=== PATIENT | female | born 1945 | race Caucasian/White ===

== ENCOUNTER 2016-08-23 11:50 | Emergency (ER) | payer MEDICARE, MEDICAID ==
[2016-08-23] MEDS ORDERED: Acetaminophen TAB* 325 MG PO ONE (12:11)
--- NOTE | 2016-08-23 13:48 | UC ---
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 Hx From Patient Unobtainable Due To: Other - moderate MR ?: No Onset/Duration: Gradual Onset, Lasting Days, Still Present Skin Exposure Onset/Duration: Days Ago Timing: Constant Onset Severity: Mild Current Severity: Mild Location: Discrete Character: Swelling, Redness Aggravating: Nothing Alleviating: Nothing Associated Signs & Symptoms: Negative: Red Streaks, Joint Swelling <Mae Richter - Last Filed: 08/23/16 19:19> <Lluvia Saunders - Last Filed: 08/24/16 06:55> - History of Current Complaint Chief Complaint: UCLowerExtremity Time Seen by Provider: 08/23/16 13:19 Stated Complaint: SWOLLEN LEG WOUND ON BACK OF LEG - Allergy/Home Medications Allergies/Adverse Reactions: Allergies Allergy/AdvReac Type Severity Reaction Status Date / Time No Known Allergies Allergy Verified 08/23/16 12:14 Review of Systems Constitutional: Negative Skin: Bruising - posterior right leg with scabbed abrasion and erythema around abrasion Eyes: Negative ENT: Negative Respiratory: Negative Cardiovascular: Negative Gastrointestinal: Negative Genitourinary: Negative Motor: Negative Neurovascular: Negative Musculoskeletal: Negative Neurological: Negative Psychological: Negative All Other Systems Reviewed And Are Negative: Yes <Mae Richter - Last Filed: 08/23/16 19:19> PMH/Surg Hx/FS Hx/Imm Hx Previously Healthy: Yes Endocrine History: Hypothyroidism Cardiovascular History: Hypertension GI/ History: Gastroesophageal Reflux Psychological History: Bipolar Disorder, Other Other Psychological History: moderate MR - Surgical History Surgical History: Yes Surgery Procedure, Year, and Place: [address] [place] [facility] [place]IL[place] HERNIA [place]PA[place] 02/19/2015 - Family History Known Family History: Negative: Cardiac Disease, Hypertension, Diabetes - Social History Occupation: Disabled Lives: Prison Alcohol Use: None Substance Use Type: None Smoking Status (MU): Former Smoker When Did the Patient Quit Smoking/Using Tobacco: 2003 <Mae Richter - Last Filed: 08/23/16 19:19> Physical Exam Triage Information Reviewed: Yes Appearance: Well-Appearing, No Pain Distress, Well-Nourished Vital Signs: Initial Vital Signs Temp 97.4 F 08/23/16 12:08 Pulse 66 08/23/16 12:08 Resp 18 08/23/16 12:08 BP 125/73 08/23/16 12:08 Pulse Ox 96 08/23/16 12:08 Vital Signs Reviewed: Yes Eye Exam: Normal Eyes: Positive: Conjunctiva Clear ENT Exam: Normal ENT: Positive: Normal ENT inspection, Hearing grossly normal. Negative: Nasal congestion, Nasal drainage, Trismus, Muffled/hoarse voice Dental Exam: Normal Neck exam: Normal Neck: Positive: Supple, Nontender Respiratory Exam: Normal Respiratory: Positive: Chest non-tender, No respiratory distress, No accessory muscle use Cardiovascular Exam: Normal Cardiovascular: Positive: RRR, No Murmur, Pulses Normal, Brisk Capillary Refill Musculoskeletal Exam: Normal Musculoskeletal: Positive: Strength Intact, ROM Intact, No Edema Neurological Exam: Normal Neurological: Positive: Alert, Muscle Tone Normal Psychological Exam: Normal Skin Exam: Other Skin: Positive: Other - sbabbed abrasion back of right leg with erythema <Mae Richter - Last Filed: 08/23/16 19:19> Vital Signs: Initial Vital Signs Temp 97.4 F 08/23/16 12:08 Pulse 66 08/23/16 12:08 Resp 18 08/23/16 12:08 BP 125/73 08/23/16 12:08 Pulse Ox 96 08/23/16 12:08 <Lluvia Saunders - Last Filed: 08/24/16 06:55> Course/Dx - Course Course Of Treatment: Mepilex dressing applied (2 additional given to patient) change q 3 days , 7 days of keflex,warm compress, follow with pcp - Differential Diagnoses - Skin Complaint Differential Diagnoses: Cellulitis, Impetigo - Diagnoses Provider Diagnoses: Abrasion with cellulitis posterior right lower leg <Mae Richter - Last Filed: 08/23/16 19:19> Discharge <Mae Richter - Last Filed: 08/23/16 19:19> <Lluvia Saunders - Last Filed: 08/24/16 06:55> - Discharge Plan Condition: Stable Disposition: HOME Prescriptions: Cephalexin CAP* [Keflex CAP*] 500 mg PO TID #21 cap Patient Education Materials: Cellulitis (ED), Leg Edema (ED) Referrals: Elif Luevano MD [Primary Care Provider] - 1 Week Additional Instructions: Change Mepilex dressing every three days times two then leave open to air Attestation Statement User Type: Provider Provider Attestation: I was available for consult. This patient was seen by the LIVIA. The patient was not presented to, seen by, or examined by me. -Federico <Lluvia Saunders - Last Filed: 08/24/16 06:55>
[2016-08-23 14:04] VITALS: BP 140/79
== END 2016-08-23 14:04 | disposition home or self-care (01) ==
LOC: UCEAST 11:50
DX: S80.811A Abrasion, right lower leg, initial encounter (principal); L03.115 Cellulitis of right lower limb; X58.XXXA Exposure to other specified factors, initial encounter; F79 Unspecified intellectual disabilities; I10 Essential (primary) hypertension; E03.9 Hypothyroidism, unspecified
CPT/HCPCS: 99212; A9270-GY; G0463

== ENCOUNTER 2017-01-09 09:23 | Day surgery (SDC) | payer MEDICARE, MEDICAID ==
[~2017-01-09 09:23] MED LIST: Acetaminophen TAB* 325 MG PO PRN; Buffered Lidocaine 0.9% SYRIN* 5 ML/SYR SYRINGE INTRADERM ONE
[2017-01-09] MEDS ORDERED: Midazolam* 1 MG/ML 2 ML VIAL (2 MG) ONE (10:10)
[2017-01-09 11:33] VITALS: BP 120/81
[2017-01-09] MEDS ORDERED: Flurbiprofen 0.03% OPTH.SOL* 2.5 ML BTL ONE (11:34)
[2017-01-09] MEDS ORDERED: Tropicamide 1% OPTH.SOL* BTL ONE (11:34)
[2017-01-09] MEDS ORDERED: Lidocaine 1% MPF* 2 ML VIAL ONE (11:34)
[2017-01-09] MEDS ORDERED: Tetracaine 0.5% OPTH.SOL 4 ML* 1 DROP BTL ONE (11:34)
[2017-01-09] MEDS ORDERED: Cyclopentolate 1% OPTH.SOL* 2 ML BTL ONE (11:34)
[2017-01-09] MEDS ORDERED: Buffered Lidocaine 0.9% SYRIN* 5 ML/SYR SYRINGE ONE (11:34)
[2017-01-09] MEDS ORDERED: Phenylephrine 2.5% OPTH.SOL* 2 ML BTL ONE (11:34)
[2017-01-09] MEDS ORDERED: acetaZOLAMIDE TAB* 250 MG ONE (11:34)
[2017-01-09] MEDS ORDERED: Povidone Iodine 5% OPTH* 30 ML BTL ONE (11:34)
[2017-01-09] MEDS ORDERED: Neomycin/Polymy/Dex OPHTH.OIN* 3.5 GM ONE (11:34)
--- NOTE | 2017-01-10 00:55 | OP ---
DATE OF OPERATION: 01/09/17 - [facility] DATE OF : 41 SURGEON: Hudson Kim MD ANESTHESIOLOGIST: Lluvia Ann MD ANESTHESIA: Monitored anesthesia care. PRE-OP DIAGNOSIS: Cataract, right eye. POST-OP DIAGNOSIS: Cataract, right eye. OPERATIVE PROCEDURE: Cataract surgery of the right eye. IMPLANTS: SN60WF 20.0 diopter lens to the right eye. COMPLICATIONS: None. DESCRIPTION OF PROCEDURE: The patient was given phenylephrine 2.5% and cyclopentolate 1% eye drops to the operative eye in the preoperative area. The patient was brought to the operating room where a time-out was taken to identify the correct patient, site and side of the surgery. The patient's right eye was prepped and draped in the usual sterile fashion with 5% Betadine. A second time- out was taken to verify the correct patient, site and side of the surgery and correct lens selection. A lid speculum was placed to the right eye. A 1-mm paracentesis blade was used to make a clear corneal incision in the superotemporal position. Preservative-free 1% lidocaine was injected into the anterior chamber. DisCoVisc was then injected in the anterior chamber. A 2.75-mm keratome blade was used to make a triplanar incision at the inferotemporal position. A cystotome initiated a capsulorrhexis, which was completed with Utrata forceps in a continuous and curvilinear manner. Hydrodissection of the lens was performed with BSS on a cannula. The lens could be spun in the capsular bag. The phacoemulsification handpiece was used with a [id number] technique to remove the nucleus in its entirety. The I/A handpiece then removed the residual cortical lens material. DisCoVisc was injected to inflate the capsular bag. The planned SN60WF 20.0 diopter lens was injected into the capsular bag. The residual DisCoVisc was removed from the eye with the I/A handpiece. The corneal incisions were hydrated and no leaks occurred at physiologic pressure around 20 mmHg per palpation. The lid speculum was removed and drapes removed. Maxitrol ointment was placed to the surface of the operative eye. A clear shield was placed over the operative eye. The patient was taken to the postoperative area in stable condition. [id number]/[facility] #: [id number] MTDD
== END 2017-01-09 11:48 | disposition home or self-care (01) ==
LOC: OREAST 09:23
PROVIDERS: ATTEND Student in an Organized Health Care Education/Training Program
DX: H25.11 Age-related nuclear cataract, right eye (principal); H31.092 Other chorioretinal scars, left eye; H43.821 Vitreomacular adhesion, right eye; I10 Essential (primary) hypertension; E03.9 Hypothyroidism, unspecified; F31.9 Bipolar disorder, unspecified; H52.4 Presbyopia; J44.9 Chronic obstructive pulmonary disease, unspecified; D64.9 Anemia, unspecified; R31.29 Other microscopic hematuria; H54.7 Unspecified visual loss
CPT/HCPCS: A9270-GY; J2250; V2632

== ENCOUNTER 2017-04-22 16:55 | Emergency (ER) | payer MEDICARE, MEDICAID ==
--- NOTE | 2017-04-22 17:45 | RAD ---
HISTORY: Left knee pain status post fall COMPARISONS: None VIEWS: 4, Frontal, lateral, axial, and oblique views of the left knee FINDINGS: BONE DENSITY: There is diffuse osteopenia. BONES: There is no displaced fracture. JOINTS: There is no arthropathy. There is no suprapatellar joint effusion or lipohemarthrosis. ALIGNMENT: There is no dislocation. SOFT TISSUES: Unremarkable. OTHER FINDINGS: None. IMPRESSION: NO ACUTE OSSEOUS INJURY. IF SYMPTOMS PERSIST, RECOMMEND REPEAT IMAGING.
--- OUTSIDE RECORDS SUMMARY | 2017-04-22 18:28 | XMS REPORT ---
:1945 External Reference #:[id number] [facility] Address [address] [address] Phone [phone] Care Team Providers Name Role Phone Elif Luevano MD Primary Care Physician Unavailable Payers Type Date Identification Numbers Payment Provider Subscriber Medicare Primary Effective: Policy Number: Medicare Carlene Mondragon 1975 [id number] PayID: [id number] [address] [place] [address] [employer] [place] [employer] Policy Number: [id number] Medicaid Carlene Mondragon PayID: [id number] [address] [place] [address] Problems Date Description Provider Status Onset: 12/21/2009 Chronic obstructive lung disease Elif Luevano M.D. Active Onset: 11/29/2012 Mixed hyperlipidemia Elif Luevano M.D. Active Onset: 11/29/2012 Hypothyroidism Elif Luevano M.D. Active Onset: 02/02/2015 Essential hypertension Elif Luevano M.D. Active Onset: 02/02/2015 Bipolar disorder Elif Luevano M.D. Active Family History Date Family Member(s) Problem(s) Comments Father due to Blood clots () - cable maintainer does not know details Siblings 5 Siblings 1 brother , two other living, details unknown brothers and one sister who are still First Brother due to Unknown Causes () Social History Type Date Description Comments Marital Status Single Lives With skilled nursing [facility] - skilled nursing. Staffed 12/09. 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 Mary Gregg [phone]. 2. 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 Senior Care caregiver Mary reported that the state would need to be contacted for major decisions Allergies, Adverse Reactions, Alerts Date Description Reaction Status Severity Comments 10/14/2009 No Known Drug Allergy active Medications Medication Date Status Form Strength Qnty SIG Indications Ordering Provider Jobst Active 03/13 Active Misc 1pair For daily R60.0 Elif 20-30MMHG/Thigh use Cotton, High/Closed M.D. Toe/Medium Bacitracin 09/13 Active Ointment 500Unit/G 28.40 apply to Elif (External) M 0gm skin twice Cotton, daily as M.D. needed Omeprazole 03/[address] 20mg 60cap Take 1 Lydia s Capsule By MD Tiarra Mouth Every Morning And 1 Capsule By Mouth At Bedtime Vitamin D 11/15 Active Tablets 1000Unit 90tab one daily Elif (Cholecalcifero /2015 s Bassem l) M.D. Atorvastatin 09/07 Active Tablets 80mg 90tab take one Elif Calcium s tablet by Cotton, mouth every M.D. day Hearing Aid 02/27 Active Misc 4unit use as Elif Battery /2015 s directed Cotton, hearing aid M.D. services. Incruse Ellipta 02/02 Active Aerosol 62.5mcg/I 30uni one J44.9 Elif /2015 nh ts inhalation Cotton, every day M.D. Spacer 07/25 Active 1unit for use J44.9 Elif s with Cotton, inhalers M.D. Nebulizer 01/21 Active Kit QS for use 4 Elif Kit/Tubing/Mout times daily Cotton, hpiece as needed M.D. Tylenol 04/03 Active Tablets 325mg 120ta 1-2 by Elif /2013 bs mouth every Cotton, 4-6 hrs as M.D. needed for pain Felodipine ER 04/03 Active Tablets ER 10mg 90tab take one Elif 24HR s tablet by Cotton, mouth every M.D. day Daily-Jairo 01/12 Active Tablets 90tab take one Elif /2010 s tablet by Cotton, mouth every M.D. day Trazodone HCL 10/16 Active Tablets 50mg 30tab 1 tablet Elif /2010 s once daily Bassem, at bedtime M.DSuzette [place] 10/14 Active Capsules 300mg 60cap 1 by mouth Elif Carbonate s twice daily Mino Luevano Flovent HFA 10/01 Active Aerosol 220mcg/Ac 3unit inhale two Elif /2010 t s puffs by Cotton, mouth twice M.D. a day Abilify Active Tablets 5mg 30tab 1 tablet Elif /0000 s once a day Mino Luevano Fluticasone Active Suspension 50mcg/Act 3unit use two Elif Propionate s sprays into Cotton, each M.D. nostril once daily Oxygen Active 2 liters at Unknown /0000 hs Labetalol HCL Active Tablets 200mg 180ta take one Elif bs tablet by Cotton, mouth twice M.D. a day Levothyroxine Active Tablets 150mcg 90tab take one Elif Sodium s tablet by Cotton, mouth every M.D. day Multi Complete Active Capsules daily Unknown /0000 Cephalexin 04/06 Hx Tablets 500mg 9tabs take one L03.115 Elif /2018 tablet Bassem, - every 8 M.D. 04/13 hours for /2018 additional 3 days (total 10 days) Jobst Active 07/21 Hx Misc 2Pair For daily R60.0 Elif 15-20MMHG/Knee use Cotton, High/Closed - M.D. Toe/Medium 03/13 Sulfamethoxazol 06/11 Hx Tablets 800-160mg 18tab Take One Unknown e/Trimethoprim s Tablet By DS - Mouth Two 07/21 Times A Day Levofloxacin 01/20 Hx Tablets 500mg 10tab one by 786.05 Filiebrto s mouth daily MARTINA Kc - for 10 days 01/31 Albuterol 01/20 Hx Nebulizer (2.5mg/3M 75ml one ampule 786.05 Elif L) 0.083% 2-4 times a Cotton, - day as M.D. 11/18 needed for sob. Spiriva 01/10 Hx Capsules 18mcg 30cap Inhale The J44.9 Elif Handihaler s Contents Of Cotton, - One Capsule M.D. 02/02 By Mouth /2014 Every Day Doxycycline 11/28 Hx Tablets 100mg 20tab 1 tab by 786.2 Elif Hyclate s mouth twice Cotton, - a day for M.D. 11/28 Doxycycline 11/28 Hx Tablets 100mg 20tab 1 tab by 786.2 Elif Hyclate s mouth twice Cotton, - a day for M.D. 11/28 Levofloxacin 11/28 Hx Tablets 750mg 10tab 1 by mouth 786.2 Elif s every day Cotton, - for 10 days M.D. 12/03 Zostavax 02/15 Hx Solution 66904Yph/ 1unit 1 dose s/c Rec 0.65ML s Cotton, - M.D. 03/30 Lipitor 12/29 Hx Tablets 80mg 90tab take one s tablet by Cotton, - mouth every M.D. Jobst Active 10/24 Hx Misc 2unit for daily Elif 20-30MMHG/Knee s use Dx: r Cotton, High/Closed Toe - 60.0 M.D. 07/21 Jobst Relief 10/14 Hx Misc 1unit For daily Elif 20-30MMHG/Knee /2012 s use calf Cotton, High/Open Toe - 14" length M.D. 10/24 17" knee 02/21" Cephalexin 09/19 Hx Capsules 500mg 21cap 1 po tid 682.6 Shana s for 7 days Varn, N.P. - 09/26 Amoxicillin/Cla 09/07 Hx Tablets 875-125mg 14tab one tablet 682.6 Shana vulanat s by mouth Varn, N.P. Potassium - twice daily 09/14 for 7 days Lipitor 07/04 Hx Tablets 40mg 90tab Take One s Tablet By Cotton, - Mouth Every M.D. Tussin DM 04/03 Hx Syrup 100-10mg/ prn 5ML Cotton, - M.D. 07/02 Ferrous Sulfate 07/11 Hx Tablets 325(65Fe) 30tab Take 1 mg s Tablet By Cotton, - Mouth 3 M.D. 11/30 Times Weekly; Increase To Once Daily Over 2 To 3 Weeks Atorvastatin 06/29 Hx Tablets 40mg 90tab 1 by mouth s once daily Cotton, - M.D. 07/04 Iron Supplement 04/02 Hx Tablets 325(65Fe) 30tab 1 po 3 mg s times Cotton, - weekly, M.D. 11/30 increase to once daily over 2-3 weeks Bag [place] 01/04 Hx apply to feet but Cotton, - not between M.D. 01/04 toes bid. Silicone Toe 01/[address] [facility] Wrap Slee and remove Cotton, - at night. M.D. 01/04 Travel Deferred 05/06 Hx Patient was advised not Cotton, - to travel M.D. 05/1304/27/10 through 05/11/10 due to a serious medical illness. Atrovent HFA 05/04 Hx Aerosol 17mcg/Act 12.9u Inhale Two J44.9 nits Puffs By Cotton, - Mouth Every M.D. 02/20 4 Hours Needed Mucinex 04/27 Hx Tablets ER 600mg 30tab one po 496 12HR s every 12 Cotton, - hours M.D. 05/04 Ipratropium 04/14 Hx Solution 0.5-2.5(3 60uni 1 vial in Elif [place]/Albuter )mg/3ML ts nebulizer Cotton, ol Sulfate - twice daily M.D. 05/04 Nebulizer 04/14 Hx 1unit use three s times daily Cotton, - as needed M.D. 05/04 Budesonide 04/14 Hx Suspension 0.5mg/2ML 60uni 2ml in Elif Respules ts nebulizer Cotton, - twice daily M.D. 05/04 Multi-Vitamin/M 11/13 Hx Tablets 30tab 1 by mouth Elif iner s once daily Cotton, - M.D. 01/12 Lipitor 10/22 Hx Tablets 40mg 90tab 1 by mouth Elif /2010 s once daily Cotton, - M.D. 06/29 Albuterol 10/14 Hx 1unit 2 puffs 4 Elif Inhaler s times a day Cotton, - as needed M.D. 01/05 Felodipine ER 09/03 Hx Tablets ER 5mg 90tab Take Two 24HR s TABLETs By Cotton, - Mouth Every M.D. Lipitor Hx Tablets 20mg 100ta one tablet Elif /0000 bs daily Cotton, - M.D. 10/22 Levaquin Hx Tablets 500mg 10tab 1 po qd Unknown / s - 05/04 Guaifenesin-DM Hx Syrup 100-10mg/ 120cc 1-2 Elif /0000 5ML teaspoons [place], - every 4-6 M.D. 07/09 hours needed Prednisone Hx Tablets 20mg 10tab 1 tablet Unknown / s twice a day - 05/04 Vitamin D Hx Capsules 1000Unit 30cap po qd Unknown / s - 11/15 Gas-X Hx Chewtabs 80mg prn Unknown /0000 - 07/02 Amoxicillin/Pot 00 Hx Tablets 875-125mg 20tab 1 po bid Unknown assium / s Clavulanate - 10/05 Bacitracin Hx Ointment as needed Unknown /0000 - 09/13 Amoxicillin/Cla /00 Hx Tablets 875-125mg one tablet Unknown vulanate /0000 by mouth Potassium - twice daily 10/12 for 10 days /2015 Cephalexin Hx Tablets 500mg take 1 by Unknown /0000 mouth three - times a day 12/21 x 7 Medications Administered in Office Medication Date Status Form Strength Qnty SIG Indications Ordering Provider PPD 02/08/20 Administered Injection Elif 16 Mino Luevano PPD 12/12/19 Administered Injection Romie Walker M.D. PPD 08/30/19 Administered Injection Fabby Walker M.D. PPD 08/30/19 Administered Injection Fabby Walker M.D. Immunizations CPT Code Status Date Vaccine Lot # [id number] Given 01/27/2014 Pneumococcal Conjugate Vaccine 13 Valent For [id number] Intramuscular Use 91333 Given 01/10/2014 Flu Vaccine Split Virus Preservative Free For [id number] Indiv 3Yr Older 23825 Given 11/29/2012 Flu Vaccine Split Virus Preservative Free For [id number] Indiv 3Yr Older Q2038 Given 11/28/2011 Fluzone Vaccine [id number] 54927 Given 04/25/2011 Tdap - Tetanus/Diptheria/Acellular Pertussis [id number] Q2035 Given 11/23/2010 Afluria Vaccine [id number] 24099 Given 12/05/2009 Influenza Virus 3Yrs & Over 18693 Given 10/16/2009 Pneumonia Vaccine 01420 Given 02/27/2009 Influenza Virus Vaccine, Pandemic Formulation 95499 Given 10/13/2008 Influenza Virus 3Yrs & Over 09350 Given 12/12/2007 Influenza Virus 3Yrs & Over 12256 Given 12/12/2007 Influenza Virus 3Yrs & Over 86815 Given 11/29/2006 Influenza Virus 3Yrs & Over 62694 Given 08/29/2006 Tetanus And Diptheria (Td) For Adult Use Preservative Free Vital Signs Date Vital Result Comment 04/17/2017 Weight 156.50 lb Heart Rate 79 /min BP Systolic Sitting 130 mmHg BP Diastolic Sitting 82 mmHg Body Temperature 97.6 F O2 % BldC Oximetry 92 % 04/10/2017 Weight 152.50 lb Heart Rate 67 /min BP Systolic 124 mmHg BP Diastolic 76 mmHg Body Temperature 96.9 F O2 % BldC Oximetry 92 % 04/06/2017 Weight 154.50 lb Heart Rate 78 /min BP Systolic 124 mmHg BP Diastolic 72 mmHg Body Temperature 96.6 F O2 % BldC Oximetry 96 % 03/13/2017 Weight 154.75 lb Heart Rate 63 /min BP Systolic 120 mmHg BP Diastolic 70 mmHg Body Temperature 97.7 F O2 % BldC Oximetry 97 % 12/23/2016 Height 58 inches 4'10" Weight 144.00 lb Heart Rate 74 /min BP Systolic 130 mmHg BP Diastolic 80 mmHg Body Temperature 98.2 F O2 % BldC Oximetry 94 % BMI (Body Mass Index) 30.1 kg/m2 09/20/2016 Weight 140.25 lb Heart Rate 84 /min BP Systolic 140 mmHg BP Diastolic 68 mmHg Body Temperature 98.6 F O2 % BldC Oximetry 96 % 08/30/2016 Weight 137.00 lb Heart Rate 60 /min BP Systolic Sitting 100 mmHg BP Diastolic Sitting 70 mmHg Respiratory Rate 16 /min Body Temperature 97.6 F 07/21/2016 Weight 134.00 lb Heart Rate 55 /min BP Systolic Sitting 136 mmHg BP Diastolic Sitting 70 mmHg O2 % BldC Oximetry 98 % 06/14/2016 Weight 139.00 lb Heart Rate 81 /min BP Systolic Sitting 114 mmHg BP Diastolic Sitting 72 mmHg Body Temperature 97.8 F O2 % BldC Oximetry 94 % 06/06/2016 Heart Rate 82 /min BP Systolic Sitting 136 mmHg BP Diastolic Sitting 82 mmHg Respiratory Rate 16 /min 05/13/2016 Weight 137.00 lb Heart Rate 62 /min BP Systolic Sitting 134 mmHg BP Diastolic Sitting 88 mmHg Body Temperature 97.6 F O2 % BldC Oximetry 97 % 04/18/2016 Weight 133.00 lb Heart Rate 68 /min BP Systolic Sitting 124 mmHg BP Diastolic Sitting 86 mmHg Body Temperature 97.8 F O2 % BldC Oximetry 93 % 02/26/2016 Height 58 inches 4'10" Weight 139.00 lb Heart Rate 66 /min BP Systolic Sitting 136 mmHg BP Diastolic Sitting 77 mmHg Respiratory Rate 16 /min O2 % BldC Oximetry 97 % BMI (Body Mass Index) 29.0 kg/m2 02/11/2016 Height 58 inches 4'10" Weight 137.00 lb Heart Rate 65 /min BP Systolic 130 mmHg BP Diastolic 78 mmHg O2 % BldC Oximetry 95 % BMI (Body Mass Index) 28.6 kg/m2 02/08/2016 Height 58 inches 4'10" Weight 137.00 lb Heart Rate 70 /min BP Systolic Sitting 140 mmHg BP Diastolic Sitting 80 mmHg O2 % BldC Oximetry 98 % BMI (Body Mass Index) 28.6 kg/m2 11/19/2015 Height 58.25 inches 4'10.25" Weight 139.00 lb Heart Rate 61 /min BP Systolic 139 mmHg BP Diastolic 82 mmHg Body Temperature 97.9 F O2 % BldC Oximetry 97 % BMI (Body Mass Index) 28.8 kg/m2 11/02/2015 Weight 138.00 lb Heart Rate 68 /min BP Systolic Sitting 142 mmHg BP Diastolic Sitting 84 mmHg Body Temperature 98.3 F 10/13/2015 Weight 137.00 lb Heart Rate 66 /min BP Systolic Sitting 124 mmHg BP Diastolic Sitting 72 mmHg Respiratory Rate 15 /min Body Temperature 98.4 F O2 % BldC Oximetry 98 % 09/29/2015 Weight 135.00 lb Heart Rate 76 /min BP Systolic Sitting 122 mmHg BP Diastolic Sitting 70 mmHg Respiratory Rate 15 /min Body Temperature 97.6 F O2 % BldC Oximetry 98 % 07/27/2015 Weight 139.00 lb Heart Rate 60 /min BP Systolic Sitting 136 mmHg BP Diastolic Sitting 73 mmHg Body Temperature 97.7 F O2 % BldC Oximetry 97 % 04/09/2015 Height 58.25 inches 4'10.25" Weight 143.00 lb Heart Rate 72 /min BP Systolic Sitting 124 mmHg BP Diastolic Sitting 80 mmHg Respiratory Rate 14 /min O2 % BldC Oximetry 98 % BMI (Body Mass Index) 29.6 kg/m2 02/02/2015 Height 58.25 inches 4'10.25" Weight 141.50 lb Heart Rate 77 /min BP Systolic Sitting 130 mmHg 146/76 BP Diastolic Sitting 80 mmHg 146/76 Respiratory Rate 20 /min Body Temperature 98.0 F O2 % BldC Oximetry 94 % BMI (Body Mass Index) 29.3 kg/m2 10/20/2014 Weight 143.00 lb Heart Rate 67 /min BP Systolic Sitting 122 mmHg BP Diastolic Sitting 70 mmHg Body Temperature 97.5 F O2 % BldC Oximetry 97 % 07/25/2014 Weight 144.00 lb Heart Rate 69 /min BP Systolic Sitting 146 mmHg BP Diastolic Sitting 81 mmHg Body Temperature 97.8 F 07/09/2014 Height 58.75 inches 4'10.75" Weight 143.00 lb Heart Rate 50 /min BP Systolic 112 mmHg BP Diastolic 62 mmHg O2 % BldC Oximetry 93 % BMI (Body Mass Index) 29.1 kg/m2 01/27/2014 Weight 151.00 lb Heart Rate 72 /min BP Systolic 110 mmHg BP Diastolic 60 mmHg Body Temperature 98.2 F O2 % BldC Oximetry 97 % 01/20/2014 Height 58.75 inches 4'10.75" Weight 153.00 lb Heart Rate 96 /min BP Systolic Sitting 110 mmHg BP Diastolic Sitting 60 mmHg Body Temperature 101.5 F O2 % BldC Oximetry 90 % BMI (Body Mass Index) 31.2 kg/m2 01/10/2014 Height 58.75 inches 4'10.75" Weight 153.50 lb Heart Rate 72 /min BP Systolic Sitting 128 mmHg BP Diastolic Sitting 70 mmHg Body Temperature 97.3 F O2 % BldC Oximetry 97 % BMI (Body Mass Index) 31.3 kg/m2 11/28/2013 Weight 156.00 lb Heart Rate 90 /min BP Systolic Sitting 134 mmHg BP Diastolic Sitting 72 mmHg Body Temperature 100.6 F O2 % BldC Oximetry 98 % 07/02/2013 Weight 156.00 lb Heart Rate 60 /min BP Systolic Sitting 114 mmHg BP Diastolic Sitting 62 mmHg Body Temperature 98.5 F O2 % BldC Oximetry 95 % 04/01/2013 Weight 157.00 lb Heart Rate 60 /min BP Systolic 124 mmHg BP Diastolic 76 mmHg 11/29/2012 Height 58.5 inches 4'10.50" Weight 156.00 lb Heart Rate 64 /min BP Systolic Sitting 122 mmHg BP Diastolic Sitting 80 mmHg BMI (Body Mass Index) 32.0 kg/m2 10/05/2012 Weight 154.50 lb Heart Rate 60 /min BP Systolic Sitting 130 mmHg BP Diastolic Sitting 70 mmHg Body Temperature 98.1 F 09/19/2012 Weight 150.00 lb Heart Rate 64 /min BP Systolic Sitting 120 mmHg BP Diastolic Sitting 72 mmHg Body Temperature 98.6 F 09/07/2012 Weight 149.00 lb Heart Rate 66 /min BP Systolic Sitting 140 mmHg BP Diastolic Sitting 84 mmHg Body Temperature 98.6 F 06/04/2012 Weight 151.00 lb Heart Rate 56 /min BP Systolic Sitting 120 mmHg BP Diastolic Sitting 68 mmHg 04/03/2012 Height 58.5 inches 4'10.50" Weight 150.50 lb Heart Rate 56 /min BP Systolic Sitting 120 mmHg right: 120/60 recheck by me 118/74 BP Diastolic Sitting 70 mmHg right: 120/60 recheck by me 118/74 BMI (Body Mass Index) 30.9 kg/m2 11/28/2011 Height 58.5 inches 4'10.50" Weight 153.00 lb Heart Rate 56 /min BP Systolic Sitting 128 mmHg BP Diastolic Sitting 74 mmHg O2 % BldC Oximetry 97 % BMI (Body Mass Index) 31.4 kg/m2 04/25/2011 Height 58.5 inches 4'10.50" Weight 159.00 lb Heart Rate 70 /min BP Systolic Sitting 118 mmHg BP Diastolic Sitting 64 mmHg BMI (Body Mass Index) 32.7 kg/m2 11/23/2010 Height 58.5 inches 4'10.50" Weight 164.00 lb Heart Rate 70 /min BP Systolic Sitting 130 mmHg BP Diastolic Sitting 82 mmHg BMI (Body Mass Index) 33.7 kg/m2 07/09/2010 Height 58.5 inches 4'10.50" Weight 167.00 lb Heart Rate 64 /min BP Systolic Sitting 110 mmHg BP Diastolic Sitting 78 mmHg O2 % BldC Oximetry 95 % BMI (Body Mass Index) 34.3 kg/m2 05/04/2010 Weight 169.00 lb Heart Rate 58 /min BP Systolic 118 mmHg BP Diastolic 78 mmHg Body Temperature 98.3 F O2 % BldC Oximetry 97 % 04/27/2010 Weight 168.75 lb Heart Rate 68 /min BP Systolic 102 mmHg BP Diastolic 70 mmHg Body Temperature 98.5 F O2 % BldC Oximetry 92 % 04/19/2010 Heart Rate 85 /min BP Systolic 122 mmHg BP Diastolic 80 mmHg Respiratory Rate 20 /min Body Temperature 98.9 F O2 % BldC Oximetry 90 % 04/14/2010 Weight 171.00 lb Heart Rate 70 /min BP Systolic 124 mmHg BP Diastolic 86 mmHg Body Temperature 97.0 F O2 % BldC Oximetry 92 % 10/16/2009 Height 57 inches 4'9" Weight 171.75 lb Heart Rate 58 /min BP Systolic 115 mmHg BP Diastolic 70 mmHg BMI (Body Mass Index) 37.2 kg/m2 Results Test Date Test Result H/L Range Note Urinalysis Profile 03/24/2017 Urine Color Straw Urine Appearance Clear Urine Specific [place] 1.004 Low 1.010-1.030 Urine pH 7.0 5-9 Urine Urobilinogen Negative Negative Urine Ketones Negative Negative Urine Protein Negative Negative Urine Leukocytes 1+ Negative Urine Blood Negative Negative Urine Nitrite Negative Negative Urine Bilirubin Negative Negative Urine Glucose Negative Negative Urine White Blood Cell Trace(0-5/hpf) Absent Urine Red Blood Cell Absent Absent Urine Bacteria Absent Absent Urine Squamous Epithelial Cell Present Absent Urine Culture And 03/24/2017 Urine Culture SEE RESULT BELOW 1 Sensitivities Basic Metabolic Panel 03/24/2017 Sodium 142 mmol/L 133-145 Potassium 3.9 mmol/L 3.5-5.0 Chloride 109 mmol/L 101-111 Co2 Carbon Dioxide 29 mmol/L 22-32 Anion Gap 4 mmol/L 2-11 Glucose 80 mg/dL 70-100 Blood Urea Nitrogen 16 mg/dL 6-24 Creatinine 0.84 mg/dL 0.51-0.95 BUN/Creatinine Ratio 19.0 8-20 Calcium 9.9 mg/dL 8.6-10.3 Egfr Non- 66.5 >60 Egfr 85.5 >60 2 Lipid Profile (Trig/Chol/HDL) 03/24/2017 Triglycerides 60 mg/dL 3 Cholesterol 188 mg/dL 4 HDL Cholesterol 93.0 mg/dL 5 LDL Cholesterol 83 mg/dL 6 Comp Metabolic Panel 03/24/2017 Sodium 143 mmol/L 133-145 Potassium 3.9 mmol/L 3.5-5.0 Chloride 108 mmol/L 101-111 Co2 Carbon Dioxide 29 mmol/L 22-32 Anion Gap 6 mmol/L 2-11 Glucose 78 mg/dL 70-100 Blood Urea Nitrogen 16 mg/dL 6-24 Creatinine 0.85 mg/dL 0.51-0.95 BUN/Creatinine Ratio 18.8 8-20 Calcium 10.0 mg/dL 8.6-10.3 Total Protein 6.7 g/dL 6.4-8.9 Albumin 4.1 g/dL 3.2-5.2 Globulin 2.6 g/dL 2-4 Albumin/Globulin Ratio 1.6 1-3 Total Bilirubin 0.60 mg/dL 0.2-1.0 Alkaline Phosphatase 87 U/L 34-104 Alt 27 U/L 7-52 Ast 30 U/L 13-39 Egfr Non- 65.6 >60 Egfr 84.3 >60 7 Laboratory test finding 03/24/2017 TSH (Thyroid Stim 5.62 mcIU/mL High 0.34-5.60 8 Horm) [place] 0.51 mmol/L Low 0.6-1.2 9 Lupus Anticoagulant AB 09/14/2016 Lac Aptt Mix 1:1 43 sec 26 - 36 10 Lac DRVVT Mix Ratio 1.7 ratio 0.0 - 1.1 11 Lup Hexthrombin Time (Bovine) 19 sec 15 - 23 12 Platelet Neutralization 43 13 Platelet Neutraliz Buffer Cont 56 sec 14 Dil [place] Confirm 1.9 ratio 0.0 - 1.1 15 Special Coagulation Interp Performed 16 Prothrombin Time(Lac) 10.8 sec 17 Lac Inr 1.0 Lac Aptt 49 sec 26 - 36 Lac DRVVT Screen Ratio 2.0 ratio 0.0 - 1.1 Lupus Anticoagulant Interpreta See Comment 18 Lupus Anticoagulant Review By Brandee Martinez <SEE NOTE> 19 Factor 8 Profile 09/14/2016 Coagulation Factor VIII Activi 153 % 55 - 200 20 von Willebrand Factor Antigen 199 % 55 - 200 21 VonWillibrand Factor Activity 172 % 55 - 200 22 von Willebrand Panel Interp See Comment 23 PTT Mixing Studies 09/14/2016 PTT/Normal Control 35.7 seconds 26.0-36.3 PTT/After 1 HR Incubation 39.6 seconds High 26.0-36.3 PT/PTT Mixing Study Interp (SEE NOTE) 24 Laboratory test finding 09/14/2016 Partial Thrombo Time 48.2 seconds High 26.0-36.3 PTT Inr/Protime 09/14/2016 Inr 0.90 0.89-1.11 CBC Auto Diff 06/28/2016 White Blood Count 7.9 10^3/uL 3.5-10.8 Red Blood Count 4.14 10^6/uL 4.0-5.4 Hemoglobin 12.8 g/dL 12.0-16.0 Hematocrit 39 % 35-47 Mean Corpuscular Volume 93 fL 80-97 Mean Corpuscular Hemoglobin 31 pg 27-31 Mean Corpuscular HGB Conc 33 g/dL 31-36 Red Cell Distribution Width 14 % 10.5-15 Platelet Count 381 10^3/uL 150-450 Mean Platelet Volume 8 um3 7.4-10.4 Abs Neutrophils 5.7 10^3/uL 1.5-7.7 Abs Lymphocytes 1.6 10^3/uL 1.0-4.8 Abs Monocytes 0.4 10^3/uL 0-0.8 Abs Eosinophils 0.1 10^3/uL 0-0.6 Abs Basophils 0.1 10^3/uL 0-0.2 Abs Nucleated RBC 0.01 10^3/uL Granulocyte % 71.9 % 38-83 Lymphocyte % 20.0 % Low 25-47 Monocyte % 5.5 % 1-9 Eosinophil % 1.2 % 0-6 Basophil % 1.4 % 0-2 Nucleated Red Blood Cells % 0.1 Iron & Iron Binding Capacity 06/28/2016 Iron 67 g/dL 50-212 Unsaturated Iron Binding 450 g/dL Total Iron Binding Capacity 517 g/dL High 250-450 % Iron Saturation 13 % Low 15-55 Laboratory test finding 06/28/2016 Ferritin 14.8 ng/mL 11-307 Inr/Protime 06/28/2016 Inr 0.89 0.89-1.11 Laboratory test finding 06/28/2016 Partial Thrombo Time 51.4 seconds High 26.0-36.3 PTT [place] 0.50 mmol/L Low 0.6-1.2 Laboratory test finding 06/09/2016 [place] 0.55 mmol/L Low 0.6-1.2 TSH (Thyroid Stim Horm) 1.34 mcIU/mL 0.34-5.60 B-Type Natriuretic Peptide BNP 23 pg/mL 25 Lactic Acid 1.0 mmol/L 0.5-2.0 26 CKMB 06/09/2016 CKMB ng/mL 4.1 ng/mL 0.6-6.3 Urinalysis Profile 06/09/2016 Urine Color Yellow Urine Appearance Cloudy Urine Specific [place] 1.003 Low 1.010-1.030 Urine pH 6.0 5-9 Urine Urobilinogen Negative Negative Urine Ketones Negative Negative Urine Protein Negative Negative Urine Leukocytes 3+ Negative Urine Blood Negative Negative Urine Nitrite Negative Negative Urine Bilirubin Negative Negative Urine Glucose Negative Negative Urine White Blood Cell 2+(11-20/hpf) Absent Urine Red Blood Cell 2+(6-10/hpf) Absent Urine Bacteria Absent Absent Urine Squamous Epithelial Cell Present Absent Urine Culture And 06/09/2016 Urine Culture SEE RESULT BELOW 27 Sensitivities CBC Auto Diff 06/09/2016 White Blood Count 9.9 10^3/uL 3.5-10.8 Red Blood Count 3.78 10^6/uL Low 4.0-5.4 Hemoglobin 11.8 g/dL Low 12.0-16.0 Hematocrit 35 % 35-47 Mean Corpuscular Volume 93 fL 80-97 Mean Corpuscular Hemoglobin 31 pg 27-31 Mean Corpuscular HGB Conc 33 g/dL 31-36 Red Cell Distribution Width 14 % 10.5-15 Platelet Count 269 10^3/uL 150-450 Mean Platelet Volume 7 um3 Low 7.4-10.4 Abs Neutrophils 8.8 10^3/uL High 1.5-7.7 Abs Lymphocytes 0.6 10^3/uL Low 1.0-4.8 Abs Monocytes 0.4 10^3/uL 0-0.8 Abs Eosinophils 0.1 10^3/uL 0-0.6 Abs Basophils 0.1 10^3/uL 0-0.2 Abs Nucleated RBC 0 10^3/uL Granulocyte % 88.7 % High 38-83 Lymphocyte % 5.8 % Low 25-47 Monocyte % 3.7 % 1-9 Eosinophil % 1.2 % 0-6 Basophil % 0.6 % 0-2 Nucleated Red Blood Cells % 0 Inr/Protime 06/09/2016 Inr 0.91 0.89-1.11 Laboratory test finding 06/09/2016 Partial Thrombo Time 45.7 seconds High 26.0-36.3 PTT Laboratory test finding 06/09/2016 Magnesium 1.9 mg/dL 1.9-2.7 Lipase 19 U/L 11.0-82.0 Creatine Kinase(CK) 100 U/L 10-223 C Reactive Protein 11.49 mg/L High < 5.00 28 Troponin-I (TnI) 0.00 ng/mL <0.04 29 Comp Metabolic Panel 06/09/2016 Sodium 136 mmol/L 133-145 Potassium 3.4 mmol/L Low 3.5-5.0 Chloride 106 mmol/L 101-111 Co2 Carbon Dioxide 26 mmol/L 22-32 Anion Gap 4 mmol/L 2-11 Glucose 107 mg/dL High 70-100 Blood Urea Nitrogen 16 mg/dL 6-24 Creatinine 0.79 mg/dL 0.51-0.95 BUN/Creatinine Ratio 20.3 High 8-20 Calcium 9.5 mg/dL 8.6-10.3 Total Protein 6.2 g/dL Low 6.4-8.9 Albumin 3.6 g/dL 3.2-5.2 Globulin 2.6 g/dL 2-4 Albumin/Globulin Ratio 1.4 1-3 Total Bilirubin 0.80 mg/dL 0.2-1.0 Alkaline Phosphatase 89 U/L 34-104 Alt 38 U/L 7-52 Ast 42 U/L High 13-39 Egfr Non- 71.5 >60 Egfr 92.0 >60 30 Comp Metabolic Panel 04/30/2016 Albumin 3.9 g/dL 3.2-5.2 Total Bilirubin 0.60 mg/dL 0.2-1.0 Sodium 138 mmol/L 133-145 Potassium 4.1 mmol/L 3.5-5.0 Chloride 105 mmol/L 101-111 Co2 Carbon Dioxide 26 mmol/L 22-32 Anion Gap 7 mmol/L 2-11 Glucose 84 mg/dL 70-100 Blood Urea Nitrogen 17 mg/dL 6-24 Creatinine 0.83 mg/dL 0.51-0.95 BUN/Creatinine Ratio 20.5 High 8-20 Calcium 9.7 mg/dL 8.6-10.3 Total Protein 6.8 g/dL 6.4-8.9 Globulin 2.9 g/dL 2-4 Albumin/Globulin Ratio 1.3 1-3 Alkaline Phosphatase 82 U/L 34-104 Alt 43 U/L 7-52 Ast 37 U/L 13-39 Egfr Non- 67.6 >60 Egfr 86.9 >60 31 Lipid Profile (Trig/Chol/HDL) 04/07/2016 Triglycerides 95 mg/dL 32 Cholesterol 161 mg/dL 33 HDL Cholesterol 64.3 mg/dL 34 LDL Cholesterol 78 mg/dL 35 Comp Metabolic Panel 04/07/2016 Sodium 139 mmol/L 133-145 Potassium 3.7 mmol/L 3.5-5.0 Chloride 105 mmol/L 101-111 Co2 Carbon Dioxide 28 mmol/L 22-32 Anion Gap 6 mmol/L 2-11 Glucose 92 mg/dL 70-100 Blood Urea Nitrogen 12 mg/dL 6-24 Creatinine 0.75 mg/dL 0.51-0.95 BUN/Creatinine Ratio 16.0 8-20 Calcium 9.6 mg/dL 8.6-10.3 Total Protein 6.7 g/dL 6.4-8.9 Albumin 3.8 g/dL 3.2-5.2 Globulin 2.9 g/dL 2-4 Albumin/Globulin Ratio 1.3 1-3 Total Bilirubin 0.60 mg/dL 0.2-1.0 Alkaline Phosphatase 130 U/L High 34-104 Alt 68 U/L High 7-52 Ast 35 U/L 13-39 Egfr Non- 76.0 >60 Egfr 97.7 >60 36 Laboratory test finding 01/23/2016 [place] 0.50 mmol/L Low 0.6-1.2 37 TSH (Thyroid Stim Horm) 2.24 mcIU/mL 0.34-5.60 38 Urinalysis Profile 01/23/2016 Urine Color Colorless Urine Appearance Clear Urine Specific [place] 1.003 Low 1.010-1.030 Urine pH 7.0 5-9 Urine Urobilinogen Negative Negative Urine Ketones Negative Negative Urine Protein Negative Negative Urine Leukocytes Negative Negative Urine Blood Negative Negative Urine Nitrite Negative Negative Urine Bilirubin Negative Negative Urine Glucose Negative Negative Laboratory test finding 11/18/2015 Blood Urea Nitrogen BUN 16 mg/dL 6-24 Creatinine 11/18/2015 Creatinine 0.80 mg/dL 0.51-0.95 Egfr Non- 70.5 >60 Egfr 90.7 >60 39 Laboratory test finding 07/08/2015 [place] 0.53 mmol/L Low 0.6-1.2 40 Comp Metabolic Panel 07/08/2015 Sodium 141 mmol/L 133-145 Potassium 4.1 mmol/L 3.5-5.0 Chloride 108 mmol/L 101-111 Co2 Carbon Dioxide 28 mmol/L 22-32 Anion Gap 5 mmol/L 2-11 Glucose 88 mg/dL 70-100 Blood Urea Nitrogen 15 mg/dL 6-24 Creatinine 0.78 mg/dL 0.51-0.95 BUN/Creatinine Ratio 19.2 8-20 Calcium 9.9 mg/dL 8.6-10.3 Total Protein 6.5 g/dL 6.4-8.9 Albumin 4.0 g/dL 3.2-5.2 Globulin 2.5 g/dL 2-4 Albumin/Globulin Ratio 1.6 1-3 Total Bilirubin 0.70 mg/dL 0.2-1.0 Alkaline Phosphatase 76 U/L 34-104 Alt 32 U/L 7-52 Ast 28 U/L 13-39 Egfr Non- 72.8 >60 Egfr 93.6 >60 41 Lipid Profile (Trig/Chol/HDL) 07/08/2015 Triglycerides 87 mg/dL 42 Cholesterol 174 mg/dL 43 HDL Cholesterol 71.5 mg/dL 44 LDL Cholesterol 85 mg/dL 45 CBC No Diff 07/08/2015 White Blood Count 7.8 10^3/uL 3.5-10.8 Red Blood Count 4.21 10^6/uL 4.0-5.4 Hemoglobin 13.3 g/dL 12.0-16.0 Hematocrit 40 % 35-47 Mean Corpuscular Volume 94 fL 80-97 Mean Corpuscular Hemoglobin 32 pg High 27-31 Mean Corpuscular HGB Conc 34 g/dL 31-36 Red Cell Distribution Width 14 % 10.5-15 Platelet Count 299 10^3/uL 150-450 Mean Platelet Volume 8 um3 7.4-10.4 Laboratory test finding 07/08/2015 Alpha 1 Antitrypsin A1a 125 mg/dL 100 - 190 46 Urinalysis Profile 07/08/2015 Urine Color Straw Urine Appearance Clear Urine Specific [place] 1.003 Low 1.010-1.030 Urine pH 7.0 5-9 Urine Urobilinogen Negative Negative Urine Ketones Negative Negative Urine Protein Negative Negative Urine Leukocytes Negative Negative Urine Blood 2+ Negative Urine Nitrite Negative Negative Urine Bilirubin Negative Negative Urine Glucose Negative Negative Urine White Blood Cell Absent Absent Urine Red Blood Cell 2+(6-10/hpf) Absent Urine Bacteria Absent Absent Urine Squamous Epithelial Cell Present Absent CBC No Diff 04/09/2015 White Blood Count 10.2 10^3/uL 3.5-10.8 Red Blood Count 3.90 10^6/uL Low 4.0-5.4 Hemoglobin 12.3 g/dL 12.0-16.0 Hematocrit 36 % 35-47 Mean Corpuscular Volume 93 fL 80-97 Mean Corpuscular Hemoglobin 32 pg High 27-31 Mean Corpuscular HGB Conc 34 g/dL 31-36 Red Cell Distribution Width 14 % 10.5-15 Platelet Count 379 10^3/uL 150-450 Mean Platelet Volume 8 um3 7.4-10.4 Urinalysis Profile 10/20/2014 Urine Color Straw Urine Appearance Clear Urine Specific [place] 1.004 Low 1.010-1.030 Urine pH 7.0 5-9 Urine Urobilinogen Negative Negative Urine Ketones Negative Negative Urine Protein Negative Negative Urine Leukocytes Negative Negative Urine Blood Negative Negative Urine Nitrite Negative Negative Urine Bilirubin Negative Negative Urine Glucose Negative Negative Ua Routine 07/09/2014 Ua Specific [place] 1.000 Ua PH 6.0 Ua Color yellow Ua Appera clear Ua WBC neg Ua Protein neg Ua Glucose neg Ua Ketones neg Ua Bilirubin neg Ua Urobilinogen normal Ua Nitrite neg Ua Occult Blood neg Urine Culture And Sensitivities 06/24/2014 Urine Culture (SEE NOTE) 47 Lipid Profile (Trig/Chol/HDL) 06/24/2014 Triglycerides 91 mg/dL 48 Cholesterol 171 mg/dL 49 HDL Cholesterol 62.6 mg/dL 50 LDL Cholesterol 90 mg/dL 51 Comp Metabolic Panel 06/24/2014 Sodium 140 mmol/L 133-145 Potassium 4.1 mmol/L 3.5-5.0 Chloride 108 mmol/L 101-111 Co2 Carbon Dioxide 28 mmol/L 22-32 Anion Gap 4 mmol/L 2-11 Glucose 90 mg/dL 70-100 Blood Urea Nitrogen 14 mg/dL 6-24 Creatinine 0.86 mg/dL 0.51-0.95 BUN/Creatinine Ratio 16.3 8-20 Calcium 10.0 mg/dL 8.6-10.3 Total Protein 7.1 g/dL 6.4-8.9 Albumin 4.4 g/dL 3.2-5.2 Globulin 2.7 g/dL 2-4 Albumin/Globulin Ratio 1.6 1-3 Total Bilirubin 0.60 mg/dL 0.2-1.0 Alkaline Phosphatase 90 U/L 34-104 Alt 23 U/L 7-52 Ast 32 U/L 13-39 Egfr Non- 65.2 >60 Egfr 83.9 >60 52 Laboratory test finding 06/24/2014 [place] 0.47 mmol/L Low 0.6-1.2 TSH (Thyroid Stimulating Horm) 2.63 IU/mL 0.34-5.60 CBC Auto Diff 06/24/2014 White Blood Count 9.7 10^3/uL 4.8-10.8 Red Blood Count 4.44 10^6/uL 4.0-5.4 Hemoglobin 14.2 g/dL 12.0-16.0 Hematocrit 41 % 35-47 Mean Corpuscular Volume 93 fL 80-97 Mean Corpuscular Hemoglobin 32 pg High 27-31 Mean Corpuscular HGB Conc 35 g/dL 31-36 Red Cell Distribution Width 14 % 10.5-15 Platelet Count 307 10^3/uL 150-450 Mean Platelet Volume 8 um3 7.4-10.4 Abs Neutrophils 7.9 10^3/uL High 1.5-7.7 Abs Lymphocytes 1.0 10^3/uL 1.0-4.8 Abs Monocytes 0.4 10^3/uL 0-0.8 Abs Eosinophils 0.2 10^3/uL 0-0.6 Abs Basophils 0.1 10^3/uL 0-0.2 Abs Nucleated RBC 0.01 10^3/uL Granulocyte % 82.2 % 38-83 Lymphocyte % 10.5 % Low 25-47 Monocyte % 4.0 % 1-9 Eosinophil % 2.6 % 0-6 Basophil % 0.7 % 0-2 Nucleated Red Blood Cells % 0.1 Urinalysis Profile 06/24/2014 Urine Color Straw Urine Appearance Clear Urine Specific [place] 1.003 Low 1.010-1.030 Urine pH 7.0 5-9 Urine Urobilinogen Negative Negative Urine Ketones Negative Negative Urine Protein Negative Negative Urine Leukocytes Trace Negative Urine Blood Negative Negative Urine Nitrite Negative Negative Urine Bilirubin Negative Negative Urine Glucose Negative Negative Urine White Blood Cell Trace(0-5/hpf) Absent Urine Red Blood Cell 2+(6-10/hpf) Absent Urine Bacteria Absent Absent Urine Squamous Epithelial Cell Present Absent Comp Metabolic Panel 01/27/2014 Sodium 140 mmol/L 133-145 Potassium 4.2 mmol/L 3.5-5.0 Chloride 107 mmol/L 101-111 Co2 Carbon Dioxide 30 mmol/L 22-32 Anion Gap 3 mmol/L 2-11 Glucose 86 mg/dL 70-100 Blood Urea Nitrogen 11 mg/dL 6-24 Creatinine 0.81 mg/dL 0.51-0.95 BUN/Creatinine Ratio 13.6 8-20 Calcium 9.6 mg/dL 8.6-10.3 Total Protein 7.0 g/dL 6.4-8.9 Albumin 3.9 g/dL 3.2-5.2 Globulin 3.1 g/dL 2-4 Albumin/Globulin Ratio 1.3 1-3 Total Bilirubin 0.40 mg/dL 0.2-1.0 Alkaline Phosphatase 130 U/L High 34-104 Alt 39 U/L 7-52 Ast 25 U/L 13-39 Egfr Non- 69.9 >60 Egfr 89.9 >60 53 Urine Culture And Sensitivities 01/20/2014 Urine Culture (SEE NOTE) 54 Urinalysis Profile 01/20/2014 Urine Color Straw Urine Appearance Clear Urine Specific [place] 1.005 Low 1.010-1.030 Urine pH 7.0 5-9 Urine Urobilinogen Negative Negative Urine Ketones Negative Negative Urine Protein Negative Negative Urine Leukocytes 2+ Negative Urine Blood 1+ Negative Urine Nitrite Negative Negative Urine Bilirubin Negative Negative Urine Glucose Negative Negative Urine White Blood Cell 1+(6-10/hpf) Absent Urine Red Blood Cell Trace Absent Urine Bacteria Absent Absent Urine Squamous Epithelial Cell Present Absent Comp Metabolic Panel 01/20/2014 Sodium 137 mmol/L 133-145 Potassium 3.9 mmol/L 3.5-5.0 55 Chloride 104 mmol/L 101-111 Co2 Carbon Dioxide 25 mmol/L 22-32 Anion Gap 8 mmol/L 2-11 Glucose 138 mg/dL High 70-100 Blood Urea Nitrogen 10 mg/dL 6-24 Creatinine 0.83 mg/dL 0.51-0.95 BUN/Creatinine Ratio 12.0 8-20 Calcium 9.5 mg/dL 8.6-10.3 Total Protein 6.7 g/dL 6.4-8.9 Albumin 4.0 g/dL 3.2-5.2 Globulin 2.7 g/dL 2-4 Albumin/Globulin Ratio 1.5 1-3 Total Bilirubin 1.10 mg/dL High 0.2-1.0 Alkaline Phosphatase 110 U/L High 34-104 Alt 76 U/L High 7-52 Ast 72 U/L High 13-39 Egfr Non- 68.0 >60 Egfr 87.4 >60 56 CBC Auto Diff 01/20/2014 White Blood Count 18.5 10^3/uL High 4.8-10.8 Red Blood Count 4.16 10^6/uL 4.0-5.4 Hemoglobin 12.7 g/dL 12.0-16.0 Hematocrit 38 % 35-47 Mean Corpuscular Volume 91 fL 80-97 Mean Corpuscular Hemoglobin 31 pg 27-31 Mean Corpuscular HGB Conc 34 g/dL 31-36 Red Cell Distribution Width 15 % 10.5-15 Platelet Count 342 10^3/uL 150-450 Mean Platelet Volume 8 um3 7.4-10.4 Abs Neutrophils 16.3 10^3/uL High 1.5-7.7 Abs Lymphocytes 1.1 10^3/uL 1.0-4.8 Abs Monocytes 0.7 10^3/uL 0-0.8 Abs Eosinophils 0.3 10^3/uL 0-0.6 Abs Basophils 0.1 10^3/uL 0-0.2 Abs Nucleated RBC 0.01 10^3/uL Granulocyte % 88.1 % High 38-83 Lymphocyte % 6.2 % Low 25-47 Monocyte % 3.7 % 1-9 Eosinophil % 1.5 % 0-6 Basophil % 0.5 % 0-2 Nucleated Red Blood Cells % 0 Laboratory test finding 01/20/2014 Blood Culture (SEE NOTE) 57 Urinalysis Profile 07/11/2013 Urine Color Yellow 58 Urine Appearance Clear 58 Urine Specific [place] 1.006 Low 1.010-1.030 58 Urine Esterase Negative Negative 58 Urine Nitrate Negative Negative 58 Urine Urobilinogen Negative E.U./dL Negative 58 Urine Protein Negative mg/dL Negative 58 Urine pH 7.0 5-9 58 Urine Blood Negative Negative 58 Urine Ketones Negative mg/dL Negative 58 Urine Bilirubin Negative Negative 58 Urine Glucose Negative mg/dL Negative 58 Lipid Profile (Trig/Chol/HDL) 07/10/2013 Triglycerides 87 mg/dL 59, 60 Cholesterol 154 mg/dL 59, 61 HDL Cholesterol 56.3 mg/dL 59, 62 LDL Cholesterol 80 mg/dL 59, 63 Comp Metabolic Panel 07/10/2013 Sodium 139 mmol/L 133-145 59 Potassium 3.8 mmol/L 3.7-5.6 59 Chloride 108 mmol/L 101-111 59 Co2 Carbon Dioxide 27 mmol/L 22-32 59 Anion Gap 4 mmol/L 2-11 59 Glucose 90 mg/dL 70-100 59 Blood Urea Nitrogen 14 mg/dL 6-24 59 Creatinine 0.81 mg/dL 0.51-0.95 59 BUN/Creatinine Ratio 17.3 8-20 59 Calcium 9.7 mg/dL 8.6-10.3 59 Total Protein 7.2 g/dL 6.4-8.9 59 Albumin 4.3 g/dL 3.2-5.2 59 Globulin 2.9 g/dL 2-4 59 Albumin/Globulin Ratio 1.5 1-3 59 Total Bilirubin 0.60 mg/dL 0.2-1.0 59 Alkaline Phosphatase 84 U/L 34-104 59 Alt 21 U/L 7-52 59 Ast 23 U/L 13-39 59 Egfr Non- 70.1 >60 59 Egfr 90.2 >60 59, 64 Laboratory test finding 07/10/2013 [place] 0.75 mmol/L 0.6-1.2 59 TSH (Thyroid Stimulating Horm) 0.76 IU/mL 0.34-5.60 59, 65 CBC Auto Diff 07/10/2013 White Blood Count 9.2 10^3/uL 4.8-10.8 59 Red Blood Count 4.20 10^6/uL 4.0-5.4 59 Hemoglobin 12.9 g/dL 12.0-16.0 59 Hematocrit 38 % 35-47 59 Mean Corpuscular Volume 91 fL 80-97 59 Mean Corpuscular Hemoglobin 31 pg 27-31 59 Mean Corpuscular HGB Conc 34 g/dL 31-36 59 Red Cell Distribution Width 13 % 10.5-15 59 Platelet Count 329 10^3/uL 150-450 59 Mean Platelet Volume 8 um3 7.4-10.4 59 Abs Neutrophils 7.4 10^3/uL 1.5-7.7 59 Abs Lymphocytes 1.1 10^3/uL 1.0-4.8 59 Abs Monocytes 0.4 10^3/uL 0-0.8 59 Abs Eosinophils 0.2 10^3/uL 0-0.6 59 Abs Basophils 0.1 10^3/uL 0-0.2 59 Abs Nucleated RBC 0 10^3/uL 59 Granulocyte % 80.6 % 38-83 59 Lymphocyte % 12.0 % Low 25-47 59 Monocyte % 4.6 % 1-9 59 Eosinophil % 2.2 % 0-6 59 Basophil % 0.6 % 0-2 59 Nucleated Red Blood Cells % 0 59 Hepatitis B [place] AB 07/10/2013 Hepatitis B Surface AB Nonreactive Nonreactive 59 Titer Hep B Surf AB Index 0.13 59, 66 Laboratory test finding 07/10/2013 Hepatitis C Antibody Nonreactive Nonreactive 59 Hepatitis B Core Total Ab Negative Negative 59, 67 Comp Metabolic Panel 12/28/2012 Sodium 141 mmol/L 133-145 Potassium 4.4 mmol/L 3.5-5.0 Chloride 108 mmol/L 101-111 Co2 Carbon Dioxide 27.0 mmol/L 22-32 Anion Gap 6.0 mmol/L 2-11 Glucose 97 mg/dL 70-100 Blood Urea Nitrogen 15 mg/dL 6-24 Creatinine 0.90 mg/dL 0.50-1.40 BUN/Creatinine Ratio 16.7 8-20 Calcium 9.9 mg/dL 8.1-9.9 Total Protein 6.7 g/dL 6.2-8.1 Albumin 4.2 g/dL 3.2-5.2 Globulin 2.5 g/dL 2-4 Albumin/Globulin Ratio 1.7 1-3 Total Bilirubin 0.7 mg/dL 0.4-1.5 Alkaline Phosphatase 86 U/L 30-110 Alt 21 U/L 14-54 Ast 26 U/L 12-42 Egfr Non- 62.1 >60 Egfr 79.8 >60 68 Laboratory test finding 12/28/2012 [place] 0.6 mmol/L 0.5-1.5 Urinalysis W/Microscopic 12/28/2012 Urine Color Yellow Urine Appearance Clear Urine Specific [place] 1.008 Low 1.010-1.030 Urine Esterase Trace Negative Urine Nitrate Negative Negative Urine Urobilinogen Negative E.U./dL Negative Urine Protein Negative mg/dL Negative Urine pH 7.0 5-9 Urine Blood Negative Negative Urine Ketones Negative mg/dL Negative Urine Bilirubin Negative Negative Urine Glucose Negative mg/dL Negative Urine WBC 1+ (<10 /hpf) None Seen Urine RBC 1+ (<3 /hpf) None Seen Urine Epithelial Cells 1+ Squamous /hpf None Seen Bacteria Urine None Seen None Seen Laboratory test finding 12/28/2012 TSH (Thyroid Stimulating 1.00 miu/mL 0.34-5.60 Horm) CBC Auto Diff 12/28/2012 White Blood Count 8.3 10^3/uL 4.8-10.8 Red Blood Count 4.50 10^6/uL 4.0-5.4 Hemoglobin 13.5 g/dL 12.0-16.0 Hematocrit 42 % 35-47 Mean Corpuscular Volume 93 fL 80-97 Mean Corpuscular Hemoglobin 30 pg 27-31 Mean Corpuscular HGB Conc 32 g/dL 31-36 Red Cell Distribution Width 14 % 10.5-15 Platelet Count 300 10^3/uL 150-450 Mean Platelet Volume 8 um3 7.4-10.4 Abs Neutrophils 6.3 10^3/uL 1.5-7.7 Abs Lymphocytes 1.2 10^3/uL 1.0-4.8 Abs Monocytes 0.4 10^3/uL 0-0.8 Abs Eosinophils 0.2 10^3/uL 0-0.6 Abs Basophils 0.1 10^3/uL 0-0.2 Abs Nucleated RBC 0.01 10^3/uL Granulocyte % 76.5 % 38-83 Lymphocyte % 14.4 % Low 25-47 Monocyte % 5.0 % 1-9 Eosinophil % 2.9 % 0-6 Basophil % 1.2 % 0-2 Nucleated Red Blood Cells % 0.1 Lipid Profile (Trig/Chol/HDL) 12/28/2012 Triglycerides 100 mg/dL 40-200 Cholesterol 193 mg/dL Less than 200 HDL Cholesterol 65 mg/dL High 40-60 69 Cholesterol/HDL Ratio 3.0 Average 1-4.44 LDL Cholesterol 108.0 High Less Than 100 70 Laboratory test finding 05/30/2012 Varicella-Zoster IgG Antibody Positive 71 Iron & Iron Binding 05/30/2012 Iron 75 g/dL 28-170 Capacity Unsaturated Iron Binding 407 g/dL Total Iron Binding Capacity 482 g/dL High 250-450 % Iron Saturation 16 % 15-55 CBC Auto Diff 05/30/2012 White Blood Count 8.3 10^3/uL 4.8-10.8 Red Blood Count 4.26 10^6/uL 4.0-5.4 Hemoglobin 13.2 g/dL 12.0-16.0 Hematocrit 40 % 35-47 Mean Corpuscular Volume 93 fL 80-97 Mean Corpuscular Hemoglobin 31 pg 27-31 Mean Corpuscular HGB Conc 34 g/dL 31-36 Red Cell Distribution Width 14 % 10.5-15 Platelet Count 297 10^3/uL 150-450 Mean Platelet Volume 8 um3 7.4-10.4 Abs Neutrophils 6.5 10^3/uL 1.5-7.7 Abs Lymphocytes 1.1 10^3/uL 1.0-4.8 Abs Monocytes 0.4 10^3/uL 0-0.8 Abs Eosinophils 0.3 10^3/uL 0-0.6 Abs Basophils 0 10^3/uL 0-0.2 Abs Nucleated RBC 0.01 10^3/uL Granulocyte % 77.9 % 38-83 Lymphocyte % 13.5 % Low 25-47 Monocyte % 4.5 % 1-9 Eosinophil % 3.5 % 0-6 Basophil % 0.6 % 0-2 Nucleated Red Blood Cells % 0.1 Laboratory test finding 05/30/2012 Ferritin 23 ng/mL 11-307 72 Basic Metabolic Panel 05/30/2012 Sodium 142 mmol/L 133-145 Potassium 4.5 mmol/L 3.5-5.0 Chloride 109 mmol/L 101-111 Co2 Carbon Dioxide 28.0 mmol/L 22-32 Anion Gap 5.0 mmol/L 2-11 Glucose 98 mg/dL 70-100 Blood Urea Nitrogen 15 mg/dL 6-24 Creatinine 0.70 mg/dL 0.50-1.40 BUN/Creatinine Ratio 21.4 High 8-20 Calcium 10.2 mg/dL High 8.1-9.9 Egfr Non- 83.2 >60 Egfr 107.0 >60 73 Laboratory test finding 05/30/2012 [place] 0.7 mmol/L 0.5-1.5 TSH (Thyroid Stimulating Horm) 0.54 miu/mL 0.34-5.60 74 Vitamin D, 25 Hydroxy 05/30/2012 25-Hydroxy Vitamin D2 <4.0 ng/mL 25-Hydroxy Vitamin D3 42 ng/mL 25-Hydroxy Vitamin D Total 42 ng/mL 75 CBC Auto Diff 11/21/2011 White Blood Count 6.1 10^3/uL 4.8-10.8 Red Blood Count 4.22 10^6/uL 4.0-5.4 Hemoglobin 13.6 g/dL 12.0-16.0 Hematocrit 39.6 % 35-47 Mean Corpuscular Volume 94 fL 80-97 Mean Corpuscular Hemoglobin 32 pg High 27-31 Mean Corpuscular HGB Conc 34 g/dL 31-36 Red Cell Distribution Width 13 % 10.5-15 Platelet Count 302 10^3/uL 150-450 Mean Platelet Volume 8 um3 7.4-10.4 Abs Neutrophils 4.3 10^3/uL 1.5-7.7 Abs Lymphocytes 1.1 10^3/uL 1.0-4.8 Abs Monocytes 0.3 10^3/uL 0-0.8 Abs Eosinophils 0.3 10^3/uL 0-0.6 Abs Basophils 0.1 10^3/uL 0-0.2 Abs Nucleated RBC 0 10^3/uL Granulocyte % 70.6 % 38-83 Lymphocyte % 18.4 % Low 25-47 Monocyte % 5.6 % 1-9 Eosinophil % 4.3 % 0-6 Basophil % 1.1 % 0-2 Nucleated Red Blood Cells % 0 Laboratory test finding 11/21/2011 TSH (Thyroid Stimulating 0.57 MIU/ML 0.34-5.60 Horm) Hemoglobin A1c 5.3 % Less than 6.0 76 [place] 0.6 mmol/L 0.5-1.5 Comp Metabolic Panel 11/21/2011 Sodium 142 mmol/L 133-145 Potassium 4.4 mmol/L 3.5-5.0 Chloride 108 mmol/L 101-111 Co2 Carbon Dioxide 29.0 mmol/L 22-32 Anion Gap 5.0 mmol/L 2-11 Glucose 98 mg/dL 70-100 Blood Urea Nitrogen 9 mg/dL 6-24 Creatinine 0.80 mg/dL 0.50-1.40 BUN/Creatinine Ratio 11.3 8-20 Calcium 9.9 mg/dL 8.1-9.9 Total Protein 6.5 GM/DL 6.2-8.1 Albumin 4.1 GM/DL 3.2-5.2 Globulin 2.4 GM/DL 2-4 Albumin/Globulin Ratio 1.7 1-3 Total Bilirubin 0.7 mg/dL 0.1-1.0 77 Alkaline Phosphatase 94 U/L 30-110 Alt 36 U/L 14-54 Ast 33 U/L 12-42 Egfr Non- 71.3 >60 Egfr 91.7 >60 78 Laboratory test finding 11/21/2011 Ferritin 30 NG/ML 11-307 Lipid Profile (Trig/Chol/HDL) 11/21/2011 Triglycerides 137 mg/dL 40-200 Cholesterol 190 mg/dL Less than 200 79 HDL Cholesterol 59 mg/dL 40-60 80 Cholesterol/HDL Ratio 3.2 AVERAGE 1-4.44 LDL Cholesterol 103.6 mg/dL High Less Than 100 CBC Auto Diff 07/27/2011 White Blood Count 7.0 CUMM 4.8-10.8 Red Cell Count 4.09 CUMM Low 4.2-5.4 Hemoglobin 13.4 g/dL 12.0-16.0 Hematocrit 38 % 35-47 Mean Corpuscular Volume 93 um3 79-97 Mean Corpuscular Hemoglob 33 pg High 27-31 Mean Corpuscular HGB [place] 35 g/dL 32-36 Redcell Distribution WDTH 14 % 10.5-15 Platelet Count 294 CUMM 150-450 Mean Platelet Volume 8.1 um3 7.4-10.4 Gran % 76.9 % 38-83 Lymph % 13.0 % Low 25-47 Mononuclear % 5.2 % 1-9 Eosinophil % 4.4 % 0-6 Basophil % 0.5 % 0-2 Abs Lymphs 0.9 Low 1.0-4.8 Abs Mononuclear 0.4 0-0.8 Absolute Neutrophil Count 5.4 1.5-7.7 Abs Eosinophils 0.3 0-0.6 Abs Basophils 0 0-0.2 81 Laboratory test finding 07/27/2011 Ferritin 28 NG/ML 11.0-307 Iron & Iron Binding Capacity 07/27/2011 Iron Total 97 g/dL 28-170 Total Iron Binding Capacity 421 g/dL 250-450 % Iron Saturation 23 % 15-55 Unsaturated Iron Binding 324 g/dL Laboratory test finding 04/25/2011 Ferritin 15 NG/ML 11.0-307 Iron & Iron Binding Capacity 04/25/2011 Iron Total 71 g/dL 28-170 Unsaturated Iron Binding 453 g/dL Total Iron Binding Capacity 524 g/dL High 250-450 % Iron Saturation 14 % Low 15-55 CBC Auto Diff 04/01/2011 White Blood Count 8.4 CUMM 4.8-10.8 Red Cell Count 4.06 CUMM Low 4.2-5.4 Hemoglobin 12.3 g/dL 12.0-16.0 Hematocrit 36 % 35-47 Mean Corpuscular Volume 88 um3 79-97 Mean Corpuscular Hemoglob 30 pg 27-31 Mean Corpuscular HGB [place] 34 g/dL 32-36 Redcell Distribution WDTH 14 % 10.5-15 Platelet Count 322 CUMM 150-450 Mean Platelet Volume 8.3 um3 7.4-10.4 Gran % 82.5 % 38-83 Lymph % 10.4 % Low 25-47 Mononuclear % 4.1 % 1-9 Eosinophil % 2.8 % 0-6 Basophil % 0.2 % 0-2 Abs Lymphs 0.9 Low 1.0-4.8 Abs Mononuclear 0.3 0-0.8 Absolute Neutrophil Count 6.9 1.5-7.7 Abs Eosinophils 0.2 0-0.6 Abs Basophils 0 0-0.2 82 Laboratory test 04/01/2011 Ferritin < 10 NG/ML Low 11.0-307 finding Surgical Pathology 03/22/2011 Surgical Pathology 83 <SEE NOTE> CBC Auto Diff 11/10/2010 White Blood Count 7.8 CUMM 4.8-10.8 Red Cell Count 4.19 CUMM Low 4.2-5.4 Hemoglobin 12.5 g/dL 12.0-16.0 Hematocrit 37 % 35-47 Mean Corpuscular Volume 89 um3 79-97 Mean Corpuscular Hemoglob 30 pg 27-31 Mean Corpuscular HGB [place] 34 g/dL 32-36 Redcell Distribution WDTH 15 % 10.5-15 Platelet Count 311 CUMM 150-450 Mean Platelet Volume 7.9 um3 7.4-10.4 Gran % 82.6 % 38-83 Lymph % 9.7 % Low 25-47 Mononuclear % 4.6 % 1-9 Eosinophil % 3.1 % 0-6 Basophil % 0 % 0-2 Abs Lymphs 0.8 Low 1.0-4.8 Abs Mononuclear 0.4 0-0.8 Absolute Neutrophil Count 6.4 1.5-7.7 Abs Eosinophils 0.2 0-0.6 Abs Basophils 0 0-0.2 84 Comp Metabolic Panel 11/10/2010 Sodium 143 mmol/L 135-145 Potassium 4.5 mmol/L 3.5-5.0 Chloride 108 mmol/L 101-111 Co2 (Carbon Dioxide) 31.0 mmol/L 22-32 Anion Gap 4.0 mmol/L 2-11 85 Glucose 113 mg/dL High 70-100 BUN 12 mg/dL 6-24 Creatinine 0.8 mg/dL 0.50-1.40 One Over Creatinine 1.25 BUN/Creatinine Ratio 15.0 8-20 Calcium 10.1 mg/dL High 8.1-9.9 Total Protein 7.0 GM/DL 6.2-8.1 Albumin 4.1 GM/DL 3.2-5.2 Globulin 2.9 GM/DL 2-4 Albumin/Globulin Ratio 1.4 1-3 Bilirubin Total 0.8 mg/dL 0.4-1.5 86 Alkaline Phosphatase 93 U/L 30-110 Alt (SGPT) 22 U/L 14-54 Ast (Sgot) 25 U/L 12-42 eGFR Non- 71.5 > 60 eGFR 92.0 > 60 87 Lipid Profile (Trig/Chol/HDL) 11/10/2010 Triglyceride 115 mg/dL 40-200 Cholesterol 179 mg/dL Less Than 200 88 High Density Lipoprotein 60 mg/dL 40-60 89 Cholesterol/HDL Ratio 2.98 AVERAGE 1-4.44 Low Density Lipoprotein 96 mg/dL Less Than 100 90 Laboratory test finding 11/10/2010 TSH 0.77 MIU/ML 0.34-5.60 [place] 0.8 mmol/L 0.5-1.5 Urinalysis W/Microscopic 11/10/2010 Ua Color YELLOW Yellow Appearance-Urine CLEAR Clear Specific [place] 1.004 Low 1.010-1.030 Esterase-Urine TRACE Negative Nitrite NEGATIVE Negative [id number] NEGATIVE Negative Protein-Urine NEGATIVE Negative PH-Urine 7.5 5-9 Blood-Urine NEGATIVE Negative Ketones-Urine NEGATIVE Negative Bilirubin-Ur NEGATIVE Negative Glucose-Urine NEGATIVE Negative WBC-Urine 0-2 0-5 RBC-Urine 0-2 0-2 Epith Cells-Ur MANY None Liver Function Panel 01/07/2010 Total Protein 6.5 GM/DL 6.2-8.1 Albumin 4.1 GM/DL 3.2-5.2 Globulin 2.4 GM/DL 2-4 Albumin/Globulin Ratio 1.7 1-3 Bilirubin Total 0.7 mg/dL 0.4-1.5 91 Bilirubin Direct 0.1 mg/dL 0.1-0.5 Indirect Bilirubin 0.6 mg/dL 0.3-1.0 92 Alkaline Phosphatase 90 U/L 30-110 Alt (SGPT) 22 U/L 14-54 Ast (Sgot) 25 U/L 12-42 Lipid Profile (Trig/Chol/HDL) 12/04/2009 Triglyceride 129 mg/dL 40-200 59 Cholesterol 184 mg/dL Less Than 200 59, 93 High Density Lipoprotein 59 mg/dL 40-60 59, 94 Cholesterol/HDL Ratio 3.12 AVERAGE 1-4.44 59 Low Density Lipoprotein 99 mg/dL Less Than 100 59, 95 Laboratory test finding 12/04/2009 Alt (SGPT) 20 U/L 14-54 59 Ast (Sgot) 54 U/L High 12-42 59 Comp Metabolic Panel 10/21/2009 Sodium 142 mmol/L 135-145 Potassium 4.7 mmol/L 3.5-5.0 Chloride 106 mmol/L 101-111 Co2 (Carbon Dioxide) 30.0 mmol/L 22-32 Anion Gap 6.0 mmol/L 2-11 96 Glucose 94 mg/dL 70-100 97 BUN 14 mg/dL 6-24 Creatinine 0.90 mg/dL 0.50-1.40 One Over Creatinine 1.10 BUN/Creatinine Ratio 15.6 8-20 Calcium 9.9 mg/dL 8.1-9.9 98 Total Protein 6.9 GM/DL 6.2-8.1 Albumin 4.0 GM/DL 3.2-5.2 Globulin 2.9 GM/DL 2-4 Albumin/Globulin Ratio 1.4 1-3 Bilirubin Total 0.7 mg/dL 0.4-1.5 99 Alkaline Phosphatase 85 U/L 30-110 Alt (SGPT) 28 U/L 14-54 Ast (Sgot) 27 U/L 12-42 eGFR Non- 66.6 > 60 eGFR 80.6 > 60 100 Lipid Profile (Trig/Chol/HDL) 10/21/2009 Triglyceride 109 mg/dL 40-200 Cholesterol 205 mg/dL High Less Than 200 101 High Density Lipoprotein 47 mg/dL 40-60 102 Cholesterol/HDL Ratio 4.36 AVERAGE 1-4.44 Low Density Lipoprotein 136 mg/dL High Less Than 100 103 Laboratory test finding 10/21/2009 TSH 1.09 MIU/ML 0.34-5.60 [place] 0.8 mmol/L 0.5-1.5 Urinalysis W/Microscopic 10/16/2009 Ua Color YELLOW Yellow Appearance-Urine CLEAR Clear Specific [place]-Ur 1.005 Low 1.010-1.030 Esterase-Urine 1+ Negative Nitrite NEGATIVE Negative [id number] NEGATIVE Negative Protein-Urine NEGATIVE Negative PH-Urine 6.5 5-9 Blood-Urine NEGATIVE Negative Ketones-Urine NEGATIVE Negative Bilirubin-Ur NEGATIVE Negative Glucose-Urine NEGATIVE Negative WBC-Urine 5-10 0-5 RBC-Urine 0-5 0-2 Epith Cells-Ur RARE None Bacteria-Urine TRACE None Amorphous Sed-U TRACE None Urine Culture & Sensitivi 10/16/2009 Urine Culture Sensitivi NG 104 1 SEE RESULT BELOW Name: CARLENE MONDRAGON Mo : [address]: Elif Luevano MD Acct: [id number] Unit: [id number] AGE: 71 Location: [facility] Re03/24/17 SEX: F Status: REG REF SPEC: [id number] JOAQUINA: 03/24/[address] [facility] [address]: Elif Luveano MD REQ: [id number] RECD: 03/24/17 STATUS: COMP _ SOURCE: URINE SPDESC: ORDERED: Urine Culture Procedure Result Reported Site Urine Culture Final 03/25/17- 1230 ML No Growth (<1,000 CFU/mL) * ML - MAIN LAB ([facility]) . END OF REPORT * ML=Testing performed at Main Lab DEPARTMENT OF PATHOLOGY, [address] [place] [address] Jimbo Pratt M.D. Director [facility] # [id number] 2 Because ethnic data is not always readily available, this report includes an eGFR for both -Americans and non- Americans. The National Kidney Disease Education Program (NKDEP) does not endorse the use of the MDRD equation for patients that are not between the ages of 18 and 70, are , have extremes of body size, muscle mass, or nutritional status, or are non- or non-. According to the National Kidney Foundation, irrespective of diagnosis, the stage of the disease is based on the level of kidney function: Stage Description GFR(mL/min/1.73 m(2)) 1 Kidney damage with normal or decreased GFR 90 2 Kidney damage with mild decrease in GFR 60-89 3 Moderate decrease in GFR 30-59 4 Severe decrease in GFR 15-29 5 Kidney failure <15 (or dialysis) 3 Desirable: <150 Borderline High: 150-199 High: 200-499 Very High: >500 4 Desirable: <200 Borderline High: 200-239 High: >239 5 Low: <40 Desirable: 40-60 High: >60 6 Desirable: <100 Near Optimal: 100-129 Borderline High: 130-159 High: 160-189 Very High: >189 7 Because ethnic data is not always readily available, this report includes an eGFR for both -Americans and non- Americans. The National Kidney Disease Education Program (NKDEP) does not endorse the use of the MDRD equation for patients that are not between the ages of 18 and 70, are , have extremes of body size, muscle mass, or nutritional status, or are non- or non-. According to the National Kidney Foundation, irrespective of diagnosis, the stage of the disease is based on the level of kidney function: Stage Description GFR(mL/min/1.73 m(2)) 1 Kidney damage with normal or decreased GFR 90 2 Kidney damage with mild decrease in GFR 60-89 3 Moderate decrease in GFR 30-59 4 Severe decrease in GFR 15-29 5 Kidney failure <15 (or dialysis) 8 FASTING 10 HOUR 9 FASTING 10 HOUR 10 ADDITIONAL INFORMATION This test has been modified from the city distribution clerk's instructions. Its performance characteristics were determined by [facility] in a manner consistent with CLIA requirements. This test has not been cleared or approved by the U.S. Food and Drug Administration. Test Performed by: [facility] - [address] [address] 11 Test Performed by: [facility] - [address] [address] 12 ADDITIONAL INFORMATION This test has been modified from the city distribution clerk's instructions. Its performance characteristics were determined by [facility] in a manner consistent with CLIA requirements. This test has not been cleared or approved by the U.S. Food and Drug Administration. Test Performed by: [facility] - [address] [address] 13 ADDITIONAL INFORMATION This test was developed and its performance characteristics determined by [facility] in a manner consistent with CLIA requirements. This test has not been cleared or approved by the U.S. Food and Drug Administration. 14 Test Performed by: [facility] - [address] [address] 15 Test Performed by: [facility] - [address] [address] 16 Test Performed by: [facility] - [address] [address] 17 REFERENCE VALUE 10.3 - 12.8 18 IMPRESSION: 1) Data are diagnostic of presence of a lupus anticoagulant (LAC), identified by both activated partial thromboplastin time (APTT) and dilute Austen viper venom time (DRVVT) methodologies in the overall data context. 2) See comments, suggest clinical correlation, and if indicated consider follow-up LAC profile testing to evaluate for persisting abnormalities at or beyond three months' interval, preferably in the absence of anticoagulation therapy effects (warfarin, heparin, direct-acting anticoagulants) if feasible, since anticoagulation therapy can interfere with LAC detection or exclusion including potential for causing false-positive LAC test results. 3) If additional antiphospholipid antibody evaluation is indicated, consider obtaining serologic testing for IgG and IgM anticardiolipin antibodies and/or antibodies to beta-2 glycoprotein I. COMMENTS: Mixing study of the prolonged activated partial thromboplastin time (APTT 49 sec; normal 26-36 sec) demonstrates inhibition (1:1 mix APTT 43 sec). The platelet neutralization procedure (PNP) significantly shortens the APTT (PNP-APTT 43 sec), relative to the prolonged baseline APTT, and the PNP buffer control APTT does not similarly shorten. Altogether, the APTT-PNP test results are diagnostic of lupus anticoagulant (LAC) by this methodology in the overall data context. Mixing study of the prolonged dilute Austen viper venom time (DRVVT screen ratio 2.0) demonstrates inhibition (DRVVT mix ratio 1.7), and additional phospholipid significantly shortens the DRVVT (confirmatory ratio 1.9), altogether diagnostic of LAC by this methodology in the overall data context. The normal prothrombin time (PT) and thrombin time (TT) provide no evidence of warfarin, heparin, or direct-acting anticoagulant therapy effects, and also suggest normally functioning extrinsic and common procoagulant pathways within assay sensitivities. 19 Arlin Kuo M.D. Test Performed by: [facility] - [address] [address] 20 ADDITIONAL INFORMATION This test has been modified from the city distribution clerk's instructions. Its performance characteristics were determined by [facility] in a manner consistent with CLIA requirements. This test has not been cleared or approved by the U.S. Food and Drug Administration. 21 ADDITIONAL INFORMATION This test has been modified from the city distribution clerk's instructions. Its performance characteristics were determined by [facility] in a manner consistent with CLIA requirements. This test has not been cleared or approved by the U.S. Food and Drug Administration. 22 ADDITIONAL INFORMATION This test has been modified from the city distribution clerk's instructions. Its performance characteristics were determined by [facility] in a manner consistent with CLIA requirements. This test has not been cleared or approved by the U.S. Food and Drug Administration. 23 No laboratory evidence of von Willebrand's disease based on normal results of factor VIII activity, von Willebrand factor activity, and von Willebrand factor antigen. Note: von Willebrand factor antigen and activity and/or factor VIII may be increased above baseline levels by acute or chronic inflammation, stress or adrenergic stimuli, or estrogen and oral contraceptive therapy, or liver disease. Recent administration of desmopressin or von Willebrand factor concentrate may mask the diagnosis of von Willebrand's disease. Suggest clinical correlation. Interpretation not reviewed by physician. Test Performed by: [address] [address] 24 PT is 11.0. 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 With incubation, PTT does not entirely correct (39.6), raising the possibility of a factor inhibitor. Reviewed by: Sapphire Mora MD 25 >100 to <200 pg/mL: likely compensated congestive heart failure (CHF) 200 to 400 pg/mL: likely moderate CHF >400 pg/mL: likely moderate to severe CHF 26 [facility] Severe Sepsis and Septic Shock Management Bundle Measure requires all lactic acids initially measuring >2.0 mmol/L be repeated. 27 SEE RESULT BELOW Name: CARLENE MONDRAGON : [address]: Vinay Chen MD Acct: [id number] Unit: [id number] AGE: 70 Location: ED Re06/09/16 SEX: F Status: DEP ER SPEC: [id number] JOAQUINA: 06/09/[address] [facility] [address]: Vinay Chen MD REQ: [id number] RECD: 06/09/16 STATUS: TANG METCALF DR: Elif Luevano MD _ SOURCE: URINE SPDESC: ORDERED: Urine Culture Procedure Result Reported Site Urine Culture Final 06/10/16- 1614 ML No growth of clinically significant organisms * ML - MAIN LAB ([facility]) . END OF REPORT * ML=Testing performed at Main Lab DEPARTMENT OF PATHOLOGY, [address] [place] [address] Jimbo Pratt M.D. Director [facility] # [id number] Acute inflammation: >10.00 29 99th percentile=0.04 ng/mL Troponin results at [facility] and [facility] are not interchangeable. 30 Because ethnic data is not always readily available, this report includes an eGFR for both -Americans and non- Americans. The National Kidney Disease Education Program (NKDEP) does not endorse the use of the MDRD equation for patients that are not between the ages of 18 and 70, are , have extremes of body size, muscle mass, or nutritional status, or are non- or non-. According to the National Kidney Foundation, irrespective of diagnosis, the stage of the disease is based on the level of kidney function: Stage Description GFR(mL/min/1.73 m(2)) 1 Kidney damage with normal or decreased GFR 90 2 Kidney damage with mild decrease in GFR 60-89 3 Moderate decrease in GFR 30-59 4 Severe decrease in GFR 15-29 5 Kidney failure <15 (or dialysis) 31 Because ethnic data is not always readily available, this report includes an eGFR for both -Americans and non- Americans. The National Kidney Disease Education Program (NKDEP) does not endorse the use of the MDRD equation for patients that are not between the ages of 18 and 70, are , have extremes of body size, muscle mass, or nutritional status, or are non- or non-. According to the National Kidney Foundation, irrespective of diagnosis, the stage of the disease is based on the level of kidney function: Stage Description GFR(mL/min/1.73 m(2)) 1 Kidney damage with normal or decreased GFR 90 2 Kidney damage with mild decrease in GFR 60-89 3 Moderate decrease in GFR 30-59 4 Severe decrease in GFR 15-29 5 Kidney failure <15 (or dialysis) 32 Desirable <150 Borderline high 150-199 High 200-499 Very High >500 33 Desirable <200 Borderline high 200-239 High >239 34 Low <40 Desirable: 40-60 High: >60 35 Desirable: <100 mg/dL Near Optimal: 100-129 mg/dL Borderline High: 130-159 mg/dL High: 160-189 mg/dL Very High: >189 mg/dL 36 Because ethnic data is not always readily available, this report includes an eGFR for both -Americans and non- Americans. The National Kidney Disease Education Program (NKDEP) does not endorse the use of the MDRD equation for patients that are not between the ages of 18 and 70, are , have extremes of body size, muscle mass, or nutritional status, or are non- or non-. According to the National Kidney Foundation, irrespective of diagnosis, the stage of the disease is based on the level of kidney function: Stage Description GFR(mL/min/1.73 m(2)) 1 Kidney damage with normal or decreased GFR 90 2 Kidney damage with mild decrease in GFR 60-89 3 Moderate decrease in GFR 30-59 4 Severe decrease in GFR 15-29 5 Kidney failure <15 (or dialysis) 37 DUE IN December DUE IN December Because ethnic data is not always readily available, this report includes an eGFR for both -Americans and non- Americans. The National Kidney Disease Education Program (NKDEP) does not endorse the use of the MDRD equation for patients that are not between the ages of 18 and 70, are , have extremes of body size, muscle mass, or nutritional status, or are non- or non-. According to the National Kidney Foundation, irrespective of diagnosis, the stage of the disease is based on the level of kidney function: Stage Description GFR(mL/min/1.73 m(2)) 1 Kidney damage with normal or decreased GFR 90 2 Kidney damage with mild decrease in GFR 60-89 3 Moderate decrease in GFR 30-59 4 Severe decrease in GFR 15-29 5 Kidney failure <15 (or dialysis) 40 FASTING 10 HOUR DUE IN June Because ethnic data is not always readily available, this report includes an eGFR for both -Americans and non- Americans. The National Kidney Disease Education Program (NKDEP) does not endorse the use of the MDRD equation for patients that are not between the ages of 18 and 70, are , have extremes of body size, muscle mass, or nutritional status, or are non- or non-. According to the National Kidney Foundation, irrespective of diagnosis, the stage of the disease is based on the level of kidney function: Stage Description GFR(mL/min/1.73 m(2)) 1 Kidney damage with normal or decreased GFR 90 2 Kidney damage with mild decrease in GFR 60-89 3 Moderate decrease in GFR 30-59 4 Severe decrease in GFR 15-29 5 Kidney failure <15 (or dialysis) 42 Desirable <150 Borderline high 150-199 High 200-499 Very High >500 43 Desirable <200 Borderline high 200-239 High >239 44 Low <40 Desirable: 40-60 High: >60 45 Desirable: <100 mg/dL Near Optimal: 100-129 mg/dL Borderline High: 130-159 mg/dL High: 160-189 mg/dL Very High: >189 mg/dL 46 Test Performed by: [address] [address] Draw Bench Operator: Vinay Bojorquez II, M.D., Ph.D. 47 RUN DATE: 06/26/14 [facility] LAB LIVE PAGE 1 RUN TIME: 164[address], [place] [address] Specimen Inquiry Name: GIANCARLOCARLENE L : [address]: Elif Luevano MD Acct: [id number] Unit: [id number] AGE: 68 Location: LAB Re06/24/14 SEX: F Status: REG REF SPEC: [id number] JOAQUINA: 06/24/14-[address]: Elif Luevano MD REQ: [id number] RECD: 06/24/14 STATUS: COMP _ SOURCE: URINE SPDESC: ORDERED: Urine Culture QUERIES: Provider Requisition # [id number] Procedure Result Verified Site Urine Culture Final 06/26/14- 1641 ML Organism 1 NORMAL TITO [place] Count 10-25,000 (Moderate) CFU/ML * ML - MAIN LAB ([facility]) . END OF REPORT * ML=Testing performed at Main Lab DEPARTMENT OF PATHOLOGY, [address] [place] [address] Jimbo Pratt M.D. Director [facility] # [id number] 48 Desirable <150 Borderline high 150-199 High 200-499 Very High >500 49 Desirable <200 Borderline high 200-239 High >239 50 Low <40 Desirable: 40-60 High: >60 51 Desirable: <100 mg/dL Near Optimal: 100-129 mg/dL Borderline High: 130-159 mg/dL High: 160-189 mg/dL Very High: >189 mg/dL 52 Because ethnic data is not always readily available, this report includes an eGFR for both -Americans and non- Americans. The National Kidney Disease Education Program (NKDEP) does not endorse the use of the MDRD equation for patients that are not between the ages of 18 and 70, are , have extremes of body size, muscle mass, or nutritional status, or are non- or non-. According to the National Kidney Foundation, irrespective of diagnosis, the stage of the disease is based on the level of kidney function: Stage Description GFR(mL/min/1.73 m(2)) 1 Kidney damage with normal or decreased GFR 90 2 Kidney damage with mild decrease in GFR 60-89 3 Moderate decrease in GFR 30-59 4 Severe decrease in GFR 15-29 5 Kidney failure <15 (or dialysis) 53 Because ethnic data is not always readily available, this report includes an eGFR for both -Americans and non- Americans. The National Kidney Disease Education Program (NKDEP) does not endorse the use of the MDRD equation for patients that are not between the ages of 18 and 70, are , have extremes of body size, muscle mass, or nutritional status, or are non- or non-. According to the National Kidney Foundation, irrespective of diagnosis, the stage of the disease is based on the level of kidney function: Stage Description GFR(mL/min/1.73 m(2)) 1 Kidney damage with normal or decreased GFR 90 2 Kidney damage with mild decrease in GFR 60-89 3 Moderate decrease in GFR 30-59 4 Severe decrease in GFR 15-29 5 Kidney failure <15 (or dialysis) 54 RUN DATE: 01/22/14 [facility] LAB LIVE PAGE 1 RUN TIME: [address] [place] [id number] Specimen Inquiry Name: CARLENE MONDRAGON : [address]: Filiberto Kc NP Acct: [id number] Unit: [id number] AGE: 68 Location: [facility] Re01/20/14 SEX: F Status: REG REF SPEC: [id number] JOAQUINA: 01/20/[address] [facility] [address]: Filiberto Kc NP REQ: [id number] RECD: 01/20/14 STATUS: TANG METCALF DR: Elif Tijerina MD _ SOURCE: URINE SPDESC: ORDERED: Urine Culture QUERIES: Medent Number [id number] Procedure Result Verified Site Urine Culture Final 01/22/14- 0913 ML Organism 1 NORMAL TITO [place] Count 25-50,000 (Moderate) CFU/ML END OF REPORT * ML=Testing performed at Main Lab DEPARTMENT OF PATHOLOGY, [address] [place] [address] Jimbo Pratt M.D. Director [facility] # [id number] 55 Potassium reference range changed effective 12/22/13 56 Because ethnic data is not always readily available, this report includes an eGFR for both -Americans and non- Americans. The National Kidney Disease Education Program (NKDEP) does not endorse the use of the MDRD equation for patients that are not between the ages of 18 and 70, are , have extremes of body size, muscle mass, or nutritional status, or are non- or non-. According to the National Kidney Foundation, irrespective of diagnosis, the stage of the disease is based on the level of kidney function: Stage Description GFR(mL/min/1.73 m(2)) 1 Kidney damage with normal or decreased GFR 90 2 Kidney damage with mild decrease in GFR 60-89 3 Moderate decrease in GFR 30-59 4 Severe decrease in GFR 15-29 5 Kidney failure <15 (or dialysis) 57 RUN DATE: 01/25/14 [facility] LAB LIVE PAGE 1 RUN TIME: [address] [place] [address] Specimen Inquiry Name: CARLENE MONDRAGON : [address]: Filiberto Kc STUDIO COORDINATOR Acct: [id number] Unit: [id number] AGE: 68 Location: [facility] Re01/20/14 SEX: F Status: REG REF SPEC: [id number] JOAQUINA: 01/20/14-[address] [facility] [address]: Filiberto Kc STUDIO COORDINATOR REQ: [id number] RECD: 01/20/14 STATUS: TANG METCALF DR: Elif Tijerina MD _ SOURCE: [facility]LO[facility]: ORDERED: Blood Cult QUERIES: Medent Number [id number] Procedure Result Verified Site Aerobic Culture Bottle Final 01/25/14- 1450 ML No Growth Day 5 Anaerobic Culture Bottle Final 01/25/14- 1450 ML No Growth Day 5 END OF REPORT * ML=Testing performed at Main Lab DEPARTMENT OF PATHOLOGY, [address] [place] [address] Jimbo Pratt M.D. Director [facility] # [id number] 58 WITH MICROSCOPIC 59 FASTING 60 Desirable <150 Borderline high 150-199 High 200-499 Very High >500 61 Desirable <200 Borderline high 200-239 High >239 62 Low <40 Desirable: 40-60 High: >60 63 Desirable <100 Near Optimal 100-129 Borderline high 130-159 High 160-189 Very High >189 64 Because ethnic data is not always readily available, this report includes an eGFR for both -Americans and non- Americans. The National Kidney Disease Education Program (NKDEP) does not endorse the use of the MDRD equation for patients that are not between the ages of 18 and 70, are , have extremes of body size, muscle mass, or nutritional status, or are non- or non-. According to the National Kidney Foundation, irrespective of diagnosis, the stage of the disease is based on the level of kidney function: Stage Description GFR(mL/min/1.73 m(2)) 1 Kidney damage with normal or decreased GFR 90 2 Kidney damage with mild decrease in GFR 60-89 3 Moderate decrease in GFR 30-59 4 Severe decrease in GFR 15-29 5 Kidney failure <15 (or dialysis) 65 FASTING 66 The World Health Organization (WHO) Hepatitis B Immunoglobulin 1st International Reference Preparation (1976): The accepted criteria for immunity to HBV is anti-HBs activity greater than or equal to 10 mIU/mL. An Index Value of 1.00 is equivalent to 10 mIU/mL. Samples with an Index Value of 1.00 or greater are considered reactive (protective) in accordance with the CDC guidelines. 67 Test Performed by: [place] [address] Draw Bench Operator: Austin Vega III, M.D. 68 Because ethnic data is not always readily available, this report includes an eGFR for both -Americans and non- Americans. The National Kidney Disease Education Program (NKDEP) does not endorse the use of the MDRD equation for patients that are not between the ages of 18 and 70, are , have extremes of body size, muscle mass, or nutritional status, or are non- or non-. According to the National Kidney Foundation, irrespective of diagnosis, the stage of the disease is based on the level of kidney function: Stage Description GFR(mL/min/1.73 m(2)) 1 Kidney damage with normal or decreased GFR 90 2 Kidney damage with mild decrease in GFR 60-89 3 Moderate decrease in GFR 30-59 4 Severe decrease in GFR 15-29 5 Kidney failure <15 (or dialysis) 69 HDL Interpretation: Undesirable: High Risk: Less than 40 mg/dL Desirable: Low Risk: Greater than 60 mg/dL 70 LDL Interpretation: Low Risk Optimal Level: LDL Less than 100 mg/dL Near or Above Optimal: LDL 100-129 mg/dL Borderline High Risk: LDL 130-159 mg/dL High Risk: LDL 160-189 mg/dL Very High Risk: LDL Greater than 189 mg/dL 71 -- REFERENCE VALUE -- Negative Test Performed by: [address] [address] Draw Bench Operator: Austin Vega III, M.D. 72 FASTING 73 Because ethnic data is not always readily available, this report includes an eGFR for both -Americans and non- Americans. The National Kidney Disease Education Program (NKDEP) does not endorse the use of the MDRD equation for patients that are not between the ages of 18 and 70, are , have extremes of body size, muscle mass, or nutritional status, or are non- or non-. According to the National Kidney Foundation, irrespective of diagnosis, the stage of the disease is based on the level of kidney function: Stage Description GFR(mL/min/1.73 m(2)) 1 Kidney damage with normal or decreased GFR 90 2 Kidney damage with mild decrease in GFR 60-89 3 Moderate decrease in GFR 30-59 4 Severe decrease in GFR 15-29 5 Kidney failure <15 (or dialysis) 74 FASTING 75 -- REFERENCE VALUE -- 25-HYDROXY D TOTAL (D2+D3) Optimum levels in the normal population are 25-80 Test Performed by: [address] [address] Draw Bench Operator: Austin Vega III, M.D. 76 Therapeutic target for the treatment of diabetes Mellitus patients is <7% HBA1C, and in selective patients <6.0%.Please refer to [place] [employer] Diabetic care guidelines for further information. 77 A metabolite of Naproxen, O-desmethylnaproxen, has been shown to interfere with the [place] method for measuring total bilirubin. Samples from patients who have taken Naproxen have shown spurious elevation in total bilirubin levels. 78 Because ethnic data is not always readily available, this report includes an eGFR for both -Americans and non- Americans. The National Kidney Disease Education Program (NKDEP) does not endorse the use of the MDRD equation for patients that are not between the ages of 18 and 70, are , have extremes of body size, muscle mass, or nutritional status, or are non- or non-. According to the National Kidney Foundation, irrespective of diagnosis, the stage of the disease is based on the level of kidney function: Stage Description GFR(mL/min/1.73 m(2)) 1 Kidney damage with normal or decreased GFR 90 2 Kidney damage with mild decrease in GFR 60-89 3 Moderate decrease in GFR 30-59 4 Severe decrease in GFR 15-29 5 Kidney failure <15 (or dialysis) 79 Desirable: Less than 200 MG/DL Borderline-High Risk: 200-239 MG/DL High-Risk: 240 MG/DL and over 80 HDL Interpretation: Undesirable: High Risk: Less than 40 MG/DL Desirable: Low Risk: Greater than 60 MG/DL 81 Lymphopenia % 82 Neutrophilia % Lymphopenia % 83 ---- RUN DATE: 03/24/11 [facility] NMI LIVE PAGE 1 RUN TIME: 1239 Specimen Inquiry RUN USER: INTERFACE -- Name: CARLENE MONDRAGON#: [id number] Status: REG REF Re03/22/11 Age/Sex: 65/F Unit#: [id number] [facility] -- Specimen: [id number] SOUT Spec Date: 03/22/[address]: Paulo sevilla MD Spec Type: SURGICAL P Received: 03/23/11-1502 Copies to: Elif larsen MD SPECIMEN 1) HEPATIC FLEXURE BIOPSY 2) PROXIMAL TRRANSVERSE BIOPSY HISTORY POST-OP DIAGNOSIS: Colonoscopy to cecum. Colon polyps. CLINICAL INFORMATION: Heme positive stool. No bowel issue. GROSS DESCRIPTION 1) The specimen is received in formalin labelled Carlene L. Acor, Hepatic Flexure Biopsy, and consists of two garcia soft tissue fragments measuring 0.8 x 0.2 x 0.2 cm. Submitted entirely, one cassette. 2) The specimen is received in formalin labelled Carlene L. Acor, Proximal Transverse Biopsy, and consists of a garcia soft tissue fragment measuring 0.3 x 0.2 x 0.2 cm. Submitted entirely, one cassette. DIAGNOSIS 1) Colon, hepatic flexure, biopsy: A. Tubular adenoma. B. No high grade dysplasia or malignancy. 2) Colon, proximal transverse, biopsy: A. Tubular adenoma. B. No high grade dysplasia or malignancy. Signed Electronically by: JIMBO PRATT MD 03/24/11 1237 -- -- DEPARTMENT OF PATHOLOGY, [address] [place] [address] [facility] Permit #[id number] Jimbo Pratt M.D. Director Jonna Song M.D. [employer]bestos Pipe Supervisor Dir wagner -- 84 Neutrophilia % Lymphopenia % 85 Anion gap measurement may be of limited value in the presence of any alkalosis, especially in a combined acid base disorder. . 86 A metabolite of Naproxen, O-desmethylnaproxen, has been shown to interfere with the Jendrassik-[place] method for measuring total bilirubin. Samples from patients who have taken Naproxen have shown spurious elevation in total bilirubin levels. 87 Because ethnic data is not always readily available, this report includes an eGFR for both -Americans and non- Americans. The National Kidney Disease Education Program (NKDEP) does not endorse the use of the MDRD equation for patients that are not between the ages of 18 and 70, are , have extremes of body size, muscle mass, or nutritional status, or are non- or non-. According to the National Kidney Foundation, irrespective of diagnosis, the stage of the disease is based on the level of kidney function: Stage Description GFR(mL/min/1.73 m(2)) 1 Kidney damage with normal or decreased GFR 90 2 Kidney damage with mild decrease in GFR 60-89 3 Moderate decrease in GFR 30-59 4 Severe decrease in GFR 15-29 5 Kidney failure <15 (or dialysis) 88 CHOLESTEROL INTERPRETATION: Desirable: Less than 200 MG/DL Borderline-High Risk: 200-239 MG/DL High-Risk: 240 MG/DL and over 89 HDL INTERPRETATION: Undesirable: High Risk: Less than 40 MG/DL Desirable: Low Risk: Greater than 60 MG/DL 90 LDL INTERPRETATION: Low Risk Optimal Level: LDL Less than 100 MG/DL Near or Above Optimal: LDL 100-129 MG/DL Borderline High Risk: LDL 130-159 MG/DL High Risk: LDL 160-189 MG/DL Very High Risk: LDL Greater than 189 MG/DL 91 A metabolite of Naproxen, O-desmethylnaproxen, has been shown to interfere with the Jendrassik-[place] method for measuring total bilirubin. Samples from patients who have taken Naproxen have shown spurious elevation in total bilirubin levels. 92 Please note updated reference range, effective 09/10/09 93 CHOLESTEROL INTERPRETATION: Desirable: Less than 200 MG/DL Borderline-High Risk: 200-239 MG/DL High-Risk: 240 MG/DL and over 94 HDL INTERPRETATION: Undesirable: High Risk: Less than 40 MG/DL Desirable: Low Risk: Greater than 60 MG/DL 95 LDL INTERPRETATION: Low Risk Optimal Level: LDL Less than 100 MG/DL Near or Above Optimal: LDL 100-129 MG/DL Borderline High Risk: LDL 130-159 MG/DL High Risk: LDL 160-189 MG/DL Very High Risk: LDL Greater than 189 MG/DL 96 Anion gap measurement may be of limited value in the presence of any alkalosis, especially in a combined acid base disorder. . 97 Note change in reference range as of 10/11/07. The change was based on recommendations from the [place] [employer]. 98 Please note change in reference range effective 07 . 99 A metabolite of Naproxen, O-desmethylnaproxen, has been shown to interfere with the Jendrassik-[place] method for measuring total bilirubin. Samples from patients who have taken Naproxen have shown spurious elevation in total bilirubin levels. 10 Because ethnic data is not always readily available, 0 this report includes an eGFR for both -Americans and non- Americans. The National Kidney Disease Education Program (NKDEP) does not endorse the use of the MDRD equation for patients that are not between the ages of 18 and 70, are , have extremes of body size, muscle mass, or nutritional status, or are non- or non-. According to the National Kidney Foundation, irrespective of diagnosis, the stage of the disease is based on the level of kidney function: Stage Description GFR(mL/min/1.73 m(2)) 1 Kidney damage with normal or decreased GFR 90 2 Kidney damage with mild decrease in GFR 60-89 3 Moderate decrease in GFR 30-59 4 Severe decrease in GFR 15-29 5 Kidney failure <15 (or dialysis) 10 CHOLESTEROL INTERPRETATION: 1 Desirable: Less than 200 MG/DL Borderline-High Risk: 200-239 MG/DL High-Risk: 240 MG/DL and over 10 HDL INTERPRETATION: 2 Undesirable: High Risk: Less than 40 MG/DL Desirable: Low Risk: Greater than 60 MG/DL 10 LDL INTERPRETATION: 3 Low Risk Optimal Level: LDL Less than 100 MG/DL Near or Above Optimal: LDL 100-129 MG/DL Borderline High Risk: LDL 130-159 MG/DL High Risk: LDL 160-189 MG/DL Very High Risk: LDL Greater than 189 MG/DL 10 FINAL: NO GROWTH DAY 2 (<1,000 CFU/mL) 4 Procedures Date CPT Code Description Status 12/23/2016 30380 EKG Tracing & Interpretation Completed 07/05/2016 Colonoscopy Completed 07/08/2015 Mammogram Completed 02/19/2015 31469 Repair Hernia Umbilical > 5 Yrs, Reducible Completed 02/02/2015 47204 EKG Tracing & Interpretation Completed 06/17/2014 38285 Diffusing Capacity Completed 06/17/2014 80903 Pulmonary Function><Bronchodil Completed 02/14/2014 Mammogram Completed 04/04/2013 Bone Mineral Density Test Completed 12/28/2012 Mammogram Completed 11/29/2012 68178 EKG Tracing & Interpretation Completed 12/20/2011 Mammogram Completed 03/22/2011 Colonoscopy Completed 12/16/2010 Mammogram Completed 07/09/2010 71807 Noninvasive Ear Or Pulse Oximetry For Oxygen Saturation Completed 05/04/2010 33960 Noninvasive Ear Or Pulse Oximetry For Oxygen Saturation Completed 04/27/2010 90208 Noninvasive Ear Or Pulse Oximetry For Oxygen Saturation Completed 04/19/2010 57032 Noninvasive Ear Or Pulse Oximetry For Oxygen Saturation Completed 04/14/2010 32626 Inhalation [place] For Acute Airway Obstruction Completed W/Nebulizer/Inhaler 11/17/2009 Bone Mineral Density Test Completed 11/17/2009 Mammogram Completed 10/16/2009 90966 EKG Tracing & Interpretation Completed 10/08/2007 63259 EKG Tracing & Interpretation Completed 10/08/2007 90865 EKG Tracing & Interpretation Completed 10/19/2001 Colonoscopy Completed Encounters Type Date Location Provider CPT E/M Dx Office Visit 04/10/2017 [facility] Internal Elif Luevano 81993 L03.115 11:40a Juany Morgan M.D. L60.2 Office Visit 04/06/2017 3:00p [facility] [place] [place] [address] L03.115 Juany Morgan Office Visit 12/23/2016 3:20p [facility] Internal Elif Luevano 19290 Z01.818 Juany Morgan M.D. I10 D68.9 H26.9 J44.9 Office Visit 09/20/2016 3:20p [facility] Internal Elif Luevano 18815 R60.0 Juany Morgan M.D. Office Visit 08/30/2016 11:00a [facility] Internal Elif Luevano 51984 L97.801 Juany Morgan M.D. R60.0 Office Visit 07/21/2016 8:40a [facility] Internal [facility] Elif Luevano 62127 D68.9 - Cathy Herzog R60.0 I10 H02.534 Office Visit 06/14/2016 2:00p [facility] Internal Medicine Elif Luevano 75393 D64.9 - Cathy Herzog D68.9 Office Visit 06/06/2016 8:30a [facility] [address] R91.8 Services Of [facility] J44.9 Office Visit 05/13/2016 2:20p [facility] Internal Medicine Elif Luevano 92501 R91.8 - Cathy Herzog R60.0 Office Visit 04/18/2016 9:00a [facility] Internal Medicine Elif Luevano 55290 R74.0 - Cathy Herzog Z12.11 R91.8 I10 Office Visit 02/26/2016 7:30a [facility] [address] J98.4 Services Of [facility] J44.9 Z87.891 Office Visit 02/11/2016 4:00p [facility] Internal Medicine Elif Luevano 16724 H61.21 - Cathy Herzog Office Visit 02/08/2016 3:20p [facility] Internal Medicine Elif Luevano 87908 Z00.00 - Cathy Herzog R91.1 Z12.11 E78.5 I10 F31.89 Z11.1 Office Visit 11/19/2015 10:00a [facility] Internal Elif Luevano 01851 S81.002D Medicine Mazin Morgan M.D. F31.61 Z79.899 R91.1 Office Visit 11/02/2015 2:40p [facility] Internal Jagjit Dunaway 77200 S81.002A Juany Schulte M.D. Office Visit 10/13/2015 3:20p [facility] Internal Elif Luevano 81432 R23.8 Medicine Mazin Morgan M.D. Office Visit 09/29/2015 10:40a [facility] Internal Elif Luevano 64844 H00.013 Medicine Mazin Morgan M.D. S81.801A R23.8 Office Visit 07/27/2015 10:20a [facility] Internal Medicine Elif Luevano M.D. 00215 I10 - Cathy R31.9 Z87.891 Office Visit 04/09/2015 4:00p [facility] Internal Medicine Elif Luevano 02017 R23.3 - Cathy Herzog Office Visit 10/20/2014 10:00a [facility] Internal Medicine Elif Luevano 97078 496 - Cathy Herzog 599.70 Office Visit 07/25/2014 9:00a [facility] Internal Medicine Elif Luevano M.D. 49673 496 - Cathy 401.1 Office Visit 07/09/2014 10:20a [facility] Internal Medicine Elif Luevano 47843 401.1 - Cathy Herzog 599.70 496 Office Visit 01/27/2014 10:00a [facility] Internal Medicine - [place], MARTINA 34455 780.60 [place] 794.8 V03.82 Office Visit 01/20/2014 1:30p [facility] Internal Medicine - [place], MARTINA 29077 786.05 [place] 780.60 Office Visit 01/10/2014 1:40p [facility] Internal Medicine Elif Luevano, 23469 V70.0 - [place] M.D. 272.2 401.1 296.7 V76.12 496 486 782.3 v04.81 715.04 Office Visit 11/28/2013 1:20p [facility] Internal Medicine Elif Luevano 05941 786.2 - [place] M.D. Office Visit 07/02/2013 11:20a [facility] Internal Medicine Elif Luevano 17522 401.1 - [place] M.D. 272.2 296.7 790.4 Office Visit 04/01/2013 10:00a [facility] Internal Medicine Elif Luevano 08324 401.1 - [place] M.D. 786.2 272.2 Office Visit 11/29/2012 10:20a [facility] Internal Medicine Elif Luevano 17480 V70.0 - [place] M.D. 401.1 272.2 296.7 V76.10 V04.81 Office Visit 10/05/2012 3:20p [facility] Internal Medicine Elif Luevano 04183 782.3 - [place] M.D. Office Visit 09/19/2012 10:40a [facility] Internal Medicine Shana Dela Cruz, N.P. 61954 682.6 - [place] Office Visit 09/07/2012 10:40a [facility] Internal Medicine Shana Dela Cruz, N.P. 27177 682.6 - [place] Office Visit 06/04/2012 9:20a [facility] Internal Medicine Elif Luevano 61847 401.1 - [place] M.D. 496 Office Visit 04/03/2012 10:00a [facility] Internal Medicine Elif Luevano 76671 401.1 - [place] M.D. 296.7 Office Visit 11/28/2011 10:20a [facility] Internal Medicine Elfi Luevano 09150 V70.0 - [place] M.D. 496 401.1 V76.10 280.8 244.9 272.2 V04.81 Office Visit 04/25/2011 11:40a [facility] Internal Medicine Elif Cotton, 24764 401.1 - [place] M.D. 496 280.8 V06.1 Office Visit 07/09/2010 9:00a DO Not Use [employer] Elif Cotton, 31884 496 M.D. 401.1 272.0 Office Visit 05/04/2010 2:30p DO Not Use Elif Cotton, 33901 496 [employer] [facility] M.D. Office Visit 04/27/2010 9:30a DO Not Use Shana Varn, N.P. 79300 496 [employer] [facility] Office Visit 04/19/2010 9:30a DO Not Use Elif Cotton, 81026 496 [employer] M.D. Office Visit 04/14/2010 11:30a DO Not Use Shana Varn, N.P. 10680 466.0 [employer] [facility] Office Visit 10/16/2009 10:15a DO Not Use Elif Cotton, 85230 V70.0 [employer] M.D. 401.1 244.9 296.7 272.0 496 796.9 V03.82 Office Visit 04/21/2009 9:30a DO Not Use RadJasmin saab, 15277 244.9 [employer] M.D. 401.1 296.7 Office Visit 10/13/2008 9:15a DO Not Use Jasmin Walker, 70253 V70.0 [employer] [facility] M.D. 493.90 272.0 401.1 244.9 V04.81 Office Visit 04/07/2008 9:15a DO Not Use RadJasmin saab, 23489 244.9 [employer] M.D. 272.0 496 401.1 Office Visit 10/08/2007 9:45a DO Not Use Jasmin Walker, 50592 V70.0 [employer] M.D. 244.9 272.0 401.1 296.7 Office Visit 07/02/2007 9:00a DO Not Use Jasmin Walker, 05362 244.9 [employer] M.D. 272.0 401.1 Office Visit 04/02/2007 9:00a DO Not Use RadomsShelby dumonta, 50275 272.0 [employer] M.D. 244.9 296.7 401.1 Office Visit 01/15/2007 9:45a DO Not Use RadomsShelby dumonta, 72870 296.7 [employer] M.D. 401.1 Office Visit 12/22/2006 12:45p DO Not Use RadJasmin saab, 12609 782.3 [employer] [facility] M.D. 401.1 Office Visit 11/29/2006 3:45p DO Not Use RadJasmin saab, 14139 599.0 [employer] M.D. 496 401.1 V04.81 Office Visit 11/27/2006 2:00p DO Not Use RadJasmin saab, 87599 781.0 [employer] M.D. 780.79 296.7 786.2 Office Visit 10/04/2006 9:30a DO Not Use RadomsJasmin dumont, 06920 244.9 [employer] M.D. 296.7 401.1 V70.0 Office Visit 05/29/2006 9:15a DO Not Use RadJasmin saab, 22663 493.90 [employer] M.D. 466.0 496 401.1 Office Visit 04/10/2006 9:45a DO Not Use RadJasmin saab, 14192 493.90 [employer] [facility] M.D. 466.0 401.1 Office Visit 03/29/2006 9:45a DO Not Use RadShelby saaba, 98042 466.0 [employer] [facility] M.D. 401.1 493.90 Office Visit 03/10/2006 1:00p DO Not Use RadJasmin saab, 18300 381.4 [employer] [facility] M.D. 465.9 Office Visit 09/27/2005 8:45a DO Not Use RadJasmin saab, 76739 401.1 [employer] [facility] M.D. 272.0 244.9 496 Plan of Care Future Appointment(s):05/05/2017 10:20 am - Elif Luevano M.D. at [facility] Internal Medicine - [place]74/22/2018 2:20 pm - Elif Luevano M.D. at [facility] Internal Medicine - [place]v39/17/2018 9:00 am - Lydia Mayen MD at [facility]04/17/2017 - Elif Luevano M.D.R60.0 Localized edemaNew Xrays:VL Lower Ext Veins RightComments:We are checking the veinsIf the veins are normal - they we need to check the arteriesKeep your leg elevatedReduce the felodipine from 10 mg to 5 mg daily. Felodipine can cause leg swellingFollow up:2 ztylwE86.115 Cellulitis of right lower limbComments: Stay off the antibiotic
--- OUTSIDE RECORDS SUMMARY | 2017-04-22 18:30 | XMS REPORT ---
:1945 External Reference #:[id number] Author Organization [facility] Address [address] [address] Phone [phone] Care Team Providers Name Role Phone Elif Luevano MD Primary Care Physician Unavailable Payers Type Date Identification Numbers Payment Provider Subscriber Medicare Primary Effective: Policy Number: Medicare Carlene Mondragon 1975 [id number] PayID: [id number] [address] [place] [address] [employer] [place] Policy Number: [id number] Medicaid Carlene Mondragon PayID: [id number] [address] [place] [address] Problems Date Description Provider Status Onset: 12/21/2009 Chronic obstructive lung disease Elif Luevano M.D. Active Onset: 11/29/2012 Mixed hyperlipidemia Elif Luevano M.D. Active Onset: 11/29/2012 Hypothyroidism Elif Luevano M.D. Active Onset: 02/02/2015 Essential hypertension Elif Luevano M.D. Active Onset: 02/02/2015 Bipolar disorder Elif Luevano M.D. 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 Mary Gregg [phone]. 2. 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 04/13 hours for /2018 additional 3 days (total 10 days) Jobst Active 03/13 Active Misc 1pair For [...] 90tab one daily Elif (Cholecalcifero /2015 s Cotton, l) M.D. Atorvastatin 09/07 Active Tablets 80mg 90tab take one Elif Calcium /2015 s tablet by Cotton, mouth every M.D. day Hearing Aid 02/27 Active Misc 4unit use as Elif Battery /2015 s directed Cotton, hearing aid M.D. services. Incruse Ellipta 02/02 Active Aerosol 62.5mcg/I 30uni one J44.9 Elif /2014 nh ts inhalation Cotton, every day M.D. Spacer 07/25 Active 1unit for use J44.9 Elif s with Cotton, inhalers M.D. Nebulizer 01/21 Active Kit QS for use 4 Elif Kit/Tubing/Mout /2013 times daily Cotton, hpiece as needed M.D. Tylenol 04/03 Active Tablets 325mg 120ta 1-2 by Elif /2013 bs mouth every Cotton, 4-6 hrs as M.D. needed for pain Felodipine ER 04/03 Active Tablets ER 10mg 90tab take one 24HR s tablet by Cotton, mouth every M.D. day Daily-Jairo 01/12 Active Tablets 90tab take one Elif /2010 s tablet by Cotton, mouth every M.D. day Trazodone HCL 10/16 Active Tablets 50mg 30tab 1 tablet Elif s once daily Bassem, at bedtime M.DSuzette Schriever 10/14 Active Capsules 300mg 60cap 1 by [...] Elif Propionate s sprays into Cotton, each M.DSuzette nostril once daily Oxygen Active 2 liters at Unknown /0000 hs Labetalol HCL Active Tablets 200mg 180ta take one Elif bs tablet by Cotton, mouth twice M.D. a day Levothyroxine Active Tablets 150mcg 90tab take one Elif Sodium s tablet by Cotton, mouth every M.D. day Multi Complete Active Capsules daily Unknown /0000 Jobst Active 07/21 Hx Misc 2Pair For daily R60.0 Elif 15-20MMHG/Knee use High Bassem/Closed - M.DSuzette Toe/Medium 03/13 Sulfamethoxazol 06/11 Hx Tablets 800-160mg 18tab Take One Unknown e/Trimethoprim s Tablet By DS - Mouth Two 07/21 Times A Day Levofloxacin 01/20 Hx Tablets 500mg 10tab one by 786.05 Filiberto s mouth daily MARTINA Kc - for [...] days M.D. 12/03 Zostavax 02/15 Hx Solution [id number] 1unit 1 dose s/c Rec 0.65ML s [...] to once daily over 2-3 weeks Bag [place] 01/04 Hx apply to feet but Cotton, - not between M.D. 01/04 toes bid. Silicone Toe 01/04 Hx use daily [facility] Wrap Slee and remove Cotton, - [...] Solution 0.5-2.5(3 60uni 1 vial in Elif [place]/Albuter )mg/3ML ts nebulizer Cotton, ol Sulfate - [...] 100-10mg/ 120cc 1-2 Elif /0000 5ML teaspoons [place], - every 4-6 M.D. 07/09 hours needed [...] CPT Code Status Date Vaccine Lot # [id number] Given 01/27/2014 Pneumococcal Conjugate Vaccine 13 Valent For [id number] Intramuscular Use 91607 Given 01/10/2014 Flu Vaccine Split Virus Preservative Free For [id number] Indiv 3Yr Older 72321 Given 11/29/2012 Flu Vaccine Split Virus Preservative Free For [id number] Indiv 3Yr Older Q2038 Given 11/28/2011 Fluzone Vaccine [id number] 00335 Given 04/25/2011 Tdap - Tetanus/Diptheria/Acellular Pertussis [id number] Q2035 Given 11/23/2010 Afluria Vaccine [id number] 01059 Given 12/05/2009 Influenza Virus 3Yrs & Over 13806 Given 10/16/2009 Pneumonia Vaccine 09752 Given 02/27/2009 Influenza Virus Vaccine, Pandemic Formulation 42819 Given 10/13/2008 Influenza Virus 3Yrs & Over 60374 Given 12/12/2007 Influenza Virus 3Yrs & Over 33158 Given 12/12/2007 Influenza Virus 3Yrs & Over 61542 Given 11/29/2006 Influenza Virus 3Yrs & Over 97291 Given 08/29/2006 Tetanus And Diptheria (Td) For Adult Use Preservative Free Vital Signs Date Vital Result Comment 04/10/2017 Weight 152.50 lb Heart Rate 67 [...] Color Straw Urine Appearance Clear Urine Specific Cameron 1.004 Low 1.010-1.030 Urine pH 7.0 5-9 [...] Stim 5.62 mcIU/mL High 0.34-5.60 8 Horm) Schriever 0.51 mmol/L Low 0.6-1.2 9 Inr/Protime 09/14/2016 Inr 0.90 0.89-1.11 Laboratory test finding 09/14/2016 Partial Thrombo Time 48.2 seconds High 26.0-36.3 PTT PTT Mixing Studies 09/14/2016 PTT/Normal Control 35.7 seconds 26.0-36.3 PTT/After 1 HR Incubation 39.6 seconds High 26.0-36.3 PT/PTT Mixing Study Interp (SEE NOTE) 10 Factor 8 Profile 09/14/2016 Coagulation Factor VIII Activi 153 % 55 - 200 11 von Willebrand Factor Antigen 199 % 55 - 200 12 VonWillibrand Factor Activity 172 % 55 - 200 13 von Willebrand Panel Interp See Comment 14 Lupus Anticoagulant AB 09/14/2016 Lac Aptt Mix 1:1 43 sec 26 - 36 15 Lac DRVVT Mix Ratio 1.7 ratio 0.0 - 1.1 16 Lup Hexthrombin Time (Bovine) 19 sec 15 - 23 17 Platelet Neutralization 43 18 Platelet Neutraliz Buffer Cont 56 sec 19 Dil Austen Viper Jose Confirm 1.9 ratio 0.0 - 1.1 20 Special Coagulation Interp Performed 21 Prothrombin Time(Lac) 10.8 sec 22 Lac Inr 1.0 Lac Aptt 49 sec 26 - 36 Lac DRVVT Screen Ratio 2.0 ratio 0.0 - 1.1 Lupus Anticoagulant Interpreta See Comment 23 Lupus Anticoagulant Review By Brandee Martinez <SEE NOTE> 24 CBC Auto Diff 06/28/2016 White Blood Count [...] Thrombo Time 51.4 seconds High 26.0-36.3 PTT Schriever 0.50 mmol/L Low 0.6-1.2 Urinalysis Profile 06/09/2016 Urine Color Yellow Urine Appearance Cloudy Urine Specific Cameron 1.003 Low 1.010-1.030 Urine pH 6.0 5-9 [...] And 06/09/2016 Urine Culture SEE RESULT BELOW 25 Sensitivities CBC Auto Diff 06/09/2016 White Blood [...] Blood Cells % 0 Laboratory test finding 06/09/2016 Schriever 0.55 mmol/L Low 0.6-1.2 TSH (Thyroid Stim Horm) 1.34 mcIU/mL 0.34-5.60 B-Type Natriuretic Peptide BNP 23 pg/mL 26 Lactic Acid 1.0 mmol/L 0.5-2.0 27 Inr/Protime 06/09/2016 Inr 0.91 0.89-1.11 Laboratory test finding 06/09/2016 Partial Thrombo Time 45.7 seconds High 26.0-36.3 PTT Comp Metabolic Panel 06/09/2016 Sodium 136 mmol/L [...] Egfr Non- 71.5 >60 Egfr 92.0 >60 28 Laboratory test finding 06/09/2016 Magnesium 1.9 mg/dL 1.9-2.7 Lipase 19 U/L 11.0-82.0 Creatine Kinase(CK) 100 U/L 10-223 C Reactive Protein 11.49 mg/L High < 5.00 29 Troponin-I (TnI) 0.00 ng/mL <0.04 30 CKMB 06/09/2016 CKMB ng/mL 4.1 ng/mL 0.6-6.3 Comp Metabolic Panel 04/30/2016 Albumin 3.9 g/dL [...] 97.7 >60 36 Laboratory test finding 01/23/2016 Schriever 0.50 mmol/L Low 0.6-1.2 37 TSH (Thyroid Stim Horm) 2.24 mcIU/mL 0.34-5.60 38 Urinalysis Profile 01/23/2016 Urine Color Colorless Urine Appearance Clear Urine Specific Cameron 1.003 Low 1.010-1.030 Urine pH 7.0 5-9 [...] Non- 70.5 >60 Egfr 90.7 >60 39 Comp Metabolic Panel 07/08/2015 Sodium 141 mmol/L [...] Egfr Non- 72.8 >60 Egfr 93.6 >60 40 Lipid Profile (Trig/Chol/HDL) 07/08/2015 Triglycerides 87 mg/dL 41 Cholesterol 174 mg/dL 42 HDL Cholesterol 71.5 mg/dL 43 LDL Cholesterol 85 mg/dL 44 CBC No Diff 07/08/2015 White Blood Count [...] Antitrypsin A1a 125 mg/dL 100 - 190 45 Urinalysis Profile 07/08/2015 Urine Color Straw Urine Appearance Clear Urine Specific Cameron 1.003 Low 1.010-1.030 Urine pH 7.0 5-9 Urine Urobilinogen Negative Negative Urine Ketones Negative Negative Urine Protein Negative Negative Urine Leukocytes Negative Negative Urine Blood 2+ Negative Urine Nitrite Negative Negative Urine Bilirubin Negative Negative Urine Glucose Negative Negative Urine White Blood Cell Absent Absent Urine Red Blood Cell 2+(6-10/hpf) Absent Urine Bacteria Absent Absent Urine Squamous Epithelial Cell Present Absent Laboratory test finding 07/08/2015 Schriever 0.53 mmol/L Low 0.6-1.2 46 CBC No Diff 04/09/2015 White Blood Count [...] Color Straw Urine Appearance Clear Urine Specific Cameron 1.004 Low 1.010-1.030 Urine pH 7.0 5-9 Urine Urobilinogen Negative Negative Urine Ketones Negative Negative Urine Protein Negative Negative Urine Leukocytes Negative Negative Urine Blood Negative Negative Urine Nitrite Negative Negative Urine Bilirubin Negative Negative Urine Glucose Negative Negative Ua Routine 07/09/2014 Ua Specific Cameron 1.000 Ua PH 6.0 Ua Color yellow [...] 83.9 >60 52 Laboratory test finding 06/24/2014 Schriever 0.47 mmol/L Low 0.6-1.2 TSH (Thyroid Stimulating [...] Color Straw Urine Appearance Clear Urine Specific Cameron 1.003 Low 1.010-1.030 Urine pH 7.0 5-9 [...] Non- 69.9 >60 Egfr 89.9 >60 53 Urinalysis Profile 01/20/2014 Urine Color Straw Urine Appearance Clear Urine Specific Cameron 1.005 Low 1.010-1.030 Urine pH 7.0 5-9 [...] 137 mmol/L 133-145 Potassium 3.9 mmol/L 3.5-5.0 54 Chloride 104 mmol/L 101-111 Co2 Carbon Dioxide [...] Egfr Non- 68.0 >60 Egfr 87.4 >60 55 Laboratory test finding 01/20/2014 Blood Culture (SEE NOTE) 56 CBC Auto Diff 01/20/2014 White Blood [...] 0-2 Nucleated Red Blood Cells % 0 Urine Culture And Sensitivities 01/20/2014 Urine Culture (SEE NOTE) 57 Urinalysis Profile 07/11/2013 Urine Color Yellow 58 Urine Appearance Clear 58 Urine Specific Cameron 1.006 Low 1.010-1.030 58 Urine Esterase Negative [...] >60 59, 64 Laboratory test finding 07/10/2013 Schriever 0.75 mmol/L 0.6-1.2 59 TSH (Thyroid Stimulating [...] Core Total Ab Negative Negative 59, 67 Laboratory test finding 12/28/2012 Schriever 0.6 mmol/L 0.5-1.5 Urinalysis W/Microscopic 12/28/2012 Urine Color Yellow Urine Appearance Clear Urine Specific Cameron 1.008 Low 1.010-1.030 Urine Esterase Trace Negative [...] Seen Bacteria Urine None Seen None Seen Comp Metabolic Panel 12/28/2012 Sodium 141 mmol/L [...] Non- 62.1 >60 Egfr 79.8 >60 68 Lipid Profile (Trig/Chol/HDL) 12/28/2012 Triglycerides 100 mg/dL 40-200 Cholesterol 193 mg/dL Less than 200 HDL Cholesterol 65 mg/dL High 40-60 69 Cholesterol/HDL Ratio 3.0 Average 1-4.44 LDL Cholesterol 108.0 High Less Than 100 70 Laboratory test finding 12/28/2012 TSH (Thyroid Stimulating [...] Cells % 0.1 Laboratory test finding 05/30/2012 Varicella-Zoster IgG Antibody [...] 107.0 >60 73 Laboratory test finding 05/30/2012 Schriever 0.7 mmol/L 0.5-1.5 TSH (Thyroid Stimulating Horm) 0.54 miu/mL 0.34-5.60 74 Vitamin D, 25 Hydroxy 05/30/2012 25-Hydroxy Vitamin D2 <4.0 ng/mL 25-Hydroxy Vitamin D3 42 ng/mL 25-Hydroxy Vitamin D Total 42 ng/mL 75 Lipid Profile (Trig/Chol/HDL) 11/21/2011 Triglycerides 137 mg/dL 40-200 Cholesterol 190 mg/dL Less than 200 76 HDL Cholesterol 59 mg/dL 40-60 77 Cholesterol/HDL Ratio 3.2 AVERAGE 1-4.44 LDL Cholesterol 103.6 mg/dL High Less Than 100 Comp Metabolic Panel 11/21/2011 Sodium 142 mmol/L [...] 1.7 1-3 Total Bilirubin 0.7 mg/dL 0.1-1.0 78 Alkaline Phosphatase 94 U/L 30-110 Alt 36 U/L 14-54 Ast 33 U/L 12-42 Egfr Non- 71.3 >60 Egfr 91.7 >60 79 Laboratory test finding 11/21/2011 TSH (Thyroid Stimulating 0.57 MIU/ML 0.34-5.60 Horm) Hemoglobin A1c 5.3 % Less than 6.0 80 Schriever 0.6 mmol/L 0.5-1.5 Laboratory test finding 11/21/2011 Ferritin 30 NG/ML 11-307 CBC Auto Diff 11/21/2011 White Blood Count [...] 0-2 Nucleated Red Blood Cells % 0 CBC Auto Diff 07/27/2011 White Blood Count [...] test finding 11/10/2010 TSH 0.77 MIU/ML 0.34-5.60 Schriever 0.8 mmol/L 0.5-1.5 Urinalysis W/Microscopic 11/10/2010 Ua Color YELLOW Yellow Appearance-Urine CLEAR Clear Specific Cameron-Ur 1.004 Low 1.010-1.030 Esterase-Urine TRACE Negative Nitrite NEGATIVE Negative Wkhweknxexky-Cs-EWW NEGATIVE Negative Protein-Urine NEGATIVE Negative PH-Urine 7.5 [...] test finding 10/21/2009 TSH 1.09 MIU/ML 0.34-5.60 Schriever 0.8 mmol/L 0.5-1.5 Urinalysis W/Microscopic 10/16/2009 Ua Color YELLOW Yellow Appearance-Urine CLEAR Clear Specific Cameron-Ur 1.005 Low 1.010-1.030 Esterase-Urine 1+ Negative Nitrite NEGATIVE Negative Rhiejplyrtdi-Eq-DHU NEGATIVE Negative Protein-Urine NEGATIVE Negative PH-Urine 6.5 5-9 Blood-Urine NEGATIVE Negative Ketones-Urine NEGATIVE Negative Bilirubin-Ur NEGATIVE Negative Glucose-Urine NEGATIVE Negative WBC-Urine 5-10 0-5 RBC-Urine 0-5 0-2 Epith Cells-Ur RARE None Bacteria-Urine TRACE None Amorphous Sed-U TRACE None Urine Culture & Sensitivi 10/16/2009 Urine Culture Sensitivi NG 104 1 SEE RESULT BELOW Name: KOKICRISTHIANCARLENE : [address]: Elif Luevano MD Acct: [id number] Unit: [id number] AGE: 71 Location: [facility] Re03/24/17 SEX: F Status: REG REF SPEC: [id number] JOAQUINA: 03/24/[address] [facility] [address]: Elif Luevano MD REQ: [id number] RECD: 03/24/17 STATUS: COMP _ SOURCE: URINE SPDESC: ORDERED: Urine Culture Procedure Result Reported Site Urine Culture Final 03/25/17- 1230 ML No Growth (<1,000 CFU/mL) * ML - [facility] ([facility]) . END OF REPORT * ML=Testing performed at [facility] DEPARTMENT OF PATHOLOGY, [address] [place] [address] Jimbo Pratt M.D. Director [facility] # [id number] 2 Because ethnic data is not always [...] 10 HOUR 9 FASTING 10 HOUR 10 PT is 11.0. 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 With incubation, PTT does not entirely correct (39.6), raising the possibility of a factor inhibitor. Reviewed by: Sapphire Mora MD 11 ADDITIONAL INFORMATION This test has been modified from the it administrative assistant's instructions. Its performance characteristics were determined by [facility] in a manner consistent with CLIA requirements. This test has not been cleared or approved by the U.S. Food and Drug Administration. 12 ADDITIONAL INFORMATION This test has been modified from the it administrative assistant's instructions. Its performance characteristics were determined by [facility] in a manner consistent with CLIA requirements. This test has not been cleared or approved by the U.S. Food and Drug Administration. 13 ADDITIONAL INFORMATION This test has been modified from the it administrative assistant's instructions. Its performance characteristics were determined by [facility] in a manner consistent with CLIA requirements. This test has not been cleared or approved by the U.S. Food and Drug Administration. 14 No laboratory evidence of von Willebrand's disease [...] not reviewed by physician. Test Performed by: [address] [address] 15 ADDITIONAL INFORMATION This test has been modified from the it administrative assistant's instructions. Its performance characteristics were determined by [facility] in a manner consistent with CLIA requirements. This test has not been cleared or approved by the U.S. Food and Drug Administration. Test Performed by: [address] [address] 16 Test Performed by: [address] [address] 17 ADDITIONAL INFORMATION This test has been modified from the it administrative assistant's instructions. Its performance characteristics were determined by [facility] in a manner consistent with CLIA requirements. This test has not been cleared or approved by the U.S. Food and Drug Administration. Test Performed by: [address] [address] 18 ADDITIONAL INFORMATION This test was developed and its performance characteristics determined by [facility] in a manner consistent with CLIA requirements. This test has not been cleared or approved by the U.S. Food and Drug Administration. 19 Test Performed by: [address] [address] 20 Test Performed by: [address] [address] 21 Test Performed by: [address] [address] 22 REFERENCE VALUE 10.3 - 12.8 23 IMPRESSION: 1) Data are diagnostic of presence [...] and common procoagulant pathways within assay sensitivities. 24 Arlin Kuo M.D. Test Performed by: [facility] - [address] [address] 25 SEE RESULT BELOW Name: CARLENE MONDRAGON : [address]: Vinay Chen MD Acct: [id number] Unit: [id number] AGE: 70 Location: ED Re06/09/16 SEX: F Status: DEP ER SPEC: [id number] JOAQUINA: 06/09/16-[address]: Vinay Chen MD REQ: [id number] RECD: 06/09/16 STATUS: TANG METCALF DR: Elif Luevano MD _ SOURCE: URINE SPDESC: ORDERED: Urine Culture Procedure Result Reported Site Urine Culture Final 06/10/16- 1614 ML No growth of clinically significant organisms * ML - [facility] ([facility]) . END OF REPORT * ML=Testing performed at Main Lab DEPARTMENT OF PATHOLOGY, [address] [place] [address] Jimbo Pratt M.D. Director [facility] # [id number] 26 >100 to <200 pg/mL: likely compensated congestive heart failure (CHF) 200 to 400 pg/mL: likely moderate CHF >400 pg/mL: likely moderate to severe CHF 27 [facility] Severe Sepsis and Septic Shock Management Bundle Measure requires all lactic acids initially measuring >2.0 mmol/L be repeated. 28 Because ethnic data is not always readily [...] 15-29 5 Kidney failure <15 (or dialysis) 29 Acute inflammation: >10.00 30 99th percentile=0.04 ng/mL Troponin results at [facility] and [facility] are not interchangeable. 31 Because ethnic data is not always [...] 5 Kidney failure <15 (or dialysis) 40 Because ethnic data is not always readily [...] 15-29 5 Kidney failure <15 (or dialysis) 41 Desirable <150 Borderline high 150-199 High 200-499 Very High >500 42 Desirable <200 Borderline high 200-239 High >239 43 Low <40 Desirable: 40-60 High: >60 44 Desirable: <100 mg/dL Near Optimal: 100-129 mg/dL Borderline High: 130-159 mg/dL High: 160-189 mg/dL Very High: >189 mg/dL 45 Test Performed by: [address] [address] [employer] Grade Teacher: Vinay Bojorquez II, M.D., Ph.D. 46 FASTING 10 HOUR DUE IN June RUN DATE: 06/26/14 [facility] LIVE PAGE 1 RUN TIME: [address] [place] [id number] Specimen Inquiry Name: CARLENE MONDRAGON : [address]: Elif Luevano MD Acct: [id number] Unit: [id number] AGE: 68 Location: LAB Re06/24/14 SEX: F Status: REG REF SPEC: [id number] JOAQUINA: 06/24/14-[address]: Elif Luevano MD REQ: [id number] RECD: 06/24/14 STATUS: COMP _ SOURCE: URINE SPDESC: ORDERED: Urine Culture QUERIES: Provider Requisition # [id number] Procedure Result Verified Site Urine Culture Final 06/26/14- 1641 ML Organism 1 NORMAL TITO [place] Count 10-25,000 (Moderate) CFU/ML * ML - [facility] LAB ([facility]) . END OF REPORT * ML=Testing performed at Main Lab DEPARTMENT OF PATHOLOGY, [address] [place] [address] Jimbo Pratt M.D. Director [facility] # [id number] 48 Desirable <150 Borderline high 150-199 High [...] 5 Kidney failure <15 (or dialysis) 54 Potassium reference range changed effective 12/22/13 55 Because ethnic data is not always readily [...] 15-29 5 Kidney failure <15 (or dialysis) 56 RUN DATE: 01/25/14 [facility] LIVE PAGE 1 RUN TIME: [address] [place] [address] Specimen Inquiry Name: CARLENE MONDRAGON : [address]: Filiberto Kc NP Acct: [id number] Unit: [id number] AGE: 68 [facility] Re01[facility]20[facility] SEX: F Status: REG REF SPEC: [id number] JOAQUINA: 01/20/[address] [facility] [address]: Filiberto Kc NP REQ: [id number] RECD: 01/20/14 STATUS: TANG METCALF DR: Elif Tijerina MD _ SOURCE: BLOOD,VENO SPDESC: ORDERED: Blood Cult QUERIES: Medent Number [id number] Procedure Result Verified Site Aerobic Culture Bottle Final 01/25/14- 1450 ML No Growth Day 5 Anaerobic Culture Bottle Final 01/25/14- 1450 ML No Growth Day 5 END OF REPORT * ML=Testing performed at Main Lab DEPARTMENT OF PATHOLOGY, [facility] [email or web address] [place], [place] [address] Jimbo Pratt M.D. Director [facility] # [id number] 57 RUN DATE: 01/22/14 [facility] LIVE PAGE 1 RUN TIME: 913 [facility] [employer] [place], [place] [address] Specimen Inquiry Name: CARLENE MONDRAGON : [address]: Filiberto Kc NP Acct: [id number] Unit: [id number] AGE: 68 Location[facility] Re01/20/14 SEX: F Status: REG REF SPEC: [id number] JOAQUINA: 01/20/14-[address]: Filiberto Kc NP REQ: [id number] RECD: 01/20/14 STATUS: TANG METCALF DR: Elif Dimaser MD _ SOURCE: URINE SPDESC: ORDERED: Urine Culture QUERIES: Medent Number [id number] Procedure Result Verified Site Urine Culture Final 01/22/14- 912 ML Organism 1 NORMAL TITO [place] Count 25-50,000 (Moderate) CFU/ML END OF REPORT * ML=Testing performed at Main Lab DEPARTMENT OF PATHOLOGY, [address] [place] [address] Jimbo Pratt M.D. Director [facility] # [id number] 58 WITH MICROSCOPIC 59 FASTING 60 Desirable [...] the CDC guidelines. 67 Test Performed by: [place] [address] [employer] Grade Teacher: Austin Vega III, M.D. 68 Because ethnic [...] REFERENCE VALUE -- Negative Test Performed by: [place] [address] Sixth Grade Teacher: Austin Vega III, M.D. 72 FASTING 73 [...] normal population are 25-80 Test Performed by: [place] [id number] Sixth Grade Teacher: Austin Vega III, M.D. 76 Desirable: Less than 200 MG/DL Borderline-High Risk: 200-239 MG/DL High-Risk: 240 MG/DL and over 77 HDL Interpretation: Undesirable: High Risk: Less than 40 MG/DL Desirable: Low Risk: Greater than 60 MG/DL 78 A metabolite of Naproxen, O-desmethylnaproxen, has been shown to interfere with the [place] method for measuring total bilirubin. Samples from patients who have taken Naproxen have shown spurious elevation in total bilirubin levels. 79 Because ethnic data is not always readily [...] 15-29 5 Kidney failure <15 (or dialysis) 80 Therapeutic target for the treatment of diabetes Mellitus patients is <7% HBA1C, and in selective patients <6.0%.Please refer to [place] [employer] Diabetic care guidelines for further information. 81 Lymphopenia % 82 Neutrophilia % Lymphopenia % 83 ---- RUN DATE: 03/24/11 [facility] NMI LIVE PAGE 1 RUN TIME: 1239 Specimen Inquiry RUN USER: INTERFACE -- Name: CARLENE MONDRAGON Mo Orta#: [id number] Status: REG REF Re03/22/11 Age/Sex: 65/F Unit#: [id number] Location: [facility] : [birth year] -- Specimen: [id number] [id number] Spec Date: 03/22/[address]: Paulo [...] 03/24/11 1237 -- -- DEPARTMENT OF PATHOLOGY, [address] [place] [address] [facility] Permit #[id number] Jimbo Pratt M.D. Director Jonna Song M.D. Shingles Roofer Dir wagner -- 84 Neutrophilia % Lymphopenia [...] has been shown to interfere with the [place]-Lafe method for measuring total bilirubin. Samples from [...] change was based on recommendations from the [place] [employer]. 98 Please note change in reference range effective 07 . 99 A metabolite of Naproxen, O-desmethylnaproxen, has been shown to interfere with the [place]endrass[place]-Lafe method for measuring total bilirubin. Samples from [...] Procedures Date CPT Code Description Status 12/23/2016 77448 EKG Tracing & Interpretation Completed 07/05/2016 Colonoscopy Completed 07/08/2015 Mammogram Completed 02/19/2015 66604 Repair Hernia Umbilical > 5 Yrs, Reducible Completed 02/02/2015 28930 EKG Tracing & Interpretation Completed 06/17/2014 72451 Diffusing Capacity Completed 06/17/2014 48389 Pulmonary Function><Bronchodil Completed 02/14/2014 Mammogram Completed 04/04/2013 Bone Mineral Density Test Completed 12/28/2012 Mammogram Completed 11/29/2012 69049 EKG Tracing & Interpretation Completed 12/20/2011 Mammogram Completed 03/22/2011 Colonoscopy Completed 12/16/2010 Mammogram Completed 07/09/2010 70867 Noninvasive Ear Or Pulse Oximetry For Oxygen Saturation Completed 05/04/2010 95457 Noninvasive Ear Or Pulse Oximetry For Oxygen Saturation Completed 04/27/2010 04807 Noninvasive Ear Or Pulse Oximetry For Oxygen Saturation Completed 04/19/2010 22003 Noninvasive Ear Or Pulse Oximetry For Oxygen Saturation Completed 04/14/2010 94784 Inhalation TX For Acute Airway Obstruction Completed W/Nebulizer/Inhaler 11/17/2009 Bone Mineral Density Test Completed 11/17/2009 Mammogram Completed 10/16/2009 54866 EKG Tracing & Interpretation Completed 10/08/2007 39103 EKG Tracing & Interpretation Completed 10/08/2007 93631 EKG Tracing & Interpretation Completed 10/19/2001 Colonoscopy Completed Encounters Type Date Location Provider CPT E/M Dx Office Visit 12/23/2016 [facility] [address] Internal Elif Luevano [address] Z01.818 3:20p Juany Morgan M.D. I10 D68.9 H26.9 J44.9 Office Visit 09/20/2016 3:20p [facility] [address] Internal Elif Luevano 07753 R60.0 Medicine Mazin Morgan M.D. Office Visit 08/30/2016 11:00a [facility] [address] Internal Elif Luevano 94005 L97.801 Juany Morgan M.D. R60.0 Office Visit 07/21/2016 8:40a [facility] [address] Internal Medicine Elif Luevano [address]39 D68.9 - Cathy Herzog R60.0 I10 H02.534 Office Visit 06/14/2016 2:00p [facility] [address] Internal Medicine Elif Luevano 39944 D64.9 - Cathy Herzog D68.9 Office Visit 06/06/2016 8:30a [facility] [address] R91.8 Services Of [facility] [address] J44.9 Office Visit 05/13/2016 2:20p [facility] [address] Internal Medicine Elif Luevano [address] R91.8 - Cathy Herzog R60.0 Office Visit 04/18/2016 9:00a [facility] [address] Internal Medicine Elif Luevano [address] R74.0 - Cathy Herzog Z12.11 R91.8 I10 Office Visit 02/26/2016 7:30a Pul[facility] [address] J98.4 Services Of [facility] [address] J44.9 Z87.891 Office Visit 02/11/2016 4:00p [facility] [address] Internal Medicine Elif Luevano [address] H61.21 - Cathy Herzog Office Visit 02/08/2016 3:20p [facility] [address] Internal Juany Luevano [address]891 Z00.00 - [place] Mino R91.1 Z12.11 E78.5 I10 F31.89 Z11.1 Office Visit 11/19/2015 10:00a [facility] [address] Internal Elif Luevano, [address] S81.002D Medicine - Cathy Herzog F31.61 Z79.899 R91.1 Office Visit 11/02/2015 2:40p [facility] [address] Internal Jagjit Dunaway, 74435 S81.002A Medicine - [place] Brandee.Bj Office Visit 10/13/2015 3:20p [facility] [address] Internal Elif Luevano 37453 R23.8 Medicine - Cathy Herzog Office Visit 09/29/2015 10:40a [facility] [address] Internal Elif Luevano 40127 H00.013 Medicine - Cathy Herzog S81.801A R23.8 Office Visit 07/27/2015 10:20a [facility] [address] Internal Medicine Elif Luevano M.D. 77058 I10 - Cathy R31.9 Z87.891 Office Visit 04/09/2015 4:00p [facility] [address] Internal Medicine Elif Luevano 80741 R23.3 - Cathy Herzog Office Visit 10/20/2014 10:00a [facility] [address] Internal Medicine Elif Luevano [address]10[address] 496 - Cathy Herzog 599.70 Office Visit 07/25/2014 9:00a [facility] [address] Internal Medicine Elif Luevano M.D. 57488 496 - Riesel 401.1 Office Visit 07/09/2014 10:20a [facility] [address] Internal Medicine Elif Luevano 89981 401.1 - Riesel Mino 599.70 496 Office Visit 01/27/2014 10:00a [facility] [address] Internal [place] [address] 780.60 [place]el 794.8 V03.82 Office Visit 01/20/2014 1:30p [facility] [address] [place] [address] 786.05 [place]el 780.60 Office Visit 01/10/2014 1:40p [facility] [address] Internal Medicine Elif Luevano 82476 V70.0 - Cathy Herzog 272.2 401.1 296.7 V76.12 496 486 782.3 v04.81 715.04 Office Visit 11/28/2013 1:20p [facility] [address] Internal Medicine Elif Bassem, 10198 786.2 - [place]ies[place] M.D. Office Visit 07/02/2013 11:20a [facility] [address] Internal Medicine Elif Bassem, 05859 401.1 - [place] M.D. 272.2 296.7 790.4 Office Visit 04/01/2013 10:00a [facility] [address] Internal Medicine Elif Bassem, 87269 401.1 - [place] M.D. 786.2 272.2 Office Visit 11/29/2012 10:20a [facility] [address] Internal Medicine Eilf Cotton, 31701 V70.0 - [place] M.D. 401.1 272.2 296.7 V76.10 V04.81 Office Visit 10/05/2012 3:20p [facility] [address] Internal Medicine Elif Cotton, 68699 782.3 - [place] M.D. Office Visit 09/19/2012 10:40a [facility] [address] Internal Medicine Shana Dela Cruz, N.P. 14683 682.6 - [place] Office Visit 09/07/2012 10:40a [facility] [address] Internal Medicine Shana Dela Cruz, N.P. 72663 682.6 - [place] Office Visit 06/04/2012 9:20a [facility] [address] Internal Medicine Elif Cotton, 87319 401.1 - [place] M.D. 496 Office Visit 04/03/2012 10:00a [facility] [address] Internal Medicine Elifserina Luevano 10492 401.1 - [place] M.D. 296.7 Office Visit 11/28/2011 10:20a [facility] [address] Internal Medicine Elifserina Luevano 10109 V70.0 - [place]ies[place] M.D. 496 401.1 V76.10 280.8 244.9 272.2 V04.81 Office Visit 04/25/2011 11:40a [facility] [address] Internal Medicine Elifradha Luevano 32405 401.1 - [place] M.D. 496 280.8 V06.1 Office Visit 07/09/2010 9:00a DO Not Use [facility] [address]-[place] Elif Luevano, 13111 496 M.D. 401.1 272.0 Office Visit 05/04/2010 2:30p DO Not Use Elif Cotton, 68461 496 On Car Supervisor-[place] M.D. Office Visit 04/27/2010 9:30a DO Not Use Shana Patrician, N.P. 96914 496 On Car Supervisor-[place] Office Visit 04/19/2010 9:30a DO Not Use Elif Cotton, 01157 496 On Car Supervisor-[place] M.D. Office Visit 04/14/2010 11:30a DO Not Use Shana Varn, N.P. 79244 466.0 On Car Supervisor-[place] Office Visit 10/16/2009 10:15a DO Not Use Elif Cotton, 50482 V70.0 On Car Supervisor-[place] M.D. 401.1 244.9 296.7 272.0 496 796.9 V03.82 Office Visit 04/21/2009 9:30a DO Not Use RadomsShelby dumonta, 09889 244.9 On Car Supervisor-[place] M.D. 401.1 296.7 Office Visit 10/13/2008 9:15a DO Not Use RadomsShelby dumonta, 18680 V70.0 On Car Supervisor-[place] M.D. 493.90 272.0 401.1 244.9 V04.81 Office Visit 04/07/2008 9:15a DO Not Use Radomsjulia Jasmin, 76587 244.9 On Car Supervisor-[place] M.D. 272.0 496 401.1 Office Visit 10/08/2007 9:45a DO Not Use RadomsShelby dumonta, 43188 V70.0 On Car Supervisor-[place] M.D. 244.9 272.0 401.1 296.7 Office Visit 07/02/2007 9:00a DO Not Use Radomsjulia Jasmin, 72138 244.9 On Car Supervisor-[place] M.D. 272.0 401.1 Office Visit 04/02/2007 9:00a DO Not Use RadomsShelby dumonta, 16839 272.0 On Car Supervisor-[place] M.D. 244.9 296.7 401.1 Office Visit 01/15/2007 9:45a DO Not Use RadShelby saaba, 10012 296.7 On Car Supervisor-[place] M.D. 401.1 Office Visit 12/22/2006 12:45p DO Not Use RadomskiShelbya, 76052 782.3 On Car Supervisor-[place] M.D. 401.1 Office Visit 11/29/2006 3:45p DO Not Use Radomski Jasmin, 03920 599.0 On Car Supervisor-[place] M.D. 496 401.1 V04.81 Office Visit 11/27/2006 2:00p DO Not Use Radomski Jasmin, 76116 781.0 On Car Supervisor-[place] M.D. 780.79 296.7 786.2 Office Visit 10/04/2006 9:30a DO Not Use Radomski Jasmin, 28661 244.9 On Car Supervisor-[place] M.D. 296.7 401.1 V70.0 Office Visit 05/29/2006 9:15a DO Not Use Radomski Jasmin, 29548 493.90 On Car Supervisor-[place] M.D. 466.0 496 401.1 Office Visit 04/10/2006 9:45a DO Not Use Radomski Jasmin, 17110 493.90 On Car Supervisor-[place] M.D. 466.0 401.1 Office Visit 03/29/2006 9:45a DO Not Use Radomski Jasmin, 53756 466.0 On Car Supervisor-[place] M.D. 401.1 493.90 Office Visit 03/10/2006 1:00p DO Not Use Radomski Jasmin, 67528 381.4 On Car Supervisor-[place] M.D. 465.9 Office Visit 09/27/2005 8:45a DO Not Use Radomsjulia Jasmin, 10216 401.1 On Car Supervisor-[place] M.D. 272.0 244.9 496 Plan of Care Future Appointment(s):04/17/2017 2:20 pm - Elif Luevano M.D. at [facility] [address] Internal Medicine [facility]07/11/2017 2:20 pm - Elif Luevano M.D. at [facility] [address] Internal Medicine [facility]06/06/2017 9:00 am - Lydia Mayen MD at [facility] [address]04/10/2017 - Elif Luevano M.D.L03.115 Cellulitis of right lower limbComments:Continue cephalexin for full10 daysMay return to work.Keep right leg elevated when sittingFollow up:1 weekL60.2 OnychogryphosisComments:See special services supervisor to trim the toe nailsReferral:Abilio Mir DPM, Surgery, Foot/Surgical Instrument Repair Specialist
--- OUTSIDE RECORDS SUMMARY | 2017-04-22 18:32 | XMS REPORT ---
:1945 External Reference #:[id number] Author Organization [facility] Address [address] [address] Phone [phone] Care Team Providers Name Role Phone Elif Luevano MD Primary Care Physician Unavailable Payers Type Date Identification Numbers Payment Provider Subscriber Medicare Primary Effective: Policy Number: Medicare Carlene Mondragon 1975 [id number] PayID: [id number] [address] [place] [address] [employer] Policy Number: [id number] Medicaid Carlene Mondragon PayID: [id number] [address] [place] [address] Problems Date Description Provider Status Onset: 12/21/2009 Chronic obstructive lung disease Elif Luevano M.D. Active Onset: 11/29/2012 Mixed hyperlipidemia Elif Luevano M.D. Active Onset: 11/29/2012 Hypothyroidism Elif Luevano M.D. Active Onset: 02/02/2015 Essential hypertension Elif Luevano M.D. Active Onset: 02/02/2015 Bipolar disorder Elif Luevano M.D. Active Family History Date Family Member(s) Problem(s) Comments Father due to Blood clots () - extension work director does not know details Siblings 5 Siblings 1 brother , two other living, details unknown brothers and one sister who are still First Brother due to Unknown Causes () Social History Type Date Description Comments Marital Status Single Lives With [facility] ([facility]) - half-way. Staffed 12/09. 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 Mary Gregg [phone]. 2. 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 Group Home caregiver Mary reported that the state would need to be contacted for major decisions Allergies, Adverse Reactions, Alerts Date Description Reaction Status Severity Comments 10/14/2009 No Known Drug Allergy active Medications Medication Date Status Form Strength Qnty SIG Indications Ordering Provider Cephalexin 04/06 Hx Tablets 500mg 21tab take one L03.115 Filiberto s tablet MARTINA Kc - every 8 04/13 hours for days Jobst Active 03/13 Active Misc 1pair For [...] Active Aerosol 62.5mcg/I 30uni one J44.9 Elif nh ts inhalation Cotton, every day M.D. [...] s once daily Bassem, at bedtime M.DSuzette [place] 10/14 Active Capsules 300mg 60cap 1 by mouth Elif Carbonate s twice daily Mino Luevano Flovent HFA 10/01 Active Aerosol 220mcg/Ac 3unit inhale two Elif t s puffs by Cotton, mouth twice M.D. a day Abilify Active Tablets 5mg 30tab 1 tablet Elif /0000 s once a day Mino Luevano Fluticasone Active Suspension 50mcg/Act 3unit use two Elif Propionate s sprays into Cotton, each M.D. nostril once daily Oxygen Active 2 liters at Unknown /0000 hs Labetalol HCL Active Tablets 200mg 180ta take one Elif /0000 bs tablet by Cotton, mouth twice M.D. a day Levothyroxine Active Tablets 150mcg 90tab take one Elif Sodium s tablet by Cotton, mouth every M.D. day Multi Complete Active Capsules daily Unknown /0000 Jobst Active 07/21 Hx Misc 2Pair For daily R60.0 Elif 15-20MMHG/Knee use Cotton, High/Closed - M.DSuzette Toe/Medium 03/13 Sulfamethoxazol 06/11 Hx Tablets 800-160mg 18tab Take One Unknown e/Trimethoprim s Tablet By DS - Mouth Two 07/21 Times A Day Levofloxacin 01/20 Hx Tablets 500mg 10tab one by 786.05 Filiberto s mouth daily MARTINA cK - for 10 days 01/31 Albuterol 01/20 [...] 750mg 10tab 1 by mouth 786.2 Elif /2014 s every day Cotton, - for 10 days M.D. 12/03 Zostavax 02/15 Hx Solution 81790Ega/ 1unit 1 dose s/c Rec 0.65ML s [...] - 14" length M.D. 10/24 17" knee /2" Cephalexin 09/19 Hx Capsules 500mg 21cap 1 po tid 682.6 Shana /2013 s for 7 days Varn, N.P. - 09/26 Amoxicillin/Cla 09/07 Hx Tablets 875-125mg 14tab one tablet 682.6 Shana vulanat s by mouth Varn, N.P. Potassium - twice daily 09/14 for 7 days Lipitor 07/04 Hx Tablets 40mg 90tab Take One s Tablet By Cotton, - Mouth Every M.D. Suzi DM 04/03 Hx Syrup 100-10mg/ prn 5ML Cotton, - M.D. 07/02 Ferrous Sulfate 07/11 Hx Tablets 325(65Fe) 30tab Take 1 mg s Tablet By Cotton, - Mouth 3 M.D. 11/30 Times Weekly; Increase To Once Daily Over 2 To 3 Weeks Atorvastatin 06/29 Hx Tablets 40mg 90tab 1 by mouth Elif s once daily Cotton, - M.D. 07/04 Iron Supplement 04/02 Hx Tablets 325(65Fe) 30tab 1 po 3 mg s times Cotton, - weekly, M.D. 11/30 increase to once daily over 2-3 weeks Bag [place] 01/04 Hx apply to feet but Cotton, - not between M.D. 01/04 toes bid. Silicone Toe 01/04 Hx use daily [facility] Wrap Sleeve and remove Cotton, - at night. M.D. 01/04 Travel Deferred 05/06 Hx Patient was advised not Cotton, - to travel M.D. 05/1304/27/10 through 05/11/10 due to a serious medical illness. Atrovent HFA 05/04 Hx Aerosol 17mcg/Act 12.9u Inhale Two J44.9 nits Puffs By Cotton, - Mouth Every M.D. 02/20 4 Hours as Needed Mucinex 04/27 Hx Tablets ER 600mg 30tab one po 496 12HR s every 12 Cotton, - hours M.D. 05/04 Ipratropium 04/14 Hx Solution 0.5-2.5(3 60uni 1 vial in Elif Bryant/Albuter )mg/3ML ts nebulizer Cotton, ol Sulfate - twice daily M.D. 05/04 Nebulizer 04/14 Hx 1unit use three Elif /2011 s times daily Cotton, - as needed [...] 100-10mg/ 120cc 1-2 Elif /0000 5ML teaspoons Portal, - every 4-6 M.D. 07/09 hours needed Prednisone Hx Tablets 20mg 10tab 1 tablet Unknown / s twice a day - 05/04 Vitamin D Hx Capsules 1000Unit 30cap po qd Unknown / s - 11/15 Gas-X Hx Chewtabs 80mg prn Unknown /0000 - 07/02 Amoxicillin/Pot Hx Tablets 875-125mg 20tab 1 po bid Unknown assium s Clavulanate - 10/05 Bacitracin Hx Ointment as needed Unknown /0000 - 09/13 Amoxicillin/Cla Hx Tablets 875-125mg one tablet Unknown vulanate /0000 by mouth Potassium - twice daily 10/12 for 10 days /2016 Cephalexin Hx Tablets 500mg take 1 by [...] CPT Code Status Date Vaccine Lot # [id number] Given 01/27/2014 Pneumococcal Conjugate Vaccine 13 Valent For [id number] Intramuscular Use 59134 Given 01/10/2014 Flu Vaccine Split Virus Preservative Free For [id number] Indiv 3Yr Older 30047 Given 11/29/2012 Flu Vaccine Split Virus Preservative Free For [id number] Indiv 3Yr Older Q2038 Given 11/28/2011 Fluzone Vaccine [id number] 26686 Given 04/25/2011 Tdap - Tetanus/Diptheria/Acellular Pertussis [id number] Q2035 Given 11/23/2010 Afluria Vaccine [id number] 42514 Given 12/05/2009 Influenza Virus 3Yrs & Over 95959 Given 10/16/2009 Pneumonia Vaccine 40390 Given 02/27/2009 Influenza Virus Vaccine, Pandemic Formulation 15036 Given 10/13/2008 Influenza Virus 3Yrs & Over 17837 Given 12/12/2007 Influenza Virus 3Yrs & Over 06810 Given 12/12/2007 Influenza Virus 3Yrs & Over 41534 Given 11/29/2006 Influenza Virus 3Yrs & Over 60584 Given 08/29/2006 Tetanus And Diptheria (Td) For Adult Use Preservative Free Vital Signs Date Vital Result Comment 04/06/2017 Weight 154.50 lb Heart Rate 78 [...] Color Straw Urine Appearance Clear Urine Specific [place] 1.004 Low 1.010-1.030 Urine pH 7.0 5-9 [...] Stim 5.62 mcIU/mL High 0.34-5.60 8 Horm) [place] 0.51 mmol/L Low 0.6-1.2 9 Inr/Protime 09/14/2016 [...] See Comment 23 Lupus Anticoagulant Review By Arlin Kuo M <SEE NOTE> 24 CBC Auto Diff 06/28/2016 [...] Thrombo Time 51.4 seconds High 26.0-36.3 PTT [place] 0.50 mmol/L Low 0.6-1.2 Urinalysis Profile 06/09/2016 Urine Color Yellow Urine Appearance Cloudy Urine Specific [place] 1.003 Low 1.010-1.030 Urine pH 6.0 5-9 [...] Cells % 0 Laboratory test finding 06/09/2016 [place] 0.55 mmol/L Low 0.6-1.2 TSH (Thyroid Stim [...] 97.7 >60 36 Laboratory test finding 01/23/2016 [place] 0.50 mmol/L Low 0.6-1.2 37 TSH (Thyroid Stim Horm) 2.24 mcIU/mL 0.34-5.60 38 Urinalysis Profile 01/23/2016 Urine Color Colorless Urine Appearance Clear Urine Specific [place] 1.003 Low 1.010-1.030 Urine pH 7.0 5-9 [...] Color Straw Urine Appearance Clear Urine Specific [place] 1.003 Low 1.010-1.030 Urine pH 7.0 5-9 [...] Cell Present Absent Laboratory test finding 07/08/2015 [place] 0.53 mmol/L Low 0.6-1.2 46 CBC No [...] Color Straw Urine Appearance Clear Urine Specific [place] 1.004 Low 1.010-1.030 Urine pH 7.0 5-9 Urine Urobilinogen Negative Negative Urine Ketones Negative Negative Urine Protein Negative Negative Urine Leukocytes Negative Negative Urine Blood Negative Negative Urine Nitrite Negative Negative Urine Bilirubin Negative Negative Urine Glucose Negative Negative Ua Routine 07/09/2014 Ua Specific [place] 1.000 Ua PH 6.0 Ua Color yellow [...] 83.9 >60 52 Laboratory test finding 06/24/2014 [place] 0.47 mmol/L Low 0.6-1.2 TSH (Thyroid Stimulating [...] Color Straw Urine Appearance Clear Urine Specific [place] 1.003 Low 1.010-1.030 Urine pH 7.0 5-9 [...] Color Straw Urine Appearance Clear Urine Specific [place] 1.005 Low 1.010-1.030 Urine pH 7.0 5-9 [...] 58 Urine Appearance Clear 58 Urine Specific [place] 1.006 Low 1.010-1.030 58 Urine Esterase Negative [...] >60 59, 64 Laboratory test finding 07/10/2013 [place] 0.75 mmol/L 0.6-1.2 59 TSH (Thyroid Stimulating [...] Negative 59, 67 Laboratory test finding 12/28/2012 [place] 0.6 mmol/L 0.5-1.5 Urinalysis W/Microscopic 12/28/2012 Urine Color Yellow Urine Appearance Clear Urine Specific [place] 1.008 Low 1.010-1.030 Urine Esterase Trace Negative [...] 107.0 >60 73 Laboratory test finding 05/30/2012 [place] 0.7 mmol/L 0.5-1.5 TSH (Thyroid Stimulating Horm) [...] A1c 5.3 % Less than 6.0 80 [place] 0.6 mmol/L 0.5-1.5 Laboratory test finding 11/21/2011 [...] test finding 11/10/2010 TSH 0.77 MIU/ML 0.34-5.60 [place] 0.8 mmol/L 0.5-1.5 Urinalysis W/Microscopic 11/10/2010 Ua Color YELLOW Yellow Appearance-Urine CLEAR Clear Specific [place]-Ur 1.004 Low 1.010-1.030 Esterase-Urine TRACE Negative Nitrite NEGATIVE Negative Vqupxccougkh-Mj-YKY NEGATIVE Negative Protein-Urine NEGATIVE Negative PH-Urine 7.5 [...] test finding 10/21/2009 TSH 1.09 MIU/ML 0.34-5.60 [place] 0.8 mmol/L 0.5-1.5 Urinalysis W/Microscopic 10/16/2009 Ua Color YELLOW Yellow Appearance-Urine CLEAR Clear Specific [place]-Ur 1.005 Low 1.010-1.030 Esterase-Urine 1+ Negative Nitrite NEGATIVE Negative Pmupvmazoyzx-Ht-IMN NEGATIVE Negative Protein-Urine NEGATIVE Negative PH-Urine 6.5 5-9 Blood-Urine NEGATIVE Negative Ketones-Urine NEGATIVE Negative Bilirubin-Ur NEGATIVE Negative Glucose-Urine NEGATIVE Negative WBC-Urine 5-10 0-5 RBC-Urine 0-5 0-2 Epith Cells-Ur RARE None Bacteria-Urine TRACE None Amorphous Sed-U TRACE None Urine Culture & Sensitivi 10/16/2009 Urine Culture Sensitivi NG 104 1 SEE RESULT BELOW Name: CARLENE MONDRAGON Mo : [address]: Elif Luevano MD Acct: [id number] Unit: [id number] AGE: 71 Location: [facility] Re03/24/17 SEX: F Status: REG REF SPEC: [id number] JOAQUINA: 03/24/1745 [facility] DR: Elif Luevano MD REQ: [id number] RECD: 03/24/17 STATUS: COMP _ SOURCE: URINE SPDESC: ORDERED: Urine Culture Procedure Result Reported Site Urine Culture Final 03/25/17- 1230 ML No Growth (<1,000 CFU/mL) * ML - MAIN LAB ([facility]) . END OF REPORT * ML=Testing performed at Main Lab DEPARTMENT OF PATHOLOGY, [address] [place] [address] Jimbo Pratt M.D. Director [facility] # [id number] 2 Because ethnic data is not always [...] This test has been modified from the loan inspector's instructions. Its performance characteristics were determined by [facility] in a manner consistent with CLIA requirements. This test has not been cleared or approved by the U.S. Food and Drug Administration. 12 ADDITIONAL INFORMATION This test has been modified from the loan inspector's instructions. Its performance characteristics were determined by [facility] in a manner consistent with CLIA requirements. This test has not been cleared or approved by the U.S. Food and Drug Administration. 13 ADDITIONAL INFORMATION This test has been modified from the loan inspector's instructions. Its performance characteristics were determined by [facility] in a manner consistent with CLIA [...] not reviewed by physician. Test Performed by: [address] [address] 15 ADDITIONAL INFORMATION This test has been modified from the loan inspector's instructions. Its performance characteristics were determined by [facility] in a manner consistent with CLIA requirements. This test has not been cleared or approved by the U.S. Food and Drug Administration. Test Performed by: [address] [address] 16 Test Performed by: [address] [address] 17 ADDITIONAL INFORMATION This test has been modified from the loan inspector's instructions. Its performance characteristics were determined by [facility] in a manner consistent with CLIA requirements. This test has not been cleared or approved by the U.S. Food and Drug Administration. Test Performed by: [address] [address] 18 ADDITIONAL INFORMATION This test was developed and its performance characteristics determined by [facility] in a manner consistent with CLIA requirements. This test has not been cleared or approved by the U.S. Food and Drug Administration. 19 Test Performed by: [address] [address] 20 Test Performed by: [address] [address] 21 Test Performed by: [address] [address] 22 REFERENCE VALUE 10.3 - 12.8 23 [...] 24 Arlin Kuo M.D. Test Performed by: [address] [address] 25 SEE RESULT BELOW Name: CARLENE MONDRAGON : [address]: Vinay Chen MD Acct: [id number] Unit: [id number] AGE: 70 Location: ED Re06/09/16 SEX: F Status: DEP ER SPEC: [id number] JOAQUINA: 06/09/[address]: Vinay Chen MD REQ: [id number] RECD: 06/09/16 STATUS: TANG METCALF DR: Elif Luevano MD _ SOURCE: URINE SPDESC: ORDERED: Urine Culture Procedure Result Reported Site Urine Culture Final 06/10/16- 1614 ML No growth of clinically significant organisms * ML - MAIN LAB ([facility]) . END OF REPORT * ML=Testing performed at Main Lab DEPARTMENT OF PATHOLOGY, [address] [place] [address] Jimbo Pratt M.D. Director [facility] # [id number] 26 >100 to <200 pg/mL: likely compensated congestive heart failure (CHF) 200 to 400 pg/mL: likely moderate CHF >400 pg/mL: likely moderate to severe CHF 27 [facility] Severe Sepsis and Septic Shock Management [...] 30 99th percentile=0.04 ng/mL Troponin results at [facility] and [facility] are not interchangeable. 31 Because ethnic [...] High: >189 mg/dL 45 Test Performed by: [facility] - [address] [address] Computer Analyst: Vinay Bojorquez II, M.D., Ph.D. 46 FASTING 10 HOUR DUE IN June RUN DATE: 06/26/14 [facility] LAB LIVE PAGE 1 RUN TIME: [address] [place] [address] Specimen Inquiry Name: CARLENE MONDRAGON : [address]: Elif Luevano MD Acct: [id number] Unit: [id number] AGE: 68 Location: LAB Re06/24/14 SEX: F Status: REG REF SPEC: [id number] JOAQUINA: 06/24/14-[address]: Elif Luevano MD REQ: [id number] RECD: 06/24/14 STATUS: COMP _ SOURCE: URINE SPDESC: ORDERED: Urine Culture QUERIES: Provider Requisition # [id number] Procedure Result Verified Site Urine Culture Final 06/26/14- 164 ML Organism 1 NORMAL TITO Lismore Count 10-25,000 (Moderate) CFU/ML * ML - [facility] ([facility]) . END OF REPORT * ML=Testing performed at [facility] Lab DEPARTMENT OF PATHOLOGY, [address] [place] [address] Jimbo Pratt M.D. Director [facility] # [id number] 48 Desirable <150 Borderline high 150-199 High [...] <15 (or dialysis) 56 RUN DATE: 01/25/14 [facility] LAB LIVE PAGE 1 RUN TIME: 7593 [address] [place], [place] [address] Specimen Inquiry Name: CARLENE MONDRAGON : [address]: Filiberto Kc NP Acct: [id number] Unit: [id number] AGE: 68 Location: [facility] Re01/20/14 SEX: F Status: REG REF SPEC: [id number] JOAQUINA: 01/20/[address]: Filiberto Kc NP REQ: [id number] RECD: 01/20/14 STATUS: TANG METCALF DR: Elif Tijerina MD _ SOURCE: BLOOD,VENO SPDESC: ORDERED: Blood Cult QUERIES: Medent Number [id number] Procedure Result Verified Site Aerobic Culture Bottle Final 01/25/14- 1450 ML No Growth Day 5 Anaerobic Culture Bottle Final 01/25/14- 1450 ML No Growth Day 5 END OF REPORT * ML=Testing performed at Main Lab DEPARTMENT OF PATHOLOGY, [facility] [employer] [place], [place] [address] Jimbo Pratt M.D. Director [facility] # [id number] 57 RUN DATE: 01/22/14 [facility] LAB LIVE PAGE 1 RUN TIME: 913 [facility] [employer] [place], [place] [address] Specimen Inquiry Name: GIANCARLOCARLENE Mo : [address]: Filiberto Kc NP Acct: [id number] Unit: [id number] AGE: 68 Location: [facility] Re01/20/14 SEX: F Status: REG REF SPEC: [id number] JOAQUINA: 01/20/14-14[address] [facility] [address]: Filiberto Kc CONCRETE CURER REQ: [id number] RECD: 01/20/14 STATUS: TANG METCALF DR: Elif Tijerina MD _ SOURCE: URINE SPDESC: ORDERED: Urine Culture QUERIES: Medent Number [id number] Procedure Result Verified Site Urine Culture Final 01/22/14- 912 ML Organism 1 NORMAL TITO [place]ism[place] Count 25-50,000 (Moderate) CFU/ML END OF REPORT * ML=Testing performed at Main Lab DEPARTMENT OF PATHOLOGY, [address] [place] [address] Jimbo Pratt M.D. Director [facility] # [id number] 58 WITH MICROSCOPIC 59 FASTING 60 Desirable [...] the CDC guidelines. 67 Test Performed by: [place] [address] Computer Analyst: Austin Vega III, M.D. 68 Because ethnic [...] REFERENCE VALUE -- Negative Test Performed by: [place] [address] Computer Analyst: Austin Vega III, M.D. 72 FASTING 73 [...] normal population are 25-80 Test Performed by: [place] [address] Computer Analyst: Austin Vega III, M.D. 76 Desirable: Less than 200 MG/DL Borderline-High Risk: 200-239 MG/DL High-Risk: 240 MG/DL and over 77 HDL Interpretation: Undesirable: High Risk: Less than 40 MG/DL Desirable: Low Risk: Greater than 60 MG/DL 78 A metabolite of Naproxen, O-desmethylnaproxen, has been shown to interfere with the [place] method for measuring total bilirubin. Samples from [...] and in selective patients <6.0%.Please refer to [place] [employer] Diabetic care guidelines for further information. 81 Lymphopenia % 82 Neutrophilia % Lymphopenia % 83 ---- RUN DATE: 03/24/11 [facility] NMI LIVE PAGE 1 RUN TIME: 1239 Specimen Inquiry RUN USER: INTERFACE -- Name: KOKICRISTHIANCARLENE#: [id number] Status: REG REF Re03/22/11 Age/Sex: 65/F Unit#: [id number] Location: [facility] : 41 -- Specimen: [id number] FAUSTINO Spec Date: 03/22/[address]: Paulo sevilla MD Spec Type: SURGICAL P Received: 03/23/11-8942 Copies to: Elif larsen MD SPECIMEN 1) [...] 03/24/11 1237 -- -- DEPARTMENT OF PATHOLOGY, [address] [place] [address] [facility] Permit #[id number] Jimbo Pratt M.D. Director Jonna Song M.D. Environmental Health Technologist Dir wagner -- 84 Neutrophilia % Lymphopenia % 85 Anion gap measurement may be of limited value in the presence of any alkalosis, especially in a combined acid base disorder. . 86 A metabolite of Naproxen, O-desmethylnaproxen, has been shown to interfere with the [place] method for measuring total bilirubin. Samples from [...] has been shown to interfere with the [place] method for measuring total bilirubin. Samples from [...] change was based on recommendations from the [place] [employer]. 98 Please note change in [...] Procedures Date CPT Code Description Status 12/23/2016 28290 EKG Tracing & Interpretation Completed 07/05/2016 Colonoscopy Completed 07/08/2015 Mammogram Completed 02/19/2015 30466 Repair Hernia Umbilical > 5 Yrs, Reducible Completed 02/02/2015 23928 EKG Tracing & Interpretation Completed 06/17/2014 25834 Diffusing Capacity Completed 06/17/2014 72365 Pulmonary Function><Bronchodil Completed 02/14/2014 Mammogram Completed 04/04/2013 Bone Mineral Density Test Completed 12/28/2012 Mammogram Completed 11/29/2012 92119 EKG Tracing & Interpretation Completed 12/20/2011 Mammogram Completed 03/22/2011 Colonoscopy Completed 12/16/2010 Mammogram Completed 07/09/2010 22406 Noninvasive Ear Or Pulse Oximetry For Oxygen Saturation Completed 05/04/2010 88406 Noninvasive Ear Or Pulse Oximetry For Oxygen Saturation Completed 04/27/2010 50121 Noninvasive Ear Or Pulse Oximetry For Oxygen Saturation Completed 04/19/2010 88643 Noninvasive Ear Or Pulse Oximetry For Oxygen Saturation Completed 04/14/2010 80230 Inhalation TX For Acute Airway Obstruction Completed W/Nebulizer/Inhaler 11/17/2009 Bone Mineral Density Test Completed 11/17/2009 Mammogram Completed 10/16/2009 84797 EKG Tracing & Interpretation Completed 10/08/2007 06370 EKG Tracing & Interpretation Completed 10/08/2007 72893 EKG Tracing & Interpretation Completed 10/19/2001 Colonoscopy Completed Encounters Type Date Location Provider CPT E/M Dx Office Visit 12/23/2016 [facility] Internal Elif Luevano 58624 Z01.818 3:20p Juany Morgan M.D. I10 D68.9 H26.9 J44.9 Office Visit 09/20/2016 3:20p [facility] Internal Elif Luevano 09691 R60.0 Medicine Mazin Morgan M.D. Office Visit 08/30/2016 11:00a [facility] Internal Elif Luevano 26462 L97.801 Medicine Mazin Morgan M.D. R60.0 Office Visit 07/21/2016 8:40a [facility] Internal Medicine Elif Luevano 63204 D68.9 - Cathy Herzog R60.0 I10 H02.534 Office Visit 06/14/2016 2:00p [facility] Internal Medicine Elif Luevano 06676 D64.9 - Cathy Herzog D68.9 Office Visit 06/06/2016 8:30a [facility] [address] R91.8 Services Of [facility] J44.9 Office Visit 05/13/2016 2:20p [facility] Internal Medicine Elif Luevano 73904 R91.8 - Cathy Herzog R60.0 Office Visit 04/18/2016 9:00a [facility] Internal Medicine Elif Luevano 63901 R74.0 - Cathy Herzog Z12.11 R91.8 I10 Office Visit 02/26/2016 7:30a [place] [address] J98.4 [facility] J44.9 Z87.891 Office Visit 02/11/2016 4:00p [facility] Internal Medicine Elif Luevano 79467 H61.21 - Cathy Herzog Office Visit 02/08/2016 3:20p [facility] Internal Medicine Elif Luevano 87599 Z00.00 - Cathy Herzog R91.1 Z12.11 E78.5 I10 F31.89 Z11.1 Office Visit 11/19/2015 10:00a [facility] Internal Elif Luevano, 13240 S81.002D Medicine Mazin Morgan M.D. F31.61 Z79.899 R91.1 Office Visit 11/02/2015 2:40p [facility] Internal Jagjit Dunaway, 58497 S81.002A Juany Retana Arrowradha Herzog Office Visit 10/13/2015 3:20p [facility] Internal Elif Luevano 93030 R23.8 Medicine - Cathy Herzog Office Visit 09/29/2015 10:40a [facility] Internal Elif Luevano 50041 H00.013 Medicine Mazin Morgan M.D. S81.801A R23.8 Office Visit 07/27/2015 10:20a [facility] Internal Medicine Elif Luevano M.D. 66289 I10 - Cathy R31.9 Z87.891 Office Visit 04/09/2015 4:00p [facility] Internal Medicine Elif Luevano 06602 R23.3 - Cathy Herzog Office Visit 10/20/2014 10:00a [facility] Internal Medicine Elif Luevano 15988 496 - Cathy Herzog 599.70 Office Visit 07/25/2014 9:00a [facility] Internal Medicine Elif Luevano M.D. 80164 496 - [place] 401.1 Office Visit 07/09/2014 10:20a [facility] Internal Medicine Elif Luevano 03736 401.1 - Cathy Herzog 599.70 496 Office Visit 01/27/2014 10:00a [facility] [place] [address] 780.60 [place] 794.8 V03.82 Office Visit 01/20/2014 1:30p [facility] [place] [address] 786.05 [place] 780.60 Office Visit 01/10/2014 1:40p [facility] Internal Medicine Elif Luevano 60250 V70.0 - Cathy Herzog 272.2 401.1 296.7 V76.12 496 486 782.3 v04.81 715.04 Office Visit 11/28/2013 1:20p [facility] Elif Luevano 27167 786.2 - [place] M.D. Office Visit 07/02/2013 11:20a [facility] Elif Luevano, 80702 401.1 - [place] M.D. 272.2 296.7 790.4 Office Visit 04/01/2013 10:00a [facility] Elif Luevano, 80224 401.1 - [place] M.D. 786.2 272.2 Office Visit 11/29/2012 10:20a [facility] Elif Bassem, 07592 V70.0 - [place] M.D. 401.1 272.2 296.7 V76.10 V04.81 Office Visit 10/05/2012 3:20p [facility] Elif Bassem, 86045 782.3 - [place] M.D. Office Visit 09/19/2012 10:40a [facility] Shana Dela Cruz, N.P. 12374 682.6 - [place] Office Visit 09/07/2012 10:40a [facility] Shana Dela Cruz, N.P. 69459 682.6 - [place] Office Visit 06/04/2012 9:20a [facility] Elif Bassem, 84893 401.1 - [place] M.D. 496 Office Visit 04/03/2012 10:00a [facility] Elif Bassem, 40269 401.1 - [place] M.D. 296.7 Office Visit 11/28/2011 10:20a [facility] Elif Bassem, 32247 V70.0 - [place] M.D. 496 401.1 V76.10 280.8 244.9 272.2 V04.81 Office Visit 04/25/2011 11:40a [facility] Elif aBssem, 25781 401.1 - [place] M.D. 496 280.8 V06.1 Office Visit 07/09/2010 9:00a DO Not Use [employer] Elif Bassem, 24121 496 M.D. 401.1 272.0 Office Visit 05/04/2010 2:30p DO Not Use Elif Cotton, 88381 496 [employer] M.D. Office Visit 04/27/2010 9:30a DO Not Use Shana Dela Cruz, N.P. 74946 496 [employer] Office Visit 04/19/2010 9:30a DO Not Use Elifradha Luevano, 63071 496 [employer] M.D. Office Visit 04/14/2010 11:30a DO Not Use Shana Dela Cruz, N.P. 52760 466.0 [employer] Office Visit 10/16/2009 10:15a DO Not Use Elif Cotton, 88712 V70.0 [employer] M.D. 401.1 244.9 296.7 272.0 496 796.9 V03.82 Office Visit 04/21/2009 9:30a DO Not Use RadShelby saaba, 13294 244.9 [employer] M.D. 401.1 296.7 Office Visit 10/13/2008 9:15a DO Not Use RadomsShelby dumonta, 79801 V70.0 [employer] M.D. 493.90 272.0 401.1 244.9 V04.81 Office Visit 04/07/2008 9:15a DO Not Use RadomsShelby dumonta, 52310 244.9 [employer] M.D. 272.0 496 401.1 Office Visit 10/08/2007 9:45a DO Not Use RadomsShelby dumonta, 29299 V70.0 [employer] M.D. 244.9 272.0 401.1 296.7 Office Visit 07/02/2007 9:00a DO Not Use RadShelby saaba, 12773 244.9 [employer] M.D. 272.0 401.1 Office Visit 04/02/2007 9:00a DO Not Use RadomsShelby dumonta, 85975 272.0 [employer] M.D. 244.9 296.7 401.1 Office Visit 01/15/2007 9:45a DO Not Use RadShelby saaba, 55531 296.7 [employer] M.D. 401.1 Office Visit 12/22/2006 12:45p DO Not Use RadJasmin saab, 46269 782.3 [employer] M.D. 401.1 Office Visit 11/29/2006 3:45p DO Not Use RadomskiShelbya, 92686 599.0 [employer] M.D. 496 401.1 V04.81 Office Visit 11/27/2006 2:00p DO Not Use Radomski Jasmin, 97292 781.0 [employer] M.D. 780.79 296.7 786.2 Office Visit 10/04/2006 9:30a DO Not Use RadomskiShelbya, 70552 244.9 [employer] M.D. 296.7 401.1 V70.0 Office Visit 05/29/2006 9:15a DO Not Use Radomski, Jasmin, 36729 493.90 [employer] M.D. 466.0 496 401.1 Office Visit 04/10/2006 9:45a DO Not Use RadomskiShelbya, 02564 493.90 [employer] M.D. 466.0 401.1 Office Visit 03/29/2006 9:45a DO Not Use RadomskiShelbya, 43788 466.0 [employer] M.D. 401.1 493.90 Office Visit 03/10/2006 1:00p DO Not Use Radomski Jasmin, 41429 381.4 [employer] M.D. 465.9 Office Visit 09/27/2005 8:45a DO Not Use RadomsShelby dumonta, 42424 401.1 [employer] M.D. 272.0 244.9 496 Plan of Care Future Appointment(s):04/10/2017 11:40 am - Elif Luevano M.D. at [facility]07/11/2017 2:20 pm - Elif Luevano M.D. at [facility]06/06/2017 9:00 am - Lydia Mayen MD at [facility]04/06/2017 - Filiberto Kc NPL03.115 Cellulitis of right lower limbNew Medication:Cephalexin 500 mgComments:I am prescribing an antibiotic today. Complete the entire course.Continue to elevate the leg when able.It is important to apply moisturizer several times daily to keep the skin soft and pliable. You can try the Tubigrip that we discussed which may be easier than using the stocking.If the redness continues to spread beyond the line I gris or if you are feeling worse you should go to the hospital.Follow up:F/U Monday BorisZ or CHRISTI Monday 04/10.
[2017-04-22] MEDS ORDERED: Acetaminophen TAB* 325 MG PO ONE (19:16)
[2017-04-22] MEDS ORDERED: Cephalexin CAP* 500 MG PO ONE (19:25)
[2017-04-22 19:38] VITALS: BP 160/88
--- NOTE | 2017-04-22 21:55 | ED ---
Amol Florentino Sixian, scribed for Vinay Chen MD on 04/22/17 at 1722 . Laceration/Wound HPI - HPI Summary HPI Summary: This patient is a 71 year old F presenting to ED with a chief complaint of left knee laceration and left elbow skin tear s/p fall since 1706 today. [facility] and lacerated her right knee and elbow. The patient rates the pain 0/10 in severity. Symptoms aggravated and alleviated by nothing. Patient reports dizziness and lightheadedness. - History of Current Complaint Stated Complaint: FALL Time Seen by Provider: 04/22/17 16:58 Hx Obtained From: Patient Onset/Duration: Gradual Onset, Lasting Hours, Still Present Aggravating: Nothing Alleviating: Nothing Current Severity: None Pain Intensity: 0 Pain Scale Used: 0-10 Numeric - Allergy/Home Medications Allergies/Adverse Reactions: Allergies Allergy/AdvReac Type Severity Reaction Status Date / Time No Known Allergies Allergy Verified 01/09/17 10:04 PMH/Surg Hx/FS Hx/Imm Hx Endocrine/Hematology History: Reports: Hx Thyroid Disease - HYPOTHYROIDISM, Hx Anemia - HISTORY OF, BLOOD CLOTTING DISORDER Cardiovascular History: Reports: Hx Hypertension, Other Cardiovascular Problems/ Disorders - WEARS TEDS, LOWER EXTREMITY EDEMA Respiratory History: Reports: Hx Chronic Obstructive Pulmonary Disease (COPD), Hx Sleep Apnea - USES OXYGEN 2 L/M WHILE SLEEPING, Other Respiratory Problems/ Disorders - COPD GI History: Reports: Hx Gastroesophageal Reflux Disease - TAKES RX Musculoskeletal History: Reports: Hx Arthritis - FINGERS AND HANDS Denies: Hx Osteoporosis Sensory History: Reports: Hx Cataracts - BILATERAL WITH MACULAR DEGENERATION, Hx Contacts or Glasses - GLASSES, Hx Hearing Aid - BILATERAL Opthamlomology History: Reports: Hx Cataracts - BILATERAL WITH MACULAR DEGENERATION, Hx Contacts or Glasses - GLASSES Neurological History: Reports: Other Neuro Impairments/Disorders - BIPOLAR DISORDER Psychiatric History: Reports: Hx Anxiety - CONTROL WITH MEDS, Hx Depression - Cancer History Hx Chemotherapy: No Hx Radiation Therapy: No - Surgical History Surgery Procedure, Year, and Place: HYSTERECTOMY- 1988- [facility] [place]. 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 Left knee laceration Head: normal Eyes: EOMI, MOJGAN ENT: normal Neck: supple, nontender Respiratory: CTA, breath sounds present Cardiovascular: RRR Abdomen: soft, nontender Bowel: present Musculoskeletal: normal, strength/ROM intact Neurological: normal, sensory/motor intact, A&O x3 Psychological: affect/mood appropriate Triage Information Reviewed: Yes Vital Signs On Initial Exam: Initial Vitals Temp Pulse Resp BP Pulse Ox 98.1 F 65 18 171/94 94 04/22/17 17:04 04/22/17 17:04 04/22/17 17:04 04/22/17 17:04 04/22/17 17:04 Vital Signs Reviewed: Yes Skin: Positive: Other - LEFT ELBOW SKIN TEAR 3CM. LEFT KNEE INJURY IS A COMBINATION OF A 4CM LACERATION AND 8CM SKIN TEAR. Diagnostics - Vital Signs Vital Signs Temp Pulse Resp BP Pulse Ox 04/22/17 17:04 98.1 F 65 18 171/94 94 - Laboratory Lab Statement: Any lab studies that have been ordered have been reviewed, and results considered in the medical decision making process. - Radiology Knee XR Radiology Interpretation Completed By: Radiologist - O ACUTE OSSEOUS INJURY. IF SYMPTOMS PERSIST, RECOMMEND REPEAT IMAGING. ED physician has reviewed this radiology report. Laceration Repair Course/Dx - Course Course Of Treatment: BP noted and advised to follow up with PCP. Medications reviewed. LEFT ELBOW SKIN TEAR REPAIR BY NURSING. LEFT KNEE LACERATION REPAIR DONE BY MID LEVEL. F/U PMD; RETURN IF WORSE. - Clinical Impression Provider Diagnoses: Hypertension, Contusion of left knee, Laceration of left leg, Skin tear of elbow without complication Discharge - Discharge Plan Condition: Stable Disposition: HOME Prescriptions: Cephalexin CAP* [Keflex CAP*] 500 mg PO TID #20 cap Patient Education Materials: Care For Your Stitches (ED), Laceration (ED), Knee Pain (ED), Skin Tear (ED) Referrals: Elif Luevano MD [Primary Care Provider] - Additional Instructions: FOLLOW UP WITH YOUR DOCTOR. SUTURES OUT IN 8-10 DAYS. RETURN TO THE EMERGENCY DEPARTMENT FOR ANY WORSENING OF YOUR CONDITION OR QUESTIONS OR CONCERNS. YOUR BLOOD PRESSURE WAS ELEVATED TODAY; FOLLOW UP WITH YOUR PRIMARY CARE DOCTOR WITHIN THE NEXT 1 WEEK. The documentation as recorded by the [facility] Sixian accurately reflects the service I personally performed and the decisions made by me, Vinay Chen MD.
--- NOTE | 2017-04-22 22:53 | PN ---
Progress Note - Progress Note Date of Service: 04/22/17 Note: Laceration repair: Laceration approximately 4 cm with another 8 cm skin tear with a total of 12 cm skin avulsion to the left leg just below the knee from falling this afternoon. Cleansed the wound well with normal saline using 60 cc. Patient tolerated well. 2 ml lidocaine used as anesthetic to the wound. Patient tolerated well. 7 sutures of 5-0 Prolene using simple interrupted to the lateral portion of the knee. Cerra form and Surgicel applied to the bleeding wound with effect. 4 x 4 Kerlix with surrounding Coban an Ever wrap applied. Patient tolerated well and is okay for discharge at this time. Disposition: Home Condition: Good
== END 2017-04-22 19:35 | disposition home or self-care (01) ==
LOC: ED 16:55
DX: S81.012A Laceration without foreign body, left knee, initial encounter (principal); S51.012A Laceration without foreign body of left elbow, initial encounter; W19.XXXA Unspecified fall, initial encounter; Y93.54 Activity, bowling; Y92.39 Other specified sports and athletic area as the place of occurrence of the external cause; Z87.891 Personal history of nicotine dependence
CPT/HCPCS: 12004; 99284; A9270-GY

== ENCOUNTER 2017-04-30 11:13 | Emergency (ER) | payer MEDICARE, MEDICAID ==
[2017-04-30 11:23] VITALS: BP 139/40
--- NOTE | 2017-04-30 11:43 | UC ---
Skin Complaint HPI - HPI Summary HPI Summary: This nice 71-year-old lady fell 8 days ago of bubbling she sustained a laceration to her left knee and a skin tear to her left elbow her left elbow was dressed with Telfa. Stitches required in her left knee has Prolene sutures in it and and distal to that for approximately 10 cm there is a skin flap from a skin tear that is not seated itself down on to the wound bed this patient has not been off of her like she's not been immobilized the sutures do not appear to be well approximated - History of Current Complaint Chief Complaint: UCSkin Time Seen by Provider: 04/30/17 11:25 Stated Complaint: REMOVE STITCHES Hx Obtained From: Patient Hx From Patient Unobtainable Due To: Dementia ?: No Onset/Duration: Sudden Onset, Lasting Days - 8, Still Present Timing: Constant Onset Severity: Moderate Current Severity: Moderate Location: Discrete - left knee left flores left elbow Aggravating Factor(s): Nothing Alleviating Factor(s): Nothing Associated Signs & Symptoms: Positive: Negative Related History: Trauma - Allergy/Home Medications Allergies/Adverse Reactions: Allergies Allergy/AdvReac Type Severity Reaction Status Date / Time No Known Allergies Allergy Verified 04/30/17 11:22 Review of Systems Constitutional: Negative Skin: Negative, Other - Skin tear on her left elbow and left flores that are not well approximated and have not seated onto the wound bed there is also no granulated tissue forming stitches in her left knee which did not get appear well approximated she's only 8 days out for sutures of her knee Eyes: Negative ENT: Negative Respiratory: Negative Cardiovascular: Negative Gastrointestinal: Negative Genitourinary: Negative Motor: Negative Neurovascular: Negative Musculoskeletal: Negative Neurological: Negative Psychological: Negative Is Patient Immunocompromised?: No All Other Systems Reviewed And Are Negative: Yes PMH/Surg Hx/FS Hx/Imm Hx Previously Healthy: No - MRDD Endocrine History: Dyslipidemia Cardiovascular History: Hypertension GI/ History: Gastroesophageal Reflux Psychological History: Bipolar Disorder - Surgical History Surgical History: Yes Surgery Procedure, Year, and Place: HYSTERECTOMY- 1988- [facility] [place]. 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 Negative: Trismus , Muffled voice - 44, Hoarse voice Dental Exam: Normal Neck exam: Normal Neck: Positive: Supple, Nontender, No Lymphadenopathy Respiratory Exam: Normal Respiratory: Positive: Chest non-tender, Lungs clear, Normal breath sounds, No respiratory distress, No accessory muscle use Cardiovascular Exam: Normal Cardiovascular: Positive: RRR, No Murmur, Pulses Normal, Brisk Capillary Refill Musculoskeletal Exam: Normal Musculoskeletal: Positive: Strength Intact, ROM Intact, No Edema Neurological Exam: Normal Neurological: Positive: Alert, Muscle Tone Normal Psychological Exam: Normal Skin Exam: Normal Skin: Positive: Other - Sutures intact on her left knee skin tear on left flores tissue was not approximated there is no tissue granulation and 1 bed skin tear on left elbow again tissue not well approximated and there is no granulating tissue. The wound bed on both of the skin tears is bright red with some areas of bleeding Course/Dx - Course Course Of Treatment: Vaseline gauze was applied to all the wounds the wounds were wrapped with Telfa and a Ever wrap patient advised to staff legs taken out of work advised for follow-up with [facility] phone message left at the wound center as well - Diagnoses Provider Diagnoses: Healing wounds left elbow left flores left knee sutures to come out and 4-5 days Discharge - Discharge Plan Condition: Stable Disposition: HOME Patient Education Materials: Laceration (ED), Skin Tear (ED) Referrals: [facility] [Outside] - As Soon As Possible Elif Luevano MD [Primary Care Provider] - If Needed Additional Instructions: Please call [facility] first thing Monday morning [facility] and establish a follow-up appointment with them. Her stitches need to come out in the next 4-6 days. wound care please change dressing 1 time daily use Vaseline gauze that we provided for you and then wrapped with a Telfa and an Ever. please ask the patient to stay off of her leg as much as possible.
== END 2017-04-30 11:50 | disposition home or self-care (01) ==
LOC: UCEAST 11:13
DX: S51.012D Laceration without foreign body of left elbow, subsequent encounter (principal); S81.812D Laceration without foreign body, left lower leg, subsequent encounter; S81.012D Laceration without foreign body, left knee, subsequent encounter; W19.XXXD Unspecified fall, subsequent encounter; E78.5 Hyperlipidemia, unspecified; I10 Essential (primary) hypertension; K21.9 Gastro-esophageal reflux disease without esophagitis; F31.9 Bipolar disorder, unspecified; Z87.891 Personal history of nicotine dependence
CPT/HCPCS: 99213; G0463

== ENCOUNTER 2017-09-28 12:07 | Emergency (ER) | payer MEDICARE, MEDICAID ==
--- OUTSIDE RECORDS SUMMARY | 2017-09-28 12:15 | XMS REPORT ---
:1945 External Reference #:[id number] Author Organization [facility] Address [address] [place] [address] [place] [address] Phone [phone] Care Team Providers Name Role Phone Elif Luevano MD Primary Care Physician Unavailable Payers Type Date Identification Numbers Payment Provider Subscriber Medicare Primary Effective: Policy Number: Medicare Carlene Mondragon 1975 [id number] PayID: [id number] [address] [place] [address] [place] Policy Number: [id number] Medicaid Carlene Mondragon PayID: [id number] [address] [place] [address] Problems Date Description Provider Status Onset: 12/21/2009 Chronic obstructive lung disease Elif Luevano M.D. Active Onset: 11/29/2012 Mixed hyperlipidemia Elif Luevano M.D. Active Onset: 11/29/2012 Hypothyroidism Elif Luevano M.D. Active Onset: 02/02/2015 Essential hypertension Elif Luevano M.D. Active Onset: 02/02/2015 Bipolar disorder Elif Luevano M.D. 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 Mary Gregg [phone]. 2. 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 Skilled Nursing caregiver Mary reported that the state would need to be contacted for major decisions Allergies, Adverse Reactions, Alerts Date Description Reaction Status Severity Comments 10/14/2009 No Known Drug Allergy active Medications Medication Date Status Form Strength Qnty SIG Indications Ordering Provider Felodipine ER 09/18 Active Tablets ER 10mg 30tab 1 by mouth I10 24HR s every day Mino Luevano Labetalol HCL 08/17 Active Tablets 200mg 60tab 1 PO bid I10 Elif s Mino Luevano Chlorthalidone 07/11 Active Tablets 25mg 30tab 1 by mouth I10 s every day Mino Luevano Bacitracin 09/13 Active Ointment 500Unit/G 28.40 apply to Elif (External) M 0gm skin twice Cotton, daily as M.D. needed Omeprazole 03/[address] 20mg 30cap Take 1 Cap Lydia s Capsule By MD Tiarra Mouth Every Morning And 1 Capsule By Mouth AT Bedtime Vitamin D 11/15 Active Tablets 1000Unit 90tab one daily Elif (Cholecalcifero s ferdinand Luevano M.D. Atorvastatin 09/07 Active Tablets 80mg 90tab take one Elif Calcium s tablet by Cotton, mouth every M.D. day Hearing Aid 02/27 Active Misc 4unit use as Elif Battery s directed Bassem hearing aid [facility] services. Incruse Ellipta 02/02 Active Aerosol 62.5mcg/I 30uni one J44.9 Elif nh ts inhalation Cotton, every day M.D. Spacer 07/25 Active 1unit for use J44.9 Elif s with Cotton, inhalers M.DSuzette Nebulizer 01/21 Active Kit QS for use 4 Elif Kit/Tubing/Mout times daily Bassem, hpiece as needed M.D. Tylenol 04/03 Active Tablets 325mg 120ta 1-2 by bs mouth every Bassem, 4-6 hrs as M.D. needed for pain Daily-Jairo 01/12 Active Tablets 90tab take one Elif /2010 s tablet by Cotton, mouth every M.D. day Trazodone HCL 10/16 Active Tablets 50mg 30tab 1 tablet Elif /2010 s once daily Bassem, at bedtime M.DSuzette [place] 10/14 Active Capsules 300mg 60cap 1 by mouth Elif Carbonate s twice daily Mino Luevano Flovent HFA 10/01 Active Aerosol 220mcg/Ac 3unit inhale two Elif t s puffs by Cotton, mouth twice M.D. a day Abilify Active Tablets 5mg 30tab 1 tablet Elif s once a day Mino Luevano Fluticasone Active Suspension 50mcg/Act 3unit use two Elif Propionate s sprays into Cotton, each M.D. nostril once daily Oxygen Active 2 liters at Unknown /0000 hs Levothyroxine Active Tablets 150mcg 90tab take one Elif Sodium s tablet by Cotton, mouth every M.D. day Multi Complete Active Capsules daily Unknown /0000 Felodipine ER 09/12 Hx Tablets ER 2.5mg 30tab 1 by mouth 24HR s every day Mazin Luevano.Bj 09/18 Labetalol HCL 08/17 Hx Tablets 300mg 1 PO bid I10 Bassem - M.DSuzette 08/17 Furosemide 04/19 Hx Tablets 20mg 45tab 1 by mouth R60.0 s 3 days a Bassem - week M.DSuzette 07/11 Felodipine ER 04/19 Hx Tablets ER 5mg 30tab 1 by mouth 24HR s every day Mazin Luevano M.Bj 09/18 Cephalexin 04/06 Hx Tablets 500mg 9tabs take one L03.115 tablet Cotton, - every 8 M.D. 04/13 hours for /2017 additional 3 days (total 10 days) Jobst Active 03/13 Hx Misc 1Pair For daily R60.0 Elif 20-30MMHG/Thigh use Cotton, High/Closed - M.D. Toe/Medium 06/05 Jobst Active 07/21 Hx Misc 2Pair For daily R60.0 Elif 15-20MMHG/Knee use Cotton, High/Closed - M.D. 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 12/03 Zostavax 02/15 Hx Solution 26631Flg/ 1unit 1 dose s/c Rec 0.65ML s Cotton, - M.D. 03/30 Lipitor 12/29 Hx Tablets 80mg 90tab take one s tablet by Cotton, - mouth every M.D. Jobst Active 10/24 Hx Misc 2unit for daily Elif 20-30MMHG/Knee s use Dx: r Cotton, High/Closed Toe - 60.0 M.D. 07/21 Jobst Relief 10/14 Hx Misc 1unit For daily Elif 20-30MMHG/Knee s use calf Cotton, High/Open Toe - 14" length M.D. 10/24 17" knee 02/21" Cephalexin 09/19 Hx Capsules 500mg 21cap 1 po tid 682.6 s for 7 days Varn, N.P. - 09/26 Amoxicillin/Cla 09/07 Hx Tablets 875-125mg 14tab one tablet 2.6 anat s by mouth Varn, N.P. Potassium - twice daily 09/14 for 7 days Lipitor 07/04 Hx Tablets 40mg 90tab Take One s Tablet By Cotton, - Mouth Every M.D. Tussin DM 04/03 Hx Syrup 100-10mg/ prn 5ML Cotton, - M.D. 07/02 Felodipine ER 04/03 Hx Tablets ER 10mg 90tab take one 24HR s tablet by Cotton, - mouth every M.D. Ferrous Sulfate 07/11 Hx Tablets 325(65Fe) 30tab [...] to once daily over 2-3 weeks Bag [place] 01/04 Hx apply to Elif /2011 feet but Cotton, - not between M.D. 01/04 toes bid. Silicone Toe 01/04 Hx use daily Elif Wrap Sleeve and remove Cotton, - at [...] Hx Solution 0.5-2.5(3 60uni 1 vial in [facility] [place]/Albuter )mg/3ML ts nebulizer [place], ol Sulfate - twice daily M.D. 05/04 Nebulizer 04/14 Hx 1unit use three s times daily Cotton, - as needed M.D. 05/04 Budesonide 04/14 Hx Suspension 0.5mg/2ML 60uni 2ml in [facility] Respules ts nebulizer [place], - twice daily M.D. 05/04 Multi-Vitamin/M 11/13 [...] Tablets 500mg 10tab 1 po qd Unknown /0000 s - 05/04 Guaifenesin-DM Hx Syrup 100-10mg/ 120cc 1-2 Elif /0000 5ML teaspoons Bassem, - every 4-6 M.D. 05/20 hours needed Prednisone Hx Tablets 20mg 10tab 1 tablet Unknown /0000 s twice a day - 05/04 Vitamin D Hx Capsules 1000Unit 30cap po qd Unknown /0000 s - 11/15 Gas-X Hx Chewtabs 80mg prn Unknown /0000 - 07/02 Amoxicillin/Pot Hx Tablets 875-125mg 20tab 1 po bid Unknown assium /0000 s Clavulanate - 10/05 Bacitracin Hx Ointment as needed Unknown /0000 - 09/13 Amoxicillin/Cla Hx Tablets 875-125mg one tablet Unknown vulanate /0000 by mouth Potassium - twice daily 10/12 for 10 days /2015 Labetalol HCL Hx Tablets 200mg 180ta take one I10 Elif /0000 bs tablet by Cotton, - mouth twice M.D. 08/17 a /2017 Cephalexin Hx Tablets 500mg take 1 by Unknown /0000 mouth three - times a day 12/21 x 7 /2016 Medications Administered in Office Medication Date Status Form Strength Qnty SIG Indications Ordering Provider PPD 02/08/20 Administered Injection Elif 16 Mino Luevano PPD 12/12/19 Administered Injection Romie Walker M.D. PPD 08/30/19 Administered Injection Fabby Walker M.D. PPD 08/30/19 Administered Injection Fabby Walker M.D. Immunizations CPT Code Status Date Vaccine Lot # [id number] Given 01/27/2014 Pneumococcal Conjugate Vaccine 13 Valent For [id number] Intramuscular Use 54628 Given 01/10/2014 Flu Vaccine Split Virus Preservative Free For [id number] Indiv 3Yr Older 18956 Given 11/29/2012 Flu Vaccine Split Virus Preservative Free For [id number] Indiv 3Yr Older Q2038 Given 11/28/2011 Fluzone Vaccine [id number] 15447 Given 04/25/2011 Tdap - Tetanus/Diptheria/Acellular Pertussis [id number] Q2035 Given 11/23/2010 Afluria Vaccine [id number] 38928 Given 12/05/2009 Influenza Virus 3Yrs & Over 25403 Given 10/16/2009 Pneumonia Vaccine 05964 Given 02/27/2009 Influenza Virus Vaccine, Pandemic Formulation 76663 Given 10/13/2008 Influenza Virus 3Yrs & Over 00201 Given 12/12/2007 Influenza Virus 3Yrs & Over 89440 Given 12/12/2007 Influenza Virus 3Yrs & Over 19534 Given 11/29/2006 Influenza Virus 3Yrs & Over 37205 Given 08/29/2006 Tetanus And Diptheria (Td) For Adult Use Preservative Free Vital Signs Date Vital Result Comment 09/18/2017 Height 59 inches 4'11" Weight 147.00 lb Heart Rate 66 /min BP Systolic Sitting 148 mmHg BP Diastolic Sitting 89 mmHg O2 % BldC Oximetry 95 % BMI (Body Mass Index) 29.7 kg/m2 08/17/2017 Height 59 inches 4'11" Weight 149.00 lb Heart Rate 65 /min BP Systolic Sitting 156 mmHg BP Diastolic Sitting 85 mmHg O2 % BldC Oximetry 95 % BMI (Body Mass Index) 30.1 kg/m2 07/11/2017 Height 59 inches 4'11" Weight 152.00 lb Heart Rate 68 /min BP Systolic 155 mmHg BP Diastolic 93 mmHg O2 % BldC Oximetry 96 % BMI (Body Mass Index) 30.7 kg/m2 06/06/2017 Height 59 inches 4'11" Weight 149.00 lb Heart Rate 68 /min BP Systolic Sitting 130 mmHg BP Diastolic Sitting 78 mmHg Respiratory Rate 14 /min O2 % BldC Oximetry 96 % BMI (Body Mass Index) 30.1 kg/m2 05/05/2017 Weight 153.00 lb Heart Rate 65 /min BP Systolic Sitting 120 mmHg BP Diastolic Sitting 60 mmHg Body Temperature 97.9 F O2 % BldC Oximetry 93 % 04/17/2017 Weight 156.50 lb Heart Rate 79 [...] Test Date Test Result H/L Range Note Basic Metabolic Panel 05/08/2017 Sodium 139 mmol/L 133-145 Potassium 4.0 mmol/L 3.5-5.0 Chloride 107 mmol/L 101-111 Co2 Carbon Dioxide 26 mmol/L 22-32 Anion Gap 6 mmol/L 2-11 Glucose 83 mg/dL 70-100 Blood Urea Nitrogen 17 mg/dL 6-24 Creatinine 0.79 mg/dL 0.51-0.95 BUN/Creatinine Ratio 21.5 High 8-20 Calcium 9.9 mg/dL 8.6-10.3 Egfr Non- 71.3 >60 Egfr 91.7 >60 1 Urinalysis Profile 03/24/2017 Urine Color Straw Urine Appearance Clear Urine Specific [place] 1.004 Low 1.010-1.030 Urine pH 7.0 5-9 [...] And 03/24/2017 Urine Culture SEE RESULT BELOW 2 Sensitivities Basic Metabolic Panel 03/24/2017 Sodium 142 mmol/L 133-145 Potassium 3.9 mmol/L 3.5-5.0 Chloride 109 mmol/L 101-111 Co2 Carbon Dioxide 29 mmol/L 22-32 Anion Gap 4 mmol/L 2-11 Glucose 80 mg/dL 70-100 Blood Urea Nitrogen 16 mg/dL 6-24 Creatinine 0.84 mg/dL 0.51-0.95 BUN/Creatinine Ratio 19.0 8-20 Calcium 9.9 mg/dL 8.6-10.3 Egfr Non- 66.5 >60 Egfr 85.5 >60 3 Lipid Profile (Trig/Chol/HDL) 03/24/2017 Triglycerides 60 mg/dL 4 Cholesterol 188 mg/dL 5 HDL Cholesterol 93.0 mg/dL 6 LDL Cholesterol 83 mg/dL 7 Laboratory test finding 03/24/2017 TSH (Thyroid Stim 5.62 mcIU/mL High 0.34-5.60 8 Horm) [place] 0.51 mmol/L Low 0.6-1.2 9 Comp Metabolic Panel 03/24/2017 Sodium 143 mmol/L [...] Egfr Non- 65.6 >60 Egfr 84.3 >60 10 Inr/Protime 09/14/2016 Inr 0.90 0.89-1.11 Laboratory test finding 09/14/2016 Partial Thrombo Time 48.2 seconds High 26.0-36.3 PTT PTT Mixing Studies 09/14/2016 PTT/Normal Control 35.7 seconds 26.0-36.3 PTT/After 1 HR Incubation 39.6 seconds High 26.0-36.3 PT/PTT Mixing Study Interp (SEE NOTE) 11 Factor 8 Profile 09/14/2016 Coagulation Factor VIII Activi 153 % 55 - 200 12 von Willebrand Factor Antigen 199 % 55 - 200 13 VonWillibrand Factor Activity 172 % 55 - 200 14 von Willebrand Panel Interp See Comment 15 Lupus Anticoagulant AB 09/14/2016 Lac Aptt Mix 1:1 43 sec 26 - 36 16 Lac DRVVT Mix Ratio 1.7 ratio 0.0 - 1.1 17 Lup Hexthrombin Time (Bovine) 19 sec 15 - 23 18 Platelet Neutralization 43 19 Platelet Neutraliz Buffer Cont 56 sec 20 Dil Austen Viper Jose Confirm 1.9 ratio 0.0 - 1.1 21 Special Coagulation Interp Performed 22 Prothrombin Time(Lac) 10.8 sec 23 Lac Inr 1.0 Lac Aptt 49 sec 26 - 36 Lac DRVVT Screen Ratio 2.0 ratio 0.0 - 1.1 Lupus Anticoagulant Interpreta See Comment 24 Lupus Anticoagulant Review By Brandee Martinez <SEE NOTE> 25 CBC Auto Diff 06/28/2016 White Blood Count [...] Thrombo Time 51.4 seconds High 26.0-36.3 PTT [place] 0.50 mmol/L Low 0.6-1.2 Laboratory test finding 06/09/2016 [place] 0.55 mmol/L Low 0.6-1.2 TSH (Thyroid Stim Horm) 1.34 mcIU/mL 0.34-5.60 B-Type Natriuretic Peptide BNP 23 pg/mL 26 Lactic Acid 1.0 mmol/L 0.5-2.0 27 CKMB 06/09/2016 CKMB ng/mL 4.1 ng/mL 0.6-6.3 Urinalysis Profile 06/09/2016 Urine Color Yellow Urine Appearance Cloudy Urine Specific [place] 1.003 Low 1.010-1.030 Urine pH 6.0 5-9 [...] And 06/09/2016 Urine Culture SEE RESULT BELOW 28 Sensitivities CBC Auto Diff 06/09/2016 White Blood [...] 29 Troponin-I (TnI) 0.00 ng/mL <0.04 30 Comp Metabolic Panel 06/09/2016 Sodium 136 mmol/L [...] Egfr Non- 71.5 >60 Egfr 92.0 >60 31 Comp Metabolic Panel 04/30/2016 Albumin 3.9 g/dL [...] Egfr Non- 67.6 >60 Egfr 86.9 >60 32 Lipid Profile (Trig/Chol/HDL) 04/07/2016 Triglycerides 95 mg/dL 33 Cholesterol 161 mg/dL 34 HDL Cholesterol 64.3 mg/dL 35 LDL Cholesterol 78 mg/dL 36 Comp Metabolic Panel 04/07/2016 Sodium 139 mmol/L [...] Egfr Non- 76.0 >60 Egfr 97.7 >60 37 Laboratory test finding 01/23/2016 [place] 0.50 mmol/L Low 0.6-1.2 38 TSH (Thyroid Stim Horm) 2.24 mcIU/mL 0.34-5.60 39 Urinalysis Profile 01/23/2016 Urine Color Colorless Urine Appearance Clear Urine Specific [place] 1.003 Low 1.010-1.030 Urine pH 7.0 5-9 Urine Urobilinogen Negative Negative Urine Ketones Negative Negative Urine Protein Negative Negative Urine Leukocytes Negative Negative Urine Blood Negative Negative Urine Nitrite Negative Negative Urine Bilirubin Negative Negative Urine Glucose Negative Negative Laboratory test finding 11/18/2015 Blood Urea Nitrogen BUN 16 mg/dL 6-24 Creatinine 11/18/2015 Creatinine 0.80 mg/dL 0.51-0.95 Egfr Non- 70.5 >60 Egfr 90.7 >60 40 Lipid Profile (Trig/Chol/HDL) 07/08/2015 Triglycerides 87 mg/dL 41 Cholesterol 174 mg/dL 42 HDL Cholesterol 71.5 mg/dL 43 LDL Cholesterol 85 mg/dL 44 Comp Metabolic Panel 07/08/2015 Sodium 141 mmol/L [...] Egfr Non- 72.8 >60 Egfr 93.6 >60 45 Laboratory test finding 07/08/2015 [place] 0.53 mmol/L Low 0.6-1.2 46 CBC No Diff 07/08/2015 White Blood Count [...] Antitrypsin A1a 125 mg/dL 100 - 190 47 Urinalysis Profile 07/08/2015 Urine Color Straw Urine Appearance Clear Urine Specific [place] 1.003 Low 1.010-1.030 Urine pH 7.0 5-9 [...] Color Straw Urine Appearance Clear Urine Specific [place] 1.004 Low 1.010-1.030 Urine pH 7.0 5-9 Urine Urobilinogen Negative Negative Urine Ketones Negative Negative Urine Protein Negative Negative Urine Leukocytes Negative Negative Urine Blood Negative Negative Urine Nitrite Negative Negative Urine Bilirubin Negative Negative Urine Glucose Negative Negative Ua Routine 07/09/2014 Ua Specific [place] 1.000 Ua PH 6.0 Ua Color yellow Ua Appera clear Ua WBC neg Ua Protein neg Ua Glucose neg Ua Ketones neg Ua Bilirubin neg Ua Urobilinogen normal Ua Nitrite neg Ua Occult Blood neg Urine Culture And Sensitivities 06/24/2014 Urine Culture (SEE NOTE) 48 Lipid Profile (Trig/Chol/HDL) 06/24/2014 Triglycerides 91 mg/dL 49 Cholesterol 171 mg/dL 50 HDL Cholesterol 62.6 mg/dL 51 LDL Cholesterol 90 mg/dL 52 Comp Metabolic Panel 06/24/2014 Sodium 140 mmol/L [...] Egfr Non- 65.2 >60 Egfr 83.9 >60 53 Laboratory test finding 06/24/2014 [place] 0.47 mmol/L Low 0.6-1.2 TSH (Thyroid Stimulating [...] Color Straw Urine Appearance Clear Urine Specific [place] 1.003 Low 1.010-1.030 Urine pH 7.0 5-9 [...] Egfr Non- 69.9 >60 Egfr 89.9 >60 54 Urine Culture And Sensitivities 01/20/2014 Urine Culture (SEE NOTE) 55 Urinalysis Profile 01/20/2014 Urine Color Straw Urine Appearance Clear Urine Specific [place] 1.005 Low 1.010-1.030 Urine pH 7.0 5-9 [...] 137 mmol/L 133-145 Potassium 3.9 mmol/L 3.5-5.0 56 Chloride 104 mmol/L 101-111 Co2 Carbon Dioxide [...] Egfr Non- 68.0 >60 Egfr 87.4 >60 57 Laboratory test finding 01/20/2014 Blood Culture (SEE NOTE) 58 CBC Auto Diff 01/20/2014 White Blood Count [...] 0-2 Nucleated Red Blood Cells % 0 Urinalysis Profile 07/11/2013 Urine Color Yellow 59 Urine Appearance Clear 59 Urine Specific [place] 1.006 Low 1.010-1.030 59 Urine Esterase Negative Negative 59 Urine Nitrate Negative Negative 59 Urine Urobilinogen Negative E.U./dL Negative 59 Urine Protein Negative mg/dL Negative 59 Urine pH 7.0 5-9 59 Urine Blood Negative Negative 59 Urine Ketones Negative mg/dL Negative 59 Urine Bilirubin Negative Negative 59 Urine Glucose Negative mg/dL Negative 59 Lipid Profile (Trig/Chol/HDL) 07/10/2013 Triglycerides 87 mg/dL 60, 61 Cholesterol 154 mg/dL 60, 62 HDL Cholesterol 56.3 mg/dL 60, 63 LDL Cholesterol 80 mg/dL 60, 64 Comp Metabolic Panel 07/10/2013 Sodium 139 mmol/L 133-145 60 Potassium 3.8 mmol/L 3.7-5.6 60 Chloride 108 mmol/L 101-111 60 Co2 Carbon Dioxide 27 mmol/L 22-32 60 Anion Gap 4 mmol/L 2-11 60 Glucose 90 mg/dL 70-100 60 Blood Urea Nitrogen 14 mg/dL 6-24 60 Creatinine 0.81 mg/dL 0.51-0.95 60 BUN/Creatinine Ratio 17.3 8-20 60 Calcium 9.7 mg/dL 8.6-10.3 60 Total Protein 7.2 g/dL 6.4-8.9 60 Albumin 4.3 g/dL 3.2-5.2 60 Globulin 2.9 g/dL 2-4 60 Albumin/Globulin Ratio 1.5 1-3 60 Total Bilirubin 0.60 mg/dL 0.2-1.0 60 Alkaline Phosphatase 84 U/L 34-104 60 Alt 21 U/L 7-52 60 Ast 23 U/L 13-39 60 Egfr Non- 70.1 >60 60 Egfr 90.2 >60 60, 65 Laboratory test finding 07/10/2013 [place] 0.75 mmol/L 0.6-1.2 60 TSH (Thyroid Stimulating Horm) 0.76 IU/mL 0.34-5.60 60, 66 CBC Auto Diff 07/10/2013 White Blood Count 9.2 10^3/uL 4.8-10.8 60 Red Blood Count 4.20 10^6/uL 4.0-5.4 60 Hemoglobin 12.9 g/dL 12.0-16.0 60 Hematocrit 38 % 35-47 60 Mean Corpuscular Volume 91 fL 80-97 60 Mean Corpuscular Hemoglobin 31 pg 27-31 60 Mean Corpuscular HGB Conc 34 g/dL 31-36 60 Red Cell Distribution Width 13 % 10.5-15 60 Platelet Count 329 10^3/uL 150-450 60 Mean Platelet Volume 8 um3 7.4-10.4 60 Abs Neutrophils 7.4 10^3/uL 1.5-7.7 60 Abs Lymphocytes 1.1 10^3/uL 1.0-4.8 60 Abs Monocytes 0.4 10^3/uL 0-0.8 60 Abs Eosinophils 0.2 10^3/uL 0-0.6 60 Abs Basophils 0.1 10^3/uL 0-0.2 60 Abs Nucleated RBC 0 10^3/uL 60 Granulocyte % 80.6 % 38-83 60 Lymphocyte % 12.0 % Low 25-47 60 Monocyte % 4.6 % 1-9 60 Eosinophil % 2.2 % 0-6 60 Basophil % 0.6 % 0-2 60 Nucleated Red Blood Cells % 0 60 Hepatitis B Forrest AB 07/10/2013 Hepatitis B Surface AB Nonreactive Nonreactive 60 Titer Hep B Surf AB Index 0.13 60, 67 Laboratory test finding 07/10/2013 Hepatitis C Antibody Nonreactive Nonreactive 60 Hepatitis B Core Total Ab Negative Negative 60, 68 CBC Auto Diff 12/28/2012 White Blood Count [...] Blood Cells % 0.1 Laboratory test finding 12/28/2012 TSH (Thyroid Stimulating 1.00 miu/mL 0.34-5.60 Horm) Urinalysis W/Microscopic 12/28/2012 Urine Color Yellow Urine Appearance Clear Urine Specific [place] 1.008 Low 1.010-1.030 Urine Esterase Trace Negative [...] Seen Bacteria Urine None Seen None Seen Lipid Profile (Trig/Chol/HDL) 12/28/2012 Triglycerides 100 mg/dL 40-200 Cholesterol 193 mg/dL Less than 200 HDL Cholesterol 65 mg/dL High 40-60 69 Cholesterol/HDL Ratio 3.0 Average 1-4.44 LDL Cholesterol 108.0 High Less Than 100 70 Laboratory test finding 12/28/2012 [place] 0.6 mmol/L 0.5-1.5 Comp Metabolic Panel 12/28/2012 Sodium 141 mmol/L [...] Egfr Non- 62.1 >60 Egfr 79.8 >60 71 Laboratory test finding 05/30/2012 Varicella-Zoster IgG Antibody Positive 72 Iron & Iron Binding 05/30/2012 Iron 75 [...] test finding 05/30/2012 Ferritin 23 ng/mL 11-307 73 Basic Metabolic Panel 05/30/2012 Sodium 142 mmol/L 133-145 Potassium 4.5 mmol/L 3.5-5.0 Chloride 109 mmol/L 101-111 Co2 Carbon Dioxide 28.0 mmol/L 22-32 Anion Gap 5.0 mmol/L 2-11 Glucose 98 mg/dL 70-100 Blood Urea Nitrogen 15 mg/dL 6-24 Creatinine 0.70 mg/dL 0.50-1.40 BUN/Creatinine Ratio 21.4 High 8-20 Calcium 10.2 mg/dL High 8.1-9.9 Egfr Non- 83.2 >60 Egfr 107.0 >60 74 Laboratory test finding 05/30/2012 [place] 0.7 mmol/L 0.5-1.5 TSH (Thyroid Stimulating Horm) 0.54 miu/mL 0.34-5.60 75 Vitamin D, 25 Hydroxy 05/30/2012 25-Hydroxy Vitamin D2 <4.0 ng/mL 25-Hydroxy Vitamin D3 42 ng/mL 25-Hydroxy Vitamin D Total 42 ng/mL 76 CBC Auto Diff 11/21/2011 White Blood Count [...] Hemoglobin A1c 5.3 % Less than 6.0 77 [place] 0.6 mmol/L 0.5-1.5 Comp Metabolic Panel 11/21/2011 [...] 91.7 >60 79 Laboratory test finding 11/21/2011 Ferritin 30 NG/ML 11-307 Lipid Profile (Trig/Chol/HDL) 11/21/2011 Triglycerides 137 mg/dL 40-200 Cholesterol 190 mg/dL Less than 200 80 HDL Cholesterol 59 mg/dL 40-60 81 Cholesterol/HDL Ratio 3.2 AVERAGE 1-4.44 LDL Cholesterol [...] Eosinophils 0.3 0-0.6 Abs Basophils 0 0-0.2 82 Laboratory test finding 07/27/2011 Ferritin 28 NG/ML [...] Eosinophils 0.2 0-0.6 Abs Basophils 0 0-0.2 83 Laboratory test 04/01/2011 Ferritin < 10 NG/ML Low 11.0-307 finding Surgical Pathology 03/22/2011 Surgical Pathology 84 <SEE NOTE> Comp Metabolic Panel 11/10/2010 Sodium 143 mmol/L [...] > 60 eGFR 92.0 > 60 87 CBC Auto Diff 11/10/2010 White Blood Count [...] Eosinophils 0.2 0-0.6 Abs Basophils 0 0-0.2 88 Lipid Profile (Trig/Chol/HDL) 11/10/2010 Triglyceride 115 mg/dL 40-200 Cholesterol 179 mg/dL Less Than 200 89 High Density Lipoprotein 60 mg/dL 40-60 90 Cholesterol/HDL Ratio 2.98 AVERAGE 1-4.44 Low Density Lipoprotein 96 mg/dL Less Than 100 91 Laboratory test finding 11/10/2010 TSH 0.77 MIU/ML 0.34-5.60 [place] 0.8 mmol/L 0.5-1.5 Urinalysis W/Microscopic 11/10/2010 Ua Color YELLOW Yellow Appearance-Urine CLEAR Clear Specific [place]-Ur 1.004 Low 1.010-1.030 Esterase-Urine TRACE Negative Nitrite NEGATIVE Negative [id number] NEGATIVE Negative Protein-Urine NEGATIVE Negative PH-Urine 7.5 5-9 Blood-Urine NEGATIVE Negative Ketones-Urine NEGATIVE Negative Bilirubin-Ur NEGATIVE Negative Glucose-Urine NEGATIVE Negative WBC-Urine 0-2 0-5 RBC-Urine 0-2 0-2 Epith Cells-Ur MANY None Liver Function Panel 01/07/2010 Total Protein 6.5 GM/DL 6.2-8.1 Albumin 4.1 GM/DL 3.2-5.2 Globulin 2.4 GM/DL 2-4 Albumin/Globulin Ratio 1.7 1-3 Bilirubin Total 0.7 mg/dL 0.4-1.5 92 Bilirubin Direct 0.1 mg/dL 0.1-0.5 Indirect Bilirubin 0.6 mg/dL 0.3-1.0 93 Alkaline Phosphatase 90 U/L 30-110 Alt (SGPT) 22 U/L 14-54 Ast (Sgot) 25 U/L 12-42 Lipid Profile (Trig/Chol/HDL) 12/04/2009 Triglyceride 129 mg/dL 40-200 60 Cholesterol 184 mg/dL Less Than 200 60, 94 High Density Lipoprotein 59 mg/dL 40-60 60, 95 Cholesterol/HDL Ratio 3.12 AVERAGE 1-4.44 60 Low Density Lipoprotein 99 mg/dL Less Than 100 60, 96 Laboratory test finding 12/04/2009 Alt (SGPT) 20 U/L 14-54 60 Ast (Sgot) 54 U/L High 12-42 60 Comp Metabolic Panel 10/21/2009 Sodium 142 mmol/L 135-145 Potassium 4.7 mmol/L 3.5-5.0 Chloride 106 mmol/L 101-111 Co2 (Carbon Dioxide) 30.0 mmol/L 22-32 Anion Gap 6.0 mmol/L 2-11 97 Glucose 94 mg/dL 70-100 98 BUN 14 mg/dL 6-24 Creatinine 0.90 mg/dL 0.50-1.40 One Over Creatinine 1.10 BUN/Creatinine Ratio 15.6 8-20 Calcium 9.9 mg/dL 8.1-9.9 99 Total Protein 6.9 GM/DL 6.2-8.1 Albumin 4.0 GM/DL 3.2-5.2 Globulin 2.9 GM/DL 2-4 Albumin/Globulin Ratio 1.4 1-3 Bilirubin Total 0.7 mg/dL 0.4-1.5 100 Alkaline Phosphatase 85 U/L 30-110 Alt (SGPT) 28 U/L 14-54 Ast (Sgot) 27 U/L 12-42 eGFR Non- 66.6 > 60 eGFR 80.6 > 60 101 Lipid Profile (Trig/Chol/HDL) 10/21/2009 Triglyceride 109 mg/dL 40-200 Cholesterol 205 mg/dL High Less Than 200 102 High Density Lipoprotein 47 mg/dL 40-60 103 Cholesterol/HDL Ratio 4.36 AVERAGE 1-4.44 Low Density Lipoprotein 136 mg/dL High Less Than 100 104 Laboratory test finding 10/21/2009 TSH 1.09 MIU/ML 0.34-5.60 [place] 0.8 mmol/L 0.5-1.5 Urinalysis W/Microscopic 10/16/2009 Ua Color YELLOW Yellow Appearance-Urine CLEAR Clear Specific [place]-Ur 1.005 Low 1.010-1.030 Esterase-Urine 1+ Negative Nitrite NEGATIVE Negative [id number] NEGATIVE Negative Protein-Urine NEGATIVE Negative PH-Urine 6.5 5-9 Blood-Urine NEGATIVE Negative Ketones-Urine NEGATIVE Negative Bilirubin-Ur NEGATIVE Negative Glucose-Urine NEGATIVE Negative WBC-Urine 5-10 0-5 RBC-Urine 0-5 0-2 Epith Cells-Ur RARE None Bacteria-Urine TRACE None Amorphous Sed-U TRACE None Urine Culture & Sensitivi 10/16/2009 Urine Culture Sensitivi NG 105 1 Because ethnic data is not always readily [...] 15-29 5 Kidney failure <15 (or dialysis) 2 SEE RESULT BELOW Name: CARLENE MONDRAGON Mo : [address]: Elif Luevano MD Acct: [id number] Unit: [id number] AGE: 71 Location: [facility] Re03/24/17 SEX: F Status: REG REF SPEC: [id number] JOAQUINA: 03/24/17 [facility] DR: Elif Luevano MD REQ: [id number] RECD: 03/24/17 STATUS: COMP _ SOURCE: URINE SPDESC: ORDERED: Urine Culture Procedure Result Reported Site Urine Culture Final 03/25/17- 1230 ML No Growth (<1,000 CFU/mL) * ML - MAIN LAB ([facility]) . END OF REPORT * ML=Testing performed at Main Lab DEPARTMENT OF PATHOLOGY, [address] [place] [address] Jimbo Pratt M.D. Director [facility] # [id number] 3 Because ethnic data is not always readily [...] 15-29 5 Kidney failure <15 (or dialysis) 4 Desirable: <150 Borderline High: 150-199 High: 200-499 Very High: >500 5 Desirable: <200 Borderline High: 200-239 High: >239 6 Low: <40 Desirable: 40-60 High: >60 7 Desirable: <100 Near Optimal: 100-129 Borderline High: 130-159 High: 160-189 Very High: >189 8 FASTING 10 HOUR 9 FASTING 10 HOUR 10 Because ethnic data is not always [...] 15-29 5 Kidney failure <15 (or dialysis) 11 PT is 11.0. 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 With incubation, PTT does not entirely correct (39.6), raising the possibility of a factor inhibitor. Reviewed by: Sapphire Mora MD 12 ADDITIONAL INFORMATION This test has been modified from the hydroelectric station chief's instructions. Its performance characteristics were determined by [facility] in a manner consistent with CLIA requirements. This test has not been cleared or approved by the U.S. Food and Drug Administration. 13 ADDITIONAL INFORMATION This test has been modified from the hydroelectric station chief's instructions. Its performance characteristics were determined by [facility] in a manner consistent with CLIA requirements. This test has not been cleared or approved by the U.S. Food and Drug Administration. 14 ADDITIONAL INFORMATION This test has been modified from the hydroelectric station chief's instructions. Its performance characteristics were determined by [facility] in a manner consistent with CLIA requirements. This test has not been cleared or approved by the U.S. Food and Drug Administration. 15 No laboratory evidence of von Willebrand's disease [...] not reviewed by physician. Test Performed by: [facility] [employer] - [address] [address] 16 ADDITIONAL INFORMATION This test has been modified from the hydroelectric station chief's instructions. Its performance characteristics were determined by [facility] in a manner consistent with CLIA requirements. This test has not been cleared or approved by the U.S. Food and Drug Administration. Test Performed by: [facility] [employer] - [address] [address] 17 Test Performed by: [facility] - [address] [address] 18 ADDITIONAL INFORMATION This test has been modified from the hydroelectric station chief's instructions. Its performance characteristics were determined by [facility] in a manner consistent with CLIA requirements. This test has not been cleared or approved by the U.S. Food and Drug Administration. Test Performed by: [facility] - [address] [address] 19 ADDITIONAL INFORMATION This test was developed and its performance characteristics determined by [facility] in a manner consistent with CLIA requirements. This test has not been cleared or approved by the U.S. Food and Drug Administration. 20 Test Performed by: [facility] - [address] [address] 21 Test Performed by: [facility] - [address] [address] 22 Test Performed by: [facility] - [address] [address] 23 REFERENCE VALUE 10.3 - 12.8 24 IMPRESSION: 1) Data are diagnostic of presence [...] and common procoagulant pathways within assay sensitivities. 25 Arlin Kuo M.D. Test Performed by: [address] [address] 26 >100 to <200 pg/mL: likely compensated congestive heart failure (CHF) 200 to 400 pg/mL: likely moderate CHF >400 pg/mL: likely moderate to severe CHF 27 [facility] Severe Sepsis and Septic Shock Management Bundle Measure requires all lactic acids initially measuring >2.0 mmol/L be repeated. 28 SEE RESULT BELOW Name: GIANCARLOCARLENE L : [address]: Vinay Chen MD Acct: [id number] Unit: [id number] AGE: 70 Location: ED Re06/09/16 SEX: F Status: DEP ER SPEC: [id number] JOAQUINA: 06/09/[address]: Vinay Chen MD REQ: [id number] RECD: 06/09/16 STATUS: TANG METCALF DR: Elif Luevano MD _ SOURCE: URINE SPDESC: ORDERED: Urine Culture Procedure Result Reported Site Urine Culture Final 06/10/16- 1614 ML No growth of clinically significant organisms * ML - MAIN LAB ([facility]) . END OF REPORT * ML=Testing performed at Main Lab DEPARTMENT OF PATHOLOGY, [address] [place] [address] Jimbo Pratt M.D. Director [facility] # [id number] 29 Acute inflammation: >10.00 30 99th percentile=0.04 ng/mL Troponin results at [facility] and [facility] are not interchangeable. 31 Because ethnic [...] 5 Kidney failure <15 (or dialysis) 32 Because ethnic data is not always readily [...] 15-29 5 Kidney failure <15 (or dialysis) 33 Desirable <150 Borderline high 150-199 High 200-499 Very High >500 34 Desirable <200 Borderline high 200-239 High >239 35 Low <40 Desirable: 40-60 High: >60 36 Desirable: <100 mg/dL Near Optimal: 100-129 mg/dL Borderline High: 130-159 mg/dL High: 160-189 mg/dL Very High: >189 mg/dL 37 Because ethnic data is not always readily [...] 15-29 5 Kidney failure <15 (or dialysis) 38 DUE IN December DUE IN December Because [...] 160-189 mg/dL Very High: >189 mg/dL 45 Because ethnic data is not always readily [...] 15-29 5 Kidney failure <15 (or dialysis) 46 FASTING 10 HOUR DUE IN June Test Performed by: [place] [address] Economic Specialist: Vinay Bojorquez II, M.D., Ph.D. 48 RUN DATE: 06/26/14 [facility] LAB LIVE PAGE 1 RUN TIME: [address] [place] [address] Specimen Inquiry Name: CARLENE MONDRAGON Mo : [address]: Elif Luevano MD Acct: [id number] Unit: [id number] AGE: 68 Location: LAB Re06/24/14 SEX: F Status: REG REF SPEC: [id number] JOAQUINA: 06/24/14-[address]: Elif Luevano MD REQ: [id number] RECD: 06/24/14 STATUS: COMP _ SOURCE: URINE SPDESC: ORDERED: Urine Culture QUERIES: Provider Requisition # [id number] Procedure Result Verified Site Urine Culture Final 06/26/14- 164 ML Organism 1 NORMAL TITO [place] Count 10-25,000 (Moderate) CFU/ML * ML - MAIN LAB ([facility]) . END OF REPORT * ML=Testing performed at Main Lab DEPARTMENT OF PATHOLOGY, [address] [place] [address] Jimbo Pratt M.D. Director [facility] # [id number] 49 Desirable <150 Borderline high 150-199 High 200-499 Very High >500 50 Desirable <200 Borderline high 200-239 High >239 51 Low <40 Desirable: 40-60 High: >60 52 Desirable: <100 mg/dL Near Optimal: 100-129 mg/dL Borderline High: 130-159 mg/dL High: 160-189 mg/dL Very High: >189 mg/dL 53 Because ethnic data is not always [...] 5 Kidney failure <15 (or dialysis) 54 Because ethnic data is not always readily [...] 15-29 5 Kidney failure <15 (or dialysis) 55 RUN DATE: 01/22/14 [facility] LAB LIVE PAGE 1 RUN TIME: [address] [place] [address] Specimen Inquiry Name: CARLENE MONDRAGON : [address]: Filiberto Kc NP Acct: [id number] Unit: [id number] AGE: 68 Location: [facility] Re01/20/14 SEX: F Status: REG REF SPEC: [id number] JOAQUINA: 01/20/[address]: Filiberto Kc NP REQ: [id number] RECD: 01/20/14 STATUS: TANG METCALF DR: Elif Tijerina MD _ SOURCE: URINE SPDESC: ORDERED: Urine Culture QUERIES: Med[employer] Number [id number] Procedure Result Verified Site Urine Culture Final 01/22/14- 912 ML Organism 1 NORMAL TITO [place] Count 25-50,000 (Moderate) CFU/ML END OF REPORT * ML=Testing performed at Main Lab DEPARTMENT OF PATHOLOGY, [facility] [place], [place] [address] Jimbo Pratt M.D. Director [facility] # [id number] 56 Potassium reference range changed effective 12/22/13 57 Because ethnic data is not always readily [...] 15-29 5 Kidney failure <15 (or dialysis) 58 RUN DATE: 01/25/14 [facility] LAB LIVE PAGE 1 RUN TIME: 513 [facility] [employer] [place], [place] [address] Specimen Inquiry Name: CARLENE MONDRAGON : [address]: Filiberto Kc BUILDING COORDINATOR Acct: [id number] Unit: [id number] AGE: 68 Location: [facility] Re01/20/14 SEX: F Status: REG REF SPEC: [id number] JOAQUINA: 01/20/[address]: Filiberto Kc NP REQ: [id number] RECD: 01/20/14 STATUS: TANG METCALF DR: Elif Tijerina MD _ SOURCE: BLOOD,VENO SPDESC: ORDERED: Blood Cult QUERIES: Med[employer] Number [id number] Procedure Result Verified Site Aerobic Culture Bottle Final 01/25/14- 1450 ML No Growth Day 5 Anaerobic Culture Bottle Final 01/25/14- 1450 ML No Growth Day 5 END OF REPORT * ML=Testing performed at Main Lab DEPARTMENT OF PATHOLOGY, [address] [place] [address] Jimbo Pratt M.D. Director [facility] # [id number] 59 WITH MICROSCOPIC 60 FASTING 61 Desirable <150 Borderline high 150-199 High 200-499 Very High >500 62 Desirable <200 Borderline high 200-239 High >239 63 Low <40 Desirable: 40-60 High: >60 64 Desirable <100 Near Optimal 100-129 Borderline high 130-159 High 160-189 Very High >189 65 Because ethnic data is not always readily [...] 15-29 5 Kidney failure <15 (or dialysis) 66 FASTING 67 The World Health Organization (WHO) Hepatitis B Immunoglobulin 1st International Reference Preparation (1976): The accepted criteria for immunity to HBV is anti-HBs activity greater than or equal to 10 mIU/mL. An Index Value of 1.00 is equivalent to 10 mIU/mL. Samples with an Index Value of 1.00 or greater are considered reactive (protective) in accordance with the CDC guidelines. 68 Test Performed by: [address] [address] Economic Specialist: Austin Vega III, M.D. 69 HDL Interpretation: Undesirable: High Risk: Less than 40 mg/dL Desirable: Low Risk: Greater than 60 mg/dL 70 LDL Interpretation: Low Risk Optimal Level: LDL Less than 100 mg/dL Near or Above Optimal: LDL 100-129 mg/dL Borderline High Risk: LDL 130-159 mg/dL High Risk: LDL 160-189 mg/dL Very High Risk: LDL Greater than 189 mg/dL 71 Because ethnic data is not always readily [...] 15-29 5 Kidney failure <15 (or dialysis) 72 -- REFERENCE VALUE -- Negative Test Performed by: [place] [address] Economic Specialist: Austin Vega III, M.D. 73 FASTING 74 Because ethnic data is not always readily [...] 15-29 5 Kidney failure <15 (or dialysis) 75 FASTING 76 -- REFERENCE VALUE -- 25-HYDROXY D TOTAL (D2+D3) Optimum levels in the normal population are 25-80 Test Performed by: [facility] [address] [address] Economic Specialist: Austin Vega III, M.D. 77 Therapeutic target for the treatment of diabetes Mellitus patients is <7% HBA1C, and in selective patients <6.0%.Please refer to [place] [employer] Diabetic care guidelines for further information. 78 A metabolite of Naproxen, O-desmethylnaproxen, has been shown to interfere with the [place]rass[place] method for measuring total bilirubin. Samples from [...] 5 Kidney failure <15 (or dialysis) 80 Desirable: Less than 200 MG/DL Borderline-High Risk: 200-239 MG/DL High-Risk: 240 MG/DL and over 81 HDL Interpretation: Undesirable: High Risk: Less than 40 MG/DL Desirable: Low Risk: Greater than 60 MG/DL 82 Lymphopenia % 83 Neutrophilia % Lymphopenia % 84 ---- RUN DATE: 03/24/11 [facility] NMI LIVE PAGE 1 RUN TIME: 1239 Specimen Inquiry RUN USER: INTERFACE -- Name: CARLENE MONDRAGON [facility]#: [id number] Status: REG REF Re03/22/11 Age/Sex: 65/F Unit#: [id number] [facility] [birth year] -- Specimen: [id number] SOUT Spec Date: 03/22/[address]: Paulo sevilla MD Spec Type: SURGICAL P Received: 03/23/11-2852 Copies to: Elif larsen MD SPECIMEN 1) HEPATIC FLEXURE BIOPSY 2) PROXIMAL TRRANSVERSE BIOPSY HISTORY POST-OP DIAGNOSIS: Colonoscopy to cecum. Colon polyps. CLINICAL INFORMATION: Heme positive stool. No bowel issue. GROSS DESCRIPTION 1) The specimen is received in formalin labelled Carlene Mondragon, Hepatic Flexure Biopsy, and consists of two garcia soft tissue fragments measuring 0.8 x 0.2 x 0.2 cm. Submitted entirely, one cassette. 2) The specimen is received in formalin labelled Carlene Mondragon, Proximal Transverse Biopsy, and consists of a [...] 03/24/11 1237 -- -- DEPARTMENT OF PATHOLOGY, [address] [place] [address] [facility] Permit #[id number] Jimbo Pratt M.D. Director Jonna Song M.D. Hatchery Helper Dir wagner -- 85 Anion gap measurement may be of limited value in the presence of any alkalosis, especially in a combined acid base disorder. . 86 A metabolite of Naproxen, O-desmethylnaproxen, has been shown to interfere with the [place] method for measuring total bilirubin. Samples from [...] 5 Kidney failure <15 (or dialysis) 88 Neutrophilia % Lymphopenia % 89 CHOLESTEROL INTERPRETATION: Desirable: Less than 200 MG/DL Borderline-High Risk: 200-239 MG/DL High-Risk: 240 MG/DL and over 90 HDL INTERPRETATION: Undesirable: High Risk: Less than 40 MG/DL Desirable: Low Risk: Greater than 60 MG/DL 91 LDL INTERPRETATION: Low Risk Optimal Level: LDL Less than 100 MG/DL Near or Above Optimal: LDL 100-129 MG/DL Borderline High Risk: LDL 130-159 MG/DL High Risk: LDL 160-189 MG/DL Very High Risk: LDL Greater than 189 MG/DL 92 A metabolite of Naproxen, O-desmethylnaproxen, has been shown to interfere with the Jendrassik-[place] method for measuring total bilirubin. Samples from patients who have taken Naproxen have shown spurious elevation in total bilirubin levels. 93 Please note updated reference range, effective 09/10/09 94 CHOLESTEROL INTERPRETATION: Desirable: Less than 200 MG/DL Borderline-High Risk: 200-239 MG/DL High-Risk: 240 MG/DL and over 95 HDL INTERPRETATION: Undesirable: High Risk: Less than 40 MG/DL Desirable: Low Risk: Greater than 60 MG/DL 96 LDL INTERPRETATION: Low Risk Optimal Level: LDL Less than 100 MG/DL Near or Above Optimal: LDL 100-129 MG/DL Borderline High Risk: LDL 130-159 MG/DL High Risk: LDL 160-189 MG/DL Very High Risk: LDL Greater than 189 MG/DL 97 Anion gap measurement may be of limited value in the presence of any alkalosis, especially in a combined acid base disorder. . 98 Note change in reference range as of 10/11/07. The change was based on recommendations from the [place] [employer]. 99 Please note change in reference range effective 07 . 100 A metabolite of Naproxen, O-desmethylnaproxen, has been shown to interfere with the Jendrassik-[place] method for measuring total bilirubin. Samples from patients who have taken Naproxen have shown spurious elevation in total bilirubin levels. 101 Because ethnic data is not always readily [...] 15-29 5 Kidney failure <15 (or dialysis) 102 CHOLESTEROL INTERPRETATION: Desirable: Less than 200 MG/DL Borderline-High Risk: 200-239 MG/DL High-Risk: 240 MG/DL and over 103 HDL INTERPRETATION: Undesirable: High Risk: Less than 40 MG/DL Desirable: Low Risk: Greater than 60 MG/DL 104 LDL INTERPRETATION: Low Risk Optimal Level: LDL Less than 100 MG/DL Near or Above Optimal: LDL 100-129 MG/DL Borderline High Risk: LDL 130-159 MG/DL High Risk: LDL 160-189 MG/DL Very High Risk: LDL Greater than 189 MG/DL 105 FINAL: NO GROWTH DAY 2 (<1,000 CFU/mL) Procedures Date CPT Code Description Status 05/31/2017 76358 Removal Devitalization Tissue Wound Less Than Equal 20 Completed Square CM 05/24/2017 57840 Removal Devitalization Tissue Wound Less Than Equal 20 Completed Square CM 05/17/2017 51176 Removal Devitalization Tissue Wound Less Than Equal 20 Completed Square CM 05/10/2017 85737 Removal Devitalization Tissue Wound Less Than Equal 20 Completed Square CM 05/08/2017 Mammogram Completed 05/03/2017 66019 Removal Devitalization Tissue Wound Less Than Equal 20 Completed Square CM 12/23/2016 39115 EKG Tracing & Interpretation Completed 07/05/2016 Colonoscopy Completed 07/08/2015 Mammogram Completed 02/19/2015 97254 Repair Hernia Umbilical > 5 Yrs, Reducible Completed 02/02/2015 80579 EKG Tracing & Interpretation Completed 06/17/2014 75868 Diffusing Capacity Completed 06/17/2014 88689 Pulmonary Function><Bronchodil Completed 02/14/2014 Mammogram Completed 04/04/2013 Bone Mineral Density Test Completed 12/28/2012 Mammogram Completed 11/29/2012 96322 EKG Tracing & Interpretation Completed 12/20/2011 Mammogram Completed 03/22/2011 Colonoscopy Completed 12/16/2010 Mammogram Completed 07/09/2010 83926 Noninvasive Ear Or Pulse Oximetry For Oxygen Saturation Completed 05/04/2010 06060 Noninvasive Ear Or Pulse Oximetry For Oxygen Saturation Completed 04/27/2010 79783 Noninvasive Ear Or Pulse Oximetry For Oxygen Saturation Completed 04/19/2010 36788 Noninvasive Ear Or Pulse Oximetry For Oxygen Saturation Completed 04/14/2010 96723 Inhalation TX For Acute Airway Obstruction Completed W/Nebulizer/Inhaler 11/17/2009 Bone Mineral Density Test Completed 11/17/2009 Mammogram Completed 10/16/2009 49428 EKG Tracing & Interpretation Completed 10/08/2007 21957 EKG Tracing & Interpretation Completed 10/08/2007 94441 EKG Tracing & Interpretation Completed 10/19/2001 Colonoscopy Completed Encounters Type Date Location Provider CPT E/M Dx Office Visit 09/18/2017 8:40a [facility] Internal Medicine Elif Luevano 25592 I10 Mazin Morgan M.D. Office Visit 08/17/2017 7:40a [facility] Medicine Elif Luevano 21029 I10 Mazin Morgan M.D. R60.0 Office Visit 07/11/2017 2:20p [facility] Medicine Elif Luevano 33757 R60.0 - Cathy Herzog Z68.30 Office Visit 06/07/2017 8:30a [facility] AT [facility], [address] S81.812A [facility] Office Visit 06/06/2017 9:00a [place] [address] J98.4 [facility] E66.09 J44.9 Office Visit 05/05/2017 10:20a [facility] Internal Elif Bassem, 36895 R60.0 Medicine - [place] M.[place]. Office Visit 05/03/2017 9:00a Wound Care Center AT [facility], [address] S81.812A [facility] Office Visit 04/17/2017 2:20p [facility] Internal Elif Bassem, 08626 R60.0 Medicine - [place] M.D. L03.115 Office Visit 04/10/2017 11:40a [facility] Internal Elif Bassem, 00129 L03.115 Medicine - [place] M.D. L60.2 Office Visit 04/06/2017 3:00p [facility] [place] [address] L03.115 Medicine - [place] Office Visit 12/23/2016 3:20p [facility] Internal Elif Luevano, 42625 Z01.818 Medicine - [place] M.D. I10 D68.9 H26.9 J44.9 Office Visit 09/20/2016 3:20p [facility] Internal Elif Luevano, 57857 R60.0 Medicine - [place] M.D. Office Visit 08/30/2016 11:00a [facility] Internal Elif Luevano, 91111 L97.801 Medicine - [place] M.D. R60.0 Office Visit 07/21/2016 8:40a [facility] Medicine Elif Luevano, 45512 D68.9 - [place] M.D. R60.0 I10 H02.534 Office Visit 06/14/2016 2:00p [facility] Medicine Elif Luevano, 11591 D64.9 - [place] M.D. D68.9 Office Visit 06/06/2016 8:30a [place] [address] R91.8 Services [facility] J44.9 Office Visit 05/13/2016 2:20p [facility] Medicine Elifradha Luevano, 00474 R91.8 - [place] M.D. R60.0 Office Visit 04/18/2016 9:00a [facility] Elif Luevano 14705 R74.0 - [place] M.DSuzette Z12.11 R91.8 I10 Office Visit 02/26/2016 7:30a Pul[place] [address] J98.4 Services [facility] J44.9 Z87.891 Office Visit 02/11/2016 4:00p [facility] Medicine Elif Luevano 18123 H61.21 - Cathy Herzog Office Visit 02/08/2016 3:20p [facility] Medicine Elif Luevano 43130 Z00.00 - Cathy Herzog R91.1 Z12.11 E78.5 I10 F31.89 Z11.1 Office Visit 11/19/2015 10:00a [facility] Internal Elif Luevano 05522 S81.002D Juany Morgan M.D. F31.61 Z79.899 R91.1 Office Visit 11/02/2015 2:40p [facility] Internal Jagjit BiancaSuzette Dunaway 33281 S81.002A Juany Schulte M.D. Office Visit 10/13/2015 3:20p [facility] Internal Elif Luevano 71015 R23.8 Medicine Mazin Morgan M.D. Office Visit 09/29/2015 10:40a [facility] Internal Elif Luevano 88110 H00.013 Juany Morgan M.D. S81.801A R23.8 Office Visit 07/27/2015 10:20a [facility] Medicine Elif Luevano M.D. 25650 I10 - Cathy R31.9 Z87.891 Office Visit 04/09/2015 4:00p [facility] Elif Luevano 26721 R23.3 - Cathy Herzog Office Visit 10/20/2014 10:00a [facility] Medicine Elif Luevano 68429 496 - Cathy Herzog 599.70 Office Visit 07/25/2014 9:00a [facility] Elif Luevano M.D. 93668 496 - Cathy 401.1 Office Visit 07/09/2014 10:20a [facility] Medicine Elif Luevano 27301 401.1 - Catyh Herzog 599.70 496 Office Visit 01/27/2014 10:00a [facility] [place] [address] 780.60 [place] 794.8 V03.82 Office Visit 01/20/2014 1:30p [facility] Medicine - Filiberto Kc, BUILDING COORDINATOR [address]57[address] 786.05 [place] 780.60 Office Visit 01/10/2014 1:40p [facility] Elifradha Luevano, 28186 V70.0 - [place] M.D. 272.2 401.1 296.7 V76.12 496 486 782.3 v04.81 715.04 Office Visit 11/28/2013 1:20p [facility] Medicine Elifradha Luevano 01753 786.2 - [place] M.D. Office Visit 07/02/2013 11:20a [facility] Elif Luevano 40173 401.1 - [place] M.D. 272.2 296.7 790.4 Office Visit 04/01/2013 10:00a [facility] Elif Luevano 71985 401.1 - [place] M.D. 786.2 272.2 Office Visit 11/29/2012 10:20a [facility] Elif Luevano 07896 V70.0 - [place] M.D. 401.1 272.2 296.7 V76.10 V04.81 Office Visit 10/05/2012 3:20p [facility] Medicine Elif Luevano 77983 782.3 - [place] M.D. Office Visit 09/19/2012 10:40a [facility] Medicine Shana Dela Cruz, N.P. 21459 682.6 - [place] Office Visit 09/07/2012 10:40a [facility] Medicine Shana Dela Cruz, N.P. 43657 682.6 - [place] Office Visit 06/04/2012 9:20a [facility] Elif Luevano 65031 401.1 - [place] M.D. 496 Office Visit 04/03/2012 10:00a [facility] Elif Luevano 50192 401.1 - [place] M.D. 296.7 Office Visit 11/28/2011 10:20a [facility] Elif Luevano 91709 V70.0 - [place] M.D. 496 401.1 V76.10 280.8 244.9 272.2 V04.81 Office Visit 04/25/2011 11:40a [facility] Elif Cotton, 35376 401.1 - [place] M.D. 496 280.8 V06.1 Office Visit 07/09/2010 9:00a DO Not Use [employer] Elif Cotton, 61599 496 M.D. 401.1 272.0 Office Visit 05/04/2010 2:30p DO Not Use Elif Cotton, 14065 496 [employer] M.D. Office Visit 04/27/2010 9:30a DO Not Use Shana Varn, N.P. 00307 496 [employer] Office Visit 04/19/2010 9:30a DO Not Use Elif Cotton, 60247 496 [employer] M.D. Office Visit 04/14/2010 11:30a DO Not Use Shana Varn, N.P. 28178 466.0 [employer] Office Visit 10/16/2009 10:15a DO Not Use Elif Cotton, 00093 V70.0 [employer] M.D. 401.1 244.9 296.7 272.0 496 796.9 V03.82 Office Visit 04/21/2009 9:30a DO Not Use RadShelby saaba, 85804 244.9 [employer] M.D. 401.1 296.7 Office Visit 10/13/2008 9:15a DO Not Use [employer] saaba, 50257 V70.0 [employer] [facility] M.D. 493.90 272.0 401.1 244.9 V04.81 Office Visit 04/07/2008 9:15a DO Not Use [facility]hel[facility] saaba, 63337 244.9 [employer] M.D. 272.0 496 401.1 Office Visit 10/08/2007 9:45a DO Not Use [facility] saaba, 50850 V70.0 [employer] M.D. 244.9 272.0 401.1 296.7 Office Visit 07/02/2007 9:00a DO Not Use [facility] saaba, 54017 244.9 [employer] M.D. 272.0 401.1 Office Visit 04/02/2007 9:00a DO Not Use RadomskiShelbya, 73001 272.0 [employer] M.D. 244.9 296.7 401.1 Office Visit 01/15/2007 9:45a DO Not Use [facility]oms[facility]helby dumonta, 04094 296.7 [employer] M.D. 401.1 Office Visit 12/22/2006 12:45p DO Not Use [facility]hel[facility] dumonta, 55157 782.3 [employer] M.D. 401.1 Office Visit 11/29/2006 3:45p DO Not Use Radomsjulia Jasmin, 88501 599.0 [employer] M.D. 496 401.1 V04.81 Office Visit 11/27/2006 2:00p DO Not Use [facility]hel[facility] dumonta, 88435 781.0 [employer] M.D. 780.79 296.7 786.2 Office Visit 10/04/2006 9:30a DO Not Use [facility]hel[facility] dumonta, 97651 244.9 [employer] M.D. 296.7 401.1 V70.0 Office Visit 05/29/2006 9:15a DO Not Use [facility]hel[facility] dumonta, 80854 493.90 [employer] M.D. 466.0 496 401.1 Office Visit 04/10/2006 9:45a DO Not Use [facility]hel[facility] dumonta, 74418 493.90 [employer] M.D. 466.0 401.1 Office Visit 03/29/2006 9:45a DO Not Use Radomsjul[facility] Jasmin, 81093 466.0 [employer] M.D. 401.1 493.90 Office Visit 03/10/2006 1:00p DO Not Use [facility] Jasmin, 33617 381.4 [employer] M.D. 465.9 Office Visit 09/27/2005 8:45a DO Not Use [facility]oms[facility]helby dumonta, 06821 401.1 [employer] M.D. 272.0 244.9 496 Plan of Care Future Appointment(s):10/19/2017 7:40 am - Elif Luevano M.D. at [facility] - [id number]/24/2019 9:20 am - Elif Luevano M.D. at [facility] - [id number]/17/2019 9:00 am - Lydia Mayen MD at [facility]09/18/2017 - Elif Luevano M.D.I10 Essential (primary) hypertensionNew Medication:Felodipine ER 10 mgComments: Increase felodipine back to 10 mg dailyStop the 2.5 and 5 mg tabsHopefully leg swelling will not increase Stay on chlorthalidone and labetalol Continue checking BP once a weekWalking is important!Follow up:1 month
[2017-09-28 12:18] VITALS: BP 137/83
--- NOTE | 2017-09-28 15:49 | ED ---
Skin Complaint - HPI Summary HPI Summary: Patient is a 72-year-old female presenting to the ED with aid after scraping her leg at work on a nearby chair. Due to very thin skin this created a laceration approximately 9 cm in length which is very superficial. She denies any other complaints or symptoms. 8 states this has happened several times as her skin is very thin. She denies any anticoagulant use. - History of Current Complaint Chief Complaint: EDExtremityLower Time Seen by Provider: 09/28/17 12:08 Stated Complaint: RIGHT LEG LAC Hx Obtained From: Patient Onset/Duration: Started Hours Ago Skin Exposure Onset/Duration: Hours Ago Timing: Constant Onset Severity: Mild Current Severity: Mild Pain Intensity: 0 Pain Scale Used: 0-10 Numeric Skin Location: Leg Aggravating Symptom(s): Nothing Alleviating Symptom(s): Nothing Associated Signs & Symptoms: Negative Related History: Trauma - Allergy/Home Medications Allergies/Adverse Reactions: Allergies Allergy/AdvReac Type Severity Reaction Status Date / Time No Known Allergies Allergy Verified 04/30/17 11:22 PMH/Surg Hx/FS Hx/Imm Hx Previously Healthy: Yes Endocrine/Hematology History: Reports: Hx Thyroid Disease - HYPOTHYROIDISM, Hx Anemia - HISTORY OF, BLOOD CLOTTING DISORDER Cardiovascular History: Reports: Hx Hypertension, Other Cardiovascular Problems/ Disorders - WEARS TEDS, LOWER EXTREMITY EDEMA Respiratory History: Reports: Hx Chronic Obstructive Pulmonary Disease (COPD), Hx Sleep Apnea - USES OXYGEN 2 L/M WHILE SLEEPING, Other Respiratory Problems/ Disorders - COPD GI History: Reports: Hx Gastroesophageal Reflux Disease - TAKES RX Musculoskeletal History: Reports: Hx Arthritis - FINGERS AND HANDS Denies: Hx Osteoporosis Sensory History: Reports: Hx Cataracts - BILATERAL WITH MACULAR DEGENERATION, Hx Contacts or Glasses - GLASSES, Hx Hearing Aid - BILATERAL Opthamlomology History: Reports: Hx Cataracts - BILATERAL WITH MACULAR DEGENERATION, Hx Contacts or Glasses - GLASSES Neurological History: Reports: Other Neuro Impairments/Disorders - BIPOLAR DISORDER Psychiatric History: Reports: Hx Anxiety - CONTROL WITH MEDS, Hx Depression - Cancer History Hx Chemotherapy: No Hx Radiation Therapy: No - Surgical History Surgery Procedure, Year, and Place: [place]ST[place]- [place] [facility] [place]MBILICAL [place]IA [place]PA[place]- [place]/19/[place] [facility] [place]x Anesthesia Reactions: No - Immunization History Hx Pertussis Vaccination: No Immunizations Up to Date: Unable to Obtain/Confirm Infectious Disease History: No Infectious Disease History: Denies: History Other Infectious Disease, Traveled Outside the [place] in Last 30 Days - Family History Known Family History: Negative: Cardiac Disease, Hypertension, Diabetes - Social History Occupation: Unemployed Lives: [place] Alcohol Use: None Hx Substance Use: No Substance Use Type: Reports: None Hx Tobacco Use: Yes Smoking Status (MU): Former Smoker Type: Cigarettes Amount Used/How Often: 1-2 PPD FOR MANY YEARS Length of Time of Smoking/Using Tobacco: "MANY YEARS" 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, 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 Have You Smoked in the Last Year: No Review of Systems Constitutional: Negative Negative: Fever, Chills, Fatigue, Skin Diaphoresis Negative: Palpitations, Chest Pain Negative: Shortness Of Breath, Cough Genitourinary: Negative Positive: no symptoms reported, see HPI Negative: Arthralgia, Myalgia Positive: Other - 9x5cm laceration to the R lower extremity Neurological: Negative All Other Systems Reviewed And Are Negative: Yes Physical Exam Triage Information Reviewed: Yes Vital Signs On Initial Exam: Initial Vitals Temp Pulse Resp BP Pulse Ox 97.4 F 76 17 137/83 96 09/28/17 12:16 09/28/17 12:16 09/28/17 12:16 09/28/17 12:16 09/28/17 12:16 Vital Signs Reviewed: Yes Appearance: Positive: Well-Appearing, Well-Nourished Skin: Positive: Warm, Skin Color Reflects Adequate Perfusion, Other - 9x5cm laceration to the R lower extremity Head/Face: Positive: Normal Head/Face Inspection Eyes: Positive: EOMI, MOJGAN Neck: Positive: Supple Respiratory/Lung Sounds: Positive: Clear to Auscultation, Breath Sounds Present Cardiovascular: Positive: RRR, Pulses are Symmetrical in both Upper and Lower Extremities Musculoskeletal: Positive: Normal, Strength/ROM Intact Neurological: Positive: Sensory/Motor Intact Psychiatric: Positive: Normal AVPU Assessment: Alert Diagnostics - Vital Signs Vital Signs Temp Pulse Resp BP Pulse Ox 09/28/17 12:16 97.4 F 76 17 137/83 96 - Laboratory Lab Statement: Any lab studies that have been ordered have been reviewed, and results considered in the medical decision making process. Course/Dx - Course Course Of Treatment: There is a large area of approximately 9 cm in length and 5 cm in width to the right lateral lower leg with a skin avulsion/tear. The area is superficial and does not require laceration repair. Also discussed with the patient there is higher risk for further tearing of the skin with sutures. Occlusive Vaseline gauze placed after skin flap was returned in position. Telfa dressing applied and gauze wrapped. Ever wrap bandage and follow-up with Dr. Freire. She remains ambulating well and denies any pain. - Diagnoses Provider Diagnoses: Avulsion, skin Discharge - Sign-Out/Discharge Documenting (check all that apply): Patient Departure - Discharge Plan Condition: Stable Disposition: HOME Forms: *Work Release Referrals: Elif Luevano MD [Primary Care Provider] - Juan Freire MD [Medical Doctor] - Additional Instructions: Please follow up in wound clinic in 1-2 days if possible Keep the area covered all day for 2 days with antibiotic or occlusive/vaseline gauze Do not soak or scrub the wound You may have water run over it after 2 days, but gently. You may return to work at this time. - Billing Disposition and Condition Condition: STABLE Disposition: Home
== END 2017-09-28 13:05 | disposition home or self-care (01) ==
LOC: ED 12:07
DX: S81.811A Laceration without foreign body, right lower leg, initial encounter (principal); W26.8XXA Contact with other sharp object(s), not elsewhere classified, initial encounter; Y92.9 Unspecified place or not applicable; D75.9 Disease of blood and blood-forming organs, unspecified; J44.9 Chronic obstructive pulmonary disease, unspecified; K21.9 Gastro-esophageal reflux disease without esophagitis; F41.9 Anxiety disorder, unspecified; Z99.81 Dependence on supplemental oxygen; Z79.899 Other long term (current) drug therapy; Z87.891 Personal history of nicotine dependence
CPT/HCPCS: 99282

== ENCOUNTER 2018-03-08 10:30 | Inpatient (IN) | payer MEDICARE, MEDICAID ==
--- NOTE | 2018-03-08 10:42 | ED ---
Neurological HPI - HPI Summary HPI Summary: This patient is a 72 year old F brought in by EMS to [facility] from her 12/09 care facility for a possible CVA. The patient went to bed at her normal time of 2030 last night and was at baseline. This morning the patient was found to be incontinent in bed at 0630, which is unlike her. At this time she was also unable to ambulate this is also unusual for her. The caregiver states she was also seen normal at an unknown time in the middle of the night but the exact time cannot be confirmed as the night staff is not present. EMS states she had a BG of 138 without a hx of DM, they also report an improvement in UE drift in route. The patient states that she is unsure what happened and denies slurred speech. She does report feeling much better than this morning. She denies CP and SOB. Her dominant hand is her left. The patients nurse came in to the care facility at 0900 and states she was concerned as she usually speaks fine and was unable to move even though she is independent at baseline. She was hard to rouse which is unlike her, she was drooling. They do report increased LE edema that has been intermittent in the recent past. The nurse reports weakness, tremors, confusion, and states these are unlike the patient. She denies recent illness. The patient does have a chronic cough due to COPD. The patient is not usually incontinent and no hx of seizure. She does wear O2 at night and did have it on. LEVEL 5 CAVEAT: Exam limited due to the patients confusion and slurred speech - History of Current Complaint Stated Complaint: POSSIBLE STROKE Hx Obtained From: Patient, Family/Set Illustrator - nurse, EMS Onset/Duration: Started hours ago, Still Present Timing: Constant Onset Severity: Moderate Current Severity: Mild Pain Intensity: 0 Pain Scale Used: 0-10 Numeric - Allergy/Home Medications Allergies/Adverse Reactions: Allergies Allergy/AdvReac Type Severity Reaction Status Date / Time No Known Allergies Allergy Verified 04/30/17 11:22 Home Medications: Home Medications Bacitracin OINTMENT* 1 applic TOPICAL BID PRN 03/08/18 [History Confirmed ] Chlorthalidone TAB* [Hygroton TAB*] 25 mg PO DAILY 03/08/18 [History Confirmed 03/08/18] Cholecalciferol (Vitamin D3) [Vitamin D3] 1,000 unit PO DAILY 03/08/18 [History Confirmed 03/08/18] Felodipine (NF) [Plendil (NF)] 10 mg PO DAILY 03/08/18 [History Confirmed ] Worth Carbonate TAB* 300 mg PO BID 03/08/18 [History Confirmed 03/08/18] Multivitamins/Minerals TAB* [Theragran/minerals TAB*] 1 tab PO DAILY 03/08/18 [ History Confirmed 03/08/18] PMH/Surg Hx/FS Hx/Imm Hx Endocrine/Hematology History: Reports: Hx Thyroid Disease - HYPOTHYROIDISM, Hx Anemia - HISTORY OF, BLOOD CLOTTING DISORDER Cardiovascular History: Reports: Hx Hypertension, Other Cardiovascular Problems/ Disorders - WEARS TEDS, LOWER EXTREMITY EDEMA Respiratory History: Reports: Hx Chronic Obstructive Pulmonary Disease (COPD), Hx Sleep Apnea - USES OXYGEN 2 L/M WHILE SLEEPING, Other Respiratory Problems/ Disorders - COPD GI History: Reports: Hx Gastroesophageal Reflux Disease - TAKES RX Musculoskeletal History: Reports: Hx Arthritis - FINGERS AND HANDS Denies: Hx Osteoporosis Sensory History: Reports: Hx Cataracts - BILATERAL WITH MACULAR DEGENERATION, Hx Contacts or Glasses - GLASSES Opthamlomology History: Reports: Hx Cataracts - BILATERAL WITH MACULAR DEGENERATION, Hx Contacts or Glasses - GLASSES Neurological History: Reports: Other Neuro Impairments/Disorders - BIPOLAR DISORDER Psychiatric History: Reports: Hx Anxiety - CONTROL WITH MEDS, Hx Depression - Cancer History Hx Chemotherapy: No Hx Radiation Therapy: No - Surgical History Surgery Procedure, Year, and Place: HYSTERECTOMY- 1988- [facility]. 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, 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 (-) Distressed Skin: Warm, Dry HENT: mucus membranes are dry Eyes: Conjunctiva normal Neck: Musculoskeletal ROM normal neck. (-) JVD, (-) Stridor, (-) Tracheal deviation Cardio: Rhythm regular, rate normal, Heart sounds normal; Intact distal pulses; The pedal pulses are 2+ and symmetric. Radial pulses are 2+ and symmetric. (-) Murmur Pulmonary/Chest wall: Effort normal. (-) Respiratory distress, (-) Wheezes, (-) Rales Abd: Soft. (-) Tenderness, (-) Distension, (-) Guarding, (-) Rebound Musculoskeletal: (-) Edema Lymph: (-) Cervical adenopathy Neuro: Alert, and answers questions, LLE drift , Cranial nerves II-XII are grossly intact. (-) Dysmetria, (-) Nystagmus, (-) Ataxia by finger to nose testing, (-) Sensory deficit. l Triage Information Reviewed: Yes Vital Signs On Initial Exam: Initial Vitals Temp Pulse Resp BP Pulse Ox 97.9 F 81 18 106/63 88 03/08/18 10:32 03/08/18 10:32 03/08/18 10:32 03/08/18 10:32 03/08/18 10:32 Vital Signs Reviewed: Yes Completion Of Physical Exam Limited Due To: Level 5 - [place] Coma Scale Best Eye Response: 4 - Spontaneous Best Motor Response: 6 - Obeys Commands Best Verbal Response: 5 - Oriented Coma Scale Total: 15 Diagnostics - Vital Signs Vital Signs Temp Pulse Resp BP Pulse Ox 03/08/18 10:32 97.9 F 81 18 106/63 88 - Laboratory Result Diagrams: 03/13/18 07:09 03/13/18 07:09 Lab Statement: Any lab studies that have been ordered have been reviewed, and results considered in the medical decision making process. - Radiology CXR Radiology Interpretation Completed By: ED Physician, Radiologist Summary of Radiographic Findings: WET READ: right side infiltrates. Pending official report. MULTIFOCAL CONSOLIDATION. RECOMMEND FOLLOW-UP UNTIL RESOLUTION TO EXCLUDE. UNDERLYING PULMONARY PARENCHYMAL PATHOLOGY. ED physician has reviewed this radiology report - CT CT Head CT Interpretation Completed By: Radiologist Summary of CT Findings: NO ACUTE INTRACRANIAL PATHOLOGY. ED physician has reviewed this radiology report. - EKG 1052 Cardiac Rate: Other Rate EKG Rhythm: Atrial Fibrillation - at 81 BPM Summary of EKG Findings: No STEMI NIH Scale - NIH Scale Level of Consciousness: Alert/Keenly Responsive Ask Patient the Month and His/Her Age: Both Correct Ask Pt to Open/Close Eyes and Automatic Profile Sander Operator/Release Non-Paretic Hand: Both Correctly Best Gaze (Only Horizontal Eye Movement): Normal Visual Field Testing: No Visual Loss Facial Paresis-Pt to Smile & Close Eyes or Grimace Symmetry: Normal/Symmetrical Motor Function - Right Arm: No Drift-Holds 10 Seconds Motor Function - Left Arm: No Drift-Holds 10 Seconds Motor Function - Right Leg: No Drift-Holds 10 Seconds Motor Function - Left Leg: Drifts LT 10 seconds Limb Ataxia-Must be out of Proportion to Weakness Present: Absent Sensory (Use Pinprick to Test Arms/Legs/Trunk/Face): Normal Best Language (Describe Picture, Name Items): Some Loss Dysarthria (Read Several Words): Normal Extinction and Inattention: No Abnormality Total Score: 2 Re-Evaluation - Re-Evaluation First Eval Re-Evaluation Time: 12:09 Change: Unchanged Comment: There is no change in status. Course/Dx - Course Assessment/Plan: This patient is a 72 year old F brought in by EMS to [facility] from her 12/09 care facility for a possible CVA. The patient went to bed at her normal time of 2030 last night and was at baseline. This morning the patient was found to be incontinent in bed at 0630, which is unlike her. At this time she was also unable to ambulate this is also unusual for her. The caregiver states she was also seen normal at an unknown time in the middle of the night but the exact time cannot be confirmed as the night staff is not present. EMS states she had a BG of 138 without a hx of DM, they also report an improvement in UE drift in route. The patient states that she is unsure what happened and denies slurred speech. She does report feeling much better than this morning. She denies CP and SOB. Her dominant hand is her left. The patients nurse came in to the care facility at 0900 and states she was concerned as she usually speaks fine and was unable to move even though she is independent at baseline. She was hard to rouse which is unlike her, she was drooling. They do report increased LE edema that has been intermittent in the recent past. The nurse reports weakness, tremors, confusion, and states these are unlike the patient. She denies recent illness. The patient does have a chronic cough due to COPD. The patient is not usually incontinent and no hx of seizure. She does wear O2 at night and did have it on. LEVEL 5 CAVEAT: Exam limited due to the patients confusion and slurred speech. Currently there are no findings to suggest acute stroke. TIA is in the differential. She certainly has right lower lobe PNA. She does not meet sepsis criteria. An EKG reveals afib w/o STEMI. CXR reveals, per radiologist, MULTIFOCAL CONSOLIDATION. RECOMMEND FOLLOW-UP UNTIL RESOLUTION TO EXCLUDE. UNDERLYING PULMONARY PARENCHYMAL PATHOLOGY. CT Head reveals, NO ACUTE INTRACRANIAL PATHOLOGY. Bloodwork obtained. In the ED course the patient was given Iv fluids and IV abx. We discussed patient care with Dr Jung and he has agreed to admit the patient. Patient will be admitted The patient is agreeable with this plan. - Differential Dx Differential Diagnoses Neuro: Positive: Transient Ischemic Attack - Diagnoses Provider Diagnoses: TIA (transient ischemic attack), Delirium, Hypokalemia, PNA (pneumonia) - Physician Notifications Discussed Care Of Patient With: Stewart Jung Time Discussed With Above Provider: 11:40 Instructed by Provider To: Admit As Inpatient - Critical Care Time Critical Care Time: 30-74 min - 35 minutes Discharge - Sign-Out/Discharge Documenting (check all that apply): Patient Departure - admitted - Discharge Plan Condition: Fair Disposition: ADMITTED TO [facility] - Billing Disposition and Condition Condition: FAIR Disposition: Admitted to [facility] - Attestation Statements Document Initiated by Scribe: Yes Documenting Scribe: Loki Dunn Provider For Whom Bruceibe is Documenting (Include Credential): Stef Peña MD Scribe Attestation: Loki Florentino , scribed for Stef Peña MD on 03/13/18 at 1208. Scribe Documentation Reviewed: Yes Provider Attestation: The documentation as recorded by the scribe, Loki Dunn accurately reflects the service I personally performed and the decisions made by me, Stef Peña MD Status of Adal Document: Viewed
[2018-03-08] MEDS ORDERED: NS 0.9% 1000 ML** 1,000 ML IV ONE (10:46)
[2018-03-08 11:26] LABS: Hematocrit 37 % (35-47); Hemoglobin 12.5 g/dl (12.0-16.0); Mean Corpuscular HGB Conc 34 g/dl (31-36); Mean Corpuscular Hemoglobin 30 pg (27-31); Mean Corpuscular Volume 90 fL (80-97); Mean Platelet Volume 7.5 fL (7.4-10.4); Platelet Count 351 10^3/ul (150-450); Red Blood Count 4.14 10^6/ul (4.00-5.40); Red Cell Distribution Width 15 % (10.5-15); White Blood Count 27.3 10^3/ul (3.5-10.8)
[2018-03-08 11:33] LABS: Albumin 3.8 g/dL (3.2-5.2); Albumin/Globulin Ratio 1.3 (1-3); Calcium 10.1 mg/dL (8.6-10.3); EGFR African American 65.6 (>60); EGFR Non-African American 54.2 (>60); HDL Cholesterol 87.5 mg/dL; Total Bilirubin 0.9 mg/dL (0.2-1.0); Total Protein 6.8 g/dL (6.4-8.9)
[2018-03-08 11:34] LABS: Troponin I 0.01 ng/mL (<0.04)
[2018-03-08 11:35] LABS: INR 0.91 (0.77-1.02)
[2018-03-08 11:36] LABS: Potassium 2.6 mmol/L (3.5-5.0)
[2018-03-08] MEDS ORDERED: cefTRIAXone(*) 1 GM in NS 0.9% 50 ML* 50 ML IVPB ONE (11:38)
[2018-03-08 12:00] LABS: Immature Granulocytes 7 % (0-9); Lymphocytes % 2 %; Monocytes % 3 %; Neutrophil % 88 %
[2018-03-08 12:01] LABS: ABS Neutrophils 25.8 10^3/ul (1.5-7.7)
[2018-03-08] MEDS ORDERED: Azithromycin IV(*) 500 MG in NS 0.9% 250 ML* 250 ML IVPB ONE (12:07)
[2018-03-08 12:24] LABS: Lithium 0.93 mmol/L (0.6-1.2)
[2018-03-08] MEDS: KCL 20 MEQ/100 ML IVPREMIX* 20 MEQ/100 ML BAG IV SCH ×2 (12:28→13:28)
[2018-03-08] MEDS ORDERED: Benzonatate CAP* 100 MG PO PRN (13:17)
[2018-03-08] MEDS ORDERED: Ondansetron INJ* 2 MG/ML VIAL IV PRN (13:17)
[2018-03-08] MEDS ORDERED: Acetaminophen TAB* 325 MG PO PRN (13:17)
[2018-03-08] MEDS ORDERED: Albuterol/Ipratropium NEB.SOL* Albuterol 2.5 MG/Ipratropium 0.5 MG 3 ML INH PRN (13:25)
[2018-03-08] MEDS ORDERED: Aspirin 81 mg CHEW TAB* 81 MG TAB.CHEW PO ONE (13:27)
[2018-03-08 13:28] LABS: Urine Appearance Clear; Urine Bacteria Absent (Absent); Urine Bilirubin Negative (Negative); Urine Blood 1+ (Negative); Urine Color Straw; Urine Glucose Negative (Negative); Urine Ketones Negative (Negative); Urine Nitrite Negative (Negative); Urine Protein Negative (Negative); Urine Red Blood Cell Trace(0-2/hpf) (Absent); Urine Specific Gravity 1.004 (1.010-1.030); Urine Squamous Epithelial Cell Present (Absent); Urine Urobilinogen Negative (Negative); Urine White Blood Cell Trace(0-5/hpf) (Absent)
[2018-03-08] MEDS ORDERED: Lactated Ringers 1000 ML Bag* 1,500 ML IV SCH (14:00)
[2018-03-08] MEDS: Heparin VIAL(*) 5000 UNITS/ML VIAL (FIVE THOUSAND) SUBCUT SCH ×2 (15:51→21:45)
[2018-03-08] MEDS: cefTRIAXone(*) 1 GM in NS 0.9% 50 ML* 50 ML IVPB SCH (15:52)
--- NOTE | 2018-03-08 18:48 | HP ---
CC: Dr. Elif Luevano * ADMISSION HISTORY AND PHYSICAL: DATE OF ADMISSION: 03/08/18 PRIMARY CARE PROVIDER: Elif Luevano MD MY ATTENDING WHILE IN THE HOSPITAL: Stewart Jung MD * (DICTATED BY CRISTEL MENDOZA) CHIEF COMPLAINT: Altered mental status, lethargy x5 hours. HISTORY OF PRESENT ILLNESS: Ms. Cavanaugh is a 72-year-old female with past medical history significant for COPD, hypertension, bipolar disorder, developmental delay who was in her normal state of health until this morning when she woke up and was very confused, lethargic, and weak. She was unable to walk more than a couple steps without becoming very short of breath. The patient also was noted to have a new onset facial droop, but no focal weakness, only diffuse weakness. The patient lives in a custodial in [place]. The patient has vital signs taken all of which were unremarkable with no fever, tachycardia, hypotension. The patient was sent to the emergency department where she improved slightly with the administration of fluids and antibiotics. The patient denies photophobia, neck pain. The patient has shortness of breath. The patient has a chronic morning cough but no increased cough or sputum. The patient has no exposure to patients with a flu. The patient had no other recent illnesses. The patient denies fevers, chills, nausea, or vomiting. The patient just feels very poorly. The patient has a very dry mouth and it is difficult for her to speak. The patient has no difficulty swallowing. The patient never coughs when eating. The patient denies chest pain, shortness of breath, palpitations, dizziness. The patient has chronic nystagmus, which is at baseline per her caregivers. The patient is more alert than this morning per her caregivers and able to answer all questions, though she is very hard of hearing. The patient's last known well was before she went to bed on 03/07/18. The patient has intermittent lower extremity swelling, which is at her baseline this morning. The patient has COPD for which she takes chronic inhalers and wears 2 L of oxygen at night. The patient has been noted to have taken her oxygen off at approximately 5 a.m., but she was not hypoxic when her vital signs were taken this morning. The patient in the emergency department had brain CT, which was negative and chest x- ray, which was concerning for right lobar pneumonia and due to the concern for pneumonia with toxic encephalopathy versus stroke, we were asked to evaluate the patient for admission to the hospital. PAST MEDICAL HISTORY: 1. Emphysema. 2. Bipolar disorder. 3. Hypertension. 4. Hyperlipidemia. 5. Lung nodules. 6. Hypothyroidism. 7. Iron deficiency anemia. 8. Nystagmus. 9. Osteoarthritis. 10. Colon polyps. 11. Elevated PTT. PAST SURGICAL HISTORY: Hysterectomy. MEDICATIONS: 1. Levothyroxine 125 mcg p.o. daily. 2. Incruse Ellipta 1 puff inhalation daily. 3. Felodipine 10 mg p.o. daily. 4. Vitamin D 1000 units p.o. daily. 5. Labetalol 200 mg p.o. b.i.d. 6. Flovent 200 mcg inhalation b.i.d. 7. Fluticasone 50 mcg both nares daily. 8. Abilify 5 mg p.o. daily. 9. [place] carbonate 300 mg p.o. b.i.d. 10. Multivitamin 1 tab p.o. daily. 11. Omeprazole 20 mg p.o. b.i.d. 12. Tylenol 650 mg p.o. q.6 hours as needed. 13. Chlorthalidone 25 mg daily. ALLERGIES: SEASONAL. FAMILY HISTORY: Unknown. SOCIAL HISTORY: The patient is having extensive smoking history, but quit almost 20 years. The patient does not drink alcohol or use illicit drugs. 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 The patient is not and has no children. The patient's surrogate decision maker is friend, Mary Gregg. REVIEW OF SYSTEMS: A 14-point review of systems was reviewed and was negative except as above in the HPI. PHYSICAL EXAMINATION GENERAL: The patient is a 72-year-old female who appears stated age and sitting comfortably in the bed, in no acute distress. VITAL SIGNS: Temperature 97.9, pulse rate 83, respiratory rate 19, oxygen saturation 91% on 3 L, and blood pressure 120/89. HEENT: Head: Normocephalic, atraumatic. Sclerae anicteric. No conjunctival injection. Oral mucosa very dry. No pharyngeal erythema, discharge, or exudate. NECK: Supple, nontender. No pain with full range of motion. No carotid bruits auscultated. No JVD. CARDIAC: Regular rate and rhythm. No clicks, murmurs, gallops, or rubs. Pulses 2+ in the bilateral dorsalis pedis, posterior tibialis, and radial areas. 2+ in the bilateral lower extremity pitting edema with chronic venous stasis changes. RESPIRATORY: Rhonchi heard in bilateral lower lobes and right middle lobe. Good air exchange bilaterally. No wheezes, rales, rhonchi. ABDOMEN: Soft, nontender, nondistended. Bowel sounds present, normoactive in all 4 quadrants. No hepatosplenomegaly. No abdominal bruits auscultated. No hepatojugular reflux. GENITOURINARY: No suprapubic or CVA tenderness. NEURO: Alert and oriented x3. Slight left-sided facial droop with asymmetric smile and eye droop with left eye being slightly wider than the right and displaced downwards. This is the patient's baseline per family. Slurred speech , improved throughout exam. Diffusely weak throughout, 4- strength in all muscle groups tested and no asymmetry. Normal sensation. Reflexes 1+ in bilateral biceps, patellar, and Achilles areas. Babinski is down going bilaterally. The patient unable to cooperate for cerebellar testing. Nystagmus present with both lateral gazes symmetrically. PSYCHIATRIC: Weepy but cooperative. SKIN: Bruising at the patient's baseline per staff. No other rashes. DIAGNOSTIC STUDIES/LAB DATA: White blood cell 27.3, hemoglobin 12.5, platelet count 351. INR 0.91, aPTT 45.0. PH 7.46, pCO2 39, pO2 98. Oxygen saturation 99.1%. HCO3 27.8. Sodium 139, potassium 2.6, chloride 103, carbon dioxide 29, anion gap 7, BUN 25, creatinine 1.0, glucose 135. Lactic acid 1.7. Calcium 10.1. Bilirubin 0.9, AST 86, ALT 83, alkaline phosphatase 97. Troponin I 0.01. Protein 6.8, albumin 3.8, globulin 3.0. Triglycerides 57, cholesterol 165, LDL cholesterol 66, HDL cholesterol 87.5. Urine unremarkable. [place] level 0.93. Studies: Brain CT read as no acute intracranial process. Electrocardiogram shows normal sinus rhythm, incomplete right bundle-branch block, no hypertrophy or enlargement, no other blocks, rate of 81, QTc of 415, compared to previous exam, no significant changes. Chest x-ray performed in the emergency department, not available in the medical record at this time showed right lower middle lobe infiltrate per discussion with radiologist. ASSESSMENT AND PLAN: Impression: Ms. Cavanaugh is a 72-year-old female with a past medical history significant for chronic obstructive pulmonary disease, bipolar disorder, developmental delay, hypertension, and hyperlipidemia who presents to the emergency department with altered mental status with sudden onset this morning with left-sided facial droop with new left side mouth droop. The patient has imaging and laboratory studies consistent with community-acquired pneumonia and is hypoxic and will be admitted to the hospital for close observation and workup for acute cerebrovascular accident as well as IV antibiotics. 1. Community-acquired pneumonia. The patient has lobar infiltrate, is hypoxic , has a white blood cell count. The patient is not tachycardic or hypotensive; however, the patient will be given a 30 mL/kg of bolus of normal saline combined with lactated Ringer's. The patient will receive ceftriaxone and azithromycin. The patient will have aggressive pulmonary toileting. The patient will be started on supplemental oxygen as needed. The patient does not appear to be in chronic obstructive pulmonary disease exacerbation and will not be given steroids. The patient will be continued on her home long-term inhalers and will have DuoNeb available as needed. The patient will have urinary legionella and Strep pneumo antigen. The patient has a flu test, which is pending at this time. The patient has no history of choking with food and no predisposing factors for aspiration at this point. 2. Sepsis. The patient meets SIRS criteria with white blood cell count and elevated respiratory rate; however, the patient is not tachycardic and does not have a fever. The patient has evidence of mild end-organ damage with elevated creatinine, AST, and ALT. The patient has a known pneumonia. The patient will be treated with broad-spectrum antibiotics and a bolus as above. 3. New facial droop, altered mental status. The patient's altered mental status is likely related to toxic encephalopathy from her pneumonia. The patient's facial droop may be related to her currently dry mouth causing asymmetric movement on her teeth. It could also be related to recrudescence of underlying previous injury as the patient does have known left-sided neurologic deficits, though no known history of cerebrovascular accident. The patient is outside of the tPA window. The patient will be evaluated for acute stroke with a brain MRI and an MRA of her head and neck to look for large vessel occlusion. If these are positive, neurology consultation will be obtained. The patient has been given aspirin, will not be started on clopidogrel at this time. Further workup pending results of MRI. The patient will have a bedside dysphagia screening and then will be able to resume a heart healthy diet. 4. Hypertension. Continue the patient's labetalol. Hold her felodipine and chlorthalidone as she is currently normotensive without receiving these medications this morning. 5. Bipolar disorder. Continue the patient's Abilify and lithium. 6. Hypothyroidism. Continue the patient's levothyroxine. 7. DVT prophylaxis. The patient will have heparin subcu. The patient is a high risk. 8. Code status. The patient would like to be a full code. The patient's surrogate decision maker is her friend, Mary Gregg as above. 9. Disposition. The patient is admitted inpatient. 10. FEN. The patient will have her fluid bolus and then no further fluids. We will monitor closely. The patient will have a heart healthy diet without caffeine when she passes her dysphagia screening. TIME SPENT: Approximately 75 minutes were spent on this admission of this patient, 30 of which were spent [id number] with the patient obtaining history and physical and discussing treatment plan. This plan has been discussed with my attending, Dr. Stewart Jung, he is in agreement. CRISTEL MENDOZA [id number]/[facility] #: [id number] [place]
[2018-03-08] MEDS: Mometasone 220 MCG MDI INH SCH (19:48)
[2018-03-08] MEDS ORDERED: Labetalol TAB* 200 MG PO SCH (21:00)
[2018-03-08] MEDS: Lithium Carbonate TAB* 300 MG PO SCH (21:42)
[2018-03-08] MEDS: guaiFENesin ER TAB 600 MG PO SCH (21:42)
[2018-03-08] MEDS: Atorvastatin* 40 MG TAB PO SCH (21:42)
[2018-03-08] MEDS: Pantoprazole TAB * 40 MG TAB PO SCH (21:43)
[2018-03-08] MEDS: Labetalol TAB* 200 MG PO SCH (21:50)
[2018-03-09] MEDS: Levothyroxine TAB* 150 MCG TAB PO SCH (05:34)
[2018-03-09] MEDS: Heparin VIAL(*) 5000 UNITS/ML VIAL (FIVE THOUSAND) SUBCUT SCH ×3 (05:34→20:02)
[2018-03-09 07:16] LABS: ABS Basophils 0 10^3/ul (0-0.2); ABS Eosinophils 0.1 10^3/ul (0-0.6); ABS Lymphocytes 0.8 10^3/ul (1.0-4.8); ABS Monocytes 0.7 10^3/ul (0-0.8); ABS Neutrophils 21.1 10^3/ul (1.5-7.7); ABS Nucleated RBC 0 10^3/ul; Eosinophil % 0.4 %; Hematocrit 34 % (35-47); Hemoglobin 11.4 g/dl (12.0-16.0); Lymphocyte % 3.6 %; Mean Corpuscular HGB Conc 34 g/dl (31-36); Mean Corpuscular Hemoglobin 31 pg (27-31); Mean Corpuscular Volume 91 fL (80-97); Mean Platelet Volume 7.8 fL (7.4-10.4); Nucleated Red Blood Cells % 0; Platelet Count 294 10^3/ul (150-450); Red Blood Count 3.72 10^6/ul (4.00-5.40); Red Cell Distribution Width 16 % (10.5-15); White Blood Count 22.7 10^3/ul (3.5-10.8)
[2018-03-09 07:23] LABS: Albumin 3.2 g/dL (3.2-5.2); BUN/Creatinine Ratio 20.5 (8-20); Calcium 10.2 mg/dL (8.6-10.3); EGFR African American 81.3 (>60); EGFR Non-African American 67.2 (>60); Globulin 3.1 g/dL (2-4); Magnesium 1.9 mg/dL (1.9-2.7); Total Bilirubin 0.9 mg/dL (0.2-1.0); Total Protein 6.3 g/dL (6.4-8.9)
[2018-03-09] MEDS: Mometasone 220 MCG MDI INH SCH ×4 (07:49→20:41)
[2018-03-09] MEDS: PTO: Umeclidinium 62.5 MDI(NF) MDI INH SCH (09:01)
[2018-03-09] MEDS: Lithium Carbonate TAB* 300 MG PO SCH ×2 (09:03→19:40)
[2018-03-09] MEDS: Pantoprazole TAB * 40 MG TAB PO SCH ×2 (09:04→19:40)
[2018-03-09] MEDS: Multivitamins/Minerals TAB PO SCH (09:06)
[2018-03-09] MEDS: Labetalol TAB* 200 MG PO SCH ×2 (09:07→19:49)
[2018-03-09] MEDS: guaiFENesin ER TAB 600 MG PO SCH ×2 (09:09→19:39)
[2018-03-09] MEDS ORDERED: NS 0.9% 1000 ML** 1,000 ML IV SCH (11:00)
[2018-03-09] MEDS: Azithromycin IV(*) 250 MG in NS 0.9% 250 ML* 250 ML IVPB SCH (11:14)
[2018-03-09] MEDS: cefTRIAXone(*) 1 GM in NS 0.9% 50 ML* 50 ML IVPB SCH (14:16)
[2018-03-09] MEDS: KCL 20 MEQ/100 ML IVPREMIX* 20 MEQ/100 ML BAG IV SCH ×2 (15:12→19:38)
--- NOTE | 2018-03-09 16:30 | PN ---
Subjective Date of Service: 03/09/18 Interval History: Ms. Cavanaugh remains drowsy today. She has an aide at the bedside who does not know her well, but feels as though she is significantly altered from her baseline. He reports that she typically works daily and is very active and talkative. She did attempt to speak to me, though her speech was incoherent. She does not seem to be in pain. Spoke with assisted manage, Patty, to give updates. Family History: Unchanged from Admission Social History: Unchanged from Admission Past Medical History: Unchanged from Admission Objective Active Medications: Acetaminophen (Tylenol Tab*) 650 mg PO Q6H PRN FEVER/PAIN Albuterol/Ipratropium (Duoneb (Albuterol 2.5 Mg/Ipratropium 0.5 Mg)) 1 neb INH Q6H PRN SOB/WHEEZING Atorvastatin Calcium (Lipitor*) 80 mg PO BEDTIME AMI Benzonatate (Tessalon Cap*) 100 mg PO BID PRN COUGH Guaifenesin (Mucinex*) 1,200 mg PO BID AMI Heparin Sodium (Porcine) (Heparin Vial(*)) 5,000 units SUBCUT Q8HR AMI Ceftriaxone Sodium 1 gm/ (Sodium Chloride) 50 mls @ 200 mls/hr IVPB Q24H AMI Azithromycin 250 mg/ Sodium (Chloride) 250 mls @ 250 mls/hr IVPB Q24H AMI Lactated Ringer's (Lactated Ringers 1000 Ml Bag*) 1,500 mls @ 1,000 mls/hr IV .BOLUS AMI Sodium Chloride (Ns 0.9% 1000 Ml*) 1,000 mls @ 150 mls/hr IV PER RATE AMI Potassium Chloride (Potassium Chloride 20 Meq/100 Ml Ivpremix*) 20 meq in 100 mls @ 50 mls/hr IV Q2H AMI Labetalol HCl (Trandate Tab*) 200 mg PO BID AMI Levothyroxine Sodium (Synthroid Tab*) 150 mcg PO QAM@0600 AMI [place] Carbonate ([place] Carbonate Tab*) 300 mg PO BID AMI Mometasone Furoate (Asmanex 220 Mcg Mdi *) 2 puff INH BID AMI Multivitamins/Minerals (Theragran/Minerals Tab*) 1 tab PO DAILY AMI Ondansetron HCl (Zofran Inj*) 4 mg IV Q6H PRN NAUSEA Pantoprazole Sodium (Protonix Tab (Nf)) 40 mg PO BID AMI Umeclidinium [place] (Incruse Ellipta Mdi (Nf)) 1 inh INH DAILY AMI Vital Signs - 8 hr 03/09/18 11:30 Temperature 98.5 F Pulse Rate 78 Respiratory 20 Rate Blood Pressure 124/57 (mmHg) O2 Sat by Pulse 93 Oximetry Oxygen Devices in Use Now: Nasal Cannula - 3L Appearance: Elderly female laying in bed in NAD Eyes: No Scleral Icterus Ears/Nose/Mouth/Throat: - - Mucous membranes extremely dry Neck: NL Appearance and Movements; NL JVP Respiratory: Symmetrical Chest Expansion and Respiratory Effort, Clear to Auscultation Cardiovascular: NL Sounds; No Murmurs; No JVD, RRR Abdominal: NL Sounds; No Tenderness; No Distention Extremities: No Edema Skin: No Rash or Ulcers Neurological: - - Oriented to self, drowsy Lines/Tubes/Other Access: Clean, Dry and Intact Peripheral IV Result Diagrams: 03/09/18 06:36 03/09/18 06:36 Assess/Plan/Problems-Billing Assessment: Ms. Cavanaugh is a 72 yo F with PMH of developmental delay, COPD, HTN, bipolar, and hypothyroidism; who presented to the ED with because of AMS and lethargy and was found to have sepsis secondary to community-acquired pneumonia. - Patient Problems (1) Community acquired pneumonia Code(s): J18.9 - PNEUMONIA, UNSPECIFIED ORGANISM Comment: - CxR reportedly shows multifocal consolidation - Negative strep and legionella urine antigens - Continue ceftriaxone, azithromycin, Mucinex (2) Septic encephalopathy Code(s): G93.41 - METABOLIC ENCEPHALOPATHY Comment: - Secondary to community acquired pneumonia - Continues to have facial droop, though mucous membranes are very dry and this is likely a large contributing factor - MRI/MRA unremarkable for any acute findings - Will give 2 additional liters of NS (3) Sepsis Comment: - Secondary to community acquired pneumonia - Met sepsis 2 criteria on admission with tachypnea, leukocytosis, confirmed source of infection, and end organ dysfunction; met qSOFA criteria with tachypnea and AMS - Plan as above (4) Hypertension Code(s): I10 - ESSENTIAL (PRIMARY) HYPERTENSION Comment: - Normotensive, SBP 110-120s - Hold chlorthalidone, felodipine - Continue labetalol (5) Bipolar depression Code(s): F31.30 - BIPOLAR DISORD, CRNT EPSD DEPRESS, MILD OR MOD SEVERT, UNSP Comment: - Continue lithium (therapeutic on current dosing) (6) Hypothyroidism Code(s): E03.9 - HYPOTHYROIDISM, UNSPECIFIED Comment: - Continue levothyroxine (7) Developmental delay, moderate Code(s): R62.50 - UNSP LACK OF EXPECTED NORMAL PHYSIOL DEV IN CHILDHOOD Comment: - Supportive care (8) DVT prophylaxis Comment: - Heparin SQ (9) Full code status Code(s): Z78.9 - OTHER SPECIFIED HEALTH STATUS Comment: Status and Disposition: Inpatient for acute infection requiring IV antibiotics. Anticipate d/c back to assisted when medically stable, likely 2-3 more days. Attending: Ken Adkins
[2018-03-09] MEDS ORDERED: Vancomycin(*) 1,000 MG in NS 0.9% 250 ML* 250 ML IVPB ONE (18:09)
[2018-03-09] MEDS: Atorvastatin* 40 MG TAB PO SCH (19:39)
[2018-03-09 20:40] LABS: Influenza A Molecular NEGATIVE (Negative); Influenza B Molecular NEGATIVE (Negative)
--- NOTE | 2018-03-10 03:39 | PN ---
Hospitalist Progress Note Date of Service: 03/10/18 Called by RN patient has >900ml on bladder scan - will place [facility].
[2018-03-10 06:46] LABS: ABS Basophils 0.1 10^3/ul (0-0.2); ABS Eosinophils 0.1 10^3/ul (0-0.6); ABS Lymphocytes 0.8 10^3/ul (1.0-4.8); ABS Monocytes 0.7 10^3/ul (0-0.8); ABS Neutrophils 15.3 10^3/ul (1.5-7.7); ABS Nucleated RBC 0 10^3/ul; Eosinophil % 0.7 %; Hematocrit 33 % (35-47); Hemoglobin 10.9 g/dl (12.0-16.0); Lymphocyte % 4.8 %; Mean Corpuscular HGB Conc 33 g/dl (31-36); Mean Corpuscular Hemoglobin 30 pg (27-31); Mean Corpuscular Volume 92 fL (80-97); Mean Platelet Volume 7.9 fL (7.4-10.4); Nucleated Red Blood Cells % 0; Platelet Count 289 10^3/ul (150-450); Red Blood Count 3.61 10^6/ul (4.00-5.40); Red Cell Distribution Width 16 % (10.5-15)
[2018-03-10 07:11] LABS: BUN/Creatinine Ratio 16.7 (8-20); Calcium 10.1 mg/dL (8.6-10.3); EGFR African American 80.2 (>60); EGFR Non-African American 66.3 (>60); Potassium 3.3 mmol/L (3.5-5.0)
[2018-03-10] MEDS: Heparin VIAL(*) 5000 UNITS/ML VIAL (FIVE THOUSAND) SUBCUT SCH ×3 (07:17→21:03)
[2018-03-10] MEDS: Levothyroxine TAB* 150 MCG TAB PO SCH (07:20)
[2018-03-10] MEDS: Labetalol TAB* 200 MG PO SCH (08:47)
[2018-03-10] MEDS: guaiFENesin ER TAB 600 MG PO SCH ×2 (08:47→19:36)
[2018-03-10] MEDS: Lithium Carbonate TAB* 300 MG PO SCH ×2 (08:47→21:02)
[2018-03-10] MEDS: Pantoprazole TAB * 40 MG TAB PO SCH ×2 (08:47→19:39)
[2018-03-10] MEDS: Multivitamins/Minerals TAB PO SCH (08:47)
[2018-03-10] MEDS: Mometasone 220 MCG MDI INH SCH ×2 (08:50→20:07)
[2018-03-10] MEDS: PTO: Umeclidinium 62.5 MDI(NF) MDI INH SCH (08:52)
[2018-03-10 09:49] LABS: Magnesium 2.1 mg/dL (1.9-2.7)
[2018-03-10] MEDS ORDERED: NS 0.9% w/ 20 Meq KCL 1000 ML* 1,000 ML IV SCH (10:00)
[2018-03-10 10:10] LABS: TSH (Thyroid Stimulating Horm) 0.68 mcIU/mL (0.34-5.60)
[2018-03-10] MEDS: KCL 20 MEQ/100 ML IVPREMIX* 20 MEQ/100 ML BAG IV SCH ×2 (10:19→12:38)
--- NOTE | 2018-03-10 13:28 | PN ---
Subjective Date of Service: 03/10/18 Interval History: Ms. Cavanaugh is feeling better today. She is much more alert and able to converse to some degree. She denies pain. C/o dry mouth and drinks water frequently. She denies SOB, CP, N/V. Received call from nurse this morning. Pt had sudden onset ventricular standstill, approx 10 seconds, while awake and laying in bed. She immediately vomited after the episode. Spontaneously converted back to NSR in the 70s. Family History: Unchanged from Admission Social History: Unchanged from Admission Past Medical History: Unchanged from Admission Objective Active Medications: Acetaminophen (Tylenol Tab*) 650 mg PO Q6H PRN FEVER/PAIN Albuterol/Ipratropium (Duoneb (Albuterol 2.5 Mg/Ipratropium 0.5 Mg)) 1 neb INH Q6H PRN SOB/WHEEZING Atorvastatin Calcium (Lipitor*) 80 mg PO BEDTIME AMI Benzonatate (Tessalon Cap*) 100 mg PO BID PRN COUGH Guaifenesin (Mucinex*) 1,200 mg PO BID AMI Heparin Sodium (Porcine) (Heparin Vial(*)) 5,000 units SUBCUT Q8HR AMI Ceftriaxone Sodium 1 gm/ (Sodium Chloride) 50 mls @ 200 mls/hr IVPB Q24H AMI Azithromycin 250 mg/ Sodium (Chloride) 250 mls @ 250 mls/hr IVPB Q24H AMI Potassium Chloride (Potassium Chloride 20 Meq/100 Ml Ivpremix*) 20 meq in 100 mls @ 50 mls/hr IV Q2H AMI Potassium Chloride/Sodium Chloride (Ns 0.9% W/ 20 Meq Kcl 1000 Ml*) 1,000 mls @ 125 mls/hr IV PER RATE AMI Levothyroxine Sodium (Synthroid Tab*) 150 mcg PO QAM@0600 AMI Lisinopril (Prinivil Tab*) 10 mg PO DAILY AMI [place] Carbonate ([place] Carbonate Tab*) 300 mg PO BID AMI Mometasone Furoate (Asmanex 220 Mcg Mdi *) 2 puff INH BID AMI Multivitamins/Minerals (Theragran/Minerals Tab*) 1 tab PO DAILY AMI Ondansetron HCl (Zofran Inj*) 4 mg IV Q6H PRN NAUSEA Pantoprazole Sodium (Protonix Tab (Nf)) 40 mg PO BID AMI Umeclidinium [place] (Incruse Ellipta Mdi (Nf)) 1 inh INH DAILY AMI Vital Signs - 8 hr 03/10/18 03/10/18 03/10/18 07:25 07:57 08:00 Temperature 98.2 F Pulse Rate 70 Respiratory 28 18 Rate Blood Pressure 117/56 (mmHg) O2 Sat by Pulse 96 3 Oximetry 03/10/18 03/10/18 09:22 11:34 Temperature 98.7 F Pulse Rate 71 70 Respiratory 20 Rate Blood Pressure 120/72 108/55 (mmHg) O2 Sat by Pulse 98 Oximetry Oxygen Devices in Use Now: Nasal Cannula - 3L Appearance: Elderly female laying in bed in NAD Eyes: No Scleral Icterus Ears/Nose/Mouth/Throat: - - Dry mucous membranes Neck: NL Appearance and Movements; NL JVP, Trachea Midline Respiratory: Symmetrical Chest Expansion and Respiratory Effort, - - Rhonchi throughout Cardiovascular: NL Sounds; No Murmurs; No JVD, RRR Abdominal: NL Sounds; No Tenderness; No Distention Extremities: No Edema Skin: No Rash or Ulcers Neurological: - - Oriented to self Lines/Tubes/Other Access: Clean, Dry and Intact Peripheral IV Nutrition: Taking PO's Result Diagrams: 03/10/18 06:10 03/10/18 06:10 Assess/Plan/Problems-Billing Assessment: Ms. Cavanaugh is a 72 yo F with PMH of developmental delay, COPD, HTN, bipolar, and hypothyroidism; who presented to the ED with because of AMS and lethargy and was found to have sepsis secondary to community-acquired pneumonia. - Patient Problems (1) Ventricular arrhythmia Code(s): I49.9 - CARDIAC ARRHYTHMIA, UNSPECIFIED Comment: - Tele shows 10 seconds of ventricular standstill with normal P waves, then a 2: 1 conduction and a few short pauses for approx 20 seconds, then spontaneous conversion to NSR in the 70s; 1 episode of emesis following this - Place transcutaneous pacer pads and keep external pacer at bedside at this time - Appreciate Cardiology consult; possible pacer placement - Stop labetalol (2) Community acquired pneumonia Code(s): J18.9 - PNEUMONIA, UNSPECIFIED ORGANISM Comment: - CxR reportedly shows multifocal consolidation - Negative strep and legionella urine antigens - Continue ceftriaxone, azithromycin, Mucinex (3) Septic encephalopathy Code(s): G93.41 - METABOLIC ENCEPHALOPATHY Comment: - Secondary to community acquired pneumonia - Greatly improved since yesterday, awake and alert - Continues to have minor facial droop and unclear speech secondary to dry mucous membranes - MRI/MRA unremarkable for any acute findings - Will give 1L NS today (4) Sepsis Comment: - Secondary to community acquired pneumonia - Met sepsis 2 criteria on admission with tachypnea, leukocytosis, confirmed source of infection, and end organ dysfunction; met qSOFA criteria with tachypnea and AMS - Plan as above (5) Hypertension Code(s): I10 - ESSENTIAL (PRIMARY) HYPERTENSION Comment: - Normotensive, SBP 100-120s - Hold chlorthalidone, felodipine - Stop labetalol d/t concern for bradycardia - Start lisinopril (6) Bipolar depression Code(s): F31.30 - BIPOLAR DISORD, CRNT EPSD DEPRESS, MILD OR MOD SEVERT, UNSP Comment: - Continue lithium (therapeutic on current dosing) (7) Hypothyroidism Code(s): E03.9 - HYPOTHYROIDISM, UNSPECIFIED Comment: - Continue levothyroxine (8) Developmental delay, moderate Code(s): R62.50 - UNSP LACK OF EXPECTED NORMAL PHYSIOL DEV IN CHILDHOOD Comment: - Supportive care (9) DVT prophylaxis Comment: - Heparin SQ (10) Full code status Code(s): Z78.9 - OTHER SPECIFIED HEALTH STATUS Comment: Status and Disposition: Inpatient for acute infection requiring IV antibiotics. Anticipate d/c back to nursing home when medically stable, likely 2-3 more days.
[2018-03-10] MEDS: Azithromycin IV(*) 250 MG in NS 0.9% 250 ML* 250 ML IVPB SCH (13:56)
[2018-03-10] MEDS: cefTRIAXone(*) 1 GM in NS 0.9% 50 ML* 50 ML IVPB SCH (15:09)
--- NOTE | 2018-03-10 16:00 | CONS ---
CC: Hospitalist Service; Dr. Luevano; Dr. Antoine CONSULTATION REPORT: DATE OF CONSULT: 03/10/18 HISTORY OF PRESENT ILLNESS: I was asked by hospitalist service to see this 72-year- old female patie nt who does have developmental delay, bipolar disorder, hypertension, COPD, and presented with sepsis and pneumonia. Cardiology consult was requested because in the monitor today this morning, the jerrod ent had multiple "ventricular standstill." There was P-waves, but then after that there was a pause. The longest one was about up to 10 seconds. The patient I was told was awake during those episodes . The patient with developmental delay and history was obtained from the H and P from the hospitalis t service and also on talking to the hospitalist service and reviewing records. It was noticed that on 03/08/18, the patient's potassium was 2.6 and today it is only 3.3 that could be contributing. The re is no documented history of coronary artery disease, no congestive heart failure, no myocardial in farction. She does have a history of emphysema, bipolar disorder, hypertension, hyperlipidemia, and hypothyroidism, on medical treatment. There is also history of colon polyps and iron deficiency anemi a. she presented with change in mental status, pneumonia, and bacteremia. There is no nausea, no vo miting, no hematochezia. She was placed on oxygen and hospitalized. She is receiving treatment for her pneumonia with antibiotics treatment and currently azithromycin and ceftriaxone. No fever and no chills at the present time. PAST MEDICAL HISTORY: Include history of developmental delay, emphysema, bipolar disorder, hypertens ion, hyperlipidemia, and hypothyroidism. PAST SURGICAL HISTORY: Includes hysterectomy. MEDICATIONS: As an outpatient include: 1. Levothyroxine 125 mcg daily. 2. Felodipine 10 mg daily. 3. Vitamin D 1000 units daily. 4. Labetalol 200 mg twice a day. 5. Flovent 200 mcg b.i.d. 6. [place] 300 mg b.i.d. 7. Multivitamins one daily. 8. Omeprazole 20 mg twice a day. 9. Tylenol 650 q.6 hours as needed. 10. Chlorthalidone 25 mg daily. Medications as an inpatient include: 1. Tylenol 650 mg q.6 hours. 2. DuoNeb treatment. 3. Lipitor 80 mg daily. 4. Ceftriaxone 1 g daily. 5. Azithromycin 250 mg daily. 6. Heparin 5000 units subcu q.8 hours. 7. Synthroid 150 mcg daily. 8. Lisinopril 10 mg daily. 9. [place] 300 mg twice a day. 10. Protonix 40 mg twice a day. ALLERGIES: SEASONAL allergies. FAMILY HISTORY: Unknown. SOCIAL HISTORY: Extensive smoking history and reports quit 20 years ago. No history of drug abuse o r illicit drug abuse. REVIEW OF SYSTEMS: Review of all other system as essentially negative. PHYSICAL EXAM: On exam, she does have definitely developmental delay. No doubt about that, but she is awake, she is alert. She does not seem to be in acute distress. Vitals appear to be stable. Blo od pressure 120/70. She is afebrile. Head and neck: Normocephalic, atraumatic. Head, Ears, Nose, a nd Throat: Essentially benign. Neck: Supple. JVP is not elevated. No carotid bruit. Chest: Dimin ished air entry at the bases with rhonchi at the bases. Heart: Normal S1, S2, sinus. No added sound s. No gallops. Abdomen: Benign. Positive bowel sounds. Extremities: No edema, no cyanosis, and no clubbing. Psych: Not able to evaluate. Skin: No significant skin abnormalities is appreciated. DIAGNOSTIC STUDIES/LAB DATA: Her labs showed the following: Sodium is 149 today, potassium 3.3, chl oride 116, BUN 14, creatinine 0.84. LFTs: AST 81, ALT 73, alkaline phosphatase 108, troponins are n egative at 0.01, BNP 248, triglycerides 57, cholesterol 165, LDL 66, HDL 87. Her white blood cell in itially 27.3, it is 17,000 today, hemoglobin 10.9, hematocrit is 33, platelets 289. Her EKG, the patient is in sinus rhythm, that was on 03/08/18, heart rate 81 beats per minute. LVH, nonspecific T-wave abnormality, midline artifact. IMPRESSION: The patient is a 72-year-old female with: 1. Developmental delay, from assisted facility brought in. 2. Sepsis and pneumonia, significant leukocytosis. 3. Significant hypokalemia, potassium is low after 2 days of admission. 4. Hypothyroidism. 5. Systemic arterial hypertension. 6. Hyperlipidemia. 7. On the monitor, there was an episode of ventricular "standstill." There is no recurrence. The p atient was reported to be awake. 8. Unknown current left ventricular systolic function. PLAN/RECOMMENDATIONS: I have discussed this with the hospitalist service. It is very important as w e are doing treatment with her sepsis and pneumonia. It is very important to keep her potassium 4 or more and magnesium 2 or more. Very important hydration, very important antibiotic treatment as we we re doing. I think it is important to monitor her for now. Contributing factor to this could be her sepsis, which appears to be significant, significant hypokalemia and dehydration. I agree with juliana vidalg an echo to evaluate her left ventricular systolic function. We will keep a very close eye on he r, its complex situation. She does have developmental delay. I understand hospitalist service is in touch with the decision maker for this patient. We will follow this very closely and will make furt her recommendations accordingly. I discussed this with the hospitalist service and discussed this w ith the aide with the patient from the developmental facility. We will follow this very closely and we will make further recommendations accordingly. TIME SPENT: More than half of at least 60 plus minutes was in the education, counseling mode, and en flores further discussion or recommendations. [id number]/[facility] #: [id number]
[2018-03-10 18:18] LABS: BUN/Creatinine Ratio 15.1 (8-20); Calcium 9.8 mg/dL (8.6-10.3); EGFR Non-African American 64.5 (>60)
[2018-03-10] MEDS ORDERED: D5W 1/4 NS 20 Meq KCL 1000 ML* 1,000 ML IV SCH (19:00)
[2018-03-10] MEDS ORDERED: NS 0.45% KCl 20 Meq 1000 ML* 1,000 ML IV SCH (19:00)
[2018-03-10] MEDS: Atorvastatin* 40 MG TAB PO SCH (19:36)
[2018-03-10 20:39] LABS: BUN/Creatinine Ratio 14.9 (8-20); Calcium 9.8 mg/dL (8.6-10.3); EGFR Non-African American 63.6 (>60); Potassium 3.7 mmol/L (3.5-5.0)
--- NOTE | 2018-03-10 21:52 | PN ---
Hospitalist Progress Note Date of Service: 03/10/18 HOSPITALIST ADDENDUM Laboratory Tests 03/10/18 20:17 Sodium 152 H Potassium 3.7 Chloride 122 H Carbon Dioxide 26 Anion Gap 4 BUN 13 Glucose 112 H Calcium 9.8 Sodium level still elevated - will change fluids to D5W at 125ml/h and continue to monitor.
[2018-03-10] MEDS ORDERED: D5W 1000 ML BAG* 1,000 ML IV SCH (22:00)
[2018-03-11 01:01] LABS: BUN/Creatinine Ratio 14.8 (8-20); Calcium 9.9 mg/dL (8.6-10.3); EGFR Non-African American 62.8 (>60); Potassium 3.6 mmol/L (3.5-5.0)
[2018-03-11] MEDS: Levothyroxine TAB* 150 MCG TAB PO SCH (05:09)
[2018-03-11] MEDS: Heparin VIAL(*) 5000 UNITS/ML VIAL (FIVE THOUSAND) SUBCUT SCH ×3 (05:10→20:28)
[2018-03-11 06:35] LABS: ABS Basophils 0.1 10^3/ul (0-0.2); ABS Eosinophils 0.3 10^3/ul (0-0.6); ABS Lymphocytes 1.1 10^3/ul (1.0-4.8); ABS Monocytes 0.7 10^3/ul (0-0.8); ABS Neutrophils 9.8 10^3/ul (1.5-7.7); ABS Nucleated RBC 0 10^3/ul; Eosinophil % 2.1 %; Hematocrit 36 % (35-47); Hemoglobin 11.7 g/dl (12.0-16.0); Lymphocyte % 9.2 %; Mean Corpuscular HGB Conc 33 g/dl (31-36); Mean Corpuscular Hemoglobin 30 pg (27-31); Mean Corpuscular Volume 93 fL (80-97); Nucleated Red Blood Cells % 0; Platelet Count 309 10^3/ul (150-450); Red Blood Count 3.86 10^6/ul (4.00-5.40); Red Cell Distribution Width 16 % (10.5-15)
[2018-03-11 06:54] LABS: EGFR Non-African American 64.5 (>60); Potassium 3.4 mmol/L (3.5-5.0)
[2018-03-11] MEDS: Mometasone 220 MCG MDI INH SCH ×2 (07:44→20:44)
[2018-03-11] MEDS ORDERED: D5W 20 MEQ KCL 1000 ML BAG* 1,000 ML IV SCH (08:00)
[2018-03-11] MEDS: KCL 20 MEQ/100 ML IVPREMIX* 20 MEQ/100 ML BAG IV SCH ×2 (08:17→11:04)
[2018-03-11] MEDS: Lithium Carbonate TAB* 300 MG PO SCH ×2 (08:17→19:30)
[2018-03-11] MEDS: Pantoprazole TAB * 40 MG TAB PO SCH ×2 (08:17→19:29)
[2018-03-11] MEDS: guaiFENesin ER TAB 600 MG PO SCH ×2 (08:17→19:29)
[2018-03-11] MEDS: Lisinopril TAB* 10 MG PO SCH (08:17)
[2018-03-11] MEDS: Multivitamins/Minerals TAB PO SCH (08:17)
[2018-03-11] MEDS: PTO: Umeclidinium 62.5 MDI(NF) MDI INH SCH (08:18)
[2018-03-11] MEDS: Azithromycin IV(*) 250 MG in NS 0.9% 250 ML* 250 ML IVPB SCH (13:36)
--- NOTE | 2018-03-11 14:30 | PN ---
Subjective Date of Service: 03/11/18 Interval History: Ms. Cavanaugh is frustrated this morning as she felt as though her aide was short with her and did not give her enough time to eat before taking her food. Otherwise, she offers no complaints. Denies CP, SOB, N/V, dizziness. Family History: Unchanged from Admission Social History: Unchanged from Admission Past Medical History: Unchanged from Admission Objective Active Medications: Acetaminophen (Tylenol Tab*) 650 mg PO Q6H PRN FEVER/PAIN Albuterol/Ipratropium (Duoneb (Albuterol 2.5 Mg/Ipratropium 0.5 Mg)) 1 neb INH Q6H PRN SOB/WHEEZING Atorvastatin Calcium (Lipitor*) 80 mg PO BEDTIME AMI Benzonatate (Tessalon Cap*) 100 mg PO BID PRN COUGH Guaifenesin (Mucinex*) 1,200 mg PO BID AMI Heparin Sodium (Porcine) (Heparin Vial(*)) 5,000 units SUBCUT Q8HR AMI Ceftriaxone Sodium 1 gm/ (Sodium Chloride) 50 mls @ 200 mls/hr IVPB Q24H AMI Azithromycin 250 mg/ Sodium (Chloride) 250 mls @ 250 mls/hr IVPB Q24H AMI Potassium Chloride/Dextrose (D5w 20 Meq Kcl 1000 Ml Bag*) 1,000 mls @ 100 mls/ hr IV PER RATE AMI Levothyroxine Sodium (Synthroid Tab*) 150 mcg PO QAM@0600 AMI Lisinopril (Prinivil Tab*) 10 mg PO DAILY AMI [place] Carbonate ([place] Carbonate Tab*) 300 mg PO BID AMI Mometasone Furoate (Asmanex 220 Mcg Mdi *) 2 puff INH BID AMI Multivitamins/Minerals (Theragran/Minerals Tab*) 1 tab PO DAILY AMI Ondansetron HCl (Zofran Inj*) 4 mg IV Q6H PRN NAUSEA Pantoprazole Sodium (Protonix Tab (Nf)) 40 mg PO BID AMI Umeclidinium [place] (Incruse Ellipta Mdi (Nf)) 1 inh INH DAILY AMI Vital Signs - 8 hr 03/11/18 03/11/18 03/11/18 07:33 08:00 11:31 Temperature 98.5 F 99.2 F Pulse Rate 69 88 Respiratory 24 18 28 Rate Blood Pressure 131/56 124/55 (mmHg) O2 Sat by Pulse 93 93 92 Oximetry Oxygen Devices in Use Now: Nasal Cannula - 3L Appearance: Elderly female sitting in bed in NAD Eyes: No Scleral Icterus Ears/Nose/Mouth/Throat: Mucous Membranes Moist Neck: NL Appearance and Movements; NL JVP, Trachea Midline Respiratory: Symmetrical Chest Expansion and Respiratory Effort, Clear to Auscultation - Diminished Cardiovascular: NL Sounds; No Murmurs; No JVD, RRR Abdominal: NL Sounds; No Tenderness; No Distention Extremities: No Edema Neurological: - - Oriented to self and place Lines/Tubes/Other Access: Clean, Dry and Intact Peripheral IV Nutrition: Taking PO's Result Diagrams: 03/11/18 05:59 03/11/18 05:59 Assess/Plan/Problems-Billing Assessment: Ms. Cavanaugh is a 72 yo F with PMH of developmental delay, COPD, HTN, bipolar, and hypothyroidism; who presented to the ED with because of AMS and lethargy and was found to have sepsis secondary to community-acquired pneumonia. - Patient Problems (1) Community acquired pneumonia Code(s): J18.9 - PNEUMONIA, UNSPECIFIED ORGANISM Comment: - CxR reportedly shows multifocal consolidation - Negative strep and legionella urine antigens - Slow recovery, still requiring 3L NC - Continue ceftriaxone, azithromycin, Mucinex (2) High degree atrioventricular block Code(s): I44.39 - OTHER ATRIOVENTRICULAR BLOCK Comment: - On 03/10 tele showed 10 seconds of ventricular standstill with normal P waves, then a 2:1 conduction and a few short pauses for approx 20 more seconds, then spontaneous conversion to NSR in the 70s; accompanied by 1 episode of emesis - No further abnormalities on tele - Keep transcutaneous pacer pads in place - Appreciate Cardiology consult; possible pacer placement, though this may just be r/t current illness - Stopped labetalol (3) Hypokalemia Code(s): E87.6 - HYPOKALEMIA Comment: - Was 2.6 on admission, now improved but remains slightly low - Continue to replete as needed (4) Hypernatremia Code(s): E87.0 - HYPEROSMOLALITY AND HYPERNATREMIA Comment: - Secondary to dehydration - Continue D5w w/ 20meq KCl (5) Acute urinary retention Code(s): R33.8 - OTHER RETENTION OF URINE Comment: - Multifactorial - On 03/10 PVR was >900; Gil placed and drained 1200mL - Trial void today (6) Septic encephalopathy Code(s): G93.41 - METABOLIC ENCEPHALOPATHY Comment: - Secondary to community acquired pneumonia - Continues to improve daily, awake and alert - Facial droop resolved - MRI/MRA unremarkable for any acute findings (7) Sepsis Comment: - Secondary to community acquired pneumonia - Met sepsis 2 criteria on admission with tachypnea, leukocytosis, confirmed source of infection, and end organ dysfunction; met qSOFA criteria with tachypnea and AMS - Plan as above (8) Hypertension Code(s): I10 - ESSENTIAL (PRIMARY) HYPERTENSION Comment: - Normotensive, SBP 110-130s - Hold chlorthalidone, felodipine - Stopped labetalol d/t AV block - Continue lisinopril (9) Bipolar depression Code(s): F31.30 - BIPOLAR DISORD, CRNT EPSD DEPRESS, MILD OR MOD SEVERT, UNSP Comment: - Continue lithium (10) Hypothyroidism Code(s): E03.9 - HYPOTHYROIDISM, UNSPECIFIED Comment: - Continue levothyroxine (11) Developmental delay, moderate Code(s): R62.50 - UNSP LACK OF EXPECTED NORMAL PHYSIOL DEV IN CHILDHOOD Comment: - Supportive care (12) DVT prophylaxis Comment: - Heparin SQ (13) Full code status Code(s): Z78.9 - OTHER SPECIFIED HEALTH STATUS Comment: Status and Disposition: Inpatient for acute infection requiring IV antibiotics. Anticipate d/c back to half-way when medically stable, likely 2-3 more days. Attending: Ken Adkins
[2018-03-11] MEDS: cefTRIAXone(*) 1 GM in NS 0.9% 50 ML* 50 ML IVPB SCH (14:49)
[2018-03-11 17:13] LABS: Potassium 4.1 mmol/L (3.5-5.0)
[2018-03-11] MEDS: D5W 20 MEQ KCL 1000 ML BAG* 1,000 ML IV SCH ×2 (18:58→23:11)
[2018-03-11] MEDS: Atorvastatin* 40 MG TAB PO SCH (19:29)
[2018-03-12] MEDS: Heparin VIAL(*) 5000 UNITS/ML VIAL (FIVE THOUSAND) SUBCUT SCH ×3 (05:13→22:24)
[2018-03-12] MEDS: Levothyroxine TAB* 150 MCG TAB PO SCH (05:13)
[2018-03-12 06:56] LABS: ABS Basophils 0.1 10^3/ul (0-0.2); ABS Eosinophils 0.5 10^3/ul (0-0.6); ABS Lymphocytes 1.2 10^3/ul (1.0-4.8); ABS Monocytes 0.6 10^3/ul (0-0.8); ABS Neutrophils 8.9 10^3/ul (1.5-7.7); ABS Nucleated RBC 0 10^3/ul; Eosinophil % 4.7 %; Hematocrit 36 % (35-47); Hemoglobin 11.6 g/dl (12.0-16.0); Mean Corpuscular HGB Conc 32 g/dl (31-36); Mean Corpuscular Hemoglobin 30 pg (27-31); Mean Corpuscular Volume 92 fL (80-97); Mean Platelet Volume 7.6 fL (7.4-10.4); Nucleated Red Blood Cells % 0; Platelet Count 348 10^3/ul (150-450); Red Blood Count 3.89 10^6/ul (4.00-5.40); Red Cell Distribution Width 16 % (10.5-15); White Blood Count 11.3 10^3/ul (3.5-10.8)
[2018-03-12 07:26] LABS: Calcium 9.8 mg/dL (8.6-10.3); EGFR Non-African American 62.8 (>60); Potassium 3.8 mmol/L (3.5-5.0)
[2018-03-12] MEDS: Mometasone 220 MCG MDI INH SCH ×2 (08:54→20:38)
[2018-03-12] MEDS: D5W 20 MEQ KCL 1000 ML BAG* 1,000 ML IV SCH (10:22)
[2018-03-12] MEDS: Pantoprazole TAB * 40 MG TAB PO SCH ×2 (10:24→22:24)
[2018-03-12] MEDS: Multivitamins/Minerals TAB PO SCH (10:24)
[2018-03-12] MEDS: Lithium Carbonate TAB* 300 MG PO SCH ×2 (10:25→22:24)
[2018-03-12] MEDS: guaiFENesin ER TAB 600 MG PO SCH ×2 (10:25→22:26)
[2018-03-12] MEDS: Lisinopril TAB* 10 MG PO SCH (10:25)
--- NOTE | 2018-03-12 11:09 | ECHO ---
Patient: ROSALIA MONDRAGON [facility] Rec#: [id number] : 1945 Date: 03/12/2018 Age: 72y Height: 152.4 cm / 60.0 in Weight: 63.5 kg / 140.0 lbs Sex: F BSA: 1.6 Room#: 450 Admit Date#: 03/08/2018 Type: Inpatient Referring: Nat Alvarez Reading: Bi Everett MD Collision Worker: Any Carlin RDCS CC: Elif Luevano MD Transthoracic Echocardiogram Indication: Abn EKG BP: 104/64 HR: 81 Rhythm: NSR Findings History: Developmentally delayed, bipolae,HTN,COPD,HLD,hypothyroid. Technical Comments: The study quality is good. Completed at 1035. Left Ventricle: The left ventricular chamber size is normal. Mild to moderate concentric left ventricular hypertrophy is observed. There is normal left ventricular systolic function. The estimated ejection fraction is 55-60%. There is no consistent Doppler evidence of clinically significant diastolic dysfunction. Left Atrium: The left atrium is mildly dilated. Right Ventricle: The right ventricular cavity size is normal. The right ventricular global systolic function is normal. Right Atrium: The right atrial cavity size is normal. Aortic Valve: The aortic valve is trileaflet. There is no evidence of aortic regurgitation. There is no evidence of aortic stenosis. Mitral Valve: The mitral valve leaflets are mildly thickened. There is no evidence of mitral regurgitation. There is no evidence of mitral stenosis. Tricuspid Valve: The tricuspid valve leaflets are normal. There is trace to mild tricuspid regurgitation. The right ventricular systolic pressure is estimated to be 35-40 mmHg. There is no tricuspid stenosis. Pulmonic Valve: The pulmonic valve appears normal. There is trace to mild pulmonic regurgitation. There is no pulmonic stenosis. Pericardium: A pericardial fat pad is visualized. Aorta: There is mild dilatation of the ascending aorta. There is mild dilatation of the aortic arch. The aortic root is normal in size. Pulmonary Artery: The main pulmonary artery appears normal. Venous: The venous system is not well visualized. Summary: There was not any prior study for comparison. Conclusions Mild to moderate concentric left ventricular hypertrophy is observed. There is normal left ventricular systolic function. The estimated ejection fraction is 55-60%. The right ventricular global systolic function is normal. There is no evidence of aortic stenosis. There is no evidence of mitral regurgitation. There is trace to mild tricuspid regurgitation. The right ventricular systolic pressure is estimated to be 35-40 mmHg. Measurements Name Value Normal Range RVIDd (AP) 2D 2.9 cm (0.9 - 2.6) RVDdMajor (2D) 2.9 cm (2.2 - 4.4) RAd ISD 4CH 4.8 cm (3.4 - 4.9) RA (A4C)W 3.3 cm (2.9 - 4.6) IVSd (2D) 1.1 cm (0.6 - 1) LVPWd (2D) 1.4 cm (0.6 - 1) LVIDd (2D) 3.9 cm (3.6 - 5.4) LVIDs (2D) 2.7 cm - LV FS (2D) 33 % (25 - 45) Aortic Annulus 2.2 cm (1.4 - 2.6) Ao root diameter (2D) 2.9 cm (2.1 - 3.5) Ascending Ao 3.6 cm (2.1 - 3.4) Aortic arch 3.6 cm (1.8 - 3.4) Descending Ao 0.5 cm - LA dimension (AP) 2D 4.1 cm (2.3 - 3.8) LAd ISD 4CH 5.3 cm (2.9 - 5.3) Name Value Normal Range LA ESV SP 4CH (A/L) 37 ml - LA ESV SP 2CH (A/L) 35 ml - LA ESV BP (A/L) 37 ml - LA ESV BP (A/L) index 22.8 ml/m2 - LA ESV SP 4CH (MOD) 34 ml - LA ESV SP 2CH (MOD) 33 ml - Name Value Normal Range MV E-wave Vmax 0.8 m/sec - MV deceleration time 20 msec - MV A-wave Vmax 0.9 m/sec - MV E:A ratio 0.88 ratio - LV septal e' Vmax 0.07 m/sec - LV lateral e' Vmax 0.09 m/sec - Name Value Normal Range AV Vmax 1.4 m/sec - AV VTI 25.9 cm - AV peak gradient 7.47 mmHg - AV mean gradient 3.54 mmHg - LVOT Vmax 1.3 m/sec - LVOT VTI 19.6 cm - LVOT peak gradient 6.38 mmHg - LVOT mean gradient 2.54 mmHg - Name Value Normal Range TR Vmax 2.3 m/sec - TR peak gradient 22 mmHg - RAP 8 mmHg - RVSP 30 mmHg - Name Value Normal Range PV Vmax 1.3 m/sec - PV peak gradient 6.82 mmHg -
[2018-03-12] MEDS: Azithromycin IV(*) 250 MG in NS 0.9% 250 ML* 250 ML IVPB SCH (13:05)
[2018-03-12] MEDS: PTO: Umeclidinium 62.5 MDI(NF) MDI INH SCH (14:02)
--- NOTE | 2018-03-12 15:30 | PN ---
Subjective Date of Service: 03/12/18 Interval History: Ms. Cavanaugh is feeling much better today. Her house superintendent is at the bedside and feels as though she is not at her baseline, but close to it. The patient is sitting in the chair and is very excited to be out of bed. She denies SOB or CP. No N/V. Appetite improved. Family History: Unchanged from Admission Social History: Unchanged from Admission Past Medical History: Unchanged from Admission Objective Active Medications: Acetaminophen (Tylenol Tab*) 650 mg PO Q6H PRN FEVER/PAIN Albuterol/Ipratropium (Duoneb (Albuterol 2.5 Mg/Ipratropium 0.5 Mg)) 1 neb INH Q6H PRN SOB/WHEEZING Atorvastatin Calcium (Lipitor*) 80 mg PO BEDTIME AMI Benzonatate (Tessalon Cap*) 100 mg PO BID PRN COUGH Guaifenesin (Mucinex*) 1,200 mg PO BID AMI Heparin Sodium (Porcine) (Heparin Vial(*)) 5,000 units SUBCUT Q8HR AMI Ceftriaxone Sodium 1 gm/ (Sodium Chloride) 50 mls @ 200 mls/hr IVPB Q24H AMI Azithromycin 250 mg/ Sodium (Chloride) 250 mls @ 250 mls/hr IVPB Q24H AMI Potassium Chloride/Dextrose (D5w 20 Meq Kcl 1000 Ml Bag*) 1,000 mls @ 125 mls/ hr IV PER RATE AMI Levothyroxine Sodium (Synthroid Tab*) 150 mcg PO QAM@0600 AMI Lisinopril (Prinivil Tab*) 10 mg PO DAILY AMI [place] Carbonate ([place] Carbonate Tab*) 300 mg PO BID AMI Mometasone Furoate (Asmanex 220 Mcg Mdi *) 2 puff INH BID AMI Multivitamins/Minerals (Theragran/Minerals Tab*) 1 tab PO DAILY AMI Ondansetron HCl (Zofran Inj*) 4 mg IV Q6H PRN NAUSEA Pantoprazole Sodium (Protonix Tab (Nf)) 40 mg PO BID AMI Umeclidinium [place] (Incruse Ellipta Mdi (Nf)) 1 inh INH DAILY AMI Vital Signs - 8 hr 03/12/18 03/12/18 08:00 08:57 Pulse Rate 71 71 Respiratory 18 18 Rate O2 Sat by Pulse 94 94 Oximetry Oxygen Devices in Use Now: Nasal Cannula - 2L Appearance: Elderly female sitting in chair in NAD Eyes: No Scleral Icterus Ears/Nose/Mouth/Throat: Mucous Membranes Moist Neck: NL Appearance and Movements; NL JVP, Trachea Midline Respiratory: Symmetrical Chest Expansion and Respiratory Effort, Clear to Auscultation - Diminished Cardiovascular: NL Sounds; No Murmurs; No JVD, RRR Abdominal: NL Sounds; No Tenderness; No Distention Extremities: No Edema Skin: No Rash or Ulcers Neurological: - - Alert, oriented to self and place; Speech is clear Lines/Tubes/Other Access: Clean, Dry and Intact Gil, Clean, Dry and Intact Peripheral IV Nutrition: Taking PO's Result Diagrams: 03/12/18 06:47 03/12/18 06:47 Assess/Plan/Problems-Billing Assessment: Ms. Cavanaugh is a 72 yo F with PMH of developmental delay, COPD, HTN, bipolar, and hypothyroidism; who presented to the ED with because of AMS and lethargy and was found to have sepsis secondary to community-acquired pneumonia. - Patient Problems (1) Community acquired pneumonia Code(s): J18.9 - PNEUMONIA, UNSPECIFIED ORGANISM Comment: - CxR reportedly shows multifocal consolidation - Negative strep and legionella urine antigens - Slow recovery, still requiring 2L NC - Continue ceftriaxone, azithromycin, Mucinex (2) High degree atrioventricular block Code(s): I44.39 - OTHER ATRIOVENTRICULAR BLOCK Comment: - On 03/10 tele showed 10 seconds of ventricular standstill with normal P waves, then a 2:1 conduction and a few short pauses for approx 20 more seconds, then spontaneous conversion to NSR in the 70s; accompanied by 1 episode of emesis - Had 2 short episodes of SVT on 03/12; self converted to NSR - No further abnormalities on tele - Appreciate Cardiology consult; possible pacer placement, though this may just be r/t current illness - Stopped labetalol (3) Septic encephalopathy Code(s): G93.41 - METABOLIC ENCEPHALOPATHY Comment: - Secondary to community acquired pneumonia - Continues to improve daily; awake and alert, almost at baseline - Facial droop resolved - MRI/MRA unremarkable for any acute findings (4) Acute urinary retention Code(s): R33.8 - OTHER RETENTION OF URINE Comment: - Multifactorial - On 03/10 PVR was >900; Gil placed and drained 1200mL - Failed trial void on 03/11 - Will likely need to be d/c'd with Gil and f/u with urology (5) Hypokalemia Code(s): E87.6 - HYPOKALEMIA Comment: - Was 2.6 on admission, now resolved (6) Hypernatremia Code(s): E87.0 - HYPEROSMOLALITY AND HYPERNATREMIA Comment: - Secondary to dehydration, now resolved - Stop IVF (7) Sepsis Comment: - Secondary to community acquired pneumonia - Met sepsis 2 criteria on admission with tachypnea, leukocytosis, confirmed source of infection, and end organ dysfunction; met qSOFA criteria with tachypnea and AMS - Recieved appropriate IVF - Plan as above (8) Hypertension Code(s): I10 - ESSENTIAL (PRIMARY) HYPERTENSION Comment: - Normotensive, SBP 100-120s - Hold chlorthalidone, felodipine - Stopped labetalol d/t AV block - Continue lisinopril (9) Bipolar depression Code(s): F31.30 - BIPOLAR DISORD, CRNT EPSD DEPRESS, MILD OR MOD SEVERT, UNSP Comment: - Continue lithium (10) Hypothyroidism Code(s): E03.9 - HYPOTHYROIDISM, UNSPECIFIED Comment: - Continue levothyroxine (11) Developmental delay, moderate Code(s): R62.50 - UNSP LACK OF EXPECTED NORMAL PHYSIOL DEV IN CHILDHOOD Comment: - Supportive care (12) DVT prophylaxis Comment: - Heparin SQ (13) Full code status Code(s): Z78.9 - OTHER SPECIFIED HEALTH STATUS Comment: Status and Disposition: Inpatient for acute infection requiring IV antibiotics. Possible need for pacemaker placement. Anticipate d/c back to long term when medically stable. Attending: Isidro Lee
[2018-03-12] MEDS: cefTRIAXone(*) 1 GM in NS 0.9% 50 ML* 50 ML IVPB SCH (15:48)
[2018-03-12] MEDS: Atorvastatin* 40 MG TAB PO SCH (22:24)
[2018-03-13] MEDS: Levothyroxine TAB* 150 MCG TAB PO SCH (06:22)
[2018-03-13] MEDS: Heparin VIAL(*) 5000 UNITS/ML VIAL (FIVE THOUSAND) SUBCUT SCH ×3 (06:25→20:59)
[2018-03-13 07:35] LABS: ABS Basophils 0.1 10^3/ul (0-0.2); ABS Eosinophils 0.6 10^3/ul (0-0.6); ABS Lymphocytes 1.3 10^3/ul (1.0-4.8); ABS Monocytes 0.6 10^3/ul (0-0.8); ABS Neutrophils 8.2 10^3/ul (1.5-7.7); ABS Nucleated RBC 0 10^3/ul; Eosinophil % 5.9 %; Hematocrit 38 % (35-47); Hemoglobin 12.6 g/dl (12.0-16.0); Lymphocyte % 11.8 %; Mean Corpuscular HGB Conc 33 g/dl (31-36); Mean Corpuscular Hemoglobin 31 pg (27-31); Mean Corpuscular Volume 93 fL (80-97); Mean Platelet Volume 7.8 fL (7.4-10.4); Nucleated Red Blood Cells % 0; Platelet Count 371 10^3/ul (150-450); Red Blood Count 4.08 10^6/ul (4.00-5.40); Red Cell Distribution Width 16 % (10.5-15); White Blood Count 10.8 10^3/ul (3.5-10.8)
[2018-03-13 07:51] LABS: Calcium 9.9 mg/dL (8.6-10.3); EGFR African American 73.1 (>60); EGFR Non-African American 60.4 (>60); Potassium 3.8 mmol/L (3.5-5.0)
[2018-03-13] MEDS: Mometasone 220 MCG MDI INH SCH ×2 (08:05→20:03)
[2018-03-13] MEDS: Lithium Carbonate TAB* 300 MG PO SCH ×2 (08:27→20:59)
[2018-03-13] MEDS: guaiFENesin ER TAB 600 MG PO SCH ×2 (08:27→20:59)
[2018-03-13] MEDS: Lisinopril TAB* 10 MG PO SCH (08:27)
[2018-03-13] MEDS: Multivitamins/Minerals TAB PO SCH (08:27)
[2018-03-13] MEDS: PTO: Umeclidinium 62.5 MDI(NF) MDI INH SCH (08:28)
[2018-03-13] MEDS: Pantoprazole TAB * 40 MG TAB PO SCH ×2 (08:28→20:58)
--- NOTE | 2018-03-13 08:45 | PN ---
Subjective Date of Service: 03/13/18 Interval History: Ms. Cavanaugh is feeling better today. She offers no complaints. She denies CP, SOB, N/V. Appetite improving. Her warehouse checker reports that she has been cleared by the state to have an event monitor placed. Nursing reports that she has a skin tear to her right upper arm which has a small amount of drainage, covered with mepilex. Family History: Unchanged from Admission Social History: Unchanged from Admission Past Medical History: Unchanged from Admission Objective Active Medications: Acetaminophen (Tylenol Tab*) 650 mg PO Q6H PRN FEVER/PAIN Albuterol/Ipratropium (Duoneb (Albuterol 2.5 Mg/Ipratropium 0.5 Mg)) 1 neb INH Q6H PRN SOB/WHEEZING Atorvastatin Calcium (Lipitor*) 80 mg PO BEDTIME AMI Benzonatate (Tessalon Cap*) 100 mg PO BID PRN COUGH Guaifenesin (Mucinex*) 1,200 mg PO BID AMI Heparin Sodium (Porcine) (Heparin Vial(*)) 5,000 units SUBCUT Q8HR AMI Ceftriaxone Sodium 1 gm/ (Sodium Chloride) 50 mls @ 200 mls/hr IVPB Q24H AMI Azithromycin 250 mg/ Sodium (Chloride) 250 mls @ 250 mls/hr IVPB Q24H AMI Levothyroxine Sodium (Synthroid Tab*) 150 mcg PO QAM@0600 AMI Lisinopril (Prinivil Tab*) 10 mg PO DAILY AMI [place] Carbonate ([place] Carbonate Tab*) 300 mg PO BID AMI Mometasone Furoate (Asmanex 220 Mcg Mdi *) 2 puff INH BID AMI Multivitamins/Minerals (Theragran/Minerals Tab*) 1 tab PO DAILY AMI Ondansetron HCl (Zofran Inj*) 4 mg IV Q6H PRN NAUSEA Pantoprazole Sodium (Protonix Tab (Nf)) 40 mg PO BID AMI Umeclidinium [place] (Incruse Ellipta Mdi (Nf)) 1 inh INH DAILY AMI Vital Signs - 8 hr 03/13/18 03/13/18 04:20 06:28 Temperature 98.1 F 98.1 F Pulse Rate 71 64 Respiratory 20 20 Rate Blood Pressure 121/57 96/66 (mmHg) O2 Sat by Pulse 97 91 Oximetry Oxygen Devices in Use Now: Nasal Cannula - 1L Appearance: Elderly female laying in bed in NAD Eyes: No Scleral Icterus Ears/Nose/Mouth/Throat: Mucous Membranes Moist Neck: NL Appearance and Movements; NL JVP, Trachea Midline Respiratory: Symmetrical Chest Expansion and Respiratory Effort, Clear to Auscultation Cardiovascular: NL Sounds; No Murmurs; No JVD, RRR Abdominal: NL Sounds; No Tenderness; No Distention Extremities: No Edema Skin: No Rash or Ulcers, - - Skin tear to RUE Neurological: - - Oriented to self and place Lines/Tubes/Other Access: Clean, Dry and Intact Peripheral IV Nutrition: Taking PO's Result Diagrams: 03/13/18 07:09 03/13/18 07:09 Assess/Plan/Problems-Billing Assessment: Ms. Cavanaugh is a 72 yo F with PMH of developmental delay, COPD, HTN, bipolar, and hypothyroidism; who presented to the ED with because of AMS and lethargy and was found to have sepsis secondary to community-acquired pneumonia. - Patient Problems (1) Community acquired pneumonia Code(s): J18.9 - PNEUMONIA, UNSPECIFIED ORGANISM Comment: - CxR reportedly shows multifocal consolidation - Negative strep and legionella urine antigens - Slow recovery, still requiring 1L NC; attempt to wean off oxygen today - Continue ceftriaxone, azithromycin, Mucinex (2) High degree atrioventricular block Code(s): I44.39 - OTHER ATRIOVENTRICULAR BLOCK Comment: - On 03/10 tele showed 10 seconds of ventricular standstill with normal P waves, then a 2:1 conduction and a few short pauses for approx 20 more seconds, then spontaneous conversion to NSR in the 70s; accompanied by 1 episode of emesis - Had 2 short episodes of SVT on 03/12; self converted to NSR - No further abnormalities on tele - Appreciate Cardiology consult; likely plan for event monitor - Stopped labetalol; this should not be resumed at d/c - NPO now d/t likely event monitor placement later today after consent is obtained from HCP (3) Septic encephalopathy Code(s): G93.41 - METABOLIC ENCEPHALOPATHY Comment: - Secondary to community acquired pneumonia - Continues to improve daily; awake and alert, almost at baseline mentally, but still very weak - Facial droop resolved - MRI/MRA unremarkable for any acute findings - PT/OT (4) Acute urinary retention Code(s): R33.8 - OTHER RETENTION OF URINE Comment: - Multifactorial - On 03/10 PVR was >900; Gil placed and drained 1200mL - Failed trial void on 03/11 - Will likely need to be d/c'd with Igl and f/u with urology (5) Hypokalemia Code(s): E87.6 - HYPOKALEMIA Comment: - Down to 2.6 on admission, now resolved (6) Hypernatremia Code(s): E87.0 - HYPEROSMOLALITY AND HYPERNATREMIA Comment: - Secondary to dehydration, now resolved - Stop IVF (7) Sepsis Comment: - Resolved - Secondary to community acquired pneumonia - Met sepsis 2 criteria on admission with tachypnea, leukocytosis, confirmed source of infection, and end organ dysfunction; met qSOFA criteria with tachypnea and AMS - Recieved appropriate IVF - Plan as above (8) Hypertension Code(s): I10 - ESSENTIAL (PRIMARY) HYPERTENSION Comment: - Normotensive, SBP 90-120s - Hold chlorthalidone, felodipine; likely will not need to resume these at d/c - Stopped labetalol d/t AV block - Continue lisinopril (9) Bipolar depression Code(s): F31.30 - BIPOLAR DISORD, CRNT EPSD DEPRESS, MILD OR MOD SEVERT, UNSP Comment: - Continue lithium (10) Hypothyroidism Code(s): E03.9 - HYPOTHYROIDISM, UNSPECIFIED Comment: - Continue levothyroxine (11) Developmental delay, moderate Code(s): R62.50 - UNSP LACK OF EXPECTED NORMAL PHYSIOL DEV IN CHILDHOOD Comment: - Supportive care (12) DVT prophylaxis Comment: - Heparin SQ (13) Full code status Code(s): Z78.9 - OTHER SPECIFIED HEALTH STATUS Comment: Status and Disposition: Inpatient for acute infection requiring IV antibiotics. Plan for event monitor placement today. Anticipate d/c back to shelter when medically stable. Attending: Isidro Lee
[2018-03-13] MEDS ORDERED: Lidocaine 1% INJ* 10 MG/ML 30 ML SDV ONE (10:58)
--- NOTE | 2018-03-13 12:05 | CARD ---
CC: Dr. Antoine * EVENT MONITOR IMPLANTATION: DATE OF SERVICE: 03/13/18 - ROOM #450 PROCEDURE: Event monitor implantation. INDICATION: Asystole. The patient is a 72-year-old female who was admitted to the hospital with severe sepsis. She was on the monitor. She had a 7-second episode of ventricular standstill. She had P-waves that were not conducted. The patient had no symptoms associated with this. The patient has had no other arrhythmias since being in the hospital. Event monitor was recommended. DESCRIPTION OF PROCEDURE: The patient was brought to the procedure room where the anterior chest was prepped and draped in the usual fashion. Lidocaine 1% was used for local anesthesia. The event monitor was injected subcutaneously. The event monitor is a [employer] LINQ, serial #[id number] that had an R-wave sensitivity of 0.3. The patient tolerated the procedure well with no complications. [id number]/CPS #: [id number] MTDD
[2018-03-13] MEDS: Azithromycin IV(*) 250 MG in NS 0.9% 250 ML* 250 ML IVPB SCH (12:43)
[2018-03-13] MEDS: cefTRIAXone(*) 1 GM in NS 0.9% 50 ML* 50 ML IVPB SCH (14:29)
[2018-03-13] MEDS: Atorvastatin* 40 MG TAB PO SCH (20:58)
[2018-03-14] MEDS: Levothyroxine TAB* 150 MCG TAB PO SCH (05:36)
[2018-03-14] MEDS: Heparin VIAL(*) 5000 UNITS/ML VIAL (FIVE THOUSAND) SUBCUT SCH ×3 (05:37→20:49)
[2018-03-14 07:11] LABS: Calcium 9.8 mg/dL (8.6-10.3); Potassium 4.4 mmol/L (3.5-5.0)
[2018-03-14 07:17] LABS: BUN/Creatinine Ratio 26.5 (8-20); EGFR African American 81.3 (>60); EGFR Non-African American 67.2 (>60)
[2018-03-14] MEDS: Mometasone 220 MCG MDI INH SCH ×2 (08:05→21:49)
[2018-03-14] MEDS: guaiFENesin ER TAB 600 MG PO SCH ×2 (08:58→19:45)
[2018-03-14] MEDS: Multivitamins/Minerals TAB PO SCH (08:58)
[2018-03-14] MEDS: Lisinopril TAB* 10 MG PO SCH (08:58)
[2018-03-14] MEDS: Lithium Carbonate TAB* 300 MG PO SCH ×2 (08:59→19:45)
[2018-03-14] MEDS: Pantoprazole TAB * 40 MG TAB PO SCH ×2 (08:59→19:45)
[2018-03-14] MEDS: PTO: Umeclidinium 62.5 MDI(NF) MDI INH SCH (09:03)
[2018-03-14] MEDS: Azithromycin IV(*) 250 MG in NS 0.9% 250 ML* 250 ML IVPB SCH (13:04)
[2018-03-14] MEDS: cefTRIAXone(*) 1 GM in NS 0.9% 50 ML* 50 ML IVPB SCH (14:07)
--- NOTE | 2018-03-14 14:47 | PN ---
Subjective Date of Service: 03/14/18 Interval History: Ms. Cavanaugh is in good spirits today. She was requesting coffee this morning and wanted to get up and walk, but had no other complaints. She denies CP, SOB, N/ V. Appetite is good. Family History: Unchanged from Admission Social History: Unchanged from Admission Past Medical History: Unchanged from Admission Objective Active Medications: Acetaminophen (Tylenol Tab*) 650 mg PO Q6H PRN FEVER/PAIN Albuterol/Ipratropium (Duoneb (Albuterol 2.5 Mg/Ipratropium 0.5 Mg)) 1 neb INH Q6H PRN SOB/WHEEZING Atorvastatin Calcium (Lipitor*) 80 mg PO BEDTIME AMI Benzonatate (Tessalon Cap*) 100 mg PO BID PRN COUGH Guaifenesin (Mucinex*) 1,200 mg PO BID AMI Heparin Sodium (Porcine) (Heparin Vial(*)) 5,000 units SUBCUT Q8HR AMI Ceftriaxone Sodium 1 gm/ (Sodium Chloride) 50 mls @ 200 mls/hr IVPB Q24H AMI Azithromycin 250 mg/ Sodium (Chloride) 250 mls @ 250 mls/hr IVPB Q24H AMI Levothyroxine Sodium (Synthroid Tab*) 150 mcg PO QAM@0600 AMI Lisinopril (Prinivil Tab*) 10 mg PO DAILY AMI [place] Carbonate ([place] Carbonate Tab*) 300 mg PO BID AMI Mometasone Furoate (Asmanex 220 Mcg Mdi *) 2 puff INH BID AMI Multivitamins/Minerals (Theragran/Minerals Tab*) 1 tab PO DAILY AMI Ondansetron HCl (Zofran Inj*) 4 mg IV Q6H PRN NAUSEA Pantoprazole Sodium (Protonix Tab (Nf)) 40 mg PO BID AMI Tiotropium [place] (Spiriva Cap.Inh*) 1 cap INH DAILY AMI Vital Signs - 8 hr 03/14/18 03/14/18 07:43 08:00 Temperature 97.7 F Pulse Rate 68 Respiratory 18 18 Rate Blood Pressure 108/60 (mmHg) O2 Sat by Pulse 93 Oximetry Oxygen Devices in Use Now: None Appearance: Elderly female laying in bed in NAD Eyes: No Scleral Icterus Ears/Nose/Mouth/Throat: Mucous Membranes Moist Neck: NL Appearance and Movements; NL JVP, Trachea Midline Respiratory: Symmetrical Chest Expansion and Respiratory Effort, Clear to Auscultation Cardiovascular: NL Sounds; No Murmurs; No JVD, RRR Abdominal: NL Sounds; No Tenderness; No Distention Extremities: No Edema Skin: - - Skin tear to RUE Neurological: Alert and Oriented x 3 Lines/Tubes/Other Access: Clean, Dry and Intact Peripheral IV Nutrition: Taking PO's Result Diagrams: 03/13/18 07:09 03/14/18 06:31 Assess/Plan/Problems-Billing Assessment: Ms. Cavanaugh is a 72 yo F with PMH of developmental delay, COPD, HTN, bipolar, and hypothyroidism; who presented to the ED with because of AMS and lethargy and was found to have sepsis secondary to community-acquired pneumonia. - Patient Problems (1) Community acquired pneumonia Code(s): J18.9 - PNEUMONIA, UNSPECIFIED ORGANISM Comment: - Symptoms resolved - CxR reportedly shows multifocal consolidation - Negative strep and legionella urine antigens - Continue ceftriaxone and azithromycin (day 7), Mucinex (2) High degree atrioventricular block Code(s): I44.39 - OTHER ATRIOVENTRICULAR BLOCK Comment: - On 03/10 tele showed 10 seconds of ventricular standstill with normal P waves, then a 2:1 conduction and a few short pauses for approx 20 more seconds, then spontaneous conversion to NSR in the 70s; accompanied by 1 episode of emesis - Had 2 short episodes of SVT on 03/12; self converted to NSR - No further abnormalities on tele - Appreciate Cardiology consult; likely plan for event monitor - Stopped labetalol; this should not be resumed at d/c - [employer] LINQ event monitor placed 03/13 (3) Septic encephalopathy Code(s): G93.41 - METABOLIC ENCEPHALOPATHY Comment: - Secondary to community acquired pneumonia - Mental status at baseline; facial droop resolved - MRI/MRA unremarkable for any acute findings - PT/OT (4) Acute urinary retention Code(s): R33.8 - OTHER RETENTION OF URINE Comment: - Multifactorial - On 03/10 PVR was >900; Gil placed and drained 1200mL - Failed trial void on 03/11 - Will attempt another trial void today, but suspect that she will continue to retain d/t bladder distension; may need to be d/c'd with Gil and f/u with urology (5) Sepsis Comment: - Resolved - Secondary to community acquired pneumonia - Met sepsis 2 criteria on admission with tachypnea, leukocytosis, confirmed source of infection, and end organ dysfunction; met qSOFA criteria with tachypnea and AMS - Recieved appropriate IVF - Plan as above (6) Hypokalemia Code(s): E87.6 - HYPOKALEMIA Comment: - Down to 2.6 on admission, now resolved (7) Hypernatremia Code(s): E87.0 - HYPEROSMOLALITY AND HYPERNATREMIA Comment: - Secondary to dehydration, now resolved (8) Hypertension Code(s): I10 - ESSENTIAL (PRIMARY) HYPERTENSION Comment: - Normotensive, SBP 90-110s - Hold chlorthalidone, felodipine; likely will not need to resume these at d/c as she is well controlled on one agent - Continue lisinopril (9) Bipolar depression Code(s): F31.30 - BIPOLAR DISORD, CRNT EPSD DEPRESS, MILD OR MOD SEVERT, UNSP Comment: - Continue lithium (10) Hypothyroidism Code(s): E03.9 - HYPOTHYROIDISM, UNSPECIFIED Comment: - Continue levothyroxine (11) Developmental delay, moderate Code(s): R62.50 - UNSP LACK OF EXPECTED NORMAL PHYSIOL DEV IN CHILDHOOD Comment: - Supportive care (12) DVT prophylaxis Comment: - Heparin SQ (13) Full code status Code(s): Z78.9 - OTHER SPECIFIED HEALTH STATUS Comment: Status and Disposition: Inpatient for acute infection requiring IV antibiotics. Anticipate d/c to [facility] as her senior living is not able to take her back with acute PT/OT needs. Pending bed. Attending: Katiana Sanches
[2018-03-14] MEDS: Atorvastatin* 40 MG TAB PO SCH (19:45)
[2018-03-15] MEDS: Heparin VIAL(*) 5000 UNITS/ML VIAL (FIVE THOUSAND) SUBCUT SCH ×3 (06:02→21:29)
[2018-03-15] MEDS: Levothyroxine TAB* 150 MCG TAB PO SCH (06:07)
[2018-03-15] MEDS ORDERED: Spiriva Inhaler DEVICE* 1 EACH DEVICE INH ONE (09:00)
[2018-03-15] MEDS: Tiotropium CAP.INH* CAP.INH/18 MCG (USE ORDER SET !) INH SCH (09:04)
[2018-03-15] MEDS: Mometasone 220 MCG MDI INH SCH ×2 (09:04→22:39)
[2018-03-15] MEDS: Lithium Carbonate TAB* 300 MG PO SCH ×2 (09:08→20:20)
[2018-03-15] MEDS: Lisinopril TAB* 10 MG PO SCH (09:08)
[2018-03-15] MEDS: guaiFENesin ER TAB 600 MG PO SCH ×2 (09:09→20:19)
[2018-03-15] MEDS: Multivitamins/Minerals TAB PO SCH (09:09)
[2018-03-15] MEDS: Pantoprazole TAB * 40 MG TAB PO SCH ×2 (09:09→20:20)
[2018-03-15] MEDS: Azithromycin TAB* 250 MG PO SCH (12:07)
[2018-03-15 12:59] LABS: ABS Basophils 0.1 10^3/ul (0-0.2); ABS Eosinophils 0.6 10^3/ul (0-0.6); ABS Lymphocytes 1.3 10^3/ul (1.0-4.8); ABS Monocytes 0.5 10^3/ul (0-0.8); ABS Neutrophils 9.8 10^3/ul (1.5-7.7); ABS Nucleated RBC 0 10^3/ul; Eosinophil % 4.6 %; Hematocrit 38 % (35-47); Hemoglobin 12.7 g/dl (12.0-16.0); Lymphocyte % 10.7 %; Mean Corpuscular HGB Conc 34 g/dl (31-36); Mean Corpuscular Hemoglobin 31 pg (27-31); Mean Corpuscular Volume 92 fL (80-97); Mean Platelet Volume 7.5 fL (7.4-10.4); Nucleated Red Blood Cells % 0; Platelet Count 495 10^3/ul (150-450); Red Blood Count 4.14 10^6/ul (4.00-5.40); Red Cell Distribution Width 16 % (10.5-15); White Blood Count 12.3 10^3/ul (3.5-10.8)
[2018-03-15 13:27] LABS: BUN/Creatinine Ratio 28.8 (8-20); Calcium 9.5 mg/dL (8.6-10.3); EGFR African American 54.2 (>60); EGFR Non-African American 44.8 (>60); Magnesium 2.3 mg/dL (1.9-2.7); Potassium 4.5 mmol/L (3.5-5.0)
[2018-03-15 13:41] LABS: Lithium 1.12 mmol/L (0.6-1.2)
[2018-03-15] MEDS: cefTRIAXone(*) 1 GM in NS 0.9% 50 ML* 50 ML IVPB SCH (14:35)
[2018-03-15] MEDS ORDERED: NS 0.9% 500 ML* 500 ML IV SCH (16:00)
--- NOTE | 2018-03-15 17:49 | PN ---
Subjective Date of Service: 03/15/18 Interval History: Resting in chair on assessment. Patient smiling and answering questions appropriately. Denies pain, sob, palpitation, nausea, vomiting, diarrhea. Tolerating diet. Per tele rn she has been sinus on monitor. Last known event was SVT on 03/[address] and draining clear yellow urine. Family History: Unchanged from Admission Social History: Unchanged from Admission Past Medical History: Unchanged from Admission Objective Active Medications: Acetaminophen (Tylenol Tab*) 650 mg PO Q6H PRN PRN Reason: FEVER/PAIN Last Admin: 03/13/18 15:15 Dose: 650 mg Albuterol/Ipratropium (Duoneb (Albuterol 2.5 Mg/Ipratropium 0.5 Mg)) 1 neb INH Q6H PRN PRN Reason: SOB/WHEEZING Atorvastatin Calcium (Lipitor*) 80 mg PO BEDTIME [facility] Last Admin: 03/14/18 19:45 Dose: 80 mg Azithromycin (Zithromax Tab*) 250 mg PO 1200 [facility] Last Admin: 03/15/18 12:07 Dose: 250 mg Benzonatate (Tessalon Cap*) 100 mg PO BID PRN PRN Reason: COUGH Guaifenesin (Mucinex*) 1,200 mg PO BID [facility] Last Admin: 03/15/18 09:09 Dose: 1,200 mg Heparin Sodium (Porcine) (Heparin Vial(*)) 5,000 units SUBCUT Q8HR [facility] Last Admin: 03/15/18 14:35 Dose: 5,000 units Ceftriaxone Sodium 1 gm/ (Sodium Chloride) 50 mls @ 200 mls/hr IVPB Q24H [facility] Last Admin: 03/15/18 14:35 Dose: 200 mls/hr Sodium Chloride (Ns 0.9% 500 Ml*) 500 mls @ 75 mls/hr IV PER RATE [facility] Last Admin: 03/15/18 16:40 Dose: 75 mls/hr Levothyroxine Sodium (Synthroid Tab*) 150 mcg PO QAM@0600 [facility] Last Admin: 03/15/18 06:07 Dose: 150 mcg Lisinopril (Prinivil Tab*) 10 mg PO DAILY [facility] Last Admin: 03/15/18 09:08 Dose: 10 mg [place] Carbonate ([place] Carbonate Tab*) 300 mg PO BID [facility] Last Admin: 03/15/18 09:08 Dose: 300 mg Mometasone Furoate (Asmanex 220 Mcg Mdi *) 2 puff INH BID [facility] Last Admin: 03/15/18 09:04 Dose: 2 puff Multivitamins/Minerals (Theragran/Minerals Tab*) 1 tab PO DAILY [facility] Last Admin: 03/15/18 09:09 Dose: 1 tab Ondansetron HCl (Zofran Inj*) 4 mg IV Q6H PRN PRN Reason: NAUSEA Last Admin: 03/13/18 15:16 Dose: 4 mg Pantoprazole Sodium (Protonix Tab (Nf)) 40 mg PO BID [facility] Last Admin: 03/15/18 09:09 Dose: 40 mg Tiotropium [place] (Spiriva Cap.Inh*) 1 cap INH DAILY [facility] Last Admin: 03/15/18 09:04 Dose: 1 cap Vital Signs - 8 hr 03/15/18 03/15/18 11:40 15:09 Temperature 98.0 F 97.7 F Pulse Rate 73 66 Respiratory 17 24 Rate Blood Pressure 73/53 92/49 (mmHg) O2 Sat by Pulse 56 93 Oximetry Oxygen Devices in Use Now: None Appearance: Comfortable, NAD Eyes: PERRLA Ears/Nose/Mouth/Throat: Clear Oropharnyx, Mucous Membranes Moist Neck: NL Appearance and Movements; NL JVP Respiratory: Symmetrical Chest Expansion and Respiratory Effort, Clear to Auscultation Cardiovascular: NL Sounds; No Murmurs; No JVD, RRR, No Edema Abdominal: NL Sounds; No Tenderness; No Distention Lymphatic: No Cervical Adenopathy Extremities: No Edema Skin: No Rash or Ulcers Neurological: Alert and Oriented x 3 Nutrition: Taking PO's Result Diagrams: 03/15/18 12:44 03/15/18 12:44 Additional Lab and Data: Laboratory Results - last 24 hr 03/15/18 03/15/18 12:44 12:44 WBC 12.3 H RBC 4.14 Hgb 12.7 Hct 38 MCV 92 MCH 31 MCHC 34 RDW 16 H Plt Count 495 H D MPV 7.5 Neut % (Auto) 79.5 Lymph % (Auto) 10.7 [place] % (Auto) 4.4 Eos % (Auto) 4.6 Baso % (Auto) 0.8 Absolute Neuts (auto) 9.8 H Absolute Lymphs (auto) 1.3 Absolute Monos (auto) 0.5 Absolute Eos (auto) 0.6 Absolute Basos (auto) 0.1 Absolute Nucleated RBC 0 Nucleated RBC % 0 Sodium 135 D Potassium 4.5 Chloride 106 Carbon Dioxide 23 Anion Gap 6 BUN 34 H Creatinine 1.18 H Est GFR ( Amer) 54.2 Est GFR (Non-Af Amer) 44.8 BUN/Creatinine Ratio 28.8 H Glucose 121 H Calcium 9.5 Magnesium 2.3 [place] 1.12 Microbiology and Other Data: Microbiology 03/08/18 11:25 Aerobic Blood Culture - Final Blood Venous No Growth Day 5 Anaerobic Blood Culture - Final No Growth Day 5 03/08/18 10:10 Aerobic Blood Culture - Final Blood Venous No Growth Day 5 Anaerobic Blood Culture - Final No Growth Day 5 03/09/18 20:00 Influenza Types A,B Antigen - Final Nasal Specimen received for Influenza A/B Molecular testing 03/08/18 13:05 Urine Culture - Final Urine 03/08/18 13:03 Legionella Urinary Antigen - Final Urine Negative Legionella Antigen Streptococcus pneumoniae Ag Screen - Final Negative S. pneumo Antigen Assess/Plan/Problems-Billing Assessment: Ms. Cavanaugh is a 72 yo F with PMH of developmental delay, COPD, HTN, bipolar, and hypothyroidism; who presented to the ED with because of AMS and lethargy and was found to have sepsis secondary to community-acquired pneumonia. - Patient Problems (1) Community acquired pneumonia Comment: - Symptoms resolved - CxR reportedly shows multifocal consolidation - Negative strep and legionella urine antigens - Continue ceftriaxone and azithromycin (day 09/29), Mucinex - Could be d/c'd on Augmentin (2) Leukocytosis Comment: - WBC elevated to 12.3 (today) from 10.8 (03/13) - Due to multiple richards placements I have ordered a repeat UA - Elevated could also be due to dehydation, therefore, bolus of 500 ml NS ordered - Repeat CBC and CMP tomorrow (3) Creatinine elevation Comment: - Elevated from 0.83 to 1.18 - 500 NS bolus ordered - Repeat labs tomorrow (4) Acute urinary retention Comment: - Multifactorial - On 03/10 PVR was >900; Richards placed and drained 1200mL - Failed trial void on 03/11 - Another trial void completed yesterday, but richards needed to be replaced due to retention. - Will need to be d/c'd with Richards and f/u with urology (5) Bipolar depression Comment: - Continue lithium - Level was rechecked today and notably higher than 03/10 which i suspected is due to possible dehydtaion and noted elevated creatinine (6) Developmental delay, moderate Current Visit: Yes Status: Acute Code(s): R62.50 - UNSP LACK OF EXPECTED NORMAL PHYSIOL DEV IN CHILDHOOD SNOMED Code(s): 661659826 Comment: - Supportive care (7) High degree atrioventricular block Current Visit: Yes Status: Acute Code(s): I44.39 - OTHER ATRIOVENTRICULAR BLOCK SNOMED Code(s): 970674046 Comment: - On 03/10 tele showed 10 seconds of ventricular standstill with normal P waves, then a 2:1 conduction and a few short pauses for approx 20 more seconds, then spontaneous conversion to NSR in the 70s; accompanied by 1 episode of emesis - Had 2 short episodes of SVT on 03/12; self converted to NSR - No further abnormalities on tele - Appreciate Cardiology consult; likely plan for event monitor - Stopped labetalol; this should not be resumed at d/c - [employer] LINQ event monitor placed 03/13 (8) Hypernatremia Current Visit: Yes Status: Acute Code(s): E87.0 - HYPEROSMOLALITY AND HYPERNATREMIA SNOMED Code(s): 25979397 Comment: - Secondary to dehydration, now resolved (9) Hypertension Comment: - Normotensive, SBP 90-110s - Hold chlorthalidone, felodipine; likely will not need to resume these at d/c as she is well controlled on one agent - Continue lisinopril (10) Hypokalemia Comment: - Down to 2.6 on admission, now resolved (11) Hypothyroidism Comment: - Continue levothyroxine (12) Sepsis Comment: - Resolved - Secondary to community acquired pneumonia - Met sepsis 2 criteria on admission with tachypnea, leukocytosis, confirmed source of infection, and end organ dysfunction; met qSOFA criteria with tachypnea and AMS - Recieved appropriate IVF - Plan as above (13) Septic encephalopathy Code(s): G93.41 - METABOLIC ENCEPHALOPATHY Comment: - Secondary to community acquired pneumonia - Mental status at baseline; facial droop resolved - MRI/MRA unremarkable for any acute findings - PT/OT (14) DVT prophylaxis Comment: - Heparin SQ (15) Full code status Comment: Status and Disposition: Inpatient for acute infection requiring IV antibiotics. Anticipate d/c to [facility] as her correction is not able to take her back with acute PT/OT needs. When medically stable Attending: Magali Oglesby
[2018-03-15] MEDS: Atorvastatin* 40 MG TAB PO SCH (20:19)
[2018-03-15 21:35] LABS: Urine Appearance Clear; Urine Bacteria Absent (Absent); Urine Bilirubin Negative (Negative); Urine Blood 2+ (Negative); Urine Color Yellow; Urine Glucose Negative (Negative); Urine Ketones Negative (Negative); Urine Nitrite Negative (Negative); Urine Protein Negative (Negative); Urine Red Blood Cell 2+(6-10/hpf) (Absent); Urine Specific Gravity 1.008 (1.010-1.030); Urine Squamous Epithelial Cell Present (Absent); Urine Urobilinogen Negative (Negative); Urine White Blood Cell Trace(0-5/hpf) (Absent)
[2018-03-16] MEDS: Heparin VIAL(*) 5000 UNITS/ML VIAL (FIVE THOUSAND) SUBCUT SCH ×3 (06:23→21:32)
[2018-03-16] MEDS: Levothyroxine TAB* 150 MCG TAB PO SCH (06:23)
[2018-03-16 06:33] LABS: ABS Basophils 0.1 10^3/ul (0-0.2); ABS Eosinophils 0.4 10^3/ul (0-0.6); ABS Lymphocytes 1.1 10^3/ul (1.0-4.8); ABS Monocytes 0.4 10^3/ul (0-0.8); ABS Neutrophils 7.8 10^3/ul (1.5-7.7); ABS Nucleated RBC 0 10^3/ul; Eosinophil % 4.2 %; Hematocrit 38 % (35-47); Hemoglobin 12.5 g/dl (12.0-16.0); Lymphocyte % 11.5 %; Mean Corpuscular HGB Conc 33 g/dl (31-36); Mean Corpuscular Hemoglobin 30 pg (27-31); Mean Corpuscular Volume 92 fL (80-97); Mean Platelet Volume 7.3 fL (7.4-10.4); Nucleated Red Blood Cells % 0; Platelet Count 401 10^3/ul (150-450); Red Cell Distribution Width 16 % (10.5-15); White Blood Count 9.9 10^3/ul (3.5-10.8)
[2018-03-16 06:51] LABS: BUN/Creatinine Ratio 31.5 (8-20); Calcium 9.7 mg/dL (8.6-10.3); EGFR Non-African American 49.6 (>60)
[2018-03-16 07:14] LABS: Lithium 1.02 mmol/L (0.6-1.2)
[2018-03-16] MEDS: Mometasone 220 MCG MDI INH SCH ×2 (08:31→19:39)
[2018-03-16] MEDS: Tiotropium CAP.INH* CAP.INH/18 MCG (USE ORDER SET !) INH SCH (08:31)
[2018-03-16] MEDS: Multivitamins/Minerals TAB PO SCH (09:46)
[2018-03-16] MEDS: Lisinopril TAB* 10 MG PO SCH (09:47)
[2018-03-16] MEDS: guaiFENesin ER TAB 600 MG PO SCH ×2 (09:48→21:32)
[2018-03-16] MEDS: Lithium Carbonate TAB* 300 MG PO SCH ×2 (09:48→21:32)
[2018-03-16] MEDS: Pantoprazole TAB * 40 MG TAB PO SCH ×2 (09:49→21:31)
[2018-03-16] MEDS: Azithromycin TAB* 250 MG PO SCH (11:55)
[2018-03-16] MEDS: cefTRIAXone(*) 1 GM in NS 0.9% 50 ML* 50 ML IVPB SCH (13:43)
--- NOTE | 2018-03-16 17:04 | PN ---
Subjective Date of Service: 03/16/18 Interval History: Sitting in chair on assessment. Patient denies pain, fever, chills, palpitations, nausea, vomiting, diarrhea. Reports she feels "good". Family History: Unchanged from Admission Social History: Unchanged from Admission Past Medical History: Unchanged from Admission Objective Active Medications: Acetaminophen (Tylenol Tab*) 650 mg PO Q6H PRN PRN Reason: FEVER/PAIN Last Admin: 03/13/18 15:15 Dose: 650 mg Albuterol/Ipratropium (Duoneb (Albuterol 2.5 Mg/Ipratropium 0.5 Mg)) 1 neb INH Q6H PRN PRN Reason: SOB/WHEEZING Atorvastatin Calcium (Lipitor*) 80 mg PO BEDTIME COUNTS INCLUDE 234 BEDS AT THE [facility] Last Admin: 03/15/18 20:19 Dose: 80 mg Azithromycin (Zithromax Tab*) 250 mg PO 1200 COUNTS INCLUDE 234 BEDS AT THE [facility] Last Admin: 03/16/18 11:55 Dose: 250 mg Benzonatate (Tessalon Cap*) 100 mg PO BID PRN PRN Reason: COUGH Guaifenesin (Mucinex*) 1,200 mg PO BID COUNTS INCLUDE 234 BEDS AT THE [facility] Last Admin: 03/16/18 09:48 Dose: 1,200 mg Heparin Sodium (Porcine) (Heparin Vial(*)) 5,000 units SUBCUT Q8HR COUNTS INCLUDE 234 BEDS AT THE [facility] Last Admin: 03/16/18 14:03 Dose: 5,000 units Ceftriaxone Sodium 1 gm/ (Sodium Chloride) 50 mls @ 200 mls/hr IVPB Q24H COUNTS INCLUDE 234 BEDS AT THE [facility] Last Admin: 03/16/18 13:43 Dose: 200 mls/hr Levothyroxine Sodium (Synthroid Tab*) 150 mcg PO QAM@0600 COUNTS INCLUDE 234 BEDS AT THE [facility] Last Admin: 03/16/18 06:23 Dose: 150 mcg Lisinopril (Prinivil Tab*) 10 mg PO DAILY COUNTS INCLUDE 234 BEDS AT THE [facility] Last Admin: 03/16/18 09:47 Dose: 10 mg [place] Carbonate ([place] Carbonate Tab*) 300 mg PO BID COUNTS INCLUDE 234 BEDS AT THE [facility] Last Admin: 03/16/18 09:48 Dose: 300 mg Mometasone Furoate (Asmanex 220 Mcg Mdi *) 2 puff INH BID COUNTS INCLUDE 234 BEDS AT THE [facility] Last Admin: 03/16/18 08:31 Dose: 2 puff Multivitamins/Minerals (Theragran/Minerals Tab*) 1 tab PO DAILY COUNTS INCLUDE 234 BEDS AT THE [facility] Last Admin: 03/16/18 09:46 Dose: 1 tab Ondansetron HCl (Zofran Inj*) 4 mg IV Q6H PRN PRN Reason: NAUSEA Last Admin: 03/13/18 15:16 Dose: 4 mg Pantoprazole Sodium (Protonix Tab (Nf)) 40 mg PO BID COUNTS INCLUDE 234 BEDS AT THE [facility] Last Admin: 03/16/18 09:49 Dose: 40 mg Tiotropium [place] (Spiriva Cap.Inh*) 1 cap INH DAILY COUNTS INCLUDE 234 BEDS AT THE [facility] Last Admin: 03/16/18 08:31 Dose: 1 cap Vital Signs - 8 hr 03/16/18 03/16/18 14:37 15:34 Temperature 98.5 F 98.1 F Pulse Rate 79 72 Respiratory 16 20 Rate Blood Pressure 86/64 106/61 (mmHg) O2 Sat by Pulse 95 94 Oximetry Oxygen Devices in Use Now: None Appearance: Comfortable, NAD Eyes: No Scleral Icterus Ears/Nose/Mouth/Throat: Clear Oropharnyx, Mucous Membranes Moist Neck: NL Appearance and Movements; NL JVP Respiratory: Symmetrical Chest Expansion and Respiratory Effort, Clear to Auscultation Cardiovascular: NL Sounds; No Murmurs; No JVD, RRR, No Edema Abdominal: NL Sounds; No Tenderness; No Distention Lymphatic: No Cervical Adenopathy Extremities: No Edema, No Clubbing, Cyanosis Skin: No Rash or Ulcers - Alert to self and place. Nutrition: Taking PO's Result Diagrams: 03/16/18 06:25 03/16/18 06:25 Additional Lab and Data: Laboratory Results - last 24 hr 03/15/18 03/16/18 03/16/18 17:41 06:25 06:25 WBC 9.9 RBC 4.10 Hgb 12.5 Hct 38 MCV 92 MCH 30 MCHC 33 RDW 16 H Plt Count 401 MPV 7.3 L Neut % (Auto) 79.2 Lymph % (Auto) 11.5 [place] % (Auto) 4.3 Eos % (Auto) 4.2 Baso % (Auto) 0.8 Absolute Neuts (auto) 7.8 H Absolute Lymphs (auto) 1.1 Absolute Monos (auto) 0.4 Absolute Eos (auto) 0.4 Absolute Basos (auto) 0.1 Absolute Nucleated RBC 0 Nucleated RBC % 0 Sodium 144 D Potassium 4.0 Chloride 114 H Carbon Dioxide 24 Anion Gap 6 BUN 34 H Creatinine 1.08 H Est GFR ( Amer) 60.0 Est GFR (Non-Af Amer) 49.6 BUN/Creatinine Ratio 31.5 H Glucose 102 H Calcium 9.7 Urine Color Yellow Urine Appearance Clear Urine pH 6.0 Ur Specific [place] 1.008 L Urine Protein Negative Urine Ketones Negative Urine Blood 2+ A Urine Nitrate Negative Urine Bilirubin Negative Urine Urobilinogen Negative Ur Leukocyte Esterase Trace A Urine WBC (Auto) Trace(0-5/hpf) Urine RBC (Auto) 2+(6-10/hpf) A Ur Squamous Epith Cells Present A Urine Bacteria Absent Urine Glucose Negative [place] 1.02 Microbiology and Other Data: Microbiology 03/08/18 11:25 Aerobic Blood Culture - Final Blood Venous No Growth Day 5 Anaerobic Blood Culture - Final No Growth Day 5 03/08/18 10:10 Aerobic Blood Culture - Final Blood Venous No Growth Day 5 Anaerobic Blood Culture - Final No Growth Day 5 03/09/18 20:00 Influenza Types A,B Antigen - Final Nasal Specimen received for Influenza A/B Molecular testing 03/08/18 13:05 Urine Culture - Final Urine 03/08/18 13:03 Legionella Urinary Antigen - Final Urine Negative Legionella Antigen Streptococcus pneumoniae Ag Screen - Final Negative S. pneumo Antigen Assess/Plan/Problems-Billing Assessment: Ms. Cavanaugh is a 72 yo F with PMH of developmental delay, COPD, HTN, bipolar, and hypothyroidism; who presented to the ED with because of AMS and lethargy and was found to have sepsis secondary to community-acquired pneumonia. - Patient Problems (1) Community acquired pneumonia Comment: - Symptoms resolved - CxR reportedly shows multifocal consolidation - Negative strep and legionella urine antigens - Continue ceftriaxone and azithromycin (day 10/30), Mucinex - Could be d/c'd on Augmentin (2) Leukocytosis Comment: - WBC elevated yesterday at 12.3 and now 9.9 - Repeat UA unremarkable (3) Creatinine elevation Comment: - Elevated from 0.83 to 1.18 yesterday. 500 ml NS bolus given and today 1.08 which is still above baseline - Additional 500 NS bolus ordered - Repeat labs tomorrow (4) Acute urinary retention Comment: - Multifactorial - On 03/10 PVR was >900; Richards placed and drained 1200mL - Failed trial void on 03/11 - Another trial void completed yesterday, but richards needed to be replaced due to retention. - Will need to be d/c'd with Richards and f/u with urology (5) Bipolar depression Comment: - Continue lithium - Will need recheck of level after discharge (6) Developmental delay, moderate Comment: - Supportive care (7) High degree atrioventricular block Comment: - On 03/10 tele showed 10 seconds of ventricular standstill with normal P waves, then a 2:1 conduction and a few short pauses for approx 20 more seconds, then spontaneous conversion to NSR in the 70s; accompanied by 1 episode of emesis - Had 2 short episodes of SVT on 03/12; self converted to NSR - No further abnormalities on tele - Appreciate Cardiology consult - Stopped labetalol; this should not be resumed at d/c - [employer] LINQ event monitor placed 03/13 (8) Hypernatremia Current Visit: Yes Status: Acute Code(s): E87.0 - HYPEROSMOLALITY AND HYPERNATREMIA SNOMED Code(s): 23392755 Comment: - Secondary to dehydration, now resolved (9) Hypertension Comment: - Normotensive, SBP 90-110s - Hold chlorthalidone, felodipine; likely will not need to resume these at d/c as she is well controlled on one agent - Continue lisinopril (10) Hypokalemia Comment: - Down to 2.6 on admission, now resolved (11) Hypothyroidism Comment: - Continue levothyroxine (12) Sepsis Comment: - Resolved - Secondary to community acquired pneumonia - Met sepsis 2 criteria on admission with tachypnea, leukocytosis, confirmed source of infection, and end organ dysfunction; met qSOFA criteria with tachypnea and AMS - Recieved appropriate IVF - Plan as above (13) Septic encephalopathy Code(s): G93.41 - METABOLIC ENCEPHALOPATHY Comment: - Secondary to community acquired pneumonia - Mental status at baseline; facial droop resolved - MRI/MRA unremarkable for any acute findings - PT/OT (14) DVT prophylaxis Comment: - Heparin SQ (15) Full code status Comment: Status and Disposition: Inpatient for acute infection requiring IV antibiotics. Anticipate d/c to [facility] as her retirement is not able to take her back with acute PT/OT needs. When medically stable Attending: Magali Oglesby
[2018-03-16] MEDS ORDERED: NS 0.9% 500 ML* 500 ML IV ONE (17:07)
[2018-03-16] MEDS: Atorvastatin* 40 MG TAB PO SCH (21:31)
[2018-03-17] MEDS ORDERED: Furosemide IV* 10 MG/ML 2 ML VIAL (20 MG) IV ONE (02:16)
[2018-03-17] MEDS: Levothyroxine TAB* 150 MCG TAB PO SCH (05:26)
[2018-03-17] MEDS: Heparin VIAL(*) 5000 UNITS/ML VIAL (FIVE THOUSAND) SUBCUT SCH ×3 (05:26→21:50)
[2018-03-17 06:36] LABS: BUN/Creatinine Ratio 30.1 (8-20); Calcium 9.9 mg/dL (8.6-10.3); EGFR African American 71.3 (>60); EGFR Non-African American 58.9 (>60)
[2018-03-17] MEDS: Tiotropium CAP.INH* CAP.INH/18 MCG (USE ORDER SET !) INH SCH (07:51)
[2018-03-17] MEDS: Mometasone 220 MCG MDI INH SCH ×2 (07:53→19:30)
[2018-03-17] MEDS: Lithium Carbonate TAB* 300 MG PO SCH ×2 (08:50→21:50)
[2018-03-17] MEDS: Pantoprazole TAB * 40 MG TAB PO SCH ×2 (08:50→21:49)
[2018-03-17] MEDS: Multivitamins/Minerals TAB PO SCH (08:50)
[2018-03-17] MEDS: guaiFENesin ER TAB 600 MG PO SCH ×2 (08:51→21:50)
[2018-03-17] MEDS: Lisinopril TAB* 10 MG PO SCH (08:51)
[2018-03-17] MEDS: cefTRIAXone(*) 1 GM in NS 0.9% 50 ML* 50 ML IVPB SCH (13:23)
--- NOTE | 2018-03-17 15:40 | PN ---
Subjective Date of Service: 03/17/18 Interval History: Patient in good spirits today. Patient denies CP, SOB, dizziness, presyncope, palpitations, F/C, N/V, diarrhea, abdominal pain. Patient had an episode of High Grade AV block while coughing after aspirating food. Patient had no presyncopal feelings with this. Family History: Unchanged from Admission Social History: Unchanged from Admission Past Medical History: Unchanged from Admission Objective Active Medications: Acetaminophen (Tylenol Tab*) 650 mg PO Q6H PRN PRN Reason: FEVER/PAIN Last Admin: 03/13/18 15:15 Dose: 650 mg Albuterol/Ipratropium (Duoneb (Albuterol 2.5 Mg/Ipratropium 0.5 Mg)) 1 neb INH Q6H PRN PRN Reason: SOB/WHEEZING Atorvastatin Calcium (Lipitor*) 80 mg PO BEDTIME [facility] Last Admin: 03/16/18 21:31 Dose: 80 mg Benzonatate (Tessalon Cap*) 100 mg PO BID PRN PRN Reason: COUGH Guaifenesin (Mucinex*) 1,200 mg PO BID [facility] Last Admin: 03/17/18 08:51 Dose: 1,200 mg Heparin Sodium (Porcine) (Heparin Vial(*)) 5,000 units SUBCUT Q8HR [facility] Last Admin: 03/17/18 13:23 Dose: 5,000 units Levothyroxine Sodium (Synthroid Tab*) 150 mcg PO QAM@0600 [facility] Last Admin: 03/17/18 05:26 Dose: 150 mcg Lisinopril (Prinivil Tab*) 10 mg PO DAILY [facility] Last Admin: 03/17/18 08:51 Dose: 10 mg [place] Carbonate ([place] Carbonate Tab*) 300 mg PO BID [facility] Last Admin: 03/17/18 08:50 Dose: 300 mg Mometasone Furoate (Asmanex 220 Mcg Mdi *) 2 puff INH BID [facility] Last Admin: 03/17/18 07:53 Dose: 2 puff Multivitamins/Minerals (Theragran/Minerals Tab*) 1 tab PO DAILY [facility] Last Admin: 03/17/18 08:50 Dose: 1 tab Ondansetron HCl (Zofran Inj*) 4 mg IV Q6H PRN PRN Reason: NAUSEA Last Admin: 03/13/18 15:16 Dose: 4 mg Pantoprazole Sodium (Protonix Tab (Nf)) 40 mg PO BID [facility] Last Admin: 03/17/18 08:50 Dose: 40 mg Tiotropium [place] (Spiriva Cap.Inh*) 1 cap INH DAILY [facility] Last Admin: 03/17/18 07:51 Dose: 1 cap Vital Signs - 8 hr 03/17/18 03/17/18 03/17/18 07:50 08:03 11:16 Temperature 98.0 F 97.9 F Pulse Rate 58 71 Respiratory 22 20 20 Rate Blood Pressure 106/54 106/58 (mmHg) O2 Sat by Pulse 96 97 Oximetry Oxygen Devices in Use Now: None Appearance: Patient is a 72yo female who appears stated age and is sitting in the bed in [facility]. Eyes: No Scleral Icterus, PERRLA Ears/Nose/Mouth/Throat: NL Teeth, Lips, Gums, Clear Oropharnyx, Mucous Membranes Moist Neck: NL Appearance and Movements; NL JVP, Trachea Midline Respiratory: Symmetrical Chest Expansion and Respiratory Effort, Clear to Auscultation Cardiovascular: NL Sounds; No Murmurs; No JVD, RRR, No Edema Abdominal: NL Sounds; No Tenderness; No Distention, No Hepatosplenomegaly Lymphatic: No Cervical Adenopathy Extremities: No Edema, No Clubbing, Cyanosis Skin: No Rash or Ulcers, No Nodules or Sclerosis Neurological: NL Sensation, NL Muscle Strength and Tone, - - Left sided facial droop. At this writers known baseline. Alert and oriented to place and self. Result Diagrams: 03/16/18 06:25 03/17/18 05:57 Additional Lab and Data: Laboratory Results - last 24 hr Microbiology and Other Data: Microbiology 03/08/18 11:25 Aerobic Blood Culture - Final Blood Venous No Growth Day 5 Anaerobic Blood Culture - Final No Growth Day 5 03/08/18 10:10 Aerobic Blood Culture - Final Blood Venous No Growth Day 5 Anaerobic Blood Culture - Final No Growth Day 5 03/09/18 20:00 Influenza Types A,B Antigen - Final Nasal Specimen received for Influenza A/B Molecular testing 03/08/18 13:05 Urine Culture - Final Urine 03/08/18 13:03 Legionella Urinary Antigen - Final Urine Negative Legionella Antigen Streptococcus pneumoniae Ag Screen - Final Negative S. pneumo Antigen Assess/Plan/Problems-Billing Assessment: Ms. Cavanaugh is a 72 yo F with PMH of developmental delay, COPD, HTN, bipolar, and hypothyroidism; who presented to the ED with because of AMS and lethargy and was found to have sepsis secondary to community-acquired pneumonia. Patient in the hospital has had several episodes of various degrees of heart block and had a event monitor placed. - Patient Problems (1) Community acquired pneumonia Current Visit: Yes Status: Acute Code(s): J18.9 - PNEUMONIA, UNSPECIFIED ORGANISM SNOMED Code(s): 829828158 Comment: - Symptoms resolved - CxR shows multifocal consolidation - Negative strep and legionella urine antigens - Continue ceftriaxone (day 11/29), Mucinex (2) High degree atrioventricular block Current Visit: Yes Status: Acute Code(s): I44.39 - OTHER ATRIOVENTRICULAR BLOCK SNOMED Code(s): 894643169 Comment: - On 03/10 tele showed 10 seconds of ventricular standstill with normal P waves, then a 2:1 conduction and a few short pauses for approx 20 more seconds, then spontaneous conversion to NSR in the 70s; accompanied by 1 episode of emesis - Had 2 short episodes of SVT on 03/12; self converted to NSR - 3.2 second pause with several beats of Mobitz Type II - Appreciate Cardiology consult, recommend continuing to monitor. - Stopped labetalol; this should not be resumed at d/c - [employer] LINQ event monitor placed 03/13 - All episodes have been in setting of Aspirating, change to pureed diet. (3) Septic encephalopathy Current Visit: Yes Status: Acute Code(s): G93.41 - METABOLIC ENCEPHALOPATHY SNOMED Code(s): 320134257 Comment: - Secondary to community acquired pneumonia - Mental status at baseline; facial droop at baseline. - MRI/MRA unremarkable for any acute findings - PT/OT (4) Acute urinary retention Current Visit: Yes Status: Acute Code(s): R33.8 - OTHER RETENTION OF URINE SNOMED Code(s): 659190338 Comment: - Multifactorial in the setting of acute illness. - On 03/10 PVR was >900; Gil placed and drained 1200mL - Failed trial void on 03/11 and 03/15 - Will need to be d/c'd with Gil and f/u with urology (5) Bipolar depression Current Visit: Yes Status: Acute Code(s): F31.30 - BIPOLAR DISORD, CRNT EPSD DEPRESS, MILD OR MOD SEVERT, UNSP SNOMED Code(s): 155511426 Comment: - Continue lithium - Will need recheck of level after discharge (6) Creatinine elevation Current Visit: Yes Status: Acute Code(s): R79.89 - OTHER SPECIFIED ABNORMAL FINDINGS OF BLOOD CHEMISTRY SNOMED Code(s): 719821048 Comment: - Now back to baseline. - Repeat labs tomorrow (7) Developmental delay, moderate Current Visit: Yes Status: Acute Code(s): R62.50 - UNSP LACK OF EXPECTED NORMAL PHYSIOL DEV IN CHILDHOOD SNOMED Code(s): 726679668 Comment: - Supportive care (8) Full code status Current Visit: Yes Status: Acute Code(s): Z78.9 - OTHER SPECIFIED HEALTH STATUS SNOMED Code(s): 877161969 Comment: (9) Hypertension Current Visit: Yes Status: Acute Code(s): I10 - ESSENTIAL (PRIMARY) HYPERTENSION SNOMED Code(s): 28672983 Comment: - Normotensive, SBP 90-110s - Hold chlorthalidone, felodipine; likely will not need to resume these at d/c as she is well controlled on one agent - Continue lisinopril (10) Hypothyroidism Current Visit: Yes Status: Acute Code(s): E03.9 - HYPOTHYROIDISM, UNSPECIFIED SNOMED Code(s): 36032796 Comment: - Continue levothyroxine (11) DVT prophylaxis Current Visit: Yes Status: Acute Code(s): HPS9834 - SNOMED Code(s): 553342596 Comment: - Heparin SQ Status and Disposition: Inpatient for acute infection requiring IV antibiotics. Anticipate d/c to [facility] as her [facility] is not able to take her back with acute PT/OT needs. When medically stable. Hopefully Monday if no pacemaker indicated.
[2018-03-17] MEDS: Atorvastatin* 40 MG TAB PO SCH (21:49)
[2018-03-18] MEDS: Heparin VIAL(*) 5000 UNITS/ML VIAL (FIVE THOUSAND) SUBCUT SCH ×3 (05:30→20:55)
[2018-03-18] MEDS: Levothyroxine TAB* 150 MCG TAB PO SCH (05:31)
[2018-03-18 07:11] LABS: BUN/Creatinine Ratio 31.1 (8-20); Calcium 9.9 mg/dL (8.6-10.3); EGFR African American 63.4 (>60); EGFR Non-African American 52.4 (>60); Potassium 4.1 mmol/L (3.5-5.0)
[2018-03-18] MEDS: Tiotropium CAP.INH* CAP.INH/18 MCG (USE ORDER SET !) INH SCH (07:25)
[2018-03-18] MEDS: Mometasone 220 MCG MDI INH SCH ×2 (07:25→19:25)
[2018-03-18] MEDS: Lithium Carbonate TAB* 300 MG PO SCH ×2 (08:48→20:55)
[2018-03-18] MEDS: Pantoprazole TAB * 40 MG TAB PO SCH ×2 (08:48→20:55)
[2018-03-18] MEDS: Multivitamins/Minerals TAB PO SCH (08:48)
[2018-03-18] MEDS: guaiFENesin ER TAB 600 MG PO SCH ×2 (08:48→20:55)
[2018-03-18] MEDS: Lisinopril TAB* 10 MG PO SCH (09:22)
--- NOTE | 2018-03-18 17:14 | PN ---
Subjective Date of Service: 03/18/18 Interval History: Patient is at her baseline mentally, difficult to understand due to mucus in throat. Patient denies F/C, CP, SOB, N/V, abdominal pain, dizziness, palpitations, or other pain. When asked about pacemaker patient does not seem to understand what is being asked of her. Family History: Unchanged from Admission Social History: Unchanged from Admission Past Medical History: Unchanged from Admission Objective Active Medications: Acetaminophen (Tylenol Tab*) 650 mg PO Q6H PRN PRN Reason: FEVER/PAIN Last Admin: 03/13/18 15:15 Dose: 650 mg Albuterol/Ipratropium (Duoneb (Albuterol 2.5 Mg/Ipratropium 0.5 Mg)) 1 neb INH Q6H PRN PRN Reason: SOB/WHEEZING Atorvastatin Calcium (Lipitor*) 80 mg PO BEDTIME [facility] Last Admin: 03/17/18 21:49 Dose: 80 mg Benzonatate (Tessalon Cap*) 100 mg PO BID PRN PRN Reason: COUGH Guaifenesin (Mucinex*) 1,200 mg PO BID [facility] Last Admin: 03/18/18 08:48 Dose: 1,200 mg Heparin Sodium (Porcine) (Heparin Vial(*)) 5,000 units SUBCUT Q8HR [facility] Last Admin: 03/18/18 13:21 Dose: 5,000 units Levothyroxine Sodium (Synthroid Tab*) 150 mcg PO QAM@0600 [facility] Last Admin: 03/18/18 05:31 Dose: 150 mcg Lisinopril (Prinivil Tab*) 10 mg PO DAILY [facility] Last Admin: 03/18/18 09:22 Dose: Not Given [place] Carbonate ([place] Carbonate Tab*) 300 mg PO BID [facility] Last Admin: 03/18/18 08:48 Dose: 300 mg Mometasone Furoate (Asmanex 220 Mcg Mdi *) 2 puff INH BID [facility] Last Admin: 03/18/18 07:25 Dose: Not Given Multivitamins/Minerals (Theragran/Minerals Tab*) 1 tab PO DAILY [facility] Last Admin: 03/18/18 08:48 Dose: 1 tab Ondansetron HCl (Zofran Inj*) 4 mg IV Q6H PRN PRN Reason: NAUSEA Last Admin: 03/13/18 15:16 Dose: 4 mg Pantoprazole Sodium (Protonix Tab (Nf)) 40 mg PO BID [facility] Last Admin: 03/18/18 08:48 Dose: 40 mg Tiotropium [place] (Spiriva Cap.Inh*) 1 cap INH DAILY [facility] Last Admin: 03/18/18 07:25 Dose: Not Given Vital Signs - 8 hr 03/18/18 03/18/18 11:39 15:22 Temperature 97.8 F 97.7 F Pulse Rate 66 73 Respiratory 16 16 Rate Blood Pressure 113/70 99/66 (mmHg) O2 Sat by Pulse 94 97 Oximetry Oxygen Devices in Use Now: None Appearance: Patient is a 72yo female who appears stated age and is sitting in the bed in [facility]. Eyes: No Scleral Icterus, PERRLA Ears/Nose/Mouth/Throat: NL Teeth, Lips, Gums, Clear Oropharnyx, Mucous Membranes Moist Neck: NL Appearance and Movements; NL JVP, Trachea Midline Respiratory: Symmetrical Chest Expansion and Respiratory Effort, Clear to Auscultation, - - Rhonchi in the bronchial areas. Cardiovascular: NL Sounds; No Murmurs; No JVD, RRR, No Edema Abdominal: NL Sounds; No Tenderness; No Distention, No Hepatosplenomegaly Lymphatic: No Cervical Adenopathy Extremities: No Edema, No Clubbing, Cyanosis Skin: No Rash or Ulcers, No Nodules or Sclerosis Neurological: NL Sensation, NL Muscle Strength and Tone, - - Diffusely weak, left sided facial droop at baseline. Result Diagrams: 03/16/18 06:25 03/18/18 06:07 Additional Lab and Data: Laboratory Results - last 24 hr Microbiology and Other Data: Microbiology 03/08/18 11:25 Aerobic Blood Culture - Final Blood Venous No Growth Day 5 Anaerobic Blood Culture - Final No Growth Day 5 03/08/18 10:10 Aerobic Blood Culture - Final Blood Venous No Growth Day 5 Anaerobic Blood Culture - Final No Growth Day 5 03/09/18 20:00 Influenza Types A,B Antigen - Final Nasal Specimen received for Influenza A/B Molecular testing 03/08/18 13:05 Urine Culture - Final Urine 03/08/18 13:03 Legionella Urinary Antigen - Final Urine Negative Legionella Antigen Streptococcus pneumoniae Ag Screen - Final Negative S. pneumo Antigen Assess/Plan/Problems-Billing Assessment: Ms. Cavanaugh is a 72 yo F with PMH of developmental delay, COPD, HTN, bipolar, and hypothyroidism; who presented to the ED with because of AMS and lethargy and was found to have sepsis secondary to community-acquired pneumonia. Patient in the hospital has had several episodes of various degrees of heart block and had a event monitor placed. - Patient Problems (1) Community acquired pneumonia Current Visit: Yes Status: Acute Code(s): J18.9 - PNEUMONIA, UNSPECIFIED ORGANISM SNOMED Code(s): 015821437 Comment: - Symptoms resolved - CxR shows multifocal consolidation - Negative strep and legionella urine antigens - Finished antibiotics - Symptomatic treatment with Mucinex, ISB, Flutter Valve, Benzonatate. (2) High degree atrioventricular block Current Visit: Yes Status: Acute Code(s): I44.39 - OTHER ATRIOVENTRICULAR BLOCK SNOMED Code(s): 686630847 Comment: - On 03/10 tele showed 10 seconds of ventricular standstill with normal P waves, then a 2:1 conduction and a few short pauses for approx 20 more seconds, then spontaneous conversion to NSR in the 70s; accompanied by 1 episode of emesis - Had 2 short episodes of SVT on 03/12; self converted to NSR - 3.2 second pause with several beats of Mobitz Type II - Appreciate Cardiology consult, recommend continuing to monitor. - Stopped labetalol; this should not be resumed at d/c - [employer] LINQ event monitor placed 03/13 - All episodes have been in setting of Aspirating, change to pureed diet. (3) Septic encephalopathy Current Visit: Yes Status: Acute Code(s): G93.41 - METABOLIC ENCEPHALOPATHY SNOMED Code(s): 473693950 Comment: - Secondary to community acquired pneumonia - Mental status at baseline; facial droop at baseline. - MRI/MRA unremarkable for any acute findings - PT/OT (4) Acute urinary retention Current Visit: Yes Status: Acute Code(s): R33.8 - OTHER RETENTION OF URINE SNOMED Code(s): 651840626 Comment: - Multifactorial in the setting of acute illness. - On 03/10 PVR was >900; Gil placed and drained 1200mL - Failed trial void on 03/11 and 03/15 - Will need to be d/c'd with Gil and f/u with urology (5) Bipolar depression Current Visit: Yes Status: Acute Code(s): F31.30 - BIPOLAR DISORD, CRNT EPSD DEPRESS, MILD OR MOD SEVERT, UNSP SNOMED Code(s): 583763565 Comment: - Continue lithium - Will need recheck of level after discharge per terminal carman monitoring. (6) Creatinine elevation Current Visit: Yes Status: Acute Code(s): R79.89 - OTHER SPECIFIED ABNORMAL FINDINGS OF BLOOD CHEMISTRY SNOMED Code(s): 196120164 Comment: - Near Baseline - Continue to monitor. (7) Developmental delay, moderate Current Visit: Yes Status: Acute Code(s): R62.50 - UNSP LACK OF EXPECTED NORMAL PHYSIOL DEV IN CHILDHOOD SNOMED Code(s): 621558624 Comment: - Supportive care (8) Full code status Current Visit: Yes Status: Acute Code(s): Z78.9 - OTHER SPECIFIED HEALTH STATUS SNOMED Code(s): 902686084 Comment: (9) Hypertension Current Visit: Yes Status: Acute Code(s): I10 - ESSENTIAL (PRIMARY) HYPERTENSION SNOMED Code(s): 20012705 Comment: - Normotensive, SBP 90-110s - Hold chlorthalidone, felodipine; likely will not need to resume these at d/c as she is well controlled on one agent - Continue lisinopril (10) Hypothyroidism Current Visit: Yes Status: Acute Code(s): E03.9 - HYPOTHYROIDISM, UNSPECIFIED SNOMED Code(s): 85101869 Comment: - Continue levothyroxine (11) DVT prophylaxis Current Visit: Yes Status: Acute Code(s): OPP2774 - SNOMED Code(s): 867968915 Comment: - Heparin SQ Status and Disposition: Inpatient for acute infection requiring IV antibiotics. Anticipate d/c to [facility] as her detention is not able to take her back with acute PT/OT needs. When medically stable. Hopefully Monday if no pacemaker indicated.
[2018-03-18] MEDS: Atorvastatin* 40 MG TAB PO SCH (20:55)
[2018-03-19] MEDS: Levothyroxine TAB* 150 MCG TAB PO SCH (05:21)
[2018-03-19] MEDS: Heparin VIAL(*) 5000 UNITS/ML VIAL (FIVE THOUSAND) SUBCUT SCH (05:21)
[2018-03-19 06:23] LABS: ABS Basophils 0.1 10^3/ul (0-0.2); ABS Eosinophils 0.3 10^3/ul (0-0.6); ABS Lymphocytes 1.2 10^3/ul (1.0-4.8); ABS Monocytes 0.4 10^3/ul (0-0.8); ABS Neutrophils 8.6 10^3/ul (1.5-7.7); ABS Nucleated RBC 0 10^3/ul; Eosinophil % 3.1 %; Hematocrit 39 % (35-47); Hemoglobin 12.9 g/dl (12.0-16.0); Lymphocyte % 11.1 %; Mean Corpuscular HGB Conc 33 g/dl (31-36); Mean Corpuscular Hemoglobin 31 pg (27-31); Mean Corpuscular Volume 93 fL (80-97); Mean Platelet Volume 7.7 fL (7.4-10.4); Nucleated Red Blood Cells % 0.1; Platelet Count 409 10^3/ul (150-450); Red Blood Count 4.19 10^6/ul (4.00-5.40); Red Cell Distribution Width 16 % (10.5-15); White Blood Count 10.7 10^3/ul (3.5-10.8)
[2018-03-19 06:38] LABS: Calcium 9.8 mg/dL (8.6-10.3); Magnesium 2.3 mg/dL (1.9-2.7); Potassium 4.8 mmol/L (3.5-5.0)
[2018-03-19 06:44] LABS: BUN/Creatinine Ratio 28.7 (8-20); EGFR African American 70.4 (>60); EGFR Non-African American 58.2 (>60)
[2018-03-19] MEDS: Pantoprazole TAB * 40 MG TAB PO SCH (08:05)
[2018-03-19] MEDS: Lithium Carbonate TAB* 300 MG PO SCH (08:05)
[2018-03-19] MEDS: Multivitamins/Minerals TAB PO SCH (08:06)
[2018-03-19] MEDS: guaiFENesin ER TAB 600 MG PO SCH (08:06)
[2018-03-19] MEDS: Tiotropium CAP.INH* CAP.INH/18 MCG (USE ORDER SET !) INH SCH (08:10)
[2018-03-19] MEDS: Mometasone 220 MCG MDI INH SCH (08:10)
[2018-03-19] MEDS ORDERED: Lisinopril TAB* 5 MG PO SCH (09:00)
[2018-03-19] MEDS ORDERED: Ondansetron TAB* 4 MG PO SCH (09:00)
[2018-03-19 11:59] VITALS: BP 96/58
--- NOTE | 2018-03-19 13:08 | DS ---
CC: Dr. Magali Oglesby, [facility]; Dr. Jenny Antoine, Cardiology; Dr. Elif Luevano * DATE OF ADMISSION: 03/08/2018. DATE OF DISCHARGE: 03/19/2018. PRIMARY CARE PHYSICIAN: Dr. Elif Luevano. MY ATTENDING PHYSICIAN WHILE IN THE HOSPITAL: Dr. Katiana Sanches * (dictated by CRISTEL Mendoza). PRIMARY DISCHARGE DIAGNOSES: Community-acquired pneumonia, ventricular standstill in the setting of vagal stimulus; acute urinary retention. SECONDARY DIAGNOSES: COPD, developmental delay, bipolar disorder, hypertension , hyperlipidemia, hypothyroidism, iron deficiency anemia, nystagmus, osteoarthritis, colon polyps, elevated PTT, osteoarthritis, lung nodules. STUDIES DONE WHILE IN THE HOSPITAL: 1. Brain CT from 03/08/2018, read as: No acute intracranial pathology. 2. Chest x-ray from 03/08/2018, read as: Multifocal consolidation; recommend follow-up until resolution to exclude underlying pulmonary parenchymal pathology. 3. Electrocardiogram from 03/08/2018 shows sinus tachycardia, prolonged AL interval, normal axis, incomplete right bundle branch block, possible left atrial enlargement, no hypertrophy. 4. Repeat EKG from 03/10/2018 shows no significant changes. 5. Repeat EKG from 03/11/2018 shows no significant changes, QTC of 416, rate of 79. 6. Brain MRI from 03/08/2018, read as: No acute intracranial abnormality. 7. Head MRA from 03/08/2018, read as: No acute findings. 8. Neck MRA from 03/08/2018, read as: No hemodynamically significant stenosis. 9. Transthoracic echocardiogram from 03/10/2018, read as: Mild to moderate concentric left ventricular hypertrophy; normal left ventricular systolic function; estimated ejection fraction is 55 to 60 percent; right ventricular global systolic function is normal; no evidence of aortic stenosis; no evidence of mitral regurgitation; trace to mild tricuspid regurgitation; right ventricular systolic pressure is estimated to be 35 to 40 mmHg. MEDICATIONS AT DISCHARGE: 1. Levothyroxine 150 mcg p.o. q.a.m. 2. Flovent two puffs p.o. b.i.d. 3. Atorvastatin 80 mg p.o. at bedtime. 4. Tylenol 650 mg p.o. q.6 hours as needed. 5. Incruse Ellipta one puff inhalation daily. 6. Omeprazole 20 mg p.o. b.i.d. 7. Evans Carbonate 300 mg p.o. b.i.d. 8. Multivitamin one tab p.o. daily. 9. DuoNeb one nebulizer inhalation q.6 hours as needed. 10. Tessalon 100 mg p.o. b.i.d. as needed. 11. Guaifenesin 1200 mg p.o. b.i.d. 12. Lisinopril 5 mg p.o. daily. 13. Zofran 4 mg p.o. q.6 hours as needed for nausea. Medications discontinued at discharge: 1. Fluticasone nasal spray. 2. Labetalol 200 mg p.o. b.i.d. 3. Bacitracin ointment. 4. Chlorthalidone 25 mg p.o. daily. 5. Felodipine 10 mg p.o. daily. 6. Vitamin D 1,000 units p.o. daily. HOSPITAL COURSE: This is a brief summary of the patient's presentation. For more details, please see history and physical from CRISTEL Mendoza on 2018. In brief, the patient is a 72-year-old female with a past medical history as noted above who presented to the emergency department with a one day history of confusion, lethargy, weakness, and severe shortness of breath with exertion. The patient, in the emergency department, was noted to have new onset facial droop, but had known history of facial droop on her left eye per staff. The patient came to the emergency department and had a chest x-ray as above. The patient has had no previous history of difficulty swallowing and no evidence of aspiration. The patient was started on treatment with Azithromycin and Ceftriaxone for community-acquired pneumonia. The patient was initially started on 3 liters of oxygen at all times. It was able to be tapered down. The patient initially had a severely elevated white blood cell count of 27.3 which trended down. The patient initially had a severe low potassium which was repleted, a lipid panel which was within normal limits, LFT's which trended down. The patient had a hemoglobin A1c of 5.4 and a TSH of 0.68. The patient has hypernatremia during the hospitalization which resolved with fluid supplementation. The patient's creatinine stayed around her baseline during her entire hospitalization with a slight increase towards the end of her hospitalization after being restarted on Lisinopril. The patient on the second day of her hospitalization was found to have urinary retention and a Gil catheter was placed. The patient was then found to have a ten second ventricular standstill while coughing. After aspirating on food, the patient had a speech therapy consult which recommended thin liquids with straws okay, a mechanical ground texture with extra sauces. The patient was seen in consultation by Dr. Antoine who believed this was a provoked episode and recommended an event monitor. This was discussed by Cardiology with the patient's healthcare proxy and they want to avoid a pacemaker if possible. The patient had an event monitor placed on 03/13/[address] Bi Everett. The patient's peaked respiratory status continued to improved. The patient failed two void trials. The patient on 03/17/2018 had an other short episode of ventricular standstill, also in the setting of aspiration. The patient was switched to a pureed diet. The patient then on 03/19/2018 had an episode of vomiting where she stated she did not like the eggs she had in the morning and with this episode had another episode of ventricular standstill. This was discussed both times with Cardiology who continued to recommend monitoring with the event monitor while the patient's episodes are provoked. The patient had no syncope with either of these episodes. The patient was stable and amenable for discharge on 03/19/2018. PHYSICAL EXAMINATION ON THE DAY OF DISCHARGE: General: The patient is a 72- year- old female who appears her stated age, sitting comfortably in the bed in no acute distress. Vital Signs: Temperature 98.3, pulse rate 67, pulse rate 16 , oxygen 96 percent on room air, blood pressure 125/70. HEENT: Head normocephalic, atraumatic. Sclerae anicteric. No conjunctival injection. Nasal mucosa moist. Oral mucosa moist. No pharyngeal erythema, discharge or exudate. Neck: Supple, nontender. No lymphadenopathy. No carotid bruit auscultated. No JVD. Cardiac: Regular rate and rhythm. No clicks, murmurs, gallops, or rubs. Pulse 2+ in bilateral dorsalis pedis, posterior tibialis and radial areas. Respiratory: Clear to auscultation bilaterally. No wheezes or rhonchi. Good air exchange bilaterally. Abdomen: Soft, nontender, nondistended. Bowel sounds present and normoactive in all four quadrants. No hepatosplenomegaly. No abdominal bruits auscultated. No hepatojugular reflux. Genitourinary: No suprapubic or CVA tenderness. Gil intact, draining clear yellow urine. Neuro: Left-sided facial droop, unchanged since admission. Cranial nerves II through XII otherwise intact. No other focal deficits. Alert and oriented only to self. Psychiatric: Pleasant and cooperative. LABORATORY DATA: On the day of discharge, white blood cell count 10.7, hemoglobin 12.9, platelet count 409; sodium 137, potassium 4.8, chloride 107, carbon dioxide 24, anion gap 6, BUN 27, creatinine 0.94, glucose 99, calcium 9.8, magnesium 2.3. DISCHARGE PLAN: The patient will be discharged to [facility] rehab facility for rehab before hopefully returning to her fpc in [place]. The patient' s healthcare proxy has been updated on this plan and is in agreement. The patient had an event monitor placed. The patient should have her event monitor recorder with her at all times. The patient should follow-up with Dr. Antoine of Cardiology within one to two weeks. The patient should have ongoing monitoring per recommendations with low dose lung CT's to monitor for resolution of her multifocal infiltrates. The patient should return to the hospital for severe shortness of breath, chest pain, or passing out. The patient had several episodes of ventricular standstill. Nausea should be actively avoided in this patient if possible. The patient should have a pureed diet with thin liquids and straws and should be encouraged to eat slowly and should sit up at 90 degrees while eating. The patient has finished her antibiotics. The patient will have Guaifenesin as an expectorant and Benzonatate for a cough inhibitor as above. The patient should follow-up with her primary care provider only if discharged from [facility]. The patient should follow-up with Urology in approximately one week from discharge for having her Gil removed and for urodynamic testing if indicated. The patient should continue activities as tolerated and work with PT and OT to help restore functional status. TIME SPENT: Approximately 60 minutes were spent on the discharge of this patient, 30 of which were spent [id number] with the patient obtaining history and physical and discussing treatment plan. This has been discussed with my attending, Dr. Katiana Sanches, and she is in agreement. CRISTEL MENDOZA [id number]/TITUS #: [id number] CLARK
== END 2018-03-19 13:00 | DRG 853 ==
LOC: ED 10:30 → MEDTELE 13:17
PROVIDERS: ADMIT Internal Medicine; ATTEND Internal Medicine
PROC: 0T9B70Z Drainage of Bladder with Drainage Device, Via Natural or Artificial Opening (ICD-10-PCS; 2018-03-11)
PROC: 0JH602Z Insertion of Monitoring Device into Chest Subcutaneous Tissue and Fascia, Open Approach (ICD-10-PCS; principal; 2018-03-13 10:30)
DX: A41.9 Sepsis, unspecified organism (principal); J18.9 Pneumonia, unspecified organism; G93.41 Metabolic encephalopathy; I46.9 Cardiac arrest, cause unspecified; I47.0 Re-entry ventricular arrhythmia; E87.0 Hyperosmolality and hypernatremia; I47.2 Ventricular tachycardia; R33.8 Other retention of urine; I44.39 Other atrioventricular block; F31.9 Bipolar disorder, unspecified; I10 Essential (primary) hypertension; E78.5 Hyperlipidemia, unspecified; E03.9 Hypothyroidism, unspecified; J43.9 Emphysema, unspecified; R62.50 Unspecified lack of expected normal physiological development in childhood; G47.30 Sleep apnea, unspecified; K21.9 Gastro-esophageal reflux disease without esophagitis; M19.042 Primary osteoarthritis, left hand; I07.1 Rheumatic tricuspid insufficiency; R29.810 Facial weakness; M19.041 Primary osteoarthritis, right hand; F41.9 Anxiety disorder, unspecified; H26.9 Unspecified cataract; H35.30 Unspecified macular degeneration; I45.10 Unspecified right bundle-branch block; R91.8 Other nonspecific abnormal finding of lung field; R40.2362 Coma scale, best motor response, obeys commands, at arrival to emergency department; D50.9 Iron deficiency anemia, unspecified; R40.2142 Coma scale, eyes open, spontaneous, at arrival to emergency department; J30.2 Other seasonal allergic rhinitis; R40.2252 Coma scale, best verbal response, oriented, at arrival to emergency department; E87.6 Hypokalemia; I48.91 Unspecified atrial fibrillation; Z90.710 Acquired absence of both cervix and uterus; Z87.891 Personal history of nicotine dependence; Z86.010 Personal history of colon polyps
CPT/HCPCS: 33285; 36415; 70030; 70250; 70450; 70544; 70547; 70551; 71045; 74018; 80048; 80051; 80053; 80061; 80178; 81003; 81015; 82803; 83036; 83605; 83735; 83880; 84443; 84484; 85025; 85610; 85730; 86618; 87040; 87086; 87899; 93005; 93306; 94640; 97530; 99283; A9270-GY; C1764; G8978-GP-CL; G8979-GP-CI; G8987-GO-CL; G8988-GO-CI; J0456; J0696; J1644; J1940; J2405; J3370; J3480

== ENCOUNTER 2018-03-21 11:26 | Inpatient (IN) | payer MEDICARE, MEDICAID ==
--- NOTE | 2018-03-21 11:40 | ED ---
Altered Mental Status - HPI Summary HPI Summary: A 72 y/o female brought in by [facility] ambulance presents to [facility] with a chief complaint of being unresponsive while she was at [facility] the morning of . Per triage note, "Pt presetns from [facility] via EMS, ALS for being found unresponsive. Pt awake and alert on arrival, pt hypotensive for EMS and on arrival. Pt recently diagnosed with PNU, was admitted here and discharged to [facility] from a long-term. Hx of MR." The patient is on abx for her PNA. She also has a developmental delay. She does not have a Hx of CHF. She denies any CP, rating her pain as a 0/10 in severity. - History Of Current Complaint Chief Complaint: EDAltMentalStatus Stated Complaint: AMS Time Seen by Provider: 03/21/18 11:29 Hx Obtained From: Patient, EMS Onset/Duration: Suddenly Timing: Constant, Lasting Hours Severity Initially: Mild Severity Currently: Mild Aggravating Factor(s): Nothing Alleviating Factor(s): Nothing Associated Signs And Symptoms: Positive: Negative - chest pain - Allergies/Home Medications Allergies/Adverse Reactions: Allergies Allergy/AdvReac Type Severity Reaction Status Date / Time No Known Allergies Allergy Verified 04/30/17 11:22 Home Medications: Home Medications Atorvastatin* [Lipitor*] 80 mg PO BEDTIME 03/21/18 [History Confirmed 03/21/18] Umeclidinium 62.5 MDI(NF) [Incruse ELLIPTA MDI (NF)] 1 puff INH DAILY 03/21/18 [ History Confirmed 03/21/18] PMH/Surg Hx/FS Hx/Imm Hx Endocrine/Hematology History: Reports: Hx Thyroid Disease - HYPOTHYROIDISM, Hx Anemia - HISTORY OF, BLOOD CLOTTING DISORDER Cardiovascular History: Reports: Hx Hypertension, Other Cardiovascular Problems/ Disorders - WEARS TEDS, LOWER EXTREMITY EDEMA Denies: Hx Pacemaker/ICD Respiratory History: Reports: Hx Chronic Obstructive Pulmonary Disease (COPD), Hx Sleep Apnea - USES OXYGEN 2 L/M WHILE SLEEPING, Other Respiratory Problems/ Disorders - COPD GI History: Reports: Hx Gastroesophageal Reflux Disease - TAKES RX Musculoskeletal History: Reports: Hx Arthritis - FINGERS AND HANDS Denies: Hx Osteoporosis Sensory History: Reports: Hx Cataracts - BILATERAL WITH MACULAR DEGENERATION, Hx Contacts or Glasses - GLASSES Denies: Hx Hearing Aid Opthamlomology History: Reports: Hx Cataracts - BILATERAL WITH MACULAR DEGENERATION, Hx Contacts or Glasses - GLASSES Neurological History: Reports: Other Neuro Impairments/Disorders - BIPOLAR DISORDER Psychiatric History: Reports: Hx Anxiety - CONTROL WITH MEDS, Hx Depression Denies: Hx Panic Disorder - Cancer History Hx Chemotherapy: No Hx Radiation Therapy: No - Surgical History Surgery Procedure, Year, and Place: HYSTERECTOMY- 1988- [facility] – [place]. UMBILICAL HERNIA REPAIR- 02/19/2015- [facility] – [place] Hx Anesthesia Reactions: No Infectious Disease History: Unable to Obtain/Confirm Infectious Disease History: Denies: History Other Infectious Disease, Traveled Outside the [place] in Last 30 Days - Family History Known Family History: Negative: Cardiac Disease, Hypertension, Diabetes - Social History Alcohol Use: None Hx Substance Use: No Substance Use Type: Reports: None Hx Tobacco Use: Yes Smoking Status (MU): Former Smoker Type: Cigarettes Amount Used/How Often: 1-2 PPD FOR MANY YEARS Length of Time of Smoking/Using Tobacco: "MANY YEARS" 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 Patient is not in any acute respiratory distress. HEAD AND FACE: Normocephalic EYES: PERRLA, EOMI x 2. EARS: Hearing grossly intact. MOUTH: Mucous membranes dry. NECK: Supple, trachea is midline, no adenopathy, no JVD, no carotid bruit. CHEST: Symmetric, no tenderness at palpation LUNGS: Rhonchi interiorly. No wheezing or crackles. CVS: Regular rate and rhythm, S1 and S2 present, no murmurs or gallops appreciated. ABDOMEN: Soft, non-tender. Bowel sounds are normal. No abdominal abnormal pulsations. EXTREMITIES: Full ROM in all major joints, no edema, no cyanosis or clubbing. NEURO: Alert and oriented x 3. No acute neurological deficits. Speech is normal and follows commands. SKIN: Dry and warm Triage Information Reviewed: Yes Vital Signs On Initial Exam: Initial Vitals Temp Pulse Resp BP Pulse Ox 97.1 F 57 22 88/53 93 03/21/18 11:30 03/21/18 11:30 03/21/18 11:30 03/21/18 11:30 03/21/18 11:30 Vital Signs Reviewed: Yes Diagnostics - Vital Signs Vital Signs Temp Pulse Resp BP Pulse Ox 03/21/18 11:30 97.1 F 57 22 88/53 93 - Laboratory Result Diagrams: 03/21/18 11:48 03/21/18 11:48 Lab Statement: Any lab studies that have been ordered have been reviewed, and results considered in the medical decision making process. - Radiology Lung Scan-VQ NM Radiology Interpretation Completed By: Radiologist Summary of Radiographic Findings: LOW PROBABILITY FOR PULMONARY EMBOLISM. ED physician has reviewed this imaging report. CXR Radiology Interpretation Completed By: Radiologist Summary of Radiographic Findings: IMPRESSION: PERSISTENT BUT IMPROVING MULTIFOCAL CONSOLIDATION. ED physician has reviewed this imaging report. - Ultrasound No standard instances Ultrasound Interpretation Completed By: Radiologist Summary of Ultrasound Findings: The transthoracic echocardiogram conclusions were: The left ventricular chamber size is mildly dilated. Global left ventricular wall motion and contractility are within normal. limits. The estimated ejection fraction is 55-60%. The right ventricular global systolic function is low normal. The aortic valve leaflets are mildly thickened with normal function. There is trace to mild mitral regurgitation. There is mild tricuspid regurgitation. Compared with recent echo of 02/2118, ventricular and valvular function. are not significantly changed. LV chamber dilatation newly noted. Measurements. Name: RVIDd (AP), 2D Value: 1.9 cm, Normal Range: (0.9 - 2.6). ED physician has reviewed this imaging report. - EKG 11:33 Cardiac Rate: Bradycardia - 57 bpm EKG Rhythm: Sinus Bradycardia EKG Comparison: Other - EKG looks different compared to previous EKG Summary of EKG Findings: Sinus bradycardia at [address] elevations in lateral leads with no reciprocal changes. This EKG looks different compared to previous EKG. 11:54 Cardiac Rate: Bradycardia - 52 bpm EKG Rhythm: Sinus Bradycardia Summary of EKG Findings: Sinus bradycardia at 52 bpm with LVH but no ST elevation. Re-Evaluation - Re-Evaluation First Eval Re-Evaluation Time: 11:53 Change: Unchanged Comment: claims that she "scared it away" when asked if she had any chest pain Altered Mental Statu Course/Dx - Course Course Of Treatment: A 72 y/o female brought in by [facility] ambulance presents to [facility] with a chief complaint of being unresponsive while she was at [facility] the morning of 03/21/18. The patient was bradycardic and hypotensive upon arrival. Workup is remarkable. The physical exam revealed that her mucous membranes were dry and she had rhonchi interiorly. An EKG at 11:33 showed Sinus bradycardia at [address] elevations in lateral leads with no reciprocal changes. This EKG looks different compared to previous EKG. At 11:[address] Torres due to ST elevation on the EKG, who suggested discussing the case with Dr. Thomas for another opinion on the EKG and recommended an echo stat. At 11:[address] Thomas, who recommended an Echo stat and another EKG. The EKG at 11:54 showed sinus bradycardia at 52 bpm with LVH but no ST elevation. He saw the patient in the ED. He reports that last time when the patient was admitted she was bradycardic and had pauses but she was then sent home with a loop recorder. He states that Dr. Torres will take over. Discussed case with the unemployment benefits claims taker, Dr. Antonio, who will see the patient in the ED and evaluate the patient before deciding on whether to admit the patient to the ICU. The transthoracic echocardiogram conclusions were: The left ventricular chamber size is mildly dilated. Global left ventricular wall motion and contractility are within normal. limits. The estimated ejection fraction is 55-60%. The right ventricular global systolic function is low normal. The aortic valve leaflets are mildly thickened with normal function. There is trace to mild mitral regurgitation. There is mild tricuspid regurgitation. Compared with recent echo of 02/2118, ventricular and valvular function. are not significantly changed. LV chamber dilatation newly noted. Measurements. Name: RVIDd (AP), 2D Value: 1.9 cm, Normal Range: (0.9 - 2.6). Lung scan-VQ NM impression: LOW PROBABILITY FOR PULMONARY EMBOLISM. CXR IMPRESSION: PERSISTENT BUT IMPROVING MULTIFOCAL CONSOLIDATION. After discussing the case with Dr. Torres, she does not believe that it is cardiac related. Discussed case with Dr. Salcido, hospitalist, who accepted the patient for admission. The patient will be admitted. She is agreeable with this plan. - Diagnoses Provider Diagnoses: Pneumonia, Hypotension - Provider Notifications Discussed Care Of Patient With: Tita Torres Time Discussed With Above Provider: 11:45 Instructed by Provider To: Other - Discussed case with Dr. Torres due to ST elevation on an EKG, who suggested discussing the case with Dr. Thomas for another opinion on the EKG and recommended an echo stat. - Critical Care Time Critical Care Time: 30-74 min Discharge - Sign-Out/Discharge Documenting (check all that apply): Patient Departure - admit - Discharge Plan Condition: Fair Disposition: ADMITTED TO [facility] - Billing Disposition and Condition Condition: FAIR Disposition: Admitted to [facility] - Attestation Statements Document Initiated by Bruceibe: Yes Documenting Scribe: Kenton Dukes Provider For Whom Adal is Documenting (Include Credential): Gretchen Sutton MD Scribe Attestation: Kenton Florentino, scribed for Gretchen Sutton MD on 03/21/18 at 1757. Scribe Documentation Reviewed: Yes Provider Attestation: The documentation as recorded by the bruceibKenton wagner accurately reflects the service I personally performed and the decisions made by me, Krishan Sutton MD Status of Scribe Document: Viewed Consult Consult: At 11:50 - Discussed case with Dr. Thomas, who recommended an Echo stat and another EKG. He saw the patient in the ED and then reports that Dr. Torres will take over. At 12:40 - Discussed case with the Staff Writer, Dr. Antonio, who will see the patient in the ED and evaluate the patient before deciding on whether to admit the patient to the ICU. At 13:12 - Discussed case with Dr. Torres, who does not believe that this is cardiac related. At 13:30 - Discussed case with Dr. Salcido, hospitalist, who accepted the patient for admission.
[2018-03-21] MEDS ORDERED: NS 0.9% 1000 ML** 2,000 ML IV ONE (11:42)
[2018-03-21] MEDS ORDERED: Piperacillin/Tazobac ADVAN(*) 3.375 GM in NS 0.9% 100 ML* 100 ML IVPB ONE (11:43)
[2018-03-21] MEDS ORDERED: Vancomycin(*) 1,000 MG in NS 0.9% 250 ML* 250 ML IVPB ONE (11:43)
[2018-03-21 11:57] LABS: Hematocrit 39 % (35-47); Hemoglobin 12.8 g/dl (12.0-16.0); Mean Corpuscular HGB Conc 33 g/dl (31-36); Mean Corpuscular Hemoglobin 31 pg (27-31); Mean Corpuscular Volume 93 fL (80-97); Mean Platelet Volume 8.3 fL (7.4-10.4); Platelet Count 569 10^3/ul (150-450); Red Blood Count 4.18 10^6/ul (4.00-5.40); Red Cell Distribution Width 16 % (10.5-15); White Blood Count 14.3 10^3/ul (3.5-10.8)
[2018-03-21] MEDS ORDERED: Zosyn per Pharmacy* NOTE FOLLOW UP SCH (12:00)
--- OUTSIDE RECORDS SUMMARY | 2018-03-21 12:04 | XMS REPORT | Continuity of Care Document ---
:1945 External Reference #:[id number] Author Name RickySaida Care Team Providers Name Role Phone Elif Luevano MD Primary Care Physician Unavailable Payers Type Date Identification Numbers Payment Provider Subscriber Effective: 1973 Policy Number: [id number] Medicare Carlene Hassan Acor PayID: [id number] [address] [place] [address] Policy Number: [id number] Medicaid Carlene Hassan Acor PayID: [id number] [address] [place] [address] Advance Directives Description No Information Available Problems Date Description Provider Status Onset: 12/21/2009 Chronic obstructive lung disease Elif Luevano M.D. Active Onset: 11/29/2012 Mixed hyperlipidemia Elif Luevano M.D. Active Onset: 11/29/2012 Hypothyroidism Elif Luevano M.D. Active Onset: 02/02/2015 Essential hypertension Elif Luevano M.D. Active Onset: 02/02/2015 Bipolar disorder Elif Luevano M.D. 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 Staffed 12/09. 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 Mary Gregg [phone]. 2. Tc Gregg same # ETOH Use Denies alcohol use Tobacco Use Start: Unknown End: Patient is a former Quit smoking at age 58, Unknown smoker started as a teen, smoked 1 ppd - about 40 pack yr, quit 09/10/03 Smoking Status Reviewed: 11/09/17 Patient is a former Quit smoking at age 58 , smoker started as a teen, smoked 1 ppd - about 40 pack yr, quit 09/10/03 Allergies, Adverse Reactions, Alerts Date Description Reaction Status Severity Comments 10/14/2009 No Known Drug Allergy Active Medications Medication Date Status Form Strength Qnty SIG Indications Ordering Provider Felodipine ER 09/18 Active Tablets ER 10mg 30tab 1 by mouth I10 Elif 24HR s every day Mino Luevano Labetalol HCL 08/17 Active Tablets 200mg 60tab 1 PO bid I10 Elif s Mino Luevano Chlorthalidone 07/11 Active Tablets 25mg 30tab 1 by mouth I10 Elif s every day Mino Luevano Bacitracin 09/13 [...] 07/25 Active 1unit for use J44.9 Elif /2015 s with Cotton, inhalers M.D. Nebulizer 01/21 Active Kit QS for use 4 Elif Kit/Tubing/Mout /2013 times daily Cotton, hpiece as needed M.D. Tylenol 04/03 Active Tablets 325mg 120ta 1-2 by bs mouth every Bassem, 4-6 hrs as M.D. needed for pain Daily-Jairo 01/12 Active Tablets 90tab take one Elif s tablet by Cotton, mouth every M.D. day Trazodone HCL 10/16 Active Tablets 50mg 30tab 1 tablet Elif s once daily Bassem, at bedtime M.DSuzette [place] 10/14 Active Capsules 300mg 60cap 1 by mouth Elif Carbonate s twice daily Mino Luevano Flovent HFA 10/01 Active Aerosol 220mcg/Ac 3unit inhale two s puffs by Cotton, mouth twice M.D. [...] mouth 24HR s every day Mazin Luevano M.D. 09/18 Labetalol HCL 08/17 Hx Tablets 300mg 1 PO bid I10 Mazin Luevano M.DSuzette 08/17 Furosemide 04/19 Hx Tablets 20mg 45tab 1 by mouth R60.0 s 3 days a Bassem, - week M.D. 07/11 Felodipine ER 04/19 Hx Tablets ER 5mg 30tab 1 by mouth 24HR s every day Mazin Luevano M.D. 09/18 Cephalexin 04/06 Hx Tablets 500mg 9tabs take one L03.115 tablet Bassem - every 8 M.D. 04/13 hours for [...] days M.D. 12/03 Zostavax 02/15 Hx Solution [id number] 1unit 1 dose s/c Rec 0.65ML s [...] 07/11 Hx Tablets 325(65Fe) 30tab Take 1 Elif mg s Tablet By Cotton, - Mouth 3 M.D. 11/30 Times Weekly; Increase To Once Daily Over 2 To 3 Weeks Atorvastatin 06/29 Hx Tablets 40mg 90tab 1 by mouth Elif s once daily Cotton, - M.D. 07/04 Iron Supplement 04/02 Hx Tablets 325(65Fe) 30tab 1 po 3 Elif mg s times Cotton, - weekly, M.D. 11/30 increase to once daily over 2-3 weeks Bag [place] 01/04 Hx apply to Elif /2011 feet but Cotton, - not between M.D. 01/04 toes bid. Silicone Toe 01/04 Hx use daily Leif Wrap Sleeve and remove Cotton, - at [...] Hx Solution 0.5-2.5(3 60uni [address] [facility] [place]/Albuter )mg/3ML ts nebulizer Cotton, ol Sulfate - twice daily M.D. 05/04 Nebulizer 04/14 Hx 1unit use three s times daily Cotton, - as needed M.D. 05/04 Budesonide 04/14 Hx Suspension 0.5mg/2ML 60uni [address]ml [address] [facility] Respules ts nebulizer Cotton, - twice daily [...] Hx Tablets 20mg 100ta one tablet Elif / bs daily Cotton, - M.D. 10/22 Levaquin [...] - 10/05 Bacitracin Hx Ointment as needed / - 09/13 Amoxicillin/Cla Hx Tablets 875-125mg one tablet Unknown vulanat by mouth Potassium - twice daily 10/12 for 10 Labetalol HCL Hx Tablets 200mg 180ta take one I10 Elif /0000 bs tablet by Cotton, - mouth twice M.D. 08/17 a /2017 Cephalexin Hx Tablets 500mg take 1 by Unknown /0000 mouth three - times a day 12/21 x 7 Medications Administered in Office Medication Date Status Form Strength Qnty SIG Indications Ordering Provider PPD 02/08/20 Administered Injection Nurse Visit A 18 PPD 02/08/20 Administered Injection Elif 16 Mino Luevano PPD 12/12/19 Administered Injection Denise 08 Mino Castellanos PPD 08/30/19 Administered Injection Fabby Walker M.D. PPD 08/30/19 Administered Injection Fabby Walker M.D. Immunizations CPT Code Status Date Vaccine Lot # [id number] Given 11/23/2017 Influenza Virus Vaccine, Quadrivalent, Split, [id number] Preservative Free 79147 Given 01/27/2014 Pneumococcal Conjugate Vaccine 13 Valent For [id number] Intramuscular Use 06211 Given 01/10/2014 Flu Vaccine Split Virus Preservative Free For [id number] Indiv 3Yr Older 69213 Given 11/29/2012 Flu Vaccine Split Virus Preservative Free For [id number] Indiv 3Yr Older Q2038 Given 11/28/2011 Fluzone Vaccine [id number] 51574 Given 04/25/2011 Tdap - Tetanus/Diptheria/Acellular Pertussis [id number] Q2035 Given 11/23/2010 Afluria Vaccine [id number] 53929 Given 12/05/2009 Influenza Virus 3Yrs & Over 63059 Given 10/16/2009 Pneumonia Vaccine 35649 Given 02/27/2009 Influenza Virus Vaccine, Pandemic Formulation 93441 Given 10/13/2008 Influenza Virus 3Yrs & Over 60537 Given 12/12/2007 Influenza Virus 3Yrs & Over 39170 Given 12/12/2007 Influenza Virus 3Yrs & Over 35426 Given 11/29/2006 Influenza Virus 3Yrs & Over 38624 Given 08/29/2006 Tetanus And Diptheria (Td) For Adult Use Preservative Free Vital Signs Date Vital Result Comment 11/09/2017 9:55am Height 59 inches 4'11" Weight 148.00 lb with shoes Heart Rate 52 /min BP Systolic 108 mmHg sitting right arm BP Diastolic 72 mmHg sitting right arm O2 % BldC Oximetry 95 % BMI (Body Mass Index) 29.9 kg/m2 10/19/2017 7:36am Height 59 inches 4'11" Weight 147.00 lb Heart Rate 66 /min BP Systolic 119 mmHg BP Diastolic 70 mmHg Body Temperature 97.1 F O2 % BldC Oximetry 95 % BMI (Body Mass Index) 29.7 kg/m2 09/18/2017 8:42am Height 59 inches 4'11" Weight 147.00 lb Heart Rate 66 /min BP Systolic Sitting 148 mmHg BP Diastolic Sitting 89 mmHg O2 % BldC Oximetry 95 % BMI (Body Mass Index) 29.7 kg/m2 08/17/2017 7:44am Height 59 inches 4'11" Weight 149.00 lb Heart Rate 65 /min BP Systolic Sitting 156 mmHg BP Diastolic Sitting 85 mmHg O2 % BldC Oximetry 95 % BMI (Body Mass Index) 30.1 kg/m2 07/11/2017 2:13pm Height 59 inches 4'11" Weight 152.00 lb Heart Rate 68 /min BP Systolic 155 mmHg BP Diastolic 93 mmHg O2 % BldC Oximetry 96 % BMI (Body Mass Index) 30.7 kg/m2 06/06/2017 8:38am Height 59 inches 4'11" Weight 149.00 lb Heart Rate 68 /min BP Systolic Sitting 130 mmHg BP Diastolic Sitting 78 mmHg Respiratory Rate 14 /min O2 % BldC Oximetry 96 % BMI (Body Mass Index) 30.1 kg/m2 05/05/2017 10:17am Weight 153.00 lb Heart Rate 65 /min BP Systolic Sitting 120 mmHg BP Diastolic Sitting 60 mmHg Body Temperature 97.9 F O2 % BldC Oximetry 93 % 04/17/2017 2:28pm Weight 156.50 lb Heart Rate 79 /min BP Systolic Sitting 130 mmHg BP Diastolic Sitting 82 mmHg Body Temperature 97.6 F O2 % BldC Oximetry 92 % 04/10/2017 11:51am Weight 152.50 lb Heart Rate 67 /min BP Systolic 124 mmHg BP Diastolic 76 mmHg Body Temperature 96.9 F O2 % BldC Oximetry 92 % 04/06/2017 2:52pm Weight 154.50 lb Heart Rate 78 /min BP Systolic 124 mmHg BP Diastolic 72 mmHg Body Temperature 96.6 F O2 % BldC Oximetry 96 % 03/13/2017 3:21pm Weight 154.75 lb Heart Rate 63 /min BP Systolic 120 mmHg BP Diastolic 70 mmHg Body Temperature 97.7 F O2 % BldC Oximetry 97 % 12/23/2016 3:41pm Height 58 inches 4'10" Weight 144.00 lb Heart Rate 74 /min BP Systolic 130 mmHg BP Diastolic 80 mmHg Body Temperature 98.2 F O2 % BldC Oximetry 94 % BMI (Body Mass Index) 30.1 kg/m2 09/20/2016 3:38pm Weight 140.25 lb Heart Rate 84 /min BP Systolic 140 mmHg BP Diastolic 68 mmHg Body Temperature 98.6 F O2 % BldC Oximetry 96 % 08/30/2016 11:10am Weight 137.00 lb Heart Rate 60 /min BP Systolic Sitting 100 mmHg BP Diastolic Sitting 70 mmHg Respiratory Rate 16 /min Body Temperature 97.6 F 07/21/2016 8:38am Weight 134.00 lb Heart Rate 55 /min BP Systolic Sitting 136 mmHg BP Diastolic Sitting 70 mmHg O2 % BldC Oximetry 98 % 06/14/2016 2:10pm Weight 139.00 lb Heart Rate 81 /min BP Systolic Sitting 114 mmHg BP Diastolic Sitting 72 mmHg Body Temperature 97.8 F O2 % BldC Oximetry 94 % 06/06/2016 8:32am Heart Rate 82 /min BP Systolic Sitting 136 mmHg BP Diastolic Sitting 82 mmHg Respiratory Rate 16 /min 05/13/2016 2:29pm Weight 137.00 lb Heart Rate 62 /min BP Systolic Sitting 134 mmHg BP Diastolic Sitting 88 mmHg Body Temperature 97.6 F O2 % BldC Oximetry 97 % 04/18/2016 9:02am Weight 133.00 lb Heart Rate 68 /min BP Systolic Sitting 124 mmHg BP Diastolic Sitting 86 mmHg Body Temperature 97.8 F O2 % BldC Oximetry 93 % 02/26/2016 7:38am Height 58 inches 4'10" Weight 139.00 lb Heart Rate 66 /min BP Systolic Sitting 136 mmHg BP Diastolic Sitting 77 mmHg Respiratory Rate 16 /min O2 % BldC Oximetry 97 % BMI (Body Mass Index) 29.0 kg/m2 02/11/2016 4:10pm Height 58 inches 4'10" Weight 137.00 lb Heart Rate 65 /min BP Systolic 130 mmHg BP Diastolic 78 mmHg O2 % BldC Oximetry 95 % BMI (Body Mass Index) 28.6 kg/m2 02/08/2016 3:09pm Height 58 inches 4'10" Weight 137.00 lb Heart Rate 70 /min BP Systolic Sitting 140 mmHg BP Diastolic Sitting 80 mmHg O2 % BldC Oximetry 98 % BMI (Body Mass Index) 28.6 kg/m2 11/19/2015 10:05am Height 58.25 inches 4'10.25" Weight 139.00 lb Heart Rate 61 /min BP Systolic 139 mmHg BP Diastolic 82 mmHg Body Temperature 97.9 F O2 % BldC Oximetry 97 % BMI (Body Mass Index) 28.8 kg/m2 11/02/2015 3:00pm Weight 138.00 lb Heart Rate 68 /min BP Systolic Sitting 142 mmHg BP Diastolic Sitting 84 mmHg Body Temperature 98.3 F 10/13/2015 3:26pm Weight 137.00 lb Heart Rate 66 /min BP Systolic Sitting 124 mmHg BP Diastolic Sitting 72 mmHg Respiratory Rate 15 /min Body Temperature 98.4 F O2 % BldC Oximetry 98 % 09/29/2015 10:54am Weight 135.00 lb Heart Rate 76 /min BP Systolic Sitting 122 mmHg BP Diastolic Sitting 70 mmHg Respiratory Rate 15 /min Body Temperature 97.6 F O2 % BldC Oximetry 98 % 07/27/2015 10:14am Weight 139.00 lb Heart Rate 60 /min BP Systolic Sitting 136 mmHg BP Diastolic Sitting 73 mmHg Body Temperature 97.7 F O2 % BldC Oximetry 97 % 04/09/2015 3:51pm Height 58.25 inches 4'10.25" Weight 143.00 lb Heart Rate 72 /min BP Systolic Sitting 124 mmHg BP Diastolic Sitting 80 mmHg Respiratory Rate 14 /min O2 % BldC Oximetry 98 % BMI (Body Mass Index) 29.6 kg/m2 02/02/2015 1:31pm Height 58.25 inches 4'10.25" Weight 141.50 lb Heart Rate 77 /min BP Systolic Sitting 130 mmHg 146/76 BP Diastolic Sitting 80 mmHg 146/76 Respiratory Rate 20 /min Body Temperature 98.0 F O2 % BldC Oximetry 94 % BMI (Body Mass Index) 29.3 kg/m2 10/20/2014 10:05am Weight 143.00 lb Heart Rate 67 /min BP Systolic Sitting 122 mmHg BP Diastolic Sitting 70 mmHg Body Temperature 97.5 F O2 % BldC Oximetry 97 % 07/25/2014 8:47am Weight 144.00 lb Heart Rate 69 /min BP Systolic Sitting 146 mmHg BP Diastolic Sitting 81 mmHg Body Temperature 97.8 F 07/09/2014 10:20am Height 58.75 inches 4'10.75" Weight 143.00 lb Heart Rate 50 /min BP Systolic 112 mmHg BP Diastolic 62 mmHg O2 % BldC Oximetry 93 % BMI (Body Mass Index) 29.1 kg/m2 01/27/2014 10:00am Weight 151.00 lb Heart Rate 72 /min BP Systolic 110 mmHg BP Diastolic 60 mmHg Body Temperature 98.2 F O2 % BldC Oximetry 97 % 01/20/2014 1:25pm Height 58.75 inches 4'10.75" Weight 153.00 lb Heart Rate 96 /min BP Systolic Sitting 110 mmHg BP Diastolic Sitting 60 mmHg Body Temperature 101.5 F O2 % BldC Oximetry 90 % BMI (Body Mass Index) 31.2 kg/m2 01/10/2014 1:44pm Height 58.75 inches 4'10.75" Weight 153.50 lb Heart Rate 72 /min BP Systolic Sitting 128 mmHg BP Diastolic Sitting 70 mmHg Body Temperature 97.3 F O2 % BldC Oximetry 97 % BMI (Body Mass Index) 31.3 kg/m2 11/28/2013 1:17pm Weight 156.00 lb Heart Rate 90 /min BP Systolic Sitting 134 mmHg BP Diastolic Sitting 72 mmHg Body Temperature 100.6 F O2 % BldC Oximetry 98 % 07/02/2013 11:20am Weight 156.00 lb Heart Rate 60 /min BP Systolic Sitting 114 mmHg BP Diastolic Sitting 62 mmHg Body Temperature 98.5 F O2 % BldC Oximetry 95 % 04/01/2013 9:56am Weight 157.00 lb Heart Rate 60 /min BP Systolic 124 mmHg BP Diastolic 76 mmHg 11/29/2012 10:23am Height 58.5 inches 4'10.50" Weight 156.00 lb Heart Rate 64 /min BP Systolic Sitting 122 mmHg BP Diastolic Sitting 80 mmHg BMI (Body Mass Index) 32.0 kg/m2 10/05/2012 3:01pm Weight 154.50 lb Heart Rate 60 /min BP Systolic Sitting 130 mmHg BP Diastolic Sitting 70 mmHg Body Temperature 98.1 F 09/19/2012 10:26am Weight 150.00 lb Heart Rate 64 /min BP Systolic Sitting 120 mmHg BP Diastolic Sitting 72 mmHg Body Temperature 98.6 F 09/07/2012 10:43am Weight 149.00 lb Heart Rate 66 /min BP Systolic Sitting 140 mmHg BP Diastolic Sitting 84 mmHg Body Temperature 98.6 F 06/04/2012 9:23am Weight 151.00 lb Heart Rate 56 /min BP Systolic Sitting 120 mmHg BP Diastolic Sitting 68 mmHg 04/03/2012 10:00am Height 58.5 inches 4'10.50" Weight 150.50 lb Heart Rate 56 /min BP Systolic Sitting 120 mmHg right: 120/60 recheck by me 118/74 BP Diastolic Sitting 70 mmHg right: 120/60 recheck by me 118/74 BMI (Body Mass Index) 30.9 kg/m2 11/28/2011 10:15am Height 58.5 inches 4'10.50" Weight 153.00 lb Heart Rate 56 /min BP Systolic Sitting 128 mmHg BP Diastolic Sitting 74 mmHg O2 % BldC Oximetry 97 % BMI (Body Mass Index) 31.4 kg/m2 04/25/2011 11:44am Height 58.5 inches 4'10.50" Weight 159.00 lb Heart Rate 70 /min BP Systolic Sitting 118 mmHg BP Diastolic Sitting 64 mmHg BMI (Body Mass Index) 32.7 kg/m2 11/23/2010 9:47am Height 58.5 inches 4'10.50" Weight 164.00 lb Heart Rate 70 /min BP Systolic Sitting 130 mmHg BP Diastolic Sitting 82 mmHg BMI (Body Mass Index) 33.7 kg/m2 07/09/2010 8:34am Height 58.5 inches 4'10.50" Weight 167.00 lb Heart Rate 64 /min BP Systolic Sitting 110 mmHg BP Diastolic Sitting 78 mmHg O2 % BldC Oximetry 95 % BMI (Body Mass Index) 34.3 kg/m2 05/04/2010 2:19pm Weight 169.00 lb Heart Rate 58 /min BP Systolic 118 mmHg BP Diastolic 78 mmHg Body Temperature 98.3 F O2 % BldC Oximetry 97 % 04/27/2010 9:35am Weight 168.75 lb Heart Rate 68 /min BP Systolic 102 mmHg BP Diastolic 70 mmHg Body Temperature 98.5 F O2 % BldC Oximetry 92 % 04/19/2010 10:12am Heart Rate 85 /min BP Systolic 122 mmHg BP Diastolic 80 mmHg Respiratory Rate 20 /min Body Temperature 98.9 F O2 % BldC Oximetry 90 % 04/14/2010 11:16am Weight 171.00 lb Heart Rate 70 /min BP Systolic 124 mmHg BP Diastolic 86 mmHg Body Temperature 97.0 F O2 % BldC Oximetry 92 % 10/16/2009 10:59am Height 57 inches 4'9" Weight 171.75 lb Heart Rate 58 /min BP Systolic 115 mmHg BP Diastolic 70 mmHg BMI (Body Mass Index) 37.2 kg/m2 Results Test Date Facility Test Result H/L Range Note Urine Culture And 03/08/2018 [facility] Urine Culture SEE RESULT [address] [address] [phone] Laboratory test 03/08/2018 [facility] Hemoglobin A1c 5.4 % N 4.0-5.[address] (Glyco HGB) [place] [address] [phone] Urinalysis Profile 03/08/2018 [facility] Urine Color Straw [address] [place] [address] [phone] Urine Appearance Clear Urine Specific [place] 1.004 Low 1.010-1.030 Urine pH 7.0 N 5-9 Urine Urobilinogen Negative Negative Urine Ketones Negative Negative Urine Protein Negative Negative Urine Leukocytes Negative Negative Urine Blood 1+ Abnormal Negative Urine Nitrite Negative Negative Urine Bilirubin Negative Negative Urine Glucose Negative Negative Urine White Blood Cell Trace(0-5/hpf) Absent Urine Red Blood Cell Trace(0-2/hpf) Absent Urine Bacteria Absent Absent Urine Squamous Epithelial Cell Present Abnormal Absent Laboratory test 03/08/2018 [facility] [place] 0.93 N 0.6-1.[address] mmol/[place] [address] [phone] Manual 03/08/2018 [facility] Immature 7 % N 0-[address] [place] [address] [phone] Neutrophil % 88 % Band % 7 % N 0-8 Lymphocytes % 2 % Monocytes % 3 % RBC Morphology Normal Normal Abs Neutrophils 25.8 10^3/uL High 1.5-7.7 Abs Lymphocytes 0.6 10^3/uL Low 1.0-4.8 Abs Monocytes 0.8 10^3/uL N 0-0.8 CBC Auto 03/08/2018 [facility] White Blood 27.3 10^3/uL High 3.5-10.[address] [place] [address] [phone] Red Blood Count 4.14 10^6/uL N 4.00-5.40 Hemoglobin 12.5 g/dL N 12.0-16.0 Hematocrit 37 % N 35-47 Mean Corpuscular Volume 90 fL N 80-97 Mean Corpuscular Hemoglobin 30 pg N 27-31 Mean Corpuscular HGB Conc 34 g/dL N 31-36 Red Cell Distribution Width 15 % N 10.5-15 Platelet Count 351 10^3/uL N 150-450 Mean Platelet Volume 7.5 fL N 7.4-10.4 Laboratory 03/08/2018 [facility] Partial Thrombo 45.0 High 26.0-36.3 test finding [address] [place] [address] [phone] Inr/Protime 03/08/2018 [facility] Inr 0.91 N 0.77-1.[address] [place] [address] [phone] Laboratory 03/08/2018 [facility] Troponin-I (TnI) 0.01 ng/mL <0.04 3 test finding [address] [place] [address] [phone] Lipid Profile 03/08/2018 [facility] Triglycerides 57 mg/dL 4 (Trig/Chol/HDL [address] ) [place] [address] [phone] Cholesterol 165 mg/dL 5 HDL Cholesterol 87.5 mg/dL 6 LDL Cholesterol 66 mg/dL 7 Comp Metabolic Panel 03/08/2018 [facility] Sodium 139 mmol/L N 135-145 [address] [place] [address] [phone] Chloride 103 mmol/L N 101-111 Co2 Carbon Dioxide 29 mmol/L N 22-32 Glucose 135 mg/dL High 70-100 Blood Urea Nitrogen 25 mg/dL High 6-24 Creatinine 1.00 mg/dL High 0.51-0.95 BUN/Creatinine Ratio 25.0 High 8-20 Calcium 10.1 mg/dL N 8.6-10.3 Total Protein 6.8 g/dL N 6.4-8.9 Albumin 3.8 g/dL N 3.2-5.2 Globulin 3.0 g/dL N 2-4 Albumin/Globulin Ratio 1.3 N 1-3 Total Bilirubin 0.90 mg/dL N 0.2-1.0 Alkaline Phosphatase 97 U/L N 34-104 Alt 83 U/L High 7-52 Ast 86 U/L High 13-39 Egfr Non- 54.2 >60 Egfr 65.6 >60 8 Potassium 2.6 mmol/L Low 3.5-5.0 9 Anion Gap 7 mmol/L N 2-11 Laboratory test 03/08/2018 [facility] Lactic Acid 1.7 mmol/L N 0.5-2.0 10 finding [address] [place] [address] [phone] Arterial Blood 03/08/2018 [facility] O2 Device 3 LPM [place] Gas [address] [place] [address] [phone] Vent Mode Nasal Cannula PH Arterial 7.46 High 7.35-7.45 Pco2 Arterial 39 mmHg N 35-45 Po2 Arterial 98 mmHg N 80-100 O2 Saturation Arterial 99.1 % High 94.0-98.0 Base Excess Arterial 3.7 mmol/L High -2.0-2.0 11 Hco3 Arterial 27.8 mmol/L N 19-31 Laboratory test 03/05/2018 [facility] [place] 0.89 mmol/L N 0.6-1.[address] [place] [address] [phone] Laboratory test 03/05/2018 [facility] TSH (Thyroid 3.28 N 0.34 -5.[address] Stim Horm) mcIU/mL [place], [place] [id number] [phone] Vitamin B12 1174 pg/mL High 180-914 12 Comp Metabolic Panel 03/05/2018 [facility] Sodium 140 mmol/L N 135[address] [place] [address] [phone] Potassium 3.3 mmol/L Low 3.5-5.0 Chloride 105 mmol/L N 101-111 Co2 Carbon Dioxide 29 mmol/L N 22-32 Anion Gap 6 mmol/L N 2-11 Glucose 111 mg/dL High 70-100 Blood Urea Nitrogen 19 mg/dL N 6-24 Creatinine 0.87 mg/dL N 0.51-0.95 BUN/Creatinine Ratio 21.8 High 8-20 Calcium 10.3 mg/dL N 8.6-10.3 Total Protein 6.5 g/dL N 6.4-8.9 Albumin 4.1 g/dL N 3.2-5.2 Globulin 2.4 g/dL N 2-4 Albumin/Globulin Ratio 1.7 N 1-3 Total Bilirubin 0.50 mg/dL N 0.2-1.0 Alkaline Phosphatase 112 U/L High 34-104 Alt 79 U/L High 7-52 Ast 65 U/L High 13-39 Egfr Non- 63.6 >60 Egfr 77.0 >60 13 Lipid Profile 03/05/2018 [facility] Triglycerides 132 mg/dL 14 (Trig/Chol/HDL) [place] [address] [phone] Cholesterol 191 mg/dL 15 HDL Cholesterol 88.7 mg/dL 16 LDL Cholesterol 76 mg/dL 17 Urine Culture And 03/05/2018 [facility] Urine Culture SEE RESULT 18, [address] [place] [address] [phone] Urinalysis Profile 03/05/2018 [facility] [place] [address] [phone] Urine Appearance Clear Urine Specific [place] 1.008 Low 1.010-1.030 Urine pH 7.0 N 5-9 Urine Urobilinogen Negative Negative Urine Ketones Negative Negative Urine Protein Negative Negative Urine Leukocytes Trace Abnormal Negative Urine Blood Negative Negative * * Abnormal Negative 20 Urine Nitrite Negative Negative Urine Bilirubin Negative Negative Urine Glucose Negative Negative Urine White Blood Cell Trace(0-5/hpf) Absent Urine Red Blood Cell Absent Absent Urine Bacteria Absent Absent Urine Squamous Epithelial Cell Present Abnormal Absent Laboratory test 10/25/2017 [facility] Epifix 2X3 SEE RESULTS 21, [address] Mesh BELO <[place] [address] NOTE> [phone] Basic Metabolic 05/08/2017 [facility] Sodium 139 mmol/L N 133- [address] [place] [address] [phone] Potassium 4.0 mmol/L N 3.5-5.0 Chloride 107 mmol/L N 101-111 Co2 Carbon Dioxide 26 mmol/L N 22-32 Anion Gap 6 mmol/L N 2-11 Glucose 83 mg/dL N 70-100 Blood Urea Nitrogen 17 mg/dL N 6-24 Creatinine 0.79 mg/dL N 0.51-0.95 BUN/Creatinine Ratio 21.5 High 8-20 Calcium 9.9 mg/dL N 8.6-10.3 Egfr Non- 71.3 >60 Egfr 91.7 >60 23 Urinalysis Profile 03/24/2017 [facility] Urine Color Straw [address] [place] [address] [phone] Urine Appearance Clear Urine Specific [place] 1.004 Low 1.010-1.030 Urine pH 7.0 N 5-9 Urine Urobilinogen Negative Negative Urine Ketones Negative Negative Urine Protein Negative Negative Urine Leukocytes 1+ Abnormal Negative Urine Blood Negative Negative Urine Nitrite Negative Negative Urine Bilirubin Negative Negative Urine Glucose Negative Negative Urine White Blood Cell Trace(0-5/hpf) Absent Urine Red Blood Cell Absent Absent Urine Bacteria Absent Absent Urine Squamous Epithelial Cell Present Abnormal Absent Urine Culture And 03/24/2017 [facility] Urine Culture SEE RESULT [address] [place] [address] [phone] Basic Metabolic 03/24/2017 [facility] Sodium 142 mmol/L N 133- [address] [place] [address] [phone] Potassium 3.9 mmol/L N 3.5-5.0 Chloride 109 mmol/L N 101-111 Co2 Carbon Dioxide 29 mmol/L N 22-32 Anion Gap 4 mmol/L N 2-11 Glucose 80 mg/dL N 70-100 Blood Urea Nitrogen 16 mg/dL N 6-24 Creatinine 0.84 mg/dL N 0.51-0.95 BUN/Creatinine Ratio 19.0 N 8-20 Calcium 9.9 mg/dL N 8.6-10.3 Egfr Non- 66.5 >60 Egfr 85.5 >60 25 Lipid Profile 03/24/2017 [facility] Triglycerides 60 mg/dL 26 (Trig/Chol/HDL) [address] [place] [address] [phone] Cholesterol 188 mg/dL 27 HDL Cholesterol 93.0 mg/dL 28 LDL Cholesterol 83 mg/dL 29 Laboratory test 03/24/2017 [facility] TSH (Thyroid 5.62 High 0.34-5.[address] Stim Horm) mcIU/[place] [address] [phone] [place] 0.51 mmol/L Low 0.6-1.2 31 Comp Metabolic Panel 03/24/2017 [facility] Sodium 143 mmol/L N 133-[address] [place] [address] [phone] Potassium 3.9 mmol/L N 3.5-5.0 Chloride 108 mmol/L N 101-111 Co2 Carbon Dioxide 29 mmol/L N 22-32 Anion Gap 6 mmol/L N 2-11 Glucose 78 mg/dL N 70-100 Blood Urea Nitrogen 16 mg/dL N 6-24 Creatinine 0.85 mg/dL N 0.51-0.95 BUN/Creatinine Ratio 18.8 N 8-20 Calcium 10.0 mg/dL N 8.6-10.3 Total Protein 6.7 g/dL N 6.4-8.9 Albumin 4.1 g/dL N 3.2-5.2 Globulin 2.6 g/dL N 2-4 Albumin/Globulin Ratio 1.6 N 1-3 Total Bilirubin 0.60 mg/dL N 0.2-1.0 Alkaline Phosphatase 87 U/L N 34-104 Alt 27 U/L N 7-52 Ast 30 U/L N 13-39 Egfr Non- 65.6 >60 Egfr 84.3 >60 32 Inr/Protime 09/14/2016 [facility] Inr 0.90 N 0.89-1.[address] [place] [address] [phone] Laboratory test 09/14/2016 [facility] Partial 48.2 High 26.0- 36.[address] [place] [address] Time PTT [phone] PTT Mixing 09/14/2016 [facility] PTT/Normal 35.7 N 26.0-36.[address] [place] [address] [phone] PTT/After 1 HR Incubation 39.6 seconds High 26.0-36.3 PT/PTT Mixing Study Interp (SEE NOTE) N 33 Factor 8 09/14/2016 [facility] Coagulation Factor 153 % N 55 - [address] [place] [address] [phone] von Willebrand Factor Antigen 199 % N 55 - 200 35 VonWillibrand Factor Activity 172 % N 55 - 200 36 von Willebrand Panel Interp See Comment N 37 Lupus Anticoagulant 09/14/2016 [facility] Lac Aptt 43 sec Abnormal 26 - 36 [address] Mix 1:1 [place], [place] [id number] [phone] Lac DRVVT Mix Ratio 1.7 ratio Abnormal 0.0 - 1.1 39 Lup Hexthrombin Time (Bovine) 19 sec N 15 - 23 40 Platelet Neutralization 43 N 41 Platelet Neutraliz Buffer Cont 56 sec N 42 Dil [place]en Viper Jose Confirm 1.9 ratio Abnormal 0.0 - 1.1 43 Special Coagulation Interp Performed N 44 Prothrombin Time(Lac) 10.8 sec N 45 Lac Inr 1.0 N Lac Aptt 49 sec Abnormal 26 - 36 Lac DRVVT Screen Ratio 2.0 ratio Abnormal 0.0 - 1.1 Lupus Anticoagulant Interpreta See Comment N 46 Lupus Anticoagulant Review By Brandee Martinez <SEE NOTE> N 47 CBC Auto Diff 06/28/2016 [facility] White Blood 7.9 10^3/uL N 3.5-10.[address] [place] [address] [phone] Red Blood Count 4.14 10^6/uL N 4.0-5.4 Hemoglobin 12.8 g/dL N 12.0-16.0 Hematocrit 39 % N 35-47 Mean Corpuscular Volume 93 fL N 80-97 Mean Corpuscular Hemoglobin 31 pg N 27-31 Mean Corpuscular HGB Conc 33 g/dL N 31-36 Red Cell Distribution Width 14 % N 10.5-15 Platelet Count 381 10^3/uL N 150-450 Mean Platelet Volume 8 um3 N 7.4-10.4 Abs Neutrophils 5.7 10^3/uL N 1.5-7.7 Abs Lymphocytes 1.6 10^3/uL N 1.0-4.8 Abs Monocytes 0.4 10^3/uL N 0-0.8 Abs Eosinophils 0.1 10^3/uL N 0-0.6 Abs Basophils 0.1 10^3/uL N 0-0.2 Abs Nucleated RBC 0.01 10^3/uL N Granulocyte % 71.9 % N 38-83 Lymphocyte % 20.0 % Low 25-47 Monocyte % 5.5 % N 1-9 Eosinophil % 1.2 % N 0-6 Basophil % 1.4 % N 0-2 Nucleated Red Blood Cells % 0.1 N Iron & Iron Binding 06/28/2016 [facility] Iron 67 g/dL N 50- 212 [address]acity [address] [place] [address] [phone] Unsaturated Iron Binding 450 g/dL N Total Iron Binding Capacity 517 g/dL High 250-450 % Iron Saturation 13 % Low 15-55 Laboratory test 06/28/2016 [facility] Ferritin 14.8 ng/mL N 11 -[address] [place] [address] [phone] Inr/Protime 06/28/2016 [facility] Inr 0.89 N 0.89-1.[address] [place] [address] [phone] Laboratory test 06/28/2016 [facility] Partial 51.4 High 26.0- 36.3 finding [address] [place] [address] PTT [phone] [place] 0.50 mmol/L Low 0.6-1.2 Laboratory test 06/09/2016 [facility] [place] 0.55 mmol/L Low 0.6-1.[address] [place] [address] [phone] TSH (Thyroid Stim Horm) 1.34 mcIU/mL N 0.34-5.60 B-Type Natriuretic Peptide BNP 23 pg/mL N 48 Lactic Acid 1.0 mmol/L N 0.5-2.0 49 CKMB 06/09/2016 [facility] CKMB ng/mL 4.1 ng/mL N 0.6-6.[address] [place] [address] [phone] Urinalysis Profile 06/09/2016 [facility] Urine Color Yellow [address] [place] [address] [phone] Urine Appearance Cloudy N Urine Specific [place] 1.003 Low 1.010-1.030 Urine pH 6.0 N 5-9 Urine Urobilinogen Negative N Negative Urine Ketones Negative N Negative Urine Protein Negative N Negative Urine Leukocytes 3+ Abnormal Negative Urine Blood Negative N Negative Urine Nitrite Negative N Negative Urine Bilirubin Negative N Negative Urine Glucose Negative N Negative Urine White Blood Cell 2+(11-20/hpf) Abnormal Absent Urine Red Blood Cell 2+(6-10/hpf) Abnormal Absent Urine Bacteria Absent N Absent Urine Squamous Epithelial Cell Present Abnormal Absent Urine Culture And 06/09/2016 [facility] Urine Culture SEE RESULT [address] [place] [address] [phone] CBC Auto Diff 06/09/2016 [facility] White Blood 9.9 10^3/uL N 3.5-[address] Count 0.8 [place] [address] [phone] Red Blood Count 3.78 10^6/uL Low 4.0-5.4 Hemoglobin 11.8 g/dL Low 12.0-16.0 Hematocrit 35 % N 35-47 Mean Corpuscular Volume 93 fL N 80-97 Mean Corpuscular Hemoglobin 31 pg N 27-31 Mean Corpuscular HGB Conc 33 g/dL N 31-36 Red Cell Distribution Width 14 % N 10.5-15 Platelet Count 269 10^3/uL N 150-450 Mean Platelet Volume 7 um3 Low 7.4-10.4 Abs Neutrophils 8.8 10^3/uL High 1.5-7.7 Abs Lymphocytes 0.6 10^3/uL Low 1.0-4.8 Abs Monocytes 0.4 10^3/uL N 0-0.8 Abs Eosinophils 0.1 10^3/uL N 0-0.6 Abs Basophils 0.1 10^3/uL N 0-0.2 Abs Nucleated RBC 0 10^3/uL N Granulocyte % 88.7 % High 38-83 Lymphocyte % 5.8 % Low 25-47 Monocyte % 3.7 % N 1-9 Eosinophil % 1.2 % N 0-6 Basophil % 0.6 % N 0-2 Nucleated Red Blood Cells % 0 N Inr/Protime 06/09/2016 [facility] Inr 0.91 N 0.89-1.11 [address] [place] [address] [phone] Laboratory test 06/09/2016 [facility] Partial 45.7 High 26.0- 36.3 finding [address] [facility] [place] [address] PTT [phone] Laboratory test 06/09/2016 [facility] Magnesium 1.9 mg/dL N 1.9-2.7 finding [address] [place] [address] [phone] Lipase 19 U/L N 11.0-82.0 Creatine Kinase(CK) 100 U/L N 10-223 C Reactive Protein 11.49 mg/L High < 5.00 51 Troponin-I (TnI) 0.00 ng/mL N <0.04 52 Comp Metabolic Panel 06/09/2016 [facility] Sodium 136 mmol/L N 133-145 [address] [place] [address] [phone] Potassium 3.4 mmol/L Low 3.5-5.0 Chloride 106 mmol/L N 101-111 Co2 Carbon Dioxide 26 mmol/L N 22-32 Anion Gap 4 mmol/L N 2-11 Glucose 107 mg/dL High 70-100 Blood Urea Nitrogen 16 mg/dL N 6-24 Creatinine 0.79 mg/dL N 0.51-0.95 BUN/Creatinine Ratio 20.3 High 8-20 Calcium 9.5 mg/dL N 8.6-10.3 Total Protein 6.2 g/dL Low 6.4-8.9 Albumin 3.6 g/dL N 3.2-5.2 Globulin 2.6 g/dL N 2-4 Albumin/Globulin Ratio 1.4 N 1-3 Total Bilirubin 0.80 mg/dL N 0.2-1.0 Alkaline Phosphatase 89 U/L N 34-104 Alt 38 U/L N 7-52 Ast 42 U/L High 13-39 Egfr Non- 71.5 N >60 Egfr 92.0 N >60 53 Comp Metabolic Panel 04/30/2016 [facility] Albumin 3.9 g/dL N 3.2-5.2 [address] [place] [address] [phone] Total Bilirubin 0.60 mg/dL N 0.2-1.0 Sodium 138 mmol/L N 133-145 Potassium 4.1 mmol/L N 3.5-5.0 Chloride 105 mmol/L N 101-111 Co2 Carbon Dioxide 26 mmol/L N 22-32 Anion Gap 7 mmol/L N 2-11 Glucose 84 mg/dL N 70-100 Blood Urea Nitrogen 17 mg/dL N 6-24 Creatinine 0.83 mg/dL N 0.51-0.95 BUN/Creatinine Ratio 20.5 High 8-20 Calcium 9.7 mg/dL N 8.6-10.3 Total Protein 6.8 g/dL N 6.4-8.9 Globulin 2.9 g/dL N 2-4 Albumin/Globulin Ratio 1.3 N 1-3 Alkaline Phosphatase 82 U/L N 34-104 Alt 43 U/L N 7-52 Ast 37 U/L N 13-39 Egfr Non- 67.6 N >60 Egfr 86.9 N >60 54 Lipid Profile 04/07/2016 [facility] Triglycerides 95 mg/dL N 55 (Trig/Chol/HDL) [address] [place] [address] [phone] Cholesterol 161 mg/dL N 56 HDL Cholesterol 64.3 mg/dL N 57 LDL Cholesterol 78 mg/dL N 58 Comp Metabolic Panel 04/07/2016 [facility] Sodium 139 mmol/L N 133-145 [address] [place] [address] [phone] Potassium 3.7 mmol/L N 3.5-5.0 Chloride 105 mmol/L N 101-111 Co2 Carbon Dioxide 28 mmol/L N 22-32 Anion Gap 6 mmol/L N 2-11 Glucose 92 mg/dL N 70-100 Blood Urea Nitrogen 12 mg/dL N 6-24 Creatinine 0.75 mg/dL N 0.51-0.95 BUN/Creatinine Ratio 16.0 N 8-20 Calcium 9.6 mg/dL N 8.6-10.3 Total Protein 6.7 g/dL N 6.4-8.9 Albumin 3.8 g/dL N 3.2-5.2 Globulin 2.9 g/dL N 2-4 Albumin/Globulin Ratio 1.3 N 1-3 Total Bilirubin 0.60 mg/dL N 0.2-1.0 Alkaline Phosphatase 130 U/L High 34-104 Alt 68 U/L High 7-52 Ast 35 U/L N 13-39 Egfr Non- 76.0 N >60 Egfr 97.7 N >60 59 Laboratory test 01/23/2016 [facility] [place] 0.50 mmol/L Low 0.6-1.2 [address] [place] [address] [phone] TSH (Thyroid Stim Horm) 2.24 mcIU/mL N 0.34-5.60 61 Urinalysis Profile 01/23/2016 [facility] Urine Color Colorless N [address] [place] [address] [phone] Urine Appearance Clear N Urine Specific [place] 1.003 Low 1.010-1.030 Urine pH 7.0 N 5-9 Urine Urobilinogen Negative N Negative Urine Ketones Negative N Negative Urine Protein Negative N Negative Urine Leukocytes Negative N Negative Urine Blood Negative N Negative Urine Nitrite Negative N Negative Urine Bilirubin Negative N Negative Urine Glucose Negative N Negative Laboratory test 11/18/2015 [facility] Blood Urea 16 mg/dL N 6- [address] [place] [address] [phone] Creatinine 11/18/2015 [facility] Creatinine 0.80 mg/dL N 0.51- 0.[address] [place] [address] [phone] Egfr Non- 70.5 N >60 Egfr 90.7 N >60 62 Lipid Profile 07/08/2015 [facility] Triglycerides 87 mg/dL N 63 (Trig/Chol/HDL) [address] [place] [address] [phone] Cholesterol 174 mg/dL N 64 HDL Cholesterol 71.5 mg/dL N 65 LDL Cholesterol 85 mg/dL N 66 Comp Metabolic Panel 07/08/2015 [facility] Sodium 141 mmol/L N 133-145 [address] [place] [address] [phone] Potassium 4.1 mmol/L N 3.5-5.0 Chloride 108 mmol/L N 101-111 Co2 Carbon Dioxide 28 mmol/L N 22-32 Anion Gap 5 mmol/L N 2-11 Glucose 88 mg/dL N 70-100 Blood Urea Nitrogen 15 mg/dL N 6-24 Creatinine 0.78 mg/dL N 0.51-0.95 BUN/Creatinine Ratio 19.2 N 8-20 Calcium 9.9 mg/dL N 8.6-10.3 Total Protein 6.5 g/dL N 6.4-8.9 Albumin 4.0 g/dL N 3.2-5.2 Globulin 2.5 g/dL N 2-4 Albumin/Globulin Ratio 1.6 N 1-3 Total Bilirubin 0.70 mg/dL N 0.2-1.0 Alkaline Phosphatase 76 U/L N 34-104 Alt 32 U/L N 7-52 Ast 28 U/L N 13-39 Egfr Non- 72.8 N >60 Egfr 93.6 N >60 67 Laboratory test 07/08/2015 [facility] [place] 0.53 mmol/L Low 0.6-1.2 68 finding [address] [place] [address] [phone] CBC No Diff 07/08/2015 [facility] White Blood 7.8 10^3/uL N 3.5-10.8 [address] [facility] [place] [address] [phone] Red Blood Count 4.21 10^6/uL N 4.0-5.4 Hemoglobin 13.3 g/dL N 12.0-16.0 Hematocrit 40 % N 35-47 Mean Corpuscular Volume 94 fL N 80-97 Mean Corpuscular Hemoglobin 32 pg High 27-31 Mean Corpuscular HGB Conc 34 g/dL N 31-36 Red Cell Distribution Width 14 % N 10.5-15 Platelet Count 299 10^3/uL N 150-450 Mean Platelet Volume 8 um3 N 7.4-10.4 Laboratory test 07/08/2015 [facility] Alpha 1 125 mg/dL N 100 - [address] Antitrypsin A1a [address] [place] [address] [phone] Urinalysis 07/08/2015 [facility] Urine Color Straw N Profile [address] [place] [address] [phone] Urine Appearance Clear N Urine Specific [place] 1.003 Low 1.010-1.030 Urine pH 7.0 N 5-9 Urine Urobilinogen Negative N Negative Urine Ketones Negative N Negative Urine Protein Negative N Negative Urine Leukocytes Negative N Negative Urine Blood 2+ Abnormal Negative Urine Nitrite Negative N Negative Urine Bilirubin Negative N Negative Urine Glucose Negative N Negative Urine White Blood Cell Absent N Absent Urine Red Blood Cell 2+(6-10/hpf) Abnormal Absent Urine Bacteria Absent N Absent Urine Squamous Epithelial Cell Present Abnormal Absent CBC No Diff 04/09/2015 [facility] White Blood 10.2 10^3/uL N 3.5-10.[address] [place] [address] [phone] Red Blood Count 3.90 10^6/uL Low 4.0-5.4 Hemoglobin 12.3 g/dL N 12.0-16.0 Hematocrit 36 % N 35-47 Mean Corpuscular Volume 93 fL N 80-97 Mean Corpuscular Hemoglobin 32 pg High 27-31 Mean Corpuscular HGB Conc 34 g/dL N 31-36 Red Cell Distribution Width 14 % N 10.5-15 Platelet Count 379 10^3/uL N 150-450 Mean Platelet Volume 8 um3 N 7.4-10.4 Urinalysis Profile 10/20/2014 [facility] Urine Color Straw N [address] [place] [address] [phone] Urine Appearance Clear N Urine Specific [place] 1.004 Low 1.010-1.030 Urine pH 7.0 N 5-9 Urine Urobilinogen Negative N Negative Urine Ketones Negative N Negative Urine Protein Negative N Negative Urine Leukocytes Negative N Negative Urine Blood Negative N Negative Urine Nitrite Negative N Negative Urine Bilirubin Negative N Negative Urine Glucose Negative N Negative Ua Routine 07/09/2014 [facility] Ua Specific [place] 1.000 Ua PH 6.0 Ua Color yellow Ua Appera clear Ua WBC neg Ua Protein neg Ua Glucose neg Ua Ketones neg Ua Bilirubin neg Ua Urobilinogen normal Ua Nitrite neg Ua Occult Blood neg Urine Culture And 06/24/2014 [facility] Urine Culture (SEE NOTE ) 70 Sensitivities [address] [place] [address] [phone] Lipid Profile 06/24/2014 [facility] Triglycerides 91 mg/dL N 71 (Trig/Chol/HDL) [address] [place] [address] [phone] Cholesterol 171 mg/dL N 72 HDL Cholesterol 62.6 mg/dL N 73 LDL Cholesterol 90 mg/dL N 74 Comp Metabolic Panel 06/24/2014 [facility] Sodium 140 mmol/L N 133-145 [address] [place] [address] [phone] Potassium 4.1 mmol/L N 3.5-5.0 Chloride 108 mmol/L N 101-111 Co2 Carbon Dioxide 28 mmol/L N 22-32 Anion Gap 4 mmol/L N 2-11 Glucose 90 mg/dL N 70-100 Blood Urea Nitrogen 14 mg/dL N 6-24 Creatinine 0.86 mg/dL N 0.51-0.95 BUN/Creatinine Ratio 16.3 N 8-20 Calcium 10.0 mg/dL N 8.6-10.3 Total Protein 7.1 g/dL N 6.4-8.9 Albumin 4.4 g/dL N 3.2-5.2 Globulin 2.7 g/dL N 2-4 Albumin/Globulin Ratio 1.6 N 1-3 Total Bilirubin 0.60 mg/dL N 0.2-1.0 Alkaline Phosphatase 90 U/L N 34-104 Alt 23 U/L N 7-52 Ast 32 U/L N 13-39 Egfr Non- 65.2 N >60 Egfr 83.9 N >60 75 Laboratory test 06/24/2014 [facility] [place] 0.47 mmol/L Low 0.6-1.2 finding [address] [place] [address] [phone] TSH (Thyroid Stimulating Horm) 2.63 IU/mL N 0.34-5.60 CBC Auto Diff 06/24/2014 [facility] White Blood 9.7 10^3/uL N 4.8-10.[address] [place] [address] [phone] Red Blood Count 4.44 10^6/uL N 4.0-5.4 Hemoglobin 14.2 g/dL N 12.0-16.0 Hematocrit 41 % N 35-47 Mean Corpuscular Volume 93 fL N 80-97 Mean Corpuscular Hemoglobin 32 pg High 27-31 Mean Corpuscular HGB Conc 35 g/dL N 31-36 Red Cell Distribution Width 14 % N 10.5-15 Platelet Count 307 10^3/uL N 150-450 Mean Platelet Volume 8 um3 N 7.4-10.4 Abs Neutrophils 7.9 10^3/uL High 1.5-7.7 Abs Lymphocytes 1.0 10^3/uL N 1.0-4.8 Abs Monocytes 0.4 10^3/uL N 0-0.8 Abs Eosinophils 0.2 10^3/uL N 0-0.6 Abs Basophils 0.1 10^3/uL N 0-0.2 Abs Nucleated RBC 0.01 10^3/uL N Granulocyte % 82.2 % N 38-83 Lymphocyte % 10.5 % Low 25-47 Monocyte % 4.0 % N 1-9 Eosinophil % 2.6 % N 0-6 Basophil % 0.7 % N 0-2 Nucleated Red Blood Cells % 0.1 N Urinalysis Profile 06/24/2014 [facility] Urine Color Straw N [address] [place] [address] [phone] Urine Appearance Clear N Urine Specific [place] 1.003 Low 1.010-1.030 Urine pH 7.0 N 5-9 Urine Urobilinogen Negative N Negative Urine Ketones Negative N Negative Urine Protein Negative N Negative Urine Leukocytes Trace Abnormal Negative Urine Blood Negative N Negative Urine Nitrite Negative N Negative Urine Bilirubin Negative N Negative Urine Glucose Negative N Negative Urine White Blood Cell Trace(0-5/hpf) N Absent Urine Red Blood Cell 2+(6-10/hpf) Abnormal Absent Urine Bacteria Absent N Absent Urine Squamous Epithelial Cell Present Abnormal Absent Comp Metabolic Panel 01/27/2014 [facility] Sodium 140 mmol/L N 133-[address] [place] [address] [phone] Potassium 4.2 mmol/L N 3.5-5.0 Chloride 107 mmol/L N 101-111 Co2 Carbon Dioxide 30 mmol/L N 22-32 Anion Gap 3 mmol/L N 2-11 Glucose 86 mg/dL N 70-100 Blood Urea Nitrogen 11 mg/dL N 6-24 Creatinine 0.81 mg/dL N 0.51-0.95 BUN/Creatinine Ratio 13.6 N 8-20 Calcium 9.6 mg/dL N 8.6-10.3 Total Protein 7.0 g/dL N 6.4-8.9 Albumin 3.9 g/dL N 3.2-5.2 Globulin 3.1 g/dL N 2-4 Albumin/Globulin Ratio 1.3 N 1-3 Total Bilirubin 0.40 mg/dL N 0.2-1.0 Alkaline Phosphatase 130 U/L High 34-104 Alt 39 U/L N 7-52 Ast 25 U/L N 13-39 Egfr Non- 69.9 N >60 Egfr 89.9 N >60 76 Urine Culture And Sensitivities 01/20/2014 Urine Culture (SEE NOTE) 77 Urinalysis Profile 01/20/2014 Urine Color Straw N Urine Appearance Clear N Urine Specific [place] 1.005 Low 1.010-1.030 Urine pH 7.0 N 5-9 Urine Urobilinogen Negative N Negative Urine Ketones Negative N Negative Urine Protein Negative N Negative Urine Leukocytes 2+ Abnormal Negative Urine Blood 1+ Abnormal Negative Urine Nitrite Negative N Negative Urine Bilirubin Negative N Negative Urine Glucose Negative N Negative Urine White Blood Cell 1+(6-10/hpf) Abnormal Absent Urine Red Blood Cell Trace N Absent Urine Bacteria Absent N Absent Urine Squamous Epithelial Cell Present Abnormal Absent Comp Metabolic Panel 01/20/2014 Sodium 137 mmol/L N 133-145 Potassium 3.9 mmol/L N 3.5-5.0 78 Chloride 104 mmol/L N 101-111 Co2 Carbon Dioxide 25 mmol/L N 22-32 Anion Gap 8 mmol/L N 2-11 Glucose 138 mg/dL High 70-100 Blood Urea Nitrogen 10 mg/dL N 6-24 Creatinine 0.83 mg/dL N 0.51-0.95 BUN/Creatinine Ratio 12.0 N 8-20 Calcium 9.5 mg/dL N 8.6-10.3 Total Protein 6.7 g/dL N 6.4-8.9 Albumin 4.0 g/dL N 3.2-5.2 Globulin 2.7 g/dL N 2-4 Albumin/Globulin Ratio 1.5 N 1-3 Total Bilirubin 1.10 mg/dL High 0.2-1.0 Alkaline Phosphatase 110 U/L High 34-104 Alt 76 U/L High 7-52 Ast 72 U/L High 13-39 Egfr Non- 68.0 N >60 Egfr 87.4 N >60 79 Laboratory test finding 01/20/2014 Blood Culture (SEE NOTE) 80 CBC Auto Diff 01/20/2014 White Blood Count 18.5 10^3/uL High 4.8-10.8 Red Blood Count 4.16 10^6/uL N 4.0-5.4 Hemoglobin 12.7 g/dL N 12.0-16.0 Hematocrit 38 % N 35-47 Mean Corpuscular Volume 91 fL N 80-97 Mean Corpuscular Hemoglobin 31 pg N 27-31 Mean Corpuscular HGB Conc 34 g/dL N 31-36 Red Cell Distribution Width 15 % N 10.5-15 Platelet Count 342 10^3/uL N 150-450 Mean Platelet Volume 8 um3 N 7.4-10.4 Abs Neutrophils 16.3 10^3/uL High 1.5-7.7 Abs Lymphocytes 1.1 10^3/uL N 1.0-4.8 Abs Monocytes 0.7 10^3/uL N 0-0.8 Abs Eosinophils 0.3 10^3/uL N 0-0.6 Abs Basophils 0.1 10^3/uL N 0-0.2 Abs Nucleated RBC 0.01 10^3/uL N Granulocyte % 88.1 % High 38-83 Lymphocyte % 6.2 % Low 25-47 Monocyte % 3.7 % N 1-9 Eosinophil % 1.5 % N 0-6 Basophil % 0.5 % N 0-2 Nucleated Red Blood Cells % 0 N Urinalysis Profile 07/11/2013 [facility] Urine Color Yellow N [address] [place] [address] [phone] Urine Appearance Clear N Urine Specific [place] 1.006 Low 1.010-1.030 Urine Esterase Negative N Negative Urine Nitrate Negative N Negative Urine Urobilinogen Negative E.U./dL N Negative Urine Protein Negative mg/dL N Negative Urine pH 7.0 N 5-9 Urine Blood Negative N Negative Urine Ketones Negative mg/dL N Negative Urine Bilirubin Negative N Negative Urine Glucose Negative mg/dL N Negative Lipid Profile 07/10/2013 [facility] Triglycerides 87 mg/dL N 82, 83 (Trig/Chol/HDL) [address] [place] [address] [phone] Cholesterol 154 mg/dL N 84 HDL Cholesterol 56.3 mg/dL N 85 LDL Cholesterol 80 mg/dL N 86 Comp Metabolic Panel 07/10/2013 [facility] Sodium 139 mmol/L N 133-[address] [place] [address] [phone] Potassium 3.8 mmol/L N 3.7-5.6 Chloride 108 mmol/L N 101-111 Co2 Carbon Dioxide 27 mmol/L N 22-32 Anion Gap 4 mmol/L N 2-11 Glucose 90 mg/dL N 70-100 Blood Urea Nitrogen 14 mg/dL N 6-24 Creatinine 0.81 mg/dL N 0.51-0.95 BUN/Creatinine Ratio 17.3 N 8-20 Calcium 9.7 mg/dL N 8.6-10.3 Total Protein 7.2 g/dL N 6.4-8.9 Albumin 4.3 g/dL N 3.2-5.2 Globulin 2.9 g/dL N 2-4 Albumin/Globulin Ratio 1.5 N 1-3 Total Bilirubin 0.60 mg/dL N 0.2-1.0 Alkaline Phosphatase 84 U/L N 34-104 Alt 21 U/L N 7-52 Ast 23 U/L N 13-39 Egfr Non- 70.1 N >60 Egfr 90.2 N >60 87 Laboratory test 07/10/2013 [facility] [place] 0.75 mmol/L N 0.6-1.[address] [place] [address] [phone] TSH (Thyroid Stimulating Horm) 0.76 IU/mL N 0.34-5.60 88 CBC Auto Diff 07/10/2013 [facility] White Blood 9.2 10^3/uL N 4.8-10.[address] [place] [address] [phone] Red Blood Count 4.20 10^6/uL N 4.0-5.4 Hemoglobin 12.9 g/dL N 12.0-16.0 Hematocrit 38 % N 35-47 Mean Corpuscular Volume 91 fL N 80-97 Mean Corpuscular Hemoglobin 31 pg N 27-31 Mean Corpuscular HGB Conc 34 g/dL N 31-36 Red Cell Distribution Width 13 % N 10.5-15 Platelet Count 329 10^3/uL N 150-450 Mean Platelet Volume 8 um3 N 7.4-10.4 Abs Neutrophils 7.4 10^3/uL N 1.5-7.7 Abs Lymphocytes 1.1 10^3/uL N 1.0-4.8 Abs Monocytes 0.4 10^3/uL N 0-0.8 Abs Eosinophils 0.2 10^3/uL N 0-0.6 Abs Basophils 0.1 10^3/uL N 0-0.2 Abs Nucleated RBC 0 10^3/uL N Granulocyte % 80.6 % N 38-83 Lymphocyte % 12.0 % Low 25-47 Monocyte % 4.6 % N 1-9 Eosinophil % 2.2 % N 0-6 Basophil % 0.6 % N 0-2 Nucleated Red Blood Cells % 0 N Hepatitis B 07/10/2013 [facility] Hepatitis B Nonreactive N Nonreactive [place] AB Titer [address] [place] [address] [phone] Hep B Surf AB Index 0.13 N 89 Laboratory 07/10/2013 [facility] Hepatitis C Nonreactive N Nonreactive test finding [address] [place] [address] [phone] Hepatitis B Core Total Ab Negative N Negative 90 CBC Auto Diff 12/28/2012 [facility] White Blood 8.3 10^3/uL 4.8-10.[address] Count [place], [place] [address] [phone] Red Blood Count 4.50 10^6/uL 4.0-5.4 Hemoglobin [...] Red Blood Cells % 0.1 Laboratory test 12/28/2012 [facility] TSH (Thyroid 1.00 0.34- 5.60 finding [address] [facility] [facility] Stimulating miu/[place] [address] [facility]) [phone] Urinalysis 12/28/2012 [facility] Urine Color Yellow W/Microscopic [address] [place] [address] [phone] Urine Appearance Clear Urine Specific [place] 1.008 Low 1.010-1.030 Urine Esterase Trace Abnormal Negative Urine Nitrate Negative Negative Urine Urobilinogen [...] Urine None Seen None Seen Lipid Profile 12/28/2012 [facility] Triglycerides 100 mg/dL 40-200 (Trig/Chol/HDL) [address] [place] [address] [phone] Cholesterol 193 mg/dL Less than 200 HDL Cholesterol 65 mg/dL High 40-60 91 Cholesterol/HDL Ratio 3.0 Average 1-4.44 LDL Cholesterol 108.0 High Less Than 100 92 Laboratory test 12/28/2012 [facility] [place] 0.6 mmol/L 0.5- 1.5 finding [address] [place] [address] [phone] Comp Metabolic Panel 12/28/2012 [facility] Sodium 141 mmol/L 133-145 [address] [place] [address] [phone] Potassium 4.4 mmol/L 3.5-5.0 Chloride 108 mmol/L [...] Egfr Non- 62.1 >60 Egfr 79.8 >60 93 Laboratory test 05/30/2012 [facility] Varicella-Zoster IgG Positive [address] [place] [address] [phone] Iron & Iron 05/30/2012 [facility] Iron 75 g/dL 28-[address] [place] [address] [phone] Unsaturated Iron Binding 407 g/dL Total Iron Binding Capacity 482 g/dL High 250-450 % Iron Saturation 16 % 15-55 CBC Auto Diff 05/30/2012 [facility] White Blood 8.3 10^3/uL 4.8-10.[address] [place] [address] [phone] Red Blood Count 4.26 10^6/uL 4.0-5.4 Hemoglobin [...] Red Blood Cells % 0.1 Laboratory test 05/30/2012 [facility] Ferritin 23 ng/mL 11- 307 [address] [place] [address] [phone] Basic Metabolic 05/30/2012 [facility] Sodium 142 mmol/L 133- [address] [place] [address] [phone] Potassium 4.5 mmol/L 3.5-5.0 Chloride 109 mmol/L 101-111 Co2 Carbon Dioxide 28.0 mmol/L 22-32 Anion Gap 5.0 mmol/L 2-11 Glucose 98 mg/dL 70-100 Blood Urea Nitrogen 15 mg/dL 6-24 Creatinine 0.70 mg/dL 0.50-1.40 BUN/Creatinine Ratio 21.4 High 8-20 Calcium 10.2 mg/dL High 8.1-9.9 Egfr Non- 83.2 >60 Egfr 107.0 >60 96 Laboratory test 05/30/2012 [facility] [place] 0.7 mmol/L 0.5- 1.[address] [place] [address] [phone] TSH (Thyroid Stimulating Horm) 0.54 miu/mL 0.34-5.60 97 Vitamin D, 25 05/30/2012 [facility] 25-Hydroxy Vitamin <4.0 ng/ mL Hydroxy [address] [place] [address] [phone] 25-Hydroxy Vitamin D3 42 ng/mL 25-Hydroxy Vitamin D Total 42 ng/mL 98 CBC Auto Diff 11/21/2011 [facility] White Blood 6.1 10^3/uL 4.8-10.[address] [place] [address] [phone] Red Blood Count 4.22 10^6/uL 4.0-5.4 Hemoglobin [...] Red Blood Cells % 0 Laboratory test 11/21/2011 [facility] TSH (Thyroid 0.57 0.34- 5.[address] Stimulating MIU/[place] [address] Horm) [phone] Hemoglobin A1c 5.3 % Less than 6.0 99 [place] 0.6 mmol/L 0.5-1.5 Comp Metabolic Panel 11/21/2011 [facility] Sodium 142 mmol/L 133-[address] [place], [place] [id number] [phone] Potassium 4.4 mmol/L 3.5-5.0 Chloride 108 mmol/L 101-111 Co2 Carbon Dioxide 29.0 mmol/L 22-32 Anion Gap 5.0 mmol/L 2-11 Glucose 98 mg/dL 70-100 Blood Urea Nitrogen 9 mg/dL 6-24 Creatinine 0.80 mg/dL 0.50-1.40 BUN/Creatinine Ratio 11.3 8-20 Calcium 9.9 mg/dL 8.1-9.9 Total Protein 6.5 GM/DL 6.2-8.1 Albumin 4.1 GM/DL 3.2-5.2 Globulin 2.4 GM/DL 2-4 Albumin/Globulin Ratio 1.7 1-3 Total Bilirubin 0.7 mg/dL 0.1-1.0 100 Alkaline Phosphatase 94 U/L 30-110 Alt 36 U/L 14-54 Ast 33 U/L 12-42 Egfr Non- 71.3 >60 Egfr 91.7 >60 101 Laboratory test 11/21/2011 [facility] Ferritin 30 NG/ML 11- [address] [place] [address] [phone] Lipid Profile 11/21/2011 [facility] Triglycerides 137 mg/dL 40-200 (Trig/Chol/HDL) [address] [place] [address] [phone] Cholesterol 190 mg/dL Less than 200 102 HDL Cholesterol 59 mg/dL 40-60 103 Cholesterol/HDL Ratio 3.2 AVERAGE 1-4.44 LDL Cholesterol 103.6 mg/dL High Less Than 100 CBC Auto Diff 07/27/2011 [facility] White Blood 7.0 CUMM 4.8- 10.[address] [place] [address] [phone] Red Cell Count 4.09 CUMM Low 4.2-5.4 [...] Eosinophils 0.3 0-0.6 Abs Basophils 0 0-0.2 104 Laboratory test 07/27/2011 [facility] Ferritin 28 NG/ML 11.0- [address] [place] [address] [phone] Iron & Iron 07/27/2011 [facility] Iron Total 97 g/dL 28- [address] [place] [address] [phone] Total Iron Binding Capacity 421 g/dL 250-450 [...] Eosinophils 0.2 0-0.6 Abs Basophils 0 0-0.2 105 Laboratory test 04/01/2011 Ferritin < 10 NG/ML Low 11.0-307 finding Surgical 03/22/2011 [facility] Surgical [address] Pathology ----- <[place] [address] NOTE> [phone] Comp Metabolic 11/10/2010 [facility] Sodium 143 mmol/L 135- [address] [place] [address] [phone] Potassium 4.5 mmol/L 3.5-5.0 Chloride 108 mmol/L 101-111 Co2 (Carbon Dioxide) 31.0 mmol/L 22-32 Anion Gap 4.0 mmol/L 2-11 107 Glucose 113 mg/dL High 70-100 BUN 12 mg/dL 6-24 Creatinine 0.8 mg/dL 0.50-1.40 One Over Creatinine 1.25 BUN/Creatinine Ratio 15.0 8-20 Calcium 10.1 mg/dL High 8.1-9.9 Total Protein 7.0 GM/DL 6.2-8.1 Albumin 4.1 GM/DL 3.2-5.2 Globulin 2.9 GM/DL 2-4 Albumin/Globulin Ratio 1.4 1-3 Bilirubin Total 0.8 mg/dL 0.4-1.5 108 Alkaline Phosphatase 93 U/L 30-110 Alt (SGPT) 22 U/L 14-54 Ast (Sgot) 25 U/L 12-42 eGFR Non- 71.5 > 60 eGFR 92.0 > 60 109 CBC Auto Diff 11/10/2010 [facility] White Blood 7.8 CUMM 4.8- 10.[address] [place] [address] [phone] Red Cell Count 4.19 CUMM Low 4.2-5.4 [...] Eosinophils 0.2 0-0.6 Abs Basophils 0 0-0.2 110 Lipid Profile 11/10/2010 [facility] Triglyceride 115 mg/dL 40 -200 (Trig/Chol/HDL) [address] [place] [address] [phone] Cholesterol 179 mg/dL Less Than 200 111 High Density Lipoprotein 60 mg/dL 40-60 112 Cholesterol/HDL Ratio 2.98 AVERAGE 1-4.44 Low Density Lipoprotein 96 mg/dL Less Than 100 113 Laboratory test 11/10/2010 [facility] TSH 0.77 MIU/ML 0.34- 5.60 finding [address] [place] [address] [phone] [place] 0.8 mmol/L 0.5-1.5 Urinalysis W/Microscopic 11/10/2010 [facility] Ua Color YELLOW Yellow [address] [place] [address] [phone] Appearance-Urine CLEAR Clear Specific [place]-Ur 1.004 Low 1.010-1.030 Esterase-Urine TRACE Abnormal Negative Nitrite NEGATIVE Negative Usqodcxracfi-Wm-QWT NEGATIVE Negative Protein-Urine NEGATIVE Negative PH-Urine 7.5 5-9 Blood-Urine NEGATIVE Negative Ketones-Urine NEGATIVE Negative Bilirubin-Ur NEGATIVE Negative Glucose-Urine NEGATIVE Negative WBC-Urine 0-2 0-5 RBC-Urine 0-2 0-2 Epith Cells-Ur MANY None Liver Function 01/07/2010 [facility] Total Protein 6.5 GM/DL 6.2-8.1 Panel [address] [place] [address] [phone] Albumin 4.1 GM/DL 3.2-5.2 Globulin 2.4 GM/DL 2-4 Albumin/Globulin Ratio 1.7 1-3 Bilirubin Total 0.7 mg/dL 0.4-1.5 114 Bilirubin Direct 0.1 mg/dL 0.1-0.5 Indirect Bilirubin 0.6 mg/dL 0.3-1.0 115 Alkaline Phosphatase 90 U/L 30-110 Alt (SGPT) 22 U/L 14-54 Ast (Sgot) 25 U/L 12-42 Lipid Profile 12/04/2009 [facility] Triglyceride 129 mg/dL 40 -200 (Trig/Chol/HDL) [address] [place] [address] [phone] Cholesterol 184 mg/dL Less Than 200 116 High Density Lipoprotein 59 mg/dL 40-60 117 Cholesterol/HDL Ratio 3.12 AVERAGE 1-4.44 Low Density Lipoprotein 99 mg/dL Less Than 100 118 Laboratory test finding 12/04/2009 [facility] Alt (SGPT) 20 U/L 14-54 [address] [place] [address] [phone] Ast (Sgot) 54 U/L High 12-42 Comp Metabolic Panel 10/21/2009 [facility] Sodium 142 mmol/L 135-145 [address] [place], [place] [address] [phone] Potassium 4.7 mmol/L 3.5-5.0 Chloride 106 mmol/L 101-111 Co2 (Carbon Dioxide) 30.0 mmol/L 22-32 Anion Gap 6.0 mmol/L 2-11 119 Glucose 94 mg/dL 70-100 120 BUN 14 mg/dL 6-24 Creatinine 0.90 mg/dL 0.50-1.40 One Over Creatinine 1.10 BUN/Creatinine Ratio 15.6 8-20 Calcium 9.9 mg/dL 8.1-9.9 121 Total Protein 6.9 GM/DL 6.2-8.1 Albumin 4.0 GM/DL 3.2-5.2 Globulin 2.9 GM/DL 2-4 Albumin/Globulin Ratio 1.4 1-3 Bilirubin Total 0.7 mg/dL 0.4-1.5 122 Alkaline Phosphatase 85 U/L 30-110 Alt (SGPT) 28 U/L 14-54 Ast (Sgot) 27 U/L 12-42 eGFR Non- 66.6 > 60 eGFR 80.6 > 60 123 Lipid Profile 10/21/2009 [facility] Triglyceride 109 mg/dL 40 -200 (Trig/Chol/HDL) [address] [place] [address] [phone] Cholesterol 205 mg/dL High Less Than 200 124 High Density Lipoprotein 47 mg/dL 40-60 125 Cholesterol/HDL Ratio 4.36 AVERAGE 1-4.44 Low Density Lipoprotein 136 mg/dL High Less Than 100 126 Laboratory test 10/21/2009 [facility] TSH 1.09 MIU/ML 0.34- 5.60 finding [address] [place] [address] [phone] [place] 0.8 mmol/L 0.5-1.5 Urinalysis W/Microscopic 10/16/2009 [facility] Ua Color YELLOW Yellow [address] [place] [address] [phone] Appearance-Urine CLEAR Clear Specific [place]-Ur 1.005 Low 1.010-1.030 Esterase-Urine 1+ Abnormal Negative Nitrite NEGATIVE Negative Anbeqvwkyhgv-Bo-MYI NEGATIVE Negative Protein-Urine NEGATIVE Negative PH-Urine 6.5 5-9 Blood-Urine NEGATIVE Negative Ketones-Urine NEGATIVE Negative Bilirubin-Ur NEGATIVE Negative Glucose-Urine NEGATIVE Negative WBC-Urine 5-10 Abnormal 0-5 RBC-Urine 0-5 0-2 Epith Cells-Ur RARE None Bacteria-Urine TRACE None Amorphous Sed-U TRACE None Urine Culture & 10/16/2009 [facility] Urine Culture NG [address] [place] [address] [phone] 1 SEE RESULT BELOW Name: KOKICRISTHIANCARLENE : [address]: Stewart Jung MD Acct: [id number] Unit: [id number] AGE: 72 Location: [place] [address] Re03/08/18 SEX: F Status: ADM IN SPEC: [id number] JOAQUINA: 03/08/[address] [facility] [address]: Stef Peña MD REQ: [id number] RECD: 03/08/18 STATUS: TANG METCALF DR: Elif Luevano MD _ SOURCE: URINE SPDESC: ORDERED: Urine Culture Procedure Result Reported Site Urine Culture Final 03/09/18- 1208 ML No growth of clinically significant organisms * ML - Main Lab . END OF REPORT DEPARTMENT OF PATHOLOGY, [address] [place] [address] Jimbo Pratt M.D. Director [facility] # [id number] 2 Therapeutic target for the treatment of diabetes mellitus patients is <7% HBA1C, and in selective patients <6.0%. Please refer to [place] [employer] diabetic care guidelines for further information. 3 Troponin-I testing on Plasma Separator Tubes (PST) has a known false positive rate of 0.20-0.40%. All positive troponins reflex immediate secondary confirmatory testing. 4 Desirable: <150 Borderline High: 150-199 High: 200-499 Very High: >500 5 Desirable: <200 Borderline High: 200-239 High: >239 6 Low: <40 Desirable: 40-60 High: >60 7 Desirable: <100 Near Optimal: 100-129 Borderline High: 130-159 High: 160-189 Very High: >189 8 Because ethnic data is not always readily [...] 15-29 5 Kidney failure <15 (or dialysis) 9 Critical Result K:2.6 Called to [id number] at: 11:33:11 by:[id number] Read back by:[id number] 10 [facility] Severe Sepsis and Septic Shock Management Bundle Measure requires all lactic acids initially measuring >2.0 mmol/L be repeated. 11 Reference ranges based on room air. 12 Normal Range 180 to 914 Indeterminate Range 145 to 180 Deficient Range <145 13 Because ethnic data is not always readily [...] 15-29 5 Kidney failure <15 (or dialysis) 14 Desirable: <150 Borderline High: 150-199 High: 200-499 Very High: >500 15 Desirable: <200 Borderline High: 200-239 High: >239 16 Low: <40 Desirable: 40-60 High: >60 17 Desirable: <100 Near Optimal: 100-129 Borderline High: 130-159 High: 160-189 Very High: >189 18 [id number] 19 SEE RESULT BELOW Name: KOKICRISTHIANCARLENE : [address]: Elif Luevano MD Acct: [id number] Unit: [id number] AGE: 72 Location: [facility] Re03/05/18 SEX: F Status: REG REF SPEC: [id number] JOAQUINA: 03/05/[address] [facility] [address]: Elif Luevano MD REQ: [id number] RECD: 03/05/18 STATUS: COMP _ SOURCE: URINE SPDESC: ORDERED: Urine Culture Procedure Result Reported Site Urine Culture Final 03/06/18- 1606 ML No growth of clinically significant organisms * ML - Main Lab . END OF REPORT DEPARTMENT OF PATHOLOGY, [address] [place] [address] Jimbo Pratt M.D. Director [facility] # [id number] 20 *Ascorbic acid is present which may interfere with detection of blood. 21 F/U 22 SEE RESULTS BELOW [id number] EPIFIX 2X3 MESH TRANSFUSED 10/26/17 0750 23 Because ethnic data is not always readily [...] 15-29 5 Kidney failure <15 (or dialysis) 24 SEE RESULT BELOW Name: CARLENE MONDRAGON : [address]: Elif Luevano MD Acct: [id number] Unit: [id number] AGE: 71 Location: [facility] Re03/24/17 SEX: F Status: REG REF SPEC: [id number] JOAQUINA: 03/24/17-[address]: Elif Luevano MD REQ: [id number] RECD: 03/24/17 STATUS: COMP _ SOURCE: URINE SPDESC: ORDERED: Urine Culture Procedure Result Reported Site Urine Culture Final 03/25/17- 1230 ML No Growth (<1,000 CFU/mL) * ML - MAIN LAB ([facility]) . END OF REPORT * ML=Testing performed at Main Lab DEPARTMENT OF PATHOLOGY, [address] [place] [address] Jimbo Pratt M.D. Director [facility] # [id number] 25 Because ethnic data is not always readily [...] 15-29 5 Kidney failure <15 (or dialysis) 26 Desirable: <150 Borderline High: 150-199 High: 200-499 Very High: >500 27 Desirable: <200 Borderline High: 200-239 High: >239 28 Low: <40 Desirable: 40-60 High: >60 29 Desirable: <100 Near Optimal: 100-129 Borderline High: 130-159 High: 160-189 Very High: >189 30 FASTING 10 HOUR 31 FASTING 10 HOUR 32 Because ethnic data is not always [...] 5 Kidney failure <15 (or dialysis) 33 PT is 11.0. 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 With incubation, PTT does not entirely correct (39.6), raising the possibility of a factor inhibitor. Reviewed by: Sapphire Mora MD 34 ADDITIONAL INFORMATION This test has been modified from the ditching machine operating engineer's instructions. Its performance characteristics were determined by [facility] in a manner consistent with CLIA requirements. This test has not been cleared or approved by the U.S. Food and Drug Administration. 35 ADDITIONAL INFORMATION This test has been modified from the ditching machine operating engineer's instructions. Its performance characteristics were determined by [facility] in a manner consistent with CLIA requirements. This test has not been cleared or approved by the U.S. Food and Drug Administration. 36 ADDITIONAL INFORMATION This test has been modified from the ditching machine operating engineer's instructions. Its performance characteristics were determined by [facility] in a manner consistent with CLIA requirements. This test has not been cleared or approved by the U.S. Food and Drug Administration. 37 No laboratory evidence of von Willebrand's disease [...] not reviewed by physician. Test Performed by: [address] [address] 38 ADDITIONAL INFORMATION This test has been modified from the ditching machine operating engineer's instructions. Its performance characteristics were determined by [facility] in a manner consistent with CLIA requirements. This test has not been cleared or approved by the U.S. Food and Drug Administration. Test Performed by: [facility] - [address] [address] 39 Test Performed by: [address] [address] 40 ADDITIONAL INFORMATION This test has been modified from the ditching machine operating engineer's instructions. Its performance characteristics were determined by [facility] in a manner consistent with CLIA requirements. This test has not been cleared or approved by the U.S. Food and Drug Administration. Test Performed by: [facility] - [address] [address] 41 ADDITIONAL INFORMATION This test was developed and its performance characteristics determined by [facility] in a manner consistent with CLIA requirements. This test has not been cleared or approved by the U.S. Food and Drug Administration. 42 Test Performed by: [address] [address] 43 Test Performed by: [address] [address] 44 Test Performed by: [address] [address] 45 REFERENCE VALUE 10.3 - 12.8 46 IMPRESSION: 1) Data are diagnostic of presence [...] and common procoagulant pathways within assay sensitivities. 47 Arlin Kuo M.D. Test Performed by: [address] [address] 48 >100 to <200 pg/mL: likely compensated congestive heart failure (CHF) 200 to 400 pg/mL: likely moderate CHF >400 pg/mL: likely moderate to severe CHF 49 [facility] Severe Sepsis and Septic Shock Management Bundle Measure requires all lactic acids initially measuring >2.0 mmol/L be repeated. 50 SEE RESULT BELOW Name: CARLENE MONDRAGON : [address]: Vinay Chen MD Acct: [id number] Unit: [id number] AGE: 70 Location: ED Re06/09/16 SEX: F Status: DEP ER SPEC: [id number] JOAQUINA: 06/09/[address]: Vinay Chen MD REQ: [id number] RECD: 06/09/16 STATUS: TANG METCALF DR: Elif Luevano MD _ SOURCE: URINE SPDESC: ORDERED: Urine Culture Procedure Result Reported Site Urine Culture Final 06/10/16- 1614 ML No growth of clinically significant organisms * ML - MAIN LAB ([facility]) . END OF REPORT * ML=Testing performed at Main Lab DEPARTMENT OF PATHOLOGY, [address] [place] [address] Jimbo Pratt M.D. Director [facility] # [id number] 51 Acute inflammation: >10.00 52 99th percentile=0.04 ng/mL Troponin results at [facility] and [facility] are not interchangeable. 53 Because ethnic data is not always [...] 5 Kidney failure <15 (or dialysis) 55 Desirable <150 Borderline high 150-199 High 200-499 Very High >500 56 Desirable <200 Borderline high 200-239 High >239 57 Low <40 Desirable: 40-60 High: >60 58 Desirable: <100 mg/dL Near Optimal: 100-129 mg/dL Borderline High: 130-159 mg/dL High: 160-189 mg/dL Very High: >189 mg/dL 59 Because ethnic data is not always readily [...] 15-29 5 Kidney failure <15 (or dialysis) 60 DUE IN December DUE IN December Because [...] 15-29 5 Kidney failure <15 (or dialysis) 63 Desirable <150 Borderline high 150-199 High 200-499 Very High >500 64 Desirable <200 Borderline high 200-239 High >239 65 Low <40 Desirable: 40-60 High: >60 66 Desirable: <100 mg/dL Near Optimal: 100-129 mg/dL Borderline High: 130-159 mg/dL High: 160-189 mg/dL Very High: >189 mg/dL 67 Because ethnic data is not always readily [...] 15-29 5 Kidney failure <15 (or dialysis) 68 FASTING 10 HOUR DUE IN June Test Performed by: [place] [address] Travel Journalist: Vinay Bojorquez II, M.D., Ph.D. 70 RUN DATE: 06/26/14 [facility] LAB LIVE PAGE 1 RUN TIME: [address] [place] [address] Specimen Inquiry Name: CARLENE MONDRAGON : [address]: Elif Luevano MD Acct: [id number] Unit: [id number] AGE: 68 Location: LAB Re06/24/14 SEX: F Status: REG REF SPEC: [id number] JOAQUINA: 06/24/14-[address]: Elif Luevano MD REQ: [id number] RECD: 06/24/14 STATUS: COMP _ SOURCE: URINE SPDESC: ORDERED: Urine Culture QUERIES: Provider Requisition # [id number] Procedure Result Verified Site Urine Culture Final 06/26/14- 1641 ML Organism 1 NORMAL TIT[place] Count 10-25,000 (Moderate) CFU/ML * ML - MAIN LAB ([facility]) . END OF REPORT * ML=Testing performed at Main Lab DEPARTMENT OF PATHOLOGY, [address] [place] [address] Jimbo Pratt M.D. Director [facility] # [id number] 71 Desirable <150 Borderline high 150-199 High 200-499 Very High >500 72 Desirable <200 Borderline high 200-239 High >239 73 Low <40 Desirable: 40-60 High: >60 74 Desirable: <100 mg/dL Near Optimal: 100-129 mg/dL Borderline High: 130-159 mg/dL High: 160-189 mg/dL Very High: >189 mg/dL 75 Because ethnic data is not always readily [...] 15-29 5 Kidney failure <15 (or dialysis) 76 Because ethnic data is not always readily [...] 15-29 5 Kidney failure <15 (or dialysis) 77 RUN DATE: 01/22/14 [facility] LAB LIVE PAGE 1 RUN TIME: [address] [place] [address] Specimen Inquiry Name: CARLENE MONDRAGON Mo : [address]: Filiberto Kc GAGE DESIGNER Acct: [id number] Unit: [id number] AGE: 68 Location: [facility] Re01/20/14 SEX: F Status: REG REF SPEC: [id number] JOAQUINA: 01/20/[address] [facility] [address]: Filiberto Kc [employer] DESIGNER REQ: [id number] RECD: 01/20/14 STATUS: TANG METCALF DR: Elif Tijerina MD _ SOURCE: URINE SPDESC: ORDERED: Urine Culture QUERIES: Med[employer] Number [id number] Procedure Result Verified Site Urine Culture Final 01/22/14- 0913 ML Organism 1 NORMAL [place] Count 25-50,000 (Moderate) CFU/ML END OF REPORT * ML=Testing performed at Main Lab DEPARTMENT OF PATHOLOGY, [address] [place] [address] Jimbo Pratt M.D. Director [facility] # [id number] 78 Potassium reference range changed effective 12/22/13 79 Because ethnic data is not always [...] 5 Kidney failure <15 (or dialysis) 80 RUN DATE: 01/25/14 [facility] LAB LIVE PAGE 1 RUN TIME: [address] [place] [address] Specimen Inquiry Name: CARLENE MONDRAGON Mo : [address]: Filiberto Kc NP Acct: [id number] Unit: [id number] AGE: 68 Location: [facility] Re01/20/14 SEX: F Status: REG REF SPEC: [id number] JOAQUINA: 01/20/[address] [facility] [address]: Filiberto Kc NP REQ: [id number] RECD: 01/20/14 STATUS: TANG METACLF DR: Elif Tijerina MD _ SOURCE: BLOOD,VENO SPDESC: ORDERED: Blood Cult QUERIES: Med[employer] Number [id number] Procedure Result Verified Site Aerobic Culture Bottle Final 01/25/14- 1450 ML No Growth Day 5 Anaerobic Culture Bottle Final 01/25/14- 1450 ML No Growth Day 5 END OF REPORT * ML=Testing performed at Main Lab DEPARTMENT OF PATHOLOGY, [address] [place] [address] Jimbo Pratt M.D. Director [facility] # [id number] 81 WITH MICROSCOPIC 82 FASTING 83 Desirable <150 Borderline high 150-199 High 200-499 Very High >500 84 Desirable <200 Borderline high 200-239 High >239 85 Low <40 Desirable: 40-60 High: >60 86 Desirable <100 Near Optimal 100-129 Borderline high 130-159 High 160-189 Very High >189 87 Because ethnic data is not always [...] 5 Kidney failure <15 (or dialysis) 88 FASTING 89 The World Health Organization (WHO) Hepatitis B Immunoglobulin 1st International Reference Preparation (1976): The accepted criteria for immunity to HBV is anti-HBs activity greater than or equal to 10 mIU/mL. An Index Value of 1.00 is equivalent to 10 mIU/mL. Samples with an Index Value of 1.00 or greater are considered reactive (protective) in accordance with the CDC guidelines. 90 Test Performed by: [place] [address] Travel Journalist: Austin Vega III, M.D. 91 HDL Interpretation: Undesirable: High Risk: Less than 40 mg/dL Desirable: Low Risk: Greater than 60 mg/dL 92 LDL Interpretation: Low Risk Optimal Level: LDL Less than 100 mg/dL Near or Above Optimal: LDL 100-129 mg/dL Borderline High Risk: LDL 130-159 mg/dL High Risk: LDL 160-189 mg/dL Very High Risk: LDL Greater than 189 mg/dL 93 Because ethnic data is not always readily [...] 15-29 5 Kidney failure <15 (or dialysis) 94 -- REFERENCE VALUE -- Negative Test Performed by: [address] [address] Travel Journalist: Austin Vega III, M.D. 95 FASTING 96 Because ethnic data is not always readily [...] 15-29 5 Kidney failure <15 (or dialysis) 97 FASTING 98 -- REFERENCE VALUE -- 25-HYDROXY D TOTAL (D2+D3) Optimum levels in the normal population are 25-80 Test Performed by: [facility] [address] [address] Travel Journalist: Austin Vega III, M.D. 99 Therapeutic target for the treatment of diabetes Mellitus patients is <7% HBA1C, and in selective patients <6.0%.Please refer to [place] [employer] Diabetic care guidelines for further information. 10 A metabolite of Naproxen, O-desmethylnaproxen, has been 0 shown to interfere with the Jendrassik-Victoria method for measuring total bilirubin. Samples from patients who have taken Naproxen have shown spurious elevation in total bilirubin levels. 10 Because ethnic data is not always readily available, 1 this report includes an eGFR for both [...] 5 Kidney failure <15 (or dialysis) 10 Desirable: Less than 200 MG/DL 2 Borderline-High Risk: 200-239 MG/DL High-Risk: 240 MG/DL and over 10 HDL Interpretation: 3 Undesirable: High Risk: Less than 40 MG/DL Desirable: Low Risk: Greater than 60 MG/DL 10 Lymphopenia % 4 10 Neutrophilia % 5 Lymphopenia % 10 ---- 6 RUN DATE: 03/24/11 [facility] NMI LIVE PAGE 1 RUN TIME: 1239 Specimen Inquiry RUN USER: INTERFACE -- Name: CARLENE MONDRAGON [facility]#: [id number] Status: REG REF Re03/22/11 Age/Sex: 65/F Unit#: [id number] Location: [facility] : [birth year] -- Specimen: [id number] Spec Date: 03/22/[address]: Paulo sevilla MD Spec Type: SURGICAL P Received: 03/23/11-7912 Copies to: Elif larsen MD SPECIMEN 1) [...] 03/24/11 1237 -- -- DEPARTMENT OF PATHOLOGY, [address] [place] [address] [facility] Permit #[id number] Jimbo Pratt M.D. Director Jonna Song M.D. Prop Setter wagner -- 10 Anion gap measurement may be of limited value in the 7 presence of any alkalosis, especially in a combined acid base disorder. . 10 A metabolite of Naproxen, O-desmethylnaproxen, has been 8 shown to interfere with the Jendrassik-Edie method for measuring total bilirubin. Samples from patients who have taken Naproxen have shown spurious elevation in total bilirubin levels. 10 Because ethnic data is not always readily available, 9 this report includes an eGFR for both [...] 5 Kidney failure <15 (or dialysis) 11 Neutrophilia % 0 Lymphopenia % 11 CHOLESTEROL INTERPRETATION: 1 Desirable: Less than 200 MG/DL Borderline-High Risk: 200-239 MG/DL High-Risk: 240 MG/DL and over 11 HDL INTERPRETATION: 2 Undesirable: High Risk: Less than 40 MG/DL Desirable: Low Risk: Greater than 60 MG/DL 11 LDL INTERPRETATION: 3 Low Risk Optimal Level: LDL Less than 100 MG/DL Near or Above Optimal: LDL 100-129 MG/DL Borderline High Risk: LDL 130-159 MG/DL High Risk: LDL 160-189 MG/DL Very High Risk: LDL Greater than 189 MG/DL 11 A metabolite of Naproxen, O-desmethylnaproxen, has been 4 shown to interfere with the Jendrassik-Edie method for measuring total bilirubin. Samples from patients who have taken Naproxen have shown spurious elevation in total bilirubin levels. 11 Please note updated reference range, effective 09/10/09 5 11 CHOLESTEROL INTERPRETATION: 6 Desirable: Less than 200 MG/DL Borderline-High Risk: 200-239 MG/DL High-Risk: 240 MG/DL and over 11 HDL INTERPRETATION: 7 Undesirable: High Risk: Less than 40 MG/DL Desirable: Low Risk: Greater than 60 MG/DL 11 LDL INTERPRETATION: 8 Low Risk Optimal Level: LDL Less than 100 MG/DL Near or Above Optimal: LDL 100-129 MG/DL Borderline High Risk: LDL 130-159 MG/DL High Risk: LDL 160-189 MG/DL Very High Risk: LDL Greater than 189 MG/DL 11 Anion gap measurement may be of limited value in the 9 presence of any alkalosis, especially in a combined acid base disorder. . 12 Note change in reference range as of 10/11/07. The 0 change was based on recommendations from the [employer] [employer]. 12 Please note change in reference range effective 07 1 . 12 A metabolite of Naproxen, O-desmethylnaproxen, has been 2 shown to interfere with the Jendrassik-Victoria method for measuring total bilirubin. Samples from patients who have taken Naproxen have shown spurious elevation in total bilirubin levels. 12 Because ethnic data is not always readily available, 3 this report includes an eGFR for both [...] 15-29 5 Kidney failure <15 (or dialysis) 12 CHOLESTEROL INTERPRETATION: 4 Desirable: Less than 200 MG/DL Borderline-High Risk: 200-239 MG/DL High-Risk: 240 MG/DL and over 12 HDL INTERPRETATION: 5 Undesirable: High Risk: Less than 40 MG/DL Desirable: Low Risk: Greater than 60 MG/DL 12 LDL INTERPRETATION: 6 Low Risk Optimal Level: LDL Less than 100 MG/DL Near or Above Optimal: LDL 100-129 MG/DL Borderline High Risk: LDL 130-159 MG/DL High Risk: LDL 160-189 MG/DL Very High Risk: LDL Greater than 189 MG/DL 12 FINAL: NO GROWTH DAY 2 (<1,000 CFU/mL) 7 Procedures Date Code Description Status 11/02/2017 37449 Removal Devitalization Tissue Wound Less Than Equal 20 Completed Square CM 10/26/2017 09096 Application Skin Substitute Graft Trunk,Arms Lets Up Completed To 100 SQ CM 10/12/2017 17466 Removal Devitalized Tissue Wound Greater Than 20 Completed Square CM 10/12/2017 77995 Removal Devitalization Tissue Wound Less Than Equal 20 Completed Square CM 10/05/2017 59956 Removal Devitalized Tissue Wound Greater Than 20 Completed Square CM 10/05/2017 70248 Removal Devitalization Tissue Wound Less Than Equal 20 Completed Square CM 05/31/2017 38649 Removal Devitalization Tissue Wound Less Than Equal 20 Completed Square CM 05/24/2017 92878 Removal Devitalization Tissue Wound Less Than Equal 20 Completed Square CM 05/17/2017 41885 Removal Devitalization Tissue Wound Less Than Equal 20 Completed Square CM 05/10/2017 10333 Removal Devitalization Tissue Wound Less Than Equal 20 Completed Square CM 05/08/2017 [id number] Mammogram Completed 05/03/2017 81830 Removal Devitalization Tissue Wound Less Than Equal 20 Completed Square CM 12/23/2016 80550 EKG Tracing & Interpretation Completed 07/05/2016 [id number] Colonoscopy Completed 07/08/2015 [id number] Mammogram Completed 02/19/2015 06767 Repair Hernia Umbilical > 5 Yrs, Reducible Completed 02/02/2015 68091 EKG Tracing & Interpretation Completed 06/17/2014 97650 Diffusing Capacity Completed 06/17/2014 72704 Pulmonary Function><Bronchodil Completed 02/14/2014 [id number] Mammogram Completed 04/04/2013 [id number] Bone Mineral Density Test Completed 12/28/2012 [id number] Mammogram Completed 11/29/2012 14355 EKG Tracing & Interpretation Completed 12/20/2011 [id number] Mammogram Completed 03/22/2011 [id number] Colonoscopy Completed 12/16/2010 [id number] Mammogram Completed 07/09/2010 63865 Noninvasive Ear Or Pulse Oximetry For Oxygen Completed Saturation 05/04/2010 17568 Noninvasive Ear Or Pulse Oximetry For Oxygen Completed Saturation 04/27/2010 60737 Noninvasive Ear Or Pulse Oximetry For Oxygen Completed Saturation 04/19/2010 65680 Noninvasive Ear Or Pulse Oximetry For Oxygen Completed Saturation 04/14/2010 65962 Inhalation TX For Acute Airway Obstruction Completed W/Nebulizer/Inhaler 11/17/2009 [id number] Bone Mineral Density Test Completed 11/17/2009 [id number] Mammogram Completed 10/16/2009 57668 EKG Tracing & Interpretation Completed 10/08/2007 86829 EKG Tracing & Interpretation Completed 10/08/2007 55697 EKG Tracing & Interpretation Completed 10/19/2001 [id number] Colonoscopy Completed Encounters Type Date Location Provider Dx Diagnosis Office Visit 11/16/2017 Wound Care Center Juan Conklin S89.81xD Other specified 8:00a [place] [facility]ino Freire injuries of right lower leg, subs encntr S81.801D Unspecified open wound, right lower leg, subs encntr L03.115 Cellulitis of right lower limb R60.0 Localized edema Office Visit 11/09/2017 8:00a Wound Care Juan Conklin S81.801A Unspecified open Center [place] [facility] [place] Mino Freire wound, right lower leg, initial encounter L03.115 Cellulitis of right lower limb S89.81xA Other specified injuries of right lower leg, init encntr I10 Essential (primary) hypertension Office Visit 11/09/2017 10:00a [facility] [address] Internal Leif I10 Essential ( primary) Medicine - Mino Luevano hypertension [place] S51.811A Laceration w/o foreign body of right forearm, init encntr Office Visit 10/20/2017 8:30a Wound Care Marcio Ramos S81.801A Unspecified open Center [place] [facility] Michael, wound, right lower FACS leg, initial encounter E78.00 Pure hypercholesterolemia, unspecified F31.9 Bipolar disorder, unspecified F17.211 Nicotine dependence, cigarettes, in remission I10 Essential (primary) hypertension E66.9 Obesity, unspecified J44.9 Chronic obstructive pulmonary disease, unspecified D50.9 Iron deficiency anemia, unspecified E03.9 Hypothyroidism, unspecified Z99.81 Dependence on supplemental oxygen Office Visit 10/19/2017 7:40a [facility] [address] Internal Elif I10 Essential ( primary) Juany Luevano M.D. 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 hypertension [place] Office Visit 08/17/2017 7:40a [facility] [address] Internal [place] I10 Essential ( primary) Juany Luevano M.D. hypertension [place] R60.0 Localized edema Office Visit 07/11/2017 2:20p [facility] [address] Internal Elif R60.0 Localized edema Mino Vergara Z68.30 Body mass index (BMI) 30.0-30.9, adult Office Visit 06/07/2017 Wound Care Center Chuck Rose S81.812A Laceration 8:30a [facility] [place] Crow without foreign body, left lower leg, init encntr Office Visit 06/06/2017 Pulmonology And Lydia Mayen, J98.4 Other disorders 9:00a Sleep Services Of of lung [facility] [address] E66.09 Other obesity due to excess calories J44.9 Chronic obstructive pulmonary disease, unspecified Office Visit 05/05/2017 10:20a [facility] [address] Internal El[place] R60.0 Localized edema Juany Luevano M.D. [place] Office Visit 05/03/2017 9:00a Wound Care Chuck Rose S81.812A Laceration Center AT [facility] MD Crow without foreign body, left lower leg, init encntr Office Visit 04/17/2017 2:20p [facility] [address] Internal Elif R60.0 Localized edema Mino Vergara L03.115 Cellulitis of right lower limb Office Visit 04/10/2017 11:40a [facility] [address] Internal Elif L03.115 Cellulitis of Juany Luevano M.D. right lower limb [place] L60.2 Onychogryphosis Office Visit 04/06/2017 [facility] [address] Internal Filiberto Kc, MARTINA L03.115 Cellulitis of right 3:00p Medicine - lower limb [place] Office Visit 12/23/2016 [facility] [address] Internal [place] Z01.818 Encounter for other 3:20p Juany Luevano M.D. preprocedural [place] examination I10 Essential (primary) hypertension D68.9 Coagulation defect, unspecified H26.9 Unspecified cataract J44.9 Chronic obstructive pulmonary disease, unspecified Office Visit 09/20/2016 3:20p [facility] [address] Internal [place] R60.0 Localized edema Juany Luevano M.D. [place] Office Visit 08/30/2016 11:00a [facility] [address] Internal [place] L97.801 Non-prs chr Juany Luevano M.D. ulcer oth prt [place] unsp low leg lmt to brkdwn skin R60.0 Localized edema Office Visit 07/21/2016 8:40a [facility] [address] Internal [place] D68.9 Coagulation Juany Luevano M.D. defect, [place] unspecified R60.0 Localized edema I10 Essential (primary) hypertension H02.534 Eyelid retraction left upper eyelid Office Visit 06/14/2016 2:00p [facility] [address] Internal [place] D64.9 Anemia, Juany Luevano M.D. unspecified [place] D68.9 Coagulation defect, unspecified Office Visit 06/06/2016 8:30a Pulmonology And Lydia R91.8 Other nonspecific Sleep Services Of MD Tiarra abnormal finding [facility] [address] of lung [place] J44.9 Chronic obstructive pulmonary disease, unspecified Office Visit 05/13/2016 2:20p [facility] Internal [place] R91.8 Other nonspecific Juany Luevano M.D. abnormal finding [place] of lung field R60.0 Localized edema Office Visit 04/18/2016 9:00a [facility] [address] Internal [place] R74.0 Nonspec elev of Juany Luevano M.D. levels of [place] transamns & lactic acid dehydrgnse Z12.11 Encounter for screening for malignant neoplasm of colon R91.8 Other nonspecific abnormal finding of lung field I10 Essential (primary) hypertension Office Visit 02/26/2016 7:30a Pulmonology And Lydia J98.4 Other disorders Sleep Services Of MD Tiarra of lung [facility] [address] J44.9 Chronic obstructive pulmonary disease, unspecified Z87.891 Personal history of nicotine dependence Office Visit 02/11/2016 4:00p [facility] [address] Internal [place] H61.21 Impacted Juany Luevano M.D. cerumen, right [place] ear Office Visit 02/08/2016 3:20p [facility] [address] Internal [place] Z00.00 Encntr for Juany Luevano M.D. general adult [place] medical exam w/o abnormal findings R91.1 Solitary pulmonary nodule Z12.11 Encounter for screening for malignant neoplasm of colon E78.5 Hyperlipidemia, unspecified I10 Essential (primary) hypertension F31.89 Other bipolar disorder Z11.1 Encounter for screening for respiratory tuberculosis Office Visit 11/19/2015 [facility] [address] Internal El[place] S81.002D Unspecified open 10:00a Juany Luevano M.D. 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 wound, left knee, [place] initial encounter Office Visit 10/13/2015 [facility] [address] Internal [place] R23.8 Other skin 3:20p Juany Luevano M.D. changes [place] Office Visit 09/29/2015 [facility] [address] Internal Elif H00.013 Hordeolum 10:40a Juany Luevano M.D. externum right [place] eye, unspecified eyelid S81.801A Unspecified open wound, right lower leg, initial encounter R23.8 Other skin changes Office Visit 07/27/2015 10:20a [facility] [address] Internal [place] I10 Essential ( primary) Juany Luevano M.D. hypertension [place] R31.9 Hematuria, unspecified Z87.891 Personal history of nicotine dependence Office Visit 04/09/2015 4:00p [facility] [address] Internal [place] R23.3 Spontaneous Juany Luevano M.D. ecchymoses [place] Office Visit 10/20/2014 10:00a [facility] [address] Internal Elif 496 COPD Airway Juany Luevano M.D. Obstruction [place] Chronic Not Class Elsewhere 599.70 Hematuria, Unspecified Office Visit 07/25/2014 9:00a [facility] [address] Internal Elif 496 COPD Airway Juany Luevano M.D. Obstruction [place] Chronic Not Class Elsewhere 401.1 Hypertension Benign Office Visit 07/09/2014 10:20a [facility] [address] Internal El[place] 401.1 Hypertension Juany Luevano M.D. 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 [facility] Routine AT Health Care Facility 272.2 Hyperlipidemia Mixed 401.1 Hypertension Benign 296.7 Bipolar I Disorder Current NOS V76.12 Screening Mammogram Malig Elvis Other 496 COPD Airway Obstruction Chronic Not Class Elsewhere 486 Pneumonia Organism Unspec 782.3 Edema v04.81 Need For Prophylactic Vaccination & Inoculation/Influenza 715.04 Osteoarthrosis Generalized Hand Office Visit 11/28/2013 1:20p [facility] [address] Internal [place] 786.2 Cough Juany Luevano M.D. [place] Office Visit 07/02/2013 11:20a [facility] [address] Internal Elif 401.1 Hypertension Juany Luevano M.D. Benign [place] 272.2 Hyperlipidemia Mixed 296.7 Bipolar I Disorder Current NOS 790.4 Transaminase Or Lactic Acid Dehydrogenase Elevation Nonspec Office Visit 04/01/2013 10:00a [facility] [address] Internal [place] 401.1 Stanley Luevano M.D. Benign [place] 786.2 Cough 272.2 Hyperlipidemia Mixed Office Visit 11/29/2012 10:20a [facility] [address] Internal Elif V70.0 Examination Juany Luevano M.D. [facility] Routine AT Health Care Facility 401.1 Hypertension Benign 272.2 Hyperlipidemia Mixed 296.7 Bipolar I Disorder Current NOS V76.10 Screening For Malignant Neoplasm Breast V04.81 Need For Prophylactic Vaccination & Inoculation/Influenza Office Visit 10/05/2012 3:20p [facility] [address] Internal Elif 782.3 Edema Juany Luevano M.D. [place] Office Visit 09/19/2012 10:40a [facility] [address] Internal Shana Dela Cruz, 682.6 Cellulitis & Medicine - N.P. Abscess Leg Except [place] Foot Office Visit 09/07/2012 10:40a [facility] [address] Internal Shana Dela Cruz, 682.6 Cellulitis & Medicine - N.P. Abscess Leg Except [place] Foot Office Visit 06/04/2012 9:20a [facility] [address] Internal Elif 401.1 Hypertension Juany Luevano M.D. Benign Cathy 496 COPD Airway Obstruction Chronic Not Class Elsewhere Office Visit 04/03/2012 10:00a [facility] [address] Internal Elif 401.1 Hypertension Juany Luevano M.D. Benign [place] 296.7 Bipolar I Disorder Current NOS Office Visit 11/28/2011 10:20a [facility] [address] Internal Elif V70.0 Examination Juany Luevano M.D. [facility] Routine AT Health Care Facility 496 COPD Airway Obstruction Chronic Not Class Elsewhere 401.1 Hypertension Benign V76.10 Screening For Malignant Neoplasm Breast 280.8 Iron Deficiency Anemia Other Spec 244.9 Hypothyroidism Other Unspec 272.2 Hyperlipidemia Mixed V04.81 Need For Prophylactic Vaccination & Inoculation/Influenza Office Visit 04/25/2011 11:40a [facility] [address] Internal [place] 401.1 Hypertension Juany Luevano M.D. Benign [place] 496 COPD Airway Obstruction Chronic Not Class Elsewhere 280.8 Iron Deficiency Anemia Other Spec V06.1 Xpuidjtzgm-Carrkcc-Ypkmzjwm Combined (DTaP) Office Visit 07/09/2010 9:00a DO Not Use Elif 496 COPD Airway Mady Luevano M.D. Obstruction Chronic Not Class Elsewhere 401.1 Hypertension Benign 272.0 Hypercholesterolemia Pure Office Visit 05/04/2010 DO Not Use Elif 496 COPD Airway 2:30p Mady Luevano M.D. Obstruction Chronic Not Class Elsewhere Office Visit 04/27/2010 DO Not Use Shana Dela Cruz 496 COPD Airway 9:30a [facility] [address]-[place] N.P. Obstruction Chronic Not Class Elsewhere Office Visit 04/19/2010 DO Not Use Elif 496 COPD Airway 9:30a Mady Luevano M.D. Obstruction Chronic Not Class Elsewhere Office Visit 04/14/2010 DO Not Use Shana Dela Cruz, 466.0 Bronchitis Acute 11:30a Leobardo-Cathy N.P. Office Visit 10/16/2009 DO Not Use Elif V70.0 Examination 10:15a Mady Luevano M.D. General Medical Routine AT Health Care Facility 401.1 Hypertension Benign 244.9 Hypothyroidism Other Unspec 296.7 Bipolar I Disorder Current NOS 272.0 Hypercholesterolemia Pure 496 COPD Airway Obstruction Chronic Not Class Elsewhere 796.9 Abnormal Findings Other Nonspec V03.82 Streptococcus Pneumoniae Vaccination Spec Other Office Visit 04/21/2009 DO Not Use [place], 244.9 Hypothyroidism 9:30a Mady Castellanos M.D. Other Unspec 401.1 Hypertension Benign 296.7 Bipolar I Disorder Current NOS Office Visit 10/13/2008 DO Not Use [place], V70.0 Examination 9:15a Mady Castellanos M.D. General Medical Routine AT Health Care Facility 493.90 Asthma Unspec W/O Status Asthmaticus 272.0 Hypercholesterolemia Pure 401.1 Hypertension Benign 244.9 Hypothyroidism Other Unspec V04.81 Need For Prophylactic Vaccination & Inoculation/Influenza Office Visit 04/07/2008 DO Not Use [place], 244.9 Hypothyroidism 9:15a Mady Castellanos M.D. Other Unspec 272.0 Hypercholesterolemia Pure 496 COPD Airway Obstruction Chronic Not Class Elsewhere 401.1 Hypertension Benign Office Visit 10/08/2007 DO Not Use [place], V70.0 Examination 9:45a Mady Castellanos M.D. General Medical Routine AT Health Care Facility 244.9 Hypothyroidism Other Unspec 272.0 Hypercholesterolemia Pure 401.1 Hypertension Benign 296.7 Bipolar I Disorder Current NOS Office Visit 07/02/2007 DO Not Use [place], 244.9 Hypothyroidism 9:00a Mady Castellanos M.D. Other Unspec 272.0 Hypercholesterolemia Pure 401.1 Hypertension Benign Office 04/02/2007 DO Not Use [place], 272.0 Hypercholesterolemia Visit 9:00a Mady Castellanos M.D. Pure 244.9 Hypothyroidism Other Unspec 296.7 Bipolar I Disorder Current NOS 401.1 Hypertension Benign Office Visit 01/15/2007 9:45a DO Not Use Radkatiana, 296.7 Bipolar I Mady Castellanos M.D. Disorder Current NOS 401.1 Hypertension Benign Office Visit 12/22/2006 12:45p DO Not Use Jasmin Walker, 782.3 Edema Mady Herzog 401.1 Hypertension Benign Office Visit 11/29/2006 3:45p DO Not Use Radomsjulia, 599.0 UTI Urinary Mady Castellanos M.D. Tract Infection Site Not Spec 496 COPD Airway Obstruction Chronic Not Class Elsewhere 401.1 Hypertension Benign V04.81 Need For Prophylactic Vaccination & Inoculation/Influenza Office Visit 11/27/2006 DO Not Use Radkatiana, 781.0 Abnormal 2:00p Mady Castellanos M.D. Involuntary Movements 780.79 Malaise And Fatigue Other 296.7 Bipolar I Disorder Current NOS 786.2 Cough Office Visit 10/04/2006 DO Not Use Rad[place], 244.9 Hypothyroidism 9:30a Mady Castellanos M.D. Other Unspec 296.7 Bipolar I Disorder Current NOS 401.1 Hypertension Benign V70.0 Examination General Medical Routine AT Health Care Facility Office Visit 05/29/2006 DO Not Use Radkat[place], 493.90 Asthma Unspec 9:15a Mady Castellanos M.D. W/O Status Asthmaticus 466.0 Bronchitis Acute 496 COPD Airway Obstruction Chronic Not Class Elsewhere 401.1 Hypertension Benign Office Visit 04/10/2006 DO Not Use Radkatiana, 493.90 Asthma Unspec 9:45a Mady Castellanos M.D. W/O Status Asthmaticus 466.0 Bronchitis Acute 401.1 Hypertension Benign Office Visit 03/29/2006 DO Not Use Radkat[place], 466.0 Bronchitis Acute 9:45a Mady Castellanos M.D. 401.1 Hypertension Benign 493.90 Asthma Unspec W/O Status Asthmaticus Office Visit 03/10/2006 DO Not Use Radkat[place], 381.4 Otitis Media Acute 1:00p Mady Castellanos M.D. Or Chronic Nonsuppurative 465.9 URI Upper Respiratory Infections Acute Unspec Sites Office Visit 09/27/2005 DO Not Use Denise, 401.1 Hypertension 8:45a [facility] [address]-Cathy Castellanos M.D. Benign 272.0 Hypercholesterolemia Pure 244.9 Hypothyroidism Other Unspec 496 COPD Airway Obstruction Chronic Not Class Elsewhere Plan of Treatment Future Appointment(s):03/15/2018 9:20 am - Elif Luevano M.D. at [facility] [address] Internal Medicine - [place]13/17/2019 9:00 am - Lydia Mayen MD at [facility] [address]11/09/2017 - Elif Luevano M.D.I10 Essential (primary) hypertensionComments:Your blood pressure is fine. Continue the same medication Blood tests due this winter - prior to next visitFollow up: .811A Laceration without foreign body of right forearm, initial encounter
--- OUTSIDE RECORDS SUMMARY | 2018-03-21 12:05 | XMS REPORT | Continuity of Care Document ---
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 Staffed 12/09. 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 Mary Gregg [phone]. 2. Tc Gregg same # ETOH Use [...] s once daily Bassem, at bedtime M.DSuzette Emporium 10/14 Active Capsules 300mg 60cap 1 by [...] days M.D. 12/03 Zostavax 02/15 Hx Solution [id number]/ 1unit 1 dose s/c Rec 0.65ML s [...] to once daily over 2-3 weeks Bag [place] 01/04 Hx apply to Elif /2011 feet [...] Hx Solution 0.5-2.5(3 60uni 1 vial in [facility] Gary/Albuter )mg/3ML ts nebulizer Cotton, ol Sulfate - twice daily M.D. 05/04 Nebulizer 04/14 Hx 1unit use three s times daily Cotton, - as needed M.D. 05/04 Budesonide 04/14 Hx Suspension 0.5mg/2ML 60uni 2ml in [facility] Respules ts nebulizer Cotton, - twice [...] CPT Code Status Date Vaccine Lot # [id number] Given 11/23/2017 Influenza Virus Vaccine, Quadrivalent, Split, [id number] Preservative Free 18171 Given 01/27/2014 Pneumococcal Conjugate Vaccine 13 Valent For [id number] Intramuscular Use 58331 Given 01/10/2014 Flu Vaccine Split Virus Preservative Free For [id number] Indiv 3Yr Older 32477 Given 11/29/2012 Flu Vaccine Split Virus Preservative Free For [id number] Indiv 3Yr Older Q2038 Given 11/28/2011 Fluzone Vaccine [id number] 78897 Given 04/25/2011 Tdap - Tetanus/Diptheria/Acellular Pertussis [id number] Q2035 Given 11/23/2010 Afluria Vaccine [id number] 73266 Given 12/05/2009 Influenza Virus 3Yrs & Over 34777 Given 10/16/2009 Pneumonia Vaccine 25201 Given 02/27/2009 Influenza Virus Vaccine, Pandemic Formulation 80683 Given 10/13/2008 Influenza Virus 3Yrs & Over 55014 Given 12/12/2007 Influenza Virus 3Yrs & Over 88218 Given 12/12/2007 Influenza Virus 3Yrs & Over 45092 Given 11/29/2006 Influenza Virus 3Yrs & Over 88978 Given 08/29/2006 Tetanus And Diptheria (Td) For [...] H/L Range Note Urine Culture And 03/08/2018 [facility] Urine Culture SEE RESULT [address] [place] [address] [phone] Laboratory test 03/08/2018 [facility] Hemoglobin A1c 5.4 % N 4.0-5.[address] (Glyco HGB) [place] [address] [phone] Urinalysis Profile 03/08/2018 [facility] Urine Color Straw [address] [place] [address] [phone] Urine Appearance Clear Urine Specific [place] 1.004 Low 1.010-1.030 Urine pH 7.0 N [...] Cell Present Abnormal Absent Laboratory test 03/08/2018 [facility] Emporium 0.93 N 0.6-1.[address] mmol/[place] [address] [phone] Manual 03/08/2018 [facility] Immature 7 % N 0-[address] [place] [address] [phone] Neutrophil % 88 % Band % 7 % N 0-8 Lymphocytes % 2 % Monocytes % 3 % RBC Morphology Normal Normal Abs Neutrophils 25.8 10^3/uL High 1.5-7.7 Abs Lymphocytes 0.6 10^3/uL Low 1.0-4.8 Abs Monocytes 0.8 10^3/uL N 0-0.8 CBC Auto 03/08/2018 [facility] White Blood 27.3 10^3/uL High 3.5-10.[address] [place] [address] [phone] Red Blood Count 4.14 10^6/uL N 4.00-5.40 Hemoglobin 12.5 g/dL N 12.0-16.0 Hematocrit 37 % N 35-47 Mean Corpuscular Volume 90 fL N 80-97 Mean Corpuscular Hemoglobin 30 pg N 27-31 Mean Corpuscular HGB Conc 34 g/dL N 31-36 Red Cell Distribution Width 15 % N 10.5-15 Platelet Count 351 10^3/uL N 150-450 Mean Platelet Volume 7.5 fL N 7.4-10.4 Laboratory 03/08/2018 [facility] Partial Thrombo 45.0 High 26.0-36.3 test finding [address] [place] [address] [phone] Inr/Protime 03/08/2018 [facility] Inr 0.91 N 0.77-1.[address] [place] [address] [phone] Laboratory 03/08/2018 [facility] Troponin-I (TnI) 0.01 ng/mL <0.04 3 test finding [address] [place] [address] [phone] Lipid Profile 03/08/2018 [facility] Triglycerides 57 mg/dL 4 (Trig/Chol/HDL [address] ) [place] [address] [phone] Cholesterol 165 mg/dL 5 HDL Cholesterol 87.5 mg/dL 6 LDL Cholesterol 66 mg/dL 7 Comp Metabolic Panel 03/08/2018 [facility] Sodium 139 mmol/L N 135-145 [address] [place] [address] [phone] Chloride 103 mmol/L N 101-111 Co2 Carbon [...] 7 mmol/L N 2-11 Laboratory test 03/08/2018 [facility] Lactic Acid 1.7 mmol/L N 0.5-2.0 10 finding [address] [place] [address] [phone] Arterial Blood 03/08/2018 [facility] O2 Device 3 LPM NC Gas [address] [place] [address] [phone] Vent Mode Nasal Cannula PH Arterial 7.46 High 7.35-7.45 Pco2 Arterial 39 mmHg N 35-45 Po2 Arterial 98 mmHg N 80-100 O2 Saturation Arterial 99.1 % High 94.0-98.0 Base Excess Arterial 3.7 mmol/L High -2.0-2.0 11 Hco3 Arterial 27.8 mmol/L N 19-31 Laboratory test 03/05/2018 [facility] Emporium 0.89 mmol/L N 0.6-1.[address] [place] [address] [phone] Laboratory test 03/05/2018 [facility] TSH (Thyroid 3.28 N 0.34 -5.[address] Stim Horm) mcIU/mL [place], [place] [id number] [phone] Vitamin B12 1174 pg/mL High 180-914 12 Comp Metabolic Panel 03/05/2018 [facility] Sodium 140 mmol/L N 135-[address] [place] [address] [phone] Potassium 3.3 mmol/L Low 3.5-5.0 Chloride 105 [...] Egfr 77.0 >60 13 Lipid Profile 03/05/2018 [facility] Triglycerides 132 mg/dL 14 (Trig/Chol/HDL) [place] [address] [phone] Cholesterol 191 mg/dL 15 HDL Cholesterol 88.7 mg/dL 16 LDL Cholesterol 76 mg/dL 17 Urine Culture And 03/05/2018 [facility] Urine Culture SEE RESULT 18, [address] [place] [address] [phone] Urinalysis Profile 03/05/2018 [facility] [place] [address] [phone] Urine Appearance Clear Urine Specific [place] 1.008 Low 1.010-1.030 Urine pH 7.0 N [...] Cell Present Abnormal Absent Laboratory test 10/25/2017 [facility] Epifix 2X3 SEE RESULTS 21, [address] Mesh BELO <[place] [address] NOTE> [phone] Basic Metabolic 05/08/2017 [facility] Sodium 139 mmol/L N 133- [address] [place] [address] [phone] Potassium 4.0 mmol/L N 3.5-5.0 Chloride 107 mmol/L N 101-111 Co2 Carbon Dioxide 26 mmol/L N 22-32 Anion Gap 6 mmol/L N 2-11 Glucose 83 mg/dL N 70-100 Blood Urea Nitrogen 17 mg/dL N 6-24 Creatinine 0.79 mg/dL N 0.51-0.95 BUN/Creatinine Ratio 21.5 High 8-20 Calcium 9.9 mg/dL N 8.6-10.3 Egfr Non- 71.3 >60 Egfr 91.7 >60 23 Urinalysis Profile 03/24/2017 [facility] Urine Color Straw [address] [place] [address] [phone] Urine Appearance Clear Urine Specific [place] 1.004 Low 1.010-1.030 Urine pH 7.0 N [...] Present Abnormal Absent Urine Culture And 03/24/2017 [facility] Urine Culture SEE RESULT [address] [place] [address] [phone] Basic Metabolic 03/24/2017 [facility] Sodium 142 mmol/L N 133- [address] [place] [address] [phone] Potassium 3.9 mmol/L N 3.5-5.0 Chloride 109 mmol/L N 101-111 Co2 Carbon Dioxide 29 mmol/L N 22-32 Anion Gap 4 mmol/L N 2-11 Glucose 80 mg/dL N 70-100 Blood Urea Nitrogen 16 mg/dL N 6-24 Creatinine 0.84 mg/dL N 0.51-0.95 BUN/Creatinine Ratio 19.0 N 8-20 Calcium 9.9 mg/dL N 8.6-10.3 Egfr Non- 66.5 >60 Egfr 85.5 >60 25 Lipid Profile 03/24/2017 [facility] Triglycerides 60 mg/dL 26 (Trig/Chol/HDL) [address] [place] [address] [phone] Cholesterol 188 mg/dL 27 HDL Cholesterol 93.0 mg/dL 28 LDL Cholesterol 83 mg/dL 29 Laboratory test 03/24/2017 [facility] TSH (Thyroid 5.62 High 0.34-5.[address] Stim Horm) mcIU/[place] [address] [phone] Emporium 0.51 mmol/L Low 0.6-1.2 31 Comp Metabolic Panel 03/24/2017 [facility] Sodium 143 mmol/L N 133-[address] [place] [address] [phone] Potassium 3.9 mmol/L N 3.5-5.0 Chloride 108 [...] >60 Egfr 84.3 >60 32 Inr/Protime 09/14/2016 [facility] Inr 0.90 N 0.89-1.[address] [place] [address] [phone] Laboratory test 09/14/2016 [facility] Partial 48.2 High 26.0- 36.[address] [place] [address] Time PTT [phone] PTT Mixing 09/14/2016 [facility] PTT/Normal 35.7 N 26.0-36.[address] [place] [address] [phone] PTT/After 1 HR Incubation 39.6 seconds High 26.0-36.3 PT/PTT Mixing Study Interp (SEE NOTE) N 33 Factor 8 09/14/2016 [facility] Coagulation Factor 153 % N 55 - [address] [address] [phone] von Willebrand Factor Antigen 199 % N 55 - 200 35 VonWillibrand Factor Activity 172 % N 55 - 200 36 von Willebrand Panel Interp See Comment N 37 Lupus Anticoagulant 09/14/2016 [facility] Lac [address] 43 sec Abnormal 26 - 36 [address] Mix 1:1 [place], [place] [address] [phone] Lac DRVVT Mix Ratio 1.7 ratio Abnormal [...] NOTE> N 47 CBC Auto Diff 06/28/2016 [facility] White Blood 7.9 10^3/uL N 3.5-10.[address] [place] [address] [phone] Red Blood Count 4.14 10^6/uL N 4.0-5.4 [...] 0.1 N Iron & Iron Binding 06/28/2016 [facility] Iron 67 g/dL N 50- 212 [address] [place] [address] [phone] Unsaturated Iron Binding 450 g/dL N Total Iron Binding Capacity 517 g/dL High 250-450 % Iron Saturation 13 % Low 15-55 Laboratory test 06/28/2016 [facility] Ferritin 14.8 ng/mL N 11 -[address] [place] [address] [phone] Inr/Protime 06/28/2016 [facility] Inr 0.89 N 0.89-1.[address] [place] [address] [phone] Laboratory test 06/28/2016 [facility] Partial 51.4 High 26.0- 36.3 finding 101 [place] [address] PTT [phone] Emporium 0.50 mmol/L Low 0.6-1.2 Laboratory test 06/09/2016 [facility] Emporium 0.55 mmol/L Low 0.6-1.[address] [place] [address] [phone] TSH (Thyroid Stim Horm) 1.34 mcIU/mL N 0.34-5.60 B-Type Natriuretic Peptide BNP 23 pg/mL N 48 Lactic Acid 1.0 mmol/L N 0.5-2.0 49 CKMB 06/09/2016 [facility] CKMB ng/mL 4.1 ng/mL N 0.6-6.[address] [place] [address] [phone] Urinalysis Profile 06/09/2016 [facility] Urine Color Yellow [place] [address] [place] [address] [phone] Urine Appearance Cloudy N Urine Specific [place] 1.003 Low 1.010-1.030 Urine pH 6.0 N [...] Present Abnormal Absent Urine Culture And 06/09/2016 [facility] Urine Culture SEE RESULT [address] [place] [address] [phone] CBC Auto Diff 06/09/2016 [facility] White Blood 9.9 10^3/uL N 3.5-[address] Count 0.8 [place] [address] [phone] Red Blood Count 3.78 10^6/uL Low 4.0-5.4 [...] Blood Cells % 0 N Inr/Protime 06/09/2016 [facility] Inr 0.91 N 0.89-1.11 [address] [place] [address] [phone] Laboratory test 06/09/2016 [facility] Partial 45.7 High 26.0- 36.3 finding 101 [facility] [place] [address] PTT [phone] Laboratory test 06/09/2016 [facility] Magnesium 1.9 mg/dL N 1.9-2.7 finding [address] [place] [address] [phone] Lipase 19 U/L N 11.0-82.0 Creatine Kinase(CK) 100 U/L N 10-223 C Reactive Protein 11.49 mg/L High < 5.00 51 Troponin-I (TnI) 0.00 ng/mL N <0.04 52 Comp Metabolic Panel 06/09/2016 [facility] Sodium 136 mmol/L N 133-145 [address] [place] [address] [phone] Potassium 3.4 mmol/L Low 3.5-5.0 Chloride 106 [...] N >60 53 Comp Metabolic Panel 04/30/2016 [facility] Albumin 3.9 g/dL N 3.2-5.2 [address] [place] [address] [phone] Total Bilirubin 0.60 mg/dL N 0.2-1.0 Sodium [...] 86.9 N >60 54 Lipid Profile 04/07/2016 [facility] Triglycerides 95 mg/dL N 55 (Trig/Chol/HDL) [address] [place] [address] [phone] Cholesterol 161 mg/dL N 56 HDL Cholesterol 64.3 mg/dL N 57 LDL Cholesterol 78 mg/dL N 58 Comp Metabolic Panel 04/07/2016 [facility] Sodium 139 mmol/L N 133-145 [address] [place] [address] [phone] Potassium 3.7 mmol/L N 3.5-5.0 Chloride 105 [...] 97.7 N >60 59 Laboratory test 01/23/2016 [facility] Emporium 0.50 mmol/L Low 0.6-1.2 [address] [place] [address] [phone] TSH (Thyroid Stim Horm) 2.24 mcIU/mL N 0.34-5.60 61 Urinalysis Profile 01/23/2016 [facility] Urine Color Colorless N [address] [place] [address] [phone] Urine Appearance Clear N Urine Specific [place] 1.003 Low 1.010-1.030 Urine pH 7.0 N 5-9 Urine Urobilinogen Negative N Negative Urine Ketones Negative N Negative Urine Protein Negative N Negative Urine Leukocytes Negative N Negative Urine Blood Negative N Negative Urine Nitrite Negative N Negative Urine Bilirubin Negative N Negative Urine Glucose Negative N Negative Laboratory test 11/18/2015 [facility] Blood Urea 16 mg/dL N 6- [address] [place] [address] [phone] Creatinine 11/18/2015 [facility] Creatinine 0.80 mg/dL N 0.51- 0.[address] [place] [address] [phone] Egfr Non- 70.5 N >60 Egfr 90.7 N >60 62 Lipid Profile 07/08/2015 [facility] Triglycerides 87 mg/dL N 63 (Trig/Chol/HDL) [address] [place] [address] [phone] Cholesterol 174 mg/dL N 64 HDL Cholesterol 71.5 mg/dL N 65 LDL Cholesterol 85 mg/dL N 66 Comp Metabolic Panel 07/08/2015 [facility] Sodium 141 mmol/L N 133-145 [address] [place] [address] [phone] Potassium 4.1 mmol/L N 3.5-5.0 Chloride 108 [...] 93.6 N >60 67 Laboratory test 07/08/2015 [facility] Emporium 0.53 mmol/L Low 0.6-1.2 68 finding [address] [place] [address] [phone] CBC No Diff 07/08/2015 [facility] White Blood 7.8 10^3/uL N 3.5-10.8 101 [facility] [place] [place] [address] [phone] Red Blood Count 4.21 10^6/uL N 4.0-5.4 Hemoglobin 13.3 g/dL N 12.0-16.0 Hematocrit 40 % N 35-47 Mean Corpuscular Volume 94 fL N 80-97 Mean Corpuscular Hemoglobin 32 pg High 27-31 Mean Corpuscular HGB Conc 34 g/dL N 31-36 Red Cell Distribution Width 14 % N 10.5-15 Platelet Count 299 10^3/uL N 150-450 Mean Platelet Volume 8 um3 N 7.4-10.4 Laboratory test 07/08/2015 [facility] Alpha 1 125 mg/dL N 100 - [address] Antitrypsin A1a [address] [place] [address] [phone] Urinalysis 07/08/2015 [facility] Urine Color Straw N Profile [address] [place] [address] [phone] Urine Appearance Clear N Urine Specific [place] 1.003 Low 1.010-1.030 Urine pH 7.0 N [...] Present Abnormal Absent CBC No Diff 04/09/2015 [facility] White Blood 10.2 10^3/uL N 3.5-10.[address] [place] [address] [phone] Red Blood Count 3.90 10^6/uL Low 4.0-5.4 Hemoglobin 12.3 g/dL N 12.0-16.0 Hematocrit 36 % N 35-47 Mean Corpuscular Volume 93 fL N 80-97 Mean Corpuscular Hemoglobin 32 pg High 27-31 Mean Corpuscular HGB Conc 34 g/dL N 31-36 Red Cell Distribution Width 14 % N 10.5-15 Platelet Count 379 10^3/uL N 150-450 Mean Platelet Volume 8 um3 N 7.4-10.4 Urinalysis Profile 10/20/2014 [facility] Urine Color Straw N [address] [place] [address] [phone] Urine Appearance Clear N Urine Specific [place] 1.004 Low 1.010-1.030 Urine pH 7.0 N 5-9 Urine Urobilinogen Negative N Negative Urine Ketones Negative N Negative Urine Protein Negative N Negative Urine Leukocytes Negative N Negative Urine Blood Negative N Negative Urine Nitrite Negative N Negative Urine Bilirubin Negative N Negative Urine Glucose Negative N Negative Ua Routine 07/09/2014 [employer] [facility] Ua Specific [place] 1.000 Ua PH 6.0 Ua Color yellow Ua Appera clear Ua WBC neg Ua Protein neg Ua Glucose neg Ua Ketones neg Ua Bilirubin neg Ua Urobilinogen normal Ua Nitrite neg Ua Occult Blood neg Urine Culture And 06/24/2014 [facility] Urine Culture (SEE NOTE ) 70 [address] [place] [address] [phone] Lipid Profile 06/24/2014 [facility] Triglycerides 91 mg/dL N 71 (Trig/Chol/HDL) [address] [place] [address] [phone] Cholesterol 171 mg/dL N 72 HDL Cholesterol 62.6 mg/dL N 73 LDL Cholesterol 90 mg/dL N 74 Comp Metabolic Panel 06/24/2014 [facility] Sodium 140 mmol/L N 133-145 [address] [place] [address] [phone] Potassium 4.1 mmol/L N 3.5-5.0 Chloride 108 [...] 83.9 N >60 75 Laboratory test 06/24/2014 [facility] Emporium 0.47 mmol/L Low 0.6-1.2 finding [address] [place] [address] [phone] TSH (Thyroid Stimulating Horm) 2.63 IU/mL N 0.34-5.60 CBC Auto Diff 06/24/2014 [facility] White Blood 9.7 10^3/uL N 4.8-10.[address] [place] [address] [phone] Red Blood Count 4.44 10^6/uL N 4.0-5.4 [...] Cells % 0.1 N Urinalysis Profile 06/24/2014 [facility] Urine Color Straw N [address] [place] [address] [phone] Urine Appearance Clear N Urine Specific [place] 1.003 Low 1.010-1.030 Urine pH 7.0 N [...] Present Abnormal Absent Comp Metabolic Panel 01/27/2014 [facility] Sodium 140 mmol/L N 133-[address] [place] [address] [phone] Potassium 4.2 mmol/L N 3.5-5.0 Chloride 107 [...] N Urine Appearance Clear N Urine Specific [place] 1.005 Low 1.010-1.030 Urine pH 7.0 N [...] Cells % 0 N Urinalysis Profile 07/11/2013 [facility] Urine Color Yellow N [address] [place] [address] [phone] Urine Appearance Clear N Urine Specific [place] 1.006 Low 1.010-1.030 Urine Esterase Negative N Negative Urine Nitrate Negative N Negative Urine Urobilinogen Negative E.U./dL N Negative Urine Protein Negative mg/dL N Negative Urine pH 7.0 N 5-9 Urine Blood Negative N Negative Urine Ketones Negative mg/dL N Negative Urine Bilirubin Negative N Negative Urine Glucose Negative mg/dL N Negative Lipid Profile 07/10/2013 [facility] Triglycerides 87 mg/dL N 82, 83 (Trig/Chol/HDL) [address] [place] [address] [phone] Cholesterol 154 mg/dL N 84 HDL Cholesterol 56.3 mg/dL N 85 LDL Cholesterol 80 mg/dL N 86 Comp Metabolic Panel 07/10/2013 [facility] Sodium 139 mmol/L N 133-[address] [place] [address] [phone] Potassium 3.8 mmol/L N 3.7-5.6 Chloride 108 [...] 90.2 N >60 87 Laboratory test 07/10/2013 [facility] Emporium 0.75 mmol/L N 0.6-1.[address] [place] [address] [phone] TSH (Thyroid Stimulating Horm) 0.76 IU/mL N 0.34-5.60 88 CBC Auto Diff 07/10/2013 [facility] White Blood 9.2 10^3/uL N 4.8-10.[address] [place] [address] [phone] Red Blood Count 4.20 10^6/uL N 4.0-5.4 [...] Cells % 0 N Hepatitis B 07/10/2013 [facility] Hepatitis B Nonreactive N Nonreactive Forrest AB Titer [address] [place] [address] [phone] Hep B Surf AB Index 0.13 N 89 Laboratory 07/10/2013 [facility] Hepatitis C Nonreactive N Nonreactive test finding [address] [place] [address] [phone] Hepatitis B Core Total Ab Negative N Negative 90 CBC Auto Diff 12/28/2012 [facility] White Blood 8.3 10^3/uL 4.8-10.[address] Count [place], [place] [address] [phone] Red Blood Count 4.50 10^6/uL 4.0-5.4 Hemoglobin [...] Blood Cells % 0.1 Laboratory test 12/28/2012 [facility] TSH (Thyroid 1.00 0.34- 5.60 finding 101 [facility] Stimulating miu/[place] [address] [facility]) [phone] Urinalysis 12/28/2012 [facility] Urine Color Yellow W/Microscopic [address] [place] [address] [phone] Urine Appearance Clear Urine Specific [place] 1.008 Low 1.010-1.030 Urine Esterase Trace Abnormal [...] None Seen None Seen Lipid Profile 12/28/2012 [facility] Triglycerides 100 mg/dL 40-200 (Trig/Chol/HDL) [address] [place] [address] [phone] Cholesterol 193 mg/dL Less than 200 HDL Cholesterol 65 mg/dL High 40-60 91 Cholesterol/HDL Ratio 3.0 Average 1-4.44 LDL Cholesterol 108.0 High Less Than 100 92 Laboratory test 12/28/2012 [facility] Emporium 0.6 mmol/L 0.5- 1.5 finding [address] [place] [address] [phone] Comp Metabolic Panel 12/28/2012 [facility] Sodium 141 mmol/L 133-145 [address] [place] [address] [phone] Potassium 4.4 mmol/L 3.5-5.0 Chloride 108 mmol/L [...] Egfr 79.8 >60 93 Laboratory test 05/30/2012 [facility] Varicella-Zoster IgG Positive [address] [place] [address] [phone] Iron & Iron 05/30/2012 [facility] Iron 75 g/dL 28-[address] 70 [place] [address] [phone] Unsaturated Iron Binding 407 g/dL Total Iron Binding Capacity 482 g/dL High 250-450 % Iron Saturation 16 % 15-55 CBC Auto Diff 05/30/2012 [facility] White Blood 8.3 10^3/uL 4.8-10.[address] [place] [address] [phone] Red Blood Count 4.26 10^6/uL 4.0-5.4 Hemoglobin [...] Blood Cells % 0.1 Laboratory test 05/30/2012 [facility] Ferritin 23 ng/mL 11- 307 [address] [place] [address] [phone] Basic Metabolic 05/30/2012 [facility] Sodium 142 mmol/L 133- [address] [place] [address] [phone] Potassium 4.5 mmol/L 3.5-5.0 Chloride 109 mmol/L 101-111 Co2 Carbon Dioxide 28.0 mmol/L 22-32 Anion Gap 5.0 mmol/L 2-11 Glucose 98 mg/dL 70-100 Blood Urea Nitrogen 15 mg/dL 6-24 Creatinine 0.70 mg/dL 0.50-1.40 BUN/Creatinine Ratio 21.4 High 8-20 Calcium 10.2 mg/dL High 8.1-9.9 Egfr Non- 83.2 >60 Egfr 107.0 >60 96 Laboratory test 05/30/2012 [facility] Emporium 0.7 mmol/L 0.5- 1.[address] [place] [address] [phone] TSH (Thyroid Stimulating Horm) 0.54 miu/mL 0.34-5.60 97 Vitamin D, 25 05/30/2012 [facility] 25-Hydroxy Vitamin <4.0 ng/ mL Hydroxy [address] [address] [place] [address] [phone] 25-Hydroxy Vitamin D3 42 ng/mL 25-Hydroxy Vitamin D Total 42 ng/mL 98 CBC Auto Diff 11/21/2011 [facility] White Blood 6.1 10^3/uL 4.8-10.[address] [place] [address] [phone] Red Blood Count 4.22 10^6/uL 4.0-5.4 Hemoglobin [...] Blood Cells % 0 Laboratory test 11/21/2011 [facility] TSH (Thyroid 0.57 0.34- 5.[address] Stimulating MIU/[place] [address] Horm) [phone] Hemoglobin A1c 5.3 % Less than 6.0 99 Emporium 0.6 mmol/L 0.5-1.5 Comp Metabolic Panel 11/21/2011 [facility] Sodium 142 mmol/L 133-[address] [place], [place] [address] [phone] Potassium 4.4 mmol/L 3.5-5.0 Chloride 108 mmol/L [...] Egfr 91.7 >60 101 Laboratory test 11/21/2011 [facility] Ferritin 30 NG/ML 11- 307 finding 101 [place] [address] [phone] Lipid Profile 11/21/2011 [facility] Triglycerides 137 mg/dL 40-200 (Trig/Chol/HDL) [address] [place] [address] [phone] Cholesterol 190 mg/dL Less than 200 102 HDL Cholesterol 59 mg/dL 40-60 103 Cholesterol/HDL Ratio 3.2 AVERAGE 1-4.44 LDL Cholesterol 103.6 mg/dL High Less Than 100 CBC Auto Diff 07/27/2011 [facility] White Blood 7.0 CUMM 4.8- 10.[address] [place] [address] [phone] Red Cell Count 4.09 CUMM Low 4.2-5.4 [...] Basophils 0 0-0.2 104 Laboratory test 07/27/2011 [facility] Ferritin 28 NG/ML 11.0- [address] [place] [address] [phone] Iron & Iron 07/27/2011 [facility] Iron Total 97 g/dL 28- [address] [place] [address] [phone] Total Iron Binding Capacity 421 g/dL 250-450 [...] 10 NG/ML Low 11.0-307 finding Surgical 03/22/2011 [facility] Surgical [address] Pathology ----- <[place] [address] NOTE> [phone] Comp Metabolic 11/10/2010 [facility] Sodium 143 mmol/L 135- [address] [place] [address] [phone] Potassium 4.5 mmol/L 3.5-5.0 Chloride 108 mmol/L [...] > 60 109 CBC Auto Diff 11/10/2010 [facility] White Blood 7.8 CUMM 4.8- 10.[address] [place] [address] [phone] Red Cell Count 4.19 CUMM Low 4.2-5.4 [...] Basophils 0 0-0.2 110 Lipid Profile 11/10/2010 [facility] Triglyceride 115 mg/dL 40 -200 (Trig/Chol/HDL) [address] [place] [address] [phone] Cholesterol 179 mg/dL Less Than 200 111 High Density Lipoprotein 60 mg/dL 40-60 112 Cholesterol/HDL Ratio 2.98 AVERAGE 1-4.44 Low Density Lipoprotein 96 mg/dL Less Than 100 113 Laboratory test 11/10/2010 [facility] TSH 0.77 MIU/ML 0.34- 5.60 finding [address] [place] [address] [phone] Emporium 0.8 mmol/L 0.5-1.5 Urinalysis W/Microscopic 11/10/2010 [facility] Ua Color YELLOW Yellow [address] [place] [address] [phone] Appearance-Urine CLEAR Clear Specific [place]-Ur 1.004 Low 1.010-1.030 Esterase-Urine TRACE Abnormal Negative Nitrite NEGATIVE Negative Ukwoyrjqrxhv-Yd-CYS NEGATIVE Negative Protein-Urine NEGATIVE Negative PH-Urine 7.5 5-9 Blood-Urine NEGATIVE Negative Ketones-Urine NEGATIVE Negative Bilirubin-Ur NEGATIVE Negative Glucose-Urine NEGATIVE Negative WBC-Urine 0-2 0-5 RBC-Urine 0-2 0-2 Epith Cells-Ur MANY None Liver Function 01/07/2010 [facility] Total Protein 6.5 GM/DL 6.2-8.1 Panel [address] [place] [address] [phone] Albumin 4.1 GM/DL 3.2-5.2 Globulin 2.4 GM/DL 2-4 Albumin/Globulin Ratio 1.7 1-3 Bilirubin Total 0.7 mg/dL 0.4-1.5 114 Bilirubin Direct 0.1 mg/dL 0.1-0.5 Indirect Bilirubin 0.6 mg/dL 0.3-1.0 115 Alkaline Phosphatase 90 U/L 30-110 Alt (SGPT) 22 U/L 14-54 Ast (Sgot) 25 U/L 12-42 Lipid Profile 12/04/2009 [facility] Triglyceride 129 mg/dL 40 -200 (Trig/Chol/HDL) [address] [place] [address] [phone] Cholesterol 184 mg/dL Less Than 200 116 High Density Lipoprotein 59 mg/dL 40-60 117 Cholesterol/HDL Ratio 3.12 AVERAGE 1-4.44 Low Density Lipoprotein 99 mg/dL Less Than 100 118 Laboratory test finding 12/04/2009 [facility] Alt (SGPT) 20 U/L 14-54 [address] [place] [address] [phone] Ast (Sgot) 54 U/L High 12-42 Comp Metabolic Panel 10/21/2009 [facility] Sodium 142 mmol/L 135-145 [address] [place], [place] [address] [phone] Potassium 4.7 mmol/L 3.5-5.0 Chloride 106 mmol/L [...] 80.6 > 60 123 Lipid Profile 10/21/2009 [facility] Triglyceride 109 mg/dL 40 -200 (Trig/Chol/HDL) [address] [place] [address] [phone] Cholesterol 205 mg/dL High Less Than 200 124 High Density Lipoprotein 47 mg/dL 40-60 125 Cholesterol/HDL Ratio 4.36 AVERAGE 1-4.44 Low Density Lipoprotein 136 mg/dL High Less Than 100 126 Laboratory test 10/21/2009 [facility] TSH 1.09 MIU/ML 0.34- 5.60 finding [address] [place] [address] [phone] [place] 0.8 mmol/L 0.5-1.5 Urinalysis W/Microscopic 10/16/2009 [facility] Ua Color YELLOW Yellow [address] [place] [address] [phone] Appearance-Urine CLEAR Clear Specific [place]-Ur 1.005 Low 1.010-1.030 Esterase-Urine 1+ Abnormal Negative Nitrite NEGATIVE Negative Lxnqrdpxctil-Pv-ABA NEGATIVE Negative Protein-Urine NEGATIVE Negative PH-Urine 6.5 5-9 Blood-Urine NEGATIVE Negative Ketones-Urine NEGATIVE Negative Bilirubin-Ur NEGATIVE Negative Glucose-Urine NEGATIVE Negative WBC-Urine 5-10 Abnormal 0-5 RBC-Urine 0-5 0-2 Epith Cells-Ur RARE None Bacteria-Urine TRACE None Amorphous Sed-U TRACE None Urine Culture & 10/16/2009 [facility] Urine Culture NG [address] [place] [address] [phone] 1 SEE RESULT BELOW Name: KOKICRISTHIANCARLENE : [address]: Stewart Jung MD Acct: [id number] Unit: [id number] AGE: 72 Location: [place] [address] Re03/08/18 SEX: F Status: ADM IN SPEC: [id number] JOAQUINA: 03/08/18 [facility] [address]: Stef Peña MD REQ: [id number] RECD: 03/08/18 STATUS: TANG METCALF DR: Elif Luevano MD _ SOURCE: URINE SPDESC: ORDERED: Urine Culture Procedure Result Reported Site Urine Culture Final 03/09/18- 1208 ML No growth of clinically significant organisms * ML - Main Lab . END OF REPORT DEPARTMENT OF PATHOLOGY, [address] [place] [address] Jimbo Pratt M.D. Director [facility] # [id number] 2 Therapeutic target for the treatment of diabetes mellitus patients is <7% HBA1C, and in selective patients <6.0%. Please refer to [employer] diabetic care guidelines for further [...] dialysis) 9 Critical Result K:2.6 Called to [id number] at: 11:33:11 by:[id number] Read back by:[id number] 10 [facility] Severe Sepsis and Septic Shock Management [...] 130-159 High: 160-189 Very High: >189 18 [id number] 19 SEE RESULT BELOW Name: KOKICRISTHIANCARLENE : [address]: Elif Luevano MD Acct: [id number] Unit: [id number] AGE: 72 Location: [facility] Re03/05/18 SEX: F Status: REG REF SPEC: [id number] JOAQUINA: 03/05/[address] [facility] [address]: Elif Luevano MD REQ: [id number] RECD: 03/05/18 STATUS: COMP _ SOURCE: URINE SPDESC: ORDERED: Urine Culture Procedure Result Reported Site Urine Culture Final 03/06/18- 1606 ML No growth of clinically significant organisms * ML - Main Lab . END OF REPORT DEPARTMENT OF PATHOLOGY, [address] [place] [address] Jimbo Pratt M.D. Director [facility] # [id number] 20 *Ascorbic acid is present which may interfere with detection of blood. 21 F/U 22 SEE RESULTS BELOW [id number] EPIFIX 2X3 MESH TRANSFUSED 10/26/17 0750 23 [...] [address]: Elif Luevano MD Acct: [id number] Unit: [id number] AGE: 71 Location: [facility] Re03/24/17 SEX: F Status: REG REF SPEC: [id number] JOAQUINA: 03/24/17-[address]: Elif Luevano MD REQ: [id number] RECD: 03/24/17 STATUS: COMP _ SOURCE: URINE SPDESC: ORDERED: Urine Culture Procedure Result Reported Site Urine Culture Final 03/25/17- 1230 ML No Growth (<1,000 CFU/mL) * ML - MAIN LAB ([facility]) . END OF REPORT * ML=Testing performed at Main Lab DEPARTMENT OF PATHOLOGY, [address] [place] [address] Jimbo Pratt M.D. Director [facility] # [id number] 25 Because ethnic data is not always [...] This test has been modified from the wind up worker's instructions. Its performance characteristics were determined by [facility] in a manner consistent with CLIA requirements. This test has not been cleared or approved by the U.S. Food and Drug Administration. 35 ADDITIONAL INFORMATION This test has been modified from the wind up worker's instructions. Its performance characteristics were determined by [facility] in a manner consistent with CLIA requirements. This test has not been cleared or approved by the U.S. Food and Drug Administration. 36 ADDITIONAL INFORMATION This test has been modified from the wind up worker's instructions. Its performance characteristics were determined by [facility] in a manner consistent with CLIA [...] not reviewed by physician. Test Performed by: [address] [address] 38 ADDITIONAL INFORMATION This test has been modified from the wind up worker's instructions. Its performance characteristics were determined by [facility] in a manner consistent with CLIA requirements. This test has not been cleared or approved by the U.S. Food and Drug Administration. Test Performed by: [facility] - [address] [address] 39 Test Performed by: [address] [address] 40 ADDITIONAL INFORMATION This test has been modified from the wind up worker's instructions. Its performance characteristics were determined by [facility] in a manner consistent with CLIA requirements. This test has not been cleared or approved by the U.S. Food and Drug Administration. Test Performed by: [facility] - [address] [address] 41 ADDITIONAL INFORMATION This test was developed and its performance characteristics determined by [facility] in a manner consistent with CLIA requirements. This test has not been cleared or approved by the U.S. Food and Drug Administration. 42 Test Performed by: [address] [address] 43 Test Performed by: [address] [address] 44 Test Performed by: [address] [address] 45 REFERENCE VALUE 10.3 - 12.8 46 [...] 47 Arlin Kuo M.D. Test Performed by: [address] [address] 48 >100 to <200 pg/mL: likely compensated congestive heart failure (CHF) 200 to 400 pg/mL: likely moderate CHF >400 pg/mL: likely moderate to severe CHF 49 [facility] Severe Sepsis and Septic Shock Management Bundle Measure requires all lactic acids initially measuring >2.0 mmol/L be repeated. 50 SEE RESULT BELOW Name: CARLENE MONDRAGON : [address]: Vinay Chen MD Acct: [id number] Unit: [id number] AGE: 70 Location: ED Re06/09/16 SEX: F Status: DEP ER SPEC: [id number] JOAQUINA: 06/09/[address]: Vinay Chen MD REQ: [id number] RECD: 06/09/16 STATUS: TANG METCALF DR: Elif Luevano MD _ SOURCE: URINE SPDESC: ORDERED: Urine Culture Procedure Result Reported Site Urine Culture Final 06/10/16- 1614 ML No growth of clinically significant organisms * ML - MAIN LAB ([facility]) . END OF REPORT * ML=Testing performed at Main Lab DEPARTMENT OF PATHOLOGY, [address] [place] [address] Jimbo Pratt M.D. Director [facility] # [id number] 51 Acute inflammation: >10.00 52 99th percentile=0.04 ng/mL Troponin results at [facility] and [facility] are not interchangeable. 53 Because ethnic data [...] HOUR DUE IN June Test Performed by: [place] [address] Service Center Appraiser: Vinay Bojorquez II, M.D., Ph.D. 70 RUN DATE: 06/26/14 [facility] LAB LIVE PAGE 1 RUN TIME: [address] [place] [address] Specimen Inquiry Name: CARLENE MONDRAGON : [address]: Elif Luevano MD Acct: [id number] Unit: [id number] AGE: 68 Location: LAB Re06/24/14 SEX: F Status: REG REF SPEC: [id number] JOAQUINA: 06/24/14-[address]: Elif Luevano MD REQ: [id number] RECD: 06/24/14 STATUS: COMP _ SOURCE: URINE SPDESC: ORDERED: Urine Culture QUERIES: Provider Requisition # [id number] Procedure Result Verified Site Urine Culture Final 06/26/14- 1641 ML Organism 1 NORMAL TITO [place] Count 10-25,000 (Moderate) CFU/ML * ML - MAIN LAB ([facility]) . END OF REPORT * ML=Testing performed at Main Lab DEPARTMENT OF PATHOLOGY, [address] [place] [address] Jimbo Pratt M.D. Director [facility] # [id number] 71 Desirable <150 Borderline high 150-199 High [...] <15 (or dialysis) 77 RUN DATE: 01/22/14 [facility] LAB LIVE PAGE 1 RUN TIME: [address] [place] [address] Specimen Inquiry Name: CARLENE MONDRAGON Mo : [address]: Filiberto Kc COMBINE MECHANIC Acct: [id number] Unit: [id number] AGE: 68 Location: [facility] Re01/20/14 SEX: F Status: REG REF SPEC: [id number] JOAQUINA: 01/20/[address] [facility] [address]: Filiberto Kc COMBINE MECHANIC REQ: [id number] RECD: 01/20/14 STATUS: TANG METCALF DR: Elif Tijerina MD _ SOURCE: URINE SPDESC: ORDERED: Urine Culture QUERIES: Medent Number [id number] Procedure Result Verified Site Urine Culture Final 01/22/14- 0913 ML Organism 1 NORMAL TITO [place] Count 25-50,000 (Moderate) CFU/ML END OF REPORT * ML=Testing performed at Main Lab DEPARTMENT OF PATHOLOGY, [address] [place] [address] Jimbo Pratt M.D. Director [facility] # [id number] 78 Potassium reference range changed effective 12/22/13 [...] <15 (or dialysis) 80 RUN DATE: 01/25/14 [facility] LAB LIVE PAGE 1 RUN TIME: [address] [place] [address] Specimen Inquiry Name: CARLENE MONDRAGON Mo : [address]: Filiberto Kc NP Acct: [id number] Unit: [id number] AGE: 68 Location: [facility] Re01/20/14 SEX: F Status: REG REF SPEC: [id number] JOAQUINA: 01/20/[address] [facility] [address]: Filiberto Kc NP REQ: [id number] RECD: 01/20/14 STATUS: TANG METCALF DR: Elif Tijerina MD _ SOURCE: BLOOD,VENO SPDESC: ORDERED: Blood Cult QUERIES: Medent Number [id number] Procedure Result Verified Site Aerobic Culture Bottle Final 01/25/14- 1450 ML No Growth Day 5 Anaerobic Culture Bottle Final 01/25/14- 1450 ML No Growth Day 5 END OF REPORT * ML=Testing performed at Main Lab DEPARTMENT OF PATHOLOGY, [address] [place] [address] Jimbo Pratt M.D. Director [facility] # [id number] 81 WITH MICROSCOPIC 82 FASTING 83 Desirable [...] the CDC guidelines. 90 Test Performed by: [place] [address] Service Center Appraiser: Austin Vega III, M.D. 91 HDL Interpretation: [...] REFERENCE VALUE -- Negative Test Performed by: [address] [address] Service Center Appraiser: Austin Vega III, M.D. 95 FASTING 96 [...] normal population are 25-80 Test Performed by: [facility] [address] [address] Service Center Appraiser: Austin Vega III, M.D. 99 Therapeutic target for the treatment of diabetes Mellitus patients is <7% HBA1C, and in selective patients <6.0%.Please refer to [employer] Association Diabetic care guidelines for further [...] % 10 ---- 6 RUN DATE: 03/24/11 [facility] NMI LIVE PAGE 1 RUN TIME: 1239 Specimen Inquiry RUN USER: INTERFACE -- Name: CARLENE MONDRAGON [facility]#: [id number] Status: REG REF Re03/22/11 Age/Sex: 65/F Unit#: [id number] Location: [facility] : [birth year] -- Specimen: [id number] SOUT Spec Date: 03/22/[address]: Paulo sevilla MD Spec Type: SURGICAL P Received: 03/23/11-4532 Copies to: Elif larsen MD SPECIMEN 1) [...] 1237 -- -- DEPARTMENT OF PATHOLOGY, [address] [place] [address] [facility] Permit #[id number] Jimbo Pratt M.D. Director Jonna Song M.D. Die Set Up Worker wagner -- 10 Anion gap measurement may be of limited value in the 7 presence of any alkalosis, especially in a combined acid base disorder. . 10 A metabolite of Naproxen, O-desmethylnaproxen, has been 8 shown to interfere with the [place] method for measuring total bilirubin. Samples from [...] been 4 shown to interfere with the [place] method for measuring total bilirubin. Samples from [...] change was based on recommendations from the [employer]. 12 Please note change in [...] 7 Procedures Date Code Description Status 11/02/2017 48974 Removal Devitalization Tissue Wound Less Than Equal 20 Completed Square CM 10/26/2017 23451 Application Skin Substitute Graft Trunk,Arms Lets Up Completed To 100 SQ CM 10/12/2017 30930 Removal Devitalized Tissue Wound Greater Than 20 Completed Square CM 10/12/2017 07065 Removal Devitalization Tissue Wound Less Than Equal 20 Completed Square CM 10/05/2017 46204 Removal Devitalized Tissue Wound Greater Than 20 Completed Square CM 10/05/2017 09134 Removal Devitalization Tissue Wound Less Than Equal 20 Completed Square CM 05/31/2017 12460 Removal Devitalization Tissue Wound Less Than Equal 20 Completed Square CM 05/24/2017 03676 Removal Devitalization Tissue Wound Less Than Equal 20 Completed Square CM 05/17/2017 66137 Removal Devitalization Tissue Wound Less Than Equal 20 Completed Square CM 05/10/2017 70378 Removal Devitalization Tissue Wound Less Than Equal 20 Completed Square CM 05/08/2017 49453059 Mammogram Completed 05/03/2017 07179 Removal Devitalization Tissue Wound Less Than Equal 20 Completed Square CM 12/23/2016 01677 EKG Tracing & Interpretation Completed 07/05/2016 [id number] Colonoscopy Completed 07/08/2015 97090706 Mammogram Completed 02/19/2015 27724 Repair Hernia Umbilical > 5 Yrs, Reducible Completed 02/02/2015 51662 EKG Tracing & Interpretation Completed 06/17/2014 05273 Diffusing Capacity Completed 06/17/2014 04734 Pulmonary Function><Bronchodil Completed 02/14/2014 15267227 Mammogram Completed 04/04/2013 634298270 Bone Mineral Density Test Completed 12/28/2012 09829841 Mammogram Completed 11/29/2012 88905 EKG Tracing & Interpretation Completed 12/20/2011 95087293 Mammogram Completed 03/22/2011 30763948 Colonoscopy Completed 12/16/2010 09746404 Mammogram Completed 07/09/2010 45685 Noninvasive Ear Or Pulse Oximetry For Oxygen Completed Saturation 05/04/2010 31738 Noninvasive Ear Or Pulse Oximetry For Oxygen Completed Saturation 04/27/2010 50825 Noninvasive Ear Or Pulse Oximetry For Oxygen Completed Saturation 04/19/2010 02117 Noninvasive Ear Or Pulse Oximetry For Oxygen Completed Saturation 04/14/2010 97249 Inhalation TX For Acute Airway Obstruction Completed W/Nebulizer/Inhaler 11/17/2009 997052122 Bone Mineral Density Test Completed 11/17/2009 25044301 Mammogram Completed 10/16/2009 73817 EKG Tracing & Interpretation Completed 10/08/2007 06629 EKG Tracing & Interpretation Completed 10/08/2007 81757 EKG Tracing & Interpretation Completed 10/19/2001 53978723 Colonoscopy Completed Encounters Type Date Location Provider Dx Diagnosis Office Visit 11/16/2017 Wound [facility] Center Juan Conklin S89.81xD Other specified 8:00a AT [facility] Mino Freire injuries of right lower leg, subs encntr S81.801D Unspecified open wound, right lower leg, subs encntr L03.115 Cellulitis of right lower limb R60.0 Localized edema Office Visit 11/09/2017 8:00a Wound Care Juan Conklin S81.801A Unspecified open Center AT [facility] Mino Freire wound, right lower leg, initial encounter L03.115 Cellulitis of right lower limb S89.81xA Other specified injuries of right lower leg, init encntr I10 Essential (primary) hypertension Office Visit 11/09/2017 10:00a [facility] Internal Elif I10 Essential ( primary) Medicine - Mino Luevano hypertension [place] S51.811A Laceration w/o foreign body of right forearm, init encntr Office Visit 10/20/2017 8:30a Wound Care Marcio Ramos S81.801A Unspecified open Center AT [facility] MD Michael, wound, right lower FACS leg, initial encounter E78.00 Pure hypercholesterolemia, unspecified F31.9 Bipolar disorder, unspecified F17.211 Nicotine dependence, cigarettes, in remission I10 Essential (primary) hypertension E66.9 Obesity, unspecified J44.9 Chronic obstructive pulmonary disease, unspecified D50.9 Iron deficiency anemia, unspecified E03.9 Hypothyroidism, unspecified Z99.81 Dependence on supplemental oxygen Office Visit 10/19/2017 7:40a [facility] Internal [place]if I10 Essential ( primary) Juany Luevano M.D. hypertension [place] F31.9 Bipolar disorder, unspecified Z79.899 Other oysterman (current) drug therapy S81.801D Unspecified open wound, right lower leg, subs encntr Office Visit 10/05/2017 12:45p Wound Care Juan FelizSuzette S81.801A Unspecified open Center AT [facility] Mino Freire wound, right lower leg, initial encounter E78.00 Pure hypercholesterolemia, unspecified F31.9 Bipolar disorder, unspecified F17.211 Nicotine dependence, cigarettes, in remission Office Visit 09/18/2017 8:40a [facility] Internal Elif I10 Essential ( primary) Juany Luevano M.D. hypertension [place] Office Visit 08/17/2017 7:40a [facility] Internal Elif I10 Essential ( primary) Juany Luevano M.D. hypertension [place] R60.0 Localized edema Office Visit 07/11/2017 2:20p [facility] Internal [place] R60.0 Localized edema Mino Vergara Z68.30 Body mass index (BMI) 30.0-30.9, adult Office Visit 06/07/2017 Wound Care Center Chuck Rose S81.812A Laceration 8:30a AT [facility] MD Crow without foreign body, left lower leg, init encntr Office Visit 06/06/2017 Pulmonology And Lydia Mayen, J98.4 Other disorders 9:00a Sleep Services Of of lung [facility] E66.09 Other obesity due to excess calories J44.9 Chronic obstructive pulmonary disease, unspecified Office Visit 05/05/2017 10:20a [facility] Internal [place]if R60.0 Localized edema Juany Luevano M.D. [place] Office Visit 05/03/2017 9:00a Wound Care Chuck Rose S81.812A Laceration Center AT [facility] MD Crow without foreign body, left lower leg, init encntr Office Visit 04/17/2017 2:20p [facility] Internal Elif R60.0 Localized edema Mino Vergara L03.115 Cellulitis of right lower limb Office Visit 04/10/2017 11:40a [facility] Internal Elif L03.115 Cellulitis of Juany Luevano M.D. right lower limb [place] L60.2 Onychogryphosis Office Visit 04/06/2017 [facility] Internal Filiberto Kc, MARTINA L03.115 Cellulitis of right 3:00p Medicine - lower limb [place] Office Visit 12/23/2016 [facility] Internal Elif Z01.818 Encounter for other 3:20p Juany Luevano M.D. preprocedural [place] examination I10 Essential (primary) hypertension D68.9 Coagulation defect, unspecified H26.9 Unspecified cataract J44.9 Chronic obstructive pulmonary disease, unspecified Office Visit 09/20/2016 3:20p [facility] Internal Eilf R60.0 Localized edema Juany Luevano M.D. [place] Office Visit 08/30/2016 11:00a [facility] Internal Elif L97.801 Non-prs chr Juany Luevano M.D. ulcer oth prt [place] unsp low leg lmt to brkdwn skin R60.0 Localized edema Office Visit 07/21/2016 8:40a [facility] Internal [place] D68.9 Coagulation Juany Luevano M.D. defect, [place] unspecified R60.0 Localized edema I10 Essential (primary) hypertension H02.534 Eyelid retraction left upper eyelid Office Visit 06/14/2016 2:00p [facility] Internal [place]if D64.9 Anemia, Juany Luevano M.D. unspecified [place] D68.9 Coagulation defect, unspecified Office Visit 06/06/2016 8:30a Pulmonology And Lydia R91.8 Other nonspecific Sleep Services Of MD Tiarra abnormal finding [facility] of lung field J44.9 Chronic obstructive pulmonary disease, unspecified Office Visit 05/13/2016 2:20p [facility] [place] R91.8 Other nonspecific Juany Luevano M.D. abnormal finding [place] of lung field R60.0 Localized edema Office Visit 04/18/2016 9:00a [facility] Internal [place] R74.0 Nonspec elev of Juany Luevano M.D. levels of [place] transamns & lactic acid dehydrgnse Z12.11 Encounter for screening for malignant neoplasm of colon R91.8 Other nonspecific abnormal finding of lung field I10 Essential (primary) hypertension Office Visit 02/26/2016 7:30a Pulmonology And Lydia J98.4 Other disorders Sleep Services Of MD Tiarra of lung [facility] J44.9 Chronic obstructive pulmonary disease, unspecified Z87.891 Personal history of nicotine dependence Office Visit 02/11/2016 4:00p [facility] Internal [place] H61.21 Impacted Juany Luevano M.D. cerumen, right [place] ear Office Visit 02/08/2016 3:20p [facility] [place] Z00.00 Encntr for Juany Luevano M.D. general adult [place] medical exam w/o abnormal findings R91.1 Solitary pulmonary nodule Z12.11 Encounter for screening for malignant neoplasm of colon E78.5 Hyperlipidemia, unspecified I10 Essential (primary) hypertension F31.89 Other bipolar disorder Z11.1 Encounter for screening for respiratory tuberculosis Office Visit 11/19/2015 [facility] Internal [place] S81.002D Unspecified open 10:00a Juany Luevano M.D. wound, left knee, [place] subsequent encounter F31.61 Bipolar disorder, current episode mixed, mild Z79.899 Other oysterman (current) drug therapy R91.1 Solitary pulmonary nodule Office Visit 11/02/2015 [facility] Jagjit Barrientos S81.002A Unspecified open 2:40p Juany Dunaway M.D. wound, left knee, [place] initial encounter Office Visit 10/13/2015 [facility] Elif R23.8 Other skin 3:20p Juany Luevano M.D. changes [place] Office Visit 09/29/2015 [facility] Elif H00.013 Hordeolum 10:40a Juany Luevano M.D. externum right [place] eye, unspecified eyelid S81.801A Unspecified open wound, right lower leg, initial encounter R23.8 Other skin changes Office Visit 07/27/2015 10:20a [facility] Elif I10 Essential ( primary) Juany Luevano M.D. hypertension [place] R31.9 Hematuria, unspecified Z87.891 Personal history of nicotine dependence Office Visit 04/09/2015 4:00p [facility] Elif R23.3 Spontaneous Juany Luevano M.D. ecchymoses [place] Office Visit 10/20/2014 10:00a [facility] Elif 496 COPD Airway Juany Luevano M.D. Obstruction [place] Chronic Not Class Elsewhere 599.70 Hematuria, Unspecified Office Visit 07/25/2014 9:00a [facility] Elif 496 COPD Airway Juany Luevano M.D. Obstruction [place] Chronic Not Class Elsewhere 401.1 Hypertension Benign Office Visit 07/09/2014 10:20a [facility] Elif 401.1 Hypertension Juany Luevano M.D. Benign [place] 599.70 Hematuria, Unspecified 496 COPD Airway Obstruction Chronic Not Class Elsewhere Office Visit 01/27/2014 10:00a [facility] Filiberto Yamini, 780.60 Fever, Unspecified Medicine - COMBINE MECHANIC [place] 794.8 Liver Study Abnormal V03.82 Streptococcus Pneumoniae Vaccination Spec Other Office Visit 01/20/2014 1:30p [facility] Filiberto Yamini, 786.05 Shortness Of Medicine - COMBINE MECHANIC Breath [place] 780.60 Fever, Unspecified Office Visit 01/10/2014 1:40p [facility] Elif V70.0 Examination Juany Luevano M.D. [facility] Routine AT Health Care Facility 272.2 Hyperlipidemia Mixed 401.1 Hypertension Benign 296.7 Bipolar I Disorder Current NOS V76.12 Screening Mammogram Malig Elvis Other 496 COPD Airway Obstruction Chronic Not Class Elsewhere 486 Pneumonia Organism Unspec 782.3 Edema v04.81 Need For Prophylactic Vaccination & Inoculation/Influenza 715.04 Osteoarthrosis Generalized Hand Office Visit 11/28/2013 1:20p [facility] Elif 786.2 Cough Juany Luevano M.D. [place] Office Visit 07/02/2013 11:20a [facility] Elif 401.1 Hypertension Juany Luevano M.D. Benign [place] 272.2 Hyperlipidemia Mixed 296.7 Bipolar I Disorder Current NOS 790.4 Transaminase Or Lactic Acid Dehydrogenase Elevation Nonspec Office Visit 04/01/2013 10:00a [facility] Elif 401.1 Stanley Luevano M.D. Benign [place] 786.2 Cough 272.2 Hyperlipidemia Mixed Office Visit 11/29/2012 10:20a [facility] Elif V70.0 Examination Juany Luevano M.D. [facility] Routine AT Health Care Facility 401.1 Hypertension Benign 272.2 Hyperlipidemia Mixed 296.7 Bipolar I Disorder Current NOS V76.10 Screening For Malignant Neoplasm Breast V04.81 Need For Prophylactic Vaccination & Inoculation/Influenza Office Visit 10/05/2012 3:20p [facility] Elif 782.3 Edema Juany Luevano M.D. [place] Office Visit 09/19/2012 10:40a [facility] Shana Dela Cruz, 682.6 Cellulitis & Medicine - N.P. Abscess Leg Except [place] Foot Office Visit 09/07/2012 10:40a [facility] Shana Dela Cruz, 682.6 Cellulitis & Medicine - N.P. Abscess Leg Except [place] Foot Office Visit 06/04/2012 9:20a [facility] Elif 401.1 Hypertension Juany Luevano M.D. Benign Cathy 496 COPD Airway Obstruction Chronic Not Class Elsewhere Office Visit 04/03/2012 10:00a [facility] Elif 401.1 Hypertension Juany Luevano M.D. Benign [place] 296.7 Bipolar I Disorder Current NOS Office Visit 11/28/2011 10:20a [facility] Elif V70.0 Examination Juany Luevano M.D. [facility] Routine AT Health Care Facility 496 COPD Airway Obstruction Chronic Not Class Elsewhere 401.1 Hypertension Benign V76.10 Screening For Malignant Neoplasm Breast 280.8 Iron Deficiency Anemia Other Spec 244.9 Hypothyroidism Other Unspec 272.2 Hyperlipidemia Mixed V04.81 Need For Prophylactic Vaccination & Inoculation/Influenza Office Visit 04/25/2011 11:40a [facility] Elif 401.1 Hypertension Juany Luevano M.D. Benign [place] 496 COPD Airway Obstruction Chronic Not Class Elsewhere 280.8 Iron Deficiency Anemia Other Spec V06.1 Ghbglqgpyt-Alodgwx-Ncfdjhhk Combined (DTaP) Office Visit 07/09/2010 9:00a DO Not Use Elif 496 COPD Airway Mady Luevano M.D. Obstruction Chronic Not Class Elsewhere 401.1 Hypertension Benign 272.0 Hypercholesterolemia Pure Office Visit 05/04/2010 DO Not Use [place] 496 COPD Airway 2:30p Mady Luevano M.D. Obstruction Chronic Not Class Elsewhere Office Visit 04/27/2010 DO Not Use Shana Dela Cruz 496 COPD Airway 9:30a [facility] [facility] Obstruction Chronic Not Class Elsewhere Office [...] DO Not Use Denise, 401.1 Hypertension 8:45a [facility]Cathy Castellanos M.D. Benign 272.0 Hypercholesterolemia Pure 244.9 Hypothyroidism Other Unspec 496 COPD Airway Obstruction Chronic Not Class Elsewhere Plan of Treatment Future Appointment(s):03/15/2018 9:20 am - Elif Luevano M.D. at [facility] - [facility]32/17/2019 9:00 am - Lydia Mayen MD at [facility]11/09/2017 - Elif Luevano M.D.I10 Essential (primary) hypertensionComments:Your blood pressure is fine. Continue the same medication Blood tests due this winter - prior to next visitFollow up: .811A Laceration without foreign body of right forearm, initial encounter
[2018-03-21 12:14] LABS: Influenza A Molecular NEGATIVE (Negative); Influenza B Molecular NEGATIVE (Negative)
[2018-03-21 12:18] LABS: Albumin 3.9 g/dL (3.2-5.2); Albumin/Globulin Ratio 1.2 (1-3); BUN/Creatinine Ratio 22.1 (8-20); C Reactive Protein 4.58 mg/L (<8.01); Calcium 10.5 mg/dL (8.6-10.3); EGFR African American 31.3 (>60); EGFR Non-African American 25.8 (>60); Globulin 3.3 g/dL (2-4); Total Bilirubin 0.7 mg/dL (0.2-1.0); Total Protein 7.2 g/dL (6.4-8.9)
[2018-03-21 12:25] LABS: Activated Partial Thrombo Time 20.1 seconds (26.0-36.3); INR 1.37 (0.77-1.02)
[2018-03-21 12:31] LABS: ABS Basophils 0.1 10^3/ul (0-0.2); ABS Eosinophils 0.3 10^3/ul (0-0.6); ABS Lymphocytes 1.4 10^3/ul (1.0-4.8); ABS Monocytes 0.4 10^3/ul (0-0.8); ABS Neutrophils 12.1 10^3/ul (1.5-7.7); ABS Nucleated RBC 0 10^3/ul; Eosinophil % 2.4 %; Lymphocyte % 9.7 %; Nucleated Red Blood Cells % 0
[2018-03-21] MEDS ORDERED: NS 0.9% 250 ML* 0 ML ONE (12:32)
[2018-03-21 12:54] LABS: Urine Appearance Cloudy; Urine Bacteria Absent (Absent); Urine Bilirubin Negative (Negative); Urine Blood 2+ (Negative); Urine Color Yellow; Urine Glucose Negative (Negative); Urine Ketones Negative (Negative); Urine Nitrite Negative (Negative); Urine Protein Negative (Negative); Urine Red Blood Cell 1+(3-5/hpf) (Absent); Urine Specific Gravity 1.005 (1.010-1.030); Urine Squamous Epithelial Cell Present (Absent); Urine Urobilinogen Negative (Negative); Urine White Blood Cell Trace(0-5/hpf) (Absent)
--- NOTE | 2018-03-21 12:57 | HP ---
History of Present Illness - History of Present Illness Reason for Visit: Septic Shock History of Present Illness: INTENSIVE CARE UNIT INITIAL CONSULTATION 72 yo F with hx.o developmental delay, poor-historian, obesity, sleep apnea, nocturnal O2 requirement of 2LPM with recent hospitalization and tx for PNA referred for ICU consultation due to concerns of hypotension and possible septic shock. Patient's friend is at the bedside but since the patient lives at [facility], she is not aware of what precipitated this ER visit. History was obtained through chart review. Patient was brought in by [email or web address] ambulance presented to the ED after being found to be unresponsive at [facility] the morning of 03/21/18. Per triage note, " Pt presents from [facility] via EMS, ALS for being found unresponsive. Patient is awake and alert upon my evaluation and was noted to be so on arrival. Patient was noted to be hypotensive for EMS and on arrival. Pt recently diagnosed with pneumonia and was admitted here and discharged to [facility] from a intermediate. Patient denies any fever, chest pain, abdominal pain. 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 - Developmental delay Gastrointestinal: GERD Heme/Onc: Anemia NOS Psych: Bipolar Infectious Disease: Other - recently treated for Pneumonia Endocrine: Hypothyroidism - Past Surgical History Past Surgical History: Hysterectomy, Hernia Repair - 02/19/2015 - Past Family History Family History: Other - not contributory - Past Social History Alcohol: None Drugs: None Lives: Other - intermediate Review of Systems - Review of Systems Cardiovascular: Positive: Palpitations, Light Headedness - Medications/Allergies Allergies/Adverse Reactions: Allergies Allergy/AdvReac Type Severity Reaction Status Date / Time No Known Allergies Allergy Verified 04/30/17 11:22 Medications: Current Medications Sodium Chloride (Ns 0.9% 1000 Ml*) 2,000 mls @ 1,000 mls/hr IV ED ONCE ONE Stop: 03/21/18 13:41 Last Admin: 03/21/18 11:51 Dose: 1,000 mls/hr Vancomycin HCl 1,000 mg/ (Sodium Chloride) 250 mls @ 166.667 mls/hr IVPB ONCE ONE Stop: 03/21/18 13:12 Last Admin: 03/21/18 12:42 Dose: 166.667 mls/hr Pharmacy Consult (Zosyn Per Pharmacy*) 1 note FOLLOW UP .ZOSYN PER PHARMACY AMI Exam - Exam Vital Signs: Vital Signs (72 hours) 03/21/18 03/21/18 03/21/18 11:30 11:37 11:39 Temperature 97.1 F Pulse Rate 57 57 Respiratory 22 18 Rate Blood Pressure 88/53 (mmHg) O2 Sat by Pulse 93 93 94 Oximetry 03/21/18 03/21/18 03/21/18 11:46 11:56 12:00 Temperature Pulse Rate 56 52 52 Respiratory 15 15 19 Rate Blood Pressure 78/49 (mmHg) O2 Sat by Pulse 94 81 95 Oximetry 03/21/18 03/21/18 03/21/18 12:04 12:16 12:35 Temperature Pulse Rate 54 65 69 Respiratory 18 21 14 Rate Blood Pressure 86/49 99/53 96/54 (mmHg) O2 Sat by Pulse 94 91 98 Oximetry 03/21/18 12:50 Temperature Pulse Rate 67 Respiratory 19 Rate Blood Pressure 114/63 (mmHg) O2 Sat by Pulse 95 Oximetry General: Alert, No acute distress HEENT: Atraumatic, PERRLA, Other - mucous membranes are dry Lungs: Clear to auscultation, Normal air movement Cardiovascular: Regular rate, Normal S1, Normal S2 Abdomen: Soft, No tenderness, No hepatospenomegaly Extremities: No clubbing, No cyanosis, No edema Neurological: Other - no focal neuro deficits Assessment/Plan - Assessment/Plan Assessment: 72 yo F with hx.o developmental delay, poor-historian, obesity, sleep apnea, nocturnal O2 requirement of 2LPM with recent hospitalization and tx for PNA referred for ICU consultation due to concerns of hypotension and possible septic shock # Hypotension # PNA # Bradycardia # ST changes on EKG # LANEY # Leukocytosis # Acute respiratory distress # Thrombocytosis Plan: # Hypotension responsive to fluids. Status post 2L NS so far. ddx: due to hypovolemia vs. septic shock # PNA - BCX x 2 - On broad spectrum antibiotics- Zosyn and Vancomycin - lactic acid 1.2 - TTE 03/21/18 reviewed. I do have suspicion for PE based on some of the findings on ALISIA- depressed RV function, dilated IVC. Although RV size is normal. - pending VQ scan - recommend B/L duplex to evaluated for DVTs - recommend treating for possible VTE if moderate to high degree of suspicion if no contraindicatiion # Bradycardia resolved noted to have arrhythmias upon last visit. Cardiology was planning for an event monitor as per last visit's D/C summary - Cardiology recs recommended # ST changes on EKG evaluated by cardiology Echo not notable for RWMA Trop x 1 WNL -recommend re-checking trop in 6 hours if concern for ACS # LANEY likely pre-renal anticipate improvement with fluid hydration -recommend re-checking BMP in 2 hours post hydration to evaluate for electrolyte derrangements (ie hyperkalemia) # Leukocytosis reactive vs infectious etiology # Acute respiratory distress respiratory status optimized on 4LPM of supplemental O2 b/l 2LPM nocturnal -weane O2 to target SPO2 >/=92% # Thrombocytosis likely reactive Patient's clinical improvement and current condition does not warrant an ICU stay. If any change in status, please, re-consult Prognosis: Guarded Thank you for allowing me to participate in this patient's care and management
--- NOTE | 2018-03-21 13:10 | ECHO ---
Patient: ROSALIA MONDRAGON [facility] Rec#: [id number] : 1945 Date: 03/21/2018 Age: 72y Height: 157 cm / 61.8 in Weight: 63.5 kg / 140.0 lbs Sex: F BSA: 1.64 Room#: ED 14 Admit Date#: 03/21/2018 Type: Inpatient Referring: Gretchen Sutton Reading: Tita Torres MD Hands And Dial Inspector: Any Robledo RDCS,RDMS CC: Elif Luevano MD Transthoracic Echocardiogram Indication: SYNCOPE BP: 99/53 HR: 79 Rhythm: NSR Findings History: COPD, HTN, HLD Technical Comments: The study quality is fair. Left Ventricle: The left ventricular chamber size is mildly dilated. There is no left ventricular hypertrophy. Global left ventricular wall motion and contractility are within normal limits. The estimated ejection fraction is 55-60%. There is an E to A reversal in the mitral valve flow pattern suggestive of diastolic dysfunction. Left Atrium: The left atrium is mildly dilated. Right Ventricle: The right ventricular cavity size is normal. The right ventricular global systolic function is low normal. Right Atrium: The right atrial cavity size is normal. Aortic Valve: The aortic valve is trileaflet. The aortic valve leaflets are mildly thickened. There is aortic annular calcification. There is no evidence of aortic regurgitation. There is no evidence of aortic stenosis. Mitral Valve: The mitral valve leaflets are mildly thickened. There is trace to mild mitral regurgitation. There is no evidence of mitral stenosis. Tricuspid Valve: The tricuspid valve leaflets are normal. There is mild tricuspid regurgitation. No pulmonary hypertension is noted. Pulmonic Valve: The pulmonic valve structure is not well visualized. There is mild pulmonic regurgitation. Pericardium: There is no significant pericardial effusion. Aorta: The aortic root appears normal. There is no dilatation of the aortic arch. Pulmonary Artery: The main pulmonary artery is not well visualized. Venous: The inferior vena cava is dilated. There is less than 50% respiratory change in the inferior vena cava dimension. Conclusions The left ventricular chamber size is mildly dilated. Global left ventricular wall motion and contractility are within normal limits. The estimated ejection fraction is 55-60%. The right ventricular global systolic function is low normal. The aortic valve leaflets are mildly thickened with normal function. There is trace to mild mitral regurgitation. There is mild tricuspid regurgitation. Compared with recent echo of 02/2118, ventricular and valvular function are not significantly changed. LV chamber dilatation newly noted. Measurements Name Value Normal Range RVIDd (AP) 2D 1.9 cm (0.9 - 2.6) RVDdMajor (2D) 2 cm (2.2 - 4.4) RAd ISD 4CH 4.9 cm (3.4 - 4.9) RA (A4C)W 3.4 cm (2.9 - 4.6) IVSd (2D) 0.8 cm (0.6 - 1) LVPWd (2D) 1 cm (0.6 - 1) LVIDd (2D) 5.5 cm (3.6 - 5.4) LVIDs (2D) 3.9 cm - LV FS (2D) 30 % (25 - 45) Aortic Annulus 2.1 cm (1.4 - 2.6) Ao root diameter (2D) 2.6 cm (2.1 - 3.5) Ascending Ao 2.9 cm (2.1 - 3.4) Aortic arch 3 cm (1.8 - 3.4) LA dimension (AP) 2D 4.6 cm (2.3 - 3.8) LAd ISD 4CH 5.8 cm (2.9 - 5.3) LA ISD 4CH W 4.4 cm (2.5 - 4.5) Name Value Normal Range LA ESV BP (A/L) index 39 ml/m2 - Name Value Normal Range MV E-wave Vmax 0.9 m/sec - MV deceleration time 180 msec - MV A-wave Vmax 1 m/sec - MV E:A ratio 0.9 ratio - P. vein S-wave Vmax 0.7 m/sec - P. vein D-wave Vmax 0.5 m/sec - P. vein S:D Vmax ratio 1.5 ratio - P. vein A-wave duration 121 msec - LV septal e' Vmax 0.5 m/sec - LV lateral e' Vmax 0.8 m/sec - LV E:e' septal ratio 16 ratio - LV E:e' lateral ratio 11 ratio - Name Value Normal Range AV Vmax 1.2 m/sec - AV VTI 25 cm - AV peak gradient 6 mmHg - AV mean gradient 3 mmHg - LVOT Vmax 1.2 m/sec - LVOT VTI 23 cm - LVOT peak gradient 6 mmHg - LVOT mean gradient 3 mmHg - OLLIE Vmax 0.6 m/sec - Name Value Normal Range TR Vmax 2.4 m/sec - TR peak gradient 23 mmHg - RAP 3 mmHg - RVSP 26 mmHg - IVC diameter 2.5 cm - Name Value Normal Range PV Vmax 0.8 m/sec - PV peak gradient 2.6 mmHg -
[2018-03-21] MEDS ORDERED: Acetaminophen TAB* 325 MG PO PRN (14:35)
[2018-03-21] MEDS ORDERED: Ondansetron INJ* 2 MG/ML VIAL IV PRN (14:35)
[2018-03-21] MEDS ORDERED: Albuterol/Ipratropium NEB.SOL* Albuterol 2.5 MG/Ipratropium 0.5 MG 3 ML INH PRN (14:41)
[2018-03-21] MEDS ORDERED: NS 0.9% 1000 ML** 1,000 ML IV ONE (15:02)
--- NOTE | 2018-03-21 15:48 | CONS ---
CC: Dr. Elif Luevano; Dr. Antoine * CARDIOLOGY CONSULTATION: DATE OF CONSULT: 03/21/18 REASON FOR CONSULT: Loss of consciousness and hypotension. HISTORY OF PRESENT ILLNESS: Ms. Cavanaugh is a 72-year-old woman with a history of developmental delay who is in a facility. She also has multiple medical problems and a psychiatric history of bipolar disorder. The patient had just been discharged from the hospital 2 days prior for pneumonia and in that hospitalization, she had had transient complete heart block with gagging. An event monitor has been placed and diuretics have been stopped, lisinopril had been added. The patient was sent back urgently today because of loss of consciousness and her blood pressure in the ambulance was extremely low. The patient is unable to give a history. Her power of commercial real estate attorney was present, had seen the patient yesterday, but did not watch her eat. She was unable to get a glass with a straw to her mouth without assistance. PAST MEDICAL HISTORY: The patient has a past medical history of: 1. Developmental delay. 2. Bipolar disorder. 3. Hypertension. 4. Emphysema. 5. Hyperlipidemia. 6. Hypothyroidism. 7. Transient third-degree heart block in the setting of coughing (03/13/18). 8. SVT brief. 9. Urinary tract infections. 10. Cellulitis. 11. Iron deficiency anemia and elevated PTT (Dr. Olivas). 12. Osteoarthritis. 13. Colonic polyps. 14. Pneumonia (February 2018). 15. Urinary retention in February 2018 with Gil. PAST SURGICAL HISTORY: 1. Hysterectomy in 1988. 2. Umbilical hernia repair in 2014. MEDICATIONS AT DISCHARGE: Include: 1. Levothyroxine 150 mcg a day. 2. Flovent. 3. Atorvastatin 80 mg a day. 4. Tylenol p.r.n. 5. Incruse Ellipta 1 puff daily. 6. Omeprazole 20 mg b.i.d. 7. [place] carbonate 300 mg b.i.d. 8. MultiVites. 9. DuoNeb nebulizers p.r.n. 10. Tessalon Perles p.r.n. 11. Guaifenesin 1200 mg b.i.d. 12. Lisinopril 5 mg daily. 13. Zofran p.r.n. ALLERGIES: She has seasonal allergies. No known medication allergies. FAMILY HISTORY: Unknown. SOCIAL HISTORY: Living at [facility]. History of smoking history in the past. No current history of alcohol or recreational drug use. 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 Never . Surrogate decision maker is Mary Gregg. REVIEW OF SYSTEMS: Unable to be obtained through the patient. From her surrogate decision maker, Mary Gregg, she visited her yesterday and was never told she was not eating and did not appear to have problems when she left her last night. PHYSICAL EXAM: On exam, the patient is an elderly woman, lying in bed, easily agitated during exam, not really able to engage in conversation or follow commands. Vital Signs: On arrival, the patient's blood pressure was 88/53 with a pulse of 57, oxygen saturation 93% on room air, temperature 97.1. Currently, blood pressure 99/73, pulse of 76, respiratory rate 19, oxygen saturation 93% on room air. Skin: Somewhat tigre face, lukewarm, dry. No appreciable cyanosis of the lips or nail beds. HEENT: Mucous membranes dry. Neck without increased JVP or thyromegaly. Breath sounds, not able to cooperate with good effort, but no wheezing, rales, or rhonchi appreciated. Coronary: S1, S2 regular. I did not hear murmurs. Abdomen: Active bowel sounds and soft. Lower extremities are free of edema and somewhat cool. DIAGNOSTIC STUDIES/LAB DATA: Event monitor interrogation done today at 12:06 showed multiple episodes of sinus bradycardia at 10:30 to 10:50 this morning ( older episodes could have been lost, 23 sinus bradycardic episodes identified between 10:29 and 10:51). No pauses identified. Echocardiogram done today, continued to show normal ventricular systolic function and mild valvular abnormalities, see separate report. V/Q scan done today was negative for pulmonary emboli per my interpretation, radiology interpretation pending. Chest x-ray reviewed personally, no Radiology interpretation available and showed right-sided edema significantly greater than left-sided edema. Labs show white count 14.3, hematocrit 39, platelets 569. Sodium 131, potassium 5.0, chloride 97, BUN 42, creatinine 1.9 (creatinine on 03/19/18 - 0.94) and (BUN 03/19/18 was 27). Lactic acid 1.2, calcium elevated at 10.5. AST 26, ALT 35. Troponin 0.00. C-reactive protein 4.58. BNP of 8. Urinalysis, specific gravity 1.005, ketones negative, 2+ blood, nitrite negative , leukocyte esterase 1+, white cells trace, red cells positive. ABG, pH 7.38, pCO2 of 38, pO2 of 71, oxygen saturation 96%. INR 1.37, PTT 20. D- dimer was 394. Influenza A and B were negative. 12-lead ECGs today reviewed; at 11:33, it showed normal sinus rhythm, 57 beats a minute, QRS axis of 0 with normal AV and IV conduction times, ST elevation V5 and V6, possible motion artifact; and at 11:53, repeat EKG showed normal sinus rhythm, 53 beats a minute, QRS axis of 0, normal AV and IV conduction times and no motion artifact and normalization of STs. ASSESSMENT AND PLAN: In summary, Carlene Cavanaugh is a 72-year-old woman admitted following an episode of unresponsiveness, found to have an elevated white count , hypoxia, hypotension, evidence of acute renal insufficiency with elevated BUN and creatinine new compared with 2 days ago, 03/19/18. She also has elevated white count. 1. The cardiac issues include the possibility of bradycardia and significant pauses contributing to her loss of consciousness and hypotension, but we do not have evidence of that based on her implanted event monitor. 2. Initial EKG raised concerns about acute ischemia but repeat EKG and echo and labs are reassuring and no evidence of acute ischemia. I recommend following serial troponins. 3. Other possibilities for presentation could include an aspiration pneumonia. With her new hyponatremia, elevated BUN and creatinine this raises the possibility of hormonal or renal issues, additionally urinary tract infection, SIADH, complications, related to lithium would all be in the differential, but will defer to Internal Medicine on this. I did a add a sodium and a lithium level to her laboratory work. 4. Cardiology will follow her distantly. Thank you for allowing me to assist in this nice woman's care. [id number]/[facility] #: [id number] MTDD
[2018-03-21 16:39] LABS: Lithium 1.32 mmol/L (0.6-1.2)
[2018-03-21] MEDS: ZOSYN 3.375 GM Q8H per EXTENDED INFUSION IVPB SCH ×2 (17:13)
[2018-03-21] MEDS: NS 0.9% 1000 ML** 1,000 ML IV SCH (17:13)
[2018-03-21 17:42] LABS: TSH (Thyroid Stimulating Horm) 1.7 mcIU/mL (0.34-5.60)
--- NOTE | 2018-03-21 18:04 | HP ---
CC: Dr. Elif Luevano; Dr. Magali Oglesby, [facility] * ADMISSION HISTORY AND PHYSICAL: DATE OF ADMISSION: 03/21/18 PRIMARY CARE PROVIDER: Dr. Elif Luevano. MY ATTENDING WHILE IN THE HOSPITAL: Dr. Angelika Escobar.* (DICTATED BY CRISTEL MENDOZA) CHIEF COMPLAINT: Unresponsive episode. HISTORY OF PRESENT ILLNESS: Ms. Cavanaugh is a 72-year-old female with a past medical history significant for COPD, developmental delay, bipolar disorder, who was recently admitted on this institution from 03/08/18 to 03/19/18. For details of that hospitalization, please see the medical record, but in brief, the patient came in with sudden onset of shortness of breath and altered mental status on 03/08/18. The patient had multifocal consolidation on her chest x-ray and was admitted to the hospital and treated for community-acquired pneumonia with improvement in her respiratory status, resolution of hypoxia, improvement in her mental state. The patient during her hospitalization had several episodes of ventricular standstill in the setting of coughing after having aspirated on food or fluids. The patient at that time had an event monitor implanted, but pacemaker was wanted to be avoided and given the patient's episodes were all provoked, this was deemed appropriate by Cardiology. The patient during her hospitalization was hypotensive or low normotensive. The patient while she was in the hospital had her chlorthalidone, labetalol, and felodipine discontinued and was started on lisinopril for low blood pressure, which was then decreased on the second last day of her hospitalization. The patient was recommended to be on a mechanical ground diet with thin liquids, though given the patient's recurrent episodes of aspirations provoking her heart arrhythmias, this was transitioned to a pureed diet and the patient was discharged to [facility] on 03/19/18 for short-term rehabilitation. The patient is unable to provide a large amount of history, but per her healthcare proxy who visited her on 03/20/18 while she was in the assisted, she was not acting at her baseline mental status on 03/20/18 either. The patient is difficult to communicate with at this time due to lack of her hearing aids and baseline developmental delay. The patient states that she has been feeling okay, but she does feel intermittently like it is hard to catch her breath. The patient on the morning of 03/21/18 was found unresponsive in [facility] and was sent to the hospital via EMS. The patient while in EMS was found to be profoundly hypotensive. The patient on 03/20/18 was also noted to be very weak per her healthcare proxy and has not been drinking very much. The patient was also hypoxic and requiring 3 L of oxygen via mask to keep her sat above 92%. The patient came into the emergency department, had an EKG which showed possible ST-segment elevation that was attributed to motion artifact by Cardiology. The patient had a negative troponin and an echocardiogram, which was unchanged from the one that had been obtained during her previous hospitalization. The patient had a chest x-ray, which showed consistent but improving focal consolidation. The patient's lactic acid is normal. The patient was found to be in acute kidney injury with a creatinine of 1.9 up from 1.0 on the day of her discharge 2 days before. The patient, during her hospitalization, had an acute urinary retention and had a Gil catheter placed which was unable to be removed during her hospitalization , which is still present. The patient had a urinalysis which showed 1+ leukocyte esterase and a low specific gravity. The patient also has a low sodium at 131 down from 137 during her most recent level 2 days ago. The patient also had a hypernatremia while she was admitted previously. The patient 's blood pressure increased to normal range with fluids while in the emergency department, though her lowest read blood pressure was 78/49. The patient has a V/Q scan, which showed low probability of PE. Due to concern for syncope and hypotension, we were asked to evaluate the patient for admission to the hospital. PAST MEDICAL HISTORY: COPD, developmental delay, bipolar disorder, hypertension , hyperlipidemia, lung nodules, hypothyroidism, nystagmus, osteoarthritis, elevated PTT, recent admission for pneumonia, acute urinary retention, dysphagia , ventricular standstill provoked by vagal stimuli. PAST SURGICAL HISTORY: Hysterectomy, loop recorder implantation. MEDICATIONS AT DISCHARGE: 1. Levothyroxine 150 mcg p.o. q.a.m. 2. Flovent 2 puffs p.o. b.i.d. 3. Atorvastatin 80 mg p.o. at bedtime. 4. Tylenol 650 mg p.o. q.6 hours as needed. 5. Incruse Ellipta 1 puff inhalation daily. 6. Omeprazole 20 mg p.o. b.i.d. 7. [place] carbonate 300 mg p.o. b.i.d. 8. Multivitamin 1 tab p.o. daily. 9. DuoNeb 1 nebulizer inhalation q.6 hours as needed. 10. Tessalon 100 mg p.o. b.i.d. 11. Guaifenesin 1200 mg p.o. b.i.d. 12. Lisinopril 5 mg p.o. daily. 13. Zofran 4 mg p.o. q.6 hours as needed for nausea. ALLERGIES: None. FAMILY HISTORY: The patient's family history is unknown. The patient has a brother who recently , but it is known what of. The patient has a brother who is alive and well [facility]. SOCIAL HISTORY: The patient has extensive smoking history, quitting almost 20 years. The patient never drank alcohol or used illicit drugs. 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 The patient is never and has no children. The patient's surrogate decision maker is friend, Mary Gregg. REVIEW OF SYSTEMS: A 14-point review of systems was reviewed as able from the patient and her healthcare proxy who is present at the bed and was negative except as above in the HPI; however, it was very limited due to the patient's lack of hearing aids. PHYSICAL EXAMINATION GENERAL: The patient is a 72-year-old female, who appears stated age and sitting comfortably in the bed, in no acute distress. VITAL SIGNS: Temperature 97.1, pulse rate 76, respiratory rate 19, oxygen saturation 93% on 3 L, and blood pressure 99/73. HEENT: Head: Normocephalic, atraumatic. Sclerae anicteric. No conjunctival injection. Oral mucosa dry. NECK: Supple, nontender. No lymphadenopathy. No carotid bruits auscultated. No JVD. RESPIRATORY: Rhonchi are present in the bilateral lower lobes and right middle lobe. No wheezes. No other adventitious lung sounds. CARDIAC: Regular rate and rhythm. No clicks, murmurs, gallops, or rubs. Pulses are 2+ in the bilateral dorsalis pedis, posterior tibialis, and radial areas. Right calf tenderness to palpation. ABDOMEN: Soft, nontender, nondistended. Bowel sounds present, normoactive in all 4 quadrants. No hepatosplenomegaly. No abdominal bruits auscultated. No hepatojugular reflux. GENITOURINARY: No suprapubic or CVA tenderness. Gil present draining clear yellow urine. NEUROLOGIC: Cranial nerves II through XII intact except for left-sided facial droop, which is the patient's baseline. No focal deficits. Alert, oriented to self. SKIN: Clean, dry, intact. No rash. DIAGNOSTIC STUDIES/LAB DATA: White blood cell count 14.3, hemoglobin 12.8, platelet count 569. INR 1.37, aPTT 20.1, D-dimer 397. Blood gas shows pH 7.38 , pCO2 of 38, pO2 of 71, HCO3 23, oxygen saturation 95%, base excess negative 2.3. Sodium 131, potassium 5.0, chloride 97, carbon dioxide 27, anion gap 7, BUN 42, creatinine 0.9, glucose 104, calcium 10.5. Bilirubin 0.7, AST 26, ALT of 35, alkaline phosphatase 115. Troponin I of 0.00, CRP 4.58, BNP 8. Protein 7.2, albumin 3.9, globulin 3.3. Urine shows specific gravity of 1.005, 2+ blood , 1+ leukocyte esterase, 1+ red blood cells, squamous epithelial cells present. Influenza A and B negative. Studies done while in the hospital: Chest x-ray shows persistent but improving multifocal consolidation. Electrocardiogram shows ST-segment elevation in V5, V6, I, II and minimally in aVL, as well as ST-segment depression in aVR, rate of 53, QTc of 415. Transthoracic echocardiogram shows left ventricular chamber size mildly dilated , global left ventricular wall motion and contractility within normal limits, estimated ejection fraction 55% to 60%. Right ventricular global systolic function is normal. Aortic valve leaflets are mildly thickened, normal function. There is trace to mild mitral regurgitation. There is mild tricuspid regurgitation. Compared to recent echo on 03/12/18, ventricular systolic function not significantly changed, LV chamber dilation newly noted. Nuclear medicine V/Q scan read as low probability for pulmonary embolism. ASSESSMENT AND PLAN/IMPRESSION: 1. Ms. Cavanaugh is a 72-year-old female with past medical history significant for developmental delay, bipolar disorder, chronic obstructive pulmonary disease, and recent admission for community-acquired pneumonia, during which time she developed ventricular standstill provoked by vagal stimuli and acute urinary retention. The patient was found to be hypotensive and unresponsive this morning. The patient is again hypoxic and hypotensive patient with an elevated white blood cell count. The patient will be admitted to the hospital for concern for aspiration pneumonia as she has known dysphagia found on previous exam. The patient will be continued on Zosyn at this point. The patient will be monitored. The patient was given a third of fluid bolus while in the emergency department. The patient has acute kidney injury, low sodium, high calcium, and hypotension, all consistent with severe dehydration. The patient also appears chronically dehydrated on exam. We will continue with fluids. We will not start her pressors at this time. The patient's most recent MAP was 67. The patient will be monitored closely. Vasopressin agents will be started as indicated. The patient will have a repeat swallow evaluation. If the patient 's creatinine improves to the point that it may tolerate a CTA of the chest, this may be considered to both evaluate pulmonary densities as well as check for pulmonary embolism despite low nuclear medicine scan. Given the patient's Wells' score of 4.5 and slightly elevated D-dimer and lower extremity tenderness , lower extremity Doppler is pending at this time. The patient will not be anticoagulated, but this might be indicated later if deep venous thrombosis is present or other signs of pulmonary embolism are found. This patient has been discussed with Cardiology. They do not believe that her hypotension is related to bradycardia, sinus pauses, or new myocardial infarction. The patient will have troponins cycled as well. 2. Syncope. Discussion as above. It is likely that the patient's syncope is related to her hypotension which the most likely cause for at this time is sepsis and dehydration; however, the patient will be continued to be monitored closely while in the hospital. 3. History of ventricular standstill. The patient's event monitor was interrogated by Cardiology and showed no sinus pauses, though did show some sinus bradycardia at the assisted. The patient will be monitored on telemetry. The patient will have event monitor continued. Ongoing evaluation for pacemaker should be made based on the patient's clinical course. 4. Chronic obstructive pulmonary disease. The patient is not wheezing. The patient will have DuoNeb, Flovent, and umeclidinium as previously prescribed. 5. Developmental delay. The patient will have supportive care. 6. Acute kidney injury. The patient's creatinine increased from 0.94 to 1.9 in the last 2 days. The patient will have aggressive fluid resuscitation as above. The patient will have repeat BMP checked in 6 hours. The patient will have a FENa calculated, which is pending at this time. Given the patient's acute kidney injury, her altered mental status may be related to lithium toxicity which may also be contributing to dehydration. [place] level is pending. 7. DVT prophylaxis: The patient will have heparin subcu as the patient is a high risk. 8. FEN: The patient will have a heart-healthy diet without caffeine with a pureed texture. The patient will have a swallow evaluation. 9. Code status: The patient would like to be a full code. The patient's surrogate decision maker will be her healthcare proxy as above. TIME SPENT: Approximately 75 minutes was spent on this admission of this patient, 30 of which was spent [id number] with the patient obtaining history and physical and discussing treatment plan. Plan has been discussed with my attending, Dr. Angelika Escobar, and she is in agreement. CRISTEL MENDOZA [id number]/CPS #: [id number] CLARK
[2018-03-21] MEDS: Mometasone 220 MCG MDI INH SCH (20:20)
[2018-03-21] MEDS: guaiFENesin ER TAB 600 MG PO SCH (20:50)
[2018-03-21] MEDS: Atorvastatin* 80 MG TAB PO SCH (20:53)
[2018-03-21] MEDS: Heparin VIAL(*) 5000 UNITS/ML VIAL (FIVE THOUSAND) SUBCUT SCH (20:56)
[2018-03-21] MEDS ORDERED: Lithium Carbonate TAB* 300 MG PO SCH (21:00)
[2018-03-21 21:42] LABS: BUN/Creatinine Ratio 22.7 (8-20); Calcium 8.9 mg/dL (8.6-10.3); EGFR African American 49.3 (>60); EGFR Non-African American 40.8 (>60); Potassium 4.2 mmol/L (3.5-5.0)
[2018-03-22] MEDS: ZOSYN 3.375 GM Q8H per EXTENDED INFUSION IVPB SCH ×6 (01:06→16:50)
[2018-03-22] MEDS: NS 0.9% 1000 ML** 1,000 ML IV SCH ×2 (03:58→15:37)
[2018-03-22] MEDS: Levothyroxine TAB* 150 MCG TAB PO SCH (05:51)
[2018-03-22] MEDS: Heparin VIAL(*) 5000 UNITS/ML VIAL (FIVE THOUSAND) SUBCUT SCH ×3 (05:51→21:13)
--- NOTE | 2018-03-22 06:19 | PN ---
Progress Note - Progress Note Date of Service: 03/22/18 Note: Paged - patient had 4 second pause while vomiting.
[2018-03-22] MEDS: Umeclidinium 62.5 MDI(NF) MDI INH SCH (07:32)
[2018-03-22] MEDS: Multivitamins/Minerals TAB PO SCH (08:37)
[2018-03-22] MEDS: guaiFENesin ER TAB 600 MG PO SCH ×2 (08:37→21:13)
[2018-03-22] MEDS: Pantoprazole TAB * 40 MG TAB PO SCH (08:37)
[2018-03-22 08:52] LABS: Urine Creatinine Concentration 9.9 mg/dL
--- NOTE | 2018-03-22 09:20 | PN ---
Subjective Date of Service: 03/22/18 Interval History: Ms. Cavanaugh is in good spirits this morning. She is sitting up in a chair. She is not able to provide any subjective data. She is asking for water and nursing reports that she has been drinking a large amount of water and c/o feeling thirsty. Overnight had a 4 sec pause while vomiting. Family History: Unchanged from Admission Social History: Unchanged from Admission Past Medical History: Unchanged from Admission Objective Active Medications: Acetaminophen (Tylenol Tab*) 650 mg PO Q6H PRN FEVER/PAIN Albuterol/Ipratropium (Duoneb (Albuterol 2.5 Mg/Ipratropium 0.5 Mg)) 1 neb INH Q6H PRN SOB/WHEEZING Atorvastatin Calcium (Lipitor*) 80 mg PO BEDTIME AMI Guaifenesin (Mucinex*) 1,200 mg PO BID AMI Heparin Sodium (Porcine) (Heparin Vial(*)) 5,000 units SUBCUT Q8HR [facility] Sodium Chloride (Ns 0.9% 1000 Ml) 1,000 mls @ 100 mls/hr IV PER RATE AMI Piperacillin Sod/Tazobactam (Sod 3.375 gm/ Sodium Chloride) 100 mls @ 25 mls/ hr IVPB Q8H [facility]I Levothyroxine Sodium (Synthroid Tab*) 150 mcg PO QAM@0600 [facility]I Mometasone Furoate (Asmanex 220 Mcg Mdi *) 2 puff INH QPM [facility] Multivitamins/Minerals (Theragran/Minerals Tab*) 1 tab PO DAILY AMI Ondansetron HCl (Zofran Inj*) 4 mg IV Q6H PRN NAUSEA Pantoprazole Sodium (Protonix Tab*) 40 mg PO DAILY [facility] Pharmacy Consult (Zosyn Per Pharmacy*) 1 note FOLLOW UP .ZOSYN PER PHARMACY AMI Umeclidinium [place] (Incruse Ellipta Mdi (Nf)) 1 inh INH DAILY [facility] Vital Signs - 8 hr 03/22/18 03/22/18 03:50 07:36 Temperature 97.4 F 97.7 F Pulse Rate 78 64 Respiratory 20 18 Rate Blood Pressure 113/59 114/75 (mmHg) O2 Sat by Pulse 97 100 Oximetry Oxygen Devices in Use Now: Nasal Cannula - 2L Appearance: Elderly female sitting in chair in NAD Eyes: No Scleral Icterus Ears/Nose/Mouth/Throat: Mucous Membranes Moist Neck: NL Appearance and Movements; NL JVP, Trachea Midline Respiratory: Symmetrical Chest Expansion and Respiratory Effort, - - Coarse crackles to right base, otherwise diminished throughout Cardiovascular: NL Sounds; No Murmurs; No JVD, RRR Abdominal: NL Sounds; No Tenderness; No Distention Neurological: - - Oriented to self Lines/Tubes/Other Access: Clean, Dry and Intact Peripheral IV Nutrition: Taking PO's Result Diagrams: 03/21/18 11:48 03/21/18 21:15 Assess/Plan/Problems-Billing Assessment: Ms. Cavanaugh is a 72 yo F with PMH of recent hospitalization from 03/08/18-03/19/18 for pneumonia, ventricular standstill s/p event monitor placement, acute urinary retention, developmental delay, COPD, and HTN; who presented after an episode of syncope and was admitted for concern for aspiration pneumonia. - Patient Problems (1) Aspiration pneumonia Code(s): J69.0 - PNEUMONITIS DUE TO INHALATION OF FOOD AND VOMIT Comment: - CxR shows persistent but improving consolidation - Speech therapy eval notes dysphagia, requiring nectar thick liquids - Continue Zosyn (2) Acute respiratory failure with hypoxia Code(s): J96.01 - ACUTE RESPIRATORY FAILURE WITH HYPOXIA Comment: - Secondary to pneumonia - Requiring up to 5L NC on arrival to ED - VQ scan unremarkable for PE; US of bilat LE unremarkable for DVT - Plan as above (3) Sepsis Comment: - Met sepsis 2 criteria on admission with tachypnea, leukocytosis, known source of infection, and persistent hypotension; met qSOFA criteria with tachypnea and AMS - Met criteria for septic shock, but unclear if this was actually paper sales representative of sepsis or if hypotension was secondary to dehydration - Recieved appropriate IVF bolus - Continue IVF (4) Bradycardia Code(s): R00.1 - BRADYCARDIA, UNSPECIFIED Comment: - In the 50s on arrival to the ED; occasaionally dropping down to the 30s during episodes of coughing/gagging - Tele shows 4 second pause overnight; based on the strip, this looks like it could have been a dropped beat, but difficult to decipher d/t artifact - Appreciate Cardiology consult; event monitor showing no evidence of pauses or significant bradycardia on admission - Continue to monitor on tele (5) Syncope Code(s): R55 - SYNCOPE AND COLLAPSE Comment: - Secondary to hypotension - Event monitor did not show any significant pauses - Plan as above (6) LANEY (acute kidney injury) Code(s): N17.9 - ACUTE KIDNEY FAILURE, UNSPECIFIED Comment: - Secondary to fluid volume deficit - Creatinine 1.9 on admission, now down to 1.2 - FENa 4.3% indicating post-renal, though there is a Gil which has reportedly been draining well - Continue IVF and recheck BMP in the AM (7) Acute urinary retention Code(s): R33.8 - OTHER RETENTION OF URINE Comment: - Noted during prior hospitalization; failed trial void on 03/11 and 03/15 - May attempt another trial void tomorrow (8) Developmental delay, moderate Code(s): R62.50 - UNSP LACK OF EXPECTED NORMAL PHYSIOL DEV IN CHILDHOOD Comment: - Supportive care (9) Bipolar depression Code(s): F31.30 - BIPOLAR DISORD, CRNT EPSD DEPRESS, MILD OR MOD SEVERT, UNSP Comment: - [place] level elevated on admission - Hold lithium at this point and recheck level in the AM (10) COPD (chronic obstructive pulmonary disease) Code(s): J44.9 - CHRONIC OBSTRUCTIVE PULMONARY DISEASE, UNSPECIFIED Comment: - Not in exacerbation - Continue mometasone, Incruse Ellipta (11) Hypothyroidism Code(s): E03.9 - HYPOTHYROIDISM, UNSPECIFIED Comment: - Continue levothyroxine (12) DVT prophylaxis Comment: - Heparin SQ (13) Full code status Code(s): Z78.9 - OTHER SPECIFIED HEALTH STATUS Comment: Status and Disposition: Inpatient. Anticipate d/c back to [facility] when medically stable. Attending: Stewart Jung
[2018-03-22] MEDS: Mometasone 220 MCG MDI INH SCH (19:32)
[2018-03-22] MEDS: Atorvastatin* 80 MG TAB PO SCH (21:13)
[2018-03-23] MEDS: ZOSYN 3.375 GM Q8H per EXTENDED INFUSION IVPB SCH ×6 (01:06→17:30)
[2018-03-23] MEDS: NS 0.9% 1000 ML** 1,000 ML IV SCH (01:12)
[2018-03-23] MEDS: Heparin VIAL(*) 5000 UNITS/ML VIAL (FIVE THOUSAND) SUBCUT SCH ×3 (06:10→20:05)
[2018-03-23 06:11] LABS: ABS Basophils 0.1 10^3/ul (0-0.2); ABS Eosinophils 0.3 10^3/ul (0-0.6); ABS Lymphocytes 1.2 10^3/ul (1.0-4.8); ABS Monocytes 0.4 10^3/ul (0-0.8); ABS Neutrophils 4.7 10^3/ul (1.5-7.7); ABS Nucleated RBC 0 10^3/ul; Eosinophil % 4.3 %; Hematocrit 34 % (35-47); Hemoglobin 11.2 g/dl (12.0-16.0); Lymphocyte % 18.5 %; Mean Corpuscular HGB Conc 33 g/dl (31-36); Mean Corpuscular Hemoglobin 31 pg (27-31); Mean Corpuscular Volume 94 fL (80-97); Mean Platelet Volume 7.3 fL (7.4-10.4); Nucleated Red Blood Cells % 0; Platelet Count 429 10^3/ul (150-450); Red Blood Count 3.61 10^6/ul (4.00-5.40); Red Cell Distribution Width 17 % (10.5-15); White Blood Count 6.7 10^3/ul (3.5-10.8)
[2018-03-23 06:28] LABS: BUN/Creatinine Ratio 11.1 (8-20); Calcium 9.7 mg/dL (8.6-10.3); EGFR African American 74.1 (>60); EGFR Non-African American 61.2 (>60); Potassium 4.2 mmol/L (3.5-5.0)
[2018-03-23 06:33] LABS: Lithium 0.49 mmol/L (0.6-1.2)
[2018-03-23] MEDS: Levothyroxine TAB* 150 MCG TAB PO SCH (06:59)
[2018-03-23] MEDS: Umeclidinium 62.5 MDI(NF) MDI INH SCH (08:04)
[2018-03-23] MEDS: NS 0.45% 1000 ML BAG* 1,000 ML IV SCH (08:45)
[2018-03-23] MEDS: guaiFENesin ER TAB 600 MG PO SCH ×2 (08:54→19:49)
[2018-03-23] MEDS: Pantoprazole TAB * 40 MG TAB PO SCH (08:54)
[2018-03-23] MEDS: Multivitamins/Minerals TAB PO SCH (08:55)
[2018-03-23] MEDS ORDERED: Spiriva Inhaler DEVICE* 1 EACH DEVICE INH ONE (12:00)
--- NOTE | 2018-03-23 12:17 | PN ---
Subjective Date of Service: 03/23/18 Interval History: Ms. Cavanaugh is feeling better today. She is in good spirits and is coloring on my exam. Denies pain. She denies SOB, CP, N/V. She continues to c/o thirst and is frequently asking for drinks. Family History: Unchanged from Admission Social History: Unchanged from Admission Past Medical History: Unchanged from Admission Objective Active Medications: Acetaminophen (Tylenol Tab*) 650 mg PO Q6H PRN FEVER/PAIN Albuterol/Ipratropium (Duoneb (Albuterol 2.5 Mg/Ipratropium 0.5 Mg)) 1 neb INH Q6H PRN SOB/WHEEZING Atorvastatin Calcium (Lipitor*) 80 mg PO BEDTIME AMI Guaifenesin (Mucinex*) 1,200 mg PO BID AMI Heparin Sodium (Porcine) (Heparin Vial(*)) 5,000 units SUBCUT Q8HR AMI Piperacillin Sod/Tazobactam (Sod 3.375 gm/ Sodium Chloride) 100 mls @ 25 mls/ hr IVPB Q8H AMI Sodium Chloride (Ns 0.45% 1000 Ml Bag*) 1,000 mls @ 75 mls/hr IV PER RATE AMI Levothyroxine Sodium (Synthroid Tab*) 150 mcg PO QAM@0600 AMI Mometasone Furoate (Asmanex 220 Mcg Mdi *) 2 puff INH QPM AMI Multivitamins/Minerals (Theragran/Minerals Tab*) 1 tab PO DAILY AMI Ondansetron HCl (Zofran Inj*) 4 mg IV Q6H PRN NAUSEA Pantoprazole Sodium (Protonix Tab*) 40 mg PO DAILY AMI Tiotropium [place] (Spiriva Cap.Inh*) 1 cap INH DAILY AMI Vital Signs - 8 hr 03/23/18 03/23/18 06:37 07:14 Temperature 96.9 F Pulse Rate 64 Respiratory 18 20 Rate Blood Pressure 154/72 (mmHg) O2 Sat by Pulse 100 Oximetry Oxygen Devices in Use Now: Nasal Cannula - 2L Appearance: Elderly female sitting in chair in NAD Eyes: No Scleral Icterus Ears/Nose/Mouth/Throat: Mucous Membranes Moist Neck: NL Appearance and Movements; NL JVP, Trachea Midline Respiratory: Symmetrical Chest Expansion and Respiratory Effort, - - Scattered wheezing throughout Cardiovascular: NL Sounds; No Murmurs; No JVD, RRR Abdominal: NL Sounds; No Tenderness; No Distention Extremities: No Edema Skin: No Rash or Ulcers Neurological: - - Oriented to self and place Lines/Tubes/Other Access: Clean, Dry and Intact Peripheral IV Nutrition: Taking PO's Result Diagrams: 03/23/18 05:53 03/23/18 05:53 Assess/Plan/Problems-Billing Assessment: Ms. Cavanaugh is a 72 yo F with PMH of recent hospitalization from 03/08/18-03/19/18 for pneumonia with stay complicated by ventricular standstill s/p event monitor placement, acute urinary retention, developmental delay, COPD, and HTN; who presented after an episode of syncope and was admitted for concern for aspiration pneumonia. - Patient Problems (1) Aspiration pneumonia Code(s): J69.0 - PNEUMONITIS DUE TO INHALATION OF FOOD AND VOMIT Comment: - CxR shows persistent but improving consolidation - Negative strep pneumo and legionella urine antigens; negative influenza swab - Speech therapy eval notes dysphagia, requiring nectar thick liquids - Continue Zosyn (2) Acute respiratory failure with hypoxia Code(s): J96.01 - ACUTE RESPIRATORY FAILURE WITH HYPOXIA Comment: - Secondary to pneumonia - Requiring up to 5L NC on arrival to ED, now down to 2L - VQ scan unremarkable for PE; US of bilat LE unremarkable for DVT - Continue to wean oxygen - Plan as above (3) Sepsis Comment: - Resolved - Met sepsis 2 criteria on admission with tachypnea, leukocytosis, known source of infection, and persistent hypotension; met qSOFA criteria with tachypnea and AMS - Met criteria for septic shock, but unclear if this was actually pharmaceutical service representative of sepsis or if hypotension was secondary to dehydration - Recieved appropriate IVF bolus (4) Bradycardia Code(s): R00.1 - BRADYCARDIA, UNSPECIFIED Comment: - Resolved - In the 50s on arrival to the ED; occasaionally dropping down to the 30s during episodes of coughing/gagging - Tele shows 4 second pause 03/22; based on the strip, this looks like it could have been a dropped beat, but difficult to decipher d/t artifact - Appreciate Cardiology consult; event monitor showing no evidence of pauses or significant bradycardia on admission - Continue to monitor on tele (5) Syncope Code(s): R55 - SYNCOPE AND COLLAPSE Comment: - Secondary to hypotension - Event monitor did not show any significant pauses - Plan as above (6) Acute urinary retention Code(s): R33.8 - OTHER RETENTION OF URINE Comment: - Noted during prior hospitalization; failed trial void on 03/11 and 03/15 - Attempt trial void today (7) LANEY (acute kidney injury) Code(s): N17.9 - ACUTE KIDNEY FAILURE, UNSPECIFIED Comment: - Resolved - Secondary to fluid volume deficit - Creatinine 1.9 on admission, now back at baseline - FENa 4.3% indicating post-renal, though there is a Gil which has reportedly been draining well (8) Hypertension Current Visit: No Status: Acute Code(s): I10 - ESSENTIAL (PRIMARY) HYPERTENSION SNOMED Code(s): [id number] Comment: - Slightly hypertensive, SBP 130-140s - Resume lisinopril (9) Bipolar depression Code(s): F31.30 - BIPOLAR DISORD, CRNT EPSD DEPRESS, MILD OR MOD SEVERT, UNSP Comment: - [place] level elevated on admission, likely secondary to dehydration - [place] level subtherapeutic today - Resume lithium at home dosing (10) Developmental delay, moderate Code(s): R62.50 - UNSP LACK OF EXPECTED NORMAL PHYSIOL DEV IN CHILDHOOD Comment: - Supportive care (11) COPD (chronic obstructive pulmonary disease) Code(s): J44.9 - CHRONIC OBSTRUCTIVE PULMONARY DISEASE, UNSPECIFIED Comment: - Not in exacerbation - Continue mometasone, Spiriva (12) Hypothyroidism Code(s): E03.9 - HYPOTHYROIDISM, UNSPECIFIED Comment: - Continue levothyroxine (13) DVT prophylaxis Comment: - Heparin SQ (14) Full code status Code(s): Z78.9 - OTHER SPECIFIED HEALTH STATUS Comment: Status and Disposition: Inpatient. Anticipate d/c back to [facility] when medically stable, possibly Monday. Attending: Angelika Salcido
[2018-03-23] MEDS: Tiotropium CAP.INH* CAP.INH/18 MCG (USE ORDER SET !) INH SCH (13:14)
[2018-03-23] MEDS: Atorvastatin* 80 MG TAB PO SCH (19:49)
[2018-03-23] MEDS: Lithium Carbonate TAB* 300 MG PO SCH (19:49)
[2018-03-23] MEDS: Mometasone 220 MCG MDI INH SCH (19:57)
[2018-03-24] MEDS: ZOSYN 3.375 GM Q8H per EXTENDED INFUSION IVPB SCH ×6 (00:53→16:53)
[2018-03-24] MEDS: Heparin VIAL(*) 5000 UNITS/ML VIAL (FIVE THOUSAND) SUBCUT SCH ×3 (05:25→20:00)
[2018-03-24] MEDS: Levothyroxine TAB* 150 MCG TAB PO SCH (05:25)
[2018-03-24 06:06] LABS: BUN/Creatinine Ratio 10.1 (8-20); Calcium 9.2 mg/dL (8.6-10.3); Potassium 4.2 mmol/L (3.5-5.0)
[2018-03-24] MEDS: NS 0.45% 1000 ML BAG* 1,000 ML IV SCH (07:35)
[2018-03-24] MEDS: Tiotropium CAP.INH* CAP.INH/18 MCG (USE ORDER SET !) INH SCH (07:50)
[2018-03-24] MEDS: Lithium Carbonate TAB* 300 MG PO SCH ×2 (08:31→19:54)
[2018-03-24] MEDS: Multivitamins/Minerals TAB PO SCH (08:32)
[2018-03-24] MEDS: Pantoprazole TAB * 40 MG TAB PO SCH (08:32)
[2018-03-24] MEDS: guaiFENesin ER TAB 600 MG PO SCH ×2 (08:32→19:54)
--- NOTE | 2018-03-24 10:22 | PN ---
Subjective Date of Service: 03/24/18 Interval History: Ms. Cavanaugh is feeling ok today. She c/o feeling tired and would like to get back to bed. She did eat breakfast, but feels somewhat sick to her stomach. She denies any actual N/V. She denies SOB or CP. Would like to go back to her fdc. Family History: Unchanged from Admission Social History: Unchanged from Admission Past Medical History: Unchanged from Admission Objective Active Medications: Acetaminophen (Tylenol Tab*) 650 mg PO Q6H PRN FEVER/PAIN Albuterol/Ipratropium (Duoneb (Albuterol 2.5 Mg/Ipratropium 0.5 Mg)) 1 neb INH Q6H PRN SOB/WHEEZING Atorvastatin Calcium (Lipitor*) 80 mg PO BEDTIME AMI Guaifenesin (Mucinex*) 1,200 mg PO BID AMI Heparin Sodium (Porcine) (Heparin Vial(*)) 5,000 units SUBCUT Q8HR AMI Piperacillin Sod/Tazobactam (Sod 3.375 gm/ Sodium Chloride) 100 mls @ 25 mls/ hr IVPB Q8H [facility] Sodium Chloride (Ns 0.45% 1000 Ml Bag*) 1,000 mls @ 75 mls/hr IV PER RATE [facility] Levothyroxine Sodium (Synthroid Tab*) 150 mcg PO QAM@0600 AMI Lisinopril (Prinivil Tab*) 5 mg PO DAILY [facility] [place] Carbonate ([place] Carbonate Tab*) 300 mg PO BID AMI Mometasone Furoate (Asmanex 220 Mcg Mdi *) 2 puff INH QPM [facility] Multivitamins/Minerals (Theragran/Minerals Tab*) 1 tab PO DAILY [facility] Ondansetron HCl (Zofran Inj*) 4 mg IV Q6H PRN NAUSEA Pantoprazole Sodium (Protonix Tab*) 40 mg PO DAILY [facility] Pharmacy Consult (Zosyn Per Pharmacy*) 1 note FOLLOW UP .ZOSYN PER PHARMACY AMI Tiotropium [place] (Spiriva Cap.Inh*) 1 cap INH DAILY [facility] Vital Signs - 8 hr 03/24/18 03/24/18 03/24/18 03:16 03:53 07:32 Temperature 97.9 F Pulse Rate 158 65 Respiratory 18 16 Rate Blood Pressure 121/89 (mmHg) O2 Sat by Pulse 95 Oximetry 03/24/18 07:53 Temperature Pulse Rate 79 Respiratory 16 Rate Blood Pressure (mmHg) O2 Sat by Pulse 99 Oximetry Oxygen Devices in Use Now: Nasal Cannula - 2L Appearance: Elderly female sitting in chair in NAD Eyes: No Scleral Icterus Ears/Nose/Mouth/Throat: Mucous Membranes Moist Neck: NL Appearance and Movements; NL JVP, Trachea Midline Respiratory: Symmetrical Chest Expansion and Respiratory Effort, Clear to Auscultation - Diminished Cardiovascular: NL Sounds; No Murmurs; No JVD, RRR Abdominal: NL Sounds; No Tenderness; No Distention Extremities: No Edema Skin: No Rash or Ulcers Neurological: - - Oriented to self and place Lines/Tubes/Other Access: Clean, Dry and Intact Peripheral IV Nutrition: Taking PO's Result Diagrams: 03/23/18 05:53 03/24/18 05:30 Assess/Plan/Problems-Billing Assessment: Ms. Cavanaugh is a 72 yo F with PMH of recent hospitalization from 03/08/18-03/19/18 for pneumonia with stay complicated by ventricular standstill s/p event monitor placement, acute urinary retention, developmental delay, COPD, and HTN; who presented after an episode of syncope and was admitted for concern for aspiration pneumonia. - Patient Problems (1) Aspiration pneumonia Code(s): J69.0 - PNEUMONITIS DUE TO INHALATION OF FOOD AND VOMIT Comment: - CxR shows persistent but improving consolidation - Negative strep pneumo and legionella urine antigens; negative influenza swab - Speech therapy eval notes dysphagia, requiring nectar thick liquids - Continue Zosyn (day 3/7) (2) Acute respiratory failure with hypoxia Code(s): J96.01 - ACUTE RESPIRATORY FAILURE WITH HYPOXIA Comment: - Secondary to pneumonia - Requiring up to 5L NC on arrival to ED, now down to 2L - VQ scan unremarkable for PE; US of bilat LE unremarkable for DVT - Continue to wean oxygen - Plan as above (3) Sepsis Comment: - Resolved - Met sepsis 2 criteria on admission with tachypnea, leukocytosis, known source of infection, and persistent hypotension; met qSOFA criteria with tachypnea and AMS - Met criteria for septic shock, but unclear if this was actually sales representative health insurance of sepsis or if hypotension was secondary to dehydration - Recieved appropriate IVF bolus (4) Bradycardia Code(s): R00.1 - BRADYCARDIA, UNSPECIFIED Comment: - Resolved - In the 50s on arrival to the ED; occasaionally dropping down to the 30s during episodes of coughing/gagging - Tele shows 4 second pause 03/22; based on the strip, this looks like it could have been a dropped beat, but difficult to decipher d/t artifact - Appreciate Cardiology consult; event monitor showing no evidence of pauses or significant bradycardia on admission, suspect this is all vasovagal - Continue to monitor on tele (5) Syncope Code(s): R55 - SYNCOPE AND COLLAPSE Comment: - Secondary to hypotension - Event monitor did not show any significant pauses - Plan as above (6) Acute urinary retention Code(s): R33.8 - OTHER RETENTION OF URINE Comment: - Resolved - Noted during prior hospitalization; failed trial void on 03/11 and 03/15 - Passed trial void yesterday, but Gil was replaced today for 24hr urine collection; will remove Gil when urine collection is finished (7) LANEY (acute kidney injury) Code(s): N17.9 - ACUTE KIDNEY FAILURE, UNSPECIFIED Comment: - Resolved - Secondary to fluid volume deficit - Creatinine 1.9 on admission, now back at baseline - FENa 4.3% indicating post-renal, though there is a Gil has been draining well (8) Hypertension Code(s): I10 - ESSENTIAL (PRIMARY) HYPERTENSION Comment: - Slightly hypertensive, SBP 100-130s - Continue lisinopril (9) Bipolar depression Code(s): F31.30 - BIPOLAR DISORD, CRNT EPSD DEPRESS, MILD OR MOD SEVERT, UNSP Comment: - [place] level elevated on admission, likely secondary to dehydration; resolved - Continue lithium for now, but possible that she ash developed DI from lithium use; 24hr urine collection in progress, but she may need to be taken off lithium completely if that indicates DI (10) Developmental delay, moderate Code(s): R62.50 - UNSP LACK OF EXPECTED NORMAL PHYSIOL DEV IN CHILDHOOD Comment: - Supportive care (11) COPD (chronic obstructive pulmonary disease) Code(s): J44.9 - CHRONIC OBSTRUCTIVE PULMONARY DISEASE, UNSPECIFIED Comment: - Not in exacerbation - Continue mometasone, Spiriva (12) Hypothyroidism Code(s): E03.9 - HYPOTHYROIDISM, UNSPECIFIED Comment: - Continue levothyroxine (13) DVT prophylaxis Comment: - Heparin SQ (14) Full code status Code(s): Z78.9 - OTHER SPECIFIED HEALTH STATUS Comment: Status and Disposition: Inpatient. Anticipate d/c back to [facility] when medically stable, possibly Monday. Attending: Raisa Boothe
[2018-03-24] MEDS: Lisinopril TAB* 5 MG PO SCH (13:29)
[2018-03-24] MEDS: Mometasone 220 MCG MDI INH SCH (19:27)
[2018-03-24] MEDS: Atorvastatin* 80 MG TAB PO SCH (19:54)
[2018-03-25] MEDS: NS 0.45% 1000 ML BAG* 1,000 ML IV SCH (01:00)
[2018-03-25] MEDS: ZOSYN 3.375 GM Q8H per EXTENDED INFUSION IVPB SCH ×6 (01:18→16:01)
[2018-03-25] MEDS: Heparin VIAL(*) 5000 UNITS/ML VIAL (FIVE THOUSAND) SUBCUT SCH ×3 (05:21→20:07)
[2018-03-25] MEDS: Levothyroxine TAB* 150 MCG TAB PO SCH (05:22)
[2018-03-25] MEDS: Tiotropium CAP.INH* CAP.INH/18 MCG (USE ORDER SET !) INH SCH (07:10)
[2018-03-25] MEDS: Pantoprazole TAB * 40 MG TAB PO SCH (08:04)
[2018-03-25] MEDS: Lisinopril TAB* 5 MG PO SCH (08:04)
[2018-03-25] MEDS: Multivitamins/Minerals TAB PO SCH (08:04)
[2018-03-25] MEDS: guaiFENesin ER TAB 600 MG PO SCH ×2 (08:04→20:06)
[2018-03-25] MEDS: Lithium Carbonate TAB* 300 MG PO SCH ×2 (08:05→20:06)
[2018-03-25 12:45] LABS: Urine Potassium Concentration 9.6 mmol/L
[2018-03-25 12:54] LABS: Urine Creatinine Concentration 11.06 mg/dL
--- NOTE | 2018-03-25 14:45 | PN ---
Subjective Date of Service: 03/25/18 Interval History: Ms. Cavanaugh is feeling ok today. She continues to c/o thirst frequently. Nursing has been limiting her fluid intake. She denies SOB or CP. She did have an episode of cough during my exam, but otherwise denies coughing. She is anxious to return home and get back to work. No N/V. Family History: Unchanged from Admission Social History: Unchanged from Admission Past Medical History: Unchanged from Admission Objective Active Medications: Acetaminophen (Tylenol Tab*) 650 mg PO Q6H PRN FEVER/PAIN Albuterol/Ipratropium (Duoneb (Albuterol 2.5 Mg/Ipratropium 0.5 Mg)) 1 neb INH Q6H PRN SOB/WHEEZING Atorvastatin Calcium (Lipitor*) 80 mg PO BEDTIME AMI Guaifenesin (Mucinex*) 1,200 mg PO BID AMI Heparin Sodium (Porcine) (Heparin Vial(*)) 5,000 units SUBCUT Q8HR AMI Piperacillin Sod/Tazobactam (Sod 3.375 gm/ Sodium Chloride) 100 mls @ 25 mls/ hr IVPB Q8H AMI Levothyroxine Sodium (Synthroid Tab*) 150 mcg PO QAM@0600 AMI Lisinopril (Prinivil Tab*) 5 mg PO DAILY AMI [place] Carbonate ([place] Carbonate Tab*) 300 mg PO BID AMI Mometasone Furoate (Asmanex 220 Mcg Mdi *) 2 puff INH QPM AMI Multivitamins/Minerals (Theragran/Minerals Tab*) 1 tab PO DAILY AMI Ondansetron HCl (Zofran Inj*) 4 mg IV Q6H PRN NAUSEA Pantoprazole Sodium (Protonix Tab*) 40 mg PO DAILY [facility] Pharmacy Consult (Zosyn Per Pharmacy*) 1 note FOLLOW UP .ZOSYN PER PHARMACY AMI Tiotropium [place] (Spiriva Cap.Inh*) 1 cap INH DAILY [facility] Vital Signs - 8 hr 03/25/18 03/25/18 03/25/18 06:42 07:31 11:18 Temperature 97.5 F 97.1 F Pulse Rate 56 69 Respiratory 20 18 19 Rate Blood Pressure 119/70 112/68 (mmHg) O2 Sat by Pulse 100 96 Oximetry Oxygen Devices in Use Now: Nasal Cannula - 2L Appearance: Elderly female sitting in bed in NAD Eyes: No Scleral Icterus Ears/Nose/Mouth/Throat: Mucous Membranes Moist Neck: NL Appearance and Movements; NL JVP, Trachea Midline Respiratory: Symmetrical Chest Expansion and Respiratory Effort, Clear to Auscultation Cardiovascular: NL Sounds; No Murmurs; No JVD, RRR Extremities: No Edema Skin: No Rash or Ulcers Neurological: - - Oriented to self and place Lines/Tubes/Other Access: Clean, Dry and Intact Peripheral IV Nutrition: Taking PO's Result Diagrams: 03/23/18 05:53 03/24/18 05:30 Assess/Plan/Problems-Billing Assessment: Ms. Cavanaugh is a 72 yo F with PMH of recent hospitalization from 03/08/18-03/19/18 for pneumonia with stay complicated by ventricular standstill s/p event monitor placement, acute urinary retention, developmental delay, COPD, and HTN; who presented after an episode of syncope and was admitted for concern for aspiration pneumonia. - Patient Problems (1) Aspiration pneumonia Code(s): J69.0 - PNEUMONITIS DUE TO INHALATION OF FOOD AND VOMIT Comment: - CxR shows persistent but improving consolidation - Negative strep pneumo and legionella urine antigens; negative influenza swab - Speech therapy eval notes dysphagia, requiring nectar thick liquids - Continue Zosyn (day 05/27) (2) Acute respiratory failure with hypoxia Code(s): J96.01 - ACUTE RESPIRATORY FAILURE WITH HYPOXIA Comment: - Secondary to pneumonia - Requiring up to 5L NC on arrival to ED, now down to 2L - VQ scan unremarkable for PE; US of bilat LE unremarkable for DVT - Continue to wean oxygen - Plan as above (3) Sepsis Comment: - Resolved - Secondary to pneumonia - Met sepsis 2 criteria on admission with tachypnea, leukocytosis, known source of infection, and persistent hypotension; met qSOFA criteria with tachypnea and AMS - Met criteria for septic shock, but unclear if this was actually business development representative of sepsis or if hypotension was secondary to dehydration d/t high urine output - Recieved appropriate IVF bolus (4) Bradycardia Code(s): R00.1 - BRADYCARDIA, UNSPECIFIED Comment: - Resolved - In the 50s on arrival to the ED; occasaionally dropping down to the 30s during episodes of coughing/gagging - Tele shows 4 second pause 03/22; based on the strip, this looks like it could have been a dropped beat, but difficult to decipher d/t artifact - Appreciate Cardiology consult; event monitor showing no evidence of pauses or significant bradycardia on admission, suspect this is all vasovagal - Continue to monitor on tele (5) Syncope Code(s): R55 - SYNCOPE AND COLLAPSE Comment: - Secondary to hypotension - Event monitor did not show any significant pauses - Plan as above (6) Acute urinary retention Code(s): R33.8 - OTHER RETENTION OF URINE Comment: - Resolved - Noted during prior hospitalization; failed trial void on 03/11 and 03/15 (7) LANEY (acute kidney injury) Code(s): N17.9 - ACUTE KIDNEY FAILURE, UNSPECIFIED Comment: - Resolved - Secondary to fluid volume deficit - Creatinine 1.9 on admission, now back at baseline (8) Hypertension Code(s): I10 - ESSENTIAL (PRIMARY) HYPERTENSION Comment: - Slightly hypertensive, SBP 110s - Continue lisinopril (9) Bipolar depression Code(s): F31.30 - BIPOLAR DISORD, CRNT EPSD DEPRESS, MILD OR MOD SEVERT, UNSP Comment: - [place] level elevated on admission, likely secondary to dehydration; resolved - Continue lithium for now, but possible that she ash developed DI from lithium use; pending workup (10) Developmental delay, moderate Code(s): R62.50 - UNSP LACK OF EXPECTED NORMAL PHYSIOL DEV IN CHILDHOOD Comment: - Supportive care (11) COPD (chronic obstructive pulmonary disease) Code(s): J44.9 - CHRONIC OBSTRUCTIVE PULMONARY DISEASE, UNSPECIFIED Comment: - Not in exacerbation - Continue mometasone, Spiriva (12) Hypothyroidism Code(s): E03.9 - HYPOTHYROIDISM, UNSPECIFIED Comment: - Continue levothyroxine (13) DVT prophylaxis Comment: - Heparin SQ (14) Full code status Code(s): Z78.9 - OTHER SPECIFIED HEALTH STATUS Comment: Status and Disposition: Inpatient. Anticipate d/c back to [facility] when medically stable, possibly Monday. Attending: Raisa Boothe
[2018-03-25 16:36] LABS: BUN/Creatinine Ratio 8.6 (8-20); Calcium 9.6 mg/dL (8.6-10.3); EGFR African American 71.3 (>60); EGFR Non-African American 58.9 (>60); Potassium 4.5 mmol/L (3.5-5.0)
[2018-03-25] MEDS: Mometasone 220 MCG MDI INH SCH (19:18)
[2018-03-25] MEDS: Atorvastatin* 80 MG TAB PO SCH (20:06)
[2018-03-26] MEDS: ZOSYN 3.375 GM Q8H per EXTENDED INFUSION IVPB SCH ×6 (01:30→16:29)
[2018-03-26] MEDS: Levothyroxine TAB* 150 MCG TAB PO SCH (05:21)
[2018-03-26] MEDS: Heparin VIAL(*) 5000 UNITS/ML VIAL (FIVE THOUSAND) SUBCUT SCH ×3 (05:21→22:22)
[2018-03-26 06:32] LABS: BUN/Creatinine Ratio 7.1 (8-20); Calcium 9.5 mg/dL (8.6-10.3); EGFR African American 67.1 (>60); EGFR Non-African American 55.5 (>60); Potassium 3.6 mmol/L (3.5-5.0)
[2018-03-26] MEDS: Multivitamins/Minerals TAB PO SCH (08:05)
[2018-03-26] MEDS: Pantoprazole TAB * 40 MG TAB PO SCH (08:05)
[2018-03-26] MEDS: guaiFENesin ER TAB 600 MG PO SCH ×2 (08:05→20:47)
[2018-03-26] MEDS: Lithium Carbonate TAB* 300 MG PO SCH ×2 (08:05→20:47)
[2018-03-26] MEDS: Lisinopril TAB* 5 MG PO SCH (08:05)
[2018-03-26] MEDS: Tiotropium CAP.INH* CAP.INH/18 MCG (USE ORDER SET !) INH SCH (08:11)
--- NOTE | 2018-03-26 14:31 | PN ---
Subjective Date of Service: 03/26/18 Interval History: Ms. Cavanaugh is in very good spirits this morning. She reports feeling much better. She would like to go home and get back to work. She has been up in the chair and ambulating in the room. Denies SOB or cough. Family History: Unchanged from Admission Social History: Unchanged from Admission Past Medical History: Unchanged from Admission Objective Active Medications: Acetaminophen (Tylenol Tab*) 650 mg PO Q6H PRN FEVER/PAIN Albuterol/Ipratropium (Duoneb (Albuterol 2.5 Mg/Ipratropium 0.5 Mg)) 1 neb INH Q6H PRN SOB/WHEEZING Atorvastatin Calcium (Lipitor*) 80 mg PO BEDTIME AMI Guaifenesin (Mucinex*) 1,200 mg PO BID AMI Heparin Sodium (Porcine) (Heparin Vial(*)) 5,000 units SUBCUT Q8HR AMI Piperacillin Sod/Tazobactam (Sod 3.375 gm/ Sodium Chloride) 100 mls @ 25 mls/ hr IVPB Q8H AMI Levothyroxine Sodium (Synthroid Tab*) 150 mcg PO QAM@0600 [facility] Lisinopril (Prinivil Tab*) 2.5 mg PO DAILY AMI [place] Carbonate ([place] Carbonate Tab*) 300 mg PO BID AMI Mometasone Furoate (Asmanex 220 Mcg Mdi *) 2 puff INH QPM AMI Multivitamins/Minerals (Theragran/Minerals Tab*) 1 tab PO DAILY [facility]I Ondansetron HCl (Zofran Inj*) 4 mg IV Q6H PRN NAUSEA Pantoprazole Sodium (Protonix Tab*) 40 mg PO DAILY AMI Tiotropium [place] (Spiriva Cap.Inh*) 1 cap INH DAILY AMI Vital Signs - 8 hr 03/26/18 03/26/18 03/26/18 06:37 08:04 08:11 Temperature 97.7 F Pulse Rate 64 72 Respiratory 18 20 18 Rate Blood Pressure 126/70 (mmHg) O2 Sat by Pulse 97 96 Oximetry 03/26/18 11:25 Temperature 97.8 F Pulse Rate 69 Respiratory 20 Rate Blood Pressure 113/56 (mmHg) O2 Sat by Pulse 99 Oximetry Oxygen Devices in Use Now: Nasal Cannula - 2L Appearance: Elderly female sitting in chair in NAD Eyes: No Scleral Icterus Ears/Nose/Mouth/Throat: Mucous Membranes Moist Neck: NL Appearance and Movements; NL JVP, Trachea Midline Respiratory: Symmetrical Chest Expansion and Respiratory Effort, Clear to Auscultation Cardiovascular: NL Sounds; No Murmurs; No JVD, RRR Abdominal: NL Sounds; No Tenderness; No Distention Extremities: No Edema Skin: No Rash or Ulcers Neurological: - - Oriented to self and place Lines/Tubes/Other Access: Clean, Dry and Intact Peripheral IV Nutrition: Taking PO's Result Diagrams: 03/23/18 05:53 03/26/18 05:52 Assess/Plan/Problems-Billing Assessment: Ms. Cavanaugh is a 72 yo F with PMH of recent hospitalization from 03/08/18-03/19/18 for pneumonia with stay complicated by ventricular standstill s/p event monitor placement, acute urinary retention, developmental delay, COPD, and HTN; who presented after an episode of syncope and was admitted for concern for aspiration pneumonia. - Patient Problems (1) Aspiration pneumonia Code(s): J69.0 - PNEUMONITIS DUE TO INHALATION OF FOOD AND VOMIT Comment: - CxR shows persistent but improving consolidation - Negative strep pneumo and legionella urine antigens; negative influenza swab - Speech therapy eval notes dysphagia, requiring nectar thick liquids - Continue Zosyn (day 06/26) (2) Acute respiratory failure with hypoxia Code(s): J96.01 - ACUTE RESPIRATORY FAILURE WITH HYPOXIA Comment: - Secondary to pneumonia - Requiring up to 5L NC on arrival to ED, now down to 2L - VQ scan unremarkable for PE; US of bilat LE unremarkable for DVT - Continue to wean oxygen - Plan as above (3) Polydipsia Code(s): R63.1 - POLYDIPSIA Comment: - With associated polyuria; had >5L out during 24hr urine - Likely secondary to diabetes insipidus; this could be transient d/t high lithium level on admission and LANEY, but she also displayed polydipsia last admission and was hypotensive on arrival to the ED; concerning that this may be a long-term issue and hypotension was secondary to polyuria/DI; if this is the case, she may continue to have episodes of hypotension if she is not able to maintain adqeuate fluid intake - Spoke with Nephrology and would recommend allowing unlimited access to fluids after d/c; she can follow up with Dr. Shyann if this continues to be an issue (4) Sepsis Comment: - Resolved - Secondary to pneumonia - Met sepsis 2 criteria on admission with tachypnea, leukocytosis, known source of infection, and persistent hypotension; met qSOFA criteria with tachypnea and AMS; met criteria for septic shock, but unclear if this was actually maintenance representative of sepsis or if hypotension was secondary to dehydration d/t high urine output - Recieved appropriate IVF bolus (5) Bradycardia Code(s): R00.1 - BRADYCARDIA, UNSPECIFIED Comment: - Resolved - In the 50s on arrival to the ED; occasaionally dropping down to the 30s during episodes of coughing/gagging - Tele shows 4 second pause 03/22; based on the strip, this looks like it could have been a dropped beat, but difficult to decipher d/t artifact - Appreciate Cardiology consult; event monitor showing no evidence of pauses or significant bradycardia on admission, suspect this is all vasovagal - Continue to monitor on tele (6) Syncope Code(s): R55 - SYNCOPE AND COLLAPSE Comment: - Secondary to hypotension - Event monitor did not show any significant pauses - Plan as above (7) LANEY (acute kidney injury) Code(s): N17.9 - ACUTE KIDNEY FAILURE, UNSPECIFIED Comment: - Resolved - Secondary to fluid volume deficit - Creatinine 1.9 on admission, now back at baseline (8) Hypertension Code(s): I10 - ESSENTIAL (PRIMARY) HYPERTENSION Comment: - Slightly hypertensive, SBP 110-120s - Continue lisinopril at decreased dose (9) Bipolar depression Code(s): F31.30 - BIPOLAR DISORD, CRNT EPSD DEPRESS, MILD OR MOD SEVERT, UNSP Comment: - [place] level elevated on admission, likely secondary to dehydration; resolved - Appreciate Psych consult; recommends leaving her on lithium at this point, DI may be transient d/t supratherapeutic lithium level on admission - Continue lithium (10) Developmental delay, moderate Code(s): R62.50 - UNSP LACK OF EXPECTED NORMAL PHYSIOL DEV IN CHILDHOOD Comment: - Supportive care (11) COPD (chronic obstructive pulmonary disease) Code(s): J44.9 - CHRONIC OBSTRUCTIVE PULMONARY DISEASE, UNSPECIFIED Comment: - Not in exacerbation - Continue mometasone, Spiriva (12) Hypothyroidism Code(s): E03.9 - HYPOTHYROIDISM, UNSPECIFIED Comment: - Continue levothyroxine (13) DVT prophylaxis Comment: - Heparin SQ (14) Full code status Code(s): Z78.9 - OTHER SPECIFIED HEALTH STATUS Comment: Status and Disposition: Inpatient. Anticipate d/c back to [facility] when medically stable, possibly tomorrow. Attending: Leo Marinelli
--- NOTE | 2018-03-26 14:49 | CONSULT ---
Identification - Patient Identification Reason for Psychiatric Consultation: Other -: Patient is a 72 year old, F admitted on 03/22/18. - MHU Identification Employment Status: Disabled Hx Psychiatric Hospitalization: No History - Objective HPI: The patient is a 72 y.o. single, intellectually disabled, white female with a history of bipolar disorder currently admitted to the Hospitalist service for treatment of aspiration pneumonia who arrived at the hospital on March 21 with acute renal insufficiency and supratherapeutic lithium levels, presumably secondary to dehydration. The primary team is worried about the development of diabetes insipidus, secondary to lithium use, and are wondering if this agent should be discontinued in favor of a different mood stabilizer. The patient is interviewed along with her HCP, Mary Gregg, who is a friend and ran a family penitentiary that Carlene resided in for several decades. Carlene has been on lithium since the when this was started by now retired community psychiatrist Mendel Long. The patient has been stable and free from bipolar episodes for the duration of her treatment with lithium and the medication is now prescribed by her primary care provider, Dr. Sapphire Luevano. The patient is reluctant to change medications, as is her proxy. She denies SI but admits to polydipsia and polyuria. The patient has been temporarily staying at [facility] for subacute rehab following a recent hospitalization here last month. Thereafter, she is set to return to her family penitentiary on [facility]. She continues to work a developmentally appropriate job at [employer]. Exam Appearance: Well Developed/Nourished, Obese Hygiene: Normal Grooming: Fairly Well Kept Psychomotor Activities: Normal Exhibits Abnormal Movement: No Attitude and Relatedness: Cooperative Eye Contact: Good - Speech Quality: Unpressured Latencies: Normal Quantity: Appropriate Patient's Decription of Mood: "Okay" Observed Affect: Fair Affect Consistent with: Euthymia Patient's Thought Process: Coherent Thought Content: No Passive Wish, No Suicidal Planning, No Homicidal Ideation, No Paranoid Ideation Experiencing Hallucinations: No, Sensorium is Clear Type of Hallucinations: Visual: No, Auditory: No, Command: No Level of Consciousness: Alert Orientation: Yes Intact, Yes Orientated to Time, Yes Orientated to Place, Yes Orientated to Person Impulse Control: Tenuous Insight and Judgement: Fair Impression - Impression Clinical Impression: 72 y.o. single, intellectually disabled, white female with a history of bipolar disorder currently admitted to the Hospitalist service for treatment of aspiration pneumonia who arrived at the hospital on March 21 with acute renal insufficiency and supratherapeutic lithium levels, presumably secondary to dehydration. The primary team is worried about the development of diabetes insipidus, secondary to lithium use, and are wondering if this agent should be discontinued in favor of a different mood stabilizer. Inpatient DSM-V Dx: F31.9 Merits Inpatient Hospitalization: No BSU: Problem List - Patient Problems (1) Bipolar disorder, unspecified Current Visit: Yes Status: Acute Priority: Low Code(s): F31.9 - BIPOLAR DISORDER, UNSPECIFIED SNOMED Code(s): 43332549 Plan - Treatment Plan Treatment Plan: It is this clinician's experience that acute renal insufficiencies can be followed by transient diabetes insipidus in lithium patients. Given the fact that the patient has been so stable on low dose lithium for such an extended period I am reluctant to recommend a change in agents. [place] demonstrates small but consistent superiority to antiepileptic mood stabilizers in the geriatric population and antipsychotic medications are to be minimized in elderly patients. I recommend continuation of lithium 300mg PO BID and follow up with the patient's outpatient primary care provider. These findings were discussed with the patient and her proxy. Psychiatry is signing off. Thank you for the consult. Continued Medication Management: Continue Outpt Medication Medications: Current Medications Acetaminophen (Tylenol Tab*) 650 mg PO Q6H PRN PRN Reason: FEVER/PAIN Albuterol/Ipratropium (Duoneb (Albuterol 2.5 Mg/Ipratropium 0.5 Mg)) 1 neb INH Q6H PRN PRN Reason: SOB/WHEEZING Atorvastatin Calcium (Lipitor*) 80 mg PO BEDTIME AMI Last Admin: 03/25/18 20:06 Dose: 80 mg Guaifenesin (Mucinex*) 1,200 mg PO BID AMI Last Admin: 03/26/18 08:05 Dose: 1,200 mg Heparin Sodium (Porcine) (Heparin Vial(*)) 5,000 units SUBCUT Q8HR AMI Last Admin: 03/26/18 13:21 Dose: 5,000 units Piperacillin Sod/Tazobactam (Sod 3.375 gm/ Sodium Chloride) 100 mls @ 25 mls/ hr IVPB Q8H AMI Last Admin: 03/26/18 08:11 Dose: 25 mls/hr Levothyroxine Sodium (Synthroid Tab*) 150 mcg PO QAM@0600 [facility] Last Admin: 03/26/18 05:21 Dose: 150 mcg Lisinopril (Prinivil Tab*) 2.5 mg PO DAILY [facility] Last Admin: 03/26/18 08:05 Dose: 2.5 mg [place] Carbonate ([place] Carbonate Tab*) 300 mg PO BID [facility] Last Admin: 03/26/18 08:05 Dose: 300 mg Mometasone Furoate (Asmanex 220 Mcg Mdi *) 2 puff INH QPM [facility] Last Admin: 03/25/18 19:18 Dose: 2 puff Multivitamins/Minerals (Theragran/Minerals Tab*) 1 tab PO DAILY [facility] Last Admin: 03/26/18 08:05 Dose: 1 tab Ondansetron HCl (Zofran Inj*) 4 mg IV Q6H PRN PRN Reason: NAUSEA Pantoprazole Sodium (Protonix Tab*) 40 mg PO DAILY [facility] Last Admin: 03/26/18 08:05 Dose: 40 mg Pharmacy Consult (Zosyn Per Pharmacy*) 1 note FOLLOW UP .ZOSYN PER PHARMACY [facility] Tiotropium [place] (Spiriva Cap.Inh*) 1 cap INH DAILY [facility] Last Admin: 03/26/18 08:11 Dose: 1 cap - Discharge Plan Discharge Plan: Outpatient Follow Up
[2018-03-26] MEDS: Mometasone 220 MCG MDI INH SCH (20:07)
[2018-03-26] MEDS: Atorvastatin* 80 MG TAB PO SCH (20:47)
[2018-03-27] MEDS: ZOSYN 3.375 GM Q8H per EXTENDED INFUSION IVPB SCH ×6 (01:25→17:15)
[2018-03-27] MEDS: Levothyroxine TAB* 150 MCG TAB PO SCH (05:57)
[2018-03-27] MEDS: Heparin VIAL(*) 5000 UNITS/ML VIAL (FIVE THOUSAND) SUBCUT SCH ×3 (05:57→21:59)
[2018-03-27 06:52] LABS: ABS Basophils 0.1 10^3/ul (0-0.2); ABS Eosinophils 0.3 10^3/ul (0-0.6); ABS Lymphocytes 1.3 10^3/ul (1.0-4.8); ABS Monocytes 0.3 10^3/ul (0-0.8); ABS Neutrophils 3.8 10^3/ul (1.5-7.7); ABS Nucleated RBC 0 10^3/ul; Eosinophil % 4.4 %; Hematocrit 32 % (35-47); Hemoglobin 10.5 g/dl (12.0-16.0); Mean Corpuscular HGB Conc 33 g/dl (31-36); Mean Corpuscular Hemoglobin 31 pg (27-31); Mean Corpuscular Volume 93 fL (80-97); Mean Platelet Volume 7.3 fL (7.4-10.4); Nucleated Red Blood Cells % 0; Platelet Count 396 10^3/ul (150-450); Red Blood Count 3.42 10^6/ul (4.00-5.40); Red Cell Distribution Width 16 % (10.5-15); White Blood Count 5.8 10^3/ul (3.5-10.8)
[2018-03-27 07:14] LABS: BUN/Creatinine Ratio 9.5 (8-20); Calcium 9.6 mg/dL (8.6-10.3); EGFR African American 69.6 (>60); EGFR Non-African American 57.5 (>60)
[2018-03-27] MEDS: Tiotropium CAP.INH* CAP.INH/18 MCG (USE ORDER SET !) INH SCH (07:56)
[2018-03-27] MEDS: Lisinopril TAB* 5 MG PO SCH (08:41)
[2018-03-27] MEDS: guaiFENesin ER TAB 600 MG PO SCH ×2 (08:42→21:59)
[2018-03-27] MEDS: Pantoprazole TAB * 40 MG TAB PO SCH (08:42)
[2018-03-27] MEDS: Multivitamins/Minerals TAB PO SCH (08:42)
[2018-03-27] MEDS: Lithium Carbonate TAB* 300 MG PO SCH ×2 (08:42→21:59)
[2018-03-27 09:18] LABS: Lithium 0.9 mmol/L (0.6-1.2)
--- NOTE | 2018-03-27 15:19 | PN ---
Subjective Date of Service: 03/27/18 Interval History: Patient sitting in chair coloring on assessment. Reports she would like to go home and "get back to work". Denies chest pain, palpitations, sob, sob, nausea, vomiting, fever/chills Family History: Unchanged from Admission Social History: Unchanged from Admission Past Medical History: Unchanged from Admission Objective Active Medications: Acetaminophen (Tylenol Tab*) 650 mg PO Q6H PRN PRN Reason: FEVER/PAIN Albuterol/Ipratropium (Duoneb (Albuterol 2.5 Mg/Ipratropium 0.5 Mg)) 1 neb INH Q6H PRN PRN Reason: SOB/WHEEZING Atorvastatin Calcium (Lipitor*) 80 mg PO BEDTIME [facility] Last Admin: 03/26/18 20:47 Dose: 80 mg Guaifenesin (Mucinex*) 1,200 mg PO BID [facility] Last Admin: 03/27/18 08:42 Dose: 1,200 mg Heparin Sodium (Porcine) (Heparin Vial(*)) 5,000 units SUBCUT Q8HR [facility] Last Admin: 03/27/18 14:06 Dose: 5,000 units Piperacillin Sod/Tazobactam (Sod 3.375 gm/ Sodium Chloride) 100 mls @ 25 mls/ hr IVPB Q8H [facility] Last Admin: 03/27/18 08:41 Dose: 25 mls/hr Levothyroxine Sodium (Synthroid Tab*) 150 mcg PO QAM@0600 [facility] Last Admin: 03/27/18 05:57 Dose: 150 mcg Lisinopril (Prinivil Tab*) 2.5 mg PO DAILY [facility] Last Admin: 03/27/18 08:41 Dose: 2.5 mg [place] Carbonate ([place] Carbonate Tab*) 300 mg PO BID [facility] Last Admin: 03/27/18 08:42 Dose: 300 mg Mometasone Furoate (Asmanex 220 Mcg Mdi *) 2 puff INH QPM [facility] Last Admin: 03/26/18 20:07 Dose: 2 puff Multivitamins/Minerals (Theragran/Minerals Tab*) 1 tab PO DAILY [facility] Last Admin: 03/27/18 08:42 Dose: 1 tab Ondansetron HCl (Zofran Inj*) 4 mg IV Q6H PRN PRN Reason: NAUSEA Pantoprazole Sodium (Protonix Tab*) 40 mg PO DAILY [facility] Last Admin: 03/27/18 08:42 Dose: 40 mg Pharmacy Consult (Zosyn Per Pharmacy*) 1 note FOLLOW UP .ZOSYN PER PHARMACY [facility] Tiotropium [place] (Spiriva Cap.Inh*) 1 cap INH DAILY [facility] Last Admin: 03/27/18 07:56 Dose: 1 cap Vital Signs - 8 hr 03/27/18 03/27/18 03/27/18 07:50 07:57 08:11 Temperature 97.4 F Pulse Rate 70 72 Respiratory 20 16 20 Rate Blood Pressure 119/62 (mmHg) O2 Sat by Pulse 96 100 Oximetry 03/27/18 12:06 Temperature 97.7 F Pulse Rate 78 Respiratory 16 Rate Blood Pressure 121/72 (mmHg) O2 Sat by Pulse 100 Oximetry Oxygen Devices in Use Now: Nasal Cannula Result Diagrams: 03/27/18 06:34 03/27/18 06:34 Microbiology and Other Data: Microbiology 03/21/18 12:50 Aerobic Blood Culture - Final Blood Venous No Growth Day 5 Anaerobic Blood Culture - Final No Growth Day 5 03/21/18 11:50 Aerobic Blood Culture - Final Blood Venous No Growth Day 5 Anaerobic Blood Culture - Final No Growth Day 5 03/21/18 12:36 Urine Culture - Final Urine No Growth (<1,000 CFU/mL) 03/22/18 07:40 Legionella Urinary Antigen - Final Urine Negative Legionella Antigen Streptococcus pneumoniae Ag Screen - Final Negative S. pneumo Antigen 03/21/18 11:48 Nasal Screen MRSA (PCR) - Final Nasal Mrsa Not Detected 03/21/18 11:48 Influenza Types A,B Antigen - Final Nasal Specimen received for Influenza A/B Molecular testing Assess/Plan/Problems-Billing Assessment: Ms. Cavanaugh is a 72 yo F with PMH of recent hospitalization from 03/08/18-03/19/18 for pneumonia with stay complicated by ventricular standstill s/p event monitor placement, acute urinary retention, developmental delay, COPD, and HTN; who presented after an episode of syncope and was admitted for concern for aspiration pneumonia. - Patient Problems (1) LANEY (acute kidney injury) Comment: - Resolved - Secondary to fluid volume deficit - Creatinine 1.9 on admission, now back at baseline (0.95) (2) Acute respiratory failure with hypoxia Comment: - Secondary to pneumonia - Requiring up to 5L NC on arrival to ED, now down to 2L - VQ scan unremarkable for PE; US of bilat LE unremarkable for DVT - Continue to wean oxygen - Plan as above (3) Aspiration pneumonia Comment: - CxR shows persistent but improving consolidation - Negative strep pneumo and legionella urine antigens; negative influenza swab - Speech therapy eval notes dysphagia, requiring nectar thick liquids - Continue Zosyn (day 6/7) (4) Bradycardia Comment: - Resolved - In the 50s on arrival to the ED; occasaionally dropping down to the 30s during episodes of coughing/gagging - Tele shows 4 second pause 03/22; based on the strip, this looks like it could have been a dropped beat, but difficult to decipher d/t artifact - Appreciate Cardiology consult; event monitor showing no evidence of pauses or significant bradycardia on admission, suspect this is all vasovagal - Continue to monitor on tele (5) COPD (chronic obstructive pulmonary disease) Comment: - Not in exacerbation - Continue mometasone, Spiriva (6) Polydipsia Comment: - With associated polyuria; had >5L out during 24hr urine - Likely secondary to diabetes insipidus; this could be transient d/t high lithium level on admission and LANEY, but she also displayed polydipsia last admission and was hypotensive on arrival to the ED; concerning that this may be a long-term issue and hypotension was secondary to polyuria/DI; if this is the case, she may continue to have episodes of hypotension if she is not able to maintain adqeuate fluid intake - Nephrology was consulted and would recommend allowing unlimited access to fluids after d/c; she can follow up with Dr. Boothe if this continues to be an issue (7) Syncope Comment: - Secondary to hypotension - Event monitor did not show any significant pauses - Plan as above (8) Bipolar depression Comment: - [place] level elevated on admission, likely secondary to dehydration; resolved - Appreciate Psych consult; recommends leaving her on lithium at this point, DI may be transient d/t supratherapeutic lithium level on admission - Continue lithium (9) Developmental delay, moderate Comment: - Supportive care (10) Hypertension Current Visit: No Status: Acute Code(s): I10 - ESSENTIAL (PRIMARY) HYPERTENSION SNOMED Code(s): 96415418 Comment: - Continue lisinopril at decreased dose (11) Hypothyroidism Comment: - Continue levothyroxine (12) Sepsis Comment: - Resolved - Secondary to pneumonia - Met sepsis 2 criteria on admission with tachypnea, leukocytosis, known source of infection, and persistent hypotension; met qSOFA criteria with tachypnea and AMS; met criteria for septic shock, but unclear if this was actually dental sales representative of sepsis or if hypotension was secondary to dehydration d/t high urine output - Recieved appropriate IVF bolus (13) DVT prophylaxis Comment: - Heparin SQ Status and Disposition: Inpatient. Anticipate d/c back to [facility] when medically stable, possibly tomorrow. Attending: Isidro Lee
[2018-03-27] MEDS: Mometasone 220 MCG MDI INH SCH ×2 (20:32→20:34)
[2018-03-27] MEDS: Atorvastatin* 80 MG TAB PO SCH (21:59)
--- NOTE | 2018-03-27 22:35 | DS ---
CC: Dr. Elif Luevano; Providers at [facility].* DISCHARGE SUMMARY: DATE OF ADMISSION: DATE OF DISCHARGE: PRIMARY CARE PROVIDERS: Dr. Elif Luevano and providers at [facility]. ATTENDING PHYSICIAN: Dr. Jung * (report dictated by Lenin Dee NP). PRIMARY DIAGNOSES: 1. Aspiration pneumonia. 2. Acute respiratory failure with hypoxia. 3. Polydipsia. 4. Sepsis. 5. Bradycardia. 6. Syncope. 7. Acute kidney injury. SECONDARY DIAGNOSES: 1. Hypertension. 2. Bipolar depression. 3. Developmental delay. 4. Chronic obstructive pulmonary disease. 5. Hypothyroid. CONSULTATIONS WHILE IN THE HOSPITAL: Dr. Tita Torres. PROCEDURES WHILE IN THE HOSPITAL: No procedures. STUDIES WHILE IN THE HOSPITAL: 1. Chest x-ray: Impression: Persistent but improving small multifocal consolidation. 2. Transthoracic echocardiogram: Impression: Left ventricle chamber size is mildly dilated. Left ventricle wall motion and contractility are within normal limits. Ejection fraction is 55% to 60%. Right ventricular global systolic function is low normal. Aortic valve leaflets are mildly thickened with normal function. Trace to mild mitral regurgitation. Mild tricuspid regurgitation. 3. Lung V/Q scan: Impression: Low probability for pulmonary embolism. 4. Venous Doppler: No right lower extremity deep vein thrombosis. No left lower extremity deep vein thrombosis. DISCHARGE HOME MEDICATIONS: [place] Medications: No new home medications. Continued Home Medications: 1. Zofran 4 mg p.o. 6 hours p.r.n. 2. Albuterol/ipratropium neb solution 1 neb inhalation q.6 hours p.r.n. 3. Tylenol 650 mg p.o. q.6 hours p.r.n. 4. Omeprazole 20 mg p.o. b.i.d. 5. Blackey 300 mg p.o. b.i.d. 6. Mucinex 1200 mg p.o. b.i.d. 7. Flovent 1 puff p.o. b.i.d. 8. Multivitamin 1 tab p.o. daily. 9. Levothyroxine 150 mcg p.o. q.a.m. 10. Incruse 1 puff inhalation daily. 11. Lipitor 80 mg p.o. at bedtime. Changed Home Medication: 1. Lisinopril 5 mg p.o. daily was changed to 2.5 mg p.o. daily. Discontinued Home Medication: No home medications discontinued. HISTORY OF PRESENT ILLNESS/HOSPITAL COURSE: The patient presented to the emergency department on 03/21/18 after she was found unresponsive in [facility]. She was sent to the hospital via EMS. EMS found her to be profoundly hypotensive. In addition, she was also hypoxic requiring 3 L of oxygen via mask to keep her sats above 92%. Patient was also found to have an elevated white count. Patient was admitted to the hospital with concern for aspiration pneumonia. Patient was given a fluid bolus, antibiotics, and pancultured while in the emergency room. Vasopressins were not initiated as patient's MAP was 67. As the syncope was most likely caused by patient's hypotension and dehydration, but due to nature of unresponsiveness and constellation of symptoms , patient was admitted to ICU. During this hospital stay, patient continued to receive treatment for her aspiration pneumonia. In addition, patient's implanted cvicu rn was interrogated and there was no evidence of any significant bradycardia or pauses that would have contributed to her loss of consciousness, further evaluation was initiated and patient was found to most likely be experiencing diabetes insipidus, which was suspected to be transient due to high lithium level on admission and acute kidney injury. As for the diabetes insipidus, Nephrology was consulted who recommended allowing an unlimited access to fluids after DC and followup with Dr. Boothe if this continues to be an issue. Since it is suspected that high lithium level is causing diabetes insipidus, Psych was also consulted who recommended continuing lithium as this has worked well for the patient for years. Finally, patient was noted to have LANEY on admission which contributed to the situation resolved with IV fluids. Patient's creatinine is now at her baseline. As for aspiration pneumonia, as of today patient will have completed 7 days of Zosyn. Patient should continue nectar-thick liquids due to dysphagia. As for respiratory failure with hypoxia, as previously mentioned, patient was worked up for pulmonary embolism which was negative. We suspect this is secondary to her pneumonia. Patient initially requiring 5 L nasal cannula while in the emergency department. Patient has been successfully weaned to room air. Ms. Cavanaugh is stable for discharge today. REVIEW OF SYSTEMS: Patient's 14-point review of systems was completed and all are negative. Patient reports she is ready to go home and "get back to work." PHYSICAL EXAMINATION: General: Ms. Cavanaugh is a well-developed, well-nourished, slightly obese woman sitting on the recliner, in no acute distress. Appears stated age. VS: 97.2, HR 90, RR 14, O2 sat 100% room air, 129/54. HEENT: PERRLA. EOMs intact. Oral mucosa is moist without lesion. Tonsils without erythema or exudate. Pharynx is clear. Neck: Full range of motion. No lymphadenopathy. Respiratory: Symmetrical chest expansion. No accessory muscle use. Lungs are clear to auscultation. No rhonchi, wheezes or rales. CV : Regular rate and rhythm. S1, S2 present. No murmurs, rubs, or gallops. Extremities: Skin is warm and smooth bilaterally. No edema. Pedal pulses 2+ bilaterally. Musculoskeletal: Full range of motion. No pain or deformities. Abdomen: Soft, nontender to palpation. Bowel sounds normoactive. Neuro: Awake, alert and oriented. No focal deficits. Skin: Grossly intact without lesions. DISCHARGE PLAN/FOLLOWUP: 1. Aspiration pneumonia: As previously mentioned, patient has completed a 7- day course of Zosyn, therefore, no addition abx needed at this time. Patient should continue a nectar-thick diet with aspiration precautions while at [facility]. 2. Respiratory failure/hypoxia: As previously mentioned, patient was successfully weaned to room air. Patient should be routinely monitored. 3. Polydipsia secondary to diabetes insipidus: Patient should be allowed unlimited access to fluids and encouraged to drink water routinely. I would encourage the staff at [facility] to provide the patient with a measured cup and routinely fill this, so patient has adequate hydration to avoid a repeat episode of hypotension and syncope. 4. Sepsis: This has resolved. 5. Syncope: As previously mentioned, this is secondary to hypotension as her event monitor did not show any significant pauses. As previously mentioned, please encourage fluid intake, specifically water as much as possible. 6. Acute kidney injury: This has resolved, but to avoid a recurrent episode, patient should be encouraged to drink fluid. 7. Hypertension: Patient was admitted due to syncope secondary to hypotension. We have decreased patient's lisinopril to 2.5 mg daily. Patient is normotensive currently. This should be monitored routinely and adjusted as needed. 8. Bipolar depression: Blackey level was elevated on admission secondary to dehydration and acute kidney injury. Patient's lithium level was redrawn yesterday, 03/27/18 and was 0.9. Given patient's delicate status, I would repeat this routinely, possibly in the next week or two, to avoid another episode of hypotension, polydipsia, syncope. 9. Developmentally delayed: Supportive care. 10. Chronic obstructive pulmonary disease: Patient to continue home medications as the same. 11. Hypothyroid: Patient should continue home meds as the same. 12. Followup: Follow up with her primary care provider in 1 week and Nephrology in 2 to 3 wks This is a summarized report of a complex medical history and hospital stay. For further details, please see the entire medical record. TIME SPENT: Approximately 45 minutes were spent on this discharge, greater than half that time was spent [id number] with the patient discussing discharge plan and instructions. LENIN DEE, [place]ARTINA [id number]/[facility] #: [id number] CLARK
[2018-03-28] MEDS: ZOSYN 3.375 GM Q8H per EXTENDED INFUSION IVPB SCH ×4 (00:41→09:17)
[2018-03-28] MEDS: Levothyroxine TAB* 150 MCG TAB PO SCH (05:42)
[2018-03-28] MEDS: Heparin VIAL(*) 5000 UNITS/ML VIAL (FIVE THOUSAND) SUBCUT SCH (05:42)
[2018-03-28 06:37] LABS: ABS Basophils 0.1 10^3/ul (0-0.2); ABS Eosinophils 0.2 10^3/ul (0-0.6); ABS Lymphocytes 1.4 10^3/ul (1.0-4.8); ABS Monocytes 0.4 10^3/ul (0-0.8); ABS Neutrophils 4.6 10^3/ul (1.5-7.7); ABS Nucleated RBC 0 10^3/ul; Eosinophil % 3.3 %; Hematocrit 33 % (35-47); Lymphocyte % 21.5 %; Mean Corpuscular HGB Conc 34 g/dl (31-36); Mean Corpuscular Hemoglobin 31 pg (27-31); Mean Corpuscular Volume 93 fL (80-97); Mean Platelet Volume 7.9 fL (7.4-10.4); Nucleated Red Blood Cells % 0.1; Platelet Count 394 10^3/ul (150-450); Red Blood Count 3.54 10^6/ul (4.00-5.40); Red Cell Distribution Width 17 % (10.5-15); White Blood Count 6.7 10^3/ul (3.5-10.8)
[2018-03-28] MEDS: guaiFENesin ER TAB 600 MG PO SCH (09:16)
[2018-03-28] MEDS: Lisinopril TAB* 5 MG PO SCH (09:16)
[2018-03-28] MEDS: Pantoprazole TAB * 40 MG TAB PO SCH (09:17)
[2018-03-28] MEDS: Multivitamins/Minerals TAB PO SCH (09:17)
[2018-03-28] MEDS: Lithium Carbonate TAB* 300 MG PO SCH (09:17)
[2018-03-28] MEDS: Tiotropium CAP.INH* CAP.INH/18 MCG (USE ORDER SET !) INH SCH (09:45)
[2018-03-28 11:59] VITALS: BP 114/64
[2018-03-29 13:58] LABS: Renin 12 ng/mL/h
== END 2018-03-28 13:30 | DRG 871 ==
LOC: ED 11:26 → MEDTELE 14:35 → OBSVTOIN 03-22 14:48
PROVIDERS: ADMIT Internal Medicine; ATTEND Internal Medicine
PROC: 4B02XSZ Measurement of Cardiac Pacemaker, External Approach (ICD-10-PCS; principal; 2018-03-22)
DX: A41.9 Sepsis, unspecified organism (principal); J96.01 Acute respiratory failure with hypoxia; J69.0 Pneumonitis due to inhalation of food and vomit; N17.9 Acute kidney failure, unspecified; E23.2 Diabetes insipidus; E87.1 Hypo-osmolality and hyponatremia; I44.2 Atrioventricular block, complete; E03.9 Hypothyroidism, unspecified; T43.595A Adverse effect of other antipsychotics and neuroleptics, initial encounter; R00.1 Bradycardia, unspecified; I08.1 Rheumatic disorders of both mitral and tricuspid valves; R62.50 Unspecified lack of expected normal physiological development in childhood; R33.9 Retention of urine, unspecified; E78.5 Hyperlipidemia, unspecified; D47.3 Essential (hemorrhagic) thrombocythemia; J43.9 Emphysema, unspecified; J30.2 Other seasonal allergic rhinitis; R91.8 Other nonspecific abnormal finding of lung field; R13.10 Dysphagia, unspecified; E86.0 Dehydration; I10 Essential (primary) hypertension; G47.30 Sleep apnea, unspecified; K21.9 Gastro-esophageal reflux disease without esophagitis; M19.049 Primary osteoarthritis, unspecified hand; H26.9 Unspecified cataract; H35.30 Unspecified macular degeneration; H55.00 Unspecified nystagmus; F41.9 Anxiety disorder, unspecified; E83.52 Hypercalcemia; F31.9 Bipolar disorder, unspecified; Z90.710 Acquired absence of both cervix and uterus; Z87.891 Personal history of nicotine dependence; Z87.01 Personal history of pneumonia (recurrent); Z95.0 Presence of cardiac pacemaker; Z86.74 Personal history of sudden cardiac arrest; Y92.9 Unspecified place or not applicable; Z87.440 Personal history of urinary (tract) infections; Z86.010 Personal history of colon polyps
CPT/HCPCS: 36415; 71045; 78582; 80048; 80053; 80178; 81003; 81015; 82088; 82436; 82533; 82570; 82803; 83605; 83880; 83930; 83935; 84133; 84244; 84300; 84443; 84484; 84540; 85025; 85379; 85610; 85730; 86140; 87040; 87086; 87641; 87899; 93005; 93306; 93970; 94640; 99285; A9270-GY; A9540; A9558; G0378; G8978-GP-CK; G8979-GP-CI; G8996-GN-CK; G8997-GN-CK; J1644; J2543; J3370

== ENCOUNTER 2018-12-02 10:05 | Emergency (ER) | payer MEDICARE, MEDICAID ==
--- OUTSIDE RECORDS SUMMARY | 2018-12-02 10:10 | XMS REPORT | Continuity of Care Document ---
:1945 External Reference #:[id number] Author Name Jenny Antoine M.D. (transmitted by agent of provider Rina Jalloh) Address [address] [facility] [address] [place] [address] Care Team Providers Name Role Phone Lydia Mayen MD - Pulmonary Care Team Information Hand Fur Cleaner Disease Jeff Beaulieu MD - Child & Care Team Information Hand Fur Cleaner [phone] Adolescent Psychiatry Problems Active Problems Provider Date Chronic obstructive lung disease Elif Luevano M.D. Onset: 12/21/2009 Mixed hyperlipidemia Elif Luevano M.D. Onset: 11/29/2012 Hypothyroidism Elif Luevano M.D. Onset: 11/29/2012 Essential hypertension Elif Luevano M.D. Onset: 02/02/2015 Bipolar disorder Elif Luevano M.D. Onset: 02/02/2015 Moderate intellectual disability Elif Luevano M.D. Onset: 08/14/2018 Social History Type Date Description Comments Sex Unknown Tobacco Use Start: Unknown End: Former Cigarette Smoker Unknown Smoking Status Reviewed: 10/08/18 Former Cigarette Smoker ETOH Use Denies alcohol use Tobacco Use Start: Unknown End: Patient is a former Quit smoking at age Unknown smoker 58, started as a teen, smoked 1 ppd - about 40 pack yr, quit 09/10/03 Recreational Drug Use Denies Drug Use Exercise Type/Frequency Exercises regularly Allergies, Adverse Reactions, Alerts Active Allergies Reaction Severity Comments Date No Known Drug Allergy 10/14/2009 Medications Active Medications SIG Qnty Indications Ordering Date Provider Flonase Allergy use two sprays in 16units Elif 08/14/2018 Relief each nostril in Mino Luevano 50mcg/Act the morning Suspension Arnuity Ellipta 1 puff Daily 30units Lydia Mayen, 07/26/2018 100mcg/Act Aerosol Lisinopril 1 by mouth every 90tabs Qutaybeh S. 04/12/2018 2.5mg day Mino Antoine Tablets Attends Briefs Small As needed R32 Elif 04/09/2018 Mino Luevano [facility] Bacitracin apply to skin 28.400gm Elif 09/13/2016 (External) twice daily as Mino Luevano 500Unit/GM needed Ointment Omeprazole take 1 cap 60caps Elif 03/23/2016 20mg capsule by mouth Mino Luevano Capsules DR every morning and 1 capsule by mouth at bedtime Vitamin D one daily 90tabs Jagjit ESuzette 11/16/2015 (Cholecalciferol) Mino Dunaway 1000Unit Tablets Atorvastatin Calcium take one tablet 90tabs Jagjit ESuzette 09/08/2015 by mouth every Mino Dunaway 80mg Tablets day Hearing Aid Battery use as directed 4units [facility] 02/27/2015 hearing aid Mino Luevano [facility] services. Incruse Ellipta one inhalation 30units J44.9 Elif 02/02/2015 every day Mino Luevano 62.5mcg/Inh Aerosol Spacer for [facility] J44.9 [facility] 07/25/2014 inhalers Mino Luevano Tylenol 1-2 by mouth 120tabs Elif 04/03/2012 325mg Tablets every 4-6 hrs as Mino Luevano needed for pain [place] Carbonate 1 by mouth twice 60caps Elif 10/14/2009 daily Mino Luevano 300mg Capsules Oxygen 2 liters at hs Unknown Levothyroxine Sodium take one tablet 90tabs Elif by mouth every Mino Luevano 150mcg Tablets day Multi Complete daily Jagjit E. Mino Dunaway Capsules Medications Administered in Office Medication SIG Qnty Indications Ordering Provider Date PPD Nurse Visit A 02/07/2018 Injection ASTRID Luevano M.D. 02/08/2016 Injection Jasmin Patel M.D. 12/12/2007 Injection Jasmin Patel M.D. 08/29/2006 Injection Jasmin Patel M.D. 08/29/2006 Injection Immunizations CPT Code Status Date Vaccine Lot # [id number] Given 11/23/2017 Influenza Virus Vaccine, Quadrivalent, Split, [id number] Preservative Free 03016 Given 01/27/2014 Pneumococcal Conjugate Vaccine 13 Valent For [id number] Intramuscular Use 05239 Given 01/10/2014 Flu Vaccine Split Virus Preservative Free For [id number] Indiv 3Yr Older 55866 Given 11/29/2012 Flu Vaccine Split Virus Preservative Free For [id number] Indiv 3Yr Older Q2038 Given 11/28/2011 Fluzone Vaccine [id number] 58983 Given 04/25/2011 Tdap - Tetanus/Diptheria/Acellular Pertussis [id number] Q2035 Given 11/23/2010 Afluria Vaccine [id number] 28386 Given 12/05/2009 Influenza Virus 3Yrs & Over 00491 Given 10/16/2009 Pneumonia Vaccine 88738 Given 02/27/2009 Influenza Virus Vaccine, Pandemic Formulation 85273 Given 10/13/2008 Influenza Virus 3Yrs & Over 37016 Given 12/12/2007 Influenza Virus 3Yrs & Over 72637 Given 12/12/2007 Influenza Virus 3Yrs & Over 35234 Given 11/29/2006 Influenza Virus 3Yrs & Over 72753 Given 08/29/2006 Tetanus And Diptheria (Td) For Adult Use Preservative Free Vital Signs Date Vital Result Comment 10/08/2018 3:52pm Height 58 inches 4'10" Weight 137.00 lb with shoes Heart Rate 66 /min BP Systolic Sitting 130 mmHg Lue reg cuff BP Diastolic Sitting 70 mmHg Lue reg cuff BP Systolic Standing 124 mmHg Lue reg cuff BP Diastolic Standing 70 mmHg Lue reg cuff Respiratory Rate 16 /min BMI (Body Mass Index) 28.6 kg/m2 Ejection Fraction 55-60% date 03/21/18 ECHO 09/26/2018 8:54am Height 58 inches 4'10" Weight 138.00 lb Heart Rate 68 /min BP Systolic 120 mmHg BP Diastolic 82 mmHg Respiratory Rate 18 /min O2 % BldC Oximetry 97 % BMI (Body Mass Index) 28.8 kg/m2 Results Test Date Facility Test Result H/L Range Note Pthi 05/07/2018 [facility] Calcium (PTH 10.2 mg/dL Normal 8.6- 10.[address] Intact) [place] [address] [phone] PTH Intact 4.1 pmol/L Normal 1.3-9.3 Laboratory test 05/07/2018 [facility] Vitamin D 47.7 Normal 20 -[address] Total ng/[place] [address] 25(Oh) [phone] Protein 05/07/2018 [facility] Total 7.0 g/dL 6.3 - Electrophoresis [address] Protein(Pep 7.9 [place] [address] ) [phone] Albumin 3.4 g/dL 3.4-4.7 Alpha-1 Globulin 0.2 g/dL 0.1-0.3 Alpha-2 Globulin 1.2 g/dL Abnormal 0.6-1.0 Beta Globulin 1.1 g/dL 0.7-1.2 Gamma Globulin 1.1 g/dL 0.6-1.6 Albumin/Globulin Ratio 0.93 Impression See Comment 1 1 RESULT: No apparent monoclonal protein on serum electrophoresis. Test Performed by: [facility] [address] [place] [address] Procedures Date Code Description Status 06/23/2018 89113 Sleep Study Unattended,HRT Rate,Oxygen Sat,Resp Completed Effort/Airflow 05/29/2018 61124 Loop Recorder Device Eval W/Iterative Adj Implant Loop Completed Recorder 05/29/2018 89100 Loop Recorder Device Eval W/Iterative Adj Implant Loop Completed Recorder 05/08/2017 [id number] Mammogram Completed 07/05/2016 [id number] Colonoscopy Completed 07/08/2015 [id number] Mammogram Completed 02/14/2014 [id number] Mammogram Completed 04/04/2013 [id number] Bone Mineral Density Test Completed 12/28/2012 [id number] Mammogram Completed 12/20/2011 [id number] Mammogram Completed 03/22/2011 [id number] Colonoscopy Completed 12/16/2010 [id number] Mammogram Completed 11/17/2009 [id number] Bone Mineral Density Test Completed 11/17/2009 [id number] Mammogram Completed 10/19/2001 [id number] Colonoscopy Completed Medical Devices Description No Information Available Encounters Type Date Location Provider Dx Diagnosis Office Visit 09/26/2018 [facility] Evie G47.33 Obstructive sleep 9:00a [facility] apnea (adult) [facility] (pediatric) J44.9 Chronic obstructive pulmonary disease, unspecified J98.4 Other disorders of lung Office Visit 08/14/2018 9:00a [facility] Internal Elif I10 Essential ( primary) Juayn Luevano M.D. hypertension [facility] L98.9 Disorder of the skin and subcutaneous tissue, unspecified G47.33 Obstructive sleep apnea (adult) (pediatric) F31.89 Other bipolar disorder Office Visit 07/11/2018 10:45a [facility] Lydia J44.9 Chronic [facility] obstructive [facility] pulmonary disease, unspecified G47.33 Obstructive sleep apnea (adult) (pediatric) J98.4 Other disorders of lung Office Visit 05/29/2018 3:30p [facility] Karoline Nash, R00.1 Bradycardia, [facility] CHIEF OPERATOR unspecified J44.9 Chronic obstructive pulmonary disease, unspecified N17.9 Acute kidney failure, unspecified I10 Essential (primary) hypertension Office Visit 05/14/2018 [facility] Elif I10 Essential 2:20p Juany-Franca Luevano M.D. (primary) hypertension J44.9 Chronic obstructive pulmonary disease, unspecified R13.10 Dysphagia, unspecified L98.9 Disorder of the skin and subcutaneous tissue, unspecified Assessments Date Code Description Provider 10/08/2018 G47.33 Obstructive sleep apnea (adult) Jenny Antoine M.D. (pediatric) 10/08/2018 J44.9 Chronic obstructive pulmonary disease, Jenny Antoine M.D. unspecified 10/08/2018 I10 Essential (primary) hypertension Jenny Antoine M.D. 10/08/2018 R00.1 Bradycardia, unspecified Jenny Antoine M.D. 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 09/26/2018 G47.33 Obstructive sleep apnea (adult) Evie Pedraza NP (pediatric) 09/26/2018 J44.9 Chronic obstructive pulmonary disease, Evie Pedraza NP unspecified 09/26/2018 J98.4 Other disorders of lung Evie Pedraza NP 08/14/2018 I10 Essential (primary) hypertension Elif Luevano M.D. 08/14/2018 L98.9 Disorder of the skin and subcutaneous Elif Luevano M.D. tissue, unspecified 08/14/2018 G47.33 Obstructive sleep apnea (adult) Elif Luevano M.D. (pediatric) 08/14/2018 F31.89 Other bipolar disorder Elif Luevano M.D. 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 05/14/2018 J44.9 Chronic obstructive pulmonary disease, Elif Luevano M.D. unspecified 05/14/2018 R13.10 Dysphagia, unspecified Elif Luevano M.D. 05/14/2018 L98.9 Disorder of the skin and subcutaneous Elif Luevano M.D. tissue, unspecified Plan of Treatment Future Appointment(s):12/05/2018 2:00 pm - Evie Pedraza NP at [facility]12/07/2018 9:20 am - Elif Luevano M.D. at [facility] Medicine - [facility]10/08/2018 - Jenny Antoine M.D.G47.33 Obstructive sleep apnea (adult) (pediatric)J44.9 Chronic obstructive pulmonary disease, [id number] Essential (primary) tplmqtzhkfjoX74.1 Bradycardia, unspecifiedFollow up:6 months ov CHIEF OPERATOR one yr ov with meZ95.818 Presence of other cardiac implants and kjqqrqR34.5 Hyperlipidemia, unspecified Functional Status Description No Information Available Mental Status Description No Information Available Referrals Description No Information Available
[2018-12-02 10:13] VITALS: BP 144/86
--- NOTE | 2018-12-02 10:23 | UC ---
Skin Complaint HPI - HPI Summary HPI Summary: 1 wk ago scarped her L hand on door knob. There was some bleeding but yesterday her L hand started to get swollen and somewhat painful. - History of Current Complaint Chief Complaint: UCSkin Time Seen by Provider: 12/02/18 10:16 Stated Complaint: HAND LACERATION Hx Obtained From: Patient, Family/Production Artist Pain Intensity: 4 Pain Scale Used: 0-10 Numeric Aggravating Factor(s): Touch Alleviating Factor(s): Nothing - Allergy/Home Medications Allergies/Adverse Reactions: Allergies Allergy/AdvReac Type Severity Reaction Status Date / Time No Known Allergies Allergy Verified 12/02/18 10:14 Home Medications: Home Medications Fluticasone Furoate [Arnuity Ellipta] 100 mcg PO DAILY 12/02/18 [History Confirmed 12/02/18] PMH/Surg Hx/FS Hx/Imm Hx Previously Healthy: Yes Endocrine History: Thyroid Disease Cardiovascular History: Hypertension Psychological History: Other - Surgical History Surgical History: Yes Surgery Procedure, Year, and Place: HYSTERECTOMY- 1988- [facility]. 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 Negative: Rash Musculoskeletal: Positive: Edema, Myalgia Physical Exam Triage Information Reviewed: Yes Vital Signs: Initial Vital Signs Temp 98 F 12/02/18 10:10 Pulse 92 12/02/18 10:10 Resp 18 12/02/18 10:10 BP 144/86 12/02/18 10:10 Pulse Ox 98 12/02/18 10:10 Vital Signs Reviewed: Yes Respiratory: Positive: No respiratory distress Musculoskeletal: Positive: Strength Intact, ROM Intact - L hand, Edema @ - MCP of L hand swollen and slightly erythematous. Skin: Positive: Breakdown - maceration between first and second finger, Other - deep abrasion between first and second finger Course/Dx - Course Course Of Treatment: Deep L hand abrasion between first and second finger, mostly on dorsal side 1 wk ago. Appears to be getting infected so will tx w/ antibiotics but has good vitals. Able to clean wound and use tegaderm for protection. Gave instructions to nurse at retirement to monitor for worsening symptoms and fever. - Differential Diagnoses - Skin Complaint Differential Diagnoses: Abscess, Cellulitis, Other - Diagnoses Provider Diagnosis: Abrasion Discharge ED - Sign-Out/Discharge Documenting (check all that apply): Patient Departure All imaging exams completed and their final reports reviewed: No Studies - Discharge Plan Condition: Good Disposition: HOME Prescriptions: Cephalexin CAP* [Keflex CAP*] 500 mg PO QID 7 Days #21 cap Patient Education Materials: Abrasion (ED) Referrals: Elif Luevano MD [Primary Care Provider] - Additional Instructions: Please keep area dry for the next week. Please start antibiotics vitaly. Please return if redness worsens or fever develops. Please check temperature daily for one week. - Billing Disposition and Condition Condition: GOOD Disposition: Home
== END 2018-12-02 10:49 | disposition home or self-care (01) ==
LOC: UCEAST 10:05
DX: S61.412A Laceration without foreign body of left hand, initial encounter (principal); S60.512A Abrasion of left hand, initial encounter; I10 Essential (primary) hypertension; Z87.891 Personal history of nicotine dependence; W22.8XXA Striking against or struck by other objects, initial encounter; Y92.9 Unspecified place or not applicable
CPT/HCPCS: 99212; G0463

== ENCOUNTER 2021-02-14 17:29 | Inpatient (IN) ==
[2021-02-14] MEDS ORDERED: NS 0.9% 1000 ml BAG 1,000 ML IV ONE ×2 (18:12→19:17)
[2021-02-14 18:37] LABS: ABS Lymphocytes 0.8 10^3/ul (1.0-4.8); ABS Monocytes 0.5 10^3/ul (0-0.8); ABS Neutrophils 7.8 10^3/ul (1.5-7.7); Hematocrit 37 % (35-47); Hemoglobin 12.6 g/dL (12.0-16.0); Lymphocyte % 9.2 %; Mean Corpuscular HGB Conc 34 g/dL (31-36); Mean Corpuscular Hemoglobin 32 pg (27-31); Mean Corpuscular Volume 95 fL (80-97); Mean Platelet Volume 7.5 fL (7.4-10.4); Platelet Count 330 10^3/uL (150-450); Red Blood Count 3.89 10^6 /uL (3.70-4.87); Red Cell Distribution Width 15 % (10-15); White Blood Count 9.1 10^3/uL (3.5-10.8)
[2021-02-14 19:01] LABS: Albumin 4.3 g/dL (3.2-5.2); Albumin/Globulin Ratio 1.3 (1-3); Calcium 11.2 mg/dL (8.6-10.3); Globulin 3.2 g/dL (2-4); Magnesium 2.5 mg/dL (1.9-2.7); Potassium 4.7 mmol/L (3.5-5.0); Total Bilirubin 0.6 mg/dL (0.2-1.0); Total Protein 7.5 g/dL (6.4-8.9); Troponin I 0.01 ng/mL (<0.03); eGFR CKD-EPI 54.7 (>60)
[2021-02-14 21:01] LABS: Urine Appearance Clear; Urine Bilirubin Negative (Negative); Urine Blood Negative (Negative); Urine Color Straw; Urine Glucose Negative (Negative); Urine Ketones Negative (Negative); Urine Nitrite Negative (Negative); Urine Protein Negative (Negative); Urine Specific Gravity 1.004 (1.002-1.030); Urine Urobilinogen Negative (Negative)
[2021-02-14 21:17] LABS: TSH Ultra Thyroid Stim Horm 0.15 mcIU/mL (0.34-5.60)
[2021-02-14] MEDS ORDERED: NS 0.9% 1000 ml BAG 1,000 ML IV SCH (22:15)
[2021-02-14 22:27] LABS: Free T4 1.17 ng/dL (0.61-1.12)
[2021-02-15] MEDS: Enoxaparin 40 MG/0.4 ML SYR SUBCUT SCH ×2 (00:01→22:05)
[2021-02-15] MEDS ORDERED: NS 0.9% 1000 ml BAG 1,000 ML IV SCH (01:05)
[2021-02-15 06:33] LABS: ABS Lymphocytes 0.6 10^3/ul (1.0-4.8); ABS Monocytes 0.4 10^3/ul (0-0.8); ABS Neutrophils 6.6 10^3/ul (1.5-7.7); Hematocrit 33 % (35-47); Hemoglobin 11.4 g/dL (12.0-16.0); Lymphocyte % 8.2 %; Mean Corpuscular HGB Conc 34 g/dL (31-36); Mean Corpuscular Hemoglobin 33 pg (27-31); Mean Corpuscular Volume 96 fL (80-97); Mean Platelet Volume 7.5 fL (7.4-10.4); Platelet Count 295 10^3/uL (150-450); Red Blood Count 3.49 10^6 /uL (3.70-4.87); Red Cell Distribution Width 14 % (10-15); White Blood Count 7.6 10^3/uL (3.5-10.8)
[2021-02-15 06:54] LABS: Calcium 10.4 mg/dL (8.6-10.3); Potassium 4.3 mmol/L (3.5-5.0); eGFR CKD-EPI 60.2 (>60)
[2021-02-15 10:32] LABS: Calcium 10.6 mg/dL (8.6-10.3); eGFR CKD-EPI 58.7 (>60)
[2021-02-15] MEDS ORDERED: D5W 1000 ml BAG 1,000 ML IV SCH ×2 (14:00→22:11)
[2021-02-15] MEDS: Mometasone 220 MCG MDI INH SCH (19:36)
[2021-02-15] MEDS: D5W 1000 ml BAG 1,000 ML IV SCH (22:55)
[2021-02-15 23:23] LABS: Osmolality Serum 339 mOsm/kg (275-295)
[2021-02-16] MEDS: D5W 1000 ml BAG 1,000 ML IV SCH ×2 (01:24→22:32)
[2021-02-16 03:48] LABS: ABS Monocytes 0.7 10^3/ul (0-0.8); ABS Neutrophils 7.4 10^3/ul (1.5-7.7); Eosinophil % 0.1 %; Hematocrit 39 % (35-47); Hemoglobin 12.9 g/dL (12.0-16.0); Lymphocyte % 10.4 %; Mean Corpuscular HGB Conc 33 g/dL (31-36); Mean Corpuscular Hemoglobin 32 pg (27-31); Mean Corpuscular Volume 97 fL (80-97); Mean Platelet Volume 7.4 fL (7.4-10.4); Nucleated Red Blood Cells % 0.1; Platelet Count 333 10^3/uL (150-450); Red Blood Count 3.99 10^6 /uL (3.70-4.87); Red Cell Distribution Width 15 % (10-15); White Blood Count 9.1 10^3/uL (3.5-10.8)
[2021-02-16 03:59] LABS: Potassium 4.1 mmol/L (3.5-5.0)
[2021-02-16 04:05] LABS: eGFR CKD-EPI 49.6 (>60)
[2021-02-16 06:28] LABS: Calcium 10.8 mg/dL (8.6-10.3); Potassium 3.9 mmol/L (3.5-5.0)
[2021-02-16 06:33] LABS: eGFR CKD-EPI 51.8 (>60)
[2021-02-16 10:40] LABS: Calcium 10.8 mg/dL (8.6-10.3); Potassium 3.7 mmol/L (3.5-5.0); eGFR CKD-EPI 51.8 (>60)
[2021-02-16 15:29] LABS: Potassium 3.8 mmol/L (3.5-5.0)
[2021-02-16 19:39] LABS: Urine Appearance Clear; Urine Bilirubin Negative (Negative); Urine Blood 2+ (Negative); Urine Color Yellow; Urine Glucose Negative (Negative); Urine Ketones Negative (Negative); Urine Nitrite Negative (Negative); Urine Protein Negative (Negative); Urine Specific Gravity 1.006 (1.002-1.030); Urine Urobilinogen Negative (Negative)
[2021-02-16 19:41] LABS: Urine Bacteria 1+ (Absent); Urine Red Blood Cell Trace(0-2/hpf) (Absent); Urine White Blood Cell 1+(6-10/hpf) (Absent)
[2021-02-16] MEDS: Enoxaparin 40 MG/0.4 ML SYR SUBCUT SCH (20:08)
[2021-02-16] MEDS: Mometasone 220 MCG MDI INH SCH (20:18)
[2021-02-17 05:58] LABS: ABS Lymphocytes 1.2 10^3/ul (1.0-4.8); ABS Monocytes 0.4 10^3/ul (0-0.8); ABS Neutrophils 6.5 10^3/ul (1.5-7.7); Eosinophil % 0.2 %; Hematocrit 37 % (35-47); Hemoglobin 12.6 g/dL (12.0-16.0); Lymphocyte % 14.6 %; Mean Corpuscular HGB Conc 34 g/dL (31-36); Mean Corpuscular Hemoglobin 33 pg (27-31); Mean Corpuscular Volume 96 fL (80-97); Mean Platelet Volume 7.8 fL (7.4-10.4); Platelet Count 319 10^3/uL (150-450); Red Blood Count 3.86 10^6 /uL (3.70-4.87); Red Cell Distribution Width 14 % (10-15); White Blood Count 8.1 10^3/uL (3.5-10.8)
[2021-02-17 06:26] LABS: Calcium 10.1 mg/dL (8.6-10.3); Potassium 3.5 mmol/L (3.5-5.0); eGFR CKD-EPI 48.6 (>60)
[2021-02-17 12:07] LABS: Calcium 9.9 mg/dL (8.6-10.3); Potassium 3.9 mmol/L (3.5-5.0); eGFR CKD-EPI 50.1 (>60)
[2021-02-17 14:57] LABS: Lithium 0.85 mmol/L (0.6-1.2)
[2021-02-17] MEDS: Mometasone 220 MCG MDI INH SCH ×2 (20:43→20:45)
[2021-02-17] MEDS: Enoxaparin 40 MG/0.4 ML SYR SUBCUT SCH (22:09)
[2021-02-18 06:20] LABS: ABS Lymphocytes 1.2 10^3/ul (1.0-4.8); ABS Monocytes 0.5 10^3/ul (0-0.8); ABS Neutrophils 6.7 10^3/ul (1.5-7.7); Eosinophil % 0.3 %; Hematocrit 41 % (35-47); Hemoglobin 12.9 g/dL (12.0-16.0); Lymphocyte % 13.9 %; Mean Corpuscular HGB Conc 32 g/dL (31-36); Mean Corpuscular Hemoglobin 33 pg (27-31); Mean Corpuscular Volume 103 fL (80-97); Mean Platelet Volume 7.4 fL (7.4-10.4); Nucleated Red Blood Cells % 0.1; Platelet Count 306 10^3/uL (150-450); Red Blood Count 3.95 10^6 /uL (3.70-4.87); Red Cell Distribution Width 16 % (10-15); White Blood Count 8.3 10^3/uL (3.5-10.8)
[2021-02-18 06:33] LABS: CO2 Carbon Dioxide 21 mmol/L (22-32); Calcium 9.9 mg/dL (8.6-10.3)
[2021-02-18 06:39] LABS: Blood Urea Nitrogen 25 mg/dL (6-24); Glucose 98 mg/dL (70-100); eGFR CKD-EPI 50.1 (>60)
[2021-02-18 06:40] LABS: Chloride 119 mmol/L (101-111); Sodium 146 mmol/L (135-145)
[2021-02-18 08:01] LABS: Anion Gap 6 mmol/L (2-11)
[2021-02-18] MEDS: Mometasone 220 MCG MDI INH SCH (19:35)
[2021-02-18] MEDS: Enoxaparin 40 MG/0.4 ML SYR SUBCUT SCH (20:16)
[2021-02-19 06:07] LABS: ABS Monocytes 0.7 10^3/ul (0-0.8); ABS Neutrophils 9.9 10^3/ul (1.5-7.7); Eosinophil % 0.2 %; Hematocrit 38 % (35-47); Hemoglobin 12.9 g/dL (12.0-16.0); Lymphocyte % 8.7 %; Mean Corpuscular HGB Conc 34 g/dL (31-36); Mean Corpuscular Hemoglobin 33 pg (27-31); Mean Corpuscular Volume 95 fL (80-97); Mean Platelet Volume 8.2 fL (7.4-10.4); Platelet Count 306 10^3/uL (150-450); Red Blood Count 3.97 10^6 /uL (3.70-4.87); Red Cell Distribution Width 14 % (10-15); White Blood Count 11.7 10^3/uL (3.5-10.8)
[2021-02-19 06:26] LABS: Calcium 10.3 mg/dL (8.6-10.3); Potassium 3.7 mmol/L (3.5-5.0)
[2021-02-19 14:52] LABS: Calcium 9.8 mg/dL (8.6-10.3); Potassium 3.7 mmol/L (3.5-5.0)
[2021-02-19 16:20] VITALS: BP 107/71
[2021-02-19] MEDS: Mometasone 220 MCG MDI INH SCH (20:25)
== END 2021-02-19 18:17 | disposition home or self-care (01) | DRG 918 ==
LOC: ED 17:29 → SUATTDRO 22:17 → EDHOLD 22:17 → MEDTELE 02-15 13:20
PROVIDERS: ADMIT Hospitalist; ATTEND Hospitalist

== ENCOUNTER 2021-03-05 18:31 | Inpatient (IN) ==
[2021-03-05 19:46] LABS: ABS Lymphocytes 0.4 10^3/ul (1.0-4.8); ABS Monocytes 0.8 10^3/ul (0-0.8); ABS Neutrophils 17.6 10^3/ul (1.5-7.7); Hematocrit 32 % (35-47); Lymphocyte % 2.2 %; Mean Corpuscular HGB Conc 35 g/dL (31-36); Mean Corpuscular Hemoglobin 32 pg (27-31); Mean Corpuscular Volume 92 fL (80-97); Mean Platelet Volume 7.1 fL (7.4-10.4); Platelet Count 370 10^3/uL (150-450); Red Blood Count 3.42 10^6 /uL (3.70-4.87); Red Cell Distribution Width 15 % (10-15); White Blood Count 18.8 10^3/uL (3.5-10.8)
[2021-03-05 20:00] LABS: Activated Partial Thrombo Time 39.6 seconds (26.0-38.0); INR 1.18 (0.86-1.15)
[2021-03-05] MEDS ORDERED: Vancomycin 1,500 MG in NS 0.9% 250 ml 250 ML IVPB ONE (20:00)
[2021-03-05] MEDS ORDERED: Cefepime 1 GM in Dextrose 1 GM/50 ML BAG IV ONE (20:00)
[2021-03-05 20:04] LABS: Chloride 92 mmol/L (101-111); Sodium 124 mmol/L (135-145)
[2021-03-05 20:05] LABS: ALT 29 U/L (7-52); AST 41 U/L (13-39); Albumin 3.7 g/dL (3.2-5.2); Albumin/Globulin Ratio 1.1 (1-3); Alkaline Phosphatase 112 U/L (35-149); Blood Urea Nitrogen 32 mg/dL (6-24); C Reactive Protein 148.45 mg/L (<8.01); CO2 Carbon Dioxide 25 mmol/L (22-32); Calcium 9.2 mg/dL (8.6-10.3); Globulin 3.3 g/dL (2-4); Glucose 126 mg/dL (70-100)
[2021-03-05 20:06] LABS: Troponin I 0.01 ng/mL (<0.03)
[2021-03-05 20:10] LABS: Anion Gap 7 mmol/L (2-11); Potassium 5.3 mmol/L (3.5-5.0)
[2021-03-05 20:35] LABS: Urine Appearance Cloudy; Urine Bilirubin Negative (Negative); Urine Blood 1+ (Negative); Urine Color Yellow; Urine Glucose Negative (Negative); Urine Ketones Negative (Negative); Urine Nitrite Negative (Negative); Urine Protein 1+(30 mg/dL) (Negative); Urine Specific Gravity 1.006 (1.002-1.030); Urine Urobilinogen Negative (Negative)
[2021-03-05 20:41] LABS: Urine Bacteria 1+ (Absent); Urine Red Blood Cell 1+(3-5/hpf) (Absent); Urine White Blood Cell 3+(>20/hpf) (Absent)
[2021-03-05] MEDS ORDERED: Enoxaparin 40 MG/0.4 ML SYR SUBCUT SCH (23:30)
[2021-03-05 23:34] LABS: Lithium < 0.10 mmol/L (0.6-1.2)
[2021-03-06] MEDS ORDERED: Lactated Ringers 1000 ml BAG 1,000 ML IV SCH (01:00)
[2021-03-06] MEDS: Ondansetron 4 mg VIAL 2 MG/ML 2 ml VIAL IV PRN ×2 (05:18→11:47)
[2021-03-06] MEDS ORDERED: cefTRIAXone 1 gm/50 mL NS BAG 1 GM/50 ML BAG IVPB SCH (06:00)
[2021-03-06] MEDS: SPIRIVA Respimat (tiotropium) 2.5 mcg/inh Inhaler INH SCH (09:38)
[2021-03-06 10:49] LABS: ABS Lymphocytes 0.4 10^3/ul (1.0-4.8); ABS Monocytes 0.7 10^3/ul (0-0.8); ABS Neutrophils 18.8 10^3/ul (1.5-7.7); Hematocrit 33 % (35-47); Hemoglobin 11.2 g/dL (12.0-16.0); Lymphocyte % 2.2 %; Mean Corpuscular HGB Conc 34 g/dL (31-36); Mean Corpuscular Hemoglobin 32 pg (27-31); Mean Corpuscular Volume 95 fL (80-97); Platelet Count 349 10^3/uL (150-450); Red Blood Count 3.46 10^6 /uL (3.70-4.87); Red Cell Distribution Width 15 % (10-15)
[2021-03-06 10:59] LABS: Albumin 3.7 g/dL (3.2-5.2); Calcium 9.3 mg/dL (8.6-10.3); Total Bilirubin 0.8 mg/dL (0.2-1.0)
[2021-03-06 11:02] LABS: Potassium 5.2 mmol/L (3.5-5.0)
[2021-03-06 11:06] LABS: Albumin/Globulin Ratio 1.1 (1-3); C Reactive Protein 272.52 mg/L (<8.01); Globulin 3.4 g/dL (2-4); Total Protein 7.1 g/dL (6.4-8.9); eGFR CKD-EPI 32.3 (>60)
[2021-03-06] MEDS ORDERED: cefTRIAXone 1 gm/50 mL NS BAG 1 GM/50 ML BAG IVPB ONE (11:30)
[2021-03-06] MEDS: Mometasone 220 MCG MDI INH SCH (19:23)
[2021-03-06] MEDS: Enoxaparin 30 MG/0.3 ML SYR SUBCUT SCH (20:18)
[2021-03-07] MEDS: SPIRIVA Respimat (tiotropium) 2.5 mcg/inh Inhaler INH SCH (08:14)
[2021-03-07] MEDS: cefTRIAXone 2 GM ADDV.VIAL 2 GM in NS 0.9% 100 ml BAG 100 ML IV SCH (08:15)
[2021-03-07 09:51] LABS: Calcium 9.1 mg/dL (8.6-10.3); Magnesium 2.3 mg/dL (1.9-2.7); Potassium 4.4 mmol/L (3.5-5.0); eGFR CKD-EPI 40.1 (>60)
[2021-03-07 10:05] LABS: C Reactive Protein 271.24 mg/L (<8.01)
[2021-03-07 10:42] LABS: ABS Lymphocytes 0.4 10^3/ul (1.0-4.8); ABS Monocytes 0.6 10^3/ul (0-0.8); ABS Neutrophils 7.6 10^3/ul (1.5-7.7); Eosinophil % 0.1 %; Hematocrit 30 % (35-47); Hemoglobin 10.3 g/dL (12.0-16.0); Lymphocyte % 4.7 %; Mean Corpuscular HGB Conc 35 g/dL (31-36); Mean Corpuscular Hemoglobin 33 pg (27-31); Mean Corpuscular Volume 94 fL (80-97); Mean Platelet Volume 7.7 fL (7.4-10.4); Platelet Count 319 10^3/uL (150-450); Red Blood Count 3.16 10^6 /uL (3.70-4.87); Red Cell Distribution Width 16 % (10-15); White Blood Count 8.6 10^3/uL (3.5-10.8)
[2021-03-07] MEDS: Enoxaparin 30 MG/0.3 ML SYR SUBCUT SCH (20:11)
[2021-03-07] MEDS: Mometasone 220 MCG MDI INH SCH (20:12)
[2021-03-08 05:20] LABS: ABS Lymphocytes 0.6 10^3/ul (1.0-4.8); ABS Monocytes 0.7 10^3/ul (0-0.8); ABS Neutrophils 6.4 10^3/ul (1.5-7.7); Eosinophil % 0.1 %; Hematocrit 28 % (35-47); Hemoglobin 9.8 g/dL (12.0-16.0); Lymphocyte % 7.5 %; Mean Corpuscular HGB Conc 35 g/dL (31-36); Mean Corpuscular Hemoglobin 33 pg (27-31); Mean Corpuscular Volume 94 fL (80-97); Mean Platelet Volume 7.4 fL (7.4-10.4); Platelet Count 303 10^3/uL (150-450); Red Blood Count 2.95 10^6 /uL (3.70-4.87); Red Cell Distribution Width 15 % (10-15); White Blood Count 7.7 10^3/uL (3.5-10.8)
[2021-03-08 05:29] LABS: Albumin 3.2 g/dL (3.2-5.2); Albumin/Globulin Ratio 0.9 (1-3); C Reactive Protein 183.93 mg/L (<8.01); Calcium 8.8 mg/dL (8.6-10.3); Globulin 3.5 g/dL (2-4); Potassium 3.8 mmol/L (3.5-5.0); Total Bilirubin 0.6 mg/dL (0.2-1.0); Total Protein 6.7 g/dL (6.4-8.9); eGFR CKD-EPI 60.2 (>60)
[2021-03-08] MEDS: cefTRIAXone 2 GM ADDV.VIAL 2 GM in NS 0.9% 100 ml BAG 100 ML IV SCH (06:02)
[2021-03-08] MEDS: SPIRIVA Respimat (tiotropium) 2.5 mcg/inh Inhaler INH SCH (09:48)
[2021-03-08 11:23] VITALS: BP 127/82
[2021-03-08 19:52] LABS: Hepatitis A Ab IgM Negative (Negative); Hepatitis B Core IgM Nonreactive (Nonreactive)
[2021-03-08 20:04] LABS: Hepatitis C Antibody Negative (Negative)
[2021-03-09 13:15] LABS: Hepatitis B Surface Antigen Nonreactive (Nonreactive)
== END 2021-03-08 14:25 | disposition home or self-care (01) | DRG 872 ==
LOC: ED 18:31 → SSU 18:31 → SUATTDRO 22:56 → SSU 03-06 01:28 → SUATTDRO 03-06 10:46 → SSU 03-06 15:35
PROVIDERS: ADMIT Internal Medicine; ATTEND Family Medicine

== ENCOUNTER 2023-07-24 19:28 | Inpatient (IN) ==
[2023-07-24 19:49] LABS: ABS Lymphocytes 1.9 10^3/uL (1.0-4.8); ABS Monocytes 0.6 10^3/uL (0.0-0.9); ABS Neutrophils 4.4 10^3/uL (1.5-7.6); Hematocrit 36.9 % (35-45); Hemoglobin 12.4 g/dL (11.5-14.3); Lymphocyte % 27.4 %; Mean Corpuscular Hgb Conc 33.7 g/dL (31-36); Mean Corpuscular Volume 98.1 fL (80-97); Mean Platelet Volume 7.1 fL (7.5-11.2); Nucleated Red Blood Cells % 0.1 %/100WBC (0.0-0.8); Platelet Count 369 10^3/uL (150-450); Red Blood Count 3.76 10^6/uL (3.63-4.92); Red Cell Distribution Width 14.6 % (12-17); White Blood Count 6.8 10^3/uL (3.8-11.8)
[2023-07-24 20:02] LABS: Activated Partial Thrombo Time 45.8 seconds (26.0-38.0); INR 0.97 (0.83-1.13)
[2023-07-24] MEDS: NS 0.9% 1000 ml BAG 1,000 ML IV ONE (20:10)
[2023-07-24 20:27] LABS: Albumin 4.1 g/dL (3.2-5.2); Albumin/Globulin Ratio 1.4 (1-3); Calcium 9.8 mg/dL (8.6-10.3); Creatinine, Serum 1.05 mg/dL (0.51-0.95); Direct Bilirubin 0.1 mg/dL (0.03-0.18); HDL Cholesterol 70.2 mg/dL; Indirect Bilirubin 0.4 mg/dL (0.3-1.0); Potassium 4.5 mmol/L (3.5-5.0); Total Bilirubin 0.5 mg/dL (0.2-1.0); Total Protein 7.1 g/dL (6.4-8.9)
[2023-07-24] MEDS ORDERED: LORazepam 2 MG/ML 1 mL Syringe ONE (20:57)
[2023-07-24] MEDS ORDERED: Rocuronium 50 mg VIAL 10 mg/ml 5 ml VIAL (50 mg) ONE ×2 (21:00→21:10)
[2023-07-24] MEDS ORDERED: Succinylcholine 200 mg VIAL 20 mg/ml 10 ml VIAL (200 mg) ONE (21:00)
[2023-07-24] MEDS ORDERED: Propofol 10 mg/ml 100 ML BTL 1,000 MG/100 ML BTL ONE (21:01)
[2023-07-24] MEDS ORDERED: levETIRAcetam 1000MG IVPREMIX 1,000 MG/100 ML BAG ONE (21:09)
[2023-07-24] MEDS ORDERED: Etomidate 40 mg/20 ml (2 MG/ML) 20 ml VIAL (40 mg) ONE (21:10)
[2023-07-24] MEDS: levETIRAcetam 1000MG IVPREMIX 1,000 MG/100 ML BAG IVPB SCH (21:20)
[2023-07-24 21:52] LABS: Urine Appearance Turbid; Urine Bilirubin Negative (Negative); Urine Blood Negative (Negative); Urine Color Light-Yellow; Urine Glucose Negative (Negative); Urine Ketones Negative (Negative); Urine Nitrite 1+ (Negative); Urine Protein Negative (Negative); Urine Specific Gravity 1.006 (1.002-1.030); Urine Urobilinogen Negative (Negative); Urine pH 5.5 (5.0-8.0)
[2023-07-24] MEDS: Propofol 10 mg/ml 100 ML BTL 1,000 MG/100 ML BTL IV SCH (22:17)
[2023-07-24 22:38] LABS: Urine Bacteria 1+ /HPF (Absent); Urine Red Blood Cell 1+(3-5/hpf) /HPF (0-Trace); Urine White Blood Cell 2+(11-20/hpf) /HPF (0-Trace)
[2023-07-24 23:20] LABS: TSH Ultra Thyroid Stim Horm 0.48 mcIU/mL (0.34-5.60)
[2023-07-24 23:26] LABS: Prolactin 66.1 ng/mL (1.0-25.0)
[2023-07-25 00:13] LABS: High Sensitivity Troponin 1 Hr 55 pg/mL (<15)
[2023-07-25] MEDS: cefTRIAXone 1 gm/50 mL D5W 1 GM/50 ML BAG IV ONE (01:23)
[2023-07-25 03:00] LABS: High Sensitivity Troponin 3 Hr 573 pg/mL (<15)
[2023-07-25] MEDS: Chlorhexidine MOUTHWASH 0.12% 15 ML UDC TOPICAL SCH (03:25)
[2023-07-25] MEDS: Enoxaparin 40 MG/0.4 ML SYR SUBCUT SCH (03:26)
[2023-07-25] MEDS: Lactated Ringers 1000 ml BAG 1,000 ML IV SCH (03:27)
[2023-07-25 04:27] LABS: Creatinine, Serum 0.95 mg/dL (0.51-0.95); Magnesium 2.1 mg/dL (1.9-2.7); Potassium 3.9 mmol/L (3.5-5.0); eGFR CKD-EPI 60.9 (>60)
[2023-07-25 04:28] LABS: ABS Lymphocytes 1.2 10^3/uL (1.0-4.8); ABS Monocytes 0.6 10^3/uL (0.0-0.9); ABS Neutrophils 7.2 10^3/uL (1.5-7.6); ABS Nucleated RBC 0.01 10^3/ul; Hematocrit 33.3 % (35-45); Hemoglobin 11.3 g/dL (11.5-14.3); Lymphocyte % 12.9 %; Mean Corpuscular Hemoglobin 33.5 pg (27-33); Mean Corpuscular Volume 98.5 fL (80-97); Mean Platelet Volume 7.6 fL (7.5-11.2); Nucleated Red Blood Cells % 0.1 %/100WBC (0.0-0.8); Platelet Count 324 10^3/uL (150-450); Red Blood Count 3.38 10^6/uL (3.63-4.92); Red Cell Distribution Width 14.6 % (12-17); White Blood Count 8.9 10^3/uL (3.8-11.8)
[2023-07-25] MEDS: Levothyroxine 100 MCG/5 ML VIAL IV SCH (05:16)
[2023-07-25] MEDS: fentaNYL 100 mcg/2 ml 50 MCG/ML VIAL IV SLOW PU PRN ×2 (08:10→10:40)
[2023-07-25] MEDS: levETIRAcetam 500 MG IVPREMIX 500 MG/100 ML BAG IV SCH (09:34)
[2023-07-25] MEDS ORDERED: Sulfur Hexaflouride MICROSPHR 25 MG VIAL ONE (09:34)
[2023-07-25] MEDS: Famotidine IV 10 MG/ML 2 ml VIAL (20 mg) IV SLOW PU SCH (09:36)
[2023-07-25] MEDS: Sulfur Hexaflouride MICROSPHR 25 MG VIAL IV ONE (10:55)
[2023-07-25 11:26] LABS: High Sensitivity Troponin 1 Hr 540 pg/mL (<15)
[2023-07-25] MEDS: SPIRIVA Respimat (tiotropium) 2.5 mcg/inh Inhaler INH SCH (11:35)
[2023-07-25] MEDS: Enoxaparin 80 MG/0.8 ML SYR SUBCUT SCH (16:09)
[2023-07-25] MEDS: Metoprolol Tartrate 5 mg VIAL 5 ml VIAL (1 mg/ml) IV SCH (17:40)
[2023-07-25] MEDS: Gadoteridol (CONTRAST) 279.3 MG/ML 10 ML IV ONE (22:12)
[2023-07-26] MEDS: cefTRIAXone 1 gm/50 mL D5W 1 GM/50 ML BAG IV SCH (00:21)
[2023-07-26 04:58] LABS: ABS Lymphocytes 0.8 10^3/uL (1.0-4.8); ABS Monocytes 0.7 10^3/uL (0.0-0.9); ABS Neutrophils 6.4 10^3/uL (1.5-7.6); Hematocrit 30.2 % (35-45); Hemoglobin 10.4 g/dL (11.5-14.3); Lymphocyte % 9.6 %; Mean Corpuscular Hemoglobin 33.8 pg (27-33); Mean Corpuscular Hgb Conc 34.4 g/dL (31-36); Mean Corpuscular Volume 98.1 fL (80-97); Mean Platelet Volume 7.4 fL (7.5-11.2); Platelet Count 263 10^3/uL (150-450); Red Blood Count 3.08 10^6/uL (3.63-4.92); White Blood Count 7.8 10^3/uL (3.8-11.8)
[2023-07-26 05:41] LABS: Calcium 8.8 mg/dL (8.6-10.3); Creatinine, Serum 0.98 mg/dL (0.51-0.95); Magnesium 1.9 mg/dL (1.9-2.7); Potassium 3.5 mmol/L (3.5-5.0); eGFR CKD-EPI 58.7 (>60)
[2023-07-26] MEDS: Levothyroxine 100 MCG/5 ML VIAL IV SCH (06:05)
[2023-07-26] MEDS: Magnesium Sulfate 2 gm BAG 2 GM/50 ML BAG IVPB ONE (08:13)
[2023-07-26] MEDS: KCL 20 MEQ/100 ML IVPREMIX 20 MEQ/100 ML BAG IV SCH (09:51)
[2023-07-26] MEDS ORDERED: EPINEPHrine,Rac 2.25% NEB.SOL 0.5 ML INH PRN (13:44)
[2023-07-26] MEDS: Lactated Ringers 1000 ml BAG 1,000 ML IV ONE (19:05)
[2023-07-26 22:38] LABS: Calcium 8.9 mg/dL (8.6-10.3); Potassium 3.8 mmol/L (3.5-5.0); eGFR CKD-EPI 57.3 (>60)
[2023-07-27] MEDS: D5W 1/2 NS 1000 ml BAG 1,000 ML IV SCH (03:10)
[2023-07-27 04:27] LABS: ABS Lymphocytes 0.8 10^3/uL (1.0-4.8); ABS Monocytes 0.5 10^3/uL (0.0-0.9); ABS Nucleated RBC 0.01 10^3/ul; Hematocrit 31.5 % (35-45); Hemoglobin 10.5 g/dL (11.5-14.3); Lymphocyte % 11.1 %; Mean Corpuscular Hgb Conc 33.3 g/dL (31-36); Mean Corpuscular Volume 99.1 fL (80-97); Mean Platelet Volume 7.5 fL (7.5-11.2); Nucleated Red Blood Cells % 0.1 %/100WBC (0.0-0.8); Platelet Count 299 10^3/uL (150-450); Red Blood Count 3.18 10^6/uL (3.63-4.92); Red Cell Distribution Width 15.1 % (12-17); White Blood Count 7.3 10^3/uL (3.8-11.8)
[2023-07-27 05:12] LABS: Calcium 8.8 mg/dL (8.6-10.3); Creatinine, Serum 1.05 mg/dL (0.51-0.95); Magnesium 2.3 mg/dL (1.9-2.7); Potassium 3.7 mmol/L (3.5-5.0)
[2023-07-27 07:10] LABS: Urine Appearance Clear; Urine Bilirubin Negative (Negative); Urine Blood Negative (Negative); Urine Color Light-Yellow; Urine Glucose Negative (Negative); Urine Ketones Negative (Negative); Urine Nitrite Negative (Negative); Urine Protein Negative (Negative); Urine Specific Gravity 1.008 (1.002-1.030); Urine Urobilinogen Negative (Negative)
[2023-07-27 07:41] LABS: Urine Bacteria 1+ /HPF (Absent); Urine Red Blood Cell Trace(0-2/hpf) /HPF (0-Trace); Urine Squamous Epithelial Cell Present /HPF (Absent); Urine White Blood Cell Trace(0-5/hpf) /HPF (0-Trace)
[2023-07-27] MEDS: Famotidine IV 10 MG/ML 2 ml VIAL (20 mg) IV SLOW PU SCH (12:38)
[2023-07-27] MEDS: D5W 1000 ml BAG 1,000 ML IV SCH (12:52)
[2023-07-27] MEDS: Metoprolol Tartrate 5 mg VIAL 5 ml VIAL (1 mg/ml) IV SCH (12:54)
[2023-07-27 16:53] LABS: Calcium 7.9 mg/dL (8.6-10.3); Creatinine, Serum 0.95 mg/dL (0.51-0.95); eGFR CKD-EPI 60.9 (>60)
[2023-07-27] MEDS: KCL 20 MEQ/100 ML IVPREMIX 20 MEQ/100 ML BAG IV SCH (17:07)
[2023-07-27] MEDS: Mometasone 220 MCG MDI INH SCH (19:11)
[2023-07-27] MEDS ORDERED: OLANZapine 10 mg TAB*ODT FEED TUBE SCH (21:00)
[2023-07-28] MEDS: Metoprolol Tartrate 5 mg VIAL 5 ml VIAL (1 mg/ml) IV SCH (00:56)
[2023-07-28] MEDS: Levothyroxine 100 MCG/5 ML VIAL IV SCH (05:12)
[2023-07-28 05:31] LABS: ABS Lymphocytes 0.9 10^3/uL (1.0-4.8); ABS Monocytes 0.3 10^3/uL (0.0-0.9); Hematocrit 32.1 % (35-45); Hemoglobin 10.7 g/dL (11.5-14.3); Lymphocyte % 17.1 %; Mean Corpuscular Hemoglobin 33.8 pg (27-33); Mean Corpuscular Hgb Conc 33.5 g/dL (31-36); Mean Corpuscular Volume 100.9 fL (80-97); Mean Platelet Volume 7.3 fL (7.5-11.2); Platelet Count 282 10^3/uL (150-450); Red Blood Count 3.18 10^6/uL (3.63-4.92); Red Cell Distribution Width 14.8 % (12-17); White Blood Count 5.2 10^3/uL (3.8-11.8)
[2023-07-28 06:15] LABS: Creatinine, Serum 0.97 mg/dL (0.51-0.95); Magnesium 2.2 mg/dL (1.9-2.7); Potassium 4.1 mmol/L (3.5-5.0); eGFR CKD-EPI 59.4 (>60)
[2023-07-28] MEDS ORDERED: D5W 1000 ml BAG 1,000 ML IV SCH (07:00)
[2023-07-28] MEDS: D5W 1000 ml BAG 1,000 ML IV SCH ×2 (08:05→17:43)
[2023-07-28] MEDS: Lactated Ringers 1000 ml BAG 1,000 ML IV ONE (09:43)
[2023-07-28] MEDS ORDERED: Enoxaparin 40 MG/0.4 ML SYR SUBCUT SCH (13:00)
[2023-07-28 15:48] LABS: Calcium 9.4 mg/dL (8.6-10.3); Creatinine, Serum 0.99 mg/dL (0.51-0.95); Potassium 3.9 mmol/L (3.5-5.0)
[2023-07-29 00:07] LABS: Potassium 3.6 mmol/L (3.5-5.0); eGFR CKD-EPI 57.3 (>60)
[2023-07-29] MEDS: D5W 1000 ml BAG 1,000 ML IV SCH (02:47)
[2023-07-29] MEDS: Enoxaparin 40 MG/0.4 ML SYR SUBCUT SCH (05:27)
[2023-07-29 06:43] LABS: ABS Lymphocytes 1.1 10^3/uL (1.0-4.8); ABS Monocytes 0.5 10^3/uL (0.0-0.9); ABS Neutrophils 3.7 10^3/uL (1.5-7.6); Hematocrit 33.4 % (35-45); Lymphocyte % 20.3 %; Mean Corpuscular Hemoglobin 33.3 pg (27-33); Mean Corpuscular Volume 100.9 fL (80-97); Mean Platelet Volume 7.3 fL (7.5-11.2); Nucleated Red Blood Cells % 0.1 %/100WBC (0.0-0.8); Platelet Count 273 10^3/uL (150-450); Red Blood Count 3.31 10^6/uL (3.63-4.92); Red Cell Distribution Width 14.9 % (12-17); White Blood Count 5.3 10^3/uL (3.8-11.8)
[2023-07-29 07:57] LABS: Calcium 8.9 mg/dL (8.6-10.3); Creatinine, Serum 0.98 mg/dL (0.51-0.95); Potassium 3.5 mmol/L (3.5-5.0); eGFR CKD-EPI 58.7 (>60)
[2023-07-29] MEDS: Aspirin EC 81 mg TAB.EC (enteric coated) PO SCH (10:19)
[2023-07-29 10:23] LABS: Urine Osmo 168 mOsm/kg (150-1150)
[2023-07-29 10:41] LABS: Osmolality Serum 326 mOsm/kg (275-295)
[2023-07-29 20:48] LABS: Calcium 8.9 mg/dL (8.6-10.3); Creatinine, Serum 0.93 mg/dL (0.51-0.95); Potassium 3.7 mmol/L (3.5-5.0); eGFR CKD-EPI 62.5 (>60)
[2023-07-30 06:03] LABS: ABS Monocytes 0.4 10^3/uL (0.0-0.9); ABS Neutrophils 3.3 10^3/uL (1.5-7.6); ABS Nucleated RBC 0.02 10^3/ul; Hematocrit 31.6 % (35-45); Hemoglobin 10.5 g/dL (11.5-14.3); Lymphocyte % 20.1 %; Mean Corpuscular Hemoglobin 32.5 pg (27-33); Mean Corpuscular Hgb Conc 33.1 g/dL (31-36); Mean Corpuscular Volume 98.3 fL (80-97); Mean Platelet Volume 7.6 fL (7.5-11.2); Nucleated Red Blood Cells % 0.3 %/100WBC (0.0-0.8); Platelet Count 270 10^3/uL (150-450); Red Blood Count 3.21 10^6/uL (3.63-4.92); Red Cell Distribution Width 14.7 % (12-17); White Blood Count 4.7 10^3/uL (3.8-11.8)
[2023-07-30 06:31] LABS: Calcium 8.5 mg/dL (8.6-10.3); Creatinine, Serum 0.97 mg/dL (0.51-0.95); Magnesium 1.8 mg/dL (1.9-2.7); Potassium 3.8 mmol/L (3.5-5.0); eGFR CKD-EPI 59.4 (>60)
[2023-07-30] MEDS ORDERED: Zosyn per Pharmacy NOTE FOLLOW UP PRN (12:15)
[2023-07-30] MEDS: Magnesium Sulfate 2 gm BAG 2 GM/50 ML BAG IVPB ONE (12:35)
[2023-07-30] MEDS: TAZOBAC ADVAN IV ONE (14:02)
[2023-07-30] MEDS: PIPERACILLIN IV ONE (14:02)
[2023-07-30] MEDS: D5W IV ONE (14:02)
[2023-07-30] MEDS: TAZOBACTAM IV SCH (17:33)
[2023-07-30] MEDS: PIPERACILLIN IV SCH (17:33)
[2023-07-30] MEDS: DEXTROSE IV SCH (17:33)
[2023-07-30] MEDS: [UNRECOGNIZED DRUG - OTHER] IV SCH (17:33)
[2023-07-31 05:01] LABS: ABS Lymphocytes 1.1 10^3/uL (1.0-4.8); ABS Monocytes 0.5 10^3/uL (0.0-0.9); ABS Neutrophils 3.5 10^3/uL (1.5-7.6); ABS Nucleated RBC 0.01 10^3/ul; Eosinophil % 0.1 %; Hematocrit 30.7 % (35-45); Hemoglobin 10.5 g/dL (11.5-14.3); Lymphocyte % 21.3 %; Mean Corpuscular Hemoglobin 33.5 pg (27-33); Mean Corpuscular Hgb Conc 34.1 g/dL (31-36); Mean Corpuscular Volume 98.2 fL (80-97); Mean Platelet Volume 7.4 fL (7.5-11.2); Nucleated Red Blood Cells % 0.2 %/100WBC (0.0-0.8); Platelet Count 252 10^3/uL (150-450); Red Blood Count 3.13 10^6/uL (3.63-4.92); Red Cell Distribution Width 14.5 % (12-17); White Blood Count 5.2 10^3/uL (3.8-11.8)
[2023-07-31 05:55] LABS: Albumin 3.1 g/dL (3.2-5.2); Albumin/Globulin Ratio 1.1 (1-3); Calcium 8.9 mg/dL (8.6-10.3); Creatinine, Serum 1.06 mg/dL (0.51-0.95); Globulin 2.7 g/dL (2-4); Magnesium 2.4 mg/dL (1.9-2.7); Total Bilirubin 0.7 mg/dL (0.2-1.0); Total Protein 5.8 g/dL (6.4-8.9); eGFR CKD-EPI 53.4 (>60)
[2023-07-31] MEDS: Desmopressin Acetate 4 MCG/ML 1 ML SDV IV ONE (10:27)
[2023-07-31] MEDS ORDERED: Regadenoson 0.4 MG/5 ML SYRINGE ONE (12:43)
[2023-07-31] MEDS ORDERED: Aminophylline 25 MG/ML VIAL ONE (12:43)
[2023-07-31 13:14] LABS: Urine Osmo 141 mOsm/kg (150-1150)
[2023-07-31 13:14] LABS: Urine Osmo 137 mOsm/kg (150-1150)
[2023-07-31] MEDS: D5W 1000 ml BAG 1,000 ML IV SCH (14:32)
[2023-07-31] MEDS: LORazepam 2 mg VIAL 1 ml ONE (14:57)
[2023-07-31] MEDS: Sulfur Hexaflouride MICROSPHR 25 MG VIAL IV ONE (18:01)
[2023-07-31 21:34] LABS: Calcium 8.8 mg/dL (8.6-10.3); Creatinine, Serum 0.89 mg/dL (0.51-0.95); Potassium 3.4 mmol/L (3.5-5.0); eGFR CKD-EPI 65.9 (>60)
[2023-08-01 05:49] LABS: Calcium 9.3 mg/dL (8.6-10.3); Creatinine, Serum 0.88 mg/dL (0.51-0.95); Potassium 3.6 mmol/L (3.5-5.0); eGFR CKD-EPI 66.8 (>60)
[2023-08-01] MEDS: D5W 1000 ml BAG 1,000 ML IV SCH ×2 (09:38→10:05)
[2023-08-02 14:51] LABS: ABS Lymphocytes 1.1 10^3/uL (1.0-4.8); ABS Monocytes 0.3 10^3/uL (0.0-0.9); ABS Neutrophils 3.8 10^3/uL (1.5-7.6); ABS Nucleated RBC 0.01 10^3/ul; Hematocrit 32.7 % (35-45); Hemoglobin 10.7 g/dL (11.5-14.3); Lymphocyte % 20.5 %; Mean Corpuscular Hemoglobin 31.8 pg (27-33); Mean Corpuscular Hgb Conc 32.7 g/dL (31-36); Mean Corpuscular Volume 97.3 fL (80-97); Mean Platelet Volume 7.7 fL (7.5-11.2); Nucleated Red Blood Cells % 0.1 %/100WBC (0.0-0.8); Platelet Count 264 10^3/uL (150-450); Red Blood Count 3.36 10^6/uL (3.63-4.92); Red Cell Distribution Width 14.5 % (12-17); White Blood Count 5.2 10^3/uL (3.8-11.8)
[2023-08-02 15:37] LABS: Creatinine, Serum 0.8 mg/dL (0.51-0.95); Magnesium 1.7 mg/dL (1.9-2.7); Potassium 3.4 mmol/L (3.5-5.0); eGFR CKD-EPI 74.9 (>60)
[2023-08-02] MEDS: Magnesium Sulfate 2 gm BAG 2 GM/50 ML BAG IVPB ONE (16:16)
[2023-08-02] MEDS: D5W 1000 ml BAG 1,000 ML IV SCH (17:35)
[2023-08-02] MEDS: KCL 20 MEQ/100 ML IVPREMIX 20 MEQ/100 ML BAG IV SCH (17:36)
[2023-08-03 07:00] LABS: ABS Lymphocytes 1.1 10^3/uL (1.0-4.8); ABS Monocytes 0.4 10^3/uL (0.0-0.9); ABS Neutrophils 3.4 10^3/uL (1.5-7.6); ABS Nucleated RBC 0.01 10^3/ul; Hematocrit 32.2 % (35-45); Hemoglobin 10.8 g/dL (11.5-14.3); Mean Corpuscular Hemoglobin 33.2 pg (27-33); Mean Corpuscular Hgb Conc 33.6 g/dL (31-36); Mean Corpuscular Volume 98.6 fL (80-97); Mean Platelet Volume 7.8 fL (7.5-11.2); Nucleated Red Blood Cells % 0.2 %/100WBC (0.0-0.8); Platelet Count 248 10^3/uL (150-450); Red Blood Count 3.27 10^6/uL (3.63-4.92); Red Cell Distribution Width 14.8 % (12-17); White Blood Count 4.9 10^3/uL (3.8-11.8)
[2023-08-03 07:03] LABS: Calcium 8.8 mg/dL (8.6-10.3); Creatinine, Serum 0.81 mg/dL (0.51-0.95); Magnesium 2.2 mg/dL (1.9-2.7); Potassium 4.1 mmol/L (3.5-5.0); eGFR CKD-EPI 73.8 (>60)
[2023-08-03] MEDS: D5W 1000 ml BAG 1,000 ML IV SCH (13:37)
[2023-08-04 06:57] LABS: ABS Basophils 0.1 10^3/uL (0.0-0.1); ABS Lymphocytes 1.4 10^3/uL (1.0-4.8); ABS Monocytes 0.6 10^3/uL (0.0-0.9); ABS Neutrophils 5.1 10^3/uL (1.5-7.6); ABS Nucleated RBC 0.01 10^3/ul; Hematocrit 32.3 % (35-45); Hemoglobin 11.2 g/dL (11.5-14.3); Lymphocyte % 19.2 %; Mean Corpuscular Hemoglobin 33.2 pg (27-33); Mean Corpuscular Hgb Conc 34.5 g/dL (31-36); Mean Corpuscular Volume 96.2 fL (80-97); Nucleated Red Blood Cells % 0.1 %/100WBC (0.0-0.8); Platelet Count 304 10^3/uL (150-450); Red Blood Count 3.36 10^6/uL (3.63-4.92); Red Cell Distribution Width 14.6 % (12-17); White Blood Count 7.1 10^3/uL (3.8-11.8)
[2023-08-04 07:29] LABS: Creatinine, Serum 0.87 mg/dL (0.51-0.95); Magnesium 2.1 mg/dL (1.9-2.7); Potassium 4.4 mmol/L (3.5-5.0); eGFR CKD-EPI 67.7 (>60)
[2023-08-04] MEDS: levETIRAcetam LIQ 500 MG/5 ML UDC PO SCH (10:50)
[2023-08-04] MEDS: D5W 1000 ml BAG 1,000 ML IV SCH (11:55)
[2023-08-05 11:11] LABS: ABS Lymphocytes 1.6 10^3/uL (1.0-4.8); ABS Monocytes 0.6 10^3/uL (0.0-0.9); Hematocrit 34.1 % (35-45); Hemoglobin 11.6 g/dL (11.5-14.3); Lymphocyte % 19.4 %; Mean Corpuscular Hemoglobin 33.1 pg (27-33); Mean Corpuscular Hgb Conc 34.1 g/dL (31-36); Mean Corpuscular Volume 97.2 fL (80-97); Mean Platelet Volume 7.9 fL (7.5-11.2); Platelet Count 304 10^3/uL (150-450); Red Blood Count 3.51 10^6/uL (3.63-4.92); White Blood Count 8.1 10^3/uL (3.8-11.8)
[2023-08-05] MEDS: Iodixanol 320 (CONTRAST) 100 ML SDV IV ONE (11:32)
[2023-08-05 11:47] LABS: Calcium 9.6 mg/dL (8.6-10.3); Creatinine, Serum 0.85 mg/dL (0.51-0.95); Potassium 4.7 mmol/L (3.5-5.0); eGFR CKD-EPI 69.6 (>60)
[2023-08-05 16:52] LABS: Calcium 9.5 mg/dL (8.6-10.3); Creatinine, Serum 0.94 mg/dL (0.51-0.95); eGFR CKD-EPI 61.7 (>60)
[2023-08-06 07:44] LABS: Calcium 9.6 mg/dL (8.6-10.3); Creatinine, Serum 0.89 mg/dL (0.51-0.95); Potassium 4.7 mmol/L (3.5-5.0); eGFR CKD-EPI 65.9 (>60)
[2023-08-07 06:13] LABS: Calcium 10.3 mg/dL (8.6-10.3); Creatinine, Serum 0.97 mg/dL (0.51-0.95); Potassium 4.8 mmol/L (3.5-5.0); eGFR CKD-EPI 59.4 (>60)
[2023-08-08 07:36] LABS: ABS Basophils 0.1 10^3/uL (0.0-0.1); ABS Lymphocytes 1.7 10^3/uL (1.0-4.8); ABS Monocytes 0.6 10^3/uL (0.0-0.9); ABS Neutrophils 5.8 10^3/uL (1.5-7.6); ABS Nucleated RBC 0.01 10^3/ul; Hematocrit 36.4 % (35-45); Hemoglobin 12.5 g/dL (11.5-14.3); Lymphocyte % 21.2 %; Mean Corpuscular Hemoglobin 33.1 pg (27-33); Mean Corpuscular Hgb Conc 34.4 g/dL (31-36); Mean Corpuscular Volume 96.3 fL (80-97); Mean Platelet Volume 8.4 fL (7.5-11.2); Nucleated Red Blood Cells % 0.1 %/100WBC (0.0-0.8); Platelet Count 418 10^3/uL (150-450); Red Blood Count 3.78 10^6/uL (3.63-4.92); Red Cell Distribution Width 15.6 % (12-17); White Blood Count 8.3 10^3/uL (3.8-11.8)
[2023-08-08 08:08] LABS: Calcium 9.8 mg/dL (8.6-10.3); Creatinine, Serum 1.08 mg/dL (0.51-0.95); Magnesium 2.4 mg/dL (1.9-2.7); eGFR CKD-EPI 52.3 (>60)
[2023-08-08 09:59] VITALS: BP 126/81
== END 2023-08-08 14:50 | DRG 101 ==
LOC: ED 19:28 → SUATTDRO 23:56 → EDHOLD 23:56 → ICU 07-25 01:30 → MED 07-31 17:09
PROVIDERS: ADMIT Internal Medicine; ATTEND Hospitalist

== ENCOUNTER 2024-02-12 20:50 | Inpatient (IN) ==
[2024-02-12] MEDS ORDERED: Acetaminophen IV 1 GM/100ML 1,000 MG/100 ML BAG IV ONE (21:16)
[2024-02-12] MEDS: Lactated Ringers 1000 ml BAG 1,000 ML IV ONE (21:21)
[2024-02-12] MEDS: Acetaminophen IV 1 GM/100ML 1,000 MG/100 ML BAG IV ONE (21:21)
[2024-02-12] MEDS: Piperacillin/Tazobac 3.375 BAG 3.375 GM/100 ML BAG IV ONE (21:38)
[2024-02-12 21:39] LABS: Urine Appearance Turbid; Urine Bilirubin Negative (Negative); Urine Blood Negative (Negative); Urine Color Light-Yellow; Urine Glucose Negative (Negative); Urine Ketones Negative (Negative); Urine Nitrite Negative (Negative); Urine Protein Trace (Negative); Urine Specific Gravity 1.005 (1.002-1.030); Urine Urobilinogen Negative (Negative); Urine pH 6.5 (5.0-8.0)
[2024-02-12 21:44] LABS: Activated Partial Thrombo Time 48.4 seconds (26.0-38.0); INR 1.2 (0.85-1.14); Urine Bacteria 1+ /HPF (Absent); Urine Red Blood Cell Trace(0-2/hpf) /HPF (0-Trace); Urine Squamous Epithelial Cell Present /HPF (Absent); Urine White Blood Cell 1+(6-10/hpf) /HPF (0-Trace)
[2024-02-12 22:00] LABS: ABS Basophils 0.1 10^3/uL (0.0-0.1); ABS Lymphocytes 0.3 10^3/uL (1.0-4.8); ABS Monocytes 0.5 10^3/uL (0.0-0.9); ABS Neutrophils 12.4 10^3/uL (1.5-7.6); Eosinophil % 0.1 %; Hematocrit 33.2 % (35-45); Hemoglobin 10.8 g/dL (11.5-14.3); Lymphocyte % 2.3 %; Mean Corpuscular Hemoglobin 31.3 pg (27-33); Mean Corpuscular Hgb Conc 32.7 g/dL (31-36); Mean Corpuscular Volume 95.7 fL (80-97); Mean Platelet Volume 7.7 fL (7.5-11.2); Platelet Count 367 10^3/uL (150-450); RBC Morphology Normal (Normal); Red Blood Count 3.46 10^6/uL (3.63-4.92); Red Cell Distribution Width 15.2 % (12-17); White Blood Count 13.2 10^3/uL (3.8-11.8)
[2024-02-12 22:06] LABS: High Sens Troponin Baseline 28 pg/mL (<15)
[2024-02-12 22:18] LABS: ALT 39 U/L (7-52); Albumin 3.6 g/dL (3.5-5.7); Albumin/Globulin Ratio 0.9 (1-3); Alkaline Phosphatase 171 U/L (35-149); Anion Gap 12 mmol/L (2-16); Blood Urea Nitrogen 18 mg/dL (6-24); C Reactive Protein 436.09 mg/L (<8.01); CO2 Carbon Dioxide 25 mmol/L (22-32); Calcium 9.3 mg/dL (8.6-10.3); Chloride 98 mmol/L (101-111); Globulin 3.8 g/dL (2-4); Glucose 128 mg/dL (70-100); Sodium 135 mmol/L (135-145); Total Bilirubin 1.6 mg/dL (0.2-1.0); Total Protein 7.4 g/dL (6.4-8.9); eGFR CKD-EPI 45.8 (>60)
[2024-02-12 22:23] LABS: PCO2 Arterial 32 mmHg (35-45); PO2 Arterial 88 mmHg (80-100)
[2024-02-12] MEDS: Vancomycin 1,000 MG in NS 0.9% 250 ml 250 ML IVPB ONE (22:34)
[2024-02-13 02:36] LABS: Potassium Redraw 4.1 mmol/L (3.5-5.0)
[2024-02-13] MEDS ORDERED: Albuterol HFA INHALER 8 gm MDI INH PRN (03:22)
[2024-02-13] MEDS: Enoxaparin 40 MG/0.4 ML SYR SUBCUT SCH (03:53)
[2024-02-13 04:41] LABS: TSH Ultra Thyroid Stim Horm 0.11 mcIU/mL (0.34-5.60)
[2024-02-13 04:52] LABS: Folate > 20.00 ng/mL (5.90-24.80)
[2024-02-13 04:53] LABS: Vitamin B12 897 pg/mL (180-914)
[2024-02-13 06:17] LABS: ABS Lymphocytes 0.6 10^3/uL (1.0-4.8); ABS Monocytes 0.9 10^3/uL (0.0-0.9); ABS Neutrophils 10.2 10^3/uL (1.5-7.6); Hematocrit 33.6 % (35-45); Hemoglobin 11.1 g/dL (11.5-14.3); Lymphocyte % 5.2 %; Mean Corpuscular Hemoglobin 32.6 pg (27-33); Mean Corpuscular Hgb Conc 33.2 g/dL (31-36); Mean Corpuscular Volume 98.3 fL (80-97); Mean Platelet Volume 7.5 fL (7.5-11.2); Platelet Count 284 10^3/uL (150-450); Red Blood Count 3.42 10^6/uL (3.63-4.92); Red Cell Distribution Width 15.1 % (12-17); White Blood Count 11.7 10^3/uL (3.8-11.8)
[2024-02-13 06:51] LABS: ALT 35 U/L (7-52); Albumin 3.4 g/dL (3.5-5.7); Albumin/Globulin Ratio 0.9 (1-3); Alkaline Phosphatase 160 U/L (35-149); Anion Gap 9 mmol/L (2-16); Blood Urea Nitrogen 18 mg/dL (6-24); CO2 Carbon Dioxide 24 mmol/L (22-32); Calcium 9.7 mg/dL (8.6-10.3); Chloride 103 mmol/L (101-111); Creatinine, Serum 1.27 mg/dL (0.51-0.95); Globulin 3.7 g/dL (2-4); Glucose 102 mg/dL (70-100); Sodium 136 mmol/L (135-145); Total Bilirubin 1.2 mg/dL (0.2-1.0); Total Protein 7.1 g/dL (6.4-8.9); eGFR CKD-EPI 42.8 (>60)
[2024-02-13] MEDS: SPIRIVA Respimat (tiotropium) 2.5 mcg/inh Inhaler INH SCH (08:15)
[2024-02-13 08:40] LABS: Potassium Redraw 4.2 mmol/L (3.5-5.0)
[2024-02-13] MEDS: cefTRIAXone 1 gm/50 mL D5W 1 GM/50 ML BAG IV SCH (08:59)
[2024-02-13 09:56] LABS: Free T3 2.23 pg/mL (2.5-3.9); Free T4 1.52 ng/dL (0.61-1.12)
[2024-02-13] MEDS: Aspirin EC 81 mg TAB.EC (enteric coated) PO SCH (10:09)
[2024-02-13] MEDS: Fluticasone NASAL SPRAY 50MCG 16 gm SPRAY BTL INTRANASAL SCH (10:58)
[2024-02-13] MEDS: NS 0.9% 500 ml BAG 500 ML IV SCH (10:58)
[2024-02-13] MEDS ORDERED: Zosyn per Pharmacy NOTE FOLLOW UP SCH (13:00)
[2024-02-13] MEDS: Piperacillin/Tazobac 3.375 BAG 3.375 GM/100 ML BAG IV ONE (13:05)
[2024-02-13 13:31] LABS: ABS Lymphocytes 0.3 10^3/uL (1.0-4.8); ABS Monocytes 0.6 10^3/uL (0.0-0.9); ABS Neutrophils 9.2 10^3/uL (1.5-7.6); ABS Nucleated RBC 0.01 10^3/ul; Hematocrit 27.8 % (35-45); Hemoglobin 9.5 g/dL (11.5-14.3); Mean Corpuscular Hemoglobin 32.8 pg (27-33); Mean Corpuscular Hgb Conc 34.1 g/dL (31-36); Mean Platelet Volume 7.4 fL (7.5-11.2); Nucleated Red Blood Cells % 0.1 %/100WBC (0.0-0.8); Platelet Count 301 10^3/uL (150-450); White Blood Count 10.2 10^3/uL (3.8-11.8)
[2024-02-13] MEDS: Acetaminophen IV 1 GM/100ML 1,000 MG/100 ML BAG IV ONE (13:46)
[2024-02-13 14:02] LABS: Albumin 2.9 g/dL (3.5-5.7); Albumin/Globulin Ratio 0.9 (1-3); Calcium 8.4 mg/dL (8.6-10.3); Creatinine, Serum 1.17 mg/dL (0.51-0.95); Globulin 3.1 g/dL (2-4); Potassium 3.8 mmol/L (3.5-5.0); eGFR CKD-EPI 47.2 (>60)
[2024-02-13] MEDS: LACTATED RINGERS 500 ML BAG IV ONE (16:14)
[2024-02-13] MEDS: NS 0.9% 1000 ml BAG 1,000 ML IV SCH (16:15)
[2024-02-13] MEDS: ZOSYN 3.375 GM Q8H per EXTENDED INFUSION IV SCH (17:34)
[2024-02-13] MEDS: Mometasone 220 MCG MDI INH SCH (21:00)
[2024-02-13] MEDS: OLANZapine 10 mg TAB*ODT PO SCH (22:25)
[2024-02-13] MEDS: Pantoprazole VIAL 40 MG VIAL IV SCH (22:36)
[2024-02-13] MEDS: levETIRAcetam 500 MG IVPREMIX 500 MG/100 ML BAG IV SCH (22:37)
[2024-02-13] MEDS: Nystatin TOP POWDER 15 GM BTL TOPICAL SCH (23:03)
[2024-02-14] MEDS: Levothyroxine 100 MCG/5 ML VIAL IV SCH (06:07)
[2024-02-14] MEDS: ZOSYN 3.375 GM Q8H per EXTENDED INFUSION IV SCH (06:09)
[2024-02-14 06:30] LABS: ABS Lymphocytes 0.6 10^3/uL (1.0-4.8); ABS Monocytes 1.2 10^3/uL (0.0-0.9); ABS Neutrophils 8.8 10^3/uL (1.5-7.6); Hematocrit 30.2 % (35-45); Hemoglobin 9.8 g/dL (11.5-14.3); Mean Corpuscular Hgb Conc 32.6 g/dL (31-36); Mean Platelet Volume 7.5 fL (7.5-11.2); Platelet Count 310 10^3/uL (150-450); Red Blood Count 3.08 10^6/uL (3.63-4.92); Red Cell Distribution Width 15.5 % (12-17); White Blood Count 10.7 10^3/uL (3.8-11.8)
[2024-02-14 06:48] LABS: Albumin 3.1 g/dL (3.5-5.7); Albumin/Globulin Ratio 0.9 (1-3); Calcium 9.4 mg/dL (8.6-10.3); Creatinine, Serum 1.24 mg/dL (0.51-0.95); Globulin 3.3 g/dL (2-4); Magnesium 2.5 mg/dL (1.9-2.7); Potassium 3.9 mmol/L (3.5-5.0); Total Bilirubin 0.8 mg/dL (0.2-1.0); Total Protein 6.4 g/dL (6.4-8.9)
[2024-02-14] MEDS: Lactated Ringers 1000 ml BAG 1,000 ML IV SCH ×3 (10:00→18:27)
[2024-02-14] MEDS: D5W 1000 ml BAG 1,000 ML IV SCH ×2 (12:38→19:02)
[2024-02-14 17:47] LABS: Calcium 9.4 mg/dL (8.6-10.3); Creatinine, Serum 1.22 mg/dL (0.51-0.95); Potassium 3.9 mmol/L (3.5-5.0); eGFR CKD-EPI 44.9 (>60)
[2024-02-15 01:19] LABS: Urine Osmo 209 mOsm/kg (150-1150)
[2024-02-15 01:22] LABS: Creatinine, Serum 1.22 mg/dL (0.51-0.95); Potassium 4.1 mmol/L (3.5-5.0); eGFR CKD-EPI 44.9 (>60)
[2024-02-15 06:49] LABS: ABS Lymphocytes 0.8 10^3/uL (1.0-4.8); ABS Monocytes 0.6 10^3/uL (0.0-0.9); ABS Neutrophils 5.9 10^3/uL (1.5-7.6); ABS Nucleated RBC 0.01 10^3/ul; Hematocrit 27.2 % (35-45); Hemoglobin 8.9 g/dL (11.5-14.3); Lymphocyte % 11.3 %; Mean Corpuscular Hemoglobin 31.8 pg (27-33); Mean Corpuscular Hgb Conc 32.6 g/dL (31-36); Mean Corpuscular Volume 97.5 fL (80-97); Mean Platelet Volume 7.7 fL (7.5-11.2); Nucleated Red Blood Cells % 0.1 %/100WBC (0.0-0.8); Platelet Count 332 10^3/uL (150-450); Red Blood Count 2.79 10^6/uL (3.63-4.92); Red Cell Distribution Width 15.7 % (12-17); White Blood Count 7.3 10^3/uL (3.8-11.8)
[2024-02-15 07:02] LABS: Calcium 9.2 mg/dL (8.6-10.3); Creatinine, Serum 1.29 mg/dL (0.51-0.95)
[2024-02-15] MEDS: D5W 1000 ml BAG 1,000 ML IV SCH ×2 (11:31→11:33)
[2024-02-15] MEDS: cefTRIAXone 1 gm/50 mL D5W 1 GM/50 ML BAG IV SCH (11:32)
[2024-02-15 14:49] LABS: Calcium 8.6 mg/dL (8.6-10.3); Creatinine, Serum 1.18 mg/dL (0.51-0.95); Potassium 3.9 mmol/L (3.5-5.0); eGFR CKD-EPI 46.7 (>60)
[2024-02-15] MEDS: Acetaminophen IV 1 GM/100ML 1,000 MG/100 ML BAG IV PRN (21:20)
[2024-02-15] MEDS: levETIRAcetam 500 MG IVPREMIX 500 MG/100 ML BAG IV SCH (22:02)
[2024-02-15] MEDS: Pantoprazole VIAL 40 MG VIAL IV ONE (22:02)
[2024-02-15] MEDS: Lactated Ringers 1000 ml BAG 1,000 ML IV ONE (23:39)
[2024-02-16 06:38] LABS: ABS Monocytes 0.6 10^3/uL (0.0-0.9); ABS Neutrophils 4.9 10^3/uL (1.5-7.6); Hematocrit 30.5 % (35-45); Hemoglobin 9.8 g/dL (11.5-14.3); Lymphocyte % 15.9 %; Mean Corpuscular Hemoglobin 31.8 pg (27-33); Mean Corpuscular Hgb Conc 32.1 g/dL (31-36); Mean Corpuscular Volume 99.1 fL (80-97); Mean Platelet Volume 7.3 fL (7.5-11.2); Platelet Count 338 10^3/uL (150-450); Red Blood Count 3.08 10^6/uL (3.63-4.92); Red Cell Distribution Width 15.6 % (12-17); White Blood Count 6.6 10^3/uL (3.8-11.8)
[2024-02-16 08:36] LABS: Albumin 2.9 g/dL (3.5-5.7); Albumin/Globulin Ratio 0.9 (1-3); Calcium 9.2 mg/dL (8.6-10.3); Creatinine, Serum 1.26 mg/dL (0.51-0.95); Globulin 3.4 g/dL (2-4); Potassium 4.6 mmol/L (3.5-5.0); Total Bilirubin 0.5 mg/dL (0.2-1.0); Total Protein 6.3 g/dL (6.4-8.9); eGFR CKD-EPI 43.2 (>60)
[2024-02-16] MEDS ORDERED: Dextrose 50% Syringe 50 ml 25 GM/50 ML SYRINGE IV PUSH PRN (09:14)
[2024-02-16] MEDS ORDERED: D5W 1000 ml BAG 1,000 ML IV SCH (10:00)
[2024-02-16] MEDS: D5W 1000 ml BAG 1,000 ML IV SCH ×2 (10:23→18:21)
[2024-02-16 17:07] LABS: Calcium 8.6 mg/dL (8.6-10.3); Creatinine, Serum 1.09 mg/dL (0.51-0.95); Potassium 4.3 mmol/L (3.5-5.0); eGFR CKD-EPI 51.4 (>60)
[2024-02-16] MEDS: OLANZapine 10 mg TAB*ODT PO SCH (19:45)
[2024-02-16 20:57] LABS: Venous Bicarbonate HCO3 26.6 mmol/L (24-28)
[2024-02-17] MEDS: Iodixanol 320 (CONTRAST) 100 ML SDV IV ONE (03:46)
[2024-02-17 07:19] LABS: Calcium 8.9 mg/dL (8.6-10.3); Creatinine, Serum 1.13 mg/dL (0.51-0.95); Potassium 4.6 mmol/L (3.5-5.0); eGFR CKD-EPI 49.2 (>60)
[2024-02-17 11:43] LABS: HDL Cholesterol 32.1 mg/dL
[2024-02-17] MEDS: D5W 1000 ml BAG 1,000 ML IV SCH (11:48)
[2024-02-17] MEDS: D5W 500 ml BAG 500 ML IV SCH ×2 (11:48→18:15)
[2024-02-17] MEDS ORDERED: Sulfur Hexaflouride MICROSPHR 25 MG VIAL IV PRN (16:07)
[2024-02-17 16:44] LABS: TSH Ultra Thyroid Stim Horm 0.09 mcIU/mL (0.34-5.60)
[2024-02-17] MEDS ORDERED: Lorazepam PYXIS KEY PRN (16:46)
[2024-02-17] MEDS: LORazepam 2 mg VIAL 1 ml IV PUSH ONE (17:01)
[2024-02-17] MEDS: levETIRAcetam IV 750 MG in NS 0.9% 100 ml BAG 100 ML IVPB SCH (17:01)
[2024-02-17] MEDS: levETIRAcetam 1000MG IVPREMIX 1,000 MG/100 ML BAG IVPB SCH (17:07)
[2024-02-17 17:19] LABS: ABS Lymphocytes 1.2 10^3/uL (1.0-4.8); ABS Monocytes 0.6 10^3/uL (0.0-0.9); ABS Nucleated RBC 0.01 10^3/ul; Hematocrit 31.6 % (35-45); Hemoglobin 10.6 g/dL (11.5-14.3); Lymphocyte % 10.8 %; Mean Corpuscular Hemoglobin 32.6 pg (27-33); Mean Corpuscular Hgb Conc 33.6 g/dL (31-36); Mean Platelet Volume 7.5 fL (7.5-11.2); Nucleated Red Blood Cells % 0.1 %/100WBC (0.0-0.8); Platelet Count 399 10^3/uL (150-450); Red Blood Count 3.26 10^6/uL (3.63-4.92); Red Cell Distribution Width 15.5 % (12-17); White Blood Count 10.8 10^3/uL (3.8-11.8)
[2024-02-17 17:55] LABS: Albumin 2.9 g/dL (3.5-5.7); Albumin/Globulin Ratio 0.8 (1-3); Calcium 8.2 mg/dL (8.6-10.3); Creatinine, Serum 1.05 mg/dL (0.51-0.95); Globulin 3.5 g/dL (2-4); Potassium 4.6 mmol/L (3.5-5.0); Total Bilirubin 0.4 mg/dL (0.2-1.0); Total Protein 6.4 g/dL (6.4-8.9); eGFR CKD-EPI 53.7 (>60)
[2024-02-17] MEDS: Enoxaparin 40 MG/0.4 ML SYR SUBCUT SCH (21:39)
[2024-02-17 22:02] LABS: Calcium 8.6 mg/dL (8.6-10.3); Creatinine, Serum 1.16 mg/dL (0.51-0.95); Potassium 4.7 mmol/L (3.5-5.0); eGFR CKD-EPI 47.7 (>60)
[2024-02-18] MEDS: D5W 1000 ml BAG 1,000 ML IV SCH ×3 (04:03→18:05)
[2024-02-18 04:29] LABS: ABS Monocytes 0.6 10^3/uL (0.0-0.9); ABS Neutrophils 9.6 10^3/uL (1.5-7.6); Hematocrit 32.7 % (35-45); Hemoglobin 10.9 g/dL (11.5-14.3); Lymphocyte % 9.3 %; Mean Corpuscular Hemoglobin 32.2 pg (27-33); Mean Corpuscular Hgb Conc 33.4 g/dL (31-36); Mean Corpuscular Volume 96.4 fL (80-97); Mean Platelet Volume 7.4 fL (7.5-11.2); Platelet Count 402 10^3/uL (150-450); White Blood Count 11.3 10^3/uL (3.8-11.8)
[2024-02-18 05:05] LABS: Calcium 8.8 mg/dL (8.6-10.3); Creatinine, Serum 1.11 mg/dL (0.51-0.95); Magnesium 2.3 mg/dL (1.9-2.7); Potassium 4.5 mmol/L (3.5-5.0); eGFR CKD-EPI 50.2 (>60)
[2024-02-18 13:24] LABS: Free T3 2.57 pg/mL (2.5-3.9)
[2024-02-18 13:26] LABS: Free T4 1.16 ng/dL (0.61-1.12)
[2024-02-18 17:07] LABS: Calcium 8.9 mg/dL (8.6-10.3); Creatinine, Serum 1.11 mg/dL (0.51-0.95); Potassium 4.5 mmol/L (3.5-5.0); eGFR CKD-EPI 50.2 (>60)
[2024-02-18] MEDS: levETIRAcetam 1000MG IVPREMIX 1,000 MG/100 ML BAG IVPB SCH (20:54)
[2024-02-19] MEDS: Acetaminophen IV 1 GM/100ML 1,000 MG/100 ML BAG IV ONE
[2024-02-20] MEDS: Albuterol/Ipratropium NEB.SOL (2.5/0.5 MG) 3 ML NEB.SOLN INH ONE (00:22)
[2024-02-20 00:25] LABS: ABS Neutrophils 6.9 10^3/uL (1.5-7.6); Hematocrit 31.9 % (35-45); Hemoglobin 10.5 g/dL (11.5-14.3); Mean Corpuscular Hemoglobin 31.7 pg (27-33); Mean Corpuscular Volume 96.2 fL (80-97); Mean Platelet Volume 7.7 fL (7.5-11.2); Platelet Count 479 10^3/uL (150-450); Red Blood Count 3.32 10^6/uL (3.63-4.92); Red Cell Distribution Width 15.3 % (12-17); White Blood Count 8.9 10^3/uL (3.8-11.8)
[2024-02-20 00:26] LABS: ABS Lymphocytes 1.3 10^3/uL (1.0-4.8); ABS Monocytes 0.6 10^3/uL (0.0-0.9); ABS Nucleated RBC 0.01 10^3/ul; Eosinophil % 0.1 %; Lymphocyte % 14.7 %; Nucleated Red Blood Cells % 0.1 %/100WBC (0.0-0.8)
[2024-02-20 00:52] LABS: Albumin 3.2 g/dL (3.5-5.7); Albumin/Globulin Ratio 0.9 (1-3); Calcium 8.7 mg/dL (8.6-10.3); Creatinine, Serum 1.03 mg/dL (0.51-0.95); Globulin 3.7 g/dL (2-4); Magnesium 2.4 mg/dL (1.9-2.7); Potassium 4.9 mmol/L (3.5-5.0); Total Bilirubin 0.4 mg/dL (0.2-1.0); Total Protein 6.9 g/dL (6.4-8.9)
[2024-02-20 05:47] LABS: Hematocrit 32.4 % (35-45); Hemoglobin 10.9 g/dL (11.5-14.3); Mean Corpuscular Hemoglobin 32.6 pg (27-33); Mean Corpuscular Hgb Conc 33.8 g/dL (31-36); Mean Corpuscular Volume 96.6 fL (80-97); Mean Platelet Volume 7.6 fL (7.5-11.2); Platelet Count 458 10^3/uL (150-450); Red Blood Count 3.35 10^6/uL (3.63-4.92); Red Cell Distribution Width 15.3 % (12-17); White Blood Count 8.1 10^3/uL (3.8-11.8)
[2024-02-20 06:07] LABS: Calcium 9.1 mg/dL (8.6-10.3); Magnesium 2.5 mg/dL (1.9-2.7); Potassium 4.8 mmol/L (3.5-5.0)
[2024-02-20] MEDS: Azithromycin 500 mg/250 ml NS 500 MG/250 ML BAG IVPB SCH (06:12)
[2024-02-20] MEDS: Lactated Ringers 1000 ml BAG 1,000 ML IV ONE (07:58)
[2024-02-20] MEDS ORDERED: Dextrose 50% Syringe 50 ml 25 GM/50 ML SYRINGE IV PUSH PRN (09:21)
[2024-02-20] MEDS: D5W 1000 ml BAG 1,000 ML IV SCH (10:41)
[2024-02-20] MEDS: Metoprolol Tartrate 5 mg VIAL 5 ml VIAL (1 mg/ml) IV SCH (10:56)
[2024-02-20] MEDS: levETIRAcetam IV 750 MG in NS 0.9% 100 ml BAG 100 ML IVPB SCH (11:20)
[2024-02-21] MEDS: Levothyroxine 100 MCG/5 ML VIAL IV SCH (05:35)
[2024-02-21 07:00] LABS: Hematocrit 31.4 % (35-45); Hemoglobin 10.1 g/dL (11.5-14.3); Mean Corpuscular Hemoglobin 31.8 pg (27-33); Mean Corpuscular Hgb Conc 32.2 g/dL (31-36); Mean Platelet Volume 7.9 fL (7.5-11.2); Platelet Count 432 10^3/uL (150-450); Red Blood Count 3.18 10^6/uL (3.63-4.92); Red Cell Distribution Width 15.4 % (12-17)
[2024-02-21 07:26] LABS: Calcium 8.8 mg/dL (8.6-10.3); Creatinine, Serum 0.81 mg/dL (0.51-0.95); Magnesium 2.2 mg/dL (1.9-2.7); Potassium 4.7 mmol/L (3.5-5.0); eGFR CKD-EPI 73.3 (>60)
[2024-02-21] MEDS: D5W 1000 ml BAG 1,000 ML IV SCH (11:16)
[2024-02-22 06:46] LABS: Calcium 9.1 mg/dL (8.6-10.3); Creatinine, Serum 0.85 mg/dL (0.51-0.95); eGFR CKD-EPI 69.2 (>60)
[2024-02-23 06:56] LABS: Calcium 8.6 mg/dL (8.6-10.3); Creatinine, Serum 0.9 mg/dL (0.51-0.95); Potassium 4.2 mmol/L (3.5-5.0); eGFR CKD-EPI 64.6 (>60)
[2024-02-23] MEDS: fentaNYL 100 mcg/2 ml 50 MCG/ML VIAL ONE ×2 (16:07→16:08)
[2024-02-23] MEDS: Lidocaine 2% JELLY 6 ML Topical TOPICAL ONE (16:09)
[2024-02-24 06:42] LABS: Calcium 8.9 mg/dL (8.6-10.3); Creatinine, Serum 0.89 mg/dL (0.51-0.95); Potassium 4.3 mmol/L (3.5-5.0); eGFR CKD-EPI 65.5 (>60)
[2024-02-24] MEDS: Pantoprazole VIAL 40 MG VIAL IV SCH (13:14)
[2024-02-25 06:50] LABS: Calcium 9.4 mg/dL (8.6-10.3); Creatinine, Serum 0.91 mg/dL (0.51-0.95); Potassium 4.4 mmol/L (3.5-5.0); eGFR CKD-EPI 63.8 (>60)
[2024-02-25] MEDS: D5W 1000 ml BAG 1,000 ML IV SCH (10:59)
[2024-02-25 17:03] LABS: Blood Urea Nitrogen 19 mg/dL (6-24); CO2 Carbon Dioxide 24 mmol/L (22-32); Calcium 9.1 mg/dL (8.6-10.3); Chloride 110 mmol/L (101-111); Creatinine, Serum 0.93 mg/dL (0.51-0.95); Glucose 142 mg/dL (70-100); Sodium 144 mmol/L (135-145); eGFR CKD-EPI 62.1 (>60)
[2024-02-25 17:04] LABS: Anion Gap 10 mmol/L (2-16)
[2024-02-26 08:17] LABS: ABS Lymphocytes 1.3 10^3/uL (1.0-4.8); ABS Monocytes 0.4 10^3/uL (0.0-0.9); ABS Neutrophils 5.7 10^3/uL (1.5-7.6); ABS Nucleated RBC 0.01 10^3/ul; Hematocrit 32.5 % (35-45); Hemoglobin 10.9 g/dL (11.5-14.3); Lymphocyte % 17.3 %; Mean Corpuscular Hemoglobin 32.8 pg (27-33); Mean Corpuscular Hgb Conc 33.4 g/dL (31-36); Mean Corpuscular Volume 98.2 fL (80-97); Mean Platelet Volume 7.9 fL (7.5-11.2); Nucleated Red Blood Cells % 0.1 %/100WBC (0.0-0.8); Platelet Count 524 10^3/uL (150-450); Red Blood Count 3.31 10^6/uL (3.63-4.92); Red Cell Distribution Width 16.6 % (12-17); White Blood Count 7.3 10^3/uL (3.8-11.8)
[2024-02-26 08:59] LABS: Calcium 9.5 mg/dL (8.6-10.3); Creatinine, Serum 0.88 mg/dL (0.51-0.95); Magnesium 2.2 mg/dL (1.9-2.7); Potassium 4.7 mmol/L (3.5-5.0); eGFR CKD-EPI 66.4 (>60)
[2024-02-26] MEDS: D5W 1000 ml BAG 1,000 ML IV SCH (12:52)
[2024-02-26 17:10] LABS: Calcium 9.9 mg/dL (8.6-10.3); Creatinine, Serum 0.9 mg/dL (0.51-0.95); Potassium 4.4 mmol/L (3.5-5.0); eGFR CKD-EPI 64.6 (>60)
[2024-02-26] MEDS: Acetaminophen IV 1 GM/100ML 1,000 MG/100 ML BAG IV SCH (21:15)
[2024-02-27 05:00] LABS: Urine Appearance Clear; Urine Bilirubin Negative (Negative); Urine Blood Negative (Negative); Urine Color Light-Yellow; Urine Glucose Negative (Negative); Urine Ketones Negative (Negative); Urine Nitrite Negative (Negative); Urine Protein Negative (Negative); Urine Urobilinogen Negative (Negative); Urine pH 6.5 (5.0-8.0)
[2024-02-27 07:45] LABS: Calcium 9.6 mg/dL (8.6-10.3); Creatinine, Serum 0.9 mg/dL (0.51-0.95); Magnesium 2.1 mg/dL (1.9-2.7); Potassium 4.7 mmol/L (3.5-5.0); eGFR CKD-EPI 64.6 (>60)
[2024-02-27] MEDS: Nystatin TOP POWDER 15 GM BTL TOPICAL SCH (09:50)
[2024-02-28 07:25] LABS: Calcium 9.7 mg/dL (8.6-10.3); Creatinine, Serum 0.98 mg/dL (0.51-0.95); Potassium 4.5 mmol/L (3.5-5.0); eGFR CKD-EPI 58.3 (>60)
[2024-02-28 09:52] VITALS: BP 124/78
== END 2024-02-28 12:45 | DRG 871 ==
LOC: ED 20:50 → EDHOLD 20:50 → SUATTDRO 02-13 01:06 → OBSVTOIN 02-13 01:06 → MED 02-13 02:18
PROVIDERS: ADMIT Hospitalist; ATTEND Internal Medicine